=== PATIENT | female | born 1945 | race Caucasian/White ===

== ENCOUNTER 2016-04-20 09:49 | Outpatient (RCR) ==
[2016-02-21 20:06] VITALS: BMI 19.7
[2016-05-19 13:34] VITALS: BP 134/62
== END 2016-05-19 ==
LOC: PUL.REHAB 09:49
PROVIDERS: ATTEND Internal Medicine
DX: J44.9 Chronic obstructive pulmonary disease, unspecified (principal)

== ENCOUNTER 2016-05-20 07:58 | Outpatient (RCR) ==
[2016-02-21 20:06] VITALS: BMI 19.7
== END 2016-06-16 ==
LOC: PUL.REHAB 07:58
PROVIDERS: ATTEND Internal Medicine
DX: J44.9 Chronic obstructive pulmonary disease, unspecified (principal)

== ENCOUNTER 2016-05-27 07:02 | Inpatient (IN) ==
[2016-05-27 07:11] LABS: ABG PH 7.304 (7.35-7.45)
[2016-05-27 07:12] LABS: ABG BASE EXCESS 11 (-2.0-2.0); ABG HCO3 37.1 (22.0-26.0); ABG PCO2 74.7 mmHg (35-45); ABG TCO2 39 (22.0-28.0)
--- NOTE | 2016-05-27 07:17 | ED.PDOC ---
General ED Provider: Dr. HORACIO VILLEDA JR Chief Complaint: Shortness of Air Stated Complaint: patient states she has been short of breath for approx 1 1/2 weeks but became severe yesterday. states cough is prod. of yellow phlegm. also c/o nasal congestion. patient states it is severe[End] Time Seen by Physician: 07:05 Mode of Arrival: Wheelchair Information Source: Patient, Family Exam Limitations: Clinical condition Primary Care Provider: SIDDHARTHA BRITO Nursing and Triage Documentation Reviewed and Agree: No Review of Systems - Review Of Systems Constitutional: Reports: Malaise Eyes: Reports: No symptoms Ears, Nose, Mouth, Throat: Reports: No symptoms Respiratory: Reports: Cough, Short of air, Wheezing Cardiac: Reports: No symptoms GI: Reports: No symptoms : Reports: No symptoms Musculoskeletal: Reports: No symptoms Skin: Reports: No symptoms Neurological: Reports: No symptoms Endocrine: Reports: No symptoms Hematologic/Lymphatic: Reports: No symptoms All Other Systems: Other Past Medical History - Past Medical History Endocrine: Reports: Dyslipidemia Cardiovascular: Reports: Hypertension Respiratory: Reports: COPD Hematological: Reports: None Gastrointestinal: Reports: None Genitourinary: Reports: None Neuro/Psych: Reports: Anxiety, Depression Musculoskeletal: Reports: None Cancer: Reports: None Last Menstrual Period: n/a - Surgical History General Surgical History: Reports: Unknown - Family History Family History: Reports: Unknown - Social History Smoking Status: Current every day smoker, Heavy tobacco smoker Hx Substance Use: No Alcohol Screening: Occasionally Physical Exam - Physical Exam Appearance: Ill-appearing, Thin Pain Distress: Severe Eyes: ARIEL, EOMI, Conjunctiva clear ENT: Ears normal, Nose normal, Oropharynx normal Neck: Supple Respiratory: Airway patent, Breath sounds diminished, Wheezes Cardiovascular: RRR, Pulses normal, No rub, No murmur GI/: Soft, Nontender, No masses, Bowel sounds normal, No Organomegaly Musculoskeletal: Normal strength, ROM intact, No edema, No calf tenderness Skin: Warm, Dry, Normal color Neurological: Sensation intact, Motor intact, Reflexes intact, Cranial nerves intact, Alert, Oriented Psychiatric: Anxious Interpretation - EKG Interpretation Time of EKG #1: 07:15 Rate: Normal Rhythm: Sinus Ectopy: PVCs, PACs Trevor: NL ST Segment: Normal (invertedt waves deep and s waves) Critical Care Note - Critical Care Note Total Time (mins): 10 Course - Course Hematology/Chemistry: 05/27/16 07:30 05/27/16 07:30 Orders, Labs, Meds: Lab Review 05/27/16 05/27/16 05/27/16 07:04 07:22 07:30 WBC 12.89 H RBC 3.59 L Hgb 9.9 L Hct 32.6 L MCV 90.8 MCH 27.6 MCHC 30.4 L RDW Coeff of Tr 14.3 Plt Count 156 Immature Gran % (Auto) 1.7 Neut % (Auto) 74.6 Lymph % (Auto) 13.9 [place] % (Auto) 9.4 Eos % (Auto) 0.2 Baso % (Auto) 0.2 Immature Gran # (Auto) 0.2 Neut # 9.6 H Lymph # 1.8 [place] # 1.2 Eos # 0.0 Baso # 0.0 D-Dimer 0.75 Puncture Site R radial Rb O2 Saturation 87.0 L 90.0 L ABG pH 7.304 L 7.337 L ABG pCO2 74.7 H 70.4 H ABG pO2 61.0 L 64.0 L ABG HCO3 37.1 H 37.7 H ABG Total CO2 39 H 40 H ABG Base Excess 11 H 12 H Miki Test + O2 Delivery Device Nc Nc Oxygen Liter Flow 2.50 2.00 FiO2 % 28.0 Sodium 142 Potassium 4.0 Chloride 96 L Carbon Dioxide 37 H Anion Gap 13.0 BUN 14 Creatinine 0.87 Estimated GFR (MDRD) 64.00 BUN/Creatinine Ratio 16.09 Glucose 137 H Lactic Acid 9.6 Calcium 9.7 Total Bilirubin 0.37 AST 18 ALT 24 Alkaline Phosphatase 62 Total Creatine Kinase 31 Troponin I 0.0190 B-Natriuretic Peptide 1147 H Total Protein 6.4 Albumin 3.5 Globulin 2.9 Albumin/Globulin Ratio 1.21 Procalcitonin < 0.05 Orders Category Date Time Status ADMIT PATIENT INPATIENT .TO [facility] (MONITORED BED) ADMISSION 05/27/16 09: 09 Active ABG DRAW REQUEST Stat CARDIO 05/27/16 07:04 Completed ABG DRAW REQUEST Urgent CARDIO 05/27/16 07:50 Completed EKG-(ED ONLY) Stat CARDIO 05/27/16 07:03 Completed EKG-(IP & OP ONLY) DAILY CARDIO 05/28/16 06:00 Ordered EKG-(IP & OP ONLY) DAILY CARDIO 05/29/16 06:00 Ordered EKG-(IP & OP ONLY) DAILY CARDIO 05/30/16 06:00 Ordered NEBULIZER TREATMENT Routine CARDIO 05/27/16 09:14 Active NEBULIZER TREATMENT Stat CARDIO 05/27/16 07:22 Completed OXYGEN Routine CARDIO 05/27/16 09:12 Active ACTIVITY .Early Mobilization for VTE Prevention CARE 05/27/16 09:09 Completed INTAKE & OUTPUT Q8HR CARE 05/27/16 09:09 Active TELEMETRY MONITORING TELE CARE 05/27/16 09:10 Active VITAL SIGNS Q4HR CARE 05/27/16 09:09 Active CARDIAC DIET DIETARY 05/27/16 Lunch Ordered ED APPLY O2 .ONCE EMERGENCY 05/27/16 07:03 Active ED POSTAL SUPPORT EMPLOYEE APPLIED .ONCE EMERGENCY 05/27/16 07:03 Active ED IV/MEDIPORT/POWERPORT .ONCE EMERGENCY 05/27/16 07:03 Active ABG Stat LAB 05/27/16 07:04 Completed ABG Stat LAB 05/27/16 07:22 Completed B-TYPE NATRIURETIC PEPTIDE Stat LAB 05/27/16 07:30 Completed BLOOD CULTURE Stat LAB 05/27/16 07:30 Received CBC W/ AUTO DIFF DAILY@0600 LAB 05/28/16 06:00 Ordered CBC W/ AUTO DIFF DAILY@0600 LAB 05/29/16 06:00 Ordered CBC W/ AUTO DIFF DAILY@0600 LAB 05/30/16 06:00 Ordered CBC W/ AUTO DIFF DAILY@0600 LAB 05/31/16 06:00 Ordered CBC W/ AUTO DIFF DAILY@0600 LAB 06/01/16 06:00 Ordered CBC W/ AUTO DIFF DAILY@0600 LAB 06/02/16 06:00 Ordered CBC W/ AUTO DIFF DAILY@0600 LAB 06/03/16 06:00 Ordered CBC W/ AUTO DIFF DAILY@0600 LAB 06/04/16 06:00 Ordered CBC W/ AUTO DIFF DAILY@0600 LAB 06/05/16 06:00 Ordered CBC W/ AUTO DIFF DAILY@0600 LAB 06/06/16 06:00 Ordered CBC W/ AUTO DIFF DAILY@0600 LAB 06/07/16 06:00 Ordered CBC W/ AUTO DIFF DAILY@0600 LAB 06/08/16 06:00 Ordered CBC W/ AUTO DIFF DAILY@0600 LAB 06/09/16 06:00 Ordered CBC W/ AUTO DIFF DAILY@0600 LAB 06/10/16 06:00 Ordered CBC W/ AUTO DIFF DAILY@0600 LAB 06/11/16 06:00 Ordered CBC W/ AUTO DIFF DAILY@0600 LAB 06/12/16 06:00 Ordered CBC W/ AUTO DIFF DAILY@0600 LAB 06/13/16 06:00 Ordered CBC W/ AUTO DIFF DAILY@0600 LAB 06/14/16 06:00 Ordered CBC W/ AUTO DIFF DAILY@0600 LAB 06/15/16 06:00 Ordered CBC W/ AUTO DIFF DAILY@0600 LAB 06/16/16 06:00 Ordered CBC W/ AUTO DIFF Stat LAB 05/27/16 07:30 Completed COMPREHENSIVE METABOLIC PANEL DAILY@0600 LAB 05/28/16 06:00 Ordered COMPREHENSIVE METABOLIC PANEL DAILY@0600 LAB 05/29/16 06:00 Ordered COMPREHENSIVE METABOLIC PANEL DAILY@0600 LAB 05/30/16 06:00 Ordered COMPREHENSIVE METABOLIC PANEL DAILY@0600 LAB 05/31/16 06:00 Ordered COMPREHENSIVE METABOLIC PANEL DAILY@0600 LAB 06/01/16 06:00 Ordered COMPREHENSIVE METABOLIC PANEL DAILY@0600 LAB 06/02/16 06:00 Ordered COMPREHENSIVE METABOLIC PANEL DAILY@0600 LAB 06/03/16 06:00 Ordered COMPREHENSIVE METABOLIC PANEL DAILY@0600 LAB 06/04/16 06:00 Ordered COMPREHENSIVE METABOLIC PANEL DAILY@0600 LAB 06/05/16 06:00 Ordered COMPREHENSIVE METABOLIC PANEL DAILY@0600 LAB 06/06/16 06:00 Ordered COMPREHENSIVE METABOLIC PANEL DAILY@0600 LAB 06/07/16 06:00 Ordered COMPREHENSIVE METABOLIC PANEL DAILY@0600 LAB 06/08/16 06:00 Ordered COMPREHENSIVE METABOLIC PANEL DAILY@0600 LAB 06/09/16 06:00 Ordered COMPREHENSIVE METABOLIC PANEL DAILY@0600 LAB 06/10/16 06:00 Ordered COMPREHENSIVE METABOLIC PANEL DAILY@0600 LAB 06/11/16 06:00 Ordered COMPREHENSIVE METABOLIC PANEL DAILY@0600 LAB 06/12/16 06:00 Ordered COMPREHENSIVE METABOLIC PANEL DAILY@0600 LAB 06/13/16 06:00 Ordered COMPREHENSIVE METABOLIC PANEL DAILY@0600 LAB 06/14/16 06:00 Ordered COMPREHENSIVE METABOLIC PANEL DAILY@0600 LAB 06/15/16 06:00 Ordered COMPREHENSIVE METABOLIC PANEL DAILY@0600 LAB 06/16/16 06:00 Ordered COMPREHENSIVE METABOLIC PANEL Stat LAB 05/27/16 07:30 Completed CREATINE KINASE Q8H LAB 05/27/16 15:15 Ordered CREATINE KINASE Q8H LAB 05/27/16 23:15 Ordered CREATINE KINASE Stat LAB 05/27/16 07:30 Completed D-DIMER Stat LAB 05/27/16 07:30 Completed LACTIC ACID Stat LAB 05/27/16 07:30 Completed PROCALCITONIN Stat LAB 05/27/16 07:30 Completed SPUTUM CULTURE Stat LAB 05/27/16 07:28 Uncollected TROPONIN I Q8H LAB 05/27/16 15:15 Ordered TROPONIN I Q8H LAB 05/27/16 23:15 Ordered TROPONIN I Stat LAB 05/27/16 07:30 Completed URINALYSIS C & S IF INDICATED Stat LAB 05/27/16 07:40 Uncollected 0.9 % Sodium Chloride [Saline Flush] MEDS 05/27/16 07:03 Active 1 syr IVF PRN PRN Albuterol Sulfate 0.083% Neb [Albuterol 0.083% Neb] MEDS 05/27/16 09:18 Active 1 vial NEB PRN PRN Albuterol Sulfate [Proair Hfa] MEDS 05/27/16 09:18 Active 1 puff IH Q4-6H PRN Alprazolam [Xanax] MEDS 05/27/16 21:00 Active 0.25 mg PO BID Alprazolam [Xanax] MEDS 05/27/16 21:00 Active 0.5 mg PO BEDTIME Amlodipine Besylate [Norvasc] MEDS 05/27/16 07:34 Discontinued 5 mg PO ONCE STA Aspirin [Aspirin Chewable] MEDS 05/27/16 10:00 Active 81 mg PO DAILYWM Azithromycin Inj [Zithromax] 500 mg MEDS 05/27/16 09:30 Active 0.9 % Sodium Chloride [Sodium Chloride] 250 ml IV DAILY Budesonide [Pulmicort Flexhaler] MEDS 05/27/16 21:00 Active 180 mcg IH BID Ceftriaxone Sodium [Rocephin] MEDS 05/27/16 08:01 Discontinued 1 gm .ROUTE .STK-MED ONE Ceftriaxone Sodium [Rocephin] 1 gm MEDS 05/27/16 08:09 Discontinued 0.9 % Sodium Chloride [Sodium Chloride] 100 ml IV ONCE Cilostazol [Pletal] MEDS 05/27/16 10:00 Active 100 mg PO BIDAC Clopidogrel Bisulfate [Plavix] MEDS 05/27/16 10:00 Active 75 mg PO DAILY Cyanocobalamin (Vitamin B-12) [B-12] MEDS 05/28/16 09:00 Active 500 mcg PO DAILY Diphenhydramine HCl [Benadryl] MEDS 05/27/16 21:00 Active 25 mg PO BEDTIME Guaifenesin/Codeine Phosphate [Robitussin AC Syrup] MEDS 05/27/16 07:30 Discontinued 5 ml PO ONCE STA Hydrocodone Bit/Acetaminophen [Matthews 10-325] MEDS 05/27/16 09:18 Active 1 tab PO TID PRN Ipratropium/Albuterol Neb [Duoneb] MEDS 05/27/16 07:21 Discontinued 1 vial NEB ONCE STA Ipratropium/Albuterol Neb [Duoneb] MEDS 05/27/16 10:00 Active 1 vial NEB RTQID Levalbuterol HCl [Xopenex 1.25 mg] MEDS 05/27/16 09:18 Active 1 vial NEB BID PRN Olmesartan Medoxomil [Benicar] MEDS 05/27/16 08:10 Discontinued 20 mg PO ONCE STA Pantoprazole Sodium [Protonix] MEDS 05/27/16 10:00 Active 40 mg PO QDAC Roflumilast [Daliresp] MEDS 05/27/16 10:00 Active 500 mcg PO DAILY Rosuvastatin Calcium [Crestor] MEDS 05/27/16 21:00 Active 20 mg PO BEDTIME Tiotropium [place] [Spiriva] MEDS 05/27/16 10:00 Active 1 cap IH DAILY Triamterene/Hydrochlorothiazid [Dyazide] MEDS 05/27/16 10:00 Active 1 cap PO DAILY RESUSCITATION STATUS Routine OTHERS 05/27/16 09:09 Completed CHEST, 1V AP ONLY Stat RADS 05/27/16 07:[address] HEAD W/O CONTRAST Stat RADS 05/27/16 08:56 Completed Medications Generic Name Dose Route Start Last Admin Trade Name Freq PRN Reason Stop Dose Admin Acetaminophen/Hydrocodone Bitart 1 tab 05/27/16 09:18 05/27/16 11:49 [place] 10-325 PO 1 tab TID PRN Administration pain Albuterol Sulfate 1 puff 05/27/16 09:18 Proair Hfa IH Q4-6H PRN Wheezing Albuterol Sulfate 1 vial 05/27/16 09:18 Albuterol 0.083% Neb NEB PRN PRN Wheezing Albuterol/Ipratropium 1 vial 05/27/16 10:00 05/27/16 09:33 Duoneb NEB 1 vial RTQID AYAD Administration Alprazolam 0.25 mg 05/27/16 21:00 Xanax PO BID AYAD Alprazolam 0.5 mg 05/27/16 21:00 Xanax PO BEDTIME AYAD Aspirin 81 mg 05/27/16 10:00 05/27/16 11:25 Aspirin Chewable PO 81 mg DAILYWM AYAD Administration Carvedilol 25 mg 05/27/16 17:30 Coreg PO BIDWM AYAD Cholecalciferol 400 unit 05/27/16 10:30 05/27/16 11:33 Vitamin D PO 400 unit DAILY AYAD Administration Cilostazol 100 mg 05/27/16 10:00 05/27/16 11:32 Pletal PO 100 mg BIDAC AYAD Administration Clopidogrel Bisulfate 75 mg 05/27/16 10:00 05/27/16 11:31 Plavix PO 75 mg DAILY AYAD Administration Diphenhydramine HCl 25 mg 05/27/16 21:00 Benadryl PO BEDTIME AYAD Duloxetine HCl 60 mg 05/27/16 10:30 05/27/16 11:27 Cymbalta PO 60 mg DAILY AYAD Administration Ferrous Sulfate 324 mg 05/27/16 10:30 05/27/16 11:28 Ferrous Sulfate PO 324 mg BID AYAD Administration Formoterol Fumarate 1 mcg 05/27/16 18:00 Perforomist NEB RTBID AYAD Hydralazine HCl 100 mg 05/27/16 10:30 05/27/16 11:25 Apresoline PO 100 mg BID AYAD Administration Azithromycin 500 mg/ Sodium 250 mls @ 125 mls/hr 05/27/16 09:30 05/27/16 11: 35 Chloride IV 05/29/16 11:00 125 mls/hr DAILY AYAD Administration Ceftriaxone Sodium 1 gm/ 100 mls @ 100 mls/hr 05/28/16 09:00 Sodium Chloride IV DAILY AYAD Levalbuterol HCl 1 vial 05/27/16 09:18 Xopenex 1.25 Mg NEB BID PRN Wheezing Meloxicam 15 mg 05/27/16 12:00 05/27/16 11:30 Mobic PO 15 mg DAILYWM AYAD Administration Methylprednisolone Sodium Succinate 80 mg 05/27/16 12:00 05/27/16 13:07 Solu-Medrol 125 Mg IVP 80 mg Q6HR AAYD Administration Non-Formulary Medication 500 mcg 05/28/16 09:00 Cyanocobalamin (Vitamin B-12) [B-12] PO DAILY AYAD Non-Formulary Medication 180 mcg 05/27/16 21:00 Budesonide [Pulmicort Flexhaler] IH BID AYAD Pantoprazole Sodium 40 mg 05/27/16 10:00 05/27/16 11:32 Protonix PO 40 mg QDAC AYAD Administration Potassium Chloride 8 meq 05/27/16 10:00 05/27/16 11:29 Klor-Con 8 Meq PO 8 meq DAILY AYAD Administration Pregabalin 100 mg 05/27/16 10:00 05/27/16 11:48 Lyrica PO 100 mg BID AYAD Administration Roflumilast 500 mcg 05/27/16 10:00 05/27/16 11:28 Daliresp PO 500 mcg DAILY AYAD Administration Rosuvastatin Calcium 20 mg 05/27/16 21:00 Crestor PO BEDTIME AYAD Sodium Chloride 1 syr 05/27/16 07:03 Saline Flush IVF PRN PRN To flush IV Tiotropium [place] 1 cap 05/27/16 10:00 05/27/16 11:32 Spiriva IH 1 cap DAILY AYAD Administration Tizanidine HCl 4 mg 05/27/16 10:30 05/27/16 11:33 Zanaflex PO 4 mg BID AYAD Administration Triamterene/HCTZ 1 cap 05/27/16 10:00 05/27/16 11:24 Dyazide PO 1 cap DAILY AYAD Administration Discontinued Medications Generic Name Dose Route Start Last Admin Trade Name Freq PRN Reason Stop Dose Admin Albuterol/Ipratropium 1 vial 05/27/16 07:21 05/27/16 07:20 Duoneb NEB 05/27/16 07:22 1 vial ONCE STA Administration Alprazolam 0.25 mg 05/27/16 12:58 05/27/16 13:09 Xanax PO 05/27/16 12:59 0.25 mg ONCE STA Administration Amlodipine Besylate 5 mg 05/27/16 07:34 05/27/16 08:22 Norvasc PO 05/27/16 07:35 5 mg ONCE STA Administration Guaifenesin/Codeine Phosphate 5 ml 05/27/16 07:30 05/27/16 08:20 Robitussin Ac Syrup PO 05/27/16 07:31 5 ml ONCE STA Administration Ceftriaxone Sodium 1 gm/ 100 mls @ 100 mls/hr 05/27/16 08:09 05/27/16 08:22 Sodium Chloride IV 05/27/16 09:08 100 mls/hr ONCE STA Administration Olmesartan 20 mg 05/27/16 08:10 05/27/16 08:22 Benicar PO 05/27/16 08:11 20 mg ONCE STA Administration Vital Signs: Temp Pulse Resp BP Pulse Ox 05/27/16 07:02 98.8 F 107 H 36 H 142/88 H 74 L Departure - Departure Time of Disposition: 09:10 Disposition: ADMITTED INPATIENT Discharge Problem: Pneumonia, COPD (chronic obstructive pulmonary disease) Condition: Stable Pt referred to PMD for follow-up: Yes Allergies/Adverse Reactions: Allergies No Known Allergies Allergy (Verified 05/27/16 07:15) Home Medications: Ambulatory Orders Cilostazol [Pletal] 100 mg PO BIDAC 12/09/12 Cyanocobalamin (Vitamin B-12) [B-12] 500 mcg PO DAILY 12/09/12 Potassium Chloride [Micro-K Cap] 5 meq PO DAILYWM 12/09/12 Tiotropium [place] [Spiriva] 1 cap IH DAILY 12/09/12 Roflumilast [Daliresp] 500 mcg PO DAILY 03/29/15 Ferrous Gluconate 324 mg PO BID 06/17/15 Hydrocodone Bit/Acetaminophen [[place] 10-325] 1 each PO TID PRN 06/17/15 Duloxetine HCl [Cymbalta] 60 mg PO DAILY 06/18/15 Albuterol Sulfate [Ventolin Hfa] 1 puff IH Q4-6H PRN 12/27/15 Rosuvastatin Calcium [Crestor] 20 mg PO BEDTIME 12/27/15 Triamterene/Hydrochlorothiazid [Dyazide] 1 cap PO DAILY #30 capsule 12/31/15 Albuterol Sulfate 0.083% Neb [Albuterol 0.083% Neb] 1 vial NEB PRN PRN 02/21/16 Alprazolam 0.5 mg PO BEDTIME 05/27/16 Alprazolam [Xanax] 0.25 mg PO BID 05/27/16 Arformoterol Tartrate [Brovana] 1 vial IH Q12H 05/27/16 Aspirin 81 mg PO DAILY 05/27/16 Budesonide [Pulmicort Flexhaler] 180 mcg IH BID 05/27/16 Carvedilol [Coreg] 25 mg PO BID 05/27/16 Cholecalciferol (Vitamin D3) [Vitamin D3] 400 unit PO DAILY 05/27/16 Clopidogrel Bisulfate [Plavix] 75 mg PO DAILY 05/27/16 Diphenhydramine HCl [Benadryl] 25 mg PO BEDTIME 05/27/16 Escitalopram Oxalate [Lexapro] 10 mg PO DAILY 05/27/16 Hydralazine HCl 100 mg PO BID 05/27/16 Levalbuterol HCl [Xopenex] 1.25 mg IH BID 05/27/16 Meloxicam 15 mg PO DAILY 05/27/16 Pantoprazole Sodium [Protonix] 40 mg PO QDAC 05/27/16 Pregabalin [Lyrica] 100 mg PO BID 05/27/16 Tiotropium [place] [Spiriva] 1 cap IH DAILY 05/27/16 Tizanidine HCl [Zanaflex] 4 mg PO BID 05/27/16 Triamterene/Hydrochlorothiazid [Dyazide] 1 cap PO DAILY 05/27/16
[2016-05-27] MEDS ORDERED: DUONEB NEB STA (07:21)
[2016-05-27] MEDS ORDERED: ROCEPHIN 1 GM in SODIUM CHLORIDE 50 ML IV STA (07:28)
[2016-05-27] MEDS ORDERED: ROBITUSSIN AC SYRUP PO STA (07:30)
[2016-05-27] MEDS ORDERED: NORVASC PO STA (07:34)
--- NOTE | 2016-05-27 07:34 | DI ---
EXAM: Chest one view, frontal view only. HISTORY: Chest pain. COMPARISON: 02/21/2016. FINDINGS: Heart size is normal. Atherosclerotic calcifications present. There is consolidation in the left base and left perihilar region which is new. Lungs otherwise clear save for calcified gra nulomatous changes. No pleural effusion or pneumothorax identified. Osseous structures are intact. IMPRESSION: Left lung pneumonia.
[2016-05-27 07:35] LABS: BASOPHILS % (AUTO) 0.2 % (0.0-3.0); EOSINOPHILS % (AUTO) 0.2 % (0.0-7.0); HEMATOCRIT 32.6 % (37.0-47.0); HEMOGLOBIN 9.9 g/dl (12.0-16.0); IMMATURE GRANULOCYTE % (AUTO) 1.7 % (0.0-5.0); LYMPHOCYTES # (AUTO) 1.8 K/uL (0.60-3.4); LYMPHOCYTES % (AUTO) 13.9 (10.0-50.0); MEAN CORPUSCULAR HEMOGLOBIN 27.6 pg (27.0-31.0); MEAN CORPUSCULAR HGB CONC 30.4 (31.8-35.4); MEAN CORPUSCULAR VOLUME 90.8 fl (81.0-99.0); MONOCYTES # (AUTO) 1.2 K/uL (0.4-2.0); MONOCYTES % (AUTO) 9.4 (0-10); NEUTROPHILS # (AUTO) 9.6 K/ul (2.0-6.9); NEUTROPHILS % (AUTO) 74.6; PLATELET COUNT 156 10^3/uL (140-440); RED BLOOD COUNT 3.59 10^6/ul (4.20-5.40); WHITE BLOOD COUNT 12.89 K/ul (4.6-10.2)
[2016-05-27] MEDS ORDERED: COREG PO STA (07:41)
[2016-05-27 08:00] LABS: ALBUMIN 3.5 g/dL (3.4-5.0); ALBUMIN/GLOBULIN RATIO 1.21; BILIRUBIN,TOTAL 0.37 mg/dL (0.00-1.20); BUN/CREATININE RATIO 16.09; CALCIUM 9.7 mg/dL (8.2-10.2); CREATININE 0.87 mg/dL (0.60-1.30); TOTAL PROTEIN 6.4 g/dL (5.8-8.1); TROPONIN I 0.019 ng/ml (0.0000-0.4000)
[2016-05-27] MEDS ORDERED: ROCEPHIN ONE (08:01)
[2016-05-27 08:02] LABS: ABG PH 7.337 (7.35-7.45)
[2016-05-27 08:04] LABS: ABG BASE EXCESS 12 (-2.0-2.0); ABG HCO3 37.7 (22.0-26.0); ABG PCO2 70.4 mmHg (35-45); ABG TCO2 40 (22.0-28.0)
[2016-05-27] MEDS ORDERED: ROCEPHIN 1 GM in SODIUM CHLORIDE 100 ML IV STA (08:09)
[2016-05-27] MEDS ORDERED: BENICAR PO STA (08:10)
[2016-05-27] MEDS ORDERED: XOPENEX 1.25 MG NEB PRN (09:18)
[2016-05-27] MEDS ORDERED: PROAIR HFA IH PRN (09:18)
[2016-05-27] MEDS ORDERED: ALBUTEROL 0.083% NEB NEB PRN (09:18)
[2016-05-27] MEDS ORDERED: ARFORMOTEROL TARTRATE IH SCH (09:30)
[2016-05-27] MEDS: DUONEB NEB SCH ×3 (09:33→20:15)
--- NOTE | 2016-05-27 09:53 | CT ---
EXAM: CT head without contrast. HISTORY: Mental status change. Hallucinations. COMPARISON: 05/17/2015. TECHNIQUE: Multiple axial images of the brain were obtained from the skull base through the vertex without intravenous contrast. FINDINGS: The right frontal temporal region meningioma seen on prior MRI is not well seen by CT. T here is no intracranial hemorrhage or extraaxial collection. The rowe-white differentiation is main tained without evidence for acute large vascular territory infarction. There are areas of periventr icular and subcortical white matter low attenuation. The cortical sulci and cerebral ventricles are symmetrically enlarged. The basal cisterns are well visualized. There is no hydrocephalus, mass e ffect, or midline shift. The paranasal sinuses and mastoid air cells are clear. The calvarium is i ntact. Since the prior study, there has been no significant interval change. IMPRESSION: 1. No acute intracranial abnormality. 2. Chronic small vessel ischemic changes and atrophy.
[2016-05-27 10:43] VITALS: BMI 20.2
[2016-05-27] MEDS: DYAZIDE PO SCH (11:24)
[2016-05-27] MEDS: ASPIRIN CHEWABLE PO SCH (11:25)
[2016-05-27] MEDS: APRESOLINE PO SCH ×2 (11:25→20:25)
[2016-05-27] MEDS: CYMBALTA PO SCH (11:27)
[2016-05-27] MEDS: DALIRESP PO SCH (11:28)
[2016-05-27] MEDS: FERROUS SULFATE PO SCH ×2 (11:28→20:25)
[2016-05-27] MEDS: KLOR-CON 8 MEQ PO SCH (11:29)
[2016-05-27] MEDS: MOBIC PO SCH (11:30)
[2016-05-27] MEDS: PLAVIX PO SCH (11:31)
[2016-05-27] MEDS: PLETAL PO SCH ×2 (11:32→17:16)
[2016-05-27] MEDS: PROTONIX PO SCH (11:32)
[2016-05-27] MEDS: SPIRIVA IH SCH (11:32)
[2016-05-27] MEDS: ZANAFLEX PO SCH ×2 (11:33→20:26)
[2016-05-27] MEDS: VITAMIN D PO SCH (11:33)
[2016-05-27] MEDS: ZITHROMAX 500 MG in SODIUM CHLORIDE 250 ML IV SCH (11:35)
[2016-05-27] MEDS: LYRICA PO SCH ×2 (11:48→20:25)
[2016-05-27] MEDS: NORCO 10-325 PO PRN ×2 (11:49→20:26)
[2016-05-27] MEDS ORDERED: SOLU-MEDROL 40 MG IVP SCH (12:00)
[2016-05-27] MEDS ORDERED: XANAX PO STA (12:58)
[2016-05-27] MEDS: SOLU-MEDROL 125 MG IVP SCH ×3 (13:07→23:11)
[2016-05-27 15:31] LABS: TROPONIN I 0.018 ng/ml (0.0000-0.4000)
[2016-05-27] MEDS: COREG PO SCH (17:16)
[2016-05-27] MEDS: PERFOROMIST NEB SCH (17:59)
[2016-05-27 20:23] LABS: BILIRUBIN,URINE Negative (NEGATIVE); KETONES,URINE Negative (NEGATIVE); LEUKOCYTE ESTERASE ,URINE Negative (NEGATIVE); NITRITE,URINE Negative (NEGATIVE); PROTEIN,URINE Negative (NEGATIVE); URINE, BLOOD Negative (NEGATIVE)
[2016-05-27] MEDS: XANAX PO SCH (20:26)
[2016-05-27] MEDS: CRESTOR PO SCH (20:26)
[2016-05-27] MEDS: BUDESONIDE 180 MCG IH SCH ×22 (20:28)
[2016-05-27 20:29] LABS: ADD URINE MICROSCOPIC NO
[2016-05-27] MEDS ORDERED: NON-FORMULARY MEDICATION (Carvedilol [Coreg] 25 MG) PO SCH ×22 (21:00)
[2016-05-27] MEDS ORDERED: NON-FORMULARY MEDICATION (Pregabalin [Lyrica] 100 MG) PO SCH (21:00)
[2016-05-27] MEDS ORDERED: NON-FORMULARY MEDICATION (Ferrous Gluconate [Ferrous Gluconate] 324 MG) PO SCH (21:00)
[2016-05-27] MEDS ORDERED: NON-FORMULARY MEDICATION (Hydralazine Hcl [Hydralazine Hcl] 100 MG) PO SCH (21:00)
[2016-05-27] MEDS ORDERED: XANAX PO SCH (21:00)
[2016-05-27] MEDS ORDERED: NON-FORMULARY MEDICATION (Tizanidine Hcl [Zanaflex] 4 MG) PO SCH ×22 (21:00)
[2016-05-27] MEDS ORDERED: BENADRYL PO SCH (21:00)
[2016-05-27 23:30] LABS: TROPONIN I 0.026 ng/ml (0.0000-0.4000)
[2016-05-28] MEDS: NORCO 10-325 PO PRN (03:21)
[2016-05-28] MEDS: SOLU-MEDROL 125 MG IVP SCH ×4 (05:30→23:54)
[2016-05-28] MEDS: PROTONIX PO SCH (05:31)
[2016-05-28] MEDS: PLETAL PO SCH ×2 (05:31→18:21)
[2016-05-28] MEDS: PERFOROMIST NEB SCH ×2 (05:49→21:15)
[2016-05-28] MEDS: DUONEB NEB SCH ×4 (05:50→21:15)
[2016-05-28 06:13] LABS: BASOPHILS % (AUTO) 0.1 % (0.0-3.0); HEMATOCRIT 27.7 % (37.0-47.0); HEMOGLOBIN 8.9 g/dl (12.0-16.0); IMMATURE GRANULOCYTE % (AUTO) 0.8 % (0.0-5.0); LYMPHOCYTES # (AUTO) 0.9 K/uL (0.60-3.4); LYMPHOCYTES % (AUTO) 10.9 (10.0-50.0); MEAN CORPUSCULAR HEMOGLOBIN 27.3 pg (27.0-31.0); MEAN CORPUSCULAR HGB CONC 32.1 (31.8-35.4); MONOCYTES # (AUTO) 0.2 K/uL (0.4-2.0); MONOCYTES % (AUTO) 2.2 (0-10); NEUTROPHILS # (AUTO) 7.4 K/ul (2.0-6.9); PLATELET COUNT 139 10^3/uL (140-440); RED BLOOD COUNT 3.26 10^6/ul (4.20-5.40); WHITE BLOOD COUNT 8.59 K/ul (4.6-10.2)
[2016-05-28 06:40] LABS: ALBUMIN 3.2 g/dL (3.4-5.0); ALBUMIN/GLOBULIN RATIO 1.28; ANION GAP 9.6; BILIRUBIN,TOTAL 0.41 mg/dL (0.00-1.20); BUN/CREATININE RATIO 19.31; CALCIUM 9.4 mg/dL (8.2-10.2); CREATININE 0.88 mg/dL (0.60-1.30); POTASSIUM 3.6 mmol/L (3.5-5.10); TOTAL PROTEIN 5.7 g/dL (5.8-8.1)
[2016-05-28] MEDS ORDERED: MICRO-K CAP PO SCH (08:00)
[2016-05-28] MEDS: MOBIC PO SCH (08:24)
[2016-05-28] MEDS: ASPIRIN CHEWABLE PO SCH (08:24)
[2016-05-28] MEDS: COREG PO SCH ×2 (08:24→18:37)
[2016-05-28] MEDS: ROCEPHIN 1 GM in SODIUM CHLORIDE 100 ML IV SCH (08:25)
[2016-05-28] MEDS: SPIRIVA IH SCH (08:27)
[2016-05-28] MEDS: PLAVIX PO SCH (08:28)
[2016-05-28] MEDS: VITAMIN D PO SCH (08:28)
[2016-05-28] MEDS: LYRICA PO SCH ×2 (08:29→20:27)
[2016-05-28] MEDS: XANAX PO SCH (08:29)
[2016-05-28] MEDS: ZANAFLEX PO SCH ×2 (08:30→20:27)
[2016-05-28] MEDS: FERROUS SULFATE PO SCH ×2 (08:30→20:25)
[2016-05-28] MEDS: DYAZIDE PO SCH (08:30)
[2016-05-28] MEDS: DALIRESP PO SCH (08:31)
[2016-05-28] MEDS: CYMBALTA PO SCH (08:31)
[2016-05-28] MEDS: APRESOLINE PO SCH ×2 (08:31→20:26)
[2016-05-28] MEDS ORDERED: NON-FORMULARY MEDICATION (Duloxetine Hcl [Cymbalta] 60 MG) PO SCH ×22 (09:00)
[2016-05-28] MEDS ORDERED: NON-FORMULARY MEDICATION (Cholecalciferol (Vitamin D3) [Vitamin D3] 400 UNIT) PO SCH (09:00)
[2016-05-28] MEDS ORDERED: NON-FORMULARY MEDICATION (Meloxicam [Meloxicam] 15 MG) PO SCH ×22 (09:00)
[2016-05-28] MEDS: KLOR-CON 8 MEQ PO SCH (09:00)
[2016-05-28] MEDS: ZITHROMAX 500 MG in SODIUM CHLORIDE 250 ML IV SCH (10:42)
[2016-05-28] MEDS: BUDESONIDE 180 MCG IH SCH ×44 (10:43→21:03)
[2016-05-28] MEDS: NON-FORMULARY MEDICATION (Cyanocobalamin (Vitamin B-12) [B-12] 500 MCG) PO SCH ×22 (10:43)
[2016-05-28 12:39] LABS: ABG BASE EXCESS 10 (-2.0-2.0); ABG HCO3 34 (22.0-26.0); ABG PCO2 48.5 mmHg (35-45); ABG PH 7.454 (7.35-7.45); ABG TCO2 35 (22.0-28.0)
--- NOTE | 2016-05-28 14:00 | CT ---
EXAM: CT Head HISTORY: Correspond to this, confusion COMPARISON: 05/27/2016 TECHNIQUE: CT head performed without contrast FINDINGS: There is no mass effect, midline shift, or intracranial hemmorhage. Branch white different iation is preserved. There is no extra-axial collection. The ventricles, sulci, and basal cisterns are patent and symmetric. There is chronic ischemic disease of the white matter and cerebral volum e loss. There is no depressed calvarial fracture. The mastoid air cells are clear. The visualized paranasal sinuses are clear. There are intracranial atherosclerotic calcifications. IMPRESSION: 1. No acute intracranial abnormality. 2. Chronic ischemic disease of the white matter and cerebral volume loss.
[2016-05-28] MEDS: NICODERM 21 MG TD SCH (18:21)
[2016-05-28] MEDS ORDERED: NORCO 5-325 PO STA (18:31)
[2016-05-28] MEDS: CRESTOR PO SCH (20:27)
[2016-05-29] MEDS: DUONEB NEB SCH ×4 (04:45→21:05)
[2016-05-29] MEDS: PERFOROMIST NEB SCH ×2 (04:45→21:05)
[2016-05-29] MEDS: SOLU-MEDROL 125 MG IVP SCH ×3 (05:39→19:24)
[2016-05-29] MEDS: PLETAL PO SCH ×2 (05:40→16:53)
[2016-05-29] MEDS: PROTONIX PO SCH (05:40)
[2016-05-29 06:09] LABS: BASOPHILS % (AUTO) 0.1 % (0.0-3.0); HEMATOCRIT 28.1 % (37.0-47.0); HEMOGLOBIN 9.5 g/dl (12.0-16.0); IMMATURE GRANULOCYTE % (AUTO) 1.4 % (0.0-5.0); LYMPHOCYTES # (AUTO) 1.2 K/uL (0.60-3.4); LYMPHOCYTES % (AUTO) 10.8 (10.0-50.0); MEAN CORPUSCULAR HEMOGLOBIN 27.4 pg (27.0-31.0); MEAN CORPUSCULAR HGB CONC 33.8 (31.8-35.4); MONOCYTES # (AUTO) 0.5 K/uL (0.4-2.0); MONOCYTES % (AUTO) 4.6 (0-10); NEUTROPHILS # (AUTO) 9.4 K/ul (2.0-6.9); NEUTROPHILS % (AUTO) 83.1; PLATELET COUNT 163 10^3/uL (140-440); RED BLOOD COUNT 3.47 10^6/ul (4.20-5.40)
[2016-05-29 06:31] LABS: ALBUMIN 3.4 g/dL (3.4-5.0); ALBUMIN/GLOBULIN RATIO 1.26; ANION GAP 13.1; BILIRUBIN,TOTAL 0.43 mg/dL (0.00-1.20); BUN/CREATININE RATIO 20.4; CALCIUM 9.6 mg/dL (8.2-10.2); CREATININE 0.98 mg/dL (0.60-1.30); POTASSIUM 3.1 mmol/L (3.5-5.10); TOTAL PROTEIN 6.1 g/dL (5.8-8.1)
[2016-05-29] MEDS: LYRICA PO SCH ×2 (09:00→20:59)
[2016-05-29] MEDS: MOBIC PO SCH (09:00)
[2016-05-29] MEDS: VITAMIN D PO SCH (09:00)
[2016-05-29] MEDS: CYMBALTA PO SCH (09:01)
[2016-05-29] MEDS: APRESOLINE PO SCH ×2 (09:01→20:58)
[2016-05-29] MEDS: FERROUS SULFATE PO SCH ×2 (09:02→20:58)
[2016-05-29] MEDS: DYAZIDE PO SCH (09:02)
[2016-05-29] MEDS: COREG PO SCH ×2 (09:02→16:53)
[2016-05-29] MEDS: DALIRESP PO SCH (09:02)
[2016-05-29] MEDS: SPIRIVA IH SCH (09:05)
[2016-05-29] MEDS: NICODERM 21 MG TD SCH (09:05)
[2016-05-29] MEDS: ASPIRIN CHEWABLE PO SCH (09:05)
[2016-05-29] MEDS: ZANAFLEX PO SCH ×2 (09:05→20:59)
[2016-05-29] MEDS: NORCO 5-325 PO PRN ×2 (09:06→17:07)
[2016-05-29] MEDS: KLOR-CON 8 MEQ PO SCH (09:06)
[2016-05-29] MEDS: PLAVIX PO SCH (09:19)
[2016-05-29] MEDS: ROCEPHIN 1 GM in SODIUM CHLORIDE 100 ML IV SCH (09:23)
[2016-05-29] MEDS: NON-FORMULARY MEDICATION (Cyanocobalamin (Vitamin B-12) [B-12] 500 MCG) PO SCH ×22 (09:24)
[2016-05-29] MEDS: XANAX PO SCH ×2 (09:24→20:58)
[2016-05-29] MEDS: BUDESONIDE 180 MCG IH SCH ×44 (09:25→21:00)
[2016-05-29] MEDS: ZITHROMAX 500 MG in SODIUM CHLORIDE 250 ML IV SCH (11:12)
--- NOTE | 2016-05-29 13:38 | HP ---
DATE OF SERVICE: 05/27/16 REASON FOR HOSPITALIZATION: Shortness of breath. HISTORY OF PRESENT ILLNESS: The patient is a 71 year old female with a history of COPD and nicotine use. She has been coughing and congestion for couple of days. Shortness of breath was gradually worsening, she was taking extra breathing treatment and it was not helping. Today the patient is totally short of breath so she came to the emergency room. She was getting yellow/green phlegm and no fever or chills. She was seen by Dr. Luque in the emergency room. The patient was in mild respiratory distress. Saturation in the emergency room was 74 on the pulse ox, respiratory rate 36. The patient was given a DUO neb treatment, Xanax and Rocephin 1 gram. ABG showed the pH 7.304, pcO2 74.7, pO2 71. The patient was not completely awake and at that time CT of the head was done to rule out stroke but that was negative. After the initial treatment the chest x-ray showed the left lower lobe pneumonia at that time the patient was admitted to the hospital for pneumonia, COPD exacerbation and CO2 narcosis with elevated white count. REVIEW OF SYSTEMS: CONSTITUTIONAL: No night sweats. Weakness, tiredness. No fever or chills. HEENT: Eyes: No visual changes. No eye pain. No eye discharge. ENT: No runny nose. No epistaxis. No sinus pain. No sore throat. No odynophagia. No ear pain. No congestion. RESPIRATORY: Cough and congestion. No hemoptysis. CARDIOVASCULAR: No angina symptoms. No CHF symptoms. No atypical chest pain for CAD. No palpitations. Shortness of breath. GASTROINTESTINAL: No abdominal pain. No nausea or vomiting. No diarrhea or constipation. No hematemesis. No hematochezia. GENITOURINARY: No urgency. No frequency. No dysuria. No hematuria. No obstructive symptoms. No discharge. No pain. No significant abnormal bleeding. MUSCULOSKELETAL: No musculoskeletal pain. No joint swelling. No arthritis. NEUROLOGICAL: No headache. No neck pain. No syncope. No seizures. No dizziness. PSYCHIATRIC: Not anxious. No depression. No suicidal thoughts. No homicidal thoughts. Change in mental status. SKIN: No rash. No lesions. No wounds. ENDOCRINE: No unexplained weight loss. No weight gain. HEMATOLOGIC/LYMPHATIC: No anemia. No purpura. No petechiae. No prolonged or excessive bleeding. No palpable lymph nodes. PERSONAL/FAMILY/SOCIAL HISTORY: The patient is and lives with the . Smokes also one pack of day and significant for the COPD. PAST MEDICAL/SURGICAL PROBLEMS: Coronary artery disease Peripheral arterial disease Atrial fibrillation Hypertension COPD Oxygen dependant Dyslipidemia History of pneumonia Osteoarthritis DJD spine Depression Anxiety Continued nicotine use Hysterectomy, 1989 Vein bypass in the legs, 1999 Abdominal aortic aneurism, 1997 MEDICATIONS: Pletal Vitamin D Potassium Spiriva Daliresp Ferrous Sulfate [place] Cymbalta Ventolin Crestor Dyazide Albuterol Xanax [place] Pulmicort Cored Vitamin D3 Plavix Benadryl Lexapro ALLERGIES: No known allergies PHYSICAL EXAMINATION: VITAL SIGNS: Blood pressure 142/88, respiratory rate 36, heart rate 107, temperature 98.8 and saturation 74%. Once the patient came to the floor saturation was still on 2 liters 87%, blood pressure 180/74, respiratory 20, heart rate 86 and temperature 98.0. HEENT: Head normocephalic, atraumatic. Eyes: Extraocular muscles are intact. Pupils are equal, round and reactive to light and accommodation. Ears: No lesions. Nose appeared normal. Throat: No exudate or erythema. Mucosa dry. Pallor positive. No icterus. NECK: Supple. No JVD, no carotid bruit. No lymphadenopathy or thyromegaly. LUNGS: Bilateral entry is decreased with basilar crackles and expiratory wheeze all over. Percussion note normal. Chest symmetrical. HEART: S1, S2, no S3. No murmurs. No cyanosis or clubbing. No ascites. Pulses: Dorsalis pedis and posterior tibial pulses +1 to +2 both sides. ABDOMEN: Soft. Nontender. Bowel sounds active. No CVA tenderness. No mass felt. EXTREMITIES: No edema. Full range of motion of all extremities, equal. NEUROLOGIC: No focal deficit. Cranial nerves II through XII are grossly intact. No headache, no double vision or headache. Awake, alert and oriented time 3. SKIN: Dry. Intact. Turgor - normal. LYMPHATIC: No palpable lymph nodes/no lymphedema. MUSCULOSKELETAL: Normal joints with no swelling. Muscle tone is normal. LABS: WBC 12.89, hgb 9.9, hct 32.6, plt count 156, d-dimer 0.75, ABG pH 7.304, pCO2 74.7, pO2 61. Sodium 142, potassium 4.0, chloride 96, bicarb 37, BUN 14, creatinine 0.87, glucose 137 and lactic acid is 9.6. First set of cardiac enzymes are negative. BNP 1147. ASSESSMENT: 1. COPD exacerbation secondary to the left lower lobe pneumonia 2. Acute on chronic heart failure 3. CO2 Narcosis 4. Hypertension 5. Dyslipidemia 6. Peripheral arterial disease 7. Continued nicotine use 8. Osteoarthritis 9. DJD spine 10.Depression 11.Anxiety PLAN: 1. Admit patient to the regular floor 2. CBC and CMP today and daily 3. Cardiac enzymes and Troponin 4. Rocephin 1 gram daily 5. Azithromycin 500mg daily 6. Solu-Medrol 80mg Q 8 hours 7. DUO NEBS 8. Daily I&O's Will follow the patient in daily rounds. TIME SPENT: More than 60 minutes. MTDD
--- NOTE | 2016-05-29 14:09 | PN ---
DATE OF SERVICE: 05/28/16 SUBJECTIVE: The patient is admitted with the COPD exacerbation and pneumonia. The patient is sitting in the bed and not in any distress. She says that she is feeling better. Some cough and congestion otherwise no fever or chills. REVIEW OF SYSTEMS: CONSTITUTIONAL: No fever, no chills. HEENT: Normal. ENDOCRINE: No weight gain, no weight loss. CVS: No angina symptoms. No CHF symptoms. No palpitations. No atypical chest pain for CAD. No shortness of breath. No PND, no orthopnea. RESPIRATORY: No cough, no hemoptysis. GI: No nausea, no vomiting. No abdominal pain. : No hematuria. No polyuria. MUSCULOSKELETAL:. No joint swelling. PSYCHIATRIC: Not anxious. No depression. No suicidal thoughts. No homicidal thoughts. SKIN: Intact. No rash. PHYSICAL EXAMINATION: V/S: blood pressure 110/58, respiratory rate 20, heart rate 90 and temperature afebrile. HEENT: Normocephalic, atraumatic. Ears, eyes, nose and throat normal. Mucosa dry. Pallor positive. No icterus. NECK: Supple. No JVD, no carotid bruit. No lymphadenopathy. LUNGS: Decreased entry and basilar crackles with mild expiratory wheeze. No rales or rhonchi. HEART: S1, S2 normal. No S3. No murmur, gallop or regurgitation. ABDOMEN: Soft, nontender. Bowel sounds active. No rigidity. No rebound or guarding. No CVA tenderness. EXTREMITIES: No clubbing, cyanosis or pedal edema. MUSCULOSKELETAL: No joint swelling. NEUROLOGIC: Awake, alert, oriented times three. No focal deficit. LYMPHATIC: No lymph nodes palpable. SKIN: Intact. Dry. LABS: Sodium 134, potassium 3.6, chloride 93, bicarb 25, BUN 17, creatinine 0.88 and glucose 175. Two sets of cardiac enzymes are negative. WBC 8.59, hgb 8.9, hct 27.7 and plt count 139. ASSESSMENT: 1. COPD exacerbation secondary to the pneumonia left lower lobe 2. 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 Acute on chronic COPD oxygen dependant 4. Hypertension 5. Dyslipidemia 6. Depression 7. Anxiety 8. Osteoarthritis 9. DJD spine PLAN: 1. Continue the Rocephin, Azithromycin and Solu-Medrol 2. Daily I&O's 3. Out of bed to chair activity as tolerated. TIME SPENT: More than 30 minutes MTDD
[2016-05-29 15:47] LABS: COCAIN SCREEN,URINE NEGATIVE (NEGATIVE)
--- NOTE | 2016-05-29 16:12 | DI ---
EXAM: Chest two view, frontal and lateral views. HISTORY: Shortness of breath. Chest congestion. COMPARISON: 05/27/2016. FINDINGS: The heart size is normal. Atherosclerotic calcifications present. There is no pulmonary vascular congestion. There is improved aeration in the left lung with mild interstitial opacities at the left base persisting. Otherwise, the lungs are clear save for calcified granulomatous change s. No pleural effusion or pneumothorax is seen. No acute osseous abnormality identified. IMPRESSION: Improved aeration in the left lung with mild left basilar pneumonitis persisting.
[2016-05-29] MEDS: CRESTOR PO SCH (20:59)
[2016-05-30] MEDS: NORCO 5-325 PO PRN ×3 (03:40→21:24)
[2016-05-30] MEDS: PERFOROMIST NEB SCH ×2 (04:40→21:50)
[2016-05-30] MEDS: DUONEB NEB SCH ×4 (04:40→21:50)
[2016-05-30] MEDS: SOLU-MEDROL 125 MG IVP SCH ×4 (05:14→18:22)
[2016-05-30] MEDS: PLETAL PO SCH ×2 (06:17→16:34)
[2016-05-30] MEDS: PROTONIX PO SCH (06:17)
[2016-05-30 07:57] LABS: BASOPHILS % (AUTO) 0.1 % (0.0-3.0); HEMATOCRIT 32.6 % (37.0-47.0); HEMOGLOBIN 11.1 g/dl (12.0-16.0); IMMATURE GRANULOCYTE % (AUTO) 1.4 % (0.0-5.0); LYMPHOCYTES # (AUTO) 0.9 K/uL (0.60-3.4); LYMPHOCYTES % (AUTO) 8.5 (10.0-50.0); MEAN CORPUSCULAR HEMOGLOBIN 27.3 pg (27.0-31.0); MEAN CORPUSCULAR VOLUME 80.3 fl (81.0-99.0); MONOCYTES # (AUTO) 0.6 K/uL (0.4-2.0); MONOCYTES % (AUTO) 5.1 (0-10); NEUTROPHILS # (AUTO) 9.2 K/ul (2.0-6.9); NEUTROPHILS % (AUTO) 84.9; PLATELET COUNT 174 10^3/uL (140-440); RED BLOOD COUNT 4.06 10^6/ul (4.20-5.40); WHITE BLOOD COUNT 10.81 K/ul (4.6-10.2)
[2016-05-30] MEDS: ASPIRIN CHEWABLE PO SCH (08:14)
[2016-05-30] MEDS: COREG PO SCH ×2 (08:14→16:35)
[2016-05-30] MEDS: MOBIC PO SCH (08:15)
[2016-05-30] MEDS: APRESOLINE PO SCH ×2 (08:16→21:18)
[2016-05-30] MEDS: BUDESONIDE 180 MCG IH SCH ×44 (08:17→20:22)
[2016-05-30] MEDS: CYMBALTA PO SCH (08:18)
[2016-05-30] MEDS: NON-FORMULARY MEDICATION (Cyanocobalamin (Vitamin B-12) [B-12] 500 MCG) PO SCH ×22 (08:18)
[2016-05-30 08:19] LABS: ALBUMIN 3.6 g/dL (3.4-5.0); ALBUMIN/GLOBULIN RATIO 1.24; ANION GAP 14.9; BILIRUBIN,TOTAL 0.67 mg/dL (0.00-1.20); BUN/CREATININE RATIO 18.94; CALCIUM 9.9 mg/dL (8.2-10.2); CREATININE 0.95 mg/dL (0.60-1.30); POTASSIUM 2.9 mmol/L (3.5-5.10); TOTAL PROTEIN 6.5 g/dL (5.8-8.1)
[2016-05-30] MEDS: DALIRESP PO SCH (08:19)
[2016-05-30] MEDS: ZANAFLEX PO SCH ×2 (08:20→21:19)
[2016-05-30] MEDS: VITAMIN D PO SCH (08:21)
[2016-05-30] MEDS: XANAX PO SCH ×2 (08:21→21:19)
[2016-05-30] MEDS: KLOR-CON 8 MEQ PO SCH (08:21)
[2016-05-30] MEDS: DYAZIDE PO SCH (08:22)
[2016-05-30] MEDS: LYRICA PO SCH ×2 (08:22→21:19)
[2016-05-30] MEDS: PLAVIX PO SCH (08:23)
[2016-05-30] MEDS: FERROUS SULFATE PO SCH ×2 (08:23→21:19)
[2016-05-30] MEDS: SPIRIVA IH SCH (08:24)
[2016-05-30] MEDS: NICODERM 21 MG TD SCH (08:24)
[2016-05-30] MEDS: ROCEPHIN 1 GM in SODIUM CHLORIDE 100 ML IV SCH (08:25)
[2016-05-30] MEDS: CRESTOR PO SCH (21:19)
[2016-05-31] MEDS: SOLU-MEDROL 125 MG IVP SCH ×4 (01:22→17:18)
[2016-05-31] MEDS: DUONEB NEB SCH ×4 (05:08→21:20)
[2016-05-31] MEDS: PERFOROMIST NEB SCH ×2 (05:08→21:20)
[2016-05-31] MEDS: PLETAL PO SCH ×2 (05:35→16:55)
[2016-05-31] MEDS: PROTONIX PO SCH (05:36)
[2016-05-31] MEDS: NORCO 5-325 PO PRN ×2 (06:42→17:52)
[2016-05-31 07:49] LABS: HEMATOCRIT 30.3 % (37.0-47.0); HEMOGLOBIN 10.4 g/dl (12.0-16.0); IMMATURE GRANULOCYTE % (AUTO) 1.4 % (0.0-5.0); LYMPHOCYTES # (AUTO) 0.7 K/uL (0.60-3.4); LYMPHOCYTES % (AUTO) 7.8 (10.0-50.0); MEAN CORPUSCULAR HEMOGLOBIN 27.4 pg (27.0-31.0); MEAN CORPUSCULAR HGB CONC 34.3 (31.8-35.4); MEAN CORPUSCULAR VOLUME 79.7 fl (81.0-99.0); MONOCYTES # (AUTO) 0.4 K/uL (0.4-2.0); MONOCYTES % (AUTO) 4.9 (0-10); NEUTROPHILS # (AUTO) 7.5 K/ul (2.0-6.9); NEUTROPHILS % (AUTO) 85.9; PLATELET COUNT 166 10^3/uL (140-440); WHITE BLOOD COUNT 8.69 K/ul (4.6-10.2)
[2016-05-31 08:30] LABS: ALBUMIN 3.3 g/dL (3.4-5.0); ALBUMIN/GLOBULIN RATIO 1.32; ANION GAP 13.7; BILIRUBIN,TOTAL 0.62 mg/dL (0.00-1.20); BUN/CREATININE RATIO 19.46; CALCIUM 9.3 mg/dL (8.2-10.2); CREATININE 1.13 mg/dL (0.60-1.30); TOTAL PROTEIN 5.8 g/dL (5.8-8.1)
[2016-05-31 08:47] LABS: POTASSIUM 2.7 mmol/L (3.5-5.10)
[2016-05-31] MEDS: FERROUS SULFATE PO SCH ×2 (09:41→20:37)
[2016-05-31] MEDS: ROCEPHIN 1 GM in SODIUM CHLORIDE 100 ML IV SCH (09:41)
[2016-05-31] MEDS: PLAVIX PO SCH (09:41)
[2016-05-31] MEDS: ZANAFLEX PO SCH ×2 (09:42→20:37)
[2016-05-31] MEDS: COREG PO SCH ×2 (09:42→16:55)
[2016-05-31] MEDS: CYMBALTA PO SCH (09:42)
[2016-05-31] MEDS: VITAMIN D PO SCH (09:42)
[2016-05-31] MEDS: KLOR-CON 8 MEQ PO SCH (09:43)
[2016-05-31] MEDS: DYAZIDE PO SCH (09:43)
[2016-05-31] MEDS: LYRICA PO SCH ×2 (09:43→20:37)
[2016-05-31] MEDS: ASPIRIN CHEWABLE PO SCH (09:43)
[2016-05-31] MEDS: DALIRESP PO SCH (09:44)
[2016-05-31] MEDS: SPIRIVA IH SCH (09:45)
[2016-05-31] MEDS: NICODERM 21 MG TD SCH (09:45)
[2016-05-31] MEDS: NON-FORMULARY MEDICATION (Cyanocobalamin (Vitamin B-12) [B-12] 500 MCG) PO SCH ×22 (10:06)
[2016-05-31] MEDS: MOBIC PO SCH (10:11)
[2016-05-31] MEDS: XANAX PO SCH ×2 (10:12→20:37)
[2016-05-31] MEDS: APRESOLINE PO SCH ×2 (10:12→20:38)
[2016-05-31] MEDS: BUDESONIDE 180 MCG IH SCH ×44 (10:18→20:36)
[2016-05-31] MEDS ORDERED: POTASSIUM CHLORIDE PREMIX RUN 20 MEQ in PREMIX 100 ML WATER 1 BAG IV STA (10:39)
[2016-05-31] MEDS ORDERED: K-DUR PO STA (10:39)
[2016-05-31] MEDS ORDERED: POTASSIUM CHLORIDE PREMIX RUN 100 ML IV ONE (10:47)
[2016-05-31] MEDS: CRESTOR PO SCH (20:36)
[2016-06-01] MEDS: SOLU-MEDROL 125 MG IVP SCH ×3 (00:11→12:55)
[2016-06-01 04:44] LABS: BASOPHILS % (AUTO) 0.1 % (0.0-3.0); HEMOGLOBIN 9.8 g/dl (12.0-16.0); LYMPHOCYTES # (AUTO) 0.7 K/uL (0.60-3.4); LYMPHOCYTES % (AUTO) 7.7 (10.0-50.0); MEAN CORPUSCULAR HGB CONC 33.8 (31.8-35.4); MEAN CORPUSCULAR VOLUME 79.9 fl (81.0-99.0); MONOCYTES # (AUTO) 0.5 K/uL (0.4-2.0); MONOCYTES % (AUTO) 5.4 (0-10); NEUTROPHILS # (AUTO) 7.4 K/ul (2.0-6.9); NEUTROPHILS % (AUTO) 85.8; PLATELET COUNT 134 10^3/uL (140-440); RED BLOOD COUNT 3.63 10^6/ul (4.20-5.40); WHITE BLOOD COUNT 8.59 K/ul (4.6-10.2)
[2016-06-01 05:09] LABS: ALBUMIN 3.1 g/dL (3.4-5.0); ALBUMIN/GLOBULIN RATIO 1.41; BILIRUBIN,TOTAL 0.44 mg/dL (0.00-1.20); BUN/CREATININE RATIO 25.71; CREATININE 1.05 mg/dL (0.60-1.30); TOTAL PROTEIN 5.3 g/dL (5.8-8.1)
[2016-06-01] MEDS: PERFOROMIST NEB SCH (05:21)
[2016-06-01] MEDS: DUONEB NEB SCH ×3 (05:21→13:51)
[2016-06-01] MEDS: PLETAL PO SCH (05:42)
[2016-06-01] MEDS: PROTONIX PO SCH (05:43)
[2016-06-01] MEDS: NORCO 5-325 PO PRN (05:43)
[2016-06-01] MEDS: ASPIRIN CHEWABLE PO SCH (08:36)
[2016-06-01] MEDS: DALIRESP PO SCH (08:37)
[2016-06-01] MEDS: MOBIC PO SCH (08:37)
[2016-06-01] MEDS: LYRICA PO SCH (08:37)
[2016-06-01] MEDS: CYMBALTA PO SCH (08:37)
[2016-06-01] MEDS: COREG PO SCH (08:38)
[2016-06-01] MEDS: DYAZIDE PO SCH (08:38)
[2016-06-01] MEDS: PLAVIX PO SCH (08:38)
[2016-06-01] MEDS: VITAMIN D PO SCH (08:38)
[2016-06-01] MEDS: APRESOLINE PO SCH (08:38)
[2016-06-01] MEDS: FERROUS SULFATE PO SCH (08:38)
[2016-06-01] MEDS: NICODERM 21 MG TD SCH (08:38)
[2016-06-01] MEDS: KLOR-CON 8 MEQ PO SCH (08:38)
[2016-06-01] MEDS: XANAX PO SCH (08:38)
[2016-06-01] MEDS: ZANAFLEX PO SCH (08:38)
[2016-06-01] MEDS: ROCEPHIN 1 GM in SODIUM CHLORIDE 100 ML IV SCH (08:39)
[2016-06-01] MEDS: BUDESONIDE 180 MCG IH SCH ×22 (08:47)
[2016-06-01] MEDS: NON-FORMULARY MEDICATION (Cyanocobalamin (Vitamin B-12) [B-12] 500 MCG) PO SCH ×22 (08:47)
[2016-06-01] MEDS: SPIRIVA IH SCH (08:48)
[2016-06-01 09:52] VITALS: BP 174/77; TEMP 98
--- NOTE | 2016-06-01 14:53 | PN ---
DATE OF SERVICE: 05/31/16 SUBJECTIVE: The patient's potassium is 2.7 for which the patient is getting the IV potassium. She complains of the pain otherwise the coughing and shortness of breath is a lot better. REVIEW OF SYSTEMS: CONSTITUTIONAL: No fever, no chills. HEENT: Normal. ENDOCRINE: No weight gain, no weight loss. CVS: No angina symptoms. No CHF symptoms. No palpitations. No atypical chest pain for CAD. No shortness of breath. No PND, no orthopnea. RESPIRATORY: No cough, no hemoptysis. GI: No nausea, no vomiting. No abdominal pain. : No hematuria. No polyuria. MUSCULOSKELETAL:. No joint swelling. PSYCHIATRIC: Not anxious. No depression. No suicidal thoughts. No homicidal thoughts. SKIN: Intact. No rash. PHYSICAL EXAMINATION: V/S: Blood pressure 185/90, respiratory 20, heart rate 90 and temperature 98.2. HEENT: Normocephalic, atraumatic. Ears, eyes, nose and throat normal. Mucosa dry. Pallor positive. No icterus. NECK: Supple. No JVD, no carotid bruit. No lymphadenopathy. LUNGS: Decreased and clear to auscultation. No rales or rhonchi. HEART: S1, S2 normal. No S3. No murmur, gallop or regurgitation. ABDOMEN: Soft, nontender. Bowel sounds active. No rigidity. No rebound or guarding. No CVA tenderness. EXTREMITIES: No clubbing, cyanosis or pedal edema. MUSCULOSKELETAL: No joint swelling. NEUROLOGIC: Awake, alert, oriented times three. No focal deficit. LYMPHATIC: No lymph nodes palpable. SKIN: Intact. LABS: WBC 8.69, hgb 10.4, hct 30.3, plt count 166, sodium 129, potassium 2.7, chloride 83, bicarb 35, BUN 22 and creatinine 1.13. ASSESSMENT: 1. Left sided community acquired pneumonia which is better per the X-ray 2. Hypokalemia 3. Hypertension 4. Dyslipidemia 5. Osteoarthritis 6. DJD spine 7. Chronic pain syndrome 8. Peripheral arterial disease PLAN: 1. 20 IV potassium and 60 PO potassium. 2. Will recheck potassium by 2:00pm. 3. Continue the Rocephin 4. Out of bed to chair 5. Lovenox for the DVT prophylaxis 6. Discussed the care and plan with the patient's also who is in the room. TIME SPENT: More than 30 minutes KEVIN
--- NOTE | 2016-06-01 14:55 | PCM.PROG ---
Attending Provider: ATTENDING PROVIDER: Dr. NIKKI ANG DATE OF SERVICE: 06/01/16 SUBJECTIVE: This 71 year old WHITE/ F was hospitalized 05/27/16. The patient is lying in bed, not in any distress. Cough has improved. Shortness of breath has resolved. The patient's is in the room. A long discussion with the patient about pain medication and side effects. REVIEW OF SYSTEMS: CONSTITUTIONAL: No fever, no chills. ENDOCRINE: No weight loss or weight gain. HEENT: No sinus drainage, no sore throat. CVS: No angina symptoms. No CHF symptoms. No palpitations. No atypical chest pain for CAD. Shortness of breath. RESPIRATORY: No cough, no hemoptysis. GI: No melena. No abdominal pain. No nausea, no vomiting. : No hematuria. No polyuria. SKIN: No rash. No wounds. MUSCULOSKELETAL: No pain. JUVENILE DETENTION OFFICER: No blackout, no dizziness. No headache. No double vision. PSYCHIATRIC: Not anxious; no depression. No suicidal thoughts. No homicidal thoughts. PHYSICAL EXAMINATION: GENERAL: Lying in bed in no distress. VITAL SIGNS: Temperature 98 F, Pulse 105, Respiratory Rate 20, BP 174/77, Pulse Ox 97% HEENT: Normocephalic, atraumatic. Mucosa is dry, pallor positive. NECK: No JVP, no carotid bruit. No lymphadenopathy. CARDIAC: S1, S2, no S3. No murmur, gallop or regurgitation. LUNGS: Decreased entry. Clear to auscultation. ABDOMEN: Soft, non-tender. Bowel sounds active. No rigidity, guarding or CVA tenderness. EXTREMITIES: No clubbing, cyanosis or edema. NEUROLOGIC: Awake, alert and oriented x3. LYMPHATIC: No palpable lymph nodes SKIN: Not dry. Intact. MUSCULOSKELETAL: No joint swelling. LAB REVIEW: 06/01/16 04:43 06/01/16 04:43 06/01/16 04:43: WBC 8.59, RBC 3.63 L, Hgb 9.8 L, Hct 29.0 L, MCV 79.9 L, MCH 27.0, MCHC 33.8, RDW Coeff of Tr 14.2, Plt Count 134 L, Immature Gran % (Auto) 1.0, Neut % (Auto) 85.8, Lymph % (Auto) 7.7 L, [place] % (Auto) 5.4, Eos % (Auto) 0.0, Baso % (Auto) 0.1, Immature Gran # (Auto) 0.1, Neut # 7.4 H, Lymph # 0.7, [place] # 0.5, Eos # 0.0, Baso # 0.0, Sodium 128 L, Potassium 4.0, Chloride 86 L, Carbon Dioxide 35 H, Anion Gap 11.0, BUN 27 H, Creatinine 1.05, Estimated GFR ( MDRD) 52.00, BUN/Creatinine Ratio 25.71, Glucose 162 H, Calcium 9.0, Total Bilirubin 0.44, AST 20, ALT 24, Alkaline Phosphatase 42 L, Total Protein 5.3 L, Albumin 3.1 L, Globulin 2.2, Albumin/Globulin Ratio 1.41 05/31/16 14:05: Potassium 4.0 ASSESSMENT: 1. COPD EXACERBATION SECONDARY TO PNEUMONIA LEFT LOWER LOBE 2. C02 NARCOSIS, WHICH IS BETTER 3. ACUTE ON CHRONIC COPD OXYGEN DEPENDENT 4. PERIPHERAL ARTERIAL DISEASE 5. HYPERTENSION 6. DYSLIPIDEMIA 7. DEPRESSION/ANXIETY 8. OSTEOARTHRITIS 9. DJD SPINE PLAN: 1. Will refer to Dr. Murray 2. Sutton 7.5 mg t.i.d. p.r.n. 3. Xanax 0.25 mg b.i.d. 4. Stop Benadryl. 5. Medrol Dosepak. 6. Keflex 500 mg b.i.d. 7. Discharge home. 7.5 mg Sutton t.i.d. prn Plan and coordination of the patient's care discussed in the presence of Bait Packer and nurse. CONDITION: STABLE SCRIBED BY: KENISHA FRY Sales Order Processor scribed while in presence of service performed by Dr. NIKKI ANG on 06/01/16 ([id number])
--- NOTE | 2016-06-01 15:04 | PN ---
DATE OF SERVICE: 05/30/16 SUBJECTIVE: The patient was admitted with the COPD exacerbation and bronchitis. The patient did have a change in the mental status secondary mostly likely to the medication overdose. As of today the patient is more awake and alert still complains about the pain all of the body. REVIEW OF SYSTEMS: CONSTITUTIONAL: No fever, no chills. HEENT: Normal. ENDOCRINE: No weight gain, no weight loss. CVS: No angina symptoms. No CHF symptoms. No palpitations. No atypical chest pain for CAD. No shortness of breath. No PND, no orthopnea. RESPIRATORY: No cough, no hemoptysis. GI: No nausea, no vomiting. No abdominal pain. : No hematuria. No polyuria. MUSCULOSKELETAL:. No joint swelling. PSYCHIATRIC: Not anxious. No depression. No suicidal thoughts. No homicidal thoughts. SKIN: Intact. No rash. PHYSICAL EXAMINATION: V/S: Blood pressure 191/55, respiratory 20, heart rate 91 and temperature 96.9. HEENT: Normocephalic, atraumatic. Ears, eyes, nose and throat normal. Mucosa dry. NECK: Supple. No JVD, no carotid bruit. No lymphadenopathy. LUNGS: Decreased and basilar crackles and some wheezing. No rales or rhonchi. HEART: S1, S2 normal. No S3. No murmur, gallop or regurgitation. ABDOMEN: Soft, nontender. Bowel sounds active. No rigidity. No rebound or guarding. No CVA tenderness. EXTREMITIES: No clubbing, cyanosis or pedal edema. MUSCULOSKELETAL: No joint swelling. NEUROLOGIC: Awake, alert, oriented times three. No focal deficit. LYMPHATIC: No lymph nodes palpable. SKIN: Intact. LABS: Sodium 134, potassium 2.9, chloride 85, bicarb 37, BUN 18, creatinine 0.95, WBC 10.81, hgb 11.1, hct 32.6 and plt count 174. ASSESSMENT: 1. Community acquired pneumonia, left lower lobe 2. COPD exacerbation secondary to the pneumonia 3. Hypokalemia 4. Status post change in mental status secondary to the polypharmacy 5. Osteoarthritis 6. DJD spine 7. Peripheral arterial disease PLAN: 1. Continue the Rocephin 2. DUO NEBS 3. Solu-Medrol 4. IV fluids Will follow the patient in daily rounds. TIME SPENT: More than 30 minutes MTDD
--- NOTE | 2016-06-01 15:33 | CM.DICTOOL ---
ADMISSION: 05/27/16 09:19 DISCHARGE: 06/01/16 DATE OF SERVICE: 06/01/16 FINAL DIAGNOSIS PNEUMONIA HYPOXIA COPD SEVERE PAD WITH CLAUDICATION AORTOILLIAC BYPASS FEMORAL-POPLITEAL BYPASS AND STENT APPLICATION, 10/28 HIGH GRADE AORTIC STENOSIS BELOW INFRARENAL ARTERIES - ANGIOGRAM BY DR. 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 NO MASS EFFECT (MRI BRAIN 05/17/15) OSTEOARTHRITIS DJD OF THE SPINE GENERALIZED ANXIETY DISORDER/DEPRESSION HYSTERECTOMY C-SPINE SURGERY LAST VITALS Temp Pulse Resp BP Pulse Ox 98 F 105 H 20 174/77 H 95 06/01/16 09:52 06/01/16 09:52 06/01/16 09:52 06/01/16 09:52 06/01/16 13:50 ACTIVE MEDICATIONS Acetaminophen/Hydrocodone Bitart ([place] 10-325) 1 tab PO Q8H PRN PRN Reason: Analgesia Last Admin: 06/01/16 05:43 Dose: 1 tab Albuterol/Ipratropium (Duoneb) 1 vial NEB RTTID PRN Last Admin: 06/01/16 13:51 Dose: 1 vial Alprazolam (Xanax) 0.25 mg PO BID [facility] Last Admin: 06/01/16 08:38 Dose: 0.25 mg Last Admin: 05/27/16 20:26 Dose: 0.5 mg Aspirin (Aspirin Chewable) 81 mg PO DAILYWM [facility] Last Admin: 06/01/16 08:36 Dose: 81 mg Carvedilol (Coreg) 25 mg PO BIDWM [facility] Last Admin: 06/01/16 08:38 Dose: 25 mg Cholecalciferol (Vitamin D) 400 unit PO DAILY [facility] Last Admin: 06/01/16 08:38 Dose: 400 unit Cilostazol (Pletal) 100 mg PO BIDAC [facility] Last Admin: 06/01/16 05:42 Dose: 100 mg Clopidogrel Bisulfate (Plavix) 75 mg PO DAILY [facility] Last Admin: 06/01/16 08:38 Dose: 75 mg Duloxetine HCl (Cymbalta) 60 mg PO DAILY [facility] Last Admin: 06/01/16 08:37 Dose: 60 mg Ferrous Sulfate (Ferrous Sulfate) 324 mg PO BID [facility] Last Admin: 06/01/16 08:38 Dose: 324 mg Formoterol Fumarate (Perforomist) 1 mcg NEB RTBID [facility] Last Admin: 06/01/16 05:21 Dose: 20 mcg Hydralazine HCl (Apresoline) 100 mg PO BID [facility] Last Admin: 06/01/16 08:38 Dose: 100 mg Meloxicam (Mobic) 15 mg PO DAILYWM [facility] Last Admin: 06/01/16 08:37 Dose: 15 mg Non-Formulary Medication (Cyanocobalamin (Vitamin B-12) [B-12]) 500 mcg PO DAILY [facility] Last Admin: 06/01/16 08:47 Dose: Not Given Non-Formulary Medication (Budesonide [Pulmicort Flexhaler]) 180 mcg IH BID [facility] Last Admin: 06/01/16 08:47 Dose: Not Given Pantoprazole Sodium (Protonix) 40 mg PO QDAC [facility] Last Admin: 06/01/16 05:43 Dose: 40 mg Potassium Chloride (Klor-Con 8 Meq) 8 meq PO DAILY [facility] Last Admin: 06/01/16 08:38 Dose: 8 meq Pregabalin (Lyrica) 50 mg PO BID [facility] Last Admin: 06/01/16 08:37 Dose: 50 mg Roflumilast (Daliresp) 500 mcg PO DAILY [facility] Last Admin: 06/01/16 08:37 Dose: 500 mcg Rosuvastatin Calcium (Crestor) 20 mg PO BEDTIME [facility] Last Admin: 05/31/16 20:36 Dose: 20 mg Tiotropium Astatula (Spiriva) 1 cap IH DAILY [facility] Last Admin: 06/01/16 08:48 Dose: 1 cap Tizanidine HCl (Zanaflex) 4 mg PO BID [facility] Last Admin: 06/01/16 08:38 Dose: 4 mg Triamterene/HCTZ (Dyazide) 1 cap PO DAILY [facility] Last Admin: 06/01/16 08:38 Dose: 1 cap DENOTES MEDICATION CHANGES MADE DURING THIS STAY THAT WILL BE CONTINUED AT DISCHARGE ALLERGIES No Known Allergies Allergy (Verified 05/27/16 07:15) NEW PRESCRIPTIONS: RESUME YOUR HOME MEDICATIONS PER LIST PROVIDED BY THE NURSING STAFF WEAR YOUR HOME OXYGEN AT 2.5L/NC REDUCE YOUR LYRICA TO 50 MG, TAKE ONE TABLET BY MOUTH TWICE DAILY TAKE YOUR DUONEBS THREE TIMES DAILY NEEDED DO NOT TAKE YOUR BENADRYL DO NOT TAKE YOUR XANAX 0.5 MG PO HS NEW PRESCRIPTIONS: MEDROL DOSE SAUL, TAKE DIRECTED WITH FOOD KEFLEX 500 MG, TAKE ONE CAPSULE BY MOUTH TWICE DAILY FOR 5 (FIVE) DAYS SMOKING: SMOKING CESSATION WAS DISCUSSED AT LENGTH DAILY DURING THIS STAY. THE PATIENT ACKNOWLEDGES THE NEED TO STOP. HOWEVER, SHE DOES NOT VERBALIZE ANY INTENTIONS FOR CESSATION. DISEASE SPECIFIC EDUCATION: PNEUMONIA COPD HOME MEDICATIONS NEW PRESCRIPTIONS FOLLOW UP WITH DR. PLATA, PAIN MANAGEMENT FOLLOW UP THROUGH THE OFFICE OXYGEN NEBULIZERS LAB REVIEW: 06/01/16 04:43 06/01/16 04:43 06/01/16 04:43: WBC 8.59, RBC 3.63 L, Hgb 9.8 L, Hct 29.0 L, MCV 79.9 L, MCH 27.0, MCHC 33.8, RDW Coeff of Tr 14.2, Plt Count 134 L, Immature Gran % (Auto) 1.0, Neut % (Auto) 85.8, Lymph % (Auto) 7.7 L, [place] % (Auto) 5.4, Eos % (Auto) 0.0, Baso % (Auto) 0.1, Immature Gran # (Auto) 0.1, Neut # 7.4 H, Lymph # 0.7, [place] # 0.5, Eos # 0.0, Baso # 0.0, Sodium 128 L, Potassium 4.0, Chloride 86 L, Carbon Dioxide 35 H, Anion Gap 11.0, BUN 27 H, Creatinine 1.05, Estimated GFR ( MDRD) 52.00, BUN/Creatinine Ratio 25.71, Glucose 162 H, Calcium 9.0, Total Bilirubin 0.44, AST 20, ALT 24, Alkaline Phosphatase 42 L, Total Protein 5.3 L, Albumin 3.1 L, Globulin 2.2, Albumin/Globulin Ratio 1.41 PLAN: DISCHARGE HOME TODAY RETURN TO SEE DR. ANG/DR. BRITO IN 5-7 DAYS. PLEASE CALL TO SCHEDULE YOUR APPOINTMENT [phone] KEEP YOUR SCHEDULED APPOINTMENT WITH: DR. BERRIOS [id number] [phone] TAKE A LIST OF YOUR CURRENT MEDICATIONS TO YOUR APPOINTMENT WITH DR. BERRIOS RESUME YOUR HOME MEDICATIONS PER LIST PROVIDED BY THE NURSING STAFF WEAR YOUR HOME OXYGEN AT 2.5L/NC REDUCE YOUR LYRICA TO 50 MG, TAKE ONE TABLET BY MOUTH TWICE DAILY TAKE YOUR DUONEBS THREE TIMES DAILY NEEDED DO NOT TAKE YOUR BENADRYL DO NOT TAKE YOUR XANAX 0.5 MG PO AT HS NEW PRESCRIPTIONS: MEDROL DOSE SAUL, TAKE DIRECTED WITH FOOD KEFLEX 500 MG, TAKE ONE CAPSULE BY MOUTH TWICE DAILY FOR 5 (FIVE) DAYS DIET: HEALTHY HEART STAY WELL HYDRATED ACTIVITY: GET PLENTY OF REST AT HOME. INCREASE YOUR ACTIVITY LEVEL ACCORDING TO YOUR TOLERATION SUMMARY: THE PATIENT IS ALERT AND ORIENTED X3. SHE CURRENTLY RESIDES AT HOME WITH HER SPOUSE. SHE HAS EXISTING OXYGEN AND NEBULIZER FOR USE AT HOME. SHE HAS NO HOME HEALTH OR HOMEMAKING SERVICES. SHE IS NOT HOME BOUND TO QUALIFY FOR HOME HEALTH SERVICES. SHE DESIRES TO RETURN HOME AT DISCHARGE. HER SKIN TURGOR IS INTACT. SHE HAS MULTIPLE BRUISED AREAS ON HER ARMS FROM THIS HOSPITALIZATION. SHE HAS NO DECUBITUS ULCERS AT DISCHARGE. SHE IS AWARE AND AGREEABLE FOR DISCHARGE TODAY. NIKKI ANG M.D.
--- NOTE | 2016-06-04 14:47 | DS ---
DATE OF SERVICE: 06/01/16 FINAL DIAGNOSIS: 1. Pneumonia, community acquired 2. COPD exacerbation secondary to the pneumonia 3. Status post change in mental status secondary to the pain medication and the polypharmacy 4. Severe peripheral arterial disease with claudication 5. Aortoiliac bypass 6. Femoral-Popliteal bypass 7. High grade aortic stenosis, infrarenal arteries 8. Carotid occlusive disease 9. 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 DJD spine 18. Generalized anxiety disorder 19. Hysterectomy 20. C-spine surgery. VITALS AT DISCHARGE: Blood pressure 160/77, respiratory rate 20, pulse 105, temperature 98 and pulse ox 95% on room air. DISCHARGE INSTRUCTIONS: Resume home medication per list provided by the nursing staff. Wear home oxygen at 2.5liters. Resume Lyrica to 50mg take one tablet by mouth twice a day. Take DUO NEBS three times a day. Do not take Benadryl or Xanax 0.5mg. Decrease the Hydrocodone's to half a tablet 10mg half tablet twice a day to three times a day PRN. MEDICATIONS AT DISCHARGE: Hydrocodone DUO NEB Xanax Aspirin Coreg Vitamin Pletal Plavix Cymbalta Ferrous Sulfate Perforomist Apresoline Mobic Cyanocobalamin Pulmicort Protonix Potassium Lyrica Daliresp Crestor Spiriva Zanaflex Dyazide NEW PRESCRIPTIONS: Medrol Dosepak take as directed Keflex 500mg, twice a day for five days. DIET INSTRUCTIONS: Healthy heart Stay well hydrated ACTIVITY: Get plenty of rest at home. Increase activity level according to toleration. SMOKING: Strictly advised to quit smoking. DISEASE SPECIFIC EDUCATION: Risk of lung cancer and worsening lung functioning been discussed. Polypharmacy and medication side effects Fall risks been discussed and verbalized understanding. HOSPITAL COURSE: Shannon Hernandez who is a 71 year old female with multiple medical problems came to the emergency room with worsening of the cough, congestion and shortness of breath. She was seen by Dr. Soren Luque. She was found to have left lower lobe pneumonia, WBC 12.89, D-dimer is negative, ABG showed the pH 7.304, pCO2 74.7, pO2 61, BUN and creatinine was normal, BNP was 1147. The patient was admitted to the hospital and started on the Rocephin and Azithromycin, DUO NEBS and Solu- Medrol. The patient was feeling fine for one day and then the next day the patient was totally unresponsive. We thought the patient was CO2 Narcosis and ABG were repeated. At that time the ABG showed the pCO2 was 48.5, the initial pCO2 was 70.[address] was [address] actually[address] CT of the head was done to rule out stroke and there was no stroke. At that time decided the change in mental status was mostly from the polypharmacy. So her pain medication and Xanax been discontinued and after two days they were started at the half doses. The patient was feeling fine and more awake and alert but she was tearful complaining about the pain. Explained about the importance of being awake at this given time and we don't want any unfortunate event at the hospitalized and she verbalized understanding. The patient's was there and he was very upset because of the patient's condition. He did mention that patient had similar episodes at home because of the pain medications and the Xanax but she never wanted us to know in the office. We had really spent quite a bit of time discussing patient about what is a dose for the pain medication and where she can be more awake and alert and we made a followup with the Dr. Case so that she can go and have reevaluated by Dr. Case and pain medication and pain being managed by him which was discussed with the patient and the patient's family in detail and verbalized understanding. TIME SPENT: More than 45 minutes today. KEVIN
--- NOTE | 2016-09-30 13:21 | PN ---
DATE OF SERVICE: 05/29/2016 SUBJECTIVE: The patient was admitted with COPD exacerbation and pneumonia. She is still hypoxic and easily short of breath. The patient had some confusion spells. The patient has been off of the pain medication, so she has been tearful and upset, but she is more awake and alert right now. REVIEW OF SYSTEMS: CONSTITUTIONAL: No fever, no chills. HEENT: Normal. ENDOCRINE: No weight gain, no weight loss. CVS: No angina symptoms. No CHF symptoms. No palpitations. No atypical chest pain for CAD. Shortness of breath. No PND, no orthopnea. RESPIRATORY: No cough, no hemoptysis. GI: No nausea, no vomiting. No abdominal pain. : No hematuria. No polyuria. MUSCULOSKELETAL:. No joint swelling. PSYCHIATRIC: Tearful. Not anxious. No depression. No suicidal thoughts. No homicidal thoughts. SKIN: Intact. No rash. PHYSICAL EXAMINATION: V/S: Blood pressure 110/50, respiratory rate 18, heart rate 88, temperature 99, saturation is 97. HEENT: Normocephalic, atraumatic. Mucosa dry. Pallor positive. No icterus. NECK: Supple. No JVD, no carotid bruit. No lymphadenopathy. LUNGS: Decreased and some basilar crackles. No rales or rhonchi. HEART: S1, S2 normal. No S3. No murmur, gallop or regurgitation. ABDOMEN: Soft, nontender. Bowel sounds active. No rigidity. No rebound or guarding. No CVA tenderness. EXTREMITIES: No clubbing, cyanosis or pedal edema. MUSCULOSKELETAL: No joint swelling. NEUROLOGIC: Awake, alert, oriented times three. No focal deficit. LYMPHATIC: No lymph nodes palpable. SKIN: Intact. LABS: White count is 11.3, hemoglobin 9.5, hematocrit 28.1, platelet count 163 , sodium 132, potassium 3.1, chloride 18 and bicarb 36, BUN 20, creatinine 0.98 , glucose 153. ASSESSMENT: 1. COPD EXACERBATION SECONDARY TO COMMUNITY ACQUIRED PNEUMONIA 2. HYPOXEMIA 3. CORONARY ARTERY DISEASE 4. PERIPHERAL ARTERIAL DISEASE WITH CLAUDICATION 5. AORTOILIAC BYPASS 6. FEMORAL POPLITEAL BYPASS 7. HIGH GRAD AORTIC STENOSIS, INFRARENAL ARTERIES 8. HYPERTENSION 9. DYSLIPIDEMIA 10. DIVERTICULOSIS 11. METABOLIN SYNDROME 12. FATTY LIVER 13. ANEMIA 14. BRAIN MENINGIOMA 15. 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 HYSTERECTOMY PLAN: 1. Continue the Rocephin, Zithromycin, DuoNeb, Xopenex, Solu-Medrol. 2. Daily I & O's. 3. Will follow up with the patient in daily rounds. TIME SPENT: More than 30 minutes MTDD
== END 2016-06-01 15:47 | disposition home or self-care (01) | DRG 194 ==
LOC: ED 07:02 → MEDSURG B 09:19
PROVIDERS: ADMIT Emergency Medicine; ATTEND Emergency Medicine
DX: J18.9 Pneumonia, unspecified organism (principal); J44.1 Chronic obstructive pulmonary disease with (acute) exacerbation; R06.89 Other abnormalities of breathing; G89.4 Chronic pain syndrome; F41.1 Generalized anxiety disorder; R41.82 Altered mental status, unspecified; E87.6 Hypokalemia; T39.1X1A Poisoning by 4-Aminophenol derivatives, accidental (unintentional), initial encounter; I10 Essential (primary) hypertension; I73.9 Peripheral vascular disease, unspecified; I65.29 Occlusion and stenosis of unspecified carotid artery; I35.0 Nonrheumatic aortic (valve) stenosis; I70.1 Atherosclerosis of renal artery; E78.5 Hyperlipidemia, unspecified; D64.9 Anemia, unspecified; D32.0 Benign neoplasm of cerebral meninges; M19.90 Unspecified osteoarthritis, unspecified site; M47.9 Spondylosis, unspecified; Y92.230 Patient room in hospital as the place of occurrence of the external cause; F17.210 Nicotine dependence, cigarettes, uncomplicated; Z79.01 Long term (current) use of anticoagulants; Z79.899 Other long term (current) drug therapy; Z99.81 Dependence on supplemental oxygen
CPT/HCPCS: 36415; 80053; 80306; 81001; 82550; 82803; 83605; 83880; 84132; 84145; 84484; 85025; 85379; 87040; 93005; 93010; 94640; 96365; 99284

== ENCOUNTER 2016-06-17 09:41 | Outpatient (RCR) ==
[2016-07-14 13:20] VITALS: BP 136/52
== END 2016-07-17 ==
LOC: PUL.REHAB 09:41
PROVIDERS: ATTEND Internal Medicine
DX: J44.9 Chronic obstructive pulmonary disease, unspecified (principal)

== ENCOUNTER 2016-07-18 07:00 | Outpatient (RCR) ==
[2016-07-30 13:25] VITALS: BP 150/62
== END 2016-08-16 ==
LOC: PUL.REHAB 07:00
PROVIDERS: ATTEND Internal Medicine
DX: J44.9 Chronic obstructive pulmonary disease, unspecified (principal)

== ENCOUNTER 2016-08-17 09:42 | Outpatient (RCR) ==
[2016-09-03 13:34] VITALS: BP 138/62
== END 2016-09-16 ==
LOC: PUL.REHAB 09:42
PROVIDERS: ATTEND Internal Medicine
DX: J44.9 Chronic obstructive pulmonary disease, unspecified (principal)

== ENCOUNTER 2016-09-10 14:32 | Emergency (ER) ==
--- NOTE | 2016-09-10 14:45 | ED.PDOC ---
General ED Provider: Dr. MAREN CHERY Chief Complaint: Respiratory Complaint Stated Complaint: Nausea; vomiting Time Seen by Physician: 14:30 Mode of Arrival: Wheelchair Information Source: Patient, Family Exam Limitations: No limitations Primary Care Provider: SIDDHARTHA BRITO Nursing and Triage Documentation Reviewed and Agree: Yes Review of Systems - Review Of Systems Constitutional: Reports: No symptoms GI: Reports: Nausea (yesterday), Vomiting (today). Denies: Constipated, Diarrhea Skin: Reports: No symptoms All Other Systems: Reviewed and Negative Past Medical History - Past Medical History Previously Healthy: Yes Endocrine: Reports: Dyslipidemia Cardiovascular: Reports: Hypertension Respiratory: Reports: COPD Hematological: Reports: None Gastrointestinal: Reports: None Genitourinary: Reports: None Neuro/Psych: Reports: Anxiety, Depression Musculoskeletal: Reports: None Cancer: Reports: None - Surgical History General Surgical History: Reports: Unknown - Family History Family History: Reports: Unknown - Social History Smoking Status: Current every day smoker, Heavy tobacco smoker Hx Substance Use: No Alcohol Screening: Occasionally Physical Exam - Physical Exam Appearance: Well-appearing Eyes: ARIEL, EOMI ENT: Ears normal, Nose normal, Oropharynx normal Neck: Supple Respiratory: Airway patent, Breath sounds clear, Breath sounds equal, Respirations nonlabored Cardiovascular: RRR, Pulses normal GI/: Soft, Nontender Musculoskeletal: Normal strength, ROM intact, No edema Skin: Warm, Dry, Normal color Neurological: Sensation intact, Motor intact, Reflexes intact, Alert, Oriented Psychiatric: Affect appropriate, Mood appropriate Re-Evaluation - Re-Evaluation Time of Re-Evaluation: 15:40 Status: Improved (NAD) Vital Signs Stable: Yes Appearance: NAD Critical Care Note - Critical Care Note Total Time (mins): 25 Course - Course Hematology/Chemistry: 09/10/16 15:02 09/10/16 15:02 Orders, Labs, Meds: Lab Review 09/10/16 15:02 WBC 8.34 RBC 4.09 L Hgb 11.0 L Hct 33.1 L MCV 80.9 L MCH 26.9 L MCHC 33.2 RDW Coeff of Tr 15.1 H Plt Count 180 Immature Gran % (Auto) 0.5 Neut % (Auto) 78.9 Lymph % (Auto) 15.3 [place] % (Auto) 5.2 Eos % (Auto) 0.1 Baso % (Auto) 0.0 Immature Gran # (Auto) 0.0 Neut # 6.6 Lymph # 1.3 [place] # 0.4 Eos # 0.0 Baso # 0.0 Sodium 131 L Potassium 3.6 Chloride 90 L Carbon Dioxide 34 H Anion Gap 10.6 BUN 12 Creatinine 0.80 Estimated GFR (MDRD) 71.00 BUN/Creatinine Ratio 15.00 Glucose 154 H Calcium 9.6 Total Bilirubin 0.35 AST 17 ALT 15 Alkaline Phosphatase 56 Troponin I 0.0140 Total Protein 6.3 Albumin 3.4 Globulin 2.9 Albumin/Globulin Ratio 1.17 Orders Category Date Time Status EKG-(IP & OP ONLY) Stat CARDIO 09/10/16 14:57 Completed CBC W/ AUTO DIFF Stat LAB 09/10/16 15:02 Completed COMPREHENSIVE METABOLIC PANEL Stat LAB 09/10/16 15:02 Completed TROPONIN I Stat LAB 09/10/16 15:02 Completed CHEST, 2 VIEWS PA & LAT Stat RADS 09/10/16 14:53 Completed Vital Signs: Temp Pulse Resp BP Pulse Ox 09/10/16 14:33 98.9 F 105 H 22 119/64 94 L Departure - Departure Time of Disposition: 15:52 Disposition: HOME SELF-CARE Discharge Problem: COPD (chronic obstructive pulmonary disease) with acute bronchitis Instructions: COPD (Chronic Obstructive Pulmonary Disease) (ED), Acute Bronchitis (ED) Condition: Good Pt referred to PMD for follow-up: Yes (Call for appointment) Additional Instructions: Take antibiotic as prescribed; follow up with primary care provider if not better by next week. If worsening return to ER meanwhile. Prescriptions: Amoxicillin 500 mg PO 1-3XD #20 capsule Allergies/Adverse Reactions: Allergies No Known Allergies Allergy (Verified 05/27/16 07:15) Home Medications: Ambulatory Orders Cilostazol [Pletal] 100 mg PO BIDAC 12/09/12 Cyanocobalamin (Vitamin B-12) [B-12] 500 mcg PO DAILY 12/09/12 Potassium Chloride [Micro-K Cap] 5 meq PO DAILYWM 12/09/12 Roflumilast [Daliresp] 500 mcg PO DAILY 03/29/15 Ferrous Gluconate 324 mg PO BID 06/17/15 Hydrocodone Bit/Acetaminophen [[place] 10-325] 1 each PO TID PRN 06/17/15 Duloxetine HCl [Cymbalta] 60 mg PO DAILY 06/18/15 Rosuvastatin Calcium [Crestor] 20 mg PO BEDTIME 12/27/15 Alprazolam [Xanax] 0.25 mg PO BID 05/27/16 Arformoterol Tartrate [Brovana] 1 vial IH Q12H PRN 05/27/16 Aspirin 81 mg PO DAILY 05/27/16 Carvedilol [Coreg] 25 mg PO BID 05/27/16 Cholecalciferol (Vitamin D3) [Vitamin D3] 400 unit PO DAILY 05/27/16 Clopidogrel Bisulfate [Plavix] 75 mg PO DAILY 05/27/16 Escitalopram Oxalate [Lexapro] 10 mg PO DAILY 05/27/16 Hydralazine HCl 100 mg PO BID 05/27/16 Triamterene/Hydrochlorothiazid [Dyazide] 1 cap PO DAILY 05/27/16 Methylprednisolone [Medrol Dosepak] 4 mg PO DIRECTED #1 tab.ds.pk 06/01/16 Pregabalin [Lyrica] 50 mg PO BID #60 capsule 06/01/16 Beclomethasone Dipropionate [Qvar] 80 mcg IH DAILY 06/04/16 Amoxicillin 500 mg PO 1-3XD #20 capsule 09/10/16
[2016-09-10 14:51] VITALS: BP 119/64; TEMP 98.9
[2016-09-10 15:10] LABS: EOSINOPHILS % (AUTO) 0.1 % (0.0-7.0); HEMATOCRIT 33.1 % (37.0-47.0); IMMATURE GRANULOCYTE % (AUTO) 0.5 % (0.0-5.0); LYMPHOCYTES # (AUTO) 1.3 K/uL (0.60-3.4); LYMPHOCYTES % (AUTO) 15.3 (10.0-50.0); MEAN CORPUSCULAR HEMOGLOBIN 26.9 pg (27.0-31.0); MEAN CORPUSCULAR HGB CONC 33.2 (31.8-35.4); MEAN CORPUSCULAR VOLUME 80.9 fl (81.0-99.0); MONOCYTES # (AUTO) 0.4 K/uL (0.4-2.0); MONOCYTES % (AUTO) 5.2 (0-10); NEUTROPHILS # (AUTO) 6.6 K/ul (2.0-6.9); NEUTROPHILS % (AUTO) 78.9; PLATELET COUNT 180 10^3/uL (140-440); RED BLOOD COUNT 4.09 10^6/ul (4.20-5.40); WHITE BLOOD COUNT 8.34 K/ul (4.6-10.2)
--- NOTE | 2016-09-10 15:28 | DI ---
EXAM: PA and lateral views of the chest HISTORY: Cough. COMPARISON: Chest x-ray 05/29/2016 FINDINGS: The cardiomediastinal silhouette is unchanged with atherosclerotic disease. There is no pneumothorax or pleural effusion. Lungs are hyperinflated. There is no consolidation, nodule or ma ss. The osseous structures demonstrate degenerative disease of the spine. Endograft is noted in the upper abdomen. IMPRESSION: Findings are consistent with chronic obstructive pulmonary disease with no acute consol idation.
[2016-09-10 15:39] LABS: ALBUMIN 3.4 g/dL (3.4-5.0); ALBUMIN/GLOBULIN RATIO 1.17; ANION GAP 10.6; BILIRUBIN,TOTAL 0.35 mg/dL (0.00-1.20); CALCIUM 9.6 mg/dL (8.2-10.2); CREATININE 0.8 mg/dL (0.60-1.30); POTASSIUM 3.6 mmol/L (3.5-5.10); TOTAL PROTEIN 6.3 g/dL (5.8-8.1); TROPONIN I 0.014 ng/ml (0.0000-0.4000)
== END 2016-09-10 16:15 | disposition home or self-care (01) ==
LOC: ED 14:32
DX: J44.0 Chronic obstructive pulmonary disease with (acute) lower respiratory infection (principal); J20.9 Acute bronchitis, unspecified; I10 Essential (primary) hypertension; E78.5 Hyperlipidemia, unspecified; Z79.899 Other long term (current) drug therapy; F17.210 Nicotine dependence, cigarettes, uncomplicated
CPT/HCPCS: 36415; 80053; 84484; 85025; 93005; 93010; 99283

== ENCOUNTER 2016-09-17 07:31 | Outpatient (RCR) ==
[2016-10-06 13:23] VITALS: BP 148/68
== END 2016-10-16 ==
LOC: PUL.REHAB 07:31
PROVIDERS: ATTEND Internal Medicine
DX: J44.9 Chronic obstructive pulmonary disease, unspecified (principal)

== ENCOUNTER 2016-10-15 13:12 | Outpatient (RCR) ==
[2016-10-15 13:55] VITALS: BP 148/60
== END 2016-10-16 ==
LOC: PUL.REHAB 13:12
PROVIDERS: ATTEND Internal Medicine
DX: J44.9 Chronic obstructive pulmonary disease, unspecified (principal)

== ENCOUNTER 2016-10-19 08:20 | Outpatient (RCR) | END 2016-11-16 | LOC: PUL.REHAB 08:20 | PROVIDERS: ATTEND Internal Medicine | DX: J44.9 Chronic obstructive pulmonary disease, unspecified (principal) ==

== ENCOUNTER 2016-10-19 22:17 | Inpatient (IN) ==
[2016-10-19] MEDS ORDERED: SOLU-MEDROL 125 MG IVP STA (22:27)
[2016-10-19] MEDS ORDERED: MORPHINE 2 MG/ML SYRINGE IVP STA (22:36)
[2016-10-19] MEDS ORDERED: ZOFRAN 4 MG/2 ML IVP STA (22:36)
--- NOTE | 2016-10-19 22:38 | ED.PDOC ---
General ED Provider: Dr. NIKKI ANG Chief Complaint: Shortness of Air Stated Complaint: Been coughing for couple days, now started with shortness of breath, using breathing treatmnts not helping, so came for the evaluation with family. Time Seen by Physician: 22:36 Mode of Arrival: Wheelchair Information Source: Patient Primary Care Provider: SIDDHARTHA VILLA Nursing and Triage Documentation Reviewed and Agree: Yes Respiratory Complaint Exam - Shortness of Air Complaint/Exam Symptoms Are: Still present Timing: Constant Initial Severity: Moderate Current Severity: Moderate Character: Reports: Dyspnea at rest, Dyspnea on exertion Aggravating: Reports: Allergens, URI Alleviating: Reports: None Associated Signs and Symptoms: Reports: Cough, Wheezing. Denies: Chest pain with cough, Chest pain, Fever, Chills, Diaphoresis, Nasal congestion, Dizziness , Calf pain, Calf swelling, Edema, Rapid breathing, Labored breathing, Decreased intake Related History: Reports: Similar episode History of Healthcare-Acquired Pneumonia: No Pulmonary Embolism Risk Factors: Reports: None Cardiac Risk Factors: Reports: CAD, Hypertension, CHF Pseudomonas Risk Factors: Reports: None Tuberculosis Risk Factors: Reports: None Home Oxygen Use: Yes Recent Stress Test: No Recent Echo/LV Function: No Respiratory Distress: Mild Stridor Present: No Tracheal Deviation: No Subcutaneous Emphysema: No Accessory Muscle Use: Yes Retractions: Not Present Diminished Breath Sounds: No Prolonged Expiratory Phase: Yes Unable to Speak Full Sentences: Yes Fatigue: No Leg Swelling: No Enzo's Sign Present: No Grunting Respirations: No Kussmaul Respirations: No Differential Diagnoses: CHF, COPD Exacerbation, Pneumonia Review of Systems - Review Of Systems Constitutional: Reports: Malaise, Weakness Eyes: Reports: No symptoms Ears, Nose, Mouth, Throat: Reports: No symptoms Respiratory: Reports: Cough, Short of air Cardiac: Reports: No symptoms GI: Reports: No symptoms : Reports: No symptoms Musculoskeletal: Reports: No symptoms Skin: Reports: No symptoms Neurological: Reports: No symptoms Endocrine: Reports: No symptoms Hematologic/Lymphatic: Reports: No symptoms All Other Systems: Reviewed and Negative Past Medical History - Past Medical History Previously Healthy: Yes Endocrine: Reports: Dyslipidemia Cardiovascular: Reports: Hypertension, Other (PAD) Respiratory: Reports: COPD Hematological: Reports: None Gastrointestinal: Reports: None Genitourinary: Reports: None Neuro/Psych: Reports: Anxiety, Depression Musculoskeletal: Reports: Arthritis, Back Pain, Joint Pain Cancer: Reports: None Last Menstrual Period: 26 yrs ago - Surgical History General Surgical History: Reports: Stent Placement - Family History Family History: Reports: Unknown - Social History Smoking Status: Current every day smoker, Heavy tobacco smoker Smoking Cessation Counseling Time: > 3 min - 10 min Hx Substance Use: No Alcohol Screening: Occasionally - Immunizations Tetanus Shot up to Date: No (unsure) Physical Exam - Physical Exam Appearance: Ill-appearing, Thin Ill-appearing: Moderate Eyes: EOMI, Right pupil size ENT: Ears normal, Nose normal, Oropharynx normal Respiratory: Crackles, Rhonchi, Wheezes Cardiovascular: RRR, Pulses normal, No rub, No murmur GI/: Soft, Nontender, No masses, Bowel sounds normal, No Organomegaly Musculoskeletal: Normal strength, ROM intact, No edema, No calf tenderness Skin: Warm, Dry, Normal color Neurological: Sensation intact, Motor intact, Reflexes intact, Cranial nerves intact, Alert, Oriented Psychiatric: Affect appropriate, Mood appropriate Physician Notification - Case Discussed Time of Notification: 00:18 (Dr villa, advised to admit if negative.) Critical Care Note - Critical Care Note Total Time (mins): 0 Course - Course Hematology/Chemistry: 10/19/16 22:35 10/19/16 22:35 Orders, Labs, Meds: Lab Review 10/19/16 10/19/16 22:27 22:35 WBC 8.77 RBC 4.32 Hgb 11.6 L Hct 35.9 L MCV 83.1 MCH 26.9 L MCHC 32.3 RDW Coeff of Tr 15.9 H Plt Count 147 Immature Gran % (Auto) 0.3 Neut % (Auto) 65.7 Lymph % (Auto) 23.6 [place] % (Auto) 8.9 Eos % (Auto) 1.0 Baso % (Auto) 0.5 Immature Gran # (Auto) 0.0 Neut # 5.8 Lymph # 2.1 [place] # 0.8 Eos # 0.1 Baso # 0.0 D-Dimer (Manual) 1247.84 Puncture Site Lb O2 Saturation 92.0 L ABG pH 7.402 ABG pCO2 61.6 H ABG pO2 66.0 L ABG HCO3 38.3 H ABG Total CO2 40 H ABG Base Excess 14 H Miki Test + O2 Delivery Device Nc Oxygen Liter Flow 2.00 FiO2 % 28.0 Sodium 139 Potassium 3.6 Chloride 94 L Carbon Dioxide 35 H Anion Gap 13.6 BUN 12 Creatinine 0.70 Estimated GFR (MDRD) 82.00 BUN/Creatinine Ratio 17.14 Glucose 129 H Calcium 10.0 Total Bilirubin 0.37 AST 23 ALT 11 L Alkaline Phosphatase 75 Total Creatine Kinase 56 Troponin I 0.0450 B-Natriuretic Peptide 847 H Total Protein 6.9 Albumin 3.9 Globulin 3.0 Albumin/Globulin Ratio 1.30 Orders Category Date Time Status ABG DRAW REQUEST Stat CARDIO 10/19/16 22:28 Completed NEBULIZER TREATMENT Stat CARDIO 10/19/16 22:47 Completed NPO REMINDER: IMAGING ONCE CARE 10/20/16 00:18 Ordered ED IV/MEDIPORT/POWERPORT .ONCE EMERGENCY 10/19/16 22:27 Active ABG Stat LAB 10/19/16 22:27 Completed B-TYPE NATRIURETIC PEPTIDE Stat LAB 10/19/16 22:35 Completed CBC W/ AUTO DIFF Stat LAB 10/19/16 22:35 Completed COMPREHENSIVE METABOLIC PANEL Stat LAB 10/19/16 22:35 Completed CREATINE KINASE Stat LAB 10/19/16 22:35 Completed D-DIMER Stat LAB 10/19/16 22:35 Completed TROPONIN I Stat LAB 10/19/16 22:35 Completed 0.9 % Sodium Chloride [Saline Flush] MEDS 10/19/16 22:27 Ordered 1 syr IVF PRN PRN Furosemide [Lasix] MEDS 10/20/16 00:14 Stat 20 mg IVP ONCE STA Ipratropium/Albuterol Neb [Duoneb] MEDS 10/19/16 22:47 Discontinued 1 vial NEB ONCE STA Methylprednisolone Sod Succ/Pf [Solu-Medrol 125 mg] MEDS 10/19/16 22:27 Discontinued 125 mg IVP ONCE STA Morphine Sulfate [Morphine 2 mg/ml Syringe] MEDS 10/19/16 22:36 Discontinued 2 mg IVP ONCE STA Ondansetron HCl/Pf [Zofran 4 mg/2 ml] MEDS 10/19/16 22:36 Discontinued [address] ONCE [address] CHEST PE PROTOCOL Stat RADS 10/20/16 00:[address] CHEST W/O CONTRAST Stat RADS 10/19/16 22:27 Completed Medications Generic Name Dose Route Start Last Admin Trade Name Freq PRN Reason Stop Dose Admin Sodium Chloride 1 syr 10/19/16 22:27 10/19/16 23:10 Saline Flush IVF 1 syr PRN PRN Administration To flush IV Discontinued Medications Generic Name Dose Route Start Last Admin Trade Name Pernell PRN Reason Stop Dose Admin Albuterol/Ipratropium 1 vial 10/19/16 22:47 10/19/16 23:00 Duoneb NEB 10/19/16 22:48 1 vial ONCE STA Administration Furosemide 20 mg 10/20/16 00:14 Lasix IVP 10/20/16 00:15 ONCE STA Methylprednisolone Sodium Succinate 125 mg 10/19/16 22:27 10/19/16 22:45 Solu-Medrol 125 Mg IVP 10/19/16 22:28 125 mg ONCE STA Administration Morphine Sulfate 2 mg 10/19/16 22:36 10/19/16 23:10 Morphine 2 Mg/Ml Syringe IVP 10/19/16 22:37 2 mg ONCE STA Administration Ondansetron HCl 4 mg 10/19/16 22:36 10/19/16 23:07 Zofran 4 Mg/2 Ml IVP 10/19/16 22:37 4 mg ONCE STA Administration Vital Signs: Temp Pulse Resp BP Pulse Ox 10/19/16 23:51 82 22 132/68 95 10/19/16 22:18 98.6 F 124 H 28 H 172/112 H 95 Departure - Departure Time of Disposition: 00:19 Disposition: ADMITTED INPATIENT Discharge Problem: COPD exacerbation Instructions: COPD (Chronic Obstructive Pulmonary Disease) (ED) Condition: Stable Pt referred to PMD for follow-up: Yes Allergies/Adverse Reactions: Allergies No Known Allergies Allergy (Verified 10/19/16 22:25) Home Medications: Ambulatory Orders Cilostazol [Pletal] 100 mg PO BIDAC 12/09/12 Cyanocobalamin (Vitamin B-12) [B-12] 500 mcg PO DAILY 12/09/12 Potassium Chloride [Micro-K Cap] 5 meq PO DAILYWM 12/09/12 Roflumilast [Daliresp] 500 mcg PO DAILY 03/29/15 Ferrous Gluconate 324 mg PO BID 06/17/15 Hydrocodone Bit/Acetaminophen [[place] 10-325] 1 each PO TID PRN 06/17/15 Duloxetine HCl [Cymbalta] 60 mg PO DAILY 06/18/15 Rosuvastatin Calcium [Crestor] 20 mg PO BEDTIME 12/27/15 Alprazolam [Xanax] 0.25 mg PO BID 05/27/16 Arformoterol Tartrate [Brovana] 1 vial IH Q12H PRN 05/27/16 Aspirin 81 mg PO DAILY 05/27/16 Carvedilol [Coreg] 25 mg PO BID 05/27/16 Cholecalciferol (Vitamin D3) [Vitamin D3] 400 unit PO DAILY 05/27/16 Clopidogrel Bisulfate [Plavix] 75 mg PO DAILY 05/27/16 Escitalopram Oxalate [Lexapro] 10 mg PO DAILY 05/27/16 Hydralazine HCl 100 mg PO BID 05/27/16 Triamterene/Hydrochlorothiazid [Dyazide] 1 cap PO DAILY 05/27/16 Pregabalin [Lyrica] 50 mg PO BID #60 capsule 06/01/16 Beclomethasone Dipropionate [Qvar] 80 mcg IH DAILY 06/04/16 Tiotropium Br/Olodaterol HCl [Stiolto Respimat Inhal [place]] 2.5 mcg IH DAILY 07/03 Disposition Discussed With: Patient, Family, Other
[2016-10-19 22:43] LABS: BASOPHILS % (AUTO) 0.5 % (0.0-3.0); EOSINOPHILS # (AUTO) 0.1 K/ul (0.0-0.7); HEMATOCRIT 35.9 % (37.0-47.0); HEMOGLOBIN 11.6 g/dl (12.0-16.0); IMMATURE GRANULOCYTE % (AUTO) 0.3 % (0.0-5.0); LYMPHOCYTES # (AUTO) 2.1 K/uL (0.60-3.4); LYMPHOCYTES % (AUTO) 23.6 (10.0-50.0); MEAN CORPUSCULAR HEMOGLOBIN 26.9 pg (27.0-31.0); MEAN CORPUSCULAR HGB CONC 32.3 (31.8-35.4); MEAN CORPUSCULAR VOLUME 83.1 fl (81.0-99.0); MONOCYTES # (AUTO) 0.8 K/uL (0.4-2.0); MONOCYTES % (AUTO) 8.9 (0-10); NEUTROPHILS # (AUTO) 5.8 K/ul (2.0-6.9); NEUTROPHILS % (AUTO) 65.7; PLATELET COUNT 147 10^3/uL (140-440); RED BLOOD COUNT 4.32 10^6/ul (4.20-5.40); WHITE BLOOD COUNT 8.77 K/ul (4.6-10.2)
[2016-10-19] MEDS ORDERED: DUONEB NEB STA (22:47)
[2016-10-19 23:03] LABS: ABG PCO2 61.6 mmHg (35-45); ABG PH 7.402 (7.35-7.45)
[2016-10-19 23:04] LABS: ABG BASE EXCESS 14 (-2.0-2.0); ABG HCO3 38.3 (22.0-26.0); ABG TCO2 40 (22.0-28.0)
[2016-10-19 23:06] LABS: ALBUMIN 3.9 g/dL (3.4-5.0); ALBUMIN/GLOBULIN RATIO 1.3; ANION GAP 13.6; BILIRUBIN,TOTAL 0.37 mg/dL (0.00-1.20); BUN/CREATININE RATIO 17.14; CREATININE 0.7 mg/dL (0.60-1.30); POTASSIUM 3.6 mmol/L (3.5-5.10); TOTAL PROTEIN 6.9 g/dL (5.8-8.1); TROPONIN I 0.045 ng/ml (0.0000-0.4000)
--- NOTE | 2016-10-19 23:21 | CT ---
EXAM: CT of the chest without contrast. HISTORY: Shortness of breath and cough. PROCEDURE: Contiguous axial CT images of the chest without contrast with coronal and sagittal refor mats. FINDINGS: The heart is mildly enlarged. The thoracic aorta is within normal limits in diameter. Th ere are atherosclerotic calcifications in the thoracic aorta. There are coronary artery calcificati ons. There are calcified mediastinal and hilar lymph nodes. There are calcified granulomas in both lungs. There are emphysematous changes throughout both lungs. No infiltrate or consolidation. Ther e is a 0.4 cm nodule in the right lower lobe. There is a 0.3 cm nodule in the left upper lobe. There are degenerative changes in the spine. The adrenal glands and liver are normal in appearance. There is a stent in the abdominal aorta which is incompletely visualized secondary to termination of imag e acquisition. There is a fluid density cyst in the right kidney. Impression: Chronic obstructive pulmonary disease. Bilateral lung nodules measuring up to 0.4 cm as described. Recommend follow-up CT in 3 months to c onfirm stability. Cardiomegaly.
[2016-10-20] MEDS ORDERED: LASIX IVP STA (00:14)
[2016-10-20] MEDS ORDERED: LOVENOX SUBCUT SCH (00:30)
[2016-10-20] MEDS ORDERED: ROCEPHIN 1 GM in SODIUM CHLORIDE 50 ML IV SCH (00:30)
[2016-10-20] MEDS ORDERED: ARFORMOTEROL TARTRATE IH SCH (00:30)
[2016-10-20] MEDS ORDERED: LOVENOX ONE (01:16)
[2016-10-20] MEDS ORDERED: ROCEPHIN ONE (01:16)
--- NOTE | 2016-10-20 01:19 | CT ---
EXAM: CT angiogram chest with intravenous contrast 10/20/2016. Multi planar reformatted images obt ained. MIP and three-dimensional reconstructed images provided HISTORY: Chronic obstructive pulmonary disease. Shortnessof breath. Question pulmonary embolus COMPARISON: 10/19/2016 FINDINGS: The heart size appears stable. No pericardial effusion. There are no pulmonary arterial filling defects to suggest pulmonary embolus. Emphysematous changes throughout both lungs. Diffuse bilateral bronchial wall thickening suggesting bronchitis/bronchiolitis. Prior study performed 10/19/2016 describes 3 mm nodule the left upper lobe and 4 mm of the right upp er lobe. Follow-up CT chest 3 months is again recommended. IMPRESSION: 1. No pulmonary embolus. 2. Chronic obstructive pulmonary disease. 3. Diffuse bronchial wall thickening suggesting bronchitis/bronchiolitis 4. Stable small noncalcified nodules as previously described. Follow-up CT chest is again recommen ded in approximately 3 months.
[2016-10-20] MEDS ORDERED: SODIUM CHLORIDE 50 ML IV ONE (01:20)
[2016-10-20] MEDS: SODIUM CHLORIDE 1,000 ML IV SCH ×2 (02:10→02:25)
[2016-10-20 02:11] VITALS: BMI 19.1
[2016-10-20] MEDS: DUONEB NEB SCH ×4 (05:17→23:20)
[2016-10-20] MEDS ORDERED: DUONEB NEB ONE (05:17)
[2016-10-20] MEDS: SOLU-MEDROL 125 MG IVP SCH ×3 (05:23→20:22)
[2016-10-20] MEDS: PLETAL PO SCH ×2 (05:30→16:36)
[2016-10-20 06:51] LABS: HEMATOCRIT 34.4 % (37.0-47.0); HEMOGLOBIN 11.2 g/dl (12.0-16.0); IMMATURE GRANULOCYTE % (AUTO) 0.7 % (0.0-5.0); LYMPHOCYTES # (AUTO) 1.2 K/uL (0.60-3.4); LYMPHOCYTES % (AUTO) 25.9 (10.0-50.0); MEAN CORPUSCULAR HEMOGLOBIN 26.9 pg (27.0-31.0); MEAN CORPUSCULAR HGB CONC 32.6 (31.8-35.4); MEAN CORPUSCULAR VOLUME 82.5 fl (81.0-99.0); MONOCYTES # (AUTO) 0.1 K/uL (0.4-2.0); MONOCYTES % (AUTO) 1.6 (0-10); NEUTROPHILS # (AUTO) 3.2 K/ul (2.0-6.9); NEUTROPHILS % (AUTO) 71.8; PLATELET COUNT 156 10^3/uL (140-440); RED BLOOD COUNT 4.17 10^6/ul (4.20-5.40); WHITE BLOOD COUNT 4.51 K/ul (4.6-10.2)
[2016-10-20 07:07] LABS: ALBUMIN 3.8 g/dL (3.4-5.0); ALBUMIN/GLOBULIN RATIO 1.27; ANION GAP 15.2; BILIRUBIN,TOTAL 0.37 mg/dL (0.00-1.20); BUN/CREATININE RATIO 14.86; CREATININE 0.74 mg/dL (0.60-1.30); POTASSIUM 3.2 mmol/L (3.5-5.10); TOTAL PROTEIN 6.8 g/dL (5.8-8.1)
[2016-10-20] MEDS: NORCO 10-325 PO PRN ×2 (07:48→19:20)
[2016-10-20 07:58] LABS: TROPONIN I 1.284 ng/ml (0.0000-0.4000)
[2016-10-20] MEDS ORDERED: MICRO-K CAP PO SCH (08:00)
[2016-10-20] MEDS ORDERED: NON-FORMULARY MEDICATION (Duloxetine Hcl [Cymbalta] 60 MG) PO SCH ×22 (09:00)
[2016-10-20] MEDS ORDERED: NON-FORMULARY MEDICATION (Carvedilol [Coreg] 25 MG) PO SCH ×22 (09:00)
[2016-10-20] MEDS ORDERED: NON-FORMULARY MEDICATION (Ferrous Gluconate [Ferrous Gluconate] 324 MG) PO SCH (09:00)
[2016-10-20] MEDS ORDERED: NON-FORMULARY MEDICATION (Hydralazine Hcl [Hydralazine Hcl] 100 MG) PO SCH (09:00)
[2016-10-20] MEDS ORDERED: NON-FORMULARY MEDICATION (Cholecalciferol (Vitamin D3) [Vitamin D3] 400 UNIT) PO SCH (09:00)
[2016-10-20] MEDS ORDERED: FERROUS SULFATE PO SCH (09:00)
[2016-10-20] MEDS: ZITHROMAX 500 MG in SODIUM CHLORIDE 250 ML IV SCH (09:18)
[2016-10-20] MEDS: ASPIRIN CHEWABLE PO SCH (09:22)
[2016-10-20] MEDS: LEXAPRO PO SCH (09:23)
[2016-10-20] MEDS: COREG PO SCH ×2 (09:23→16:36)
[2016-10-20] MEDS: PLAVIX PO SCH (09:24)
[2016-10-20] MEDS: CYMBALTA PO SCH (09:25)
[2016-10-20] MEDS: VITAMIN D PO SCH (09:25)
[2016-10-20] MEDS: KLOR-CON 8 MEQ PO SCH (09:28)
[2016-10-20] MEDS: DALIRESP PO SCH (09:28)
[2016-10-20] MEDS: XANAX PO SCH ×2 (09:28→20:23)
[2016-10-20] MEDS: DYAZIDE PO SCH (09:29)
[2016-10-20] MEDS: APRESOLINE PO SCH ×3 (09:29→21:29)
[2016-10-20] MEDS: LYRICA PO SCH ×2 (09:34→20:23)
[2016-10-20] MEDS: BECLOMETHASONE DIPROPIONATE 80 MCG IH SCH (09:34)
[2016-10-20] MEDS: NON-FORMULARY MEDICATION (Cyanocobalamin (Vitamin B-12) [B-12] 500 MCG) PO SCH ×22 (09:35)
[2016-10-20] MEDS ORDERED: SODIUM CHLORIDE 200 ML IV ONE (10:45)
[2016-10-20 16:01] LABS: TROPONIN I 2.03 ng/ml (0.0000-0.4000)
[2016-10-20] MEDS: PERFOROMIST NEB SCH (19:10)
[2016-10-20] MEDS: LOVENOX SUBCUT SCH (20:22)
[2016-10-20] MEDS: CRESTOR PO SCH (20:23)
[2016-10-20] MEDS: ROCEPHIN 1 GM in SODIUM CHLORIDE 50 ML IV SCH (20:23)
[2016-10-21] MEDS: SOLU-MEDROL 125 MG IVP SCH ×3 (04:47→20:04)
[2016-10-21] MEDS: NORCO 10-325 PO PRN ×2 (04:47→16:57)
[2016-10-21] MEDS: DUONEB NEB SCH ×4 (05:21→22:36)
[2016-10-21] MEDS: PLETAL PO SCH ×2 (05:32→16:56)
[2016-10-21] MEDS: PERFOROMIST NEB SCH ×2 (05:35→18:13)
[2016-10-21 05:55] LABS: BASOPHILS % (AUTO) 0.1 % (0.0-3.0); HEMATOCRIT 29.6 % (37.0-47.0); HEMOGLOBIN 9.8 g/dl (12.0-16.0); IMMATURE GRANULOCYTE % (AUTO) 0.7 % (0.0-5.0); LYMPHOCYTES # (AUTO) 1.4 K/uL (0.60-3.4); LYMPHOCYTES % (AUTO) 15.1 (10.0-50.0); MEAN CORPUSCULAR HGB CONC 33.1 (31.8-35.4); MEAN CORPUSCULAR VOLUME 81.5 fl (81.0-99.0); MONOCYTES # (AUTO) 0.3 K/uL (0.4-2.0); NEUTROPHILS # (AUTO) 7.3 K/ul (2.0-6.9); NEUTROPHILS % (AUTO) 81.1; PLATELET COUNT 132 10^3/uL (140-440); RED BLOOD COUNT 3.63 10^6/ul (4.20-5.40); WHITE BLOOD COUNT 9.02 K/ul (4.6-10.2)
[2016-10-21 06:14] LABS: ALBUMIN 3.5 g/dL (3.4-5.0); ALBUMIN/GLOBULIN RATIO 1.35; ANION GAP 11.3; BILIRUBIN,TOTAL 0.22 mg/dL (0.00-1.20); BUN/CREATININE RATIO 21.97; CALCIUM 9.4 mg/dL (8.2-10.2); CREATININE 0.91 mg/dL (0.60-1.30); POTASSIUM 3.3 mmol/L (3.5-5.10); TOTAL PROTEIN 6.1 g/dL (5.8-8.1)
[2016-10-21] MEDS ORDERED: K-DUR PO STA (07:51)
[2016-10-21] MEDS: ASPIRIN CHEWABLE PO SCH (09:10)
[2016-10-21] MEDS: CYMBALTA PO SCH (09:10)
[2016-10-21] MEDS: VITAMIN D PO SCH (09:10)
[2016-10-21] MEDS: COREG PO SCH ×2 (09:10→16:56)
[2016-10-21] MEDS: APRESOLINE PO SCH ×2 (09:10→20:30)
[2016-10-21] MEDS: ZITHROMAX 500 MG in SODIUM CHLORIDE 250 ML IV SCH (09:10)
[2016-10-21] MEDS: LEXAPRO PO SCH (09:10)
[2016-10-21] MEDS: PLAVIX PO SCH (09:11)
[2016-10-21] MEDS: DALIRESP PO SCH (09:11)
[2016-10-21] MEDS: DYAZIDE PO SCH (09:11)
[2016-10-21] MEDS: KLOR-CON 8 MEQ PO SCH (09:12)
[2016-10-21] MEDS: BECLOMETHASONE DIPROPIONATE 80 MCG IH SCH (09:12)
[2016-10-21] MEDS: NON-FORMULARY MEDICATION (Cyanocobalamin (Vitamin B-12) [B-12] 500 MCG) PO SCH ×22 (09:12)
[2016-10-21] MEDS: XANAX PO SCH ×2 (10:25→20:30)
[2016-10-21] MEDS: LYRICA PO SCH ×2 (11:49→20:30)
--- NOTE | 2016-10-21 14:56 | HP ---
DATE OF SERVICE: 10/20/16 REASON FOR HOSPITALIZATION: Acute respiratory failure HISTORY OF PRESENT ILLNESS: The patient is a 71 year old white female came to the emergency room because of having cough, congestion, shortness of breath of nearly couple of days duration. The patient was seen and examined in the emergency room by ER attending and was diagnosed to have acute bronchitis. The patient had high D- dimer, pulmonary protocol CT scan of the chest was negative. In fact CT scan of the chest did not reveal any pneumonia. The patient has acute bronchitis with chronic lung disease with history of heavy smoking which she has continued over the years. REVIEW OF SYSTEMS: CONSTITUTIONAL: No night sweats. Weakness and fatigue. No fever or chills. HEENT: Eyes: No visual changes. No eye pain. No eye discharge. ENT: No runny nose. No epistaxis. No sinus pain. No sore throat. No odynophagia. No ear pain. No congestion. RESPIRATORY: Cough and congestion with yellowish sputum production. No hemoptysis. CARDIOVASCULAR: No angina symptoms. No CHF symptoms. No atypical chest pain for CAD. No palpitations. No shortness of breath. Pleuritic type of pain with cough and congestion. No PND. No Orthopnea. GASTROINTESTINAL: No abdominal pain. No nausea or vomiting. No diarrhea or constipation. No hematemesis. No hematochezia. Poor appetite with no nausea and no vomiting. GENITOURINARY: No urgency. No frequency. No dysuria. No hematuria. No obstructive symptoms. No discharge. No pain. No significant abnormal bleeding. MUSCULOSKELETAL: No musculoskeletal pain. No joint swelling. No arthritis. Weakness of the muscles, generalized. NEUROLOGICAL: No headache. No neck pain. No syncope. No seizures. No dizziness. PSYCHIATRIC: Not anxious. No depression. No suicidal thoughts. No homicidal thoughts. SKIN: No rash. No lesions. No wounds. ENDOCRINE: No unexplained weight loss. No weight gain. HEMATOLOGIC/LYMPHATIC: No anemia. No purpura. No petechiae. No prolonged or excessive bleeding. No palpable lymph nodes. PERSONAL/FAMILY/SOCIAL HISTORY: PAST MEDICAL/SURGICAL PROBLEMS: History of Severe chronic lung disease with smoking Severe peripheral arterial disease Neuropathy Dyslipidemia Hypertension Depression MEDICATIONS: Pletal 100mg twice a day B12 One cc every monthly K-tab 5meq PO daily Daliresp 500mcg PO daily Ferrous Sulfate 324mg PO twice a day [place] 10-325mg Three times a day PRN Cymbalta 60mg PO daily Crestor 20mg PO daily Xanax .25mg PO twice a day [place] Q 12 hourly Aspirin 81mg Po daily Coreg 25mg PO twice a day Vitamin D3 400 units daily Plavix 75mg Po daily Lexapro 10mg PO daily Hydralazine 100mg PO twice a day Dyazide one capsule PO twice a day Lyrica 50mg twice a day Qvar 8meq daily one puff Stiolto one stray daily ALLERGIES: None PHYSICAL EXAMINATION: GENERAL: The patient is oriented to time, place and person. VITAL SIGNS: Temperature 97.4, pulse 95, respiratory rate 21, blood pressure 160/80 and pulse ox 90% on 2 liters. HEENT: Head normocephalic, atraumatic. Eyes: Extraocular muscles are intact. Pupils are equal, round and reactive to light and accommodation. Ears: No lesions. Nose appeared normal. Throat: No exudate or erythema. NECK: Supple. No JVP, no carotid bruit. No lymphadenopathy or thyromegaly. LUNGS: Decreased breath sounds but clear to auscultation with mild wheeze. Percussion note normal. Chest symmetrical. HEART: S1, S2, no S3. Grade I/ systolic murmurs. No cyanosis or clubbing. No ascites. Pulses: Dorsalis pedis and posterior tibial pulses feeble bilaterally. ABDOMEN: Soft. Nontender. Bowel sounds active. No CVA tenderness. No mass felt. EXTREMITIES: No edema. Full range of motion of all extremities, equal. NEUROLOGIC: No focal deficit. Cranial nerves II through XII are grossly intact. No headache, no double vision or headache. SKIN: Dry. Intact. Turgor - normal. LYMPHATIC: No palpable lymph nodes/no lymphedema. MUSCULOSKELETAL: Normal joints with no swelling. Muscle tone is normal. LABS: Hgb 11.2, hct 34, WBC 4,500 normal differential, creatinine 0.7, BUN 11, potassium 3.2, BNP 847, glucose 144, ABG pH 7.40, pO2 66,pCO2 61 with oxygen saturation of 92%. HCO3 is 38, troponin 0.04, CK 55, estimated GFR 82cc per minute. ASSESSMENT: 1. Acute respiratory failure with acute bronchitis 2. Chronic respiratory failure 3. Severe chronic lung disease with smoking 4. Severe peripheral arterial disease 5. Neuropathy 6. Non-compliance 7. Anemia 8. Hypertension 9. Dyslipidemia PLAN: 1. Telemetry 2. Continue the rest of the medication 3. Continue Lasix 4. IV steroids 5. IM Zofran for nausea 6. NEBS treatment 7. Lexapro continue 8. Continue Hydralazine and all the anti-hypertensive medications 9. Rocephin 1 gram along with Azithromycin ADDENDUM: Later on I was called that patient's blood pressure dropped to 70/80 systolic. She was practically asymptomatic. The patient was given 200cc of Bolus and watch her for one hour. Keep the legs up and head down. If there is no response then the patient would be started on Dopamine 5mcg per KG per minute and later on I was called and the blood pressure had gone up over systolic 100. The patient was stable with no complaint of chest pain. No PND. No Orthopnea. The patient was again see around 8:00pm. CONDITION: Stable TIME SPENT: More than 70 minutes. KEVIN
[2016-10-21] MEDS: SODIUM CHLORIDE 1,000 ML IV SCH (20:04)
[2016-10-21] MEDS: CRESTOR PO SCH (20:30)
[2016-10-21] MEDS: LOVENOX SUBCUT SCH (20:31)
[2016-10-21] MEDS: ROCEPHIN 1 GM in SODIUM CHLORIDE 50 ML IV SCH (20:32)
[2016-10-21] MEDS: TYLENOL PO PRN (20:33)
[2016-10-22] MEDS: NORCO 10-325 PO PRN ×2 (00:28→07:41)
[2016-10-22 04:45] LABS: HEMATOCRIT 27.8 % (37.0-47.0); HEMOGLOBIN 9.3 g/dl (12.0-16.0); IMMATURE GRANULOCYTE % (AUTO) 1.2 % (0.0-5.0); LYMPHOCYTES # (AUTO) 0.9 K/uL (0.60-3.4); LYMPHOCYTES % (AUTO) 10.6 (10.0-50.0); MEAN CORPUSCULAR HEMOGLOBIN 27.4 pg (27.0-31.0); MEAN CORPUSCULAR HGB CONC 33.5 (31.8-35.4); MEAN CORPUSCULAR VOLUME 81.8 fl (81.0-99.0); MONOCYTES # (AUTO) 0.4 K/uL (0.4-2.0); MONOCYTES % (AUTO) 4.4 (0-10); NEUTROPHILS # (AUTO) 7.1 K/ul (2.0-6.9); NEUTROPHILS % (AUTO) 83.8; PLATELET COUNT 123 10^3/uL (140-440); WHITE BLOOD COUNT 8.47 K/ul (4.6-10.2)
[2016-10-22] MEDS: SOLU-MEDROL 125 MG IVP SCH ×2 (04:59→14:26)
[2016-10-22 05:10] LABS: ALBUMIN 3.3 g/dL (3.4-5.0); ALBUMIN/GLOBULIN RATIO 1.57; ANION GAP 10.9; BILIRUBIN,TOTAL 0.16 mg/dL (0.00-1.20); BUN/CREATININE RATIO 21.25; CALCIUM 9.1 mg/dL (8.2-10.2); CREATININE 0.8 mg/dL (0.60-1.30); POTASSIUM 3.9 mmol/L (3.5-5.10); TOTAL PROTEIN 5.4 g/dL (5.8-8.1)
[2016-10-22] MEDS: DUONEB NEB SCH ×2 (05:34→11:21)
[2016-10-22] MEDS: PERFOROMIST NEB SCH (05:46)
[2016-10-22] MEDS: PLETAL PO SCH (05:47)
[2016-10-22] MEDS: TYLENOL PO PRN (05:47)
[2016-10-22] MEDS: VITAMIN D PO SCH (08:25)
[2016-10-22] MEDS: ASPIRIN CHEWABLE PO SCH (08:26)
[2016-10-22] MEDS: APRESOLINE PO SCH (08:26)
[2016-10-22] MEDS: LEXAPRO PO SCH (08:26)
[2016-10-22] MEDS: CYMBALTA PO SCH (08:26)
[2016-10-22] MEDS: DALIRESP PO SCH (08:26)
[2016-10-22] MEDS: DYAZIDE PO SCH (08:26)
[2016-10-22] MEDS: PLAVIX PO SCH (08:26)
[2016-10-22] MEDS: COREG PO SCH (08:26)
[2016-10-22] MEDS: KLOR-CON 8 MEQ PO SCH (08:26)
[2016-10-22] MEDS: LYRICA PO SCH (08:26)
[2016-10-22] MEDS: BECLOMETHASONE DIPROPIONATE 80 MCG IH SCH (08:36)
[2016-10-22] MEDS: NON-FORMULARY MEDICATION (Cyanocobalamin (Vitamin B-12) [B-12] 500 MCG) PO SCH ×22 (08:37)
--- NOTE | 2016-10-22 09:01 | PN ---
DATE OF SERVICE: 10/21/16 SUBJECTIVE: The patient is a 71 year old white female seen with Nurse Practitioner. The patient's condition has improved since yesterday. Her blood pressure has gone up now 168/76 and we will resume all the antihypertensive medications at her reduced dose. We will monitor. The patient's labs are acceptable and she doesn' t have any evidence of acute marker event. She doesn't have symptoms of CHF or CAD. REVIEW OF SYSTEMS: CONSTITUTIONAL: No night sweats. No fatigue, malaise, lethargy. No fever or chills. HEENT: Eyes: No visual changes. No eye pain. No eye discharge. ENT: No runny nose. No epistaxis. No sinus pain. No sore throat. No odynophagia. No congestion. RESPIRATORY: No cough, no congestion. No hemoptysis. CARDIOVASCULAR: No angina symptoms. No CHF symptoms. No atypical chest pain for CAD. No palpitations. No shortness of breath. GASTROINTESTINAL: No abdominal pain. No nausea or vomiting. No diarrhea or constipation. No hematemesis. No hematochezia. GENITOURINARY: No urgency. No frequency. No dysuria. No hematuria. No obstructive symptoms. No discharge. No pain. No significant abnormal bleeding. MUSCULOSKELETAL: No musculoskeletal pain; no joint swelling. NEUROLOGICAL: No headache. No neck pain. No syncope. No seizures. No dizziness. PSYCHIATRIC: Not anxious. No depression. No suicidal thoughts. No homicidal thoughts. SKIN: No rash. No lesions. No wounds. ENDOCRINE: No unexplained weight loss. No weight gain. HEMATOLOGIC/LYMPHATIC: No anemia. No purpura. No petechiae. No prolonged or excessive bleeding. No palpable lymph nodes. PHYSICAL EXAMINATION: HEENT: Head normocephalic, atraumatic. Eyes: Extraocular muscles are intact. Pupils are equal, round and reactive to light and accommodation. Ears: No lesions. Nose appeared normal. Throat: No exudate or erythema. NECK: Supple. No JVD, no carotid bruit. No lymphadenopathy or thyromegaly. LUNGS: Decreased breath sound but more air entry. Percussion note normal. Chest symmetrical. HEART: S1, S2, no S3. No murmurs. No cyanosis or clubbing. No ascites. Pulses: Dorsalis pedis and posterior tibial pulses +1 to +2 both sides. ABDOMEN: Soft. Nontender. Bowel sounds active. No CVA tenderness. No mass felt. EXTREMITIES: No edema. Full range of motion of all extremities, equal. NEUROLOGIC: No focal deficit. Cranial nerves II through XII are grossly intact. No headache, no double vision or headache. SKIN: Not dry. Intact. Turgor - normal. LYMPHATIC: No palpable lymph nodes/no lymphedema. MUSCULOSKELETAL: Normal joints with no swelling. Muscle tone is normal. ASSESSMENT: 1. Hypotension, episode yesterday could be combination of dehydration and taking her medications regularly very likely that the patient is non-compliant and not taking her medications as prescribed and she ends up on more and more medication as she comes to the office. High blood pressure explained about it and she is somewhat forgetful, early dementia noted clinically. CONDITION: Stable. TIME SPENT: More than 30 minutes. Plan and coordination of the patient's care discussed in the presence of nurse. KEVIN
[2016-10-22] MEDS: ZITHROMAX 500 MG in SODIUM CHLORIDE 250 ML IV SCH (09:20)
[2016-10-22 10:14] VITALS: TEMP 98.2
--- NOTE | 2016-10-22 10:24 | PCM.PROG ---
Attending Provider: ATTENDING PROVIDER: Dr. SIDDHARTHA BRITO DATE OF SERVICE: 10/21/16 SUBJECTIVE: This 71 year old WHITE/ F was hospitalized 10/20/16. The patient is seen with Rupal, nurse practitioner. The patient is lying in bed. Cough is some better. The patient is eating a little bit, has no fever. REVIEW OF SYSTEMS: CONSTITUTIONAL: Fatigue. No night sweats. No fever or chills. HEENT: Eyes: No visual changes. No eye pain. No eye discharge. ENT: No runny nose. No epistaxis. No sinus pain. No odynophagia. No congestion. RESPIRATORY: Cough and congestion. No hemoptysis. CARDIOVASCULAR: No angina symptoms. No CHF symptoms. No atypical chest pain for CAD. No palpitations. No shortness of breath. GASTROINTESTINAL: No abdominal pain. No nausea or vomiting. No diarrhea or constipation. No hematemesis. No hematochezia. GENITOURINARY: No urgency. No frequency. No dysuria. No hematuria. No obstructive symptoms. No discharge. No pain. No significant abnormal bleeding. MUSCULOSKELETAL: No musculoskeletal pain; no joint swelling. NEUROLOGICAL: Awake, alert, oriented to time, place and person. No headache. No neck pain. No syncope. No seizures. No dizziness. PSYCHIATRIC: Not anxious. No depression. No suicidal thoughts. No homicidal thoughts. SKIN: No rash. No lesions. No wounds. ENDOCRINE: No unexplained weight loss. No weight gain. HEMATOLOGIC/LYMPHATIC: No anemia. No purpura. No petechiae. No prolonged or excessive bleeding. No palpable lymph nodes. PHYSICAL EXAMINATION: GENERAL: The patient is awake, alert and oriented, lying/sitting in bed in no distress. VITAL SIGNS: Temperature 98.0 F, Pulse 93, Respiratory Rate 20, BP 166/76, Pulse Ox 96% HEENT: Head normocephalic, atraumatic. Eyes: Extraocular muscles are intact. Pupils are equal, round and reactive to light and accommodation. Ears: No lesions. Nose appeared normal. Throat: No exudate or erythema. NECK: Supple. No JVD, no carotid bruit. No lymphadenopathy or thyromegaly. LUNGS: Diminished breath sounds bilaterally with mild expiratory wheeze. Clear to auscultation. Percussion note normal. Chest symmetrical. HEART: S1, S2, no S3. No murmurs. No cyanosis or clubbing. No ascites. Pulses: Dorsalis pedis and posterior tibial pulses +1 to +2 both sides. ABDOMEN: Soft. Non-tender. Bowel sounds active. No CVA tenderness. No mass felt. EXTREMITIES: No edema. Full range of motion of all extremities, equal. NEUROLOGIC: No focal deficit. Cranial nerves II through XII are grossly intact. No headache, no double vision or headache. SKIN: Not dry. Intact. Turgor-normal. LYMPHATIC: No palpable lymph nodes/no lymphedema. MUSCULOSKELETAL: Normal joints with no swelling. Muscle tone is normal. LAB REVIEW: 10/21/16 05:45 10/21/16 05:45 10/21/16 05:45: WBC 9.02, RBC 3.63 L, Hgb 9.8 L, Hct 29.6 L, MCV 81.5, MCH 27.0 , MCHC 33.1, RDW Coeff of Tr 16.7 H, Plt Count 132 L, Immature Gran % (Auto) 0.7, Neut % (Auto) 81.1, Lymph % (Auto) 15.1, [place] % (Auto) 3.0, Eos % (Auto) 0.0, Baso % (Auto) 0.1, Immature Gran # (Auto) 0.1, Neut # 7.3 H, Lymph # 1.4, [facility] # 0.3 L, Eos # 0.0, Baso # 0.0, Sodium 136, Potassium 3.3 L, Chloride 94 L , Carbon Dioxide 34 H, Anion Gap 11.3, BUN 20 H, Creatinine 0.91, Estimated GFR (MDRD) 61.00, BUN/Creatinine Ratio 21.97, Glucose 142 H, Calcium 9.4, Total Bilirubin 0.22, AST 19, ALT 9 L, Alkaline Phosphatase 55, Total Creatine Kinase 74, Total Protein 6.1, Albumin 3.5, Globulin 2.6, Albumin/Globulin Ratio 1.35 10/20/16 14:35: Total Creatine Kinase 102, Troponin I 2.0300 H* 10/20/16 06:30: Sodium 138, Potassium 3.2 L, Chloride 92 L, Carbon Dioxide 34 H , Anion Gap 15.2, BUN 11, Creatinine 0.74, Estimated GFR (MDRD) 77.00, BUN/ Creatinine Ratio 14.86, Glucose 144 H, Calcium 10.0, Total Bilirubin 0.37, AST 24, ALT 11 L, Alkaline Phosphatase 72, Total Creatine Kinase 110, Troponin I 1.2840 H*, Total Protein 6.8, Albumin 3.8, Globulin 3.0, Albumin/Globulin Ratio 1.27 ASSESSMENT: 1. ACUTE COPD EXACERBATION 2. CHF 3. ANEMIA 4. HYPOKALEMIA 5. CORONARY ARTERY DISEASE 6. DEPRESSION/ANXIETY PLAN: 1. Continue Rocephin and Zithromax 2. Will monitor hemoglobin 3. Potassium 20 mEq one time dose 4. Continue Duonebs Plan and coordination of the patient's care discussed in the presence of Flotation Tank Operator and nurse. CONDITION: Stable SCRIBED BY: KENISHA FRY Social Service Manager scribed while in presence of service performed by Dr. SIDDHARTHA BRITO/RUPAL TRAN APRN on 10/21/16 ([id number])
--- NOTE | 2016-10-22 10:32 | PCM.PROG ---
Attending Provider: ATTENDING PROVIDER: Dr. SIDDHARTHA BRITO DATE OF SERVICE: 10/22/16 SUBJECTIVE: This 71 year old WHITE/ F was hospitalized 10/20/16. The patient is seen with Rupal, Nurse Practitioner. The patient is alert lying in bed, states she is ready to go home. Cough and congestion are better. Pulse ox 100% . REVIEW OF SYSTEMS: CONSTITUTIONAL: No night sweats. No fatigue, malaise, lethargy. No fever or chills. HEENT: Eyes: No visual changes. No eye pain. No eye discharge. ENT: No runny nose. No epistaxis. No sinus pain. No odynophagia. No congestion. RESPIRATORY: Cough and congestion better. No hemoptysis. CARDIOVASCULAR: No angina symptoms. No CHF symptoms. No atypical chest pain for CAD. No palpitations. No shortness of breath. GASTROINTESTINAL: No abdominal pain. No nausea or vomiting. No diarrhea or constipation. No hematemesis. No hematochezia. GENITOURINARY: No urgency. No frequency. No dysuria. No hematuria. No obstructive symptoms. No discharge. No pain. No significant abnormal bleeding. MUSCULOSKELETAL: No musculoskeletal pain; no joint swelling. NEUROLOGICAL: Awake, alert, oriented to time, place and person. No headache. No neck pain. No syncope. No seizures. No dizziness. PSYCHIATRIC: Not anxious. No depression. No suicidal thoughts. No homicidal thoughts. SKIN: No rash. No lesions. No wounds. ENDOCRINE: No unexplained weight loss. No weight gain. HEMATOLOGIC/LYMPHATIC: No anemia. No purpura. No petechiae. No prolonged or excessive bleeding. PHYSICAL EXAMINATION: GENERAL: The patient is awake, alert and oriented, lying in bed in no distress. VITAL SIGNS: Temperature 97.9 F, Pulse 94, Respiratory Rate 18, BP 160/75, Pulse Ox 100% HEENT: Head normocephalic, atraumatic. Eyes: Extraocular muscles are intact. Pupils are equal, round and reactive to light and accommodation. Ears: No lesions. Nose appeared normal. Throat: No exudate or erythema. NECK: Supple. No JVD, no carotid bruit. No lymphadenopathy or thyromegaly. LUNGS: Diminished breath sounds bilaterally but clear and equal bilaterally. Percussion note normal. Chest symmetrical. HEART: S1, S2, no S3. No murmurs. No cyanosis or clubbing. No ascites. Pulses: Dorsalis pedis and posterior tibial pulses +1 to +2 both sides. ABDOMEN: Soft. Non-tender. Bowel sounds active. No CVA tenderness. No mass felt. EXTREMITIES: No edema. Full range of motion of all extremities, equal. NEUROLOGIC: No focal deficit. Cranial nerves II through XII are grossly intact. No headache, no double vision or headache. SKIN: Not dry. Intact. Turgor-normal. LYMPHATIC: Bilateral submandibular nodes that are enlarged with mild tenderness. No lymphedema. MUSCULOSKELETAL: Normal joints with no swelling. Muscle tone is normal. LAB REVIEW: 10/22/16 04:15 10/22/16 04:15 10/22/16 04:15: WBC 8.47, RBC 3.40 L, Hgb 9.3 L, Hct 27.8 L, MCV 81.8, MCH 27.4 , MCHC 33.5, RDW Coeff of Tr 17.2 H, Plt Count 123 L, Immature Gran % (Auto) 1.2, Neut % (Auto) 83.8, Lymph % (Auto) 10.6, [place] % (Auto) 4.4, Eos % (Auto) 0.0, Baso % (Auto) 0.0, Immature Gran # (Auto) 0.1, Neut # 7.1 H, Lymph # 0.9, [place] # 0.4, Eos # 0.0, Baso # 0.0, Sodium 138, Potassium 3.9, Chloride 97 L, Carbon Dioxide 34 H, Anion Gap 10.9, BUN 17, Creatinine 0.80, Estimated GFR ( MDRD) 71.00, BUN/Creatinine Ratio 21.25, Glucose 136 H, Calcium 9.1, Total Bilirubin 0.16, AST 17, ALT 10 L, Alkaline Phosphatase 44 L, Total Protein 5.4 L , Albumin 3.3 L, Globulin 2.1, Albumin/Globulin Ratio 1.57 ASSESSMENT: 1. Acute COPD exacerbation 2. CHF 3. Anemia 4. Hypokalemia 5. CAD 6. Depression/anxiety PLAN: 1. Keflex 500 mg t.i.d. for 7 days 2. Prednsone 20 mg once a day for 5 days 3. Oxygen as needed 4. Anticipate discharge home Plan and coordination of the patient's care discussed in the presence of Family Service Caseworker and nurse. CONDITION: Stable SCRIBED BY: KENISHA FRY Loading Machine Tool Setter scribed while in presence of service performed by Dr. SIDDHARTHA BRITO/RUPAL TRAN APRN on 10/22/16 ([id number])
[2016-10-22] MEDS: XANAX PO SCH (10:42)
--- NOTE | 2016-10-22 14:58 | CT ---
EXAM: CT soft tissue neck without contrast. HISTORY: Enlarged submandibular lymph nodes. COMPARISON: None available. TECHNIQUE: Multiple axial images of the neck were obtained without contrast. Images were reformatt ed in the sagittal and coronal plane. FINDINGS: No acute intracranial abnormality identified. No intraorbital abnormality detected. The parotid glands are unremarkable. There is mild enlargement of both submandibular glands with lo ss of the normal fat planes and mild adjacent fat stranding which corresponds to the areas of concer n. No adjacent lymph nodes identified within limitations of noncontrast technique. No calcificatio ns or salivary ductal dilatation identified. Pharyngeal soft tissues, epiglottis and laryngeal stru ctures are unremarkable. Subglottic airway is normal in caliber. Thyroid gland is normal in size. Atherosclerotic calcifications present. Emphysematous changes present in the lung apices. IMPRESSION: Inflammation of both submandibular glands, most likely infectious or inflammatory. Clinical follow- up is recommended.
[2016-10-22 15:17] VITALS: BP 156/74
--- NOTE | 2016-10-22 15:38 | CM.DICTOOL ---
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 ANEMIA LAST VITALS Temp Pulse Resp BP Pulse Ox 98.2 F 95 H 20 119/57 L 96 10/22/16 10:00 10/22/16 10:00 10/22/16 10:00 10/22/16 10:00 10/22/16 10:00 ACTIVE HOME MEDICATIONS Acetaminophen/Hydrocodone Bitart (Christmas 10-325) 1 tab PO TID PRN PRN Reason: Joint Pain Last Admin: 10/22/16 07:41 Dose: 1 tab Alprazolam (Xanax) 0.25 mg PO BID [facility] Last Admin: 10/22/16 10:42 Dose: 0.25 mg Aspirin (Aspirin Chewable) 81 mg PO DAILYWM [facility] Last Admin: 10/22/16 08:26 Dose: 81 mg Carvedilol (Coreg) 25 mg PO BIDWM [facility] Last Admin: 10/22/16 08:26 Dose: 25 mg Cholecalciferol (Vitamin D) 400 unit PO DAILY [facility] Last Admin: 10/22/16 08:25 Dose: 400 unit Cilostazol (Pletal) 100 mg PO BIDAC [facility] Last Admin: 10/22/16 05:47 Dose: 100 mg Clopidogrel Bisulfate (Plavix) 75 mg PO DAILY [facility] Last Admin: 10/22/16 08:26 Dose: 75 mg Duloxetine HCl (Cymbalta) 60 mg PO DAILY [facility] Last Admin: 10/22/16 08:26 Dose: 60 mg Escitalopram Oxalate (Lexapro) 10 mg PO DAILY [facility] Last Admin: 10/22/16 08:26 Dose: 10 mg Ferrous Gluconate 324 mg PO BID Arformoterol Tartrate (Brovana) 1 vial IH Q12 PRN Hydralazine HCl (Apresoline) 100 mg PO BID [facility] Last Admin: 10/22/16 08:26 Dose: 100 mg Beclomethasone Dipropionate [Qvar] 80 mcg IH DAILY [facility] Last Admin: 10/22/16 08:36 Dose: Not Given Cyanocobalamin (Vitamin B-12) [B-12] 500 mcg PO DAILY [facility] Last Admin: 10/22/16 08:37 Dose: Not Given Tiotropium Br/Olodaterol Hcl [Stiolto Respimat Inhal [place]] 2.5 mcg IH DAILY [facility] Last Admin: 10/22/16 08:37 Dose: Not Given Potassium Chloride 5 meq PO DAILY [facility] Last Admin: 10/22/16 08:26 Dose: 8 meq Pregabalin (Lyrica) 50 mg PO BID [facility] Last Admin: 10/22/16 08:26 Dose: 50 mg Roflumilast (Daliresp) 500 mcg PO DAILY [facility] Last Admin: 10/22/16 08:26 Dose: 500 mcg Rosuvastatin Calcium (Crestor) 20 mg PO BEDTIME [facility] Last Admin: 10/21/16 20:30 Dose: 20 mg Triamterene/HCTZ (Dyazide) 1 cap PO DAILY [facility] Last Admin: 10/22/16 08:26 Dose: 1 cap ALLERGIES No Known Allergies Allergy (Verified 10/19/16 22:25) NEW PRESCRIPTIONS: KEFLEX 500 MG, TAKE ONE CAPSULE BY MOUTH THREE TIMES DAILY FOR 7 (SEVEN) DAYS PREDNISONE 20 MG, TAKE ONE TAB BY MOUTH DAILY FOR 5 DAYS, THEN 10 MG DAILY x 5 DAYS - WITH FOOD SMOKING: CURRENT EVERY DAY SMOKER SMOKING CESSATION BENEFITS HAVE BEEN EXPLAINED TO THE PATIENT ALONG WITH THE RISKS OF CONTINUATION. SHE HAS VERBALIZED A GOOD UNDERSTANDING OF THE INFORMATION PRESENTED AND HAS NOT COMMITTED TO STOP SMOKING. SHE WILL REQUIRE REINFORCEMENT OF THE TEACHING AND CONTINUED ENCOURAGEMENT FOR COMPLETE SMOKING CESSATION. DISEASE SPECIFIC EDUCATION: COPD HEART FAILURE HOME MEDICATIONS NEW PRESCRIPTIONS STEROID USE - RISKS AND BENEFITS FOLLOW UP LAB REVIEW: 10/22/16 04:15 10/22/16 04:15 10/22/16 04:15: WBC 8.47, RBC 3.40 L, Hgb 9.3 L, Hct 27.8 L, MCV 81.8, MCH 27.4 , MCHC 33.5, RDW Coeff of Tr 17.2 H, Plt Count 123 L, Immature Gran % (Auto) 1.2, Neut % (Auto) 83.8, Lymph % (Auto) 10.6, [place] % (Auto) 4.4, Eos % (Auto) 0.0, Baso % (Auto) 0.0, Immature Gran # (Auto) 0.1, Neut # 7.1 H, Lymph # 0.9, [place] # 0.4, Eos # 0.0, Baso # 0.0, Sodium 138, Potassium 3.9, Chloride 97 L, Carbon Dioxide 34 H, Anion Gap 10.9, BUN 17, Creatinine 0.80, Estimated GFR ( MDRD) 71.00, BUN/Creatinine Ratio 21.25, Glucose 136 H, Calcium 9.1, Total Bilirubin 0.16, AST 17, ALT 10 L, Alkaline Phosphatase 44 L, Total Protein 5.4 L , Albumin 3.3 L, Globulin 2.1, Albumin/Globulin Ratio 1.57 PLAN: DISCHARGE HOME TODAY RETURN TO SEE DR. BRITO FOR FOLLOW UP IN 5-7 DAYS. PLEASE PHONE THE OFFICE TO SCHEDULE YOUR FOLLOW UP APPOINTMENT ([phone]) RETURN TO [facility] FOR A 2-D AND M-MODE ECHO BY DR. BRITO ON AT 6:30 AM RESUME YOUR HOME MEDICATIONS PER LIST PROVIDED BY THE NURSING STAFF NEW PRESCRIPTIONS: KEFLEX 500 MG, TAKE ONE CAPSULE BY MOUTH THREE TIMES DAILY FOR 7 (SEVEN) DAYS PREDNISONE 20 MG, TAKE ONE TAB BY MOUTH DAILY FOR 5 DAYS, THEN 10 MG DAILY FOR 5 - WITH FOOD ACTIVITY: GET PLENTY OF REST AT HOME. GRADUALLY INCREASE YOUR ACTIVITY LEVEL ACCORDING TO YOUR TOLERATION DIET: HEALTHY HEART SUMMARY: THE PATIENT IS ALERT AND ORIENTED X3. SHE CURRENTLY RESIDES AT HOME WITH HER SPOUSE. SHE HAS BEEN INDEPENDENT WITH ADL'S AND REQUIRES NO DME WITH THE EXCEPTION OF HOME OXYGEN. SHE SAYS SHE HAD BEEN REQUIRED TO USE THE OXYGEN AT NIGHT. NOW SHE IS REQUIRED TO USE IT MORE OFTEN DUE TO THE PROGRESSION OF HER COPD. SHE DESIRES TO RETURN HOME AFTER DISCHARGE. HER SKIN TURGOR IS INTACT. THERE ARE NO DECUBITUS ULCERS PRESENT AT DISCHARGE. THE HYDRATION STATUS IS GOOD. MS. BERMUDEZ HAS SHOWN REMARKABLE CLINICAL IMPROVEMENT DURING THE HOSPITAL COURSE. SHE DESIRES TO RETURN HOME TODAY AND IS AWARE AND AGREEABLE FOR TODAY'S DISCHARGE PLAN. MILDRED TRAN APRN SIDDHARTHA BRITO M.D.
--- NOTE | 2016-10-23 11:23 | PN ---
DATE OF SERVICE: 10/22/16 ADDENDUM TO DISCHARGE NOTE AND DISCHARGE SUMMARY SUBJECTIVE: The patient is a 71 year old white female hospitalized with COPD and acute bronchitis. The patient has been doing very well and her bronchitis has resolved and she is up and about. Appetite has improved. She is oriented to time , place and person. She has continued to smoking. Counseling for smoking done. The patient has a couple of nodules that needs to be followed by CT scan of the chest. During the stay in the hospital she had a hypotensive episode which was hard to explain. In any case it responded to fluid bolus. The antihypertensive medications were held for a day or so and now that blood pressure 160/75 today. The patient is advised to take all her medication on a regular basis. The patient is going to discharge on Keflex and Prednisone. Side effects of Prednisone discussed and the patient has bilateral submandibular gland enlargement. We will do CT scan of the soft tissue of the neck before discharge. She has generalized ASHD. PHYSICAL EXAMINATION: GENERAL: The patient is oriented to time, place and person. HEENT: Head normocephalic, atraumatic. Eyes: Extraocular muscles are intact. Pupils are equal, round and reactive to light and accommodation. Ears: No lesions. Nose appeared normal. Throat: No exudate or erythema. NECK: Supple. No JVD, no carotid bruit. No lymphadenopathy or thyromegaly. LUNGS: Decreased breath sounds but clear to auscultation. Percussion note normal. Chest symmetrical. HEART: S1, S2, no S3. No murmurs. No cyanosis or clubbing. No ascites. Pulses: Dorsalis pedis and posterior tibial pulses +1 to +2 both sides. ABDOMEN: Soft. Nontender. Bowel sounds active. No CVA tenderness. No mass felt. EXTREMITIES: No edema. Full range of motion of all extremities, equal. NEUROLOGIC: No focal deficit. Cranial nerves II through XII are grossly intact. No headache, no double vision or headache. SKIN: Not dry. Intact. Turgor - normal. LYMPHATIC: No palpable lymph nodes/no lymphedema. MUSCULOSKELETAL: Normal joints with no swelling. Muscle tone is normal. PLAN: 1. The patient will have echocardiogram as outpatient CONDITION: Stable TIME SPENT: More than 30 minutes. Plan and coordination of the patient's care discussed in the presence of nurse. KEVIN
--- NOTE | 2016-10-23 11:24 | PN ---
10/20/16: Level 5 10/21/16: Intermediate 10/22/16: D as in discharge MTDD
--- NOTE | 2016-10-29 14:53 | DS ---
DATE OF SERVICE: 10/22/16 FINAL DIAGNOSIS: 1. COPD EXACERBATION 2. ACUTE ON CHRONIC HEART FAILURE 3. HYPOKALEMIA MILD 4. LYMPHADENOPATHY SUBMANDIBULAR 5. CONTINUED TOBACCO ABUSE 6. HYPERTENSION 7. DYSLIPIDEMIA 8. ANXIETY 9. DEPRESSION 10. ARTHRITIS 11. PERIPHERAL ARTERIAL DISEASE 12. NEUROPATHY 13. AORTOILIAC BYPASS 14. BILATERAL FEM/POP 15. HYSTERECTOMY 16. INFRARENAL ARTERY STENOSIS 17. CAROTID OCCLUSIVE DISEASE 18. ANEMIA DISCHARGE INSTRUCTIONS: 1. Followup appointment: Return to see Dr. Dawson for followup in 5 to 7 days. Please phone the office to schedule your followup appointment. 2. Return to [facility] outpatient for a 2'D' and M-Mode echo by Dr. Dawson on 10/28/16 at 6:30 a.m. MEDICATIONS AT DISCHARGE: 1. Cyanocobalamin 500 mcg p.o. daily 2. Cilostazol (Pletal) 100 mg p.o. b.i.d. a.c. 3. Potassium Chloride (Micro-K) 5 mEq p.o. daily with meal 4. Roflumilast (Daliresp) 500 mcg p.o. daily 5. Ferrous Gluconate 324 mg p.o. b.i.d. 6. Hydrocodone Bit/Acetaminophen ([place] 10-325) one each p.o. t.i.d. p.r.n. 7. Duloxetine (Cymbalta) 60 mg p.o. daily 8. Rosuvastatin Calcium (Crestor) 20 mg p.o. bedtime 9. Arformoterol Tartrate one vial IH q.12h p.r.n. 10.Triamterene/Hydrochlorothiazide (Dyazide) one cap p.o. daily 11. Cholecalciferol (Vitamin D3) 400 unit p.o. daily 12. Escitalopram (Lexapro) 10 mg p.o. daily 13. Clopidogrel (Plavix) 75 mg p.o. daily 14. Aspirin 81 mg p.o. daily 15. Carvedilol (Coreg) 25 mg p.o. b.i.d. 16. Hydralazine 100 mg p.o. b.i.d. 17. Alprazolam (Xanax) 0.25 mg p.o. b.i.d. 18. Pregabalin (Lyrica) 50 mg p.o. b.i.d. 19. Beclomethasone 80 mcg IH daily 20. Tiotropium 2.5 mcg IH daily NEW PRESCRIPTIONS: 1. Keflex 500 mg, take one capsule by mouth three times daily for 7 days 2. Prednisone 20 mg take one tab by mouth daily for 5 days, then 10 mg daily times 5 days with food DIET INSTRUCTIONS: Healthy Heart ACTIVITY: Get plenty of rest at home. Gradually increase your activity level according to your toleration. SMOKING: Current every day smoker. DISEASE SPECIFIC EDUCATION: 1. COPD 2. Heart failure 3. Home medications 4. New prescriptions 5. Steroid use - risks and benefits 6. Follow up HOSPITAL COURSE: This is a 71-year-old female admitted on 10/19/16. She arrived at the Emergency Room complaining of shortness of breath. She said she had coughing for several days. She was using breathing treatments and they were not helping. She was experiencing dyspnea at rest and with exertion. She has a history of COPD. On admission, hemoglobin 11.6, hematocrit 35.9, white count 8.77, platelets 147. Her D. dimer was 1247. On her ABGs in the emergency room her 02 saturation was 92, pH 7.4, pc02 61.6, p02 66.0m bicarb was 38.3, total c02 was 40 with a base excess of 14. The patient uses oxygen at home and had stated she had been using it more often rather than just at night and was still experiencing shortness of breath. Her BUN was 12 and creatinine 0.7 in the emergency room. Her BNP was 847. The patient was subsequently admitted as a regular admit to the floor. She was placed on routine telemetry orders, given Lasix 40 mg STAT along with Solu-Medrol 125 mg, Duonebs with CT of the chest performed. CT of the chest showed COPD exacerbation with two pulmonary nodules that appeared stable although it was recommended a repeat CT scan of the chest be conducted in 3 months to follow up. During the course of her stay she remained stable. The patient improved significantly after first course of IV steroids. She remained on oxygen, routine telemetry, remained in normal sinus rhythm. Vital signs remained. The patient is a long-term, one pack per day smoker. On the day of discharge education was provided regarding smoking cessation, which was advised On admission, pulse ox is low with 02 at 2L at 92%. On the day of discharge, the patient was satting 100% with oxygen at 2L. She had been up and about. She was not experiencing any shortness of breath at rest, only mild shortness of breath on exertion which is significantly improved since admission. Labs were stable on day of discharge with sodium 138, potassium 3.9, BUN 17, creatinine 0.8. Hemoglobin was 9.3, hematocrit 27.8. Due to her significant improvement, the patient will be discharged today, home on Keflex 500 mg t.i.d. for 7 days with Prednisone 20 mg daily for the next 5 days. On the day of discharge, it was also noted that she had some submandibular enlargement. A soft tissue CT scan was performed which indicated inflammation vs infection of the submandibular gland and these are not lymph nodes. The steroids which she is discharged home on should take care of this. On day of discharge, the patient stated she had been eating well, her blood pressure had been steadily, again she had been up and about and experiencing normal mild shortness of breath and able to be up and about without oxygen on. The patient will follow up in the office next week. She will continue her medicines along with oxygen as needed at home along with Duonebs at home as well. We will continue to follow her. TIME SPENT: More than 60 minutes. KEVIN
== END 2016-10-22 16:15 | disposition home or self-care (01) | DRG 192 ==
LOC: ED 22:17 → MEDSURG B 10-20 01:27
PROVIDERS: ADMIT Internal Medicine; ATTEND Internal Medicine
DX: J44.1 Chronic obstructive pulmonary disease with (acute) exacerbation (principal); R06.02 Shortness of breath; I10 Essential (primary) hypertension; R59.0 Localized enlarged lymph nodes; I73.9 Peripheral vascular disease, unspecified; I77.89 Other specified disorders of arteries and arterioles; I95.0 Idiopathic hypotension; R91.8 Other nonspecific abnormal finding of lung field; I50.9 Heart failure, unspecified; E87.6 Hypokalemia; D64.9 Anemia, unspecified; I70.1 Atherosclerosis of renal artery; E78.5 Hyperlipidemia, unspecified; F41.8 Other specified anxiety disorders; M19.90 Unspecified osteoarthritis, unspecified site; G62.9 Polyneuropathy, unspecified; R05 Cough; F17.200 Nicotine dependence, unspecified, uncomplicated; Z79.01 Long term (current) use of anticoagulants; Z79.899 Other long term (current) drug therapy
CPT/HCPCS: 36415; 80053; 82550; 82803; 83880; 84484; 85025; 85379; 93005; 93010; 94640; 96365; 96372; 96375; 99284

== ENCOUNTER 2016-10-28 06:26 | Outpatient (CLI) ==
--- NOTE | 2016-10-28 09:34 | ECHO2D ---
Date of Exam: 10/28/16 Ordering Physician: SIDDHARTHA BRITO Reason for Echo: HTN, CHF, SOB M-Mode Normal Adult Results LV Dimensions Normal Adult Results AoV Opening excursions >1.6 >1.6 LVEDD-base- 3.5-5.8 4.5 Ao root dimensions 2.0-3.7 2.7 LVESD-base- 3.1-4.6 L. Atrium dimensions 1.9-3.8 4.0 Post. Wall thickness 0.8-1.1 1.3 IV septum (thickness) 0.7-1.2 1.4 Post. Wall excursion 0.72-1.3 NORMAL Septal motion 0.5 Systolic motion R. Ventricular cavity 1.5-2.0 NORMAL LVEF 60% 46% Paradoxical septal wall motion NORMAL 2-D : MILDLY ENLARGED LEFT ATRIAL CAVITY--MILDLY HYPOKINETIC SEPTUM, NO EFFUSION , NO THROMBUS, NORMAL LEFT VENTRICLE SIZE M-MODE: MV: NORMAL AV: NORMAL TV: NORMAL PV: CHAMBER SIZE: MILDLY ENLARGED LEFT ATRIAL CAVITY WALL MOTION: HYPOKINETIC SEPTUM PERICARDIUM: NORMAL INTERPRETATION: 1. LEFT VENTRICULAR HYPERTROPHY--STIFF LEFT VENTRICLE 2. MILDLY HYPOKINETIC SEPTUM, LEFT VENTRICULAR EJECTION FRACTION 46% 3. MILDLY ENLARGED LEFT ATRIAL CAVITY 4. NORMAL VALVES, NORMAL LEFT VENTRICLE SIZE MTDD
== END 2016-10-28 06:27 | disposition home or self-care (01) ==
LOC: CAR 06:26
PROVIDERS: ATTEND Internal Medicine
DX: R06.02 Shortness of breath (principal); I50.9 Heart failure, unspecified; I10 Essential (primary) hypertension

== ENCOUNTER 2016-11-03 12:35 | Inpatient (IN) ==
[2016-11-03 13:22] LABS: ABG PH 7.32 (7.35-7.45)
[2016-11-03 13:23] LABS: ABG BASE EXCESS 9 (-2.0-2.0); ABG HCO3 35 (22.0-26.0); ABG TCO2 37 (22.0-28.0)
[2016-11-03 13:32] LABS: BASOPHILS % (AUTO) 0.1 % (0.0-3.0); EOSINOPHILS # (AUTO) 0.1 K/ul (0.0-0.7); EOSINOPHILS % (AUTO) 0.8 % (0.0-7.0); HEMOGLOBIN 9.5 g/dl (12.0-16.0); IMMATURE GRANULOCYTE % (AUTO) 1.3 % (0.0-5.0); LYMPHOCYTES # (AUTO) 1.2 K/uL (0.60-3.4); MEAN CORPUSCULAR HEMOGLOBIN 27.2 pg (27.0-31.0); MEAN CORPUSCULAR HGB CONC 31.7 (31.8-35.4); MONOCYTES % (AUTO) 8.3 (0-10); NEUTROPHILS # (AUTO) 9.8 K/ul (2.0-6.9); NEUTROPHILS % (AUTO) 79.5; PLATELET COUNT 180 10^3/uL (140-440); RED BLOOD COUNT 3.49 10^6/ul (4.20-5.40); WHITE BLOOD COUNT 12.28 K/ul (4.6-10.2)
--- NOTE | 2016-11-03 13:51 | DI ---
EXAM: Single view of the chest HISTORY: Cough. COMPARISON: Chest x-ray 09/10/2016 FINDINGS: Cardiomediastinal silhouette is unremarkable with atherosclerotic disease of the aorta. T here is no pneumothorax or pleural effusion. There is mild small airways thickening in the left low er lobe. There is no acute consolidation. The osseous structures are unremarkable. IMPRESSION: Airway thickening and minimal ground-glass in the left lower lobe suggestive of bronchiolitis versus reactive airways changes.
[2016-11-03 13:58] LABS: ACETAMINOPHEN 5 ug/ml (10-30); ALANINE AMINOTRANSFERASE 28 U/L (12-78); ALBUMIN 3.4 g/dL (3.4-5.0); ALBUMIN/GLOBULIN RATIO 1.26; ALKALINE PHOSPHATASE 62 U/L (53-141); ANION GAP 16.7; ASPARTATE AMINO TRANSFERASE 40 U/L (15-37); BILIRUBIN,TOTAL 0.32 mg/dL (0.00-1.20); BLOOD UREA NITROGEN 8 mg/dL (7-18); BUN/CREATININE RATIO 10.52; CALCIUM 8.6 mg/dL (8.2-10.2); CARBON DIOXIDE 31 mmol/L (23-31); CHLORIDE 93 mmol/L (98-107); CREATINE KINASE 39 U/L; CREATININE 0.76 mg/dL (0.60-1.30); GLUCOSE 104 mg/dL (82-115); POTASSIUM 4.7 mmol/L (3.5-5.10); SALICYLATE < 5.0 mg/dL (2.8-20.0); SODIUM 136 mmol/L (136-145); TOTAL PROTEIN 6.1 g/dL (5.8-8.1)
--- NOTE | 2016-11-03 14:03 | CT ---
EXAM: CT scan of the head without contrast HISTORY: Fall TECHNIQUE: Imaging of the head was performed without contrast. 5 mm thin axial images and coronal and sagittal images were provided for interpretation. FINDINGS: The lateral ventricles and cortical sulci are normal. No acute hemorrhages are seen. Th ere is no mass effect. Basal cisterns are patent. The paranasal sinuses and mastoid air cells are c lear. The calvarium and extracranial soft tissues are normal. IMPRESSION: No acute traumatic abnormalities are seen.
--- NOTE | 2016-11-03 14:11 | CT ---
EXAM: CT abdomen pelvis without contrast HISTORY: Pain, confusion COMPARISON: None TECHNIQUE: CT abdomen pelvis performed without intravenous contrast. Coronal and sagittal reformat manuelito images obtained. FINDINGS: Bilateral lower airway thickening. Subsegmental atelectasis and/or scarring in the lingul a. Emphysematous change. No free air. No acute abnormalities of the bones. Degenerative change in the spine. Heart is top normal in size. Trace pericardial fluid anteriorly. Evaluation organ pare nchyma limited without contrast. Liver unremarkable. Gallbladder unremarkable. Pancreas unremarka ble. Granulomatous calcification in the spleen. Spleen otherwise unremarkable. Adrenals unremarka ble. No hydronephrosis or nephrolithiasis. Small bilateral renal cysts. No calculi visualized in n ormal course of the ureters. Bladder unremarkable. Patient status post hysterectomy. Extensive at herosclerosis. Aorta normal in caliber. Aortic biiliac endovascular stent. No lymphadenopathy or ascites. No dilated loops. Stomach unremarkable. No dilated loops small bowel. Appendix appears normal. Colon unremarkable. Trace free fluid in the pelvis. There is mild haziness of the upper ab dominal mesentery associated with scattered normal size lymph nodes. IMPRESSION: 1. Mild haziness upper abdominal mesenteric probably mild mesenteric panniculitis versus less likely mild nonspecific mesenteric edema. 2. Emphysema. Bilateral lower airway thickening suggesting infectious/inflammatory bronchiolitis. 3. Trace free fluid in the pelvis, nonspecific. 4. Extensive atherosclerosis. Aortic iliac stent.
[2016-11-03 14:39] LABS: ABG BASE EXCESS 10 (-2.0-2.0); ABG HCO3 37.4 (22.0-26.0); ABG PCO2 83.5 mmHg (35-45); ABG PH 7.259 (7.35-7.45)
[2016-11-03 14:40] LABS: ABG TCO2 40 (22.0-28.0)
--- NOTE | 2016-11-03 14:47 | ED.PDOC ---
General ED Provider: Dr. CHEN SHAIKH Chief Complaint: Altered Mental Status Stated Complaint: altered mental status Time Seen by Physician: 13:00 (seen with entire nursing staff ) Mode of Arrival: Wheelchair Information Source: Patient, Family Exam Limitations: No limitations Primary Care Provider: SIDDHARTHA BRITO Nursing and Triage Documentation Reviewed and Agree: Yes Respiratory Complaint Exam - Shortness of Air Complaint/Exam Onset/Duration: was altered may have taken 1 extra xanax pill Symptoms Are: Resolved Initial Severity: Mild Current Severity: None Aggravating: Reports: None Alleviating: Reports: None Associated Signs and Symptoms: Denies: Cough, Wheezing, Chest pain with cough, Chest pain, Fever, Chills, Diaphoresis, Nasal congestion, Dizziness, Calf pain, Calf swelling, Edema, Rapid breathing, Labored breathing, Decreased intake History of Healthcare-Acquired Pneumonia: No Pulmonary Embolism Risk Factors: Reports: Bedrest Cardiac Risk Factors: Reports: Elevated lipids, Hypertension Pseudomonas Risk Factors: Reports: Chronic Lung Disease Tuberculosis Risk Factors: Reports: None Home Oxygen Use: No Recent Stress Test: No Recent Echo/LV Function: No Respiratory Distress: None Stridor Present: No Tracheal Deviation: No Subcutaneous Emphysema: No Accessory Muscle Use: No Retractions: Not Present Diminished Breath Sounds: No Prolonged Expiratory Phase: No Unable to Speak Full Sentences: No Fatigue: No Leg Swelling: No Enzo's Sign Present: No Grunting Respirations: No Kussmaul Respirations: No Differential Diagnoses: CHF, COPD Exacerbation, Pneumonia Review of Systems - Review Of Systems Constitutional: Reports: Malaise Eyes: Reports: No symptoms Ears, Nose, Mouth, Throat: Reports: No symptoms Respiratory: Reports: No symptoms Cardiac: Reports: No symptoms GI: Reports: No symptoms : Reports: No symptoms Musculoskeletal: Reports: No symptoms Skin: Reports: No symptoms Neurological: Reports: Cognitive dysfunction (but not on arrival) Endocrine: Reports: No symptoms Hematologic/Lymphatic: Reports: No symptoms All Other Systems: Reviewed and Negative Past Medical History - Past Medical History Previously Healthy: Yes Endocrine: Reports: Dyslipidemia Cardiovascular: Reports: Hypertension, Other (PAD) Respiratory: Reports: COPD Hematological: Reports: None Gastrointestinal: Reports: None Genitourinary: Reports: None Neuro/Psych: Reports: Anxiety, Depression Musculoskeletal: Reports: Arthritis, Back Pain, Joint Pain Cancer: Reports: None Last Menstrual Period: na - Surgical History General Surgical History: Reports: Stent Placement - Family History Family History: Reports: Unknown - Social History Smoking Status: Current some day smoker Hx Substance Use: No Alcohol Screening: Occasionally - Immunizations Tetanus Shot up to Date: Yes Physical Exam - Physical Exam Appearance: Well-appearing, No pain distress, Well-nourished Eyes: ARIEL, EOMI, Conjunctiva clear ENT: Ears normal, Nose normal, Oropharynx normal Respiratory: Airway patent, Breath sounds clear, Breath sounds equal, Respirations nonlabored Cardiovascular: RRR, Pulses normal, No rub, No murmur GI/: Soft, Nontender, No masses, Bowel sounds normal, No Organomegaly Musculoskeletal: Normal strength, ROM intact, No edema, No calf tenderness Skin: Warm, Dry, Normal color Neurological: Sensation intact, Motor intact, Reflexes intact, Cranial nerves intact, Alert, Oriented Psychiatric: Affect appropriate, Mood appropriate Interpretation - Radiology Interpretation Radiology Interpretation By: Radiologist Radiology Results: No acute changes Physician Notification - Case Discussed Physician Notified: pmd Time of Notification: 15:00 (repeat ABG GIVE NARCAN ADMITT SCU) Critical Care Note - Critical Care Note Total Time (mins): 0 Course - Course Hematology/Chemistry: 11/03/16 13:10 11/03/16 13:10 Orders, Labs, Meds: Lab Review 11/03/16 11/03/16 11/03/16 13:10 13:13 14:35 WBC 12.28 H RBC 3.49 L Hgb 9.5 L Hct 30.0 L MCV 86.0 MCH 27.2 MCHC 31.7 L RDW Coeff of Tr 17.5 H Plt Count 180 Immature Gran % (Auto) 1.3 Neut % (Auto) 79.5 Lymph % (Auto) 10.0 [place] % (Auto) 8.3 Eos % (Auto) 0.8 Baso % (Auto) 0.1 Immature Gran # (Auto) 0.2 Neut # 9.8 H Lymph # 1.2 [place] # 1.0 Eos # 0.1 Baso # 0.0 Puncture Site R brach R rad O2 Saturation 69.0 L 96.0 ABG pH 7.32 L 7.259 L* ABG pCO2 68.0 H 83.5 H ABG pO2 41.0 L* 104.0 H ABG HCO3 35 H 37.4 H ABG Total CO2 37 H 40 H ABG Base Excess 9 H 10 H Miki Test + + O2 Delivery Device Nc Oxygen Liter Flow 2.00 FiO2 % 21.0 Sodium 136 Potassium 4.7 Chloride 93 L Carbon Dioxide 31 Anion Gap 16.7 BUN 8 Creatinine 0.76 Estimated GFR (MDRD) 75.00 BUN/Creatinine Ratio 10.52 Glucose 104 Calcium 8.6 Total Bilirubin 0.32 AST 40 H ALT 28 Alkaline Phosphatase 62 Total Creatine Kinase 39 Troponin I 0.1030 Total Protein 6.1 Albumin 3.4 Globulin 2.7 Albumin/Globulin Ratio 1.26 Salicylate Level mg/dL < 5.0 Acetaminophen 5 L Plasma/Serum Alcohol < 10.0 Orders Category Date Time Status ABG DRAW REQUEST Stat CARDIO 11/03/16 13:14 Completed ABG DRAW REQUEST Stat CARDIO 11/03/16 14:26 Ordered EKG-(ED ONLY) Stat CARDIO 11/03/16 13:01 Completed ABG Stat LAB 11/03/16 13:13 Completed ABG Stat LAB 11/03/16 14:26 Ordered ACETAMINOPHEN Stat LAB 11/03/16 13:10 Completed ALCOHOL LEVEL [BLOOD ALCOHOL] Stat LAB 11/03/16 13:10 Completed CBC W/ AUTO DIFF Stat LAB 11/03/16 13:10 Completed COMPREHENSIVE METABOLIC PANEL Stat LAB 11/03/16 13:10 Completed CREATINE KINASE Stat LAB 11/03/16 13:10 Completed SALICYLATE Stat LAB 11/03/16 13:10 Completed TROPONIN I Stat LAB 11/03/16 13:10 Completed URINALYSIS C & S IF INDICATED Stat LAB 11/03/16 13:13 Uncollected URINE DRUG SCREEN (RAPID FOR ED) [DRUG SCREEN, URINE, LAB 11/03/16 13:14 Uncollected RAPID] Stat Naloxone HCl [Narcan] MEDS 11/03/16 14:58 Stat 0.4 mg IVP ONCE STA CHEST, 1V AP ONLY Stat RADS 11/03/16 13:[address] ABDOMEN/PELVIS WO CONTRAST Stat RADS 11/03/16 13:[address] HEAD W/O CONTRAST Stat RADS 11/03/16 13:16 Completed Medications Discontinued Medications Generic Name Dose Route Start Last Admin Trade Name Freq PRN Reason Stop Dose Admin Naloxone HCl 0.4 mg 11/03/16 14:58 Narcan IVP 11/03/16 14:59 ONCE STA Vital Signs: Temp Pulse Resp BP Pulse Ox 11/03/16 12:46 96.4 F L 89 16 134/58 L 82 L Departure - Departure Time of Disposition: 15:01 Disposition: ADMITTED INPATIENT Discharge Problem: Altered mental status, COPD exacerbation Instructions: COPD (Chronic Obstructive Pulmonary Disease) (ED) Condition: Good Pt referred to PMD for follow-up: Yes (ADMITT) Additional Instructions: Please call your Family Physician as soon as possible to schedule a follow-up appointment. Allergies/Adverse Reactions: Allergies No Known Allergies Allergy (Verified 10/19/16 22:25) Home Medications: Ambulatory Orders Cilostazol [Pletal] 100 mg PO BIDAC 12/09/12 Cyanocobalamin (Vitamin B-12) [B-12] 500 mcg PO DAILY 12/09/12 Potassium Chloride [Micro-K Cap] 5 meq PO DAILYWM 12/09/12 Roflumilast [Daliresp] 500 mcg PO DAILY 03/29/15 Ferrous Gluconate 324 mg PO BID 06/17/15 Hydrocodone Bit/Acetaminophen [[place] 10-325] 1 each PO TID PRN 06/17/15 Duloxetine HCl [Cymbalta] 60 mg PO DAILY 06/18/15 Rosuvastatin Calcium [Crestor] 20 mg PO BEDTIME 12/27/15 Alprazolam [Xanax] 0.25 mg PO BID 05/27/16 Arformoterol Tartrate [[place]] 1 vial IH Q12H PRN 05/27/16 Aspirin 81 mg PO DAILY 05/27/16 Carvedilol [Coreg] 25 mg PO BID 05/27/16 Cholecalciferol (Vitamin D3) [Vitamin D3] 400 unit PO DAILY 05/27/16 Clopidogrel Bisulfate [Plavix] 75 mg PO DAILY 05/27/16 Escitalopram Oxalate [Lexapro] 10 mg PO DAILY 05/27/16 Hydralazine HCl 100 mg PO BID 05/27/16 Triamterene/Hydrochlorothiazid [Dyazide] 1 cap PO DAILY 05/27/16 Pregabalin [Lyrica] 50 mg PO BID #60 capsule 06/01/16 Beclomethasone Dipropionate [Qvar] 80 mcg IH DAILY 06/04/16 Tiotropium Br/Olodaterol HCl [Stiolto Respimat Inhal [place]] 2.5 mcg IH DAILY 07/03 Cephalexin [Keflex] 500 mg PO TID #21 capsule 10/22/16 Prednisone 10 mg PO DAILY #35 tablet 10/22/16
[2016-11-03] MEDS ORDERED: NARCAN IVP STA (14:58)
[2016-11-03] MEDS ORDERED: ROMAZICON IVP STA (15:05)
[2016-11-03] MEDS ORDERED: SOLU-MEDROL 125 MG IVP STA (15:07)
[2016-11-03] MEDS ORDERED: TORADOL IVP STA (15:26)
[2016-11-03] MEDS: SODIUM CHLORIDE 1,000 ML IV SCH (15:50)
[2016-11-03] MEDS: APRESOLINE PO SCH ×3 (16:06→20:57)
[2016-11-03 17:00] LABS: ADD URINE MICROSCOPIC NO; BILIRUBIN,URINE Negative (NEGATIVE); KETONES,URINE Negative (NEGATIVE); LEUKOCYTE ESTERASE ,URINE Negative (NEGATIVE); NITRITE,URINE Negative (NEGATIVE); PROTEIN,URINE Negative (NEGATIVE); URINE, BLOOD Negative (NEGATIVE)
[2016-11-03 17:08] LABS: COCAIN SCREEN,URINE NEGATIVE (NEGATIVE)
[2016-11-03 17:46] VITALS: BMI 20.2
[2016-11-03 20:28] LABS: ABG BASE EXCESS 12 (-2.0-2.0); ABG HCO3 35.9 (22.0-26.0); ABG PCO2 53.8 mmHg (35-45); ABG PH 7.433 (7.35-7.45); ABG TCO2 38 (22.0-28.0)
[2016-11-03] MEDS: TORADOL IVP SCH (20:31)
[2016-11-03] MEDS: PLETAL PO SCH (20:56)
[2016-11-03] MEDS: COREG PO SCH (20:56)
[2016-11-03] MEDS: KEFLEX PO SCH (20:57)
[2016-11-03] MEDS ORDERED: NON-FORMULARY MEDICATION (Hydralazine Hcl [Hydralazine Hcl] 100 MG) PO SCH (21:00)
[2016-11-03] MEDS ORDERED: NON-FORMULARY MEDICATION (Carvedilol [Coreg] 25 MG) PO SCH ×22 (21:00)
[2016-11-03] MEDS: CRESTOR PO SCH (21:06)
[2016-11-03] MEDS: FLONASE NAS SCH (21:06)
[2016-11-03] MEDS: SOLU-MEDROL 125 MG IVP SCH (21:07)
[2016-11-03 21:52] LABS: TROPONIN I 0.057 ng/ml (0.0000-0.4000)
[2016-11-04] MEDS: SODIUM CHLORIDE 1,000 ML IV SCH ×2 (03:57→16:15)
[2016-11-04 04:47] LABS: BASOPHILS % (AUTO) 0.1 % (0.0-3.0); HEMATOCRIT 26.3 % (37.0-47.0); HEMOGLOBIN 8.8 g/dl (12.0-16.0); IMMATURE GRANULOCYTE % (AUTO) 0.6 % (0.0-5.0); LYMPHOCYTES # (AUTO) 0.7 K/uL (0.60-3.4); LYMPHOCYTES % (AUTO) 10.6 (10.0-50.0); MEAN CORPUSCULAR HEMOGLOBIN 27.4 pg (27.0-31.0); MEAN CORPUSCULAR HGB CONC 33.5 (31.8-35.4); MEAN CORPUSCULAR VOLUME 81.9 fl (81.0-99.0); MONOCYTES # (AUTO) 0.1 K/uL (0.4-2.0); NEUTROPHILS % (AUTO) 87.7; PLATELET COUNT 147 10^3/uL (140-440); RED BLOOD COUNT 3.21 10^6/ul (4.20-5.40); WHITE BLOOD COUNT 6.89 K/ul (4.6-10.2)
[2016-11-04 05:13] LABS: ALBUMIN 3.1 g/dL (3.4-5.0); ALBUMIN/GLOBULIN RATIO 1.29; ANION GAP 17.7; BILIRUBIN,TOTAL 0.5 mg/dL (0.00-1.20); BUN/CREATININE RATIO 15.58; CALCIUM 8.4 mg/dL (8.2-10.2); CREATININE 0.77 mg/dL (0.60-1.30); POTASSIUM 3.7 mmol/L (3.5-5.10); TOTAL PROTEIN 5.5 g/dL (5.8-8.1)
[2016-11-04 05:17] LABS: TROPONIN I 0.045 ng/ml (0.0000-0.4000)
[2016-11-04 05:30] LABS: ABG BASE EXCESS 7 (-2.0-2.0); ABG HCO3 31.3 (22.0-26.0); ABG PCO2 46.5 mmHg (35-45); ABG PH 7.437 (7.35-7.45); ABG TCO2 33 (22.0-28.0)
[2016-11-04] MEDS: TORADOL IVP SCH ×3 (05:30→20:53)
[2016-11-04] MEDS: PLETAL PO SCH ×2 (05:43→16:32)
[2016-11-04] MEDS ORDERED: MICRO-K CAP PO SCH (08:00)
--- NOTE | 2016-11-04 09:16 | PCM.PROG ---
Attending Provider: ATTENDING PROVIDER: Dr. SIDDHARTHA BRITO DATE OF SERVICE: 11/04/16 SUBJECTIVE: This 71 year old WHITE/ F was hospitalized 11/03/16. The patient is hospitalized with acute respiratory failure, c02 narcosis likely from medication effect. The patient was given Narcan and became more alert this morning and is feeling better. Arterial blood gases - p02 89, pc02 46% with oxygen saturation of 94%. No distress, quiet with no complaints. REVIEW OF SYSTEMS: (NEGATIVE AT REST) CONSTITUTIONAL: No night sweats. No fatigue, malaise, lethargy. No fever or chills. HEENT: Eyes: No visual changes. No eye pain. No eye discharge. ENT: No runny nose. No epistaxis. No sinus pain. No odynophagia. No congestion. RESPIRATORY: No cough, no congestion. No hemoptysis. CARDIOVASCULAR: No angina symptoms. No CHF symptoms. No atypical chest pain for CAD. No palpitations. No shortness of breath. GASTROINTESTINAL: No abdominal pain. No nausea or vomiting. No diarrhea or constipation. No hematemesis. No hematochezia. GENITOURINARY: No urgency. No frequency. No dysuria. No hematuria. No obstructive symptoms. No discharge. No pain. No significant abnormal bleeding. MUSCULOSKELETAL: No musculoskeletal pain; no joint swelling. NEUROLOGICAL: Sleepy but alert, oriented to time, place and person. No headache. No neck pain. No syncope. No seizures. No dizziness. PSYCHIATRIC: Not anxious. No depression. No suicidal thoughts. No homicidal thoughts. SKIN: No rash. No lesions. No wounds. ENDOCRINE: No unexplained weight loss. No weight gain. HEMATOLOGIC/LYMPHATIC: No anemia. No purpura. No petechiae. No prolonged or excessive bleeding. No palpable lymph nodes. PHYSICAL EXAMINATION: GENERAL: The patient is sleepy, alert and oriented, lying in bed in no distress. VITAL SIGNS: Temperature 97.2 F, Pulse 93, Respiratory Rate 16, BP 157/109, Pulse Ox 97% HEENT: Head normocephalic, atraumatic. Eyes: Extraocular muscles are intact. Pupils are equal, round and reactive to light and accommodation. Ears: No lesions. Nose appeared normal. Throat: No exudate or erythema. NECK: Supple. No JVP, no carotid bruit. No lymphadenopathy or thyromegaly. LUNGS: Decreased breath sounds. No wheeze. Clear to auscultation. Percussion note normal. Chest symmetrical. HEART: S1, S2, no S3. No murmurs. No cyanosis or clubbing. No ascites. Pulses: Dorsalis pedis and posterior tibial pulses +1 to +2 both sides. ABDOMEN: Soft. Non-tender. Bowel sounds active. No CVA tenderness. No mass felt. EXTREMITIES: No pedal edema. Full range of motion of all extremities, equal. NEUROLOGIC: No focal deficit. Cranial nerves II through XII are grossly intact. No headache, no double vision or headache. SKIN: Not dry. Intact. Turgor-normal. LYMPHATIC: No palpable lymph nodes/no lymphedema. MUSCULOSKELETAL: Normal joints with no swelling. Muscle tone is normal. LAB REVIEW: 11/04/16 04:45 11/04/16 04:45 11/04/16 04:48: Puncture Site Lr, O2 Saturation 97.0, ABG pH 7.437, ABG pCO2 46.5 H, ABG pO2 89.0, ABG HCO3 31.3 H, ABG Total CO2 33 H, ABG Base Excess 7 H, Miki Test +, O2 Delivery Device Nc, Oxygen Liter Flow 3.00, FiO2 % 32.0 11/04/16 04:45: WBC 6.89 D, RBC 3.21 L, Hgb 8.8 L, Hct 26.3 L, MCV 81.9, MCH 27.4, MCHC 33.5, RDW Coeff of Tr 17.1 H, Plt Count 147, Immature Gran % (Auto) 0.6, Neut % (Auto) 87.7, Lymph % (Auto) 10.6, [place] % (Auto) 1.0, Eos % (Auto) 0.0, Baso % (Auto) 0.1, Immature Gran # (Auto) 0.0, Neut # 6.0, Lymph # 0.7, [place] # 0.1 L, Eos # 0.0, Baso # 0.0, Sodium 135 L, Potassium 3.7, Chloride 94 L , Carbon Dioxide 27, Anion Gap 17.7, BUN 12, Creatinine 0.77, Estimated GFR ( MDRD) 74.00, BUN/Creatinine Ratio 15.58, Glucose 138 H, Calcium 8.4, Total Bilirubin 0.50, AST 16, ALT 21, Alkaline Phosphatase 56, Total Creatine Kinase 30, Troponin I 0.0450, Total Protein 5.5 L, Albumin 3.1 L, Globulin 2.4, Albumin /Globulin Ratio 1.29 11/03/16 21:15: Total Creatine Kinase 32, Troponin I 0.0570 11/03/16 19:58: Puncture Site Lb, O2 Saturation 95.0, ABG pH 7.433, ABG pCO2 53.8 H, ABG pO2 76.0 L, ABG HCO3 35.9 H, ABG Total CO2 38 H, ABG Base Excess 12 H, Miki Test +, O2 Delivery Device Nc, Oxygen Liter Flow 3.00, FiO2 % 32.0 11/03/16 16:50: Urine Color Yellow, Urine Clarity Clear, Urine pH 6.0, Ur Specific [place] 1.020, Urine Protein Negative, Urine Glucose (UA) Negative, Urine Ketones Negative, Urine Blood Negative, Urine Nitrite Negative, Urine Bilirubin Negative, Urine Urobilinogen 0.2, Ur Leukocyte Esterase Negative, Urine Opiates Screen Positive, Ur Oxycodone Screen Negative, Urine Methadone Screen Negative, Ur Propoxyphene Screen Negative, Ur Barbiturates Screen Negative, U Tricyclic Antidepress Negative, Ur Phencyclidine Scrn Negative, Ur Amphetamine Screen Negative, U Methamphetamines Scrn Negative, U Benzodiazepines Scrn Positive, Urine Cocaine Screen Negative, U Cannabinoids Screen Negative ASSESSMENT: 1. RESPIRATORY FAILURE, CHRONIC. 2. HYPERCAPNIA, SEEMS TO HAVE RESOLVED. PLAN: 1. Will use Toradol for pain. 2. Counseling for smoking done. 3. Will take the patient off all pain medication except for Toradol. 4. Continue nebs and add steroids. 5. 02 decreased to 2L. Plan and coordination of the patient's care discussed in the presence of Customer Trainer and nurse. EDUCATION: Counseling for smoking done. CONDITION: Stable PROGNOSIS: Guarded SCRIBED BY: Angelica WALLACEist scribed while in presence of service performed by Dr. SIDDHARTHA BRITO on 11/04/16 ([id number])
--- NOTE | 2016-11-04 09:25 | HP ---
DATE OF SERVICE: 11/03/16 ADDENDUM REASON FOR HOSPITALIZATION/HISTORY OF PRESENT ILLNESS: The patient is a 71 year old white female was brought to the emergency room by the because she was drowsy, weak and somewhat confused. The patient was seen and examined in the emergency room by ER attending. Had ABG done with pO2 41, pCO2 68, pH 7.32 on room air with 69% saturation. The patient was breathing shallow and she was drowsy but she could be aroused and was answering questions appropriately. The patient's ABG were done with 2 liters with pO2 104, pCO2 83 with pH 7.25 and saturation was 96%. At this point the patient was given Narcan and the patient woke up and was alert when I examined the patient in the Emergency Room. was present. It was obvious that patient had taken more Ririe the pain pills.Her Salicylate and Acetaminophen level were low. Alcohol blood was less than 10. Her other labs creatinine 0.7, BUN 8, potassium 4.7. Cardiac markers are negative. Hgb 9.5, hct 30, WBC 12,[address] scan of the head normal. CT of the abdomen and pelvis nonspecific mesenteric edema, emphysema and extensive atherosclerosis, aortic iliac stent. Chest x-ray bronchiolitis versus reactive airways changes. REVIEW OF SYSTEMS: CONSTITUTIONAL: No night sweats. No fatigue, malaise, lethargy. No fever or chills. Drowsy. HEENT: Eyes: No visual changes. No eye pain. No eye discharge. ENT: No runny nose. No epistaxis. No sinus pain. No sore throat. No odynophagia. No ear pain. No congestion. RESPIRATORY: No cough, no congestion. No hemoptysis. CARDIOVASCULAR: No angina symptoms. No CHF symptoms. No atypical chest pain for CAD. No palpitations. No shortness of breath. No PND. No Orthopnea. GASTROINTESTINAL: No abdominal pain. No nausea or vomiting. No diarrhea or constipation. No hematemesis. No hematochezia. Poor appetite for past couple of days. GENITOURINARY: No urgency. No frequency. No dysuria. No hematuria. No obstructive symptoms. No discharge. No pain. No significant abnormal bleeding. MUSCULOSKELETAL: No musculoskeletal pain. No joint swelling. No arthritis. Complained of pain, arthritis type. NEUROLOGICAL: No headache. No neck pain. No syncope. No seizures. No dizziness. PSYCHIATRIC: Not anxious. No depression. No suicidal thoughts. No homicidal thoughts. SKIN: No rash. No lesions. No wounds. ENDOCRINE: No unexplained weight loss. No weight gain. HEMATOLOGIC/LYMPHATIC: No anemia. No purpura. No petechiae. No prolonged or excessive bleeding. No palpable lymph nodes. PHYSICAL EXAMINATION: HEENT: Head normocephalic, atraumatic. Eyes: Extraocular muscles are intact. Pupils are equal, round and reactive to light and accommodation. Ears: No lesions. Nose appeared normal. Throat: No exudate or erythema. NECK: Supple. No JVP, no carotid bruit. No lymphadenopathy or thyromegaly. LUNGS: Decreased breath sounds but clear to auscultation. Percussion note normal. Chest symmetrical. HEART: S1, S2, no S3. No murmurs. No cyanosis or clubbing. No ascites. Pulses: Dorsalis pedis and posterior tibial pulses +1 to +2 both sides. ABDOMEN: Soft. Nontender. Bowel sounds active. No CVA tenderness. No mass felt. EXTREMITIES: No edema. Full range of motion of all extremities, equal. NEUROLOGIC: No focal deficit. Cranial nerves II through XII are grossly intact. No headache, no double vision or headache. SKIN: Not dry. Intact. Turgor - normal. LYMPHATIC: No palpable lymph nodes/no lymphedema. MUSCULOSKELETAL: Normal joints with no swelling. Muscle tone is normal. ASSESSMENT: 1. Acute respiratory failure with CO2 retention pain medication induced. 2. Non-compliance 3. Continued smoking with severe chronic lung disease 4. Aortic iliac stent with peripheral arterial disease 5. Hypertension PLAN: 1. Admit patient 2. Telemetry 3. Cardiac Markers 4. Monitor arterial blood gasses 5. The patient declined BIPAP 6. 1.5 Liters cannula per minute 7. Toradol 30mg IV for pain 8. Solu-Medrol 125mg Q 8 hours 9. Continue NEBS treatment as ordered 10.The patient wants CPR but no intubation 11.Counseling for smoking done. CONDITION: Stable PROGNOSIS: Poor TIME SPENT: More than 70 minutes. MTDD
[2016-11-04] MEDS: KLOR-CON 8 MEQ PO SCH (10:49)
[2016-11-04] MEDS: COREG PO SCH ×2 (10:49→16:32)
[2016-11-04] MEDS: APRESOLINE PO SCH ×2 (10:49→20:50)
[2016-11-04] MEDS: DYAZIDE PO SCH (10:50)
[2016-11-04] MEDS: DALIRESP PO SCH (10:50)
[2016-11-04] MEDS: SOLU-MEDROL 125 MG IVP SCH ×2 (10:51→20:52)
[2016-11-04] MEDS: KEFLEX PO SCH ×3 (10:51→20:49)
[2016-11-04] MEDS: PLAVIX PO SCH (10:51)
[2016-11-04] MEDS: FLONASE NAS SCH ×2 (10:51→20:50)
[2016-11-04] MEDS: BECLOMETHASONE DIPROPIONATE 80 MCG IH SCH (10:59)
[2016-11-04] MEDS: XOPENEX 1.25 MG NEB SCH ×3 (11:12→23:40)
[2016-11-04] MEDS: CRESTOR PO SCH (20:49)
[2016-11-04] MEDS ORDERED: DUONEB NEB PRN (21:46)
[2016-11-04] MEDS ORDERED: ATROVENT 0.02% NEB NEB PRN (21:46)
[2016-11-05] MEDS: TORADOL IVP SCH ×3 (04:32→21:23)
[2016-11-05] MEDS: SODIUM CHLORIDE 1,000 ML IV SCH ×2 (04:32→17:26)
[2016-11-05 04:48] LABS: HEMOGLOBIN 9.2 g/dl (12.0-16.0); IMMATURE GRANULOCYTE % (AUTO) 1.1 % (0.0-5.0); LYMPHOCYTES # (AUTO) 0.7 K/uL (0.60-3.4); LYMPHOCYTES % (AUTO) 8.2 (10.0-50.0); MEAN CORPUSCULAR HEMOGLOBIN 27.1 pg (27.0-31.0); MEAN CORPUSCULAR HGB CONC 34.1 (31.8-35.4); MEAN CORPUSCULAR VOLUME 79.6 fl (81.0-99.0); MONOCYTES # (AUTO) 0.4 K/uL (0.4-2.0); MONOCYTES % (AUTO) 4.2 (0-10); NEUTROPHILS # (AUTO) 7.6 K/ul (2.0-6.9); NEUTROPHILS % (AUTO) 86.5; PLATELET COUNT 133 10^3/uL (140-440); RED BLOOD COUNT 3.39 10^6/ul (4.20-5.40); WHITE BLOOD COUNT 8.76 K/ul (4.6-10.2)
[2016-11-05 05:10] LABS: ALBUMIN 3.5 g/dL (3.4-5.0); ALBUMIN/GLOBULIN RATIO 1.35; ANION GAP 18.9; BILIRUBIN,TOTAL 0.67 mg/dL (0.00-1.20); BUN/CREATININE RATIO 16.88; CALCIUM 8.8 mg/dL (8.2-10.2); CREATININE 0.77 mg/dL (0.60-1.30); POTASSIUM 2.9 mmol/L (3.5-5.10); TOTAL PROTEIN 6.1 g/dL (5.8-8.1)
[2016-11-05] MEDS: XOPENEX 1.25 MG NEB SCH ×4 (05:13→23:12)
[2016-11-05] MEDS: COREG PO SCH ×3 (05:44→18:02)
[2016-11-05] MEDS: APRESOLINE PO SCH ×3 (05:44→20:20)
[2016-11-05] MEDS: DYAZIDE PO SCH ×2 (05:45→09:06)
[2016-11-05] MEDS: PLETAL PO SCH ×2 (05:45→16:32)
[2016-11-05] MEDS ORDERED: XANAX PO STA (06:27)
[2016-11-05] MEDS ORDERED: ATIVAN IVP STA (07:32)
[2016-11-05] MEDS: FLONASE NAS SCH ×2 (09:06→20:19)
[2016-11-05] MEDS: PLAVIX PO SCH (09:06)
[2016-11-05] MEDS: DALIRESP PO SCH (09:06)
[2016-11-05] MEDS: BECLOMETHASONE DIPROPIONATE 80 MCG IH SCH (09:07)
[2016-11-05] MEDS: SOLU-MEDROL 125 MG IVP SCH ×2 (09:08→21:23)
[2016-11-05] MEDS: KLOR-CON 8 MEQ PO SCH (09:59)
[2016-11-05] MEDS: KEFLEX PO SCH (09:59)
[2016-11-05] MEDS: ATIVAN IVP PRN ×2 (10:47→14:26)
[2016-11-05] MEDS: VASOTEC IV IVP PRN (12:11)
--- NOTE | 2016-11-05 13:06 | PCM.PROG ---
Attending Provider: ATTENDING PROVIDER: Dr. SIDDHARTHA BRITO DATE OF SERVICE: 11/05/16 SUBJECTIVE: This 71 year old WHITE/ F was hospitalized 11/03/16. The patient is seen with Rupal, Nurse Practitioner. She is lying in bed resting this morning , She has been very restless and agitated, improved after Ativan. She did not sleep last night. REVIEW OF SYSTEMS: CONSTITUTIONAL: No night sweats. No fatigue, malaise, lethargy. No fever or chills. HEENT: Eyes: No visual changes. No eye pain. No eye discharge. ENT: No runny nose. No epistaxis. No sinus pain. No odynophagia. No congestion. RESPIRATORY: No cough, no congestion. No hemoptysis. CARDIOVASCULAR: No angina symptoms. No CHF symptoms. No atypical chest pain for CAD. No palpitations. No shortness of breath. GASTROINTESTINAL: No abdominal pain. No nausea or vomiting. No diarrhea or constipation. No hematemesis. No hematochezia. GENITOURINARY: No urgency. No frequency. No dysuria. No hematuria. No obstructive symptoms. No discharge. No pain. No significant abnormal bleeding. MUSCULOSKELETAL: No musculoskeletal pain; no joint swelling. NEUROLOGICAL: Sleeping. No headache. No neck pain. No syncope. No seizures. No dizziness. PSYCHIATRIC: Agitated this morning, sleeping during visit. No depression. No suicidal thoughts. No homicidal thoughts. SKIN: No rash. No lesions. No wounds. ENDOCRINE: No unexplained weight loss. No weight gain. HEMATOLOGIC/LYMPHATIC: No anemia. No purpura. No petechiae. No prolonged or excessive bleeding. No palpable lymph nodes. PHYSICAL EXAMINATION: GENERAL: The patient is sleeping in bed in no distress. VITAL SIGNS: Temperature 98.0 F, Pulse 118, Respiratory Rate 26, BP 188/76, Pulse Ox 93% HEENT: Head normocephalic, atraumatic. Eyes: Extraocular muscles are intact. Pupils are equal, round and reactive to light and accommodation. Ears: No lesions. Nose appeared normal. Throat: No exudate or erythema. NECK: Supple. No JVD, no carotid bruit. No lymphadenopathy or thyromegaly. LUNGS: Diminished breath sounds bilaterally. Percussion note normal. Chest symmetrical. HEART: S1, S2, no S3. No murmurs. No cyanosis or clubbing. No ascites. Pulses: Dorsalis pedis and posterior tibial pulses +1 to +2 both sides. ABDOMEN: Soft. Non-tender. Bowel sounds active. No CVA tenderness. No mass felt. EXTREMITIES: No edema. Full range of motion of all extremities, equal. NEUROLOGIC: No focal deficit. Cranial nerves II through XII are grossly intact. No headache, no double vision or headache. SKIN: Not dry. Intact. Turgor-normal. LYMPHATIC: No palpable lymph nodes/no lymphedema. MUSCULOSKELETAL: Normal joints with no swelling. Muscle tone is normal. LAB REVIEW: 11/05/16 04:15 11/05/16 04:15 11/05/16 04:15: WBC 8.76, RBC 3.39 L, Hgb 9.2 L, Hct 27.0 L, MCV 79.6 L, MCH 27.1, MCHC 34.1, RDW Coeff of Tr 17.2 H, Plt Count 133 L, Immature Gran % (Auto ) 1.1, Neut % (Auto) 86.5, Lymph % (Auto) 8.2 L, [place] % (Auto) 4.2, Eos % (Auto ) 0.0, Baso % (Auto) 0.0, Immature Gran # (Auto) 0.1, Neut # 7.6 H, Lymph # 0.7 , [place] # 0.4, Eos # 0.0, Baso # 0.0, Sodium 139, Potassium 2.9 L, Chloride 95 L , Carbon Dioxide 28, Anion Gap 18.9, BUN 13, Creatinine 0.77, Estimated GFR ( MDRD) 74.00, BUN/Creatinine Ratio 16.88, Glucose 142 H, Calcium 8.8, Total Bilirubin 0.67, AST 20, ALT 24, Alkaline Phosphatase 62, Total Protein 6.1, Albumin 3.5, Globulin 2.6, Albumin/Globulin Ratio 1.35 ASSESSMENT: 1. RESPIRATORY FAILURE, CHRONIC. 2. HYPERCAPNIA, SEEMS TO HAVE RESOLVED. PLAN: 1. K-tab 20 mEq q.i.d. 2. Stop Keflex 3. Will continue to monitor closely due to medication changes Plan and coordination of the patient's care discussed in the presence of Plumber Maintenance and nurse. CONDITION: Stable SCRIBED BY: KENISHA FRY Brand Ambassador scribed while in presence of service performed by Dr. SIDDHARTHA BRITO on 11/05/16 ([id number])
[2016-11-05] MEDS: K-DUR PO SCH ×3 (14:22→20:20)
[2016-11-05] MEDS: CATAPRES PO PRN (15:12)
[2016-11-05] MEDS ORDERED: APRESOLINE PO STA (16:16)
[2016-11-05] MEDS ORDERED: LOPRESSOR IVP STA (16:17)
[2016-11-05] MEDS: LEXAPRO PO SCH (16:27)
[2016-11-05] MEDS: CYMBALTA PO SCH (16:28)
[2016-11-05] MEDS ORDERED: NON-FORMULARY MEDICATION (Duloxetine Hcl [Cymbalta] 60 MG) PO SCH ×22 (16:30)
[2016-11-05] MEDS ORDERED: VASOTEC IV IVP STA (18:03)
[2016-11-05] MEDS: CRESTOR PO SCH (20:19)
[2016-11-06] MEDS: VASOTEC IV IVP PRN (00:29)
[2016-11-06 04:32] LABS: HEMATOCRIT 28.6 % (37.0-47.0); HEMOGLOBIN 9.8 g/dl (12.0-16.0); IMMATURE GRANULOCYTE % (AUTO) 1.2 % (0.0-5.0); LYMPHOCYTES # (AUTO) 0.6 K/uL (0.60-3.4); MEAN CORPUSCULAR HEMOGLOBIN 27.3 pg (27.0-31.0); MEAN CORPUSCULAR HGB CONC 34.3 (31.8-35.4); MEAN CORPUSCULAR VOLUME 79.7 fl (81.0-99.0); MONOCYTES # (AUTO) 0.4 K/uL (0.4-2.0); MONOCYTES % (AUTO) 3.9 (0-10); NEUTROPHILS # (AUTO) 7.8 K/ul (2.0-6.9); NEUTROPHILS % (AUTO) 87.9; PLATELET COUNT 125 10^3/uL (140-440); RED BLOOD COUNT 3.59 10^6/ul (4.20-5.40); WHITE BLOOD COUNT 8.91 K/ul (4.6-10.2)
[2016-11-06 04:50] LABS: ALBUMIN 3.6 g/dL (3.4-5.0); ALBUMIN/GLOBULIN RATIO 1.33; ANION GAP 18.2; BILIRUBIN,TOTAL 0.84 mg/dL (0.00-1.20); BUN/CREATININE RATIO 17.72; CALCIUM 8.5 mg/dL (8.2-10.2); CREATININE 0.79 mg/dL (0.60-1.30); POTASSIUM 3.2 mmol/L (3.5-5.10); TOTAL PROTEIN 6.3 g/dL (5.8-8.1)
[2016-11-06] MEDS: TORADOL IVP SCH ×3 (04:58→20:59)
[2016-11-06] MEDS: XOPENEX 1.25 MG NEB SCH ×4 (05:35→23:11)
[2016-11-06] MEDS: PLETAL PO SCH ×2 (06:04→16:34)
[2016-11-06] MEDS: SODIUM CHLORIDE 1,000 ML IV SCH ×2 (06:05→21:39)
[2016-11-06] MEDS: CATAPRES PO PRN (06:08)
[2016-11-06] MEDS: FLONASE NAS SCH ×2 (08:39→20:13)
[2016-11-06] MEDS: LEXAPRO PO SCH (08:40)
[2016-11-06] MEDS: PLAVIX PO SCH (08:40)
[2016-11-06] MEDS: DALIRESP PO SCH (08:40)
[2016-11-06] MEDS: K-DUR PO SCH ×4 (08:40→20:13)
[2016-11-06] MEDS: CYMBALTA PO SCH (08:40)
[2016-11-06] MEDS: APRESOLINE PO SCH ×2 (08:40→20:13)
[2016-11-06] MEDS: BECLOMETHASONE DIPROPIONATE 80 MCG IH SCH (08:41)
[2016-11-06] MEDS: COREG PO SCH ×2 (08:41→16:34)
[2016-11-06] MEDS: SOLU-MEDROL 125 MG IVP SCH ×2 (08:43→21:00)
--- NOTE | 2016-11-06 08:48 | PN ---
DATE OF SERVICE: 11/05/16 SUBJECTIVE: The patient is a 71 year old white female hospitalized with respiratory failure. The patient's blood gasses have improved. Oxygen saturation is 93% on 2 liters. She is very restless and requires Ativan IV to calm her down. Her blood pressure goes up and then she gets really anxious. The patient likely has withdraws REVIEW OF SYSTEMS: CONSTITUTIONAL: No night sweats. No fatigue, malaise, lethargy. No fever or chills. HEENT: Eyes: No visual changes. No eye pain. No eye discharge. ENT: No runny nose. No epistaxis. No sinus pain. No sore throat. No odynophagia. No congestion. RESPIRATORY: No cough, no congestion. No hemoptysis. CARDIOVASCULAR: No angina symptoms. No CHF symptoms. No atypical chest pain for CAD. No palpitations. No shortness of breath. GASTROINTESTINAL: No abdominal pain. No nausea or vomiting. No diarrhea or constipation. No hematemesis. No hematochezia. GENITOURINARY: No urgency. No frequency. No dysuria. No hematuria. No obstructive symptoms. No discharge. No pain. No significant abnormal bleeding. MUSCULOSKELETAL: No musculoskeletal pain; no joint swelling. NEUROLOGICAL: No headache. No neck pain. No syncope. No seizures. No dizziness. PSYCHIATRIC: Not anxious. No depression. No suicidal thoughts. No homicidal thoughts. SKIN: No rash. No lesions. No wounds. ENDOCRINE: No unexplained weight loss. No weight gain. HEMATOLOGIC/LYMPHATIC: No anemia. No purpura. No petechiae. No prolonged or excessive bleeding. No palpable lymph nodes. PHYSICAL EXAMINATION: HEENT: Head normocephalic, atraumatic. Eyes: Extraocular muscles are intact. Pupils are equal, round and reactive to light and accommodation. Ears: No lesions. Nose appeared normal. Throat: No exudate or erythema. NECK: Supple. No JVD, no carotid bruit. No lymphadenopathy or thyromegaly. LUNGS:Decreased breath sounds but Clear to auscultation. Percussion note normal. Chest symmetrical. HEART: S1, S2, no S3. No murmurs. No cyanosis or clubbing. No ascites. Pulses: Dorsalis pedis and posterior tibial pulses +1 to +2 both sides. ABDOMEN: Soft. Nontender. Bowel sounds active. No CVA tenderness. No mass felt. EXTREMITIES: No edema. Full range of motion of all extremities, equal. NEUROLOGIC: No focal deficit. Cranial nerves II through XII are grossly intact. No headache, no double vision or headache. SKIN: Not dry. Intact. Turgor - normal. LYMPHATIC: No palpable lymph nodes/no lymphedema. MUSCULOSKELETAL: Normal joints with no swelling. Muscle tone is normal. LABS: hgb 9.2, hct 27, potassium 2.9 ASSESSMENT: 1. Aggressive behavior/restlessness likely withdraw from Narcotics 2. COPD under control 3. Hypokalemia 4. Anemia PLAN: 1. Will give Potassium supplement 20meq four times a day 2. IV Ativan as needed 3. IV Vasotec as needed for hypertension which is related agitation 4. Strongly advised to stay in the hospital. The patient after Ativan seems to have calmed down and the blood pressure has come down. CONDITION: Stable TIME SPENT: More than 30 minutes. Plan and coordination of the patient's care discussed in the presence of nurse. KEVIN
[2016-11-06 09:10] LABS: CREATINE KINASE MB 3.5 ng/ml (0.0-3.6)
--- NOTE | 2016-11-06 09:20 | PCM.PROG ---
Attending Provider: ATTENDING PROVIDER: Dr. SIDDHARTHA BRITO DATE OF SERVICE: 11/06/16 SUBJECTIVE: This 71 year old WHITE/ F was hospitalized 11/03/16. The patient is seen with Rupal, Nurse Practitioner. The patient is sleeping, lying in bed resting well at the moment. Blood pressure has remained elevated despite medications due to symptoms of withdrawal. REVIEW OF SYSTEMS: CONSTITUTIONAL: No night sweats. No fatigue, malaise, lethargy. No fever or chills. HEENT: Eyes: No visual changes. No eye pain. No eye discharge. ENT: No runny nose. No epistaxis. No sinus pain. No odynophagia. No congestion. RESPIRATORY: No cough, no congestion. No hemoptysis. CARDIOVASCULAR: No angina symptoms. No CHF symptoms. No atypical chest pain for CAD. No palpitations. No shortness of breath. GASTROINTESTINAL: No abdominal pain. No nausea or vomiting. No diarrhea or constipation. No hematemesis. No hematochezia. GENITOURINARY: No urgency. No frequency. No dysuria. No hematuria. No obstructive symptoms. No discharge. No pain. No significant abnormal bleeding. MUSCULOSKELETAL: No musculoskeletal pain; no joint swelling. NEUROLOGICAL: The patient is sleeping, resting. No headache. No neck pain. No syncope. No seizures. No dizziness. PSYCHIATRIC: Anxious; agitated. No depression. No suicidal thoughts. No homicidal thoughts. SKIN: No rash. No lesions. No wounds. ENDOCRINE: No unexplained weight loss. No weight gain. HEMATOLOGIC/LYMPHATIC: No anemia. No purpura. No petechiae. No prolonged or excessive bleeding. No palpable lymph nodes. PHYSICAL EXAMINATION: GENERAL: The patient is lying in bed sleeping in no distress. VITAL SIGNS: Temperature 98.2 F, Pulse 101, Respiratory Rate 22, BP 198/100, Pulse Ox 99% HEENT: Head normocephalic, atraumatic. Eyes: Extraocular muscles are intact. Pupils are equal, round and reactive to light and accommodation. Ears: No lesions. Nose appeared normal. Throat: No exudate or erythema. NECK: Supple. No JVD, no carotid bruit. No lymphadenopathy or thyromegaly. LUNGS: Diminished breath sounds bilaterally. Clear to auscultation. Percussion note normal. Chest symmetrical. HEART: S1, S2, no S3. No murmurs. No cyanosis or clubbing. No ascites. Pulses: Dorsalis pedis and posterior tibial pulses +1 to +2 both sides. ABDOMEN: Soft. Non-tender. Bowel sounds active. No CVA tenderness. No mass felt. EXTREMITIES: No edema. Full range of motion of all extremities, equal. NEUROLOGIC: No focal deficit. Cranial nerves II through XII are grossly intact. No headache, no double vision or headache. SKIN: Not dry. Intact. Turgor-normal. LYMPHATIC: No palpable lymph nodes/no lymphedema. MUSCULOSKELETAL: Normal joints with no swelling. Muscle tone is normal. LAB REVIEW: 11/06/16 04:20 11/06/16 04:20 11/06/16 04:20: WBC 8.91, RBC 3.59 L, Hgb 9.8 L, Hct 28.6 L, MCV 79.7 L, MCH 27.3, MCHC 34.3, RDW Coeff of Tr 17.4 H, Plt Count 125 L, Immature Gran % (Auto ) 1.2, Neut % (Auto) 87.9, Lymph % (Auto) 7.0 L, [place] % (Auto) 3.9, Eos % (Auto ) 0.0, Baso % (Auto) 0.0, Immature Gran # (Auto) 0.1, Neut # 7.8 H, Lymph # 0.6 , [place] # 0.4, Eos # 0.0, Baso # 0.0, Sodium 137, Potassium 3.2 L, Chloride 96 L , Carbon Dioxide 26, Anion Gap 18.2, BUN 14, Creatinine 0.79, Estimated GFR ( MDRD) 72.00, BUN/Creatinine Ratio 17.72, Glucose 135 H, Calcium 8.5, Total Bilirubin 0.84, AST 21, ALT 25, Alkaline Phosphatase 56, Total Protein 6.3, Albumin 3.6, Globulin 2.7, Albumin/Globulin Ratio 1.33 ASSESSMENT: 1. RESPIRATORY FAILURE, CHRONIC. 2. HYPERCAPNIA, SEEMS TO HAVE RESOLVED. 3. WITHDRAWAL FROM NARCOTICS. 4. HYPOKALEMIA. PLAN: 1. Continue to monitor 2. CKMB 3. Medication abuse discussed with 5. Continue IV KCL Plan and coordination of the patient's care discussed in the presence of Legal Transcriber and nurse. EDUCATION: Medication administration and abuse, risk of addiction with narcotics. CONDITION: Stable SCRIBED BY: KENISHA FRY, Deputy Controller scribed while in presence of service performed by Dr. SIDDHARTHA BRITO/RUPAL TRAN APRN on 11/06/16 ([id number])
--- NOTE | 2016-11-06 09:50 | PN ---
DATE OF SERVICE: 11/06/16 SUBJECTIVE: The patient was seen and examined with Nurse Practitioner. The patient has calmed down in the past three to four hours. The patient had withdraws likely from Narcotics. The patient's blood pressure is still fluctuating at high level. Last evening it was 146/78. Continue to use Clonidine, IV Vasotec and Beta blockers Coreg as prescribed. The patient's is in the room and explained about the strong possibility of Narcotic withdraws and advised to monitor the use of Narcotic which is going to be minimal. The patient has change in the EKG with no R waves. The patient has poor R-wave progression indicating anteroseptal wall, [place] or injury in recent time. Last EKG done during last hospitalization had good R-waves with FEV4. The no complaints of coronary insufficiency. At present time the patient's condition is not stable enough to do any echo. She had recent Sestamibi which was negative for irreversible ischemia. Look into this matter once the patient's condition is stable, we will be CK-MB. PHYSICAL EXAMINATION: HEENT: Head normocephalic, atraumatic. Eyes: Extraocular muscles are intact. Pupils are equal, round and reactive to light and accommodation. Ears: No lesions. Nose appeared normal. Throat: No exudate or erythema. NECK: Supple. No JVD, no carotid bruit. No lymphadenopathy or thyromegaly. LUNGS: Clear to auscultation. Percussion note normal. Chest symmetrical. HEART: S1, S2, no S3. No murmurs. No cyanosis or clubbing. No ascites. Pulses: Dorsalis pedis and posterior tibial pulses +1 to +2 both sides. ABDOMEN: Soft. Nontender. Bowel sounds active. No CVA tenderness. No mass felt. EXTREMITIES: No edema. Full range of motion of all extremities, equal. NEUROLOGIC: No focal deficit. Cranial nerves II through XII are grossly intact. No headache, no double vision or headache. SKIN: Not dry. Intact. Turgor - normal. LYMPHATIC: No palpable lymph nodes/no lymphedema. MUSCULOSKELETAL: Normal joints with no swelling. Muscle tone is normal. TIME SPENT: More than 30 minutes. Plan and coordination of the patient's care discussed in the presence of nurse. KEVIN
[2016-11-06] MEDS: CRESTOR PO SCH (20:13)
[2016-11-07] MEDS: TORADOL IVP SCH ×3 (04:51→20:23)
[2016-11-07] MEDS: XOPENEX 1.25 MG NEB SCH ×4 (05:01→23:27)
[2016-11-07 05:08] LABS: HEMATOCRIT 28.9 % (37.0-47.0); HEMOGLOBIN 9.6 g/dl (12.0-16.0); IMMATURE GRANULOCYTE % (AUTO) 0.8 % (0.0-5.0); LYMPHOCYTES # (AUTO) 0.5 K/uL (0.60-3.4); LYMPHOCYTES % (AUTO) 8.5 (10.0-50.0); MEAN CORPUSCULAR HEMOGLOBIN 26.8 pg (27.0-31.0); MEAN CORPUSCULAR HGB CONC 33.2 (31.8-35.4); MEAN CORPUSCULAR VOLUME 80.7 fl (81.0-99.0); MONOCYTES # (AUTO) 0.3 K/uL (0.4-2.0); MONOCYTES % (AUTO) 4.6 (0-10); NEUTROPHILS # (AUTO) 5.3 K/ul (2.0-6.9); NEUTROPHILS % (AUTO) 86.1; PLATELET COUNT 112 10^3/uL (140-440); RED BLOOD COUNT 3.58 10^6/ul (4.20-5.40); WHITE BLOOD COUNT 6.15 K/ul (4.6-10.2)
[2016-11-07 05:28] LABS: ALBUMIN 3.3 g/dL (3.4-5.0); ALBUMIN/GLOBULIN RATIO 1.38; ANION GAP 16.2; BILIRUBIN,TOTAL 0.63 mg/dL (0.00-1.20); BUN/CREATININE RATIO 22.93; CALCIUM 8.3 mg/dL (8.2-10.2); CREATININE 1.09 mg/dL (0.60-1.30); POTASSIUM 4.2 mmol/L (3.5-5.10); TOTAL PROTEIN 5.7 g/dL (5.8-8.1)
[2016-11-07] MEDS: PLETAL PO SCH ×2 (05:33→16:53)
[2016-11-07] MEDS: ATIVAN IVP PRN (07:45)
[2016-11-07] MEDS: SOLU-MEDROL 125 MG IVP SCH (09:04)
[2016-11-07] MEDS: CYMBALTA PO SCH (09:05)
[2016-11-07] MEDS: FLONASE NAS SCH ×2 (09:05→20:24)
[2016-11-07] MEDS: LEXAPRO PO SCH (09:06)
[2016-11-07] MEDS: PLAVIX PO SCH (09:06)
[2016-11-07] MEDS: COREG PO SCH ×2 (09:06→16:53)
[2016-11-07] MEDS: K-DUR PO SCH ×4 (09:07→20:23)
[2016-11-07] MEDS: DALIRESP PO SCH (09:07)
[2016-11-07] MEDS: APRESOLINE PO SCH ×2 (09:07→20:23)
[2016-11-07] MEDS: SODIUM CHLORIDE 1,000 ML IV SCH (10:45)
[2016-11-07] MEDS: BECLOMETHASONE DIPROPIONATE 80 MCG IH SCH (11:43)
[2016-11-07] MEDS: CRESTOR PO SCH (20:23)
[2016-11-07] MEDS: PREDNISONE PO SCH (20:23)
[2016-11-08] MEDS: TORADOL IVP SCH ×3 (04:33→20:36)
[2016-11-08 04:52] LABS: HEMATOCRIT 28.5 % (37.0-47.0); HEMOGLOBIN 9.5 g/dl (12.0-16.0); IMMATURE GRANULOCYTE % (AUTO) 0.8 % (0.0-5.0); LYMPHOCYTES # (AUTO) 0.8 K/uL (0.60-3.4); LYMPHOCYTES % (AUTO) 9.8 (10.0-50.0); MEAN CORPUSCULAR HEMOGLOBIN 27.1 pg (27.0-31.0); MEAN CORPUSCULAR HGB CONC 33.3 (31.8-35.4); MEAN CORPUSCULAR VOLUME 81.2 fl (81.0-99.0); MONOCYTES # (AUTO) 0.6 K/uL (0.4-2.0); MONOCYTES % (AUTO) 7.2 (0-10); NEUTROPHILS # (AUTO) 6.9 K/ul (2.0-6.9); NEUTROPHILS % (AUTO) 82.2; PLATELET COUNT 105 10^3/uL (140-440); RED BLOOD COUNT 3.51 10^6/ul (4.20-5.40); WHITE BLOOD COUNT 8.44 K/ul (4.6-10.2)
[2016-11-08] MEDS: XOPENEX 1.25 MG NEB SCH ×4 (05:20→23:24)
[2016-11-08 05:21] LABS: ALBUMIN 3.2 g/dL (3.4-5.0); ALBUMIN/GLOBULIN RATIO 1.45; ANION GAP 15.1; BILIRUBIN,TOTAL 0.51 mg/dL (0.00-1.20); BUN/CREATININE RATIO 26.31; CALCIUM 8.8 mg/dL (8.2-10.2); CREATININE 1.14 mg/dL (0.60-1.30); POTASSIUM 5.1 mmol/L (3.5-5.10); TOTAL PROTEIN 5.4 g/dL (5.8-8.1)
[2016-11-08] MEDS: PLETAL PO SCH ×2 (05:38→17:23)
[2016-11-08] MEDS: SODIUM CHLORIDE 1,000 ML IV SCH (07:14)
--- NOTE | 2016-11-08 07:47 | ECHO2D ---
Date of Exam: 11/07/16 Ordering Physician: SIDDHARTHA BRITO Reason for Echo: ABNORMAL EKG, SHORTNESS OF BREATH M-Mode Normal Adult Results LV Dimensions Normal Adult Results AoV Opening excursions >1.6 >1.6 LVEDD-base- 3.5-5.8 4.8 Ao root dimensions 2.0-3.7 3.0 LVESD-base- 3.1-4.6 L. Atrium dimensions 1.9-3.8 4.2 Post. Wall thickness 0.8-1.1 1.2 IV septum (thickness) 0.7-1.2 1.4 Post. Wall excursion 0.72-1.3 0.5 Septal motion NORMAL Systolic motion R. Ventricular cavity 1.5-2.0 NORMAL LVEF 60% 53% Paradoxical septal wall motion NORMAL 2-D : ENLARGED LEFT ATRIAL CAVITY--CALCIFIC MITRAL VALVE ANNULUS, NO EFFUSION, NO THROMBUS, MILDLY HYPOKINETIC INFERIOR POST WALL, NORMAL VALVES M-MODE: MV: CALCIFIC MITRAL VALVE ANNULUS AV: NORMAL TV: NORMAL PV: NORMAL CHAMBER SIZE: ENLARGED LEFT ATRIAL CAVITY WALL MOTION: MILDLY HYPOKINETIC INFERIOR POST WALL PERICARDIUM: NORMAL INTERPRETATION: 1. LEFT VENTRICULAR HYPERTROPHY WITH ENLARGED LEFT ATRIAL CAVITY 2. MILDLY HYPOKINETIC INFERIOR POST WALL WITH LEFT VENTRICULAR EJECTION FRACTION 53% 3. CALCIFIC MITRAL VALVE ANNULUS 4. NORMAL LEFT VENTRICULAR SIZE AND VALVES MTDD
[2016-11-08] MEDS: COREG PO SCH ×2 (08:41→17:22)
[2016-11-08] MEDS: PLAVIX PO SCH (08:41)
[2016-11-08] MEDS: CYMBALTA PO SCH (08:41)
[2016-11-08] MEDS: LEXAPRO PO SCH (08:41)
[2016-11-08] MEDS: ATIVAN IVP PRN ×2 (08:42→17:26)
[2016-11-08] MEDS: PREDNISONE PO SCH ×2 (08:42→17:23)
[2016-11-08] MEDS: K-DUR PO SCH ×4 (08:42→20:35)
[2016-11-08] MEDS: APRESOLINE PO SCH ×2 (08:42→20:36)
[2016-11-08] MEDS: DALIRESP PO SCH (08:42)
[2016-11-08] MEDS: CATAPRES PO PRN ×2 (08:42→17:30)
[2016-11-08] MEDS: FLONASE NAS SCH ×2 (08:43→20:35)
[2016-11-08] MEDS: BECLOMETHASONE DIPROPIONATE 80 MCG IH SCH (10:48)
[2016-11-08] MEDS ORDERED: MYLANTA SUSP PO PRN (14:44)
[2016-11-08] MEDS: CRESTOR PO SCH (20:35)
[2016-11-09 04:50] LABS: HEMATOCRIT 27.6 % (37.0-47.0); HEMOGLOBIN 9.1 g/dl (12.0-16.0); IMMATURE GRANULOCYTE % (AUTO) 0.8 % (0.0-5.0); LYMPHOCYTES # (AUTO) 0.9 K/uL (0.60-3.4); LYMPHOCYTES % (AUTO) 10.6 (10.0-50.0); MEAN CORPUSCULAR HEMOGLOBIN 27.5 pg (27.0-31.0); MEAN CORPUSCULAR VOLUME 83.4 fl (81.0-99.0); MONOCYTES # (AUTO) 0.6 K/uL (0.4-2.0); MONOCYTES % (AUTO) 7.4 (0-10); NEUTROPHILS % (AUTO) 81.2; PLATELET COUNT 110 10^3/uL (140-440); RED BLOOD COUNT 3.31 10^6/ul (4.20-5.40); WHITE BLOOD COUNT 8.67 K/ul (4.6-10.2)
[2016-11-09] MEDS: TORADOL IVP SCH ×2 (04:55→13:13)
[2016-11-09 05:06] LABS: ALBUMIN 3.1 g/dL (3.4-5.0); ALBUMIN/GLOBULIN RATIO 1.48; ANION GAP 14.6; BILIRUBIN,TOTAL 0.44 mg/dL (0.00-1.20); BUN/CREATININE RATIO 29.41; CALCIUM 8.8 mg/dL (8.2-10.2); CREATININE 1.02 mg/dL (0.60-1.30); POTASSIUM 5.6 mmol/L (3.5-5.10); TOTAL PROTEIN 5.2 g/dL (5.8-8.1)
[2016-11-09] MEDS: CATAPRES PO PRN (05:29)
[2016-11-09] MEDS: PLETAL PO SCH (05:29)
[2016-11-09] MEDS: XOPENEX 1.25 MG NEB SCH ×2 (05:46→11:20)
[2016-11-09] MEDS: PREDNISONE PO SCH (09:04)
[2016-11-09] MEDS: DALIRESP PO SCH (09:04)
[2016-11-09] MEDS: CYMBALTA PO SCH (09:04)
[2016-11-09] MEDS: APRESOLINE PO SCH (09:04)
[2016-11-09] MEDS: FLONASE NAS SCH (09:04)
[2016-11-09] MEDS: COREG PO SCH (09:04)
[2016-11-09] MEDS: LEXAPRO PO SCH (09:05)
[2016-11-09] MEDS: PLAVIX PO SCH (09:05)
[2016-11-09] MEDS: BECLOMETHASONE DIPROPIONATE 80 MCG IH SCH (09:24)
[2016-11-09 09:47] LABS: ABG PCO2 45.6 mmHg (35-45); ABG PH 7.394 (7.35-7.45)
[2016-11-09 09:48] LABS: ABG BASE EXCESS 3 (-2.0-2.0); ABG HCO3 27.9 (22.0-26.0); ABG TCO2 29 (22.0-28.0)
--- NOTE | 2016-11-09 09:51 | PCM.PROG ---
Attending Provider: ATTENDING PROVIDER: Dr. SIDDHARTHA BRITO DATE OF SERVICE: 11/09/16 SUBJECTIVE: This 71 year old WHITE/ F was hospitalized 11/03/16. The patient was seen with Nurse Practitioner, Rupal. The patient is alert and resting well. She has a renal ultrasound and Doppler scheduled for today. Will discharge after. REVIEW OF SYSTEMS: CONSTITUTIONAL: No night sweats. No fatigue, malaise, lethargy. No fever or chills. HEENT: Eyes: No visual changes. No eye pain. No eye discharge. ENT: No runny nose. No epistaxis. No sinus pain. No odynophagia. No congestion. RESPIRATORY: No cough, no congestion. No hemoptysis. CARDIOVASCULAR: No angina symptoms. No CHF symptoms. No atypical chest pain for CAD. No palpitations. No shortness of breath. GASTROINTESTINAL: No abdominal pain. No nausea or vomiting. No diarrhea or constipation. No hematemesis. No hematochezia. GENITOURINARY: No urgency. No frequency. No dysuria. No hematuria. No obstructive symptoms. No discharge. No pain. No significant abnormal bleeding. MUSCULOSKELETAL: No musculoskeletal pain; no joint swelling. NEUROLOGICAL: Awake, alert, oriented to time, place and person. No headache. No neck pain. No syncope. No seizures. No dizziness. PSYCHIATRIC: Not anxious. No depression. No suicidal thoughts. No homicidal thoughts. SKIN: No rash. No lesions. No wounds. ENDOCRINE: No unexplained weight loss. No weight gain. HEMATOLOGIC/LYMPHATIC: No anemia. No purpura. No petechiae. No prolonged or excessive bleeding. No palpable lymph nodes. PHYSICAL EXAMINATION: GENERAL: The patient is awake, alert and oriented, lying in bed in no distress. VITAL SIGNS: Temperature 97.2 F, Pulse 82, Respiratory Rate 17, BP 180/76, Pulse Ox 99% HEENT: Head normocephalic, atraumatic. Eyes: Extraocular muscles are intact. Pupils are equal, round and reactive to light and accommodation. Ears: No lesions. Nose appeared normal. Throat: No exudate or erythema. NECK: Supple. No JVD, no carotid bruit. No lymphadenopathy or thyromegaly. LUNGS: Diminished breath sounds bilaterally. Percussion note normal. Chest symmetrical. HEART: S1, S2, no S3. No murmurs. No cyanosis or clubbing. No ascites. Pulses: Dorsalis pedis and posterior tibial pulses +1 to +2 both sides. ABDOMEN: Soft. Non-tender. Bowel sounds active. No CVA tenderness. No mass felt. EXTREMITIES: No edema. Full range of motion of all extremities, equal. NEUROLOGIC: No focal deficit. Cranial nerves II through XII are grossly intact. No headache, no double vision or headache. SKIN: Not dry. Intact. Turgor-normal. LYMPHATIC: No palpable lymph nodes/no lymphedema. MUSCULOSKELETAL: Normal joints with no swelling. Muscle tone is normal. LAB REVIEW: 11/09/16 04:46 11/09/16 04:46 11/09/16 04:46: WBC 8.67, RBC 3.31 L, Hgb 9.1 L, Hct 27.6 L, MCV 83.4, MCH 27.5 , MCHC 33.0, RDW Coeff of Tr 17.6 H, Plt Count 110 L, Immature Gran % (Auto) 0.8, Neut % (Auto) 81.2, Lymph % (Auto) 10.6, [place] % (Auto) 7.4, Eos % (Auto) 0.0, Baso % (Auto) 0.0, Immature Gran # (Auto) 0.1, Neut # 7.0 H, Lymph # 0.9, [place] # 0.6, Eos # 0.0, Baso # 0.0, Sodium 136, Potassium 5.6 H, Chloride 104, Carbon Dioxide 23, Anion Gap 14.6, BUN 30 H, Creatinine 1.02, Estimated GFR ( MDRD) 53.00, BUN/Creatinine Ratio 29.41, Glucose 97, Calcium 8.8, Total Bilirubin 0.44, AST 12 L, ALT 17, Alkaline Phosphatase 38 L, Total Protein 5.2 L , Albumin 3.1 L, Globulin 2.1, Albumin/Globulin Ratio 1.48 ASSESSMENT: Please see below. 1. Acute respiratory failure-resolved 2. Hypertension 3. COPD 4. Narotic withdraw, which has resolved PLAN: 1. Renal ultrasound and Doppler 2. ABG on Room air 3. Will hold Potassium 4. Discharge later today Plan and coordination of the patient's care discussed in the presence of Franchise Specialist and nurse. SCRIBED BY: REGGIE SAUNDERS Cost Estimator scribed while in presence of service performed by Dr. SIDDHARTHA BRITO/RUPAL MILLS APRN on 11/09/16 ([id number])
[2016-11-09] MEDS ORDERED: COZAAR PO STA (10:17)
--- NOTE | 2016-11-09 13:20 | CM.DICTOOL ---
ADMISSION: 11/03/16 14:59 DISCHARGE: NOVEMBER 09, 2016 DATE OF SERVICE: 11/09/16 FINAL DIAGNOSIS Acute Respiratory Failure Altered mental status COPD exacerbation Severe chronic lung disease, oxygen dependent Hypokalemia, resolved Neuropathy Hypertension Dyslipidemia Depression Anxiety Osteoarthritis DJD spine Hysterectomy, 1989 Aortoiliac Bypass Bilateral Fem Pop Infrarenal Artery Stenosis Carotid Occlusive Disease AAA, 1997 LVH with LVEF 46% LAST VITALS Temp Pulse Resp BP Pulse Ox 98.9 F 80 17 125/52 L 98 11/09/16 10:00 11/09/16 10:30 11/09/16 05:29 11/09/16 11:20 11/09/16 10:00 ACTIVE HOME MEDICATIONS Carvedilol (Coreg) 25 mg PO BIDWM [facility] Last Admin: 11/09/16 09:04 Dose: 25 mg Cilostazol (Pletal) 100 mg PO BIDAC [facility] Last Admin: 11/09/16 05:29 Dose: 100 mg Clopidogrel Bisulfate (Plavix) 75 mg PO DAILY [facility] Last Admin: 11/09/16 09:05 Dose: 75 mg Duloxetine HCl (Cymbalta) 60 mg PO DAILY [facility] Last Admin: 11/09/16 09:04 Dose: 60 mg Escitalopram Oxalate (Lexapro) 10 mg PO DAILY [facility] Last Admin: 11/09/16 09:05 Dose: 10 mg Hydralazine HCl (Apresoline) 100 mg PO BID [facility] Last Admin: 11/09/16 09:04 Dose: 100 mg Non-Formulary Medication (Beclomethasone Dipropionate [Qvar]) 80 mcg IH DAILY [facility] Last Admin: 11/09/16 09:24 Dose: Not Given Prednisone (Prednisone) 10 mg PO BIDWM [facility] (Home dose is daily) Last Admin: 11/09/16 09:04 Dose: 10 mg Roflumilast (Daliresp) 500 mcg PO DAILY [facility] Last Admin: 11/09/16 09:04 Dose: 500 mcg Rosuvastatin Calcium (Crestor) 20 mg PO BEDTIME [facility] Last Admin: 11/08/16 20:35 Dose: 20 mg Cyanocobalamin (vitamin B12) 500 mcg Daily Last Admin: Potassium Chloride (Micro K cap) 5 meq Daily Last Admin: Ferrous Gluconate 324 mg BID Last Admin: Arformoterol Tartrate (Brovana) 1 vial Every 12 hours Last Admin: ASA 81 mg daily Last Admin: Cholecalciferol (Vitamin D3) 400 unit PO Daily Last Admin: Triamterene (Dyazide) 1 capsule Daily Last Admin: Pregabalin (lyrica) 50 mg PO Bid Last Admin: ALLERGIES No Known Allergies Allergy (Verified 10/19/16 22:25) NEW PRESCRIPTIONS: Xanax 0.25 mg BID prn Cozaar 50 mg daily Prednisone 10 mg daily Clonidine 0.1 mg BID prn systolic blood pressure greater than 150 SMOKING: Strongly advised to stop smoking DISEASE SPECIFIC EDUCATION: Pulmonary Rehab Prescriptions Appointment Medications Nutrition LAB REVIEW: 11/09/16 04:46 11/09/16 04:46 11/09/16 09:40: Puncture Site Rrad, O2 Saturation 86.0 L, ABG pH 7.394, ABG pCO2 45.6 H, ABG pO2 53.0 L*, ABG HCO3 27.9 H, ABG Total CO2 29 H, ABG Base Excess 3 H, Miki Test +, FiO2 % 21.0 11/09/16 04:46: WBC 8.67, RBC 3.31 L, Hgb 9.1 L, Hct 27.6 L, MCV 83.4, MCH 27.5 , MCHC 33.0, RDW Coeff of Tr 17.6 H, Plt Count 110 L, Immature Gran % (Auto) 0.8, Neut % (Auto) 81.2, Lymph % (Auto) 10.6, [place] % (Auto) 7.4, Eos % (Auto) 0.0, Baso % (Auto) 0.0, Immature Gran # (Auto) 0.1, Neut # 7.0 H, Lymph # 0.9, [place] # 0.6, Eos # 0.0, Baso # 0.0, Sodium 136, Potassium 5.6 H, Chloride 104, Carbon Dioxide 23, Anion Gap 14.6, BUN 30 H, Creatinine 1.02, Estimated GFR ( MDRD) 53.00, BUN/Creatinine Ratio 29.41, Glucose 97, Calcium 8.8, Total Bilirubin 0.44, AST 12 L, ALT 17, Alkaline Phosphatase 38 L, Total Protein 5.2 L , Albumin 3.1 L, Globulin 2.1, Albumin/Globulin Ratio 1.48 PLAN: Discharge home Diet: Regular diet as tolerated Activity: Gradually resume as tolerated Use oxygen at 2 liters per nasal cannula You are encouraged to resume Pulmonary Rehab after you see Dr. Dawson in the office Medication changes: STOP [place] STOP scheduled xanax 0.25 mg BID. New RX is for as needed for anxiety Please check your blood pressure at least twice daily You may take plain Tylenol 325 mg two tablets up to four times a day for pain An appointment is scheduled with Dr. Dawson on November 11 at 1 pm Mrs. Hernandez is alert and oriented x 3. Meal intakes are fair at 50%. She transfers to the chair and to the bathroom with minimal assistance of the nursing staff. She utilizes oxygen continuously at 2 liters per nasal cannula. She has oxygen at home and portability for travel. Skin is in good condition and free of rashes, decubitus or irritaion. Arnold Dawson MD Rupal Perez APRN
[2016-11-09 14:21] VITALS: BP 137/53; TEMP 97.1
--- NOTE | 2016-11-10 09:35 | PN ---
DATE OF SERVICE: 11/09/16 SUBJECTIVE: The patient is a 71 year old white female hospitalized with acute respiratory failure. The patient was seen and examined with the Nurse Practitioner and Mechanical Meter Tester. The patient's condition has steadily improved. PHYSICAL EXAMINATION: GENERAL: The patient is oriented to time, place and person. VITAL SIGNS: Temperature 97.2, pulse 82, respiratory rate 17, blood pressure 180/76 and pulse ox 99%. HEENT: Head normocephalic, atraumatic. Eyes: Extraocular muscles are intact. Pupils are equal, round and reactive to light and accommodation. Ears: No lesions. Nose appeared normal. Throat: No exudate or erythema. NECK: Supple. No JVD, no carotid bruit. No lymphadenopathy or thyromegaly. LUNGS: Decreased breath sounds but clear to auscultation. Percussion note normal. Chest symmetrical. HEART: S1, S2, no S3. No murmurs. No cyanosis or clubbing. No ascites. Pulses: Dorsalis pedis and posterior tibial pulses +1 to +2 both sides. ABDOMEN: Soft. Nontender. Bowel sounds active. No CVA tenderness. No mass felt. EXTREMITIES: No edema. Full range of motion of all extremities, equal. NEUROLOGIC: No focal deficit. Cranial nerves II through XII are grossly intact. No headache, no double vision or headache. SKIN: Not dry. Intact. Turgor - normal. LYMPHATIC: No palpable lymph nodes/no lymphedema. MUSCULOSKELETAL: Normal joints with no swelling. Muscle tone is normal. LABS: Stable with anemia. Potassium is 5.6 so we will discontinue four times a day potassium and just maintain her on regular potassium tablets that she is usually takes. The patient was explained that her ABG on room air with pO2 53, pCO2 less than 40 with normal pH indicates that she does not usual have CO2 retention but retains CO2 quite a lot on admission with respiratory failure because of drug effect. PLAN: 1. Will discontinue her [place] instead of that she is advised to take Tylenol 2. Xanax will be continued 0.25mg twice a day 3. Cozaar is new medication for blood pressure, 50mg 4. Hydralazine will be continued 100mg twice a day 5. Clonidine 0.1mg twice fro systolic blood pressure more than 140. 6. She was explained about all the medications in detail and advised not to take her [place]. Advised not to abuse any of medications. 7. Nutritional status needs to be improved, talked to the repeatedly during the stay in the hospital and he needs to monitor the medication. He promised to do that. Also the daughter, I met her twice, she also promised to monitor her medications. The patient will be given small dose of Xanax 8. I will see the patient in 2-3 days. 9. Counseling for smoking done. 10. The patient's BMI needs to be up. Advised nutrition. CONDITION: Stable PROGNOSIS: Poor TIME SPENT: More than 30 minutes. Plan and coordination of the patient's care discussed in the presence of nurse. KEVIN
--- NOTE | 2016-11-10 09:36 | PN ---
11/03/16: Level 5 11/04/16: Intermediate 11/05/16: Intermediate 11/06/16: Intermediate 11/07/16: Intermediate 11/08/16: Brief 11/09/16: D as in discharge. MTDD
--- NOTE | 2016-11-10 11:32 | PN ---
DATE OF SERVICE: 11/07/16 SUBJECTIVE: The patient is a 71 year old white female hospitalized with acute respiratory failure with CO2 retention likely from medication effect. The patient's condition has steadily improved. She is less restless and oriented to place and person. She is less agitated now. Her blood pressure seems to be better controlled with fluctuation depending upon mood. I checked the blood pressure it was 148/76 this morning. REVIEW OF SYSTEMS: CONSTITUTIONAL: No night sweats. No fatigue, malaise, lethargy. No fever or chills. HEENT: Eyes: No visual changes. No eye pain. No eye discharge. ENT: No runny nose. No epistaxis. No sinus pain. No sore throat. No odynophagia. No congestion. RESPIRATORY: No cough, no congestion. No hemoptysis. CARDIOVASCULAR: No angina symptoms. No CHF symptoms. No atypical chest pain for CAD. No palpitations. No shortness of breath. GASTROINTESTINAL: No abdominal pain. No nausea or vomiting. No diarrhea or constipation. No hematemesis. No hematochezia. GENITOURINARY: No urgency. No frequency. No dysuria. No hematuria. No obstructive symptoms. No discharge. No pain. No significant abnormal bleeding. MUSCULOSKELETAL: No musculoskeletal pain; no joint swelling. NEUROLOGICAL: No headache. No neck pain. No syncope. No seizures. No dizziness. Agitation at times and restlessness. She insisting on going on because she says that she feels better sleeping in her own bed. PSYCHIATRIC: Not anxious. No depression. No suicidal thoughts. No homicidal thoughts. SKIN: No rash. No lesions. No wounds. ENDOCRINE: No unexplained weight loss. No weight gain. HEMATOLOGIC/LYMPHATIC: No anemia. No purpura. No petechiae. No prolonged or excessive bleeding. No palpable lymph nodes. PHYSICAL EXAMINATION: GENERAL: The patient is oriented to place and person. VITAL SIGNS: Temperature 98, pulse 100, respiratory rate 20, blood pressure 119 /97 taken earlier and pulse ox 99%. HEENT: Head normocephalic, atraumatic. Eyes: Extraocular muscles are intact. Pupils are equal, round and reactive to light and accommodation. Ears: No lesions. Nose appeared normal. Throat: No exudate or erythema. NECK: Supple. No JVD, no carotid bruit. No lymphadenopathy or thyromegaly. LUNGS: Decreased breath sounds. Clear to auscultation. Percussion note normal. Chest symmetrical. HEART: S1, S2, no S3. No murmurs. No cyanosis or clubbing. No ascites. Pulses: Dorsalis pedis and posterior tibial pulses +1 to +2 both sides. ABDOMEN: Soft. Nontender. Bowel sounds active. No CVA tenderness. No mass felt. EXTREMITIES: No edema. Full range of motion of all extremities, equal. NEUROLOGIC: No focal deficit. Cranial nerves II through XII are grossly intact. No headache, no double vision or headache. SKIN: Not dry. Intact. Turgor - normal. LYMPHATIC: No palpable lymph nodes/no lymphedema. MUSCULOSKELETAL: Normal joints with no swelling. Muscle tone is normal. LABS: Hgb 9.6, hct 28, WBC 6,100 normal differential, creatinine 1, BUN 25. ASSESSMENT: 1. Acute respiratory failure, seems to have resolved with oxygen saturation 99% on 2 liters 2. Abnormal EKG with poor R -wave progression. The patient never had this type of EKG before but the patient doesn't have any symptoms of coronary insufficiency. Echocardiogram done because of this finding today which showed LVH enlarged LA cavity mildly hypokinetic inferior post wall with LV ejection fraction 53% but the echo findings don't go along with EKG findings. 3. Peripheral arterial disease with status post surgery 4. Heavy smoking with severe chronic lung disease 5. Dyslipidemia 6. Hypertension, labile PLAN: 1. Continue Hydralazine, Catapres, Vasotec IV for systolic more than 160mg, Toradol IV, Ativan needed 0.5mg IV Q 3 hourly and steroids 2. Crestor to be continued. CONDITION: Stable PROGNOSIS: Poor TIME SPENT: More than 30 minutes. Plan and coordination of the patient's care discussed in the presence of nurse. KEVIN
--- NOTE | 2016-11-10 14:21 | PN ---
DATE OF SERVICE: 11/08/16 SUBJECTIVE: The patient is a 71 year old white female hospitalized with acute respiratory failure with CO2 retention likely from drug usage, Narcotics. The patient's condition has steadily improved and she went through agitation and aggressive behaviors and she is settling down. The patient is forgetful and very likely early vascular dementia. The patient has severe peripheral arterial disease. The patient had an echocardiogram done which showed mildly hypokinetic inferior posterior wall with LV ejection fraction fraction 52%. The patient has severe chronic lung disease with history of smoking. She will not give up smoking. She is non-compliant in her medication usage and the is present. He is not much help lately but he has promised to monitor patient's pain medication. He is strongly advised to do that. Small amount of narcotic maybe given for the pain the patient has and she will be closely monitored. REVIEW OF SYSTEMS: CONSTITUTIONAL: No night sweats. No fatigue, malaise, lethargy. No fever or chills. HEENT: Eyes: No visual changes. No eye pain. No eye discharge. ENT: No runny nose. No epistaxis. No sinus pain. No sore throat. No odynophagia. No congestion. RESPIRATORY: No cough, no congestion. No hemoptysis. CARDIOVASCULAR: No angina symptoms. No CHF symptoms. No atypical chest pain for CAD. No palpitations. No shortness of breath. GASTROINTESTINAL: No abdominal pain. No nausea or vomiting. No diarrhea or constipation. No hematemesis. No hematochezia. Appetite has improved. GENITOURINARY: No urgency. No frequency. No dysuria. No hematuria. No obstructive symptoms. No discharge. No pain. No significant abnormal bleeding. MUSCULOSKELETAL: No musculoskeletal pain; no joint swelling. NEUROLOGICAL: No headache. No neck pain. No syncope. No seizures. No dizziness. PSYCHIATRIC:Mild anxious. No depression. No suicidal thoughts. No homicidal thoughts. Mild Tremors. SKIN: No rash. No lesions. No wounds. ENDOCRINE: No unexplained weight loss. No weight gain. HEMATOLOGIC/LYMPHATIC: No anemia. No purpura. No petechiae. No prolonged or excessive bleeding. No palpable lymph nodes. PHYSICAL EXAMINATION: GENERAL: The patient is oriented to time, place and person. VITAL SIGNS: Temperature 97, pulse 90, respiratory rate 19, blood pressure 170/ 80 and pulse ox 99%. HEENT: Head normocephalic, atraumatic. Eyes: Extraocular muscles are intact. Pupils are equal, round and reactive to light and accommodation. Ears: No lesions. Nose appeared normal. Throat: No exudate or erythema. NECK: Supple. No JVD, no carotid bruit. No lymphadenopathy or thyromegaly. LUNGS: Decreased breath sounds but Clear to auscultation. Percussion note normal. Chest symmetrical. HEART: S1, S2, no S3. No murmurs. No cyanosis or clubbing. No ascites. Pulses: Dorsalis pedis and posterior tibial pulses +1 to +2 both sides. ABDOMEN: Soft. Nontender. Bowel sounds active. No CVA tenderness. No mass felt. EXTREMITIES: No edema. Full range of motion of all extremities, equal. NEUROLOGIC: No focal deficit. Cranial nerves II through XII are grossly intact. No headache, no double vision or headache. SKIN: Not dry. Intact. Turgor - normal. LYMPHATIC: No palpable lymph nodes/no lymphedema. MUSCULOSKELETAL: Normal joints with no swelling. Muscle tone is normal. LABS: hgb 9.5, hct 28, WBC 8,400 normal differential, creatinine 1.1, BUN 30, potassium 5 ASSESSMENT: 1. Acute respiratory failure with CO2 retention from combination of COPD and also from the medications effect that she is taking in excess. PLAN: 1. Counseling for smoking done. 2. Dementia is discussed with the and all the problems 3. The patient is strongly advised to nutrition discussed 4. Advised to take medications regularly 5. Advised not to abuse Narcotic 2. Narcotic effects discussed and discussed with the about Narcotics and monitor her use. He promised and also the daughter was in the room day before yesterday and she also was explained about this and she also agreed that she would monitor her mother's medications. In the past the patient had couple of hospitalizations with the same problems CONDITION: Stable. The patient's blood pressure fluctuates systolic depends on her agitation. She has been on multiple medications. The patient will undergo renal flow studies to rule out renal artery stenosis TIME SPENT: More than 30 minutes. Plan and coordination of the patient's care discussed in the presence of nurse. KEVIN
--- NOTE | 2016-11-12 10:57 | HP ---
DATE OF SERVICE: 11/03/16 REASON FOR HOSPITALIZATION: Shortness of breath and confusion HISTORY OF PRESENT ILLNESS: 71 year old female who presented to [facility] Emergency Room complaining of increasing shortness of breath. She has a history of COPD which is worsening and she is a rn long term care smoker and has continued to smoke. At the time she arrived to the Emergency Room her oxygen saturations were low below 90. She does have oxygen at home and she was drowsier then normal. Her first ABG's were done with a pH 7.3, pCO2 68, pO2 41 total CO2 37, base excess of 9. She was found to be in acute respiratory failure. The was present with her in the emergency room and stated that he thought that she had fallen at home and brought her to the emergency room for the shortness of breath, confusion, drowsiness. CT scan of the head was normal and CT scan of the abdomen and pelvis showed bilateral lower airway thickening. Chest x-ray showed minimal ground glass in left lower lobe suggestive of reactive airway changes. REVIEW OF SYSTEMS: CONSTITUTIONAL: No night sweats. Weakness and confusion. No fever or chills. HEENT: Eyes: No visual changes. No eye pain. No eye discharge. ENT: No runny nose. No epistaxis. No sinus pain. No sore throat. No odynophagia. No ear pain. No congestion. RESPIRATORY: Cough, no congestion. No hemoptysis. Shortness of breath. Wears oxygen. CARDIOVASCULAR: No angina symptoms. No CHF symptoms. No atypical chest pain for CAD. No palpitations. No shortness of breath. GASTROINTESTINAL: No abdominal pain. No nausea or vomiting. No diarrhea or constipation. No hematemesis. No hematochezia. GENITOURINARY: No urgency. No frequency. No dysuria. No hematuria. No obstructive symptoms. No discharge. No pain. No significant abnormal bleeding. MUSCULOSKELETAL: No musculoskeletal pain. No joint swelling. No arthritis. Positive for weakness. NEUROLOGICAL: No headache. No neck pain. No syncope. No seizures. No dizziness. Drowsy but responsive. PSYCHIATRIC: Not anxious. No depression. No suicidal thoughts. No homicidal thoughts. SKIN: No rash. No lesions. No wounds. ENDOCRINE: No unexplained weight loss. No weight gain. HEMATOLOGIC/LYMPHATIC: No anemia. No purpura. No petechiae. No prolonged or excessive bleeding. No palpable lymph nodes. PERSONAL/FAMILY/SOCIAL HISTORY: The patient is at least a pack per day smoker for the past 50 years despite worsening COPD she has continued smoking. She denies any alcohol or illicit drug use. 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 Guzman for peripheral arterial disease Status post hysterectomy Bilateral aortic iliac bypass MEDICATIONS: Lexapro 10mg daily [place] 540mg daily Carvedilol 12.5mg twice a day Crestor 10mg daily Lyrica 100mg twice a day Beclomethasone one puff twice a day Daliresp 500mcg daily Ventolin inhaler one puff Q 4-6 hours needed Brovana 15mcg per 2ml inhalation solution twice a day Plavix 75mg daily Cymbalta 60mg daily [place] 10-325mg one tablet three times a day PRN Cilostazol 100mg twice a day Potassium chloride 10meq daily Xanax 0.2mg three times a day PRN Vitamin D 400 units daily Spiriva 18mcg 1 inhalation daily ALLERGIES: No known allergies PHYSICAL EXAMINATION: GENERAL: The patient's appearance is cachetic. She is thin. HEENT: Head normocephalic, atraumatic. Eyes: Extraocular muscles are intact. Pupils are equal, round and reactive to light and accommodation. Ears: No lesions. Nose appeared normal. Throat: No exudate or erythema. NECK: Supple. No JVD, no carotid bruit. No lymphadenopathy or thyromegaly. LUNGS: Diminished breath sounds bilaterally with mild expiratory wheeze bilaterally. Percussion note normal. Chest symmetrical. HEART: S1, S2, no S3. No murmurs, clicks or rubs. No cyanosis or clubbing. No ascites. Pulses: Dorsalis pedis and posterior tibial pulses +1 to +2 both sides. ABDOMEN: Soft. Nontender. Bowel sounds active. No CVA tenderness. No mass felt. EXTREMITIES: No edema. Full range of motion of all extremities, equal. Generalized weakness. NEUROLOGIC: No focal deficit. Cranial nerves II through XII are grossly intact. No headache, no double vision or headache. The patient is drowsy although seems intact. SKIN: Dry. Intact. Turgor - normal. LYMPHATIC: No palpable lymph nodes/no lymphedema. MUSCULOSKELETAL: Normal joints with no swelling. Muscle tone is normal. ASSESSMENT: 1. Acute respiratory failure 2. Acute COPD exacerbation 3. Drowsiness improved by Narcan 4. Shortness of breath 5. Anemia PLAN: 1. Will admit to Special Care Unit 2. Routine telemetry orders 3. ABG monitoring 4. CBC and CMP daily 5. DUO NEBS Q 6 hours 6. Oxygen as needed 7. IV steroids Solu-Medrol 125mg Q 6 hours 8. Narcotics risk verus benefits. Risks of addiction of narcotics and abuse of narcotics discussed in detail with patient 9. Smoking cessation advised and discussed in detail with patient. TIME SPENT: More than 70 minutes. MTDD
--- NOTE | 2016-11-17 13:53 | DS ---
DATE OF SERVICE: 11/09/16 FINAL DIAGNOSIS: 1. Acute respiratory failure 2. Altered mental status 3. COPD exacerbation 4. Severe chronic lung disease, oxygen dependant 5. Hypokalemia, resolved 6. Neuropathy 7. Hypertension 8. Dyslipidemia 9. Depression 10.Anxiety 11.Osteoarthritis 12.DJD Spine 13.Hysterectomy, 1989 14.Aortoiliac bypass 15.Bilateral Fem Pop 16.Infrarenal artery stenosis 17. Carotid Occlusive disease 18. AAA, 1997 19.LVH with LVEF 46% LAST VITALS: Temperature 98.9, pulse 80, respiratory rate 17, blood pressure 125/52 and pulse ox 98%. DISCHARGE INSTRUCTIONS: Discharge home today . Encouraged to resume Pulmonary rehab after seeing Dr. Dawson in office. May take plain Tylenol 325mg two tablets up to four times a day for pain. Appointment is scheduled with Gris Dawson on November 11 at 1pm. Stop Binger. Stop scheduled Xanax 0.25mg twice a day, new prescription is for as needed for anxiety. Please check blood pressure at least twice daily. MEDICATIONS AT DISCHARGE: Coreg 25mg PO twice a day Pletal 100mg PO twice a day Plavix 75mg Po daily Cymbalta 60mg PO daily Lexapro 10mg PO daily Apresoline 100mg PO twice a day Qvar 80mcg IG daily Prednisone 10mg PO twice a day Daliresp 500mcg PO daily Crestor 20mg PO bedtime Vitamin B12 500mcg daily Micro K cap 5 meq daily Ferrous Gluconate 324mg twice a day Brovana 1 vial every 12 hours ASA 81mg daily Vitamin D3 400 unit PO daily Dyazide 1 capsule daily Lyrica 50mg PO twice a day ALLERGIES: No known allergies NEW PRESCRIPTIONS: Xanax 0.25mg PO twice a day PRN Cozaar 50mg daily Prednisone 10mg daily Clonidine 0.1mg twice a day PRN systolic blood pressure greater than 150 DIET INSTRUCTIONS: Regular diet as tolerated ACTIVITY: Gradually resume as tolerated. Use oxygen at 2 liters per nasal cannula. SMOKING: Strongly advised to stop smoking DISEASE SPECIFIC EDUCATION: Pulmonary rehab Prescriptions Appointments Medications Nutrition HOSPITAL COURSE: The patient is a 71 year old female who arrived at [facility] emergency room complaining of worsening shortness of breath and drowsiness. While in the emergency room her drowsiness and shortness of breath continued to worsen. ABG' s in the ER on O2 pH 7.3,pCO2 68, pO2 41, HCO3 35, TCO2 37, O2 sat 69% and base excess of 9 she was then placed on O2 and a repeat ABG was done which was slightly improved with O2 saturation of 96%, pH 7.259, pCO2 83.5, pO2 104, HCO3 37.4 and total CO2 40 and base excesses of 10. The patient was seemingly becoming unresponsive, drowsy, confused and patient was given Narcan in which her confusion abruptly resolved and she became more alert. She stated that she might have taken too much medication. She was admitted to the Special Care Unit and placed on routine telemetry orders, a blood alcohol level was drawn which was negative, routine ABG's were drawn, CT of the abdomen and pelvis was done along with a CT of the head and all were stable. She was also considered to have a acute COPD exacerbation. Her temperature was 96.4 on admission, pulse 89 , respiration 16, blood pressure 134/58 and pulse ox 82%. During her hospital stay her narcotics were discontinued and she was given 1mg of Ativan Q 6 hours as needed for restlessness. She did have some increasing restlessness and agitation along with elevation of her blood pressure during her stay. It was thought that she was going through acute Narcotic withdraw. She had been on prescribed Binger 10-325mg one PO three times a day PRN as well Xanax 0.25mg PO twice a day PRN. She also had Lyrica 50mg PO twice a day and these are the only controlled substances that she was supposed to be on at home. Her blood pressure got up to 200/120 during her hospital stay and she did become increasingly restless and sometimes tried to become combative. The felt that the Ativan was making this worse over the course of the weekend this seemed to resolve on it's own which supports the fact that this was acute narcotic withdraw. On the day of discharge she seems much better and she has been resting well. She had repeat ABG's done today on room air which showed a pH 7.39, pCO2 45, pO2 53, HCO3 27.9, TCO2 29 and O2 saturation at 86%. These were improved as these were on room air with no oxygen. She was supposed to have a renal ultrasound with Doppler flow which she did refuse as she stated that she was unable to lay on her back. We will not be discharging her home on any Binger.She did develop some Hypokalemia during her stay with a low of 3.2. We started her on Potassium 20meq three times a day and today she is 5.6 so we will hold her potassium today. This morning her blood pressure went down at 180/ 76 and at the time of discharge her blood pressure had even more significantly improved with 120/71. She was not agitated today and she had been eating more on her own. She seemed significantly better and she was OK with not going home with any narcotics. We will send her home on Clonidine 0.1mg to take when her systolic is greater than 160. We restarted her on Cymbalta and Lexapro PO. She was also started on Coreg, Dyazide and Apresoline which she will go home with. She will discharged home on Xanax 0.25mg twice a day PRN, Cozaar 50mg daily and continue Prednisone 10mg for three more days with acute COPD exacerbation. She will be give Clonidine 0.1mg twice a day for systolic blood pressure greater than 160. Smoking cessation was strongly advised for this patient as she has a terminal worker history of smoker and has a history of respiratory failure. She was encouraged to start pulmonary rehab after she sees us in the office. We will stop the Binger and stop scheduled Xanax. She can take Tylenol 325mg up to four times a day for pain as needed. She will followup with us on November 11 at 1pm. If she needs anything else before then she is to come to the office. TIME SPENT: More than 60 minutes. KEVIN
== END 2016-11-09 15:30 | disposition home or self-care (01) | DRG 189 ==
LOC: ED 12:35 → SCU 14:59
PROVIDERS: ADMIT Internal Medicine; ATTEND Internal Medicine
DX: J96.00 Acute respiratory failure, unspecified whether with hypoxia or hypercapnia (principal); J44.1 Chronic obstructive pulmonary disease with (acute) exacerbation; F11.23 Opioid dependence with withdrawal; R41.82 Altered mental status, unspecified; I51.7 Cardiomegaly; E87.6 Hypokalemia; R94.39 Abnormal result of other cardiovascular function study; G62.9 Polyneuropathy, unspecified; I10 Essential (primary) hypertension; E78.5 Hyperlipidemia, unspecified; F41.8 Other specified anxiety disorders; M19.90 Unspecified osteoarthritis, unspecified site; M47.9 Spondylosis, unspecified; I70.1 Atherosclerosis of renal artery; I65.29 Occlusion and stenosis of unspecified carotid artery; Z91.14 Patient's other noncompliance with medication regimen; R94.31 Abnormal electrocardiogram [ECG] [EKG]; R45.1 Restlessness and agitation; T40.2X5A Adverse effect of other opioids, initial encounter; Y92.230 Patient room in hospital as the place of occurrence of the external cause; F17.210 Nicotine dependence, cigarettes, uncomplicated; Z79.02 Long term (current) use of antithrombotics/antiplatelets; Z79.899 Other long term (current) drug therapy; Z99.81 Dependence on supplemental oxygen; D64.9 Anemia, unspecified; I25.2 Old myocardial infarction
CPT/HCPCS: 36415; 80053; 80306; 80307; 81001; 82550; 82553; 82803; 82962; 84484; 85025; 87081; 93005; 93010; 94640; 96361; 96374; 96375; 99223; 99232; 99239; 99284

== ENCOUNTER 2016-11-17 07:20 | Outpatient (RCR) ==
[2016-12-17 13:30] VITALS: BP 144/52
== END 2016-12-17 ==
LOC: PUL.REHAB 07:20
PROVIDERS: ATTEND Internal Medicine
DX: J44.9 Chronic obstructive pulmonary disease, unspecified (principal)

== ENCOUNTER 2016-12-08 10:44 | Inpatient (IN) ==
[2016-12-08 10:51] VITALS: BMI 18.3
--- NOTE | 2016-12-08 11:36 | DI ---
Exam: Chest two-view HISTORY: Cough. Comparison: 11/03/2016. FINDINGS: Two views of the chest demonstrate hyper expanded lungs with no evidence of pneumonia or edema. The cardiac silhouette is at the upper limit of normal size. The thoracic aorta is partiall y calcified. Calcified granulomata are noted. The pulmonary vasculature is not congested. The skel etal structures are intact. There are degenerative findings in the spine. And abdominal aortic stent is partially visualized. IMPRESSION: No acute cardiopulmonary disease. Hyperexpanded lungs consistent with COPD. Atherosclerosis and prior granulomatosis.
--- NOTE | 2016-12-08 11:48 | CT ---
Exam: CT abdomen and pelvis without contrast HISTORY: Pain. Procedures: 5 mm contiguous axial images were obtained through the abdomen and pelvis without the u se of intravenous or oral contrast. Sagittal and coronal reformatted images were also created and r eviewed. Comparison: CT abdomen and pelvis without contrast 11/03/2016. Findings: Evaluation of the soft tissues is limited without use of intravenous or oral contrast. P ulmonary emphysematous disease is noted at the lung bases. There is improved aeration of the lung b ases compared to prior. Minimal linear atelectasis is noted in the lateral right lung base. A 4 mm p ulmonary nodules again noted in the posterior right lower lobe seen on axial image #2, this appears unchanged from 03/28/2015. The liver, gallbladder, spleen, pancreas and adrenal glands appear stabl e from prior. The kidneys are symmetric in size without radiodense renal stone or hydronephrosis. At the posterior lower pole of the left kidney there is redemonstration of a 1.5 cm fluid density pr obable cyst. Projecting laterally from the lower pole of the right kidney is a 0.8 cm fluid density probable cyst. The unopacified stomach and small bowel appear grossly within normal limits. The a ppendix is partially visualized and does not appear dilated or inflamed. The colon does not appear dilated or inflamed. The urinary bladder is nondistended, without radiodense stone. The uterus is not visualized. There is no free air, free fluid or lymphadenopathy identified involving the abdome n or pelvis. Atherosclerotic calcifications are noted with redemonstration of an aorto-iliac bypass graft. There is decreased mild haziness in the abdominal mesentery. Bone windows demonstrate degenerative findings in the hips and spine. There is no acute fracture. 2 mm anterolisthesis of L5 on L6 is noted. Impressions: No nephrolithiasis or hydronephrosis. No bowel obstruction. Decreasing mild hazy opacity in the mesenteric root compared to 11/03/2016. The minimal free fluid in the pelvis noted on the prior study is no longer visualized. Pulmonary emphysematous disease. 4 mm pulmonary nodule in the posterior right lower lobe appears stable from 03/28/2015. Follow-up c hest CT in 1 year is recommended. Findings were faxed to the emergency department at 11:35 a.m.
[2016-12-08 12:04] LABS: BASOPHILS % (AUTO) 0.5 % (0.0-3.0); EOSINOPHILS % (AUTO) 0.5 % (0.0-7.0); HEMOGLOBIN 6.7 g/dl (12.0-16.0); IMMATURE GRANULOCYTE % (AUTO) 0.5 % (0.0-5.0); LYMPHOCYTES # (AUTO) 1.1 K/uL (0.60-3.4); LYMPHOCYTES % (AUTO) 28.6 (10.0-50.0); MEAN CORPUSCULAR HEMOGLOBIN 25.8 pg (27.0-31.0); MEAN CORPUSCULAR HGB CONC 31.9 (31.8-35.4); MEAN CORPUSCULAR VOLUME 80.8 fl (81.0-99.0); MONOCYTES # (AUTO) 0.5 K/uL (0.4-2.0); MONOCYTES % (AUTO) 12.1 (0-10); NEUTROPHILS # (AUTO) 2.1 K/ul (2.0-6.9); NEUTROPHILS % (AUTO) 57.8; PLATELET COUNT 185 10^3/uL (140-440); WHITE BLOOD COUNT 3.71 K/ul (4.6-10.2)
[2016-12-08 12:23] LABS: PARTIAL THROMBOPLASTIN TIME 21.7 SEC (23.9-40.0); PROTHROMBIN TIME 9.9 SEC (9.3-11.0)
[2016-12-08 12:31] LABS: ALBUMIN 3.1 g/dL (3.4-5.0); ALBUMIN/GLOBULIN RATIO 1.29; ANION GAP 11.1; BILIRUBIN,TOTAL 0.32 mg/dL (0.00-1.20); BUN/CREATININE RATIO 8.75; CALCIUM 9.5 mg/dL (8.2-10.2); CREATININE 0.8 mg/dL (0.60-1.30); POTASSIUM 3.1 mmol/L (3.5-5.10); TOTAL PROTEIN 5.5 g/dL (5.8-8.1); TROPONIN I 0.015 ng/ml (0.0000-0.4000)
[2016-12-08 12:50] LABS: IMMATURE RETIC FRACTION 22.7; RETICULOCYTE % 2.69 %
--- NOTE | 2016-12-08 12:53 | ED.PDOC ---
General ED Provider: Dr. CHEN SHAIKH Chief Complaint: Non-specific Complaint Stated Complaint: WEAKNESS Time Seen by Physician: 10:46 ([facility] OUT PT LABS) Mode of Arrival: Walk-In Information Source: Patient Exam Limitations: No limitations Primary Care Provider: SIDDHARTHA BRITO Nursing and Triage Documentation Reviewed and Agree: Yes (NO GI BLEEDING) Neurological Complaint Exam - Weakness Complaint/Exam Onset: Gradual Duration: WEEKS Symptoms Are: Still present Timing: Constant Episodes Lasting: Weeks Initial Severity: Mild Current Severity: Mild Character: Reports: Weak Aggravating: Reports: None Alleviating: Reports: None Associated Signs and Symptoms: Denies: Nausea, Vomiting, Diaphoresis, Tinnitus, Chest pain, Short of air, Palpitations, Unsteady gait, GI blood loss, Visual changes, Decreased oral intake, Change in medication, Change in diet, OTC meds, Loss of balance Related History: Similar episode Cardiac Risk Factors: Reports: None CVA Risk Factors: Reports: None Related Surgical History: Reports: None JVD Present: No Carotid Bruit Present: No Rectal Heme Positive: No Nystagmus Present: No Gag Reflex Present: Yes Meningeal Signs Positive: No Focal Weakness: Present: None Focal Sensory Loss: Present: None Gait: Normal Babinski Sign: Negative Right, Negative Left Differential Diagnoses: Metabolic abnormalities, Vasovagal reaction Quality Indicators for Cardiac Chest Pain: EKG in 10min. Quality Indicators for AMI: EKG in 10min. Quality Indicator For Non-Traumatic Chest Pain/Syncope: EKG Performed Review of Systems - Review Of Systems Constitutional: Reports: Malaise, Weakness Eyes: Reports: No symptoms Ears, Nose, Mouth, Throat: Reports: No symptoms Respiratory: Reports: No symptoms Cardiac: Reports: No symptoms GI: Reports: No symptoms : Reports: No symptoms Musculoskeletal: Reports: No symptoms Skin: Reports: No symptoms Neurological: Reports: No symptoms Endocrine: Reports: No symptoms Hematologic/Lymphatic: Reports: No symptoms All Other Systems: Reviewed and Negative Past Medical History - Past Medical History Previously Healthy: Yes Endocrine: Reports: Dyslipidemia Cardiovascular: Reports: Hypertension, Other (PAD) Respiratory: Reports: COPD Hematological: Reports: None Gastrointestinal: Reports: None Genitourinary: Reports: None Neuro/Psych: Reports: Anxiety, Depression Musculoskeletal: Reports: Arthritis, Back Pain, Joint Pain Cancer: Reports: None Last Menstrual Period: hysterectomy - Surgical History General Surgical History: Reports: Stent Placement - Family History Family History: Reports: Unknown - Social History Smoking Status: Current every day smoker, Heavy tobacco smoker Hx Substance Use: No Alcohol Screening: Occasionally - Immunizations Tetanus Shot up to Date: Yes Physical Exam - Physical Exam Appearance: Well-appearing, No pain distress, Well-nourished Eyes: ARIEL, EOMI, Conjunctiva clear ENT: Ears normal, Nose normal, Oropharynx normal Respiratory: Airway patent, Breath sounds clear, Breath sounds equal, Respirations nonlabored Cardiovascular: RRR, Pulses normal, No rub, No murmur GI/: Soft, Nontender, No masses, Bowel sounds normal, No Organomegaly Musculoskeletal: Normal strength, ROM intact, No edema, No calf tenderness Skin: Warm, Dry, Normal color Neurological: Sensation intact, Motor intact, Reflexes intact, Cranial nerves intact, Alert, Oriented Psychiatric: Affect appropriate, Mood appropriate Interpretation - Radiology Interpretation Radiology Interpretation By: Radiologist Radiology Results: No acute changes Critical Care Note - Critical Care Note Total Time (mins): 0 Course - Course Hematology/Chemistry: 12/08/16 11:50 12/08/16 11:50 Orders, Labs, Meds: Lab Review 12/08/16 11:50 WBC 3.71 L RBC 2.60 L Hgb 6.7 L Hct 21.0 L MCV 80.8 L MCH 25.8 L MCHC 31.9 RDW Coeff of Tr 16.3 H Plt Count 185 Immature Gran % (Auto) 0.5 Neut % (Auto) 57.8 Lymph % (Auto) 28.6 [place] % (Auto) 12.1 H Eos % (Auto) 0.5 Baso % (Auto) 0.5 Immature Gran # (Auto) 0.0 Neut # 2.1 Lymph # 1.1 [place] # 0.5 Eos # 0.0 Baso # 0.0 PT 9.9 INR 0.97 APTT 21.7 L Sodium 143 Potassium 3.1 L Chloride 102 Carbon Dioxide 33 H Anion Gap 11.1 BUN 7 Creatinine 0.80 Estimated GFR (MDRD) 71.00 BUN/Creatinine Ratio 8.75 Glucose 97 Calcium 9.5 Total Bilirubin 0.32 AST 19 ALT 15 Alkaline Phosphatase 69 Total Creatine Kinase 37 Troponin I 0.0150 Total Protein 5.5 L Albumin 3.1 L Globulin 2.4 Albumin/Globulin Ratio 1.29 Orders Category Date Time Status EKG-(ED ONLY) Stat CARDIO 12/08/16 11:08 Completed PRBC LEUKOREDUCED ONCE CARE 12/08/16 12:44 Ordered CBC W/ AUTO DIFF Stat LAB 12/08/16 11:50 Completed COMPREHENSIVE METABOLIC PANEL Stat LAB 12/08/16 11:50 Completed CREATINE KINASE Stat LAB 12/08/16 11:50 Completed FERRITIN Routine LAB 12/08/16 12:42 Ordered FOLATE Routine LAB 12/08/16 12:42 Ordered IRON AND TIBC Routine LAB 12/08/16 12:42 Ordered PARTIAL THROMBOPLASTIN TIME Stat LAB 12/08/16 11:50 Completed PT WITH INR Stat LAB 12/08/16 11:50 Completed RETIC COUNT Routine LAB 12/08/16 12:42 Ordered TRANSFERRIN Routine LAB 12/08/16 12:42 Ordered TROPONIN I Stat LAB 12/08/16 11:50 Completed VITAMIN B12 Routine LAB 12/08/16 12:42 Ordered Pantoprazole Sodium [Protonix IV] 40 mg MEDS 12/08/16 21:00 Ordered 0.9 % Sodium Chloride [Sodium Chloride] 100 ml IV Q12HR CHEST, 2 VIEWS PA & LAT Stat RADS 12/08/16 11:[address] ABDOMEN/PELVIS WO CONTRAST Stat RADS 12/08/16 11:07 Completed Medications Generic Name Dose Route Start Last Admin Trade Name Freq PRN Reason Stop Dose Admin Pantoprazole Sodium 40 mg/ 100 mls @ 100 mls/hr 12/08/16 21:00 Sodium Chloride IV Q12HR AYAD Vital Signs: Temp Pulse Resp BP Pulse Ox 12/08/16 10:46 98.1 F 117 H 20 150/65 H 96 Departure - Departure Time of Disposition: 12:56 Disposition: ADMITTED INPATIENT Discharge Problem: Anemia Qualifiers: Anemia type: unspecified type Qualifier Code: (D64.9) Anemia, unspecified Instructions: Anemia (ED) Condition: Good Pt referred to PMD for follow-up: Yes Allergies/Adverse Reactions: Allergies No Known Allergies Allergy (Verified 12/08/16 10:52) Home Medications: Ambulatory Orders Cilostazol [Pletal] 100 mg PO BIDAC 12/09/12 Cyanocobalamin (Vitamin B-12) [B-12] 500 mcg PO DAILY 12/09/12 Potassium Chloride [Micro-K Cap] 5 meq PO DAILYWM 12/09/12 Roflumilast [Daliresp] 500 mcg PO DAILY 03/29/15 Ferrous Gluconate 324 mg PO BID 06/17/15 Duloxetine HCl [Cymbalta] 60 mg PO DAILY 06/18/15 Rosuvastatin Calcium [Crestor] 20 mg PO BEDTIME 12/27/15 Arformoterol Tartrate [Brovana] 1 vial IH Q12H PRN 05/27/16 Aspirin 81 mg PO DAILY 05/27/16 Carvedilol [Coreg] 25 mg PO BID 05/27/16 Cholecalciferol (Vitamin D3) [Vitamin D3] 400 unit PO DAILY 05/27/16 Clopidogrel Bisulfate [Plavix] 75 mg PO DAILY 05/27/16 Escitalopram Oxalate [Lexapro] 10 mg PO DAILY 05/27/16 Hydralazine HCl 100 mg PO BID 05/27/16 Triamterene/Hydrochlorothiazid [Dyazide] 1 cap PO DAILY 05/27/16 Pregabalin [Lyrica] 50 mg PO BID #60 capsule 06/01/16 Tiotropium Br/Olodaterol HCl [Stiolto Respimat Inhal [place]] 2.5 mcg IH DAILY 07/03 Alprazolam [Xanax] 0.25 mg PO BID PRN #10 tablet 11/09/16 Clonidine HCl 0.1 mg PO BID PRN #30 tablet 11/09/16 Losartan Potassium [Cozaar] 50 mg PO DAILY #30 tablet 11/09/16
[2016-12-08 13:42] LABS: FERRITIN 20.06 ng/mL (4.63-204.00); FOLATE 8.2 ng/mL (3.1-20.5)
[2016-12-08] MEDS: XOPENEX 1.25 MG NEB SCH ×2 (17:25→23:38)
[2016-12-08] MEDS: K-DUR PO SCH ×2 (17:51→21:04)
[2016-12-08] MEDS: APRESOLINE PO SCH (17:56)
[2016-12-08] MEDS: COREG PO SCH (17:56)
[2016-12-08] MEDS: PLETAL PO SCH (17:56)
[2016-12-08] MEDS ORDERED: NON-FORMULARY MEDICATION (Ferrous Gluconate [Ferrous Gluconate] 324 MG) PO SCH (21:00)
[2016-12-08] MEDS ORDERED: NON-FORMULARY MEDICATION (Carvedilol [Coreg] 25 MG) PO SCH ×22 (21:00)
[2016-12-08] MEDS ORDERED: PROTONIX IV 40 MG in SODIUM CHLORIDE 100 ML IV SCH (21:00)
[2016-12-08] MEDS: FERROUS SULFATE PO SCH (21:04)
[2016-12-08] MEDS: CRESTOR PO SCH (21:04)
[2016-12-08] MEDS: LYRICA PO SCH (21:04)
[2016-12-08] MEDS: CYMBALTA PO SCH (21:04)
[2016-12-08] MEDS: XANAX PO PRN (21:13)
[2016-12-09 02:10] LABS: BASOPHILS % (AUTO) 0.4 % (0.0-3.0); EOSINOPHILS # (AUTO) 0.1 K/ul (0.0-0.7); EOSINOPHILS % (AUTO) 1.5 % (0.0-7.0); HEMATOCRIT 26.1 % (37.0-47.0); HEMOGLOBIN 8.7 g/dl (12.0-16.0); IMMATURE GRANULOCYTE % (AUTO) 0.4 % (0.0-5.0); LYMPHOCYTES # (AUTO) 2.1 K/uL (0.60-3.4); LYMPHOCYTES % (AUTO) 38.7 (10.0-50.0); MEAN CORPUSCULAR HEMOGLOBIN 27.4 pg (27.0-31.0); MEAN CORPUSCULAR HGB CONC 33.3 (31.8-35.4); MEAN CORPUSCULAR VOLUME 82.1 fl (81.0-99.0); MONOCYTES # (AUTO) 0.9 K/uL (0.4-2.0); MONOCYTES % (AUTO) 16.8 (0-10); NEUTROPHILS # (AUTO) 2.2 K/ul (2.0-6.9); NEUTROPHILS % (AUTO) 42.2; PLATELET COUNT 161 10^3/uL (140-440); RED BLOOD COUNT 3.18 10^6/ul (4.20-5.40)
[2016-12-09 02:30] LABS: ALBUMIN 2.8 g/dL (3.4-5.0); ALBUMIN/GLOBULIN RATIO 1.33; ANION GAP 12.7; BILIRUBIN,TOTAL 0.68 mg/dL (0.00-1.20); BUN/CREATININE RATIO 14.94; CALCIUM 8.7 mg/dL (8.2-10.2); CREATININE 0.87 mg/dL (0.60-1.30); POTASSIUM 3.7 mmol/L (3.5-5.10); TOTAL PROTEIN 4.9 g/dL (5.8-8.1)
[2016-12-09] MEDS: PLETAL PO SCH ×2 (05:31→17:27)
[2016-12-09] MEDS: APRESOLINE PO SCH ×2 (05:31→17:27)
[2016-12-09] MEDS: XOPENEX 1.25 MG NEB SCH ×4 (05:47→23:10)
[2016-12-09] MEDS ORDERED: MICRO-K CAP PO SCH (08:00)
[2016-12-09] MEDS ORDERED: NON-FORMULARY MEDICATION (Losartan Potassium 50 MG) PO SCH (09:00)
--- NOTE | 2016-12-09 09:20 | PCM.PROG ---
Attending Provider: ATTENDING PROVIDER: Dr. SIDDHARTHA BRITO DATE OF SERVICE: 12/09/16 SUBJECTIVE: This 71 year old WHITE/ F was hospitalized 12/08/16 with severe anemia. The patient's condition has steadily improved. Hemoglobin 8.7, hematocrit 26. No evidence of active GI bleed. The patient's total iron binding capacity was borderline high with low iron level indicating iron deficiency anemia likely from blood loss. She has several risk factors for peptic ulcer disease like smoking, poor nutritional status. Strongly advised the patient not to take non steroidal antinflammatories. The patient is on Protonix and iron supplements. REVIEW OF SYSTEMS: CONSTITUTIONAL: No night sweats. No fatigue, malaise, lethargy. No fever or chills. HEENT: Eyes: No visual changes. No eye pain. No eye discharge. ENT: No runny nose. No epistaxis. No sinus pain. No odynophagia. No congestion. RESPIRATORY: No cough, no congestion. No hemoptysis. No shortness of breath. CARDIOVASCULAR: No angina symptoms. No CHF symptoms. No atypical chest pain for CAD. No palpitations. No orthopnea.. GASTROINTESTINAL: No abdominal pain. No nausea or vomiting. No diarrhea or constipation. No hematemesis. No hematochezia. GENITOURINARY: No urgency. No frequency. No dysuria. No hematuria. No obstructive symptoms. No discharge. No pain. No significant abnormal bleeding. MUSCULOSKELETAL: No musculoskeletal pain; no joint swelling. NEUROLOGICAL: Awake, alert, oriented to time, place and person. No headache. No neck pain. No syncope. No seizures. No dizziness. PSYCHIATRIC: Not anxious. No depression. No suicidal thoughts. No homicidal thoughts. SKIN: No rash. No lesions. No wounds. ENDOCRINE: No unexplained weight loss. No weight gain. HEMATOLOGIC/LYMPHATIC: No anemia. No purpura. No petechiae. No prolonged or excessive bleeding. No palpable lymph nodes. PHYSICAL EXAMINATION: GENERAL: The patient is awake, alert and oriented, sitting on the side of the bed in no distress. VITAL SIGNS: Temperature 97.0 F, Pulse 89, Respiratory Rate 19, BP 150/70, Pulse Ox 99% HEENT: Head normocephalic, atraumatic. Eyes: Extraocular muscles are intact. Pupils are equal, round and reactive to light and accommodation. Ears: No lesions. Nose appeared normal. Throat: No exudate or erythema. NECK: Supple. No JVD, no carotid bruit. No lymphadenopathy or thyromegaly. LUNGS: Clear to auscultation. Percussion note normal. Chest symmetrical. HEART: S1, S2, no S3. No murmurs. No cyanosis or clubbing. No ascites. Pulses: Dorsalis pedis and posterior tibial pulses +1 to +2 both sides. ABDOMEN: Soft. Non-tender. Bowel sounds active. No CVA tenderness. No mass felt. EXTREMITIES: No edema. Full range of motion of all extremities, equal. NEUROLOGIC: No focal deficit. Cranial nerves II through XII are grossly intact. No headache, no double vision or headache. SKIN: Not dry. Intact. Turgor-normal. LYMPHATIC: No palpable lymph nodes/no lymphedema. MUSCULOSKELETAL: Normal joints with no swelling. Muscle tone is normal. LAB REVIEW: 12/09/16 02:08 12/09/16 02:08 12/09/16 02:08: WBC 5.30, RBC 3.18 L, Hgb 8.7 L, Hct 26.1 L, MCV 82.1, MCH 27.4 , MCHC 33.3, RDW Coeff of Tr 15.9 H, Plt Count 161, Immature Gran % (Auto) 0.4 , Neut % (Auto) 42.2, Lymph % (Auto) 38.7, [place] % (Auto) 16.8 H, Eos % (Auto) 1.5, Baso % (Auto) 0.4, Immature Gran # (Auto) 0.0, Neut # 2.2, Lymph # 2.1, [place] # 0.9, Eos # 0.1, Baso # 0.0, Sodium 143, Potassium 3.7, Chloride 105, Carbon Dioxide 29, Anion Gap 12.7, BUN 13, Creatinine 0.87, Estimated GFR (MDRD ) 64.00, BUN/Creatinine Ratio 14.94, Glucose 105, Calcium 8.7, Total Bilirubin 0.68, AST 17, ALT 14, Alkaline Phosphatase 61, Total Protein 4.9 L, Albumin 2.8 L, Globulin 2.1, Albumin/Globulin Ratio 1.33 12/08/16 14:25: Blood Type A POSITIVE, Antibody Screen Negative, Crossmatch (AHG ) See Detail ASSESSMENT: 1. Anemia/iron deficiency likely from GI blood loss. Will look into colonoscopy status with EGD and refer her to acute care clinical nurse specialist. 2. Will keep the patient here to monitor hemoglobin and hematocrit. 3. Cardiovascular and vascular status is stable. The patient is off aspirin and Plavix for now. PLAN: 1. Stool for occult blood 2. Continue Iron supplements 3. Protonix b.i.d. 4. Advised against the use of NSAIDS 5. Encouraged the patient to eat three meals Plan and coordination of the patient's care discussed in the presence of Fuel Verification Technician and nurse. CONDITION: Stable SCRIBED BY: KENISHA FRY Dredge Pump Operator scribed while in presence of service performed by Dr. SIDDHARTHA BRITO on 12/09/16 ([id number])
[2016-12-09] MEDS: PROTONIX PO SCH ×2 (09:25→17:27)
[2016-12-09] MEDS: DYAZIDE PO SCH (09:25)
[2016-12-09] MEDS: COZAAR PO SCH (09:25)
[2016-12-09] MEDS: LYRICA PO SCH ×2 (09:26→20:52)
[2016-12-09] MEDS: COREG PO SCH ×2 (09:26→17:27)
[2016-12-09] MEDS: FERROUS SULFATE PO SCH ×2 (09:26→20:52)
[2016-12-09] MEDS: DALIRESP PO SCH (09:27)
[2016-12-09] MEDS: LEXAPRO PO SCH (09:27)
[2016-12-09] MEDS: K-DUR PO SCH ×3 (09:30→17:27)
[2016-12-09] MEDS: CYMBALTA PO SCH (10:14)
--- NOTE | 2016-12-09 11:48 | PN ---
DATE OF SERVICE: 12/08/16 ADMIT NOTE SUBJECTIVE: The patient is a 71 year old white female had lab test done when she was seen in the office yesterday. The hgb and hct came back as 6.7 with hct of 21. The patient was advised to go to the emergency room. The patient's lab tests were redrawn and at that time her hgb was 6.7 with hct 21 with WBC 3,700 RBC 2.6 million. The patient's Retic count was 2.69 normal and the rest of the labs were within normal range. The patient did not have any history of having melena abdominal pain. Rectal was declined. CT scan of the abdomen done in the emergency room showed no bowel obstruction and no other positive findings accounting for her blood loss. The patient was advised hospitalization. I saw the patient in the emergency room and she agreed. The patient had anemia profile , serum iron was 14 which is low with TIBC of 311 which was high so that indicates that the patient has iron deficiency anemia. REVIEW OF SYSTEMS: CONSTITUTIONAL: No night sweats. No malaise, lethargy. No fever or chills. Weakness and fatigue. HEENT: Eyes: No visual changes. No eye pain. No eye discharge. ENT: No runny nose. No epistaxis. No sinus pain. No sore throat. No odynophagia. No congestion. RESPIRATORY: Mild cough as usual, no congestion. No hemoptysis. No shortness of breath. CARDIOVASCULAR: No angina symptoms. No CHF symptoms. No atypical chest pain for CAD. No palpitations. No orthopnea.Pounding of the heart at times with exertion. No PND. GASTROINTESTINAL: No abdominal pain. No nausea or vomiting. No diarrhea or constipation. No hematemesis. No hematochezia. Good appetite. No melena. GENITOURINARY: No urgency. No frequency. No dysuria. No hematuria. No obstructive symptoms. No discharge. No pain. No significant abnormal bleeding. MUSCULOSKELETAL: No musculoskeletal pain; no joint swelling. Weakness generalized as usual. NEUROLOGICAL: No headache. No neck pain. No syncope. No seizures. No dizziness. PSYCHIATRIC: Not anxious. No depression. No suicidal thoughts. No homicidal thoughts. SKIN: No rash. No lesions. No wounds. ENDOCRINE: No unexplained weight loss. No weight gain. HEMATOLOGIC/LYMPHATIC: No anemia. No purpura. No petechiae. No prolonged or excessive bleeding. No palpable lymph nodes. PHYSICAL EXAMINATION: GENERAL: The patient is oriented to time, place and person. VITAL SIGNS: Temperature 98.4, pulse 80, respiratory rate 15, blood pressure 150/70 , patient looks somewhat pale. HEENT: Head normocephalic, atraumatic. Eyes: Extraocular muscles are intact. Pupils are equal, round and reactive to light and accommodation. Ears: No lesions. Nose appeared normal. Throat: No exudate or erythema. NECK: Supple. No JVP, no carotid bruit. No lymphadenopathy or thyromegaly. LUNGS: Decreased breaths sounds but clear to auscultation. Percussion note normal. Chest symmetrical. HEART: S1, S2, no S3. No murmurs. No cyanosis or clubbing. No ascites. Pulses: Dorsalis pedis and posterior tibial pulses +1 to +2 both sides. ABDOMEN: Soft. Nontender. Bowel sounds active. No CVA tenderness. No mass felt. EXTREMITIES: No edema. Full range of motion of all extremities, equal. NEUROLOGIC: No focal deficit. Cranial nerves II through XII are grossly intact. No headache, no double vision or headache. SKIN: Not dry. Intact. Turgor - normal. LYMPHATIC: No palpable lymph nodes/no lymphedema. MUSCULOSKELETAL: Normal joints with no swelling. Muscle tone is normal. ASSESSMENT: 1. Severe anemia, etiology unknown but seems to be microcytic hypochromic iron deficiency type likely from GI blood loss. The patient's doesn't use any Nonsteroidal anti-inflammatory, she is on aspirin and Plavix for her peripheral arterial disease. 2. Smoking 3. Severe chronic lung disease 4. Peripheral arterial disease 5. Dyslipidemia 6. Severe hypertension PLAN: 1. Admit the patient 2. Routine Telemetry orders with EKG Telemetry 3. Type and cross match two units of packed red cells 4. Protonix 40mg twice a day 5. Transfuse two units of packed red cells 6. Iron supplements 7. Continue the rest of the medications except Plavix and Aspirin CONDITION: Stable. TIME SPENT: More than 30 minutes. Plan and coordination of the patient's care discussed in the presence of nurse. KEVIN
--- NOTE | 2016-12-09 12:37 | HP ---
DATE OF SERVICE: 12/08/16 SUBJECTIVE: The patient is a 71 year old white female had lab test done when she was seen in the office yesterday. The hgb and hct came back as 6.7 with hct of 21. The patient was advised to go to the emergency room. The patient's lab tests were redrawn and at that time her hgb was 6.7 with hct 21 with WBC 3,700 RBC 2.6 million. The patient's Retic count was 2.69 normal and the rest of the labs were within normal range. The patient did not have any history of having melena abdominal pain. Rectal was declined. CT scan of the abdomen done in the emergency room showed no bowel obstruction and no other positive findings accounting for her blood loss. The patient was advised hospitalization. I saw the patient in the emergency room and she agreed. The patient had anemia profile , serum iron was 14 which is low with TIBC of 311 which was high so that indicates that the patient has iron deficiency anemia. REVIEW OF SYSTEMS: CONSTITUTIONAL: No night sweats. No malaise, lethargy. No fever or chills. Weakness and fatigue. HEENT: Eyes: No visual changes. No eye pain. No eye discharge. ENT: No runny nose. No epistaxis. No sinus pain. No sore throat. No odynophagia. No congestion. RESPIRATORY: Mild cough as usual, no congestion. No hemoptysis. No shortness of breath. CARDIOVASCULAR: No angina symptoms. No CHF symptoms. No atypical chest pain for CAD. No palpitations. No orthopnea.Pounding of the heart at times with exertion. No PND. GASTROINTESTINAL: No abdominal pain. No nausea or vomiting. No diarrhea or constipation. No hematemesis. No hematochezia. Good appetite. No melena. GENITOURINARY: No urgency. No frequency. No dysuria. No hematuria. No obstructive symptoms. No discharge. No pain. No significant abnormal bleeding. MUSCULOSKELETAL: No musculoskeletal pain; no joint swelling. Weakness generalized as usual. NEUROLOGICAL: No headache. No neck pain. No syncope. No seizures. No dizziness. PSYCHIATRIC: Not anxious. No depression. No suicidal thoughts. No homicidal thoughts. SKIN: No rash. No lesions. No wounds. ENDOCRINE: No unexplained weight loss. No weight gain. HEMATOLOGIC/LYMPHATIC: No anemia. No purpura. No petechiae. No prolonged or excessive bleeding. No palpable lymph nodes. PERSONAL/FAMILY/SOCIAL HISTORY: The patient is and lives with the . The patient smokes heavy, no alcohol abuse. The patient tries to do all activity of daily living. The patient has a lot of stress because she takes care of her kids grandkids without much help from her daughter. MEDICAL/SURGICAL HISTORY: The patient has history of dyslipidemia Heavy smoking Severe chronic lungs disease Repeated hospitalization for acute bronchitis/pneumonitis Severe peripheral arterial disease Generalized anxiety disorder Abuse of pain medications Dementia COPD Chronic bronchitis with smoking Anemia Depression Dyslipidemia Aortoiliac bypass [place] [address]. Guzman Status post hysterectomy MEDICATIONS: Lexapro 10mg PO daily Otilia 540mg Daily Carvedilol 12.5mg PO twice a day Crestor 10mg PO daily Lyrica 100mg PO twice a day Budesonide actuation aerosol powder one puff twice a day Daliresp 500mcg PO daily Ventolin HFA 90mcg PO daily Brovana inhalation twice a day Cymbalta 60mg PO daily [place] one three times a day by Pain Management Pletal 100mg PO twice a day Xanax 0.25mg three times a day Vitamin D 400 units PO daily PHYSICAL EXAMINATION: GENERAL: The patient is oriented to time, place and person. VITAL SIGNS: Temperature 98.4, pulse 80, respiratory rate 15, blood pressure 150/70 , patient looks somewhat pale. HEENT: Head normocephalic, atraumatic. Eyes: Extraocular muscles are intact. Pupils are equal, round and reactive to light and accommodation. Ears: No lesions. Nose appeared normal. Throat: No exudate or erythema. NECK: Supple. No JVP, no carotid bruit. No lymphadenopathy or thyromegaly. LUNGS: Decreased breaths sounds but clear to auscultation. Percussion note normal. Chest symmetrical. HEART: S1, S2, no S3. No murmurs. No cyanosis or clubbing. No ascites. Pulses: Dorsalis pedis and posterior tibial pulses +1 to +2 both sides. ABDOMEN: Soft. Nontender. Bowel sounds active. No CVA tenderness. No mass felt. EXTREMITIES: No edema. Full range of motion of all extremities, equal. NEUROLOGIC: No focal deficit. Cranial nerves II through XII are grossly intact. No headache, no double vision or headache. SKIN: Not dry. Intact. Turgor - normal. LYMPHATIC: No palpable lymph nodes/no lymphedema. MUSCULOSKELETAL: Normal joints with no swelling. Muscle tone is normal. ASSESSMENT: 1. Severe anemia, etiology unknown but seems to be microcytic hypochromic iron deficiency type likely from GI blood loss. The patient's doesn't use any Nonsteroidal anti-inflammatory, she is on aspirin and Plavix for her peripheral arterial disease. 2. Smoking 3. Severe chronic lung disease 4. Peripheral arterial disease 5. Dyslipidemia 6. Severe hypertension PLAN: 1. Admit the patient 2. Routine Telemetry orders with EKG Telemetry 3. Type and cross match two units of packed red cells 4. Protonix 40mg twice a day 5. Transfuse two units of packed red cells 6. Iron supplements 7. Continue the rest of the medications except Plavix and Aspirin CONDITION: Stable. TIME SPENT: More than 30 minutes. Plan and coordination of the patient's care discussed in the presence of nurse. KEVIN
[2016-12-09] MEDS: CRESTOR PO SCH (20:52)
[2016-12-09] MEDS: XANAX PO PRN (20:52)
[2016-12-09] MEDS ORDERED: CYMBALTA PO SCH (21:00)
[2016-12-10] MEDS: XOPENEX 1.25 MG NEB SCH (05:17)
[2016-12-10] MEDS: PROTONIX PO SCH (05:48)
[2016-12-10] MEDS: PLETAL PO SCH (05:48)
[2016-12-10] MEDS: APRESOLINE PO SCH (05:49)
[2016-12-10 05:50] LABS: BASOPHILS % (AUTO) 0.4 % (0.0-3.0); EOSINOPHILS % (AUTO) 0.7 % (0.0-7.0); HEMOGLOBIN 9.2 g/dl (12.0-16.0); IMMATURE GRANULOCYTE % (AUTO) 0.2 % (0.0-5.0); LYMPHOCYTES # (AUTO) 1.6 K/uL (0.60-3.4); LYMPHOCYTES % (AUTO) 29.1 (10.0-50.0); MEAN CORPUSCULAR HEMOGLOBIN 27.1 pg (27.0-31.0); MEAN CORPUSCULAR HGB CONC 32.9 (31.8-35.4); MEAN CORPUSCULAR VOLUME 82.4 fl (81.0-99.0); MONOCYTES # (AUTO) 0.7 K/uL (0.4-2.0); MONOCYTES % (AUTO) 12.6 (0-10); NEUTROPHILS # (AUTO) 3.1 K/ul (2.0-6.9); PLATELET COUNT 157 10^3/uL (140-440); WHITE BLOOD COUNT 5.49 K/ul (4.6-10.2)
[2016-12-10 06:15] LABS: ALBUMIN/GLOBULIN RATIO 1.58; ANION GAP 9.9; BILIRUBIN,TOTAL 0.31 mg/dL (0.00-1.20); BUN/CREATININE RATIO 13.18; CALCIUM 8.9 mg/dL (8.2-10.2); CREATININE 0.91 mg/dL (0.60-1.30); POTASSIUM 3.9 mmol/L (3.5-5.10); TOTAL PROTEIN 4.9 g/dL (5.8-8.1)
[2016-12-10] MEDS: LEXAPRO PO SCH (08:47)
[2016-12-10] MEDS: COREG PO SCH (08:47)
[2016-12-10] MEDS: FERROUS SULFATE PO SCH (08:48)
[2016-12-10] MEDS: COZAAR PO SCH (08:48)
[2016-12-10] MEDS: K-DUR PO SCH (08:48)
[2016-12-10] MEDS: DYAZIDE PO SCH (08:48)
[2016-12-10] MEDS: LYRICA PO SCH (08:48)
[2016-12-10] MEDS: DALIRESP PO SCH (08:49)
--- NOTE | 2016-12-10 10:29 | CM.DICTOOL ---
ADMISSION: 12/08/16 12:56 DISCHARGE: December 10, 2016 DATE OF SERVICE: 12/10/16 FINAL DIAGNOSIS Anemia, transfusion of 2 units Hypokalemia Severe CLD, oxygen dependent Pulmonary Nodule, 4mm per CT Neuropathy Hypertension Dyslipidemia Dperession Anxiety Osteoarthritis DJD Spine Carotid Occlusive Disease Infrarenal Artery Stenosis Hysterectomy, 1989 Aortoiliac Bypass Bilateral Fem-Pop AAA, 1997 LVH with LVEF 53% (October,) LAST VITALS Temp Pulse Resp BP Pulse Ox 98.4 F 93 H 18 134/75 98 12/10/16 05:00 12/10/16 05:00 12/10/16 07:37 12/10/16 05:00 12/10/16 05:14 ACTIVE HOME MEDICATIONS Alprazolam (Xanax) 0.25 mg PO BID PRN PRN Reason: Anxiety Last Admin: 12/09/16 20:52 Dose: 0.25 mg Carvedilol (Coreg) 25 mg PO BIDWM [facility] Last Admin: 12/10/16 08:47 Dose: 25 mg Cilostazol (Pletal) 100 mg PO BIDAC [facility] Last Admin: 12/10/16 05:48 Dose: 100 mg Duloxetine HCl (Cymbalta) 60 mg PO BEDTIME [facility] Last Admin: 12/09/16 20:52 Dose: 60 mg Escitalopram Oxalate (Lexapro) 10 mg PO DAILY [facility] Last Admin: 12/10/16 08:47 Dose: 10 mg Ferrous Sulfate (Ferrous Sulfate) 324 mg PO BID [facility] Last Admin: 12/10/16 08:48 Dose: 324 mg Hydralazine HCl (Apresoline) 50 mg PO Q12H [facility] Last Admin: 12/10/16 05:49 Dose: 50 mg Losartan Potassium (Cozaar) 50 mg PO DAILY [facility] Last Admin: 12/10/16 08:48 Dose: 50 mg Non-Formulary Medication (Tiotropium Br/Olodaterol Hcl [Stiolto Respimat Inhal [place]]) 2.5 mcg IH DAILY [facility] Last Admin: 12/10/16 08:49 Dose: Not Given Potassium Chloride 5 meq PO DAILY [facility] Last Admin: Pregabalin (Lyrica) 50 mg PO BID [facility] Last Admin: 12/10/16 08:48 Dose: 50 mg Roflumilast (Daliresp) 500 mcg PO DAILY [facility] Last Admin: 12/10/16 08:49 Dose: 500 mcg Rosuvastatin Calcium (Crestor) 20 mg PO BEDTIME [facility] Last Admin: 12/09/16 20:52 Dose: 20 mg Triamterene/HCTZ (Dyazide) 1 cap PO DAILY [facility] Last Admin: 12/10/16 08:48 Dose: 1 cap Cyanocobalamin (Vitamin B-12) 500 mcg DAILY Last Admin: Arformoterol Tartrate (Brovana) 1 vial Q 12 H PRN Last Admin: Aspirin 81 mg PO DAILY Last Admin: Choecalciferol (Vitamin D3) 400 unit PO DAILY Last Admin: Clonidine HCL 0.1 mg PO BID PRN for Hypertension Last Admin: ALLERGIES No Known Allergies Allergy (Verified 12/08/16 10:52) NEW PRESCRIPTIONS: Protonix 40 mg daily Carafate 1 Gram TID for 10 days SMOKING: Advised to stop smoking DISEASE SPECIFIC EDUCATION: Anemia Medications Appointments LAB REVIEW: 12/10/16 05:30 12/10/16 05:30 12/10/16 05:30: WBC 5.49, RBC 3.40 L, Hgb 9.2 L, Hct 28.0 L, MCV 82.4, MCH 27.1 , MCHC 32.9, RDW Coeff of Tr 16.2 H, Plt Count 157, Immature Gran % (Auto) 0.2 , Neut % (Auto) 57.0, Lymph % (Auto) 29.1, [place] % (Auto) 12.6 H, Eos % (Auto) 0.7, Baso % (Auto) 0.4, Immature Gran # (Auto) 0.0, Neut # 3.1, Lymph # 1.6, [place] # 0.7, Eos # 0.0, Baso # 0.0, Sodium 143, Potassium 3.9, Chloride 105, Carbon Dioxide 32 H, Anion Gap 9.9, BUN 12, Creatinine 0.91, Estimated GFR (MDRD ) 61.00, BUN/Creatinine Ratio 13.18, Glucose 101, Calcium 8.9, Total Bilirubin 0.31, AST 17, ALT 12, Alkaline Phosphatase 61, Total Protein 4.9 L, Albumin 3.0 L, Globulin 1.9, Albumin/Globulin Ratio 1.58 PLAN: Discharge home Diet: Regular Activity: Resume as tolerated Medication changes: Decrease Hydralazine to 50 mg BID Stop Plavix until seen by GI (Tammie Potts APRN for Dr. Abdi) Appointments: Dr. Dawson on December 14 at 1:15 pm. Have outpatient labs done the morning of the at [facility] Dr. Abdi (Tammie Potts APRN) on December 17, 2016 at 2 pm. Mrs. Hernandez is alert and oriented x 3. She is independent with Activities of Daily Living. She is oxygen dependent and has oxygen at home with portability. She transfers to the chair without assistance of the nursing staff. She is ambulatory in the room. She does not require any assistive devices, but reports she tires easily with long distance ambulation. She states she is considering a rollator for use on these occasions. Meal intakes are good at 75% of most meals. She denies dizziness or nausea. Arnold Dawson MD Rupal Perez APRN
[2016-12-10 10:30] VITALS: BP 132/60; TEMP 97.2
--- NOTE | 2016-12-10 11:17 | PCM.PROG ---
Attending Provider: ATTENDING PROVIDER: Dr. SIDDHARTHA BRITO DATE OF SERVICE: 12/10/16 SUBJECTIVE: This 71 year old WHITE/ F was hospitalized 12/08/16. The patient is seen with Rupal, Nurse Practitioner. The patient is alert, lying in bed. She states she is feeling some better and is ready to go home. Hemoglobin is stable after transfusion, up to 9.2. REVIEW OF SYSTEMS: CONSTITUTIONAL: Weakness improving. No night sweats. No fever or chills. HEENT: Eyes: No visual changes. No eye pain. No eye discharge. ENT: No runny nose. No epistaxis. No sinus pain. No odynophagia. No congestion. RESPIRATORY: No cough, no congestion. No hemoptysis. Shortness of breath as usual. CARDIOVASCULAR: No angina symptoms. No CHF symptoms. No atypical chest pain for CAD. No palpitations. No orthopnea.. GASTROINTESTINAL: No abdominal pain. No nausea or vomiting. No diarrhea or constipation. No hematemesis. No hematochezia. GENITOURINARY: No urgency. No frequency. No dysuria. No hematuria. No obstructive symptoms. No discharge. No pain. No significant abnormal bleeding. MUSCULOSKELETAL: No musculoskeletal pain; no joint swelling. NEUROLOGICAL: Awake, alert, oriented to time, place and person. No headache. No neck pain. No syncope. No seizures. No dizziness. PSYCHIATRIC: Not anxious. No depression. No suicidal thoughts. No homicidal thoughts. SKIN: No rash. No lesions. No wounds. ENDOCRINE: No unexplained weight loss. No weight gain. HEMATOLOGIC/LYMPHATIC: No anemia. No purpura. No petechiae. No prolonged or excessive bleeding. No palpable lymph nodes. PHYSICAL EXAMINATION: GENERAL: The patient is awake, alert and oriented, lying in bed in no distress. VITAL SIGNS: Temperature 98.4 F, Pulse 93, Respiratory Rate 13, BP 134/75, Pulse Ox 98% HEENT: Head normocephalic, atraumatic. Eyes: Extraocular muscles are intact. Pupils are equal, round and reactive to light and accommodation. Ears: No lesions. Nose appeared normal. Throat: No exudate or erythema. NECK: Supple. No JVD, no carotid bruit. No lymphadenopathy or thyromegaly. LUNGS: Diminished breath sounds bilaterally. Clear to auscultation. Percussion note normal. Chest symmetrical. HEART: S1, S2, no S3. No murmurs. No cyanosis or clubbing. No ascites. Pulses: Dorsalis pedis and posterior tibial pulses +1 to +2 both sides. ABDOMEN: Soft. Non-tender. Bowel sounds active. No CVA tenderness. No mass felt. EXTREMITIES: No edema. Full range of motion of all extremities, equal. NEUROLOGIC: No focal deficit. Cranial nerves II through XII are grossly intact. No headache, no double vision or headache. SKIN: Not dry. Intact. Turgor-normal. LYMPHATIC: No palpable lymph nodes/no lymphedema. MUSCULOSKELETAL: Normal joints with no swelling. Muscle tone is normal. LAB REVIEW: 12/10/16 05:30 12/10/16 05:30 12/10/16 05:30: WBC 5.49, RBC 3.40 L, Hgb 9.2 L, Hct 28.0 L, MCV 82.4, MCH 27.1 , MCHC 32.9, RDW Coeff of Tr 16.2 H, Plt Count 157, Immature Gran % (Auto) 0.2 , Neut % (Auto) 57.0, Lymph % (Auto) 29.1, [place] % (Auto) 12.6 H, Eos % (Auto) 0.7, Baso % (Auto) 0.4, Immature Gran # (Auto) 0.0, Neut # 3.1, Lymph # 1.6, [place] # 0.7, Eos # 0.0, Baso # 0.0, Sodium 143, Potassium 3.9, Chloride 105, Carbon Dioxide 32 H, Anion Gap 9.9, BUN 12, Creatinine 0.91, Estimated GFR (MDRD ) 61.00, BUN/Creatinine Ratio 13.18, Glucose 101, Calcium 8.9, Total Bilirubin 0.31, AST 17, ALT 12, Alkaline Phosphatase 61, Total Protein 4.9 L, Albumin 3.0 L, Globulin 1.9, Albumin/Globulin Ratio 1.58 ASSESSMENT: 1. Anemia/iron deficiency likely from GI blood loss. Will look into colonoscopy status with EGD and refer her to senior ui developer. 2. Will keep the patient here to monitor hemoglobin and hematocrit. 3. Cardiovascular and vascular status is stable. The patient is off aspirin and Plavix for now. PLAN: 1. Discharge home 2. The patient is scheduled to see a GI specialist as an outpatient, Tammie Katlyn, Nurse Practitioner at [facility] on 12/17/16 at 2 pm. 3. Repeat CBC, CMP on Wednesday prior to office visit. 4. Followup with Dr. Brito in his office next week. Plan and coordination of the patient's care discussed in the presence of Experience Designer and nurse. CONDITION: Stable SCRIBED BY: KENISHA FRY Child Development Professor scribed while in presence of service performed by Dr. SIDDHARTHA BRITO/RUPAL TRAN APRN on 12/10/16 ([id number])
--- NOTE | 2016-12-11 10:00 | PN ---
12/08/16: Level 5 12/09/16: Intermediate 12/10/16: D as in discharge. MTDD
--- NOTE | 2016-12-11 10:23 | DS ---
DATE OF SERVICE: 12/10/16 FINAL DIAGNOSIS: 1. Anemia, transfusion of 2 units 2. Hypokalemia 3. Severe CLD, oxygen dependant 4. Pulmonary Nodule, 4mm per CT 5. Neuropathy 6. Hypertension 7. Dyslipidemia 8. Depression 9. Anxiety 10.Osteoarthritis 11.DJD Spine 12. Caroid occlusive disease 13.Infrarenal artery stenosis 14. Hysterectomy, 1989 15. Bilateral Fem-Pop 16. AAA, 1997 17. LVH with LVEF 53% () LAST VITALS: Temperature 98.4, pulse 93, respiratory rate 18, blood pressure 134/75 and pulse ox 98%. DISCHARGE INSTRUCTIONS: Discharge home. Dr. Dawson on December 14 at 1:15pm, have outpatient labs done the morning of the at [facility]. MEDICATIONS AT DISCHARGE: Xanax 0.25mg PO twice a day PRN Coreg 25mg PO twice a day Pletal 100mg PO twice a day Cymbalta 60mg Po bedtime Lexapro 10mg Po daily Ferrous Sulfate 324mg PO twice a day Apresoline 50mg PO Q 12 hours Cozaar 50mg PO daily Stiolto Respimat Inhaler spray 2.5mcg inhalation daily Potassium Chloride 5meeq Po twice a day Lyrica 50mg PO twice a day Daliresp 500mcg PO daily Crestor 20mg Po bedtime Dyazide 1 capsules PO daily Vitamin B12 500mcg daily Brovana 1 vial Q 12 PRN Aspirin 81mg PO daily Vitamin D3 400 unit PO daily Clonidine HCL 0.1mg Po twice a day PRN for hypertension ALLERGIES: No known allergies NEW PRESCRIPTIONS: Protonix 40mg daily Carafate 1 gram three times a day 10 days DIET INSTRUCTIONS: Regular ACTIVITY: Resume as tolerated SMOKING: Advised to stop smoking DISEASE SPECIFIC EDUCATION: Anemia Medications Appointments HOSPITAL COURSE: The patient is a 71 year old white female hospitalized with severe anemia. The patient has iron deficiency anemia likely from GI blood loss. She has several risk factors for peptic ulcer disease and she has been aspirin and Plavix along with she has smoking and maybe she is taking non-steroidal anti-inflammatory. The patient doesn't eat her meals regularly. The patient was given two units of packed red cells. Her hgb from 6.7 went up to 9.2 with hct of 28. There is no evidence of active GI bleed. She is on iron supplements, Protonix, Carafate. She will be followed as an outpatient. She already has an appointment with Customer Quality Specialist. She is advised to avoid non-steroidal anti-inflammatory. TIME SPENT: More than 60 minutes. KEVIN
--- NOTE | 2016-12-17 11:44 | DS ---
DATE OF SERVICE: 12/10/16 FINAL DIAGNOSIS: 1. ANEMIA, TRANSFUSION OF 2 UNITS (IgM Deficiency) 2. HYPOKALEMIA 3. SEVERE CLD, OXYGEN DEPENDENT 4. PULMONARY NODULE, [address] 5. NEUROPATHY 6. HYPERTENSION 7. DYSLIPIDEMIA 8. DEPRESSION 9. ANXIETY 10. 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 CAROTID OCCLUSIVE DISEASE 13. INFRARENAL ARTERY STENOSIS 14. HYSTERECTOMY, 1989 15. AORTOILIAC BYPASS 16. BILATERAL FEM-POP 17. AAA, 1997 18. LVH WITH LVEF 53% (October,) DISCHARGE INSTRUCTIONS: Followup appointment with Dr. Dawson on 12/14 at 1:15 p.m. Have outpatient labs done this morning of the at [facility]. Dr. Abdi ([facility]) on December 17 at 2 p.m. MEDICATIONS AT DISCHARGE: 1. Cyanocobalamin (Vitamin B12) 500 mcg p.o. daily 2. Cilostazol (Pletal) 100 mg p.o. b.i.d. a.c. 3. Potassium (Micro-K) 5 mEq p.o. daily with meal 4. Roflumilast (Daliresp) 500 mcg p.o. daily 5. Ferrous Gluconate 324 mg p.o. b.i.d. 6. Duloxetine (Cymbalta) 60 mg p.o. daily 7. Rosuvastatin (Crestor) 20 mg p.o. bedtime 8. Arformoterol (Brovana) one vial IH q.12h p.r.n. 9. Triamterene/Hydrochlorothiazide (Dyazide) one cap p.o. daily 10. Cholecalciferol (Vitamin D3 400 unit p.o. daily 11. Escitalopram (Lexapro) 10 mg p.o. daily 12. Aspirin 81 mg p.o. daily 13. Carvedilol (Coreg) 25 mg p.o. b.i.d. 14. Pregabalin (Lyrica) 50 mg p.o. b.i.d. 15. Tiotropium Br/Ologaterol 2.5 mcg IH daily 16. Losartan (Cozaar) 50 mg p.o. daily 17. Clonidine 0.1 mg p.o. b.i.d. p.r.n. 18. Alprazolam (Xanax) 0.25 mg p.o. b.i.d. p.r.n. NEW PRESCRIPTIONS: 1. Protonix 40 mg daily 2. Carafate 1 gm t.i.d. for 10 days MEDICATION CHANGES: 1. Decrease Hydralazine to 50 mg b.i.d. 2. Stop Plavix until seen by GI (Tammie Potts APRN, for Dr. Abdi) DIET INSTRUCTIONS: Regular ACTIVITY: Resume as tolerated SMOKING: Advised to stop smoking DISEASE SPECIFIC EDUCATION: 1. Anemia 2. Medications 3. Appointments HOSPITAL COURSE: This is a 71-year-old female who was seen in our office on 12/07 and labs were drawn. She was seen in our office and the labs came back on 12/08 with hemoglobin of 6.6 and potassium 3.3. She was instructed to go to the emergency room. Upon being seen in the emergency room it was found her hemoglobin was retested and was 6.7 along with potassium again at 3.3. She was transfused two units of packed red blood cells. The post H & H was 8.7 and 26.1. She is currently on 20 mEq of potassium t.i.d. The patient is a long-term smoker with severe COPD. She was supposed to have a repeat colonoscopy in 2014 for which she did not go for her appointment. She does have chronic anemia, iron deficiency anemia. Further evaluation found this to be true. She will be discharged home on iron. The stool for occult blood is still pending at discharge. After the transfusion of two units, the patient stated she felt remarkably better. Today, on day of discharge, on 12/10 with no additional blood , her hemoglobin is 9.2 after starting the iron and the transfusion. We will repeat her CBC on Wednesday. She has an appointment with Dr. Abdi on 12/17 at 2 p.m. Today, on the day of discharge, she states she is feeling much better and she would like to go home. Her labs have significantly improved again. Hemoglobin 9.2, hematocrit 28, platelets 157, white count 5.4, potassium 3.7 today which is an improvement. She will be discharged home on p.o. potassium, sodium 143, BUN 13, creatinine 0.87. Vital signs: heart rate 93, respirations 13, BP 134/75, pulse ox 98%. She has been eating 75 to 100% of her meals. We will discharge her home on 20 mEq p.o. t.i.d. of potassium chloride along with Ferrous Sulfate [address]o. b[address]i.d. Her CT scan upon admission revealed a stable 4 mm pulmonary nodule which she has had and is not new. We will also discharge her home on Carafate 1 gm t.i.d. and Protonix 40 mg daily. The patient was advised to quit smoking. She can resume activity as tolerated. We did decrease her Hydralazine to 50 mg b.i.d. She is to stop Plavix until she is seen by Dr. Abdi. She is to continue Aspirin 81 mg p.o. daily. She will have a CBC on Wednesday and then followup with us. The patient is discharged in stable condition with significant improvement in labs from admission. TIME SPENT: More than 60 minutes. MTDD
== END 2016-12-10 11:13 | disposition home or self-care (01) | DRG 812 ==
LOC: ED 10:44 → MEDSURG A 12:56
PROVIDERS: ADMIT Internal Medicine; ATTEND Internal Medicine
PROC: 30233N1 Transfusion of Nonautologous Red Blood Cells into Peripheral Vein, Percutaneous Approach (ICD-10-PCS; principal; 2016-12-08)
PROC: 30233N1 Transfusion of Nonautologous Red Blood Cells into Peripheral Vein, Percutaneous Approach (ICD-10-PCS; 2016-12-08)
DX: D50.0 Iron deficiency anemia secondary to blood loss (chronic) (principal); K92.2 Gastrointestinal hemorrhage, unspecified; R53.1 Weakness; E87.6 Hypokalemia; J44.9 Chronic obstructive pulmonary disease, unspecified; I51.7 Cardiomegaly; R91.1 Solitary pulmonary nodule; I10 Essential (primary) hypertension; I77.89 Other specified disorders of arteries and arterioles; I70.1 Atherosclerosis of renal artery; E78.5 Hyperlipidemia, unspecified; G62.9 Polyneuropathy, unspecified; F41.8 Other specified anxiety disorders; F17.200 Nicotine dependence, unspecified, uncomplicated; Z86.79 Personal history of other diseases of the circulatory system; Z99.81 Dependence on supplemental oxygen; Z79.02 Long term (current) use of antithrombotics/antiplatelets; Z79.899 Other long term (current) drug therapy
CPT/HCPCS: 36415; 36430; 80053; 82550; 82607; 82728; 82746; 83540; 83550; 84466; 84484; 85025; 85045; 85610; 85730; 86850; 86900; 86922; 93005; 93010; 94640; 99223; 99232; 99239; 99284

== ENCOUNTER 2016-12-14 10:09 | Outpatient (CLI) ==
[2016-12-14 10:22] LABS: BASOPHILS % (AUTO) 0.6 % (0.0-3.0); EOSINOPHILS % (AUTO) 0.6 % (0.0-7.0); HEMATOCRIT 33.2 % (37.0-47.0); IMMATURE GRANULOCYTE % (AUTO) 0.2 % (0.0-5.0); LYMPHOCYTES # (AUTO) 2.2 K/uL (0.60-3.4); MEAN CORPUSCULAR HEMOGLOBIN 27.5 pg (27.0-31.0); MEAN CORPUSCULAR HGB CONC 33.1 (31.8-35.4); MONOCYTES # (AUTO) 0.7 K/uL (0.4-2.0); MONOCYTES % (AUTO) 13.3 (0-10); NEUTROPHILS # (AUTO) 2.3 K/ul (2.0-6.9); NEUTROPHILS % (AUTO) 43.3; PLATELET COUNT 192 10^3/uL (140-440); WHITE BLOOD COUNT 5.19 K/ul (4.6-10.2)
[2016-12-14 10:38] LABS: ALBUMIN 3.3 g/dL (3.4-5.0); ALBUMIN/GLOBULIN RATIO 1.22; ANION GAP 12.4; BILIRUBIN,TOTAL 0.41 mg/dL (0.00-1.20); BUN/CREATININE RATIO 9.87; CALCIUM 9.9 mg/dL (8.2-10.2); CREATININE 0.81 mg/dL (0.60-1.30); POTASSIUM 3.4 mmol/L (3.5-5.10)
== END 2016-12-14 10:10 | disposition home or self-care (01) ==
LOC: LAB 10:09
PROVIDERS: ATTEND Internal Medicine
DX: D64.9 Anemia, unspecified (principal)
CPT/HCPCS: 36415; 80053; 85025

== ENCOUNTER 2016-12-18 08:38 | Outpatient (RCR) ==
[~2016-12-18 08:38] MED LIST: TORADOL ONE
[2017-01-05 14:15] VITALS: BP 166/88
== END 2017-01-16 ==
LOC: PUL.REHAB 08:38
PROVIDERS: ATTEND Internal Medicine
DX: J44.9 Chronic obstructive pulmonary disease, unspecified (principal)

== ENCOUNTER 2016-12-25 14:30 | Emergency (ER) ==
[2016-12-25 14:41] VITALS: BP 105/57; TEMP 98.5; BMI 19.0
--- NOTE | 2016-12-25 15:05 | ED.PDOC ---
General ED Provider: Dr. MARY JULES Chief Complaint: Syncope Stated Complaint: Stood up after eating lunch, got lightheaded and fainted. Witnessed by son who caught her and layed her down on the floor. She woke up after a few minutes. Neither she nor her son reported anything else. Similar episode a few months ago. Brought to ED and evaluated, but no definite diagnosis made. Pt observed her BP is unusally low here. She has HTN and is on 4 meds for it. Time Seen by Physician: 15:00 Mode of Arrival: Ambulance Information Source: Patient Exam Limitations: No limitations Primary Care Provider: SIDDHARTHA BRITO Nursing and Triage Documentation Reviewed and Agree: Yes Cardiovascular Complaint Exam - Palpitations Complaint/Exam Onset/Duration: 1 .5 hrs ago Symptoms Are: Resolved (only sx was syncope not abnormal heart rate that she was aware of) Timing: Constant Initial Severity: Severe Current Severity: None Aggravating: Reports: None Alleviating: Reports: Rest Associated Signs and Symptoms: Reports: Lightheadedness, Syncope Related History: Similar episode (similar sx several months ago. seen in ED without definite dx) Related Surgical History: Reports: None Cardiac Risk Factors: Reports: Hypertension, Smoking Pulmonary Embolism Risk Factors: Reports: None, Smoking Thyroid Exam: Normal Differential Diagnoses: CAD (cardiac arrhythymia, hypotension) Quality Indicators for AMI: EKG in 10min. Review of Systems - Review Of Systems Constitutional: Reports: Other (very tired) Eyes: Reports: No symptoms Ears, Nose, Mouth, Throat: Reports: No symptoms Respiratory: Reports: No symptoms Cardiac: Reports: No symptoms GI: Reports: No symptoms : Reports: No symptoms Musculoskeletal: Reports: No symptoms Skin: Reports: No symptoms Neurological: Reports: No symptoms Endocrine: Reports: No symptoms Hematologic/Lymphatic: Reports: No symptoms All Other Systems: Reviewed and Negative Past Medical History - Past Medical History Previously Healthy: Yes Endocrine: Reports: Dyslipidemia Cardiovascular: Reports: CAD, Hypertension, Other (PAD) Respiratory: Reports: COPD Hematological: Reports: None Gastrointestinal: Reports: None Genitourinary: Reports: None Neuro/Psych: Reports: Anxiety, Depression Musculoskeletal: Reports: Arthritis, Back Pain, Joint Pain Cancer: Reports: None Last Menstrual Period: hysterectomy - Surgical History General Surgical History: Reports: Hysterectomy, Stent Placement - Family History Family History: Reports: Unknown - Social History Smoking Status: Current every day smoker, Heavy tobacco smoker Hx Substance Use: No Alcohol Screening: Occasionally Physical Exam - Physical Exam Appearance: Well-appearing, No pain distress, Well-nourished Eyes: ARIEL, EOMI, Conjunctiva clear ENT: Ears normal, Nose normal, Oropharynx normal Neck: Supple Respiratory: Airway patent, Breath sounds clear, Breath sounds equal, Respirations nonlabored Cardiovascular: RRR, Pulses normal, No rub, No murmur GI/: Soft, Nontender, No masses, Bowel sounds normal, No Organomegaly Musculoskeletal: Normal strength, ROM intact, No edema, No calf tenderness Skin: Warm, Dry, Normal color Neurological: Sensation intact, Motor intact, Reflexes intact, Cranial nerves intact, Alert, Oriented Psychiatric: Affect appropriate, Mood appropriate Interpretation - EKG Interpretation Time of EKG #1: 15:14 Rate: Normal Rhythm: Sinus Ectopy: None [place]: NL ST Segment: Other (nonspecific T wave abnormality) Interpretation: Prolonged QT, abnormal EKG Critical Care Note - Critical Care Note Total Time (mins): 0 Course - Course Hematology/Chemistry: 12/25/16 15:15 12/25/16 15:15 Orders, Labs, Meds: Lab Review 12/25/16 12/25/16 15:15 18:02 WBC 6.13 RBC 3.61 L Hgb 10.0 L Hct 30.2 L MCV 83.7 MCH 27.7 MCHC 33.1 RDW Coeff of Tr 18.0 H Plt Count 151 Immature Gran % (Auto) 0.3 Neut % (Auto) 68.9 Lymph % (Auto) 19.7 [place] % (Auto) 9.6 Eos % (Auto) 1.0 Baso % (Auto) 0.5 Immature Gran # (Auto) 0.0 Neut # 4.2 Lymph # 1.2 [place] # 0.6 Eos # 0.1 Baso # 0.0 Sodium 142 Potassium 3.6 Chloride 98 Carbon Dioxide 32 H Anion Gap 15.6 BUN 12 Creatinine 0.90 Estimated GFR (MDRD) 62.00 BUN/Creatinine Ratio 13.33 Glucose 140 H Calcium 10.0 Total Bilirubin 0.35 AST 16 ALT 15 Alkaline Phosphatase 61 Total Creatine Kinase 36 Troponin I 0.0380 Total Protein 5.6 L Albumin 3.1 L Globulin 2.5 Albumin/Globulin Ratio 1.24 Urine Color Yellow Urine Clarity Clear Urine pH 7.5 Ur Specific [place] 1.015 Urine Protein Negative Urine Glucose (UA) Negative Urine Ketones Negative Urine Blood Negative Urine Nitrite Negative Urine Bilirubin Negative Urine Urobilinogen 0.2 Ur Leukocyte Esterase 1+ Urine Microscopic WBC 0-2 Ur Squamous Epith Cells 0-2 Orders Category Date Time Status EKG-(ED ONLY) Stat CARDIO 12/25/16 15:07 Completed CBC W/ AUTO DIFF Stat LAB 12/25/16 15:15 Completed COMPREHENSIVE METABOLIC PANEL Stat LAB 12/25/16 15:15 Completed CREATINE KINASE Stat LAB 12/25/16 15:15 Completed TROPONIN I Stat LAB 12/25/16 15:15 Completed URINALYSIS C & S IF INDICATED Stat LAB 12/25/16 18:02 Completed Vital Signs: Temp Pulse Resp BP Pulse Ox 12/25/16 14:30 98.5 F 74 20 105/57 L 98 AMI Core - Clinical Trial Participant Clinical Trial Participant: No - Palliative Care Palliative Care: none - Aspirin Reason for not ordering Aspirin: not indicated - Statins Reason for not ordering Statins: not indicated - Fibrinolytic Reason for not ordering Fibrinolytic: not indicated - EKG Initial Interpretation EKG Initial Interpretation Date: 12/25/16 (unremarkable) ARCELIA Risk Score Age >/= 65: Yes Known CAD (Stenosis >/= 50%): Yes Severe Angina (>/= 2 episodes in 24 hours): No EKG ST Changes >/= 0.5mm: No Postive Cardiac Marker: No ARCELIA Total Score: 2 ARCELIA Risk Score: Risk Score Odds of by 30D 0 0.1 (0.1-0.2) 1 0.3 (0.2-0.3) 2 0.4 (0.3-0.5) 3 0.7 (0.6-0.9) 4 1.2 (1.0-1.5) 5 2.2 (1.9-2.6) 6 3.0 (2.5-3.6) 7 4.8 (3.8-6.1) Departure - Departure Time of Disposition: 18:42 Disposition: HOME SELF-CARE Discharge Problem: Syncope Instructions: Syncope (ED) Condition: Good Pt referred to PMD for follow-up: Yes (see PCP next week for follow up after returning holter monitor) Allergies/Adverse Reactions: Allergies No Known Allergies Allergy (Verified 12/25/16 14:42) Home Medications: Ambulatory Orders Cilostazol [Pletal] 100 mg PO BIDAC 12/09/12 Cyanocobalamin (Vitamin B-12) [B-12] 500 mcg PO DAILY 12/09/12 Potassium Chloride [Micro-K Cap] 5 meq PO DAILYWM 12/09/12 Roflumilast [Daliresp] 500 mcg PO DAILY 03/29/15 Ferrous Gluconate 324 mg PO BID 06/17/15 Duloxetine HCl [Cymbalta] 60 mg PO DAILY 06/18/15 Rosuvastatin Calcium [Crestor] 20 mg PO BEDTIME 12/27/15 Arformoterol Tartrate [Brovana] 1 vial IH Q12H PRN 05/27/16 Aspirin 81 mg PO DAILY 05/27/16 Carvedilol [Coreg] 25 mg PO BID 05/27/16 Cholecalciferol (Vitamin D3) [Vitamin D3] 400 unit PO DAILY 05/27/16 Escitalopram Oxalate [Lexapro] 10 mg PO DAILY 05/27/16 Triamterene/Hydrochlorothiazid [Dyazide] 1 cap PO DAILY 05/27/16 Pregabalin [Lyrica] 50 mg PO BID #60 capsule 06/01/16 Tiotropium Br/Olodaterol HCl [Stiolto Respimat Inhal [place]] 2.5 mcg IH DAILY 07/03 Alprazolam [Xanax] 0.25 mg PO BID PRN #10 tablet 11/09/16 Clonidine HCl 0.1 mg PO BID PRN #30 tablet 11/09/16 Losartan Potassium [Cozaar] 50 mg PO DAILY #30 tablet 11/09/16 Hydralazine HCl 50 mg PO BID #01 tablet 12/10/16 Pantoprazole Sodium [Protonix] 40 mg PO QDAC #30 tablet. 12/10/16 Sucralfate [Carafate] 1 gm PO AC #30 tablet 12/10/16 Disposition Discussed With: Patient, Family
[2016-12-25 15:20] LABS: BASOPHILS % (AUTO) 0.5 % (0.0-3.0); EOSINOPHILS # (AUTO) 0.1 K/ul (0.0-0.7); HEMATOCRIT 30.2 % (37.0-47.0); IMMATURE GRANULOCYTE % (AUTO) 0.3 % (0.0-5.0); LYMPHOCYTES # (AUTO) 1.2 K/uL (0.60-3.4); LYMPHOCYTES % (AUTO) 19.7 (10.0-50.0); MEAN CORPUSCULAR HEMOGLOBIN 27.7 pg (27.0-31.0); MEAN CORPUSCULAR HGB CONC 33.1 (31.8-35.4); MEAN CORPUSCULAR VOLUME 83.7 fl (81.0-99.0); MONOCYTES # (AUTO) 0.6 K/uL (0.4-2.0); MONOCYTES % (AUTO) 9.6 (0-10); NEUTROPHILS # (AUTO) 4.2 K/ul (2.0-6.9); NEUTROPHILS % (AUTO) 68.9; PLATELET COUNT 151 10^3/uL (140-440); RED BLOOD COUNT 3.61 10^6/ul (4.20-5.40); WHITE BLOOD COUNT 6.13 K/ul (4.6-10.2)
[2016-12-25 15:49] LABS: ALBUMIN 3.1 g/dL (3.4-5.0); ALBUMIN/GLOBULIN RATIO 1.24; BILIRUBIN,TOTAL 0.35 mg/dL (0.00-1.20); BUN/CREATININE RATIO 13.33; CREATININE 0.9 mg/dL (0.60-1.30); POTASSIUM 3.6 mmol/L (3.5-5.10); TOTAL PROTEIN 5.6 g/dL (5.8-8.1); TROPONIN I 0.038 ng/ml (0.0000-0.4000)
[2016-12-25 16:39] LABS: ANION GAP 15.6
[2016-12-25 18:09] LABS: BILIRUBIN,URINE Negative (NEGATIVE); KETONES,URINE Negative (NEGATIVE); LEUKOCYTE ESTERASE ,URINE 1+ (NEGATIVE); NITRITE,URINE Negative (NEGATIVE); PH,URINE 7.5 (5-9); PROTEIN,URINE Negative (NEGATIVE); URINE, BLOOD Negative (NEGATIVE)
[2016-12-25 18:13] LABS: ADD URINE MICROSCOPIC YES
--- NOTE | 2016-12-30 08:39 | HOLTER ---
PATIENT INFORMATION AND COMMENTS Attending Physician: SIDDHARTHA BRITO Indications: SYNCOPE __ Patient Medications: DYAZIDE, TIOTROPIUM, __ Pre-procedure Summary: Protocol: Standard Heart Rate Started: 12/25/161911 Minimum: 65 BPM Weight: 116 LBS Ended: 12/26/161911 Maximum: 132 BPM Height: 65" Duration: 24 HOURS Average: 93 BPM _ INTERPRETATIONS/OBSERVATIONS: 1. BASIC RHYTHM: SINUS, RATE 65 BPM TO 130 BPM, AVERAGE 95 BPM 2. RARE PVC'S AND PAC'S 3. NO ST-T WAVE CHANGES FROM BASELINE 4. ACTIVITY LOG NOT MAINTAINED MTDD
== END 2016-12-25 19:22 | disposition home or self-care (01) ==
LOC: ED 14:30
DX: R55 Syncope and collapse (principal); I10 Essential (primary) hypertension; R53.1 Weakness; R53.83 Other fatigue; E78.5 Hyperlipidemia, unspecified; I25.10 Atherosclerotic heart disease of native coronary artery without angina pectoris; J44.9 Chronic obstructive pulmonary disease, unspecified; I73.9 Peripheral vascular disease, unspecified; F17.210 Nicotine dependence, cigarettes, uncomplicated; Z79.899 Other long term (current) drug therapy; Z99.81 Dependence on supplemental oxygen
CPT/HCPCS: 36415; 80053; 81001; 82550; 84484; 85025; 93005; 93010; 99284

== ENCOUNTER 2017-02-17 09:02 | Outpatient (RCR) ==
[2017-03-16 13:36] VITALS: BP 138/62
== END 2017-03-18 ==
LOC: PUL.REHAB 09:02
PROVIDERS: ATTEND Internal Medicine
DX: J44.9 Chronic obstructive pulmonary disease, unspecified (principal)

== ENCOUNTER 2017-03-19 07:16 | Outpatient (RCR) | END 2017-04-18 | LOC: PUL.REHAB 07:16 | PROVIDERS: ATTEND Internal Medicine | DX: J44.9 Chronic obstructive pulmonary disease, unspecified (principal) ==

== ENCOUNTER 2017-03-20 18:42 | Inpatient (IN) ==
[2017-03-20] MEDS ORDERED: DUONEB NEB STA (18:50)
[2017-03-20 19:20] LABS: BASOPHILS % (AUTO) 0.2 % (0.0-3.0); EOSINOPHILS # (AUTO) 0.1 K/ul (0.0-0.7); EOSINOPHILS % (AUTO) 0.8 % (0.0-7.0); HEMATOCRIT 29.2 % (37.0-47.0); HEMOGLOBIN 9.6 g/dl (12.0-16.0); IMMATURE GRANULOCYTE % (AUTO) 0.4 % (0.0-5.0); LYMPHOCYTES # (AUTO) 1.3 K/uL (0.60-3.4); LYMPHOCYTES % (AUTO) 11.8 (10.0-50.0); MEAN CORPUSCULAR HEMOGLOBIN 28.3 pg (27.0-31.0); MEAN CORPUSCULAR HGB CONC 32.9 (31.8-35.4); MEAN CORPUSCULAR VOLUME 86.1 fl (81.0-99.0); MONOCYTES % (AUTO) 9.4 (0-10); NEUTROPHILS # (AUTO) 8.2 K/ul (2.0-6.9); NEUTROPHILS % (AUTO) 77.4; PLATELET COUNT 140 10^3/uL (140-440); RED BLOOD COUNT 3.39 10^6/ul (4.20-5.40); WHITE BLOOD COUNT 10.64 K/ul (4.6-10.2)
[2017-03-20] MEDS ORDERED: ROCEPHIN 1 GM in SODIUM CHLORIDE 50 ML IV STA (19:35)
[2017-03-20] MEDS ORDERED: SOLU-MEDROL 125 MG IVP STA (19:35)
[2017-03-20] MEDS ORDERED: ZITHROMAX PO STA (19:35)
[2017-03-20 19:38] LABS: ABG BASE EXCESS 5 (-2.0-2.0); ABG HCO3 22.4 (22.0-26.0); ABG PCO2 12.5 mmHg (35-45); ABG PH 7.862 (7.35-7.45); ABG TCO2 23 (22.0-28.0)
[2017-03-20] MEDS ORDERED: ROCEPHIN ONE (19:46)
[2017-03-20 19:49] LABS: ALBUMIN 3.3 g/dL (3.4-5.0); ALBUMIN/GLOBULIN RATIO 1.1; ANION GAP 12.8; BILIRUBIN,TOTAL 0.44 mg/dL (0.00-1.20); BUN/CREATININE RATIO 12.5; CALCIUM 10.2 mg/dL (8.2-10.2); CREATININE 0.72 mg/dL (0.60-1.30); POTASSIUM 3.8 mmol/L (3.5-5.10); TOTAL PROTEIN 6.3 g/dL (5.8-8.1); TROPONIN I 0.01 ng/ml (0.0000-0.4000)
[2017-03-20 20:05] LABS: ABG BASE EXCESS 10 (-2.0-2.0); ABG HCO3 34.8 (22.0-26.0); ABG PCO2 54.4 mmHg (35-45); ABG PH 7.414 (7.35-7.45); ABG TCO2 36 (22.0-28.0)
[2017-03-20] MEDS ORDERED: XOPENEX 1.25 MG NEB STA (20:23)
--- NOTE | 2017-03-20 20:38 | ED.PDOC ---
General ED Provider: Dr. ANDERSON HARO Chief Complaint: Shortness of Air Stated Complaint: Patient has a history of COPD and is on oxygen 2 liter NC at home. over the past week she has been getting more shot of breath and coughing up clear sputum. Has mild chest pain with cough. Time Seen by Physician: 18:45 Mode of Arrival: Walk-In Information Source: Patient, Family Exam Limitations: No limitations Primary Care Provider: SIDDHARTHA BRITO Nursing and Triage Documentation Reviewed and Agree: Yes Respiratory Complaint Exam - Shortness of Air Complaint/Exam Onset/Duration: 1 week Symptoms Are: Still present Timing: Constant Initial Severity: Moderate Current Severity: Severe Character: Reports: Dyspnea at rest Aggravating: Reports: URI, Smoke exposure, Weather Alleviating: Reports: Bronchodilators, Oxygen Associated Signs and Symptoms: Reports: Cough, Wheezing, Chest pain with cough, Nasal congestion, Rapid breathing, Labored breathing Related History: Reports: Similar episode (with Prior COPD excacerbations ) History of Healthcare-Acquired Pneumonia: No Pulmonary Embolism Risk Factors: Reports: None Cardiac Risk Factors: Reports: None Pseudomonas Risk Factors: Reports: Chronic Lung Disease Tuberculosis Risk Factors: Reports: Corticosteriod use, Smoking Home Oxygen Use: Yes (2 liter ) Recent Echo/LV Function: No Respiratory Distress: Severe Stridor Present: No Tracheal Deviation: No Subcutaneous Emphysema: No Accessory Muscle Use: Yes Retractions: Nasal Flaring, Diaphragmatic Diminished Breath Sounds: Yes Prolonged Expiratory Phase: Yes Unable to Speak Full Sentences: Yes Fatigue: No Leg Swelling: No Enzo's Sign Present: No Grunting Respirations: No Kussmaul Respirations: No Differential Diagnoses: COPD Exacerbation, Pneumonia Review of Systems - Review Of Systems Constitutional: Reports: Loss of appetite Eyes: Reports: No symptoms Ears, Nose, Mouth, Throat: Reports: No symptoms Respiratory: Reports: Cough, Short of air, Wheezing Cardiac: Reports: No symptoms GI: Reports: No symptoms : Reports: No symptoms Musculoskeletal: Reports: No symptoms Skin: Reports: No symptoms Neurological: Reports: Anxiety Endocrine: Reports: No symptoms Hematologic/Lymphatic: Reports: No symptoms All Other Systems: Reviewed and Negative Past Medical History - Past Medical History Previously Healthy: Yes Endocrine: Reports: Dyslipidemia Cardiovascular: Reports: CAD, Hypertension, Other (PAD) Respiratory: Reports: COPD Hematological: Reports: None Gastrointestinal: Reports: None Genitourinary: Reports: None Neuro/Psych: Reports: Anxiety, Depression Musculoskeletal: Reports: Arthritis, Back Pain, Joint Pain Cancer: Reports: None Last Menstrual Period: na - Surgical History General Surgical History: Reports: Hysterectomy, Stent Placement - Family History Family History: Reports: Unknown - Social History Smoking Status: Current every day smoker, Heavy tobacco smoker Hx Substance Use: No Alcohol Screening: Occasionally - Immunizations Tetanus Shot up to Date: (unknown) Physical Exam - Physical Exam Appearance: Ill-appearing Ill-appearing: Severe Pain Distress: Severe Eyes: ARIEL, EOMI, Conjunctiva clear Neck: Supple Respiratory: Breath sounds diminished, Rhonchi, Wheezes, Retractions Cardiovascular: RRR GI/: Soft Musculoskeletal: Normal strength, ROM intact, No edema, No calf tenderness Neurological: Sensation intact, Motor intact, Reflexes intact, Cranial nerves intact, Alert, Oriented Psychiatric: Anxious Re-Evaluation - Re-Evaluation Time of Re-Evaluation: 20:50 Status: Improved Lungs: Other (air movement improved.) Critical Care Note - Critical Care Note Total Time (mins): 45 Course - Course Hematology/Chemistry: 03/21/17 04:30 03/21/17 04:30 Orders, Labs, Meds: Lab Review 03/20/17 03/20/17 03/20/17 18:50 19:12 19:12 WBC 10.64 H RBC 3.39 L Hgb 9.6 L Hct 29.2 L MCV 86.1 MCH 28.3 MCHC 32.9 RDW Coeff of Tr 16.3 H Plt Count 140 Immature Gran % (Auto) 0.4 Neut % (Auto) 77.4 Lymph % (Auto) 11.8 [place] % (Auto) 9.4 Eos % (Auto) 0.8 Baso % (Auto) 0.2 Immature Gran # (Auto) 0.0 Neut # 8.2 H Lymph # 1.3 [place] # 1.0 Eos # 0.1 Baso # 0.0 Puncture Site Lb O2 Saturation 100.0 ABG pH 7.862 H* ABG pCO2 12.5 L ABG pO2 151.0 H ABG HCO3 22.4 ABG Total CO2 23 ABG Base Excess 5 H Miki Test + O2 Delivery Device Bnc Oxygen Liter Flow 2.00 FiO2 % 28.0 Sodium 137 Potassium 3.8 Chloride 96 L Carbon Dioxide 32 H Anion Gap 12.8 BUN 9 Creatinine 0.72 Estimated GFR (MDRD) 80.00 BUN/Creatinine Ratio 12.50 Glucose 94 Calcium 10.2 Total Bilirubin 0.44 AST 13 L ALT 9 L Alkaline Phosphatase 61 Total Creatine Kinase 34 Troponin I 0.0100 Total Protein 6.3 Albumin 3.3 L Globulin 3.0 Albumin/Globulin Ratio 1.10 03/20/17 19:53 WBC RBC Hgb Hct MCV MCH MCHC RDW Coeff of Tr Plt Count Immature Gran % (Auto) Neut % (Auto) Lymph % (Auto) [place] % (Auto) Eos % (Auto) Baso % (Auto) Immature Gran # (Auto) Neut # Lymph # [place] # Eos # Baso # Puncture Site Lb O2 Saturation 93.0 L ABG pH 7.414 ABG pCO2 54.4 H ABG pO2 70.0 L ABG HCO3 34.8 H ABG Total CO2 36 H ABG Base Excess 10 H Miki Test + O2 Delivery Device Bnc Oxygen Liter Flow 2.00 FiO2 % 28.0 Sodium Potassium Chloride Carbon Dioxide Anion Gap BUN Creatinine Estimated GFR (MDRD) BUN/Creatinine Ratio Glucose Calcium Total Bilirubin AST ALT Alkaline Phosphatase Total Creatine Kinase Troponin I Total Protein Albumin Globulin Albumin/Globulin Ratio Orders Category Date Time Status ABG DRAW REQUEST Stat CARDIO 03/20/17 18:51 Completed ABG DRAW REQUEST Stat CARDIO 03/20/17 19:53 Completed EKG-(ED ONLY) Stat CARDIO 03/20/17 18:51 Completed NEBULIZER TREATMENT Stat CARDIO 03/20/17 18:51 Completed NEBULIZER TREATMENT Stat CARDIO 03/20/17 20:24 Completed ED APPLY O2 .ONCE EMERGENCY 03/20/17 18:50 Active ED IRON HANDLER APPLIED .ONCE EMERGENCY 03/20/17 18:50 Active ED IV/MEDIPORT/POWERPORT .ONCE EMERGENCY 03/20/17 18:50 Active ABG Stat LAB 03/20/17 18:50 Completed ABG Stat LAB 03/20/17 19:53 Completed BLOOD CULTURE (ED ONLY) Stat LAB 03/20/17 19:12 Received CBC W/ AUTO DIFF Stat LAB 03/20/17 19:12 Completed COMPREHENSIVE METABOLIC PANEL Stat LAB 03/20/17 19:12 Completed CREATINE KINASE Stat LAB 03/20/17 19:12 Completed SPUTUM CULTURE Stat LAB 03/20/17 19:30 Results TROPONIN I Stat LAB 03/20/17 19:12 Completed 0.9 % Sodium Chloride [Saline Flush] MEDS 03/20/17 18:50 Active 1 syr IVF PRN PRN Azithromycin [Zithromax] MEDS 03/20/17 19:35 Discontinued 500 mg PO ONCE STA Ceftriaxone Sodium [Rocephin] MEDS 03/20/17 19:46 Discontinued 1 gm .ROUTE .STK-MED ONE Ceftriaxone Sodium [Rocephin] 1 gm MEDS 03/20/17 19:35 Discontinued 0.9 % Sodium Chloride [Sodium Chloride] 50 ml IV ONCE Ipratropium/Albuterol Neb [Duoneb] MEDS 03/20/17 18:50 Discontinued 1 vial NEB ONCE STA Levalbuterol HCl [Xopenex 1.25 mg] MEDS 03/20/17 20:23 Discontinued 1 vial NEB ONCE STA Methylprednisolone Sod Succ/Pf [Solu-Medrol 125 mg] MEDS 03/20/17 19:35 Discontinued 125 mg IVP ONCE STA CHEST, 1V AP ONLY Stat RADS 03/20/17 18:51 Completed Medications Generic Name Dose Route Start Last Admin Trade Name Freq PRN Reason Stop Dose Admin Acetaminophen 650 mg 03/20/17 20:46 Tylenol PO Q4H PRN Fever > 102 Acetaminophen/Hydrocodone Bitart 1 tab 03/21/17 07:28 [place] 10-325 PO TID PRN PAIN Albuterol Sulfate 1 vial 03/20/17 21:08 Albuterol 0.083% Neb NEB RTQ2H PRN Wheezing Albuterol/Ipratropium 1 vial 03/20/17 22:00 03/21/17 05:25 Duoneb NEB 1 vial RTQ4H AYAD Administration Alprazolam 0.25 mg 03/20/17 21:04 03/20/17 23:12 Xanax PO 0.25 mg BID PRN Administration anxiety Aspirin 81 mg 03/21/17 08:00 Aspirin Chewable PO DAILYWM AYAD Azithromycin 250 mg 03/21/17 09:00 Zithromax PO 03/24/17 09:01 DAILY AYAD Carvedilol 25 mg 03/21/17 08:00 Coreg PO BIDWM AYAD Cholecalciferol 400 unit 03/21/17 09:00 Vitamin D PO DAILY AYAD Cilostazol 100 mg 03/21/17 06:30 03/21/17 06:31 Pletal PO 100 mg BIDAC AYAD Administration Clonidine 0.1 mg 03/20/17 21:04 Catapres PO BID PRN Hypertension Duloxetine HCl 60 mg 03/21/17 09:00 Cymbalta PO DAILY [facility] Enoxaparin Sodium 40 mg 03/21/17 09:00 Lovenox SUBCUT DAILY [facility] Escitalopram Oxalate 10 mg 03/21/17 09:00 Lexapro PO DAILY [facility] Ferrous Sulfate 324 mg 03/21/17 09:00 Ferrous Sulfate PO BID [facility] Formoterol Fumarate 20 mcg 03/21/17 07:30 Perforomist NEB Q12H PRN SHORTNESS OF BREATH Hydralazine HCl 50 mg 03/21/17 09:00 Apresoline PO BID [facility] Sodium Chloride 1,000 mls @ 75 mls/hr 03/20/17 21:00 03/20/17 23:13 Sodium Chloride IV 75 mls/hr .[id number] AYAD Administration Losartan Potassium 50 mg 03/21/17 09:00 Cozaar PO DAILY [facility] Methylprednisolone Sodium Succinate 125 mg 03/20/17 21:00 03/21/17 06:31 Solu-Medrol 125 Mg IVP 125 mg Q8HR AYAD Administration Non-Formulary Medication 500 mcg 03/21/17 09:00 Cyanocobalamin (Vitamin B-12) [B-12] PO DAILY [facility] Non-Formulary Medication 2.5 mcg 03/21/17 09:00 Tiotropium Br/Olodaterol Hcl [Stiolto Respimat Inhal [place]] IH DAILY [facility] Ondansetron HCl 4 mg 03/20/17 20:46 Zofran 4 Mg/2 Ml IVP Q6H PRN Nausea / Vomiting Potassium Chloride 8 meq 03/21/17 08:00 Klor-Con 8 Meq PO DAILYWM [facility] Pregabalin 50 mg 03/21/17 09:00 Lyrica PO BID [facility] Roflumilast 500 mcg 03/21/17 09:00 Daliresp PO DAILY [facility] Rosuvastatin Calcium 20 mg 03/21/17 21:00 Crestor PO BEDTIME AYAD Sodium Chloride 1 syr 03/20/17 18:50 03/20/17 20:02 Saline Flush IVF 1 syr PRN PRN Administration To flush IV Triamterene/HCTZ 1 cap 03/21/17 09:00 Dyazide PO DAILY [facility] Discontinued Medications Generic Name Dose Route Start Last Admin Trade Name Freq PRN Reason Stop Dose Admin Albuterol/Ipratropium 1 vial 03/20/17 18:50 03/20/17 19:30 Duoneb NEB 03/20/17 18:51 1 vial ONCE STA Administration Albuterol/Ipratropium 1 vial 03/20/17 20:46 Duoneb NEB RTQ4H PRN Wheezing Azithromycin 500 mg 03/20/17 19:35 03/20/17 20:02 Zithromax PO 03/20/17 19:36 500 mg ONCE STA Administration Carvedilol 25 mg 03/20/17 22:50 03/20/17 23:13 Coreg PO 03/20/17 22:51 25 mg ONCE STA Administration Cilostazol 100 mg 03/20/17 22:45 03/20/17 23:13 Pletal PO 03/20/17 22:46 100 mg ONCE STA Administration Ferrous Sulfate 324 mg 03/20/17 22:46 03/20/17 23:13 Ferrous Sulfate PO 03/20/17 22:47 324 mg ONCE STA Administration Hydralazine HCl 50 mg 03/20/17 22:47 03/20/17 23:13 Apresoline PO 03/20/17 22:48 50 mg ONCE STA Administration Ceftriaxone Sodium 1 gm/ 50 mls @ 75 mls/hr 03/20/17 19:35 03/20/17 20:03 Sodium Chloride IV 03/20/17 20:14 75 mls/hr ONCE STA Administration Levalbuterol HCl 1 vial 03/20/17 20:23 03/20/17 20:34 Xopenex 1.25 Mg [facility] 03/20/17 20:24 1 vial ONCE STA Administration Methylprednisolone Sodium Succinate 125 mg 03/20/17 19:35 03/20/17 19:51 Solu-Medrol 125 Mg IVP 03/20/17 19:36 125 mg ONCE STA Administration Non-Formulary Medication 25 mg 03/21/17 09:00 Carvedilol [Coreg] PO BID AYAD Rosuvastatin Calcium 20 mg 03/20/17 22:46 03/20/17 23:12 Crestor PO 03/20/17 22:47 20 mg ONCE STA Administration Sucralfate 1 gm 03/21/17 06:30 Carafate PO AC AYAD Vital Signs: Temp Pulse Resp BP Pulse Ox 03/20/17 18:43 97.6 F 99 H 18 211/80 H 100 Departure - Departure Time of Disposition: 21:00 Disposition: ADMITTED INPATIENT Discharge Problem: COPD exacerbation Condition: Fair Pt referred to PMD for follow-up: No Allergies/Adverse Reactions: Allergies No Known Allergies Allergy (Verified 12/25/16 14:42) Home Medications: Ambulatory Orders Cilostazol [Pletal] 100 mg PO BIDAC 12/09/12 Cyanocobalamin (Vitamin B-12) [B-12] 500 mcg PO DAILY 12/09/12 Potassium Chloride [Micro-K Cap] 5 meq PO DAILYWM 12/09/12 Roflumilast [Daliresp] 500 mcg PO DAILY 03/29/15 Ferrous Gluconate 324 mg PO BID 06/17/15 Duloxetine HCl [Cymbalta] 60 mg PO DAILY 06/18/15 Rosuvastatin Calcium [Crestor] 20 mg PO BEDTIME 12/27/15 Arformoterol Tartrate [Brovana] 1 vial IH Q12H PRN 05/27/16 Aspirin 81 mg PO DAILY 05/27/16 Carvedilol [Coreg] 25 mg PO BIDWM 05/27/16 Cholecalciferol (Vitamin D3) [Vitamin D3] 400 unit PO DAILY 05/27/16 Escitalopram Oxalate [Lexapro] 10 mg PO DAILY 05/27/16 Triamterene/Hydrochlorothiazid [Dyazide] 1 cap PO DAILY 05/27/16 Pregabalin [Lyrica] 50 mg PO BID #60 capsule 06/01/16 Tiotropium Br/Olodaterol HCl [Stiolto Respimat Inhal [place]] 2.5 mcg IH DAILY 07/03 Alprazolam [Xanax] 0.25 mg PO BID PRN #10 tablet 11/09/16 Clonidine HCl 0.1 mg PO BID PRN #30 tablet 11/09/16 Losartan Potassium [Cozaar] 50 mg PO DAILY #30 tablet 11/09/16 Hydralazine HCl 50 mg PO BID #01 tablet 12/10/16 Hydrocodone Bit/Acetaminophen [Lortab 10-500] 1 tab PO TID PRN 03/20/17
[2017-03-20] MEDS ORDERED: DUONEB NEB PRN (20:46)
[2017-03-20] MEDS ORDERED: ZOFRAN 4 MG/2 ML IVP PRN (20:46)
[2017-03-20] MEDS ORDERED: TYLENOL PO PRN (20:46)
[2017-03-20] MEDS ORDERED: ARFORMOTEROL TARTRATE IH PRN (21:04)
[2017-03-20] MEDS ORDERED: NON-FORMULARY MEDICATION (Hydrocodone Bit/Acetaminophen 1 TAB) PO PRN (21:04)
[2017-03-20] MEDS ORDERED: ALBUTEROL 0.083% NEB NEB PRN (21:08)
[2017-03-20] MEDS ORDERED: PLETAL PO STA (22:45)
[2017-03-20] MEDS ORDERED: CRESTOR PO STA (22:46)
[2017-03-20] MEDS ORDERED: FERROUS SULFATE PO STA (22:46)
[2017-03-20] MEDS ORDERED: APRESOLINE PO STA (22:47)
[2017-03-20] MEDS ORDERED: COREG PO STA (22:50)
[2017-03-20] MEDS: XANAX PO PRN (23:12)
[2017-03-20] MEDS: SODIUM CHLORIDE 1,000 ML IV SCH (23:13)
[2017-03-20] MEDS: SOLU-MEDROL 125 MG IVP SCH (23:14)
[2017-03-20] MEDS: DUONEB NEB SCH (23:50)
[2017-03-21] MEDS: DUONEB NEB SCH ×6 (01:30→22:28)
[2017-03-21 05:18] LABS: BASOPHILS % (AUTO) 0.1 % (0.0-3.0); HEMATOCRIT 27.3 % (37.0-47.0); IMMATURE GRANULOCYTE % (AUTO) 0.8 % (0.0-5.0); LYMPHOCYTES # (AUTO) 0.8 K/uL (0.60-3.4); LYMPHOCYTES % (AUTO) 9.7 (10.0-50.0); MONOCYTES # (AUTO) 0.1 K/uL (0.4-2.0); MONOCYTES % (AUTO) 1.4 (0-10); NEUTROPHILS # (AUTO) 7.5 K/ul (2.0-6.9); PLATELET COUNT 121 10^3/uL (140-440); RED BLOOD COUNT 3.21 10^6/ul (4.20-5.40); WHITE BLOOD COUNT 8.49 K/ul (4.6-10.2)
[2017-03-21 05:59] LABS: ANION GAP 12.2; BUN/CREATININE RATIO 16.86; CALCIUM 9.6 mg/dL (8.2-10.2); CREATININE 0.83 mg/dL (0.60-1.30); POTASSIUM 4.2 mmol/L (3.5-5.10)
[2017-03-21] MEDS ORDERED: CARAFATE PO SCH ×2 (06:30)
[2017-03-21] MEDS: PLETAL PO SCH ×2 (06:31→18:21)
[2017-03-21] MEDS: SOLU-MEDROL 125 MG IVP SCH ×3 (06:31→21:24)
--- NOTE | 2017-03-21 07:12 | DI ---
EXAM: Single view chest COMPARISON: Chest Xray from 12/08/2016 HISTORY: Cough FINDINGS: Lungs are clear with no lobar consolidation, failure, large effusion or significant atelec tasis. There is old granulomatous disease. There is flattening of the hemidiaphragms. Cardiac and me diastinal silhouettes show no acute abnormality. There is calcification of the aorta. No acute soft t issue or osseous abnormalities. IMPRESSION: 1. No active disease. 2. Chronic obstructive pulmonary disease
[2017-03-21] MEDS ORDERED: NORCO 10-325 PO PRN (07:28)
[2017-03-21] MEDS ORDERED: PERFOROMIST NEB PRN (07:30)
[2017-03-21] MEDS ORDERED: MICRO-K CAP PO SCH (08:00)
[2017-03-21] MEDS ORDERED: NON-FORMULARY MEDICATION (Carvedilol [Coreg] 25 MG) PO SCH ×44 (08:00→09:00)
[2017-03-21] MEDS ORDERED: NON-FORMULARY MEDICATION (Duloxetine Hcl [Cymbalta] 60 MG) PO SCH ×22 (09:00)
[2017-03-21] MEDS ORDERED: NON-FORMULARY MEDICATION (Losartan Potassium 50 MG) PO SCH (09:00)
[2017-03-21] MEDS ORDERED: NON-FORMULARY MEDICATION (Cholecalciferol (Vitamin D3) [Vitamin D3] 400 UNIT) PO SCH (09:00)
[2017-03-21] MEDS ORDERED: NON-FORMULARY MEDICATION (Ferrous Gluconate [Ferrous Gluconate] 324 MG) PO SCH (09:00)
[2017-03-21] MEDS: ASPIRIN CHEWABLE PO SCH (10:17)
[2017-03-21] MEDS: APRESOLINE PO SCH ×2 (10:17→21:23)
[2017-03-21] MEDS: COREG PO SCH ×2 (10:18→18:21)
[2017-03-21] MEDS: COZAAR PO SCH (10:18)
[2017-03-21] MEDS: VITAMIN D PO SCH (10:19)
[2017-03-21] MEDS: FERROUS SULFATE PO SCH ×2 (10:20→21:24)
[2017-03-21] MEDS: NON-FORMULARY MEDICATION (Cyanocobalamin (Vitamin B-12) [B-12] 500 MCG) PO SCH ×22 (10:20)
[2017-03-21] MEDS: LEXAPRO PO SCH (10:20)
[2017-03-21] MEDS: ZITHROMAX PO SCH (10:20)
[2017-03-21] MEDS: DALIRESP PO SCH (10:21)
[2017-03-21] MEDS: CYMBALTA PO SCH (10:21)
[2017-03-21] MEDS: DYAZIDE PO SCH (10:21)
[2017-03-21] MEDS: KLOR-CON 8 MEQ PO SCH (10:22)
[2017-03-21] MEDS: LOVENOX SUBCUT SCH (10:22)
[2017-03-21] MEDS: LYRICA PO SCH ×2 (10:53→21:47)
[2017-03-21] MEDS: SODIUM CHLORIDE 1,000 ML IV SCH (12:39)
[2017-03-21] MEDS: CRESTOR PO SCH (21:23)
[2017-03-21] MEDS: XANAX PO PRN (22:31)
[2017-03-22] MEDS: DUONEB NEB SCH ×6 (01:02→21:00)
[2017-03-22] MEDS: SODIUM CHLORIDE 1,000 ML IV SCH (02:43)
[2017-03-22 05:55] LABS: BASOPHILS % (AUTO) 0.1 % (0.0-3.0); HEMATOCRIT 24.2 % (37.0-47.0); HEMOGLOBIN 8.2 g/dl (12.0-16.0); IMMATURE GRANULOCYTE % (AUTO) 1.3 % (0.0-5.0); LYMPHOCYTES # (AUTO) 1.1 K/uL (0.60-3.4); LYMPHOCYTES % (AUTO) 9.9 (10.0-50.0); MEAN CORPUSCULAR HEMOGLOBIN 28.7 pg (27.0-31.0); MEAN CORPUSCULAR HGB CONC 33.9 (31.8-35.4); MEAN CORPUSCULAR VOLUME 84.6 fl (81.0-99.0); MONOCYTES # (AUTO) 0.5 K/uL (0.4-2.0); MONOCYTES % (AUTO) 4.7 (0-10); NEUTROPHILS # (AUTO) 9.4 K/ul (2.0-6.9); PLATELET COUNT 142 10^3/uL (140-440); RED BLOOD COUNT 2.86 10^6/ul (4.20-5.40); WHITE BLOOD COUNT 11.14 K/ul (4.6-10.2)
[2017-03-22 06:19] LABS: ANION GAP 11.5; BUN/CREATININE RATIO 19.48; CALCIUM 9.1 mg/dL (8.2-10.2); CREATININE 0.77 mg/dL (0.60-1.30); POTASSIUM 3.5 mmol/L (3.5-5.10)
[2017-03-22] MEDS: SOLU-MEDROL 125 MG IVP SCH ×4 (07:47→21:19)
[2017-03-22] MEDS: PLETAL PO SCH ×2 (07:47→17:04)
[2017-03-22] MEDS: CATAPRES PO PRN ×2 (08:57→14:38)
[2017-03-22] MEDS: ASPIRIN CHEWABLE PO SCH (10:16)
[2017-03-22] MEDS: VITAMIN D PO SCH (10:16)
[2017-03-22] MEDS: DYAZIDE PO SCH (10:17)
[2017-03-22] MEDS: FERROUS SULFATE PO SCH ×2 (10:17→21:20)
[2017-03-22] MEDS: CYMBALTA PO SCH (10:17)
[2017-03-22] MEDS: COREG PO SCH ×2 (10:17→17:04)
[2017-03-22] MEDS: COZAAR PO SCH (10:17)
[2017-03-22] MEDS: DALIRESP PO SCH (10:17)
[2017-03-22] MEDS: LEXAPRO PO SCH (10:18)
[2017-03-22] MEDS: APRESOLINE PO SCH ×2 (10:18→21:20)
[2017-03-22] MEDS: ZITHROMAX PO SCH (10:18)
[2017-03-22] MEDS: LOVENOX SUBCUT SCH (10:18)
[2017-03-22] MEDS: NON-FORMULARY MEDICATION (Cyanocobalamin (Vitamin B-12) [B-12] 500 MCG) PO SCH ×22 (10:19)
[2017-03-22] MEDS: KLOR-CON 8 MEQ PO SCH (10:19)
[2017-03-22] MEDS: LYRICA PO SCH ×2 (10:21→21:20)
--- NOTE | 2017-03-22 10:24 | PCM.PROG ---
Attending Provider: ATTENDING PROVIDER: Dr. SIDDHARTHA BRITO This patient is seen with Rupal Perez, Nurse Practitioner. DATE OF SERVICE: 03/22/17 SUBJECTIVE: This 71 year old WHITE/ F was hospitalized 03/20/17. The patient is lying in bed, alert. Shortness of breath improved. REVIEW OF SYSTEMS: CONSTITUTIONAL: Weakness. No night sweats. No fever or chills. HEENT: Eyes: No visual changes. No eye pain. No eye discharge. ENT: No runny nose. No epistaxis. No sinus pain. No odynophagia. No congestion. RESPIRATORY: Cough and congestion. No hemoptysis. Improving shortness of breath. CARDIOVASCULAR: No angina symptoms. No CHF symptoms. No atypical chest pain for CAD. No palpitations. No orthopnea.. GASTROINTESTINAL: No abdominal pain. No nausea or vomiting. No diarrhea or constipation. No hematemesis. No hematochezia. GENITOURINARY: No urgency. No frequency. No dysuria. No hematuria. No obstructive symptoms. No discharge. No pain. No significant abnormal bleeding. MUSCULOSKELETAL: No musculoskeletal pain; no joint swelling. NEUROLOGICAL: Awake, alert, oriented to time, place and person. No headache. No neck pain. No syncope. No seizures. No dizziness. PSYCHIATRIC: Not anxious. No depression. No suicidal thoughts. No homicidal thoughts. SKIN: No rash. No lesions. No wounds. ENDOCRINE: No unexplained weight loss. No weight gain. HEMATOLOGIC/LYMPHATIC: No anemia. No purpura. No petechiae. No prolonged or excessive bleeding. No palpable lymph nodes. PHYSICAL EXAMINATION: GENERAL: The patient is awake, alert and oriented, lying in bed in no distress. VITAL SIGNS: Temperature 97.8 F, Pulse 88, Respiratory Rate 20, BP 186/80, Pulse Ox 98% HEENT: Head normocephalic, atraumatic. Eyes: Extraocular muscles are intact. Pupils are equal, round and reactive to light and accommodation. Ears: No lesions. Nose appeared normal. Throat: No exudate or erythema. NECK: Supple. No JVD, no carotid bruit. No lymphadenopathy or thyromegaly. LUNGS: Bilateral inspiratory and expiratory wheeze. Percussion note normal. Chest symmetrical. HEART: S1, S2, no S3. No murmurs. No cyanosis or clubbing. No ascites. Pulses: Dorsalis pedis and posterior tibial pulses +1 to +2 both sides. ABDOMEN: Soft. Non-tender. Bowel sounds active. No CVA tenderness. No mass felt. EXTREMITIES: No edema. Full range of motion of all extremities, equal. NEUROLOGIC: No focal deficit. Cranial nerves II through XII are grossly intact. No headache, no double vision or headache. SKIN: Not dry. Intact. Turgor-normal. LYMPHATIC: No palpable lymph nodes/no lymphedema. MUSCULOSKELETAL: Normal joints with no swelling. Muscle tone is normal. LAB REVIEW: 03/22/17 05:35 03/22/17 05:35 03/22/17 05:35: Sodium 134 L, Potassium 3.5, Chloride 99, Carbon Dioxide 27, Anion Gap 11.5, BUN 15, Creatinine 0.77, Estimated GFR (MDRD) 74.00, BUN/ Creatinine Ratio 19.48, Glucose 177 H, Calcium 9.1 03/22/17 05:35: WBC 11.14 H, RBC 2.86 L, Hgb 8.2 L, Hct 24.2 L, MCV 84.6, MCH 28.7, MCHC 33.9, RDW Coeff of Tr 15.9 H, Plt Count 142, Immature Gran % (Auto) 1.3, Neut % (Auto) 84.0, Lymph % (Auto) 9.9 L, [place] % (Auto) 4.7, Eos % (Auto) 0.0, Baso % (Auto) 0.1, Immature Gran # (Auto) 0.1, Neut # 9.4 H, Lymph # 1.1, [place] # 0.5, Eos # 0.0, Baso # 0.0 ASSESSMENT: 1. ACUTE COPD EXACERBATION 2. SNF SMOKER 3. CHRONIC ANEMIA 4. HISTORY OF HYPOKALEMIA 5. CORONARY ARTERY DISEASE 6. HYPERTENSION 7. ANXIETY PLAN: 1. D/C IV fluids 2. Clonidine if blood pressure is greater than 160 Plan and coordination of the patient's care discussed in the presence of Campus Recruiting Intern and nurse. CONDITION: Stable SCRIBED BY: KENISHA FRY Global Program Director scribed while in presence of service performed by Dr. Brito/Rupal Perez APRN on 03/22/17 ([id number])
[2017-03-22] MEDS: CRESTOR PO SCH (21:19)
[2017-03-22] MEDS: XANAX PO PRN (23:57)
[2017-03-23] MEDS: DUONEB NEB SCH ×3 (01:13→10:03)
[2017-03-23 04:30] LABS: BASOPHILS % (AUTO) 0.1 % (0.0-3.0); HEMATOCRIT 24.3 % (37.0-47.0); HEMOGLOBIN 8.3 g/dl (12.0-16.0); IMMATURE GRANULOCYTE % (AUTO) 2.5 % (0.0-5.0); LYMPHOCYTES # (AUTO) 0.7 K/uL (0.60-3.4); LYMPHOCYTES % (AUTO) 8.4 (10.0-50.0); MEAN CORPUSCULAR HEMOGLOBIN 28.6 pg (27.0-31.0); MEAN CORPUSCULAR HGB CONC 34.2 (31.8-35.4); MEAN CORPUSCULAR VOLUME 83.8 fl (81.0-99.0); MONOCYTES # (AUTO) 0.3 K/uL (0.4-2.0); MONOCYTES % (AUTO) 3.3 (0-10); NEUTROPHILS # (AUTO) 7.6 K/ul (2.0-6.9); NEUTROPHILS % (AUTO) 85.7; PLATELET COUNT 148 10^3/uL (140-440); WHITE BLOOD COUNT 8.82 K/ul (4.6-10.2)
[2017-03-23 04:51] LABS: ALBUMIN 2.7 g/dL (3.4-5.0); ANION GAP 10.5; BILIRUBIN,TOTAL 0.26 mg/dL (0.00-1.20); BUN/CREATININE RATIO 21.79; CALCIUM 8.9 mg/dL (8.2-10.2); CREATININE 0.78 mg/dL (0.60-1.30); POTASSIUM 3.5 mmol/L (3.5-5.10); TOTAL PROTEIN 5.4 g/dL (5.8-8.1)
[2017-03-23] MEDS: PLETAL PO SCH (06:03)
[2017-03-23] MEDS: SOLU-MEDROL 125 MG IVP SCH ×2 (06:17→12:12)
[2017-03-23] MEDS: COREG PO SCH (08:17)
[2017-03-23] MEDS: APRESOLINE PO SCH (08:17)
[2017-03-23] MEDS: LYRICA PO SCH (08:17)
[2017-03-23] MEDS: ASPIRIN CHEWABLE PO SCH (08:17)
[2017-03-23] MEDS: LOVENOX SUBCUT SCH (08:17)
[2017-03-23] MEDS: COZAAR PO SCH (08:17)
[2017-03-23] MEDS: DALIRESP PO SCH (08:18)
[2017-03-23] MEDS: VITAMIN D PO SCH (08:18)
[2017-03-23] MEDS: DYAZIDE PO SCH (08:18)
[2017-03-23] MEDS: ZITHROMAX PO SCH (08:18)
[2017-03-23] MEDS: KLOR-CON 8 MEQ PO SCH (08:18)
[2017-03-23] MEDS: NON-FORMULARY MEDICATION (Cyanocobalamin (Vitamin B-12) [B-12] 500 MCG) PO SCH ×22 (08:19)
[2017-03-23] MEDS: FERROUS SULFATE PO SCH (08:19)
[2017-03-23] MEDS: CYMBALTA PO SCH (08:19)
[2017-03-23] MEDS: LEXAPRO PO SCH (08:19)
[2017-03-23 09:00] LABS: ABG BASE EXCESS 4 (-2.0-2.0); ABG HCO3 28.9 (22.0-26.0); ABG PCO2 45.6 mmHg (35-45); ABG PH 7.411 (7.35-7.45); ABG TCO2 30 (22.0-28.0)
--- NOTE | 2017-03-23 09:07 | HP ---
DATE OF SERVICE: 03/21/17 (ADMITTED 03/20/17) HISTORY OF PRESENT ILLNESS: This is a 71-year-old female with a long history of COPD and is oxygen dependent. She has recurrent acute exacerbation with history of anemia as well as hypokalemia. She presented to the emergency room stating that she had been getting more short of breath and coughing, had a productive cough. PAST MEDICAL HISTORY: Dyslipidemia Coronary artery disease Hypertension Peripheral arterial disease COPD, oxygen dependent Anxiety Depression Degenerative joint disease Long-term smoker Osteoarthritis PAST SURGICAL HISTORY: Coronary artery disease with stent placement Hysterectomy REVIEW OF SYSTEMS: CONSTITUTIONAL: No night sweats. No fatigue, malaise, lethargy. No fever or chills. The patient is in mild respiratory distress. HEENT: Eyes: No visual changes. No eye pain. No eye discharge. No blurry vision. ENT: No runny nose. No epistaxis. No sinus pain. No sore throat. No odynophagia. No ear pain. No congestion. RESPIRATORY: Positive for cough, shortness of breath and wheezing. No hemoptysis. No shortness of breath. CARDIOVASCULAR: No angina symptoms. No CHF symptoms. No atypical chest pain for CAD. No palpitations. No orthopnea. GASTROINTESTINAL: Positive for appetite loss. No abdominal pain. No nausea or vomiting. No diarrhea or constipation. No hematemesis. No hematochezia. GENITOURINARY: No urgency. No frequency. No dysuria. No hematuria. No obstructive symptoms. No discharge. No pain. No significant abnormal bleeding. MUSCULOSKELETAL: No musculoskeletal pain. No joint swelling or redness. Positive for osteoarthritis pain. NEUROLOGICAL: Anxious. Alert, oriented. No confusion. No headache. No neck pain. No syncope. No seizures. No dizziness. PSYCHIATRIC: Not anxious. No depression. No suicidal thoughts. No homicidal thoughts. SKIN: No rash. No lesions. No wounds. ENDOCRINE: No unexplained weight loss. No weight gain. HEMATOLOGIC/LYMPHATIC: No anemia. No purpura. No petechiae. No prolonged or excessive bleeding. No palpable lymph nodes. PERSONAL/FAMILY/SOCIAL HISTORY: The patient is , lives at home with her . She is a current every day heavy smoker. Denies any alcohol or illicit drug use. MEDICATIONS: Pletal 100 mg b.i.d. B12 500 mcg daily Potassium 5 mEq daily Daliresp 500 mcg daily Ferrous Sulfate 325 mg b.i.d. Cymbalta 60 mg daily Crestor 20 mg daily Brovana b.i.d. Aspirin 81 mg daily Coreg 25 mg b.i.d. Lexapro 10 mg daily Dyazide daily Lyrica 50 mg b.i.d. Steal[place] daily Xanax 0.25 mg b.i.d. p.r.n. Clonidine 0.1 mg b.i.d. p.r.n. Losartan 50 mg daily Hydralazine 50 mg b.i.d. [place] 10/500 t.i.d. p.r.n. ALLERGIES: NKDA PHYSICAL EXAMINATION: GENERAL: The patient is ill-appearing in mild distress. HEENT: Head normocephalic, atraumatic. Eyes: Extraocular muscles are intact. Pupils are equal, round and reactive to light and accommodation. Ears: No lesions. Nose appeared normal. Throat: No exudate or erythema. NECK: Supple. No JVD, no carotid bruit. No lymphadenopathy or thyromegaly. LUNGS: Severely diminished breath sounds bilaterally with bilateral inspiratory and expiratory wheeze. Percussion note normal. Chest symmetrical. HEART: Regular rate and rhythm. S1, S2, no S3. No murmurs, clicks or rubs. No cyanosis or clubbing. No ascites. Pulses: Dorsalis pedis and posterior tibial pulses +1 to +2 both sides. ABDOMEN: Soft. Nontender. Bowel sounds active times four quadrants. No hepatosplenomegaly. No CVA tenderness. No mass felt. EXTREMITIES: No edema. Full range of motion of all extremities, equal. NEUROLOGIC: The patient is alert and oriented times three. No focal deficit. Cranial nerves II through XII are grossly intact. No headache, no double vision or headache. SKIN: Not dry. Intact. Turgor - normal. LYMPHATIC: No palpable lymph nodes/no lymphedema. MUSCULOSKELETAL: The patient has full range of motion times four extremities. No edema. No calf tenderness. Negative Enzo's sign bilaterally. No clubbing or cyanosis. Normal joints with no swelling. Muscle tone is normal. LABS: White count 10.64, hemoglobin 9.6, hematocrit 29.2, platelets 140. Sodium 137, potassium 3.8, chloride 96, carbon dioxide 32, BUN 9, creatinine 0.72, bilirubin 0.44, AST 13, ALT 9, Alkaline phosphatase 61. Total CK 34, troponin 0.01. ABGs on 2L 7.862 pH, pc02 12.5, p02 151. Bicarb 22.4, c02 23, base excess of 5. Chest x-ray revealed no acute pneumonia, changes associated with COPD. ASSESSMENT: 1. Acute respiratory failure 2. Severe COPD with acute exacerbation, oxygen dependent 3. Coronary artery disease 4. History of anemia 5. Dyslipidemia 6. Anxiety 7. Fci smoker 8. Shortness of breath PLAN: 1. Will admit to Special Care Unit 2. CBC, CMP daily 3. Chest x-ray 4. Oxygen p.r.n. 5. Solu-Medrol 125 mg q.8hr 6. Zithromax 250 mg p.o. daily 7. Albuterol neb treatments q.4hr 8. Sputum for culture and sensitivity 9. Routine telemetry orders 10. Continue home medications TIME SPENT: More than 70 minutes. MTDD
[2017-03-23 09:41] VITALS: BP 171/73; TEMP 98.1
--- NOTE | 2017-03-23 09:47 | PN ---
DATE OF SERVICE: 03/20/17 SUBJECTIVE: The patient came to the emergency room in respiratory distress. The patient has been sick for past few days. She didn't come to the office. Thought about calling and getting appointment. The patient has continued to smoke. She has severe COPD endstage along with coronary artery disease and peripheral arterial disease and malnutrition. The patient was in the emergency room treated with NEBS treatments and given steroids. She will be started Rocephin and Zithromax. The patient has no symptoms of CHF. Her ABG showed pH 7.54 with pO2 70 with pCO2 54 on 3 liters. I discussed the case with Dr. Harper. The patient needs to be put in special care. We will continue the rest of the medications with Telemetry. In the past the patient has been DNR. CONDITION: Stable. TIME SPENT: More than 30 minutes. Plan and coordination of the patient's care discussed in the presence of nurse. KEVIN
--- NOTE | 2017-03-23 10:56 | CM.DICTOOL ---
ADMISSION: 03/20/17 20:32 DISCHARGE: 03/23/17 DATE OF SERVICE: 03/23/17 FINAL DIAGNOSIS COPD EXACERBATION PULMONARY NODULE, [address] NEUROPATHY HYPERTENSION DYSLIPIDEMIA DEPRESSION/ANXIETY OSTEOARTHRITIS DJD SPINE CAROTID OCCLUSIVE DISEASE INFRARENAL ARTERY STENOSIS HYSTERECTOMY, 1989 AORTOILIAC BYPASS BILATERAL FEM-POP PROCEDURE AAA, 1997 [facility] (LVEF 53% -ECHO 11/02) LAST VITALS Temp Pulse Resp BP Pulse Ox 98.1 F 103 H 20 171/73 H 96 03/23/17 09:40 03/23/17 09:40 03/23/17 09:40 03/23/17 09:40 03/23/17 09:40 ACTIVE MEDICATIONS Acetaminophen/Hydrocodone Bitart ([place] 10-325) 1 tab PO TID PRN PRN Reason: PAIN Last Admin: 03/21/17 22:30 Dose: 1 tab Alprazolam (Xanax) 0.25 mg PO BID PRN PRN Reason: anxiety Last Admin: 03/22/17 23:57 Dose: 0.25 mg Arformoterol Tartrate (Brovana) 1 Vial IH Q12H PRN Aspirin (Aspirin Chewable) 81 mg PO DAILYWM [facility] Last Admin: 03/23/17 08:17 Dose: 81 mg Azithromycin (Zithromax) 250 mg PO DAILY [facility] Stop: 03/24/17 09:01 Last Admin: 03/23/17 08:18 Dose: 250 mg Carvedilol (Coreg) 25 mg PO BIDWM [facility] Last Admin: 03/23/17 08:17 Dose: 25 mg Cholecalciferol (Vitamin D) 400 unit PO DAILY [facility] Last Admin: 03/23/17 08:18 Dose: 400 unit Cilostazol (Pletal) 100 mg PO BIDAC [facility] Last Admin: 03/23/17 06:03 Dose: 100 mg Clonidine (Catapres) 0.1 mg PO BID PRN PRN Reason: Hypertension Last Admin: 03/22/17 14:38 Dose: 0.1 mg Duloxetine HCl (Cymbalta) 60 mg PO DAILY [facility] Last Admin: 03/23/17 08:19 Dose: 60 mg Escitalopram Oxalate (Lexapro) 10 mg PO DAILY [facility] Last Admin: 03/23/17 08:19 Dose: 10 mg Ferrous Sulfate (Ferrous Sulfate) 324 mg PO BID [facility] Last Admin: 03/23/17 08:19 Dose: 324 mg Hydralazine HCl (Apresoline) 50 mg PO BID [facility] Last Admin: 03/23/17 08:17 Dose: 50 mg Losartan Potassium (Cozaar) 50 mg PO DAILY [facility] Last Admin: 03/23/17 08:17 Dose: 50 mg Cyanocobalamin (Vitamin B-12) [B-12] 500 mcg PO DAILY [facility] Last Admin: 03/23/17 08:19 Dose: Not Given Tiotropium Br/Olodaterol Hcl [Stiolto Respimat Inhal [place]] 2.5 mcg IH DAILY [facility] Last Admin: 03/23/17 08:20 Dose: Not Given Potassium Chloride (Klor-Con 5 Meq) 5 meq PO DAILYWM [facility] Last Admin: 03/23/17 08:18 Dose: 8 meq Pregabalin (Lyrica) 50 mg PO BID [facility] Last Admin: 03/23/17 08:17 Dose: 50 mg Roflumilast (Daliresp) 500 mcg PO DAILY [facility] Last Admin: 03/23/17 08:18 Dose: 500 mcg Rosuvastatin Calcium (Crestor) 20 mg PO BEDTIME [facility] Last Admin: 03/22/17 21:19 Dose: 20 mg Triamterene/HCTZ (Dyazide) 1 cap PO DAILY [facility] Last Admin: 03/23/17 08:18 Dose: 1 cap ALLERGIES No Known Allergies Allergy (Verified 12/25/16 14:42) NEW PRESCRIPTIONS: PREDNISONE 10 MG, TAKE TWO TABLETS BY MOUTH (20 MG) THREE TIMES DAILY FOR 2 DAYS , THEN 2 TABLETS BY MOUTH (20 MG) TWICE DAILY FOR 3 DAYS, THEN ONE TABLET BY MOUTH (10 MG) TWICE DAILY FOR 3 DAYS, THEN TAKE ONE TABLET BY MOUTH (10 MG) DAILY X 2 DAYS. TAKE THIS MEDICATION WITH FOOD. SMOKING: CURRENT EVERYDAY SMOKER THE PATIENT HAS BEE PROVIDED EDUCATION/INFORMATION REGARDING THE BENEFITS OF SMOKING CESSATION. SHE IS ALSO MADE AWARE OF THE RISKS TO HER CARDIOVASCULAR AND PULMONARY HEALTH. SHE HAS NOT VERBALIZED HER INTENT TO STOP SMOKING. SHE WILL BENEFIT FROM REINFORCEMENT OF THE INFORMATION PROVIDED AND ENCOURAGEMENT TO COMPLETELY STOP SMOKING. DISEASE SPECIFIC EDUCATION: COPD OXYGEN USE HOME MEDICATION NEW PRESCRIPTIONS ACTIVITY FOLLOW UP LAB REVIEW: 03/23/17 04:00 03/23/17 04:00 03/23/17 08:19: Puncture Site Rrad, O2 Saturation 95.0, ABG pH 7.411, ABG pCO2 45.6 H, ABG pO2 76.0 L, ABG HCO3 28.9 H, ABG Total CO2 30 H, ABG Base Excess 4 H , Miki Test +, O2 Delivery Device Nc, Oxygen Liter Flow 2.00 03/23/17 04:00: Sodium 134 L, Potassium 3.5, Chloride 97 L, Carbon Dioxide 30, Anion Gap 10.5, BUN 17, Creatinine 0.78, Estimated GFR (MDRD) 73.00, BUN/ Creatinine Ratio 21.79, Glucose 156 H, Calcium 8.9, Total Bilirubin 0.26, AST 12 L, ALT 7 L, Alkaline Phosphatase 57, Total Protein 5.4 L, Albumin 2.7 L, Globulin 2.7, Albumin/Globulin Ratio 1.00 03/23/17 04:00: WBC 8.82, RBC 2.90 L, Hgb 8.3 L, Hct 24.3 L, MCV 83.8, MCH 28.6 , MCHC 34.2, RDW Coeff of Tr 15.8 H, Plt Count 148, Immature Gran % (Auto) 2.5 , Neut % (Auto) 85.7, Lymph % (Auto) 8.4 L, [place] % (Auto) 3.3, Eos % (Auto) 0.0 , Baso % (Auto) 0.1, Immature Gran # (Auto) 0.2, Neut # 7.6 H, Lymph # 0.7, [place] # 0.3 L, Eos # 0.0, Baso # 0.0 PLAN: DISCHARGE HOME TODAY RETURN TO SEE DR. BRITO IN 5-7 DAYS. PLEASE PHONE HIS OFFICE TO SCHEDULE YOUR FOLLOW UP APPOINTMENT ([phone]) RESUME YOUR HOME MEDICATIONS PER LIST PROVIDED BY THE NURSING STAFF NEW PRESCRIPTIONS PREDNISONE 10 MG, TAKE TWO TABLETS BY MOUTH (20 MG) THREE TIMES DAILY FOR 2 DAYS , THEN 2 TABLETS BY MOUTH (20 MG) TWICE DAILY FOR 3 DAYS, THEN ONE TABLET BY MOUTH (10 MG) TWICE DAILY FOR 3 DAYS, THEN TAKE ONE TABLET BY MOUTH (10 MG) DAILY X 2 DAYS. TAKE THIS MEDICATION WITH FOOD. ACTIVITY GET PLENTY OF REST AT HOME. GRADUALLY INCREASE YOUR ACTIVITY ACCORDING TO YOUR TOLERATION DIET HEALTHY HEART SUMMARY THE PATIENT IS ALERT AND ORIENTED X3. SHE CURRENTLY RESIDES AT HOME WITH HER SPOUSE. SHE IS INDEPENDENT WITH ADL'S BUT IN TIMES OF ILLNESS, SHE DEPENDS ON HER SPOUSE AND FAMILY FOR ASSISTANCE. SHE HAS HOME OXYGEN AND A NEBULIZER. SHE CURRENTLY DOES NOT UTILIZE ANY HOME HEALTH OR HOMEMAKING SERVICES. SHE DESIRES TO RETURN TO HER HOME AT DISCHARGE. THE SKIN TURGOR IS INTACT AND WITHOUT DECUBITUS ULCERS. HYDRATION AND NUTRITIONAL STATUS IS GOOD. THE PATIENT IS AWARE AND AGREEABLE FOR DISCHARGE PLANS TODAY. CURRENT CODE STATUS DO NOT INTUBATE CPR ONLY MILDRED TRAN, MEDICAL ACCOUNTING CLERK SIDDHARTHA BRITO M.D.
--- NOTE | 2017-03-23 11:04 | PCM.PROG ---
Attending Provider: ATTENDING PROVIDER: Dr. SIDDHARTHA BRITO This patient is seen with Rupal Perez, Nurse Practitioner. DATE OF SERVICE: 03/23/17 SUBJECTIVE: This 71 year old WHITE/ F was hospitalized 03/20/17. The patient is lying in bed, alert. She had an episode of shortness of breath last night otherwise is feeling better. Will do ABGs today and see about discharge. REVIEW OF SYSTEMS: CONSTITUTIONAL: No night sweats. No fatigue, malaise, lethargy. No fever or chills. HEENT: Eyes: No visual changes. No eye pain. No eye discharge. ENT: No runny nose. No epistaxis. No sinus pain. No odynophagia. No congestion. RESPIRATORY: Shortness of breath. No cough, no congestion. No hemoptysis. CARDIOVASCULAR: No angina symptoms. No CHF symptoms. No atypical chest pain for CAD. No palpitations. No orthopnea. GASTROINTESTINAL: No abdominal pain. No nausea or vomiting. No diarrhea or constipation. No hematemesis. No hematochezia. GENITOURINARY: No urgency. No frequency. No dysuria. No hematuria. No obstructive symptoms. No discharge. No pain. No significant abnormal bleeding. MUSCULOSKELETAL: No musculoskeletal pain; no joint swelling. NEUROLOGICAL: Awake, alert, oriented to time, place and person. No headache. No neck pain. No syncope. No seizures. No dizziness. PSYCHIATRIC: Not anxious. No depression. No suicidal thoughts. No homicidal thoughts. SKIN: No rash. No lesions. No wounds. ENDOCRINE: No unexplained weight loss. No weight gain. HEMATOLOGIC/LYMPHATIC: No anemia. No purpura. No petechiae. No prolonged or excessive bleeding. No palpable lymph nodes. PHYSICAL EXAMINATION: GENERAL: The patient is awake, alert and oriented, lying in bed in no distress. VITAL SIGNS: Temperature 98.4 F, Pulse 81, Respiratory Rate 18, BP 152/76, Pulse Ox 94% HEENT: Head normocephalic, atraumatic. Eyes: Extraocular muscles are intact. Pupils are equal, round and reactive to light and accommodation. Ears: No lesions. Nose appeared normal. Throat: No exudate or erythema. NECK: Supple. No JVD, no carotid bruit. No lymphadenopathy or thyromegaly. LUNGS: Diminished breath sounds bilaterally. Clear to auscultation. Percussion note normal. Chest symmetrical. HEART: S1, S2, no S3. No murmurs. No cyanosis or clubbing. No ascites. Pulses: Dorsalis pedis and posterior tibial pulses +1 to +2 both sides. ABDOMEN: Soft. Non-tender. Bowel sounds active. No CVA tenderness. No mass felt. EXTREMITIES: No edema. Full range of motion of all extremities, equal. NEUROLOGIC: No focal deficit. Cranial nerves II through XII are grossly intact. No headache, no double vision or headache. SKIN: Not dry. Intact. Turgor-normal. LYMPHATIC: No palpable lymph nodes/no lymphedema. MUSCULOSKELETAL: Normal joints with no swelling. Muscle tone is normal. LAB REVIEW: 03/23/17 04:00 03/23/17 04:00 03/23/17 04:00: Sodium 134 L, Potassium 3.5, Chloride 97 L, Carbon Dioxide 30, Anion Gap 10.5, BUN 17, Creatinine 0.78, Estimated GFR (MDRD) 73.00, BUN/ Creatinine Ratio 21.79, Glucose 156 H, Calcium 8.9, Total Bilirubin 0.26, AST 12 L, ALT 7 L, Alkaline Phosphatase 57, Total Protein 5.4 L, Albumin 2.7 L, Globulin 2.7, Albumin/Globulin Ratio 1.00 03/23/17 04:00: WBC 8.82, RBC 2.90 L, Hgb 8.3 L, Hct 24.3 L, MCV 83.8, MCH 28.6 , MCHC 34.2, RDW Coeff of Tr 15.8 H, Plt Count 148, Immature Gran % (Auto) 2.5 , Neut % (Auto) 85.7, Lymph % (Auto) 8.4 L, [place] % (Auto) 3.3, Eos % (Auto) 0.0 , Baso % (Auto) 0.1, Immature Gran # (Auto) 0.2, Neut # 7.6 H, Lymph # 0.7, [place] # 0.3 L, Eos # 0.0, Baso # 0.0 ASSESSMENT: 1. ACUTE COPD EXACERBATION 2. ALF SMOKER 3. CHRONIC ANEMIA 4. HISTORY OF HYPOKALEMIA 5. CORONARY ARTERY DISEASE 6. HYPERTENSION 7. ANXIETY PLAN: 1. ABGs 2. At discharge the patient will have Prednisone 20 mg t.i.d. for 2 days, 10 mg t.i.d. for 3 days, 10 mg b.i.d for 3 days then daily for two days Plan and coordination of the patient's care discussed in the presence of Pulverizing And Sifting Operator and nurse. CONDITION: SCRIBED BY: KENISHA FRY Fisher Mussel scribed while in presence of service performed by Dr. Brito/Rupal Perez APRN on 03/23/17 ([id number])
--- NOTE | 2017-03-23 13:42 | PN ---
DATE OF SERVICE: 03/21/17 SUBJECTIVE: 71 year old white female hospitalized with acute bronchitis, COPD and pneumonitis. The patient is feeling a lot better. REVIEW OF SYSTEMS: CONSTITUTIONAL: No night sweats. No fatigue, malaise, lethargy. No fever or chills. HEENT: Eyes: No visual changes. No eye pain. No eye discharge. ENT: No runny nose. No epistaxis. No sinus pain. No sore throat. No odynophagia. No congestion. RESPIRATORY: Mild cough, no congestion. No hemoptysis. No shortness of breath. CARDIOVASCULAR: No angina symptoms. No CHF symptoms. No atypical chest pain for CAD. No palpitations. No orthopnea. GASTROINTESTINAL: No abdominal pain. No nausea or vomiting. No diarrhea or constipation. No hematemesis. No hematochezia. GENITOURINARY: No urgency. No frequency. No dysuria. No hematuria. No obstructive symptoms. No discharge. No pain. No significant abnormal bleeding. MUSCULOSKELETAL: No musculoskeletal pain; no joint swelling. NEUROLOGICAL: No headache. No neck pain. No syncope. No seizures. No dizziness. PSYCHIATRIC: Not anxious. No depression. No suicidal thoughts. No homicidal thoughts. SKIN: No rash. No lesions. No wounds. ENDOCRINE: No unexplained weight loss. No weight gain. HEMATOLOGIC/LYMPHATIC: No anemia. No purpura. No petechiae. No prolonged or excessive bleeding. No palpable lymph nodes. PHYSICAL EXAMINATION: VITAL SIGNS: Temperature 98, pulse 68, respiratory rate 20, blood pressure 170/ 70 and pulse ox 96%. HEENT: Head normocephalic, atraumatic. Eyes: Extraocular muscles are intact. Pupils are equal, round and reactive to light and accommodation. Ears: No lesions. Nose appeared normal. Throat: No exudate or erythema. NECK: Supple. No JVD, no carotid bruit. No lymphadenopathy or thyromegaly. LUNGS: Decreased breath sounds with mild wheeze. Clear to auscultation. Percussion note normal. Chest symmetrical. HEART: S1, S2, no S3. No murmurs. No cyanosis or clubbing. No ascites. Pulses: Dorsalis pedis and posterior tibial pulses +1 to +2 both sides. ABDOMEN: Soft. Nontender. Bowel sounds active. No CVA tenderness. No mass felt. EXTREMITIES: No edema. Full range of motion of all extremities, equal. NEUROLOGIC: No focal deficit. Cranial nerves II through XII are grossly intact. No headache, no double vision or headache. SKIN: Not dry. Intact. Turgor - normal. LYMPHATIC: No palpable lymph nodes/no lymphedema. MUSCULOSKELETAL: Normal joints with no swelling. Muscle tone is normal. LABS: Hgb 9, hct 27, WBC 8,400 normal differential, creatinine 0.8, BUN 14, potassium 4.2. ASSESSMENT: 1. Acute bronchitis/pneumonitis, condition improving 2. COPD with smoking PLAN: 1. Counseling for smoking done 2. Continue antibiotics, Steroids, NEBS treatment 3. Steroid side effects with Avascular necrosis of femur bones, cataracts, osteoporosis discussed. 4. Bone density test declined. 5. Osteoporosis education carried out in detail 6. Advised Prolia 6 monthly with calcium supplements. TIME SPENT: More than 30 minutes. Plan and coordination of the patient's care discussed in the presence of nurse. KEVIN
--- NOTE | 2017-03-24 09:25 | PN ---
DATE OF SERVICE: 03/22/17 SUBJECTIVE: The patient was seen and examined with Nurse Practitioner and Biomedical Technician. The patient's condition is improving. She was admitted with acute bronchitis/ pneumonitis. TIME SPENT: More than 30 minutes. Plan and coordination of the patient's care discussed in the presence of nurse. KEVIN
--- NOTE | 2017-03-25 13:00 | DS ---
DATE OF SERVICE: 03/23/17 FINAL DIAGNOSIS: 1. COPD exacerbation 2. Pulmonary Nodule, 4mm per CT 3. Neuropathy 4. Hypertension 5. Dyslipidemia 6. Depression/anxiety 7. Osteoarthritis 8. DJD spine 9. Carotid occlusive disease 10.Infrarenal artery stenosis 11.Hysterectomy, 1989 12.Aortoiliac Bypass 13.Bilateral Fem-Pop Procedure 14.AAA, 1997 15.LVH(LVEF 53%-Echo 11/02) LAST VITALS: Temperature 98.1, pulse 103, respiratory rate 20, blood pressure 171/73 and pulse ox 96%. DISCHARGE INSTRUCTIONS: Discharge home today. Return to see Dr. Dawson in 5-7 days. Resume home medication as per list provided by the nursing staff. MEDICATIONS AT DISCHARGE: Simon 10-325 PO three times a day PRN Xanax 0.25mg PO twice a day PRN Brovana 1 vial IH Q 12 hour PRN Aspirin 81mg PO daily Zithromax 250mg PO daily Coreg 25mg PO twice a day Vitamin D 400unit PO daily Pletal 100mg PO twice a day Catapres 0.1mg Po twice a day PRN Cymbalta 60mg Po daily Lexapro 10mg Po daily Ferrous Sulfate 324mg Po twice a day Apresoline 50mg PO twice a day Cozaar 50mg PO daily Vitamin B12 500mcg PO daily Stiolto Respimat Inhal [place] 2.5 mcg IH daily Klor-Con 5meq PO daily Lyrica 50mg Po twice a day Daliresp 500mcg PO daily Crestor 20mg PO bedtime Dyazide one cap PO daily ALLERGIES: No known allergies NEW PRESCRIPTIONS: Prednisone 10mg take two tablets by mouth 20mg three times daily for 2 days then two tablets by mouth (20mg) twice daily for 3 days, then one tablet by mouth (10mg) twice daily for 3 days, then take one tablet by mouth (10mg) daily x2 days. Take this medication with food. DIET INSTRUCTIONS: Healthy heart ACTIVITY: Get plenty of rest at home. Gradually increase your activity according to your toleration. SMOKING: Current everyday smoker The patient has been provided education/information regarding the benefits of smoking cessation. She is also made aware of the risks to her cardiovascular and pulmonary health. She has not verbalized her intent to stop smoking. She will benefit from reinforcement of the information provided and encouragement to completely stop smoking. DISEASE SPECIFIC EDUCATION: COPD Oxygen use Home medication New prescriptions Activity Followup HOSPITAL COURSE: This is a 71 year old female with a long history of COPD who is oxygen dependant. She presented to the emergency room with increasing shortness of breath and cough. She was in mild respiratory distress. She was admitted to the special care unit with acute respiratory failure. She has a history of hypokalemia and anemia. Chest x-ray revealed changes associated with COPD. She had no pneumonia and was afebrile. She does have a stable pulmonary nodule per chest CT. When admitted ABG's on 2 liters were severely abnormal. Within 24 hours of being on IV steroid therapy, Oxygen and NEBS treatment her breathing has significantly improved. Today on day of discharge she has been up and about. She is back down to two liters on her oxygen. Her ABG's have significantly improved on 2 liters. pH 7.4, pCO2 45, pO2 76 with base excess of 4, bicarb 28.9, TCo2 30 with an O2 saturation of 95%. The O2 sat on admission I do believe was 87. She is no distress and has been eating. She does have a hgb of 8.3 but again this has been stable for the past 2 days and it has actually increased from 8.2 yesterday. She does have a long history of anemia and this is not uncommon for her. She is asymptomatic with hgb of 8.3. Her electrolytes look good, 134 sodium, potassium 3.5, BUN 17, creatinine 0.78. She has a long history of Labile hypertension. She was hypotensive on admission due to extreme respiratory distress. Her blood pressure normalized was 140/76 today. Temperature 98.4, heart rate 81, respiratory rate 18, and pulse ox 94% on 2 liters. She will discharged home on a tapering dose of steroids. She has completed three days of PO Zithromax here at the hospital. We will do Prednisone 20mg three times a day for 2 days then twice a day for three days, Prednisone 10mg twice a day for 3 days and then once daily for two days for a total of 10 days of Prednisone treatment. She is to continue to use her oxygen. Information was provided and advised regarding smoking cessation as she is a termite control service representative smoker. She has a nebulizer machine at home for which she will continue Albuterol NEBS treatments as well as her Pulmicort. We will followup with her in the office next weeks. She is discharged in stable condition. TIME SPENT: More than 60 minutes. KEVIN
== END 2017-03-23 13:15 | disposition home or self-care (01) | DRG 190 ==
LOC: ED 18:42 → SCU 20:32 → MEDSURG B 03-22 14:55
PROVIDERS: ADMIT Internal Medicine; ATTEND Internal Medicine
DX: J44.1 Chronic obstructive pulmonary disease with (acute) exacerbation (principal); J96.00 Acute respiratory failure, unspecified whether with hypoxia or hypercapnia; E46 Unspecified protein-calorie malnutrition; J44.0 Chronic obstructive pulmonary disease with (acute) lower respiratory infection; J20.9 Acute bronchitis, unspecified; R06.02 Shortness of breath; I10 Essential (primary) hypertension; R91.1 Solitary pulmonary nodule; R07.89 Other chest pain; I65.29 Occlusion and stenosis of unspecified carotid artery; I70.1 Atherosclerosis of renal artery; I71.4 Abdominal aortic aneurysm, without rupture; I51.7 Cardiomegaly; G62.9 Polyneuropathy, unspecified; E78.5 Hyperlipidemia, unspecified; F41.8 Other specified anxiety disorders; M19.90 Unspecified osteoarthritis, unspecified site; M47.9 Spondylosis, unspecified; D50.0 Iron deficiency anemia secondary to blood loss (chronic); I25.10 Atherosclerotic heart disease of native coronary artery without angina pectoris; E87.6 Hypokalemia; F41.9 Anxiety disorder, unspecified; F17.200 Nicotine dependence, unspecified, uncomplicated; Z99.81 Dependence on supplemental oxygen; Z79.899 Other long term (current) drug therapy; Z98.890 Other specified postprocedural states
CPT/HCPCS: 36415; 80048; 80053; 82550; 82803; 84484; 85025; 87040; 87070; 87081; 93005; 93010; 94640; 96365; 96375; 99284

== ENCOUNTER 2017-03-31 17:19 | Inpatient (IN) ==
[2017-03-31 17:29] VITALS: BMI 18.8
--- NOTE | 2017-03-31 17:48 | ED.PDOC ---
General ED Provider: Dr. MAREN CHERY Chief Complaint: Shortness of Air Stated Complaint: Short of air; Time Seen by Physician: 17:46 Mode of Arrival: Wheelchair Information Source: Patient Primary Care Provider: SIDDHARTHA BRITO Nursing and Triage Documentation Reviewed and Agree: Yes Respiratory Complaint Exam - Shortness of Air Complaint/Exam Onset/Duration: Wednesday; saw Dr. Brito - got Decadron shot Symptoms Are: Worse Initial Severity: Moderate Current Severity: Moderate Character: Reports: Dyspnea at rest, Dyspnea on exertion Aggravating: Reports: None Alleviating: Reports: None Associated Signs and Symptoms: Reports: Cough Related History: Reports: Similar episode (In hospital early March; same SOA) Review of Systems - Review Of Systems Constitutional: Reports: Malaise, Weakness Respiratory: Reports: Cough, Short of air Cardiac: Reports: No symptoms GI: Reports: No symptoms All Other Systems: Reviewed and Negative Past Medical History - Past Medical History Previously Healthy: Yes Endocrine: Reports: Dyslipidemia Cardiovascular: Reports: CAD, Hypertension, Other (PAD) Respiratory: Reports: COPD Hematological: Reports: None Gastrointestinal: Reports: None Genitourinary: Reports: None Neuro/Psych: Reports: Anxiety, Depression Musculoskeletal: Reports: Arthritis, Back Pain, Joint Pain Cancer: Reports: None Last Menstrual Period: hysterectomy - Surgical History General Surgical History: Reports: Hysterectomy, Stent Placement - Family History Family History: Reports: Unknown - Social History Smoking Status: Current every day smoker, Heavy tobacco smoker Hx Substance Use: No Alcohol Screening: Occasionally Physical Exam - Physical Exam Appearance: Ill-appearing Ill-appearing: Moderate Eyes: ARIEL, EOMI ENT: Nose normal, Oropharynx normal Neck: Supple Respiratory: Breath sounds diminished, Wheezes (mild expiration) Cardiovascular: RRR, Pulses normal GI/: Soft, Nontender Musculoskeletal: Normal strength, ROM intact, No edema Skin: Warm, Dry Neurological: Sensation intact, Motor intact Psychiatric: Affect appropriate, Mood appropriate Interpretation - EKG Interpretation Time of EKG #1: 18:23 Rate: Normal Rhythm: Sinus Ectopy: PACs ST Segment: Normal Interpretation: No acute changes Physician Notification - Case Discussed Physician Notified: Dr Brito Time of Notification: 18:50 (Discussed admission) Critical Care Note - Critical Care Note Total Time (mins): 35 Course - Course Hematology/Chemistry: 03/31/17 18:07 12/13/17 18:07 Orders, Labs, Meds: Lab Review 03/31/17 03/31/17 03/31/17 17:53 18:07 18:07 WBC 13.98 H RBC 3.70 L Hgb 10.6 L Hct 32.7 L MCV 88.4 MCH 28.6 MCHC 32.4 RDW Coeff of Tr 17.2 H Plt Count 191 Immature Gran % (Auto) 0.9 Neut % (Auto) 76.9 Lymph % (Auto) 10.0 Mora % (Auto) 11.1 H Eos % (Auto) 1.0 Baso % (Auto) 0.1 Immature Gran # (Auto) 0.1 Neut # 10.7 H Lymph # 1.4 Mora # 1.6 Eos # 0.1 Baso # 0.0 Puncture Site Pending O2 Saturation 97.0 ABG pH 7.329 L ABG pCO2 64.7 H ABG pO2 96.0 ABG HCO3 34.0 H ABG Total CO2 36 H ABG Base Excess 8 H Miki Test Pending O2 Delivery Device Nc Oxygen Liter Flow 3.00 Sodium 137 Potassium 4.4 Chloride 96 L Carbon Dioxide 33 H Anion Gap 12.4 BUN 20 H Creatinine 0.80 Estimated GFR (MDRD) 71.00 BUN/Creatinine Ratio 25.00 Glucose 87 Calcium 9.0 Total Bilirubin 0.45 AST 15 ALT 16 Alkaline Phosphatase 53 Total Protein 5.8 Albumin 3.4 Globulin 2.4 Albumin/Globulin Ratio 1.42 Influenza A (Rapid) Influenza B (Rapid) 03/31/17 18:39 WBC RBC Hgb Hct MCV MCH MCHC RDW Coeff of Tr Plt Count Immature Gran % (Auto) Neut % (Auto) Lymph % (Auto) Mor[place] % (Auto) Eos % (Auto) Baso % (Auto) Immature Gran # (Auto) Neut # Lymph # Mora # Eos # Baso # Puncture Site O2 Saturation ABG pH ABG pCO2 ABG pO2 ABG HCO3 ABG Total CO2 ABG Base Excess Miki Test O2 Delivery Device Oxygen Liter Flow Sodium Potassium Chloride Carbon Dioxide Anion Gap BUN Creatinine Estimated GFR (MDRD) BUN/Creatinine Ratio Glucose Calcium Total Bilirubin AST ALT Alkaline Phosphatase Total Protein Albumin Globulin Albumin/Globulin Ratio Influenza A (Rapid) Negative Influenza B (Rapid) Negative Orders Category Date Time Status ADMIT PATIENT INPATIENT .TO [facility] (MONITORED BED) ADMISSION 03/31/17 18: 59 Active ABG DRAW REQUEST Stat CARDIO 03/31/17 17:55 Completed EKG-(ED ONLY) Stat CARDIO 03/31/17 17:54 Completed NEBULIZER TREATMENT Stat CARDIO 03/31/17 18:00 Completed OXYGEN Routine CARDIO 03/31/17 19:00 Ordered ACTIVITY .Complete BR CARE 03/31/17 18:59 Active INTAKE & OUTPUT Q8HR CARE 03/31/17 18:59 Active TELEMETRY MONITORING TELE CARE 03/31/17 19:02 Active VITAL SIGNS Q8HR CARE 03/31/17 18:59 Active REGULAR DIET DIETARY 03/31/17 Breakfast Ordered ABG Stat LAB 03/31/17 17:53 Results CBC W/ AUTO DIFF DAILY@0600 LAB 04/01/17 06:00 Ordered CBC W/ AUTO DIFF DAILY@0600 LAB 04/02/17 06:00 Ordered CBC W/ AUTO DIFF Stat LAB 03/31/17 18:07 Completed COMPREHENSIVE METABOLIC PANEL DAILY@0600 LAB 04/01/17 06:00 Ordered COMPREHENSIVE METABOLIC PANEL DAILY@0600 LAB 04/02/17 06:00 Ordered COMPREHENSIVE METABOLIC PANEL Stat LAB 03/31/17 18:07 Completed RAPID FLU A/B Stat LAB 03/31/17 18:39 Completed Ceftriaxone Sodium [Rocephin] 1 gm MEDS 03/31/17 19:00 Ordered 0.9 % Sodium Chloride [Sodium Chloride] 50 ml IV DAILY Enoxaparin Sodium [Lovenox] MEDS 03/31/17 19:00 Ordered 40 mg SUBCUT DAILY Ipratropium/Albuterol Neb [Duoneb] MEDS 03/31/17 18:00 Discontinued 1 vial NEB ONCE STA Sodium Chloride 0.9% [Sodium Chloride] 1,000 ml MEDS 03/31/17 17:57 Active IV 70 mls/hr Sodium Chloride 0.9% [Sodium Chloride] 1,000 ml MEDS 03/31/17 19:00 Ordered IV 75 mls/hr RESUSCITATION STATUS Routine OTHERS 03/31/17 18:59 Ordered CHEST, 2 VIEWS PA & LAT Stat RADS 03/31/17 17:54 Taken Medications Generic Name Dose Route Start Last Admin Trade Name Freq PRN Reason Stop Dose Admin Enoxaparin Sodium 40 mg 03/31/17 19:00 Lovenox SUBCUT DAILY AYAD Hydrocortisone Sodium Succinate 125 mg 03/31/17 19:30 Solu-Cortef 250 Mg IVP Q6HR AYAD Sodium Chloride 1,000 mls @ 70 mls/hr 03/31/17 17:57 Sodium Chloride IV 04/01/17 08:14 .[id number] STA Sodium Chloride 1,000 mls @ 75 mls/hr 03/31/17 19:00 Sodium Chloride IV .[id number] AYAD Ceftriaxone Sodium 1 gm/ 50 mls @ 75 mls/hr 03/31/17 19:00 Sodium Chloride IV DAILY AYAD Azithromycin 500 mg/ Sodium 250 mls @ 125 mls/hr 03/31/17 19:30 Chloride IV DAILY AYAD Levalbuterol HCl 1 vial 04/01/17 00:00 Xopenex 1.25 Mg NEB RTQ6H AYAD Discontinued Medications Generic Name Dose Route Start Last Admin Trade Name Freq PRN Reason Stop Dose Admin Albuterol/Ipratropium 1 vial 03/31/17 18:00 03/31/17 18:17 Duoneb NEB 03/31/17 18:01 1 vial ONCE STA Administration Vital Signs: Temp Pulse Resp BP Pulse Ox 03/31/17 17:20 99.2 F 101 H 24 168/74 H 98 Departure - Departure Time of Disposition: 18:56 Disposition: ADMITTED INPATIENT Discharge Problem: SOB (shortness of breath) Condition: Stable Pt referred to PMD for follow-up: Yes (Follow up with Dr. Brito on discharge) Allergies/Adverse Reactions: Allergies No Known Allergies Allergy (Verified 03/31/17 17:29) Home Medications: Ambulatory Orders Cilostazol [Pletal] 100 mg PO BIDAC 12/09/12 Cyanocobalamin (Vitamin B-12) [B-12] 500 mcg PO DAILY 12/09/12 Potassium Chloride [Micro-K Cap] 5 meq PO DAILYWM 12/09/12 Roflumilast [Daliresp] 500 mcg PO DAILY 03/29/15 Ferrous Gluconate 324 mg PO BID 06/17/15 Duloxetine HCl [Cymbalta] 60 mg PO DAILY 06/18/15 Rosuvastatin Calcium [Crestor] 20 mg PO BEDTIME 12/27/15 Arformoterol Tartrate [Brovana] 1 vial IH Q12H PRN 05/27/16 Aspirin 81 mg PO DAILY 05/27/16 Carvedilol [Coreg] 25 mg PO BIDWM 05/27/16 Cholecalciferol (Vitamin D3) [Vitamin D3] 400 unit PO DAILY 05/27/16 Escitalopram Oxalate [Lexapro] 10 mg PO DAILY 05/27/16 Triamterene/Hydrochlorothiazid [Dyazide] 1 cap PO DAILY 05/27/16 Pregabalin [Lyrica] 50 mg PO BID #60 capsule 06/01/16 Tiotropium Br/Olodaterol HCl [Stiolto Respimat Inhal Fortine] 2.5 mcg IH DAILY 07/03 Alprazolam [Xanax] 0.25 mg PO BID PRN #10 tablet 11/09/16 Clonidine HCl 0.1 mg PO BID PRN #30 tablet 11/09/16 Losartan Potassium [Cozaar] 50 mg PO DAILY #30 tablet 11/09/16 Hydralazine HCl 50 mg PO BID #01 tablet 12/10/16 Hydrocodone Bit/Acetaminophen [Lortab 10-500] 1 tab PO TID PRN 03/20/17 Prednisone 10 mg PO DIRECTED #32 tablet 03/23/17
[2017-03-31] MEDS ORDERED: SODIUM CHLORIDE 1,000 ML IV STA (17:57)
[2017-03-31] MEDS ORDERED: DUONEB NEB STA (18:00)
[2017-03-31] MEDS ORDERED: ROCEPHIN 1 GM in SODIUM CHLORIDE 50 ML IV SCH (19:00)
[2017-03-31] MEDS ORDERED: ZITHROMAX 500 MG in SODIUM CHLORIDE 250 ML IV SCH (19:30)
[2017-03-31] MEDS ORDERED: NON-FORMULARY MEDICATION (Hydrocodone Bit/Acetaminophen 1 TAB) PO PRN (20:06)
[2017-03-31] MEDS ORDERED: PREDNISONE PO SCH (20:30)
[2017-03-31] MEDS ORDERED: NON-FORMULARY MEDICATION (Ferrous Gluconate [Ferrous Gluconate] 324 MG) PO SCH (21:00)
[2017-03-31] MEDS ORDERED: ROCEPHIN ONE (21:23)
[2017-03-31] MEDS: SOLU-CORTEF 250 MG IVP SCH (21:33)
[2017-03-31] MEDS: APRESOLINE PO SCH (21:34)
[2017-03-31] MEDS: CRESTOR PO SCH (21:34)
[2017-03-31] MEDS: LYRICA PO SCH (21:34)
[2017-03-31] MEDS: LOVENOX SUBCUT SCH (21:35)
[2017-03-31] MEDS ORDERED: NORCO 10-325 ONE (21:44)
[2017-03-31] MEDS: XANAX PO PRN (21:45)
[2017-03-31] MEDS: SODIUM CHLORIDE 1,000 ML IV SCH (22:00)
[2017-03-31] MEDS: XOPENEX 1.25 MG NEB SCH (23:02)
[2017-03-31] MEDS ORDERED: XOPENEX 1.25 MG NEB ONE (23:02)
[2017-04-01] MEDS: SOLU-CORTEF 250 MG IVP SCH ×4 (00:50→17:56)
[2017-04-01] MEDS ORDERED: DUONEB NEB ONE (04:43)
[2017-04-01] MEDS: XOPENEX 1.25 MG NEB SCH ×4 (05:22→22:31)
[2017-04-01] MEDS: PLETAL PO SCH ×2 (05:49→17:56)
--- NOTE | 2017-04-01 07:36 | DI ---
EXAM: Chest two view, frontal and lateral views. HISTORY: Shortness of breath. COMPARISON: 03/20/2017. FINDINGS: The heart size is normal. Atherosclerotic calcifications are present. There is no pulmon marlin vascular congestion. The lungs are clear save for calcified granulomatous changes. No pleural e ffusion or pneumothorax is seen. No acute osseous abnormality identified. Stent present in the abdo shola aorta. IMPRESSION: No acute cardiopulmonary process.
[2017-04-01] MEDS ORDERED: MICRO-K CAP PO SCH (08:00)
[2017-04-01] MEDS ORDERED: NON-FORMULARY MEDICATION (Carvedilol [Coreg] 25 MG) PO SCH (08:00)
[2017-04-01] MEDS: LOVENOX SUBCUT SCH (08:35)
[2017-04-01] MEDS: KLOR-CON 8 MEQ PO SCH (08:36)
[2017-04-01] MEDS: DALIRESP PO SCH (08:36)
[2017-04-01] MEDS: FERROUS SULFATE PO SCH ×2 (08:36→20:36)
[2017-04-01] MEDS: LEXAPRO PO SCH (08:36)
[2017-04-01] MEDS: ASPIRIN CHEWABLE PO SCH (08:36)
[2017-04-01] MEDS: VITAMIN D PO SCH (08:37)
[2017-04-01] MEDS: COZAAR PO SCH (08:37)
[2017-04-01] MEDS: LYRICA PO SCH ×2 (08:37→20:35)
[2017-04-01] MEDS: CYMBALTA PO SCH (08:37)
[2017-04-01] MEDS: DYAZIDE PO SCH (08:38)
[2017-04-01] MEDS: COREG PO SCH ×2 (08:38→17:56)
[2017-04-01] MEDS: APRESOLINE PO SCH ×2 (08:38→20:38)
[2017-04-01] MEDS: NORCO 10-325 PO PRN ×3 (09:00→20:36)
[2017-04-01] MEDS ORDERED: NON-FORMULARY MEDICATION (Losartan Potassium 50 MG) PO SCH (09:00)
[2017-04-01] MEDS ORDERED: NON-FORMULARY MEDICATION (Duloxetine Hcl [Cymbalta] 60 MG) PO SCH (09:00)
[2017-04-01] MEDS ORDERED: NON-FORMULARY MEDICATION (Cholecalciferol (Vitamin D3) [Vitamin D3] 400 UNIT) PO SCH (09:00)
--- NOTE | 2017-04-01 09:38 | PCM.PROG ---
Attending Provider: ATTENDING PROVIDER: Dr. SIDDHARTHA BRITO This patient is seen with Rupal Perez, Nurse Practitioner. DATE OF SERVICE: 04/01/17 SUBJECTIVE: This 71 year old WHITE/ F was hospitalized 03/31/17. The patient is lying in bed, alert. Shortness of breath has improved since admission. The patient is still wheezing. Chest x-ray is normal. REVIEW OF SYSTEMS: CONSTITUTIONAL: No night sweats. No fatigue, malaise, lethargy. No fever or chills. HEENT: Eyes: No visual changes. No eye pain. No eye discharge. ENT: No runny nose. No epistaxis. No sinus pain. No odynophagia. No congestion. RESPIRATORY: Positive for shortness of breath. No cough, no congestion. No hemoptysis. CARDIOVASCULAR: No angina symptoms. No CHF symptoms. No atypical chest pain for CAD. No palpitations. No orthopnea.. GASTROINTESTINAL: No abdominal pain. No nausea or vomiting. No diarrhea or constipation. No hematemesis. No hematochezia. GENITOURINARY: No urgency. No frequency. No dysuria. No hematuria. No obstructive symptoms. No discharge. No pain. No significant abnormal bleeding. MUSCULOSKELETAL: No musculoskeletal pain; no joint swelling. NEUROLOGICAL: Awake, alert, oriented to time, place and person. No headache. No neck pain. No syncope. No seizures. No dizziness. PSYCHIATRIC: Not anxious. No depression. No suicidal thoughts. No homicidal thoughts. SKIN: No rash. No lesions. No wounds. ENDOCRINE: No unexplained weight loss. No weight gain. HEMATOLOGIC/LYMPHATIC: No anemia. No purpura. No petechiae. No prolonged or excessive bleeding. No palpable lymph nodes. PHYSICAL EXAMINATION: GENERAL: The patient is awake, alert and oriented, lying in bed in no distress. VITAL SIGNS: Temperature 97.0 F, Pulse 89, Respiratory Rate 20, BP 185/80, Pulse Ox 97% HEENT: Head normocephalic, atraumatic. Eyes: Extraocular muscles are intact. Pupils are equal, round and reactive to light and accommodation. Ears: No lesions. Nose appeared normal. Throat: No exudate or erythema. NECK: Supple. No JVD, no carotid bruit. No lymphadenopathy or thyromegaly. LUNGS: Bilateral expiratory wheeze. Percussion note normal. Chest symmetrical. HEART: S1, S2, no S3. No murmurs. No cyanosis or clubbing. No ascites. Pulses: Dorsalis pedis and posterior tibial pulses +1 to +2 both sides. ABDOMEN: Soft. Non-tender. Bowel sounds active. No CVA tenderness. No mass felt. EXTREMITIES: No edema. Full range of motion of all extremities, equal. NEUROLOGIC: No focal deficit. Cranial nerves II through XII are grossly intact. No headache, no double vision or headache. SKIN: Not dry. Intact. Turgor-normal. LYMPHATIC: No palpable lymph nodes/no lymphedema. MUSCULOSKELETAL: Normal joints with no swelling. Muscle tone is normal. LAB REVIEW: 04/01/17 04:30 04/01/17 04:30 04/01/17 04:30: Sodium 138, Potassium 4.2, Chloride 99, Carbon Dioxide 31, Anion Gap 12.2, BUN 17, Creatinine 0.75, Estimated GFR (MDRD) 76.00, BUN/ Creatinine Ratio 22.66, Glucose 113, Calcium 8.4, Total Bilirubin 0.21, AST 20, ALT 19, Alkaline Phosphatase 53, Total Protein 5.6 L, Albumin 3.0 L, Globulin 2.6, Albumin/Globulin Ratio 1.15 04/01/17 04:30: WBC 13.38 H, RBC 3.53 L, Hgb 10.1 L, Hct 31.3 L, MCV 88.7, MCH 28.6, MCHC 32.3, RDW Coeff of Tr 17.2 H, Plt Count 180, Immature Gran % (Auto) 1.0, Neut % (Auto) 91.2, Lymph % (Auto) 5.3 L, [place] % (Auto) 2.3, Eos % (Auto) 0.1, Baso % (Auto) 0.1, Immature Gran # (Auto) 0.1, Neut # 12.2 H, Lymph # 0.7, [place] # 0.3 L, Eos # 0.0, Baso # 0.0 ASSESSMENT: 1. Shortness of breath 2. Acute COPD exacerbation 3. Hypertension 4. Smoker PLAN: 1. Continue Xopenex 2. Continue IV steroids and nebs 3. Chest x-ray normal Plan and coordination of the patient's care discussed in the presence of Parks And Recreation Manager and nurse. CONDITION: Stable SCRIBED BY: KENISHA FRY, Patient Admitting Representative scribed while in presence of service performed by Dr. Brito/Rupal Perez APRN on 04/01/17 ([id number])
[2017-04-01] MEDS: NON-FORMULARY MEDICATION (Cyanocobalamin (Vitamin B-12) [B-12] 500 MCG) PO SCH (11:34)
[2017-04-01] MEDS: SODIUM CHLORIDE 1,000 ML IV SCH (13:57)
--- NOTE | 2017-04-01 14:02 | RS.PTINEVL ---
Subjective - Patient information Date of Evaluation: 04/01/17 Date of Arrival on Unit: 03/31/17 Admitted From:: Home Diagnosis: COPD exacerbation Usual Living Arrangement: With Spouse Home Environment: House, Stairs (few) Medical History: Hypertension, COPD, Arthritis Medical History Comments:: CAD, anxiety, depression, back pain LATEX ALLERGY?: No Surgical History: Hysterectomy Subjective Information/ Patient Comments:: pt states she had a fall recently striking face on night stand. pt states she had gotten weaker in last couple of weeks. pt states she comes to pulmonary rehab when she is able - Level of function Prior to this admission, the patient could do the following:: Independent Ambulation Abilities prior to this admission: assisted with ADL's if needed Current Level of Function: Partially Dependent Current Equipment Used at Home: walker, oxygen, nebulizer Interventions - Objective Patient Orientation: Person, Place, Time, Situation Current Interventions: IV's, Oxygen, Telemetry Range of Motion - ROM Right Upper Extremity AROM: WFL's Left Upper Extremity AROM: WFL's Right Lower Extremity AROM: WFL's Left Lower Extremity AROM: WFL's Muscle Strength - Muscle Strength Right Upper Extremity Strength: Mild Weakness (grossly 4-/5) Left Upper Extremity Strength: Mild Weakness (grossly 4-/5) Right Lower Extremity Strength: Mild Weakness (hip flex 3+/5, knee flex/ext 4-/5 , ankle DF/PF 4-/5) Left Lower Extremity Strength: Mild Weakness (hip flex 3+/5, knee flex/ext 4-/5 , ankle DF/PF 4-/5) Sensation - Sensation Right Upper Extremity Sensation: Intact/Normal Left Upper Extremity Sensation: Intact/Normal Right Lower Extremity Sensation: Impaired Left Lower Extremity Sensation: Impaired (reports numbness and tingling BLE) Palpation Palpation Findings: None/Normal Balance - Sitting Balance and Reactions Static Sitting Balance: Good Dynamic Sitting Balance: Good - Standing Balance and Reactions Static Standing Balance: Fair Dynamic Standing Balance: Poor Standing Equilibrium Reactions: Delayed Left, Delayed Right Standing Protective Reactions: Delayed Left, Delayed Right - Comments Balance Assessment Comments: Tinetti score: 20/28 Functional Mobility - Bed Mobility Rolling R/L: Independent Scooting: Independent Supine to Sit: Supervision - Transfers Sit to Stand: CGA Stand to Sit: CGA - Safety Awareness Safety Awareness: Good Ambulation - Ambulation Assistive Device Used: Gait belt Orthotic/Prosthetic Device: No Distance: 100ft Assistance needed with Ambulation: CGA Quality of Ambulation: amb with O2, feel pt would benefit from use of rwx or cane to assist with safety with amb. Gait Deviations: Forward posture, Short stride, Deviates from path Ambulation Comments: pt with increased lat sway and occasional scissoring with decreased step length. pt demonstrates PLB during amb. O2 sat 96 after amb. Factors Affecting Ambulation: Decreased Balance, Breathing/O2 Saturation, Weakness, Limited Endurance, Limited Sensation Treatment time - Time with patient Total treatment time: 25 Patient Education - Education Patient Education: Home Safety, Activity Modification, Education of Plan of Care Teaching Recipient: Patient Teaching Methods: Discussion (Discussion with patient regarding safety with amb and POC) Assessment - Assessment Problem List:: Decreased level of function, Requires training/education, Decreased safety/Risk of falls, Weakness, Pain limits previous level of function Rehab Potential: Good Further Therapy Indicated?: Yes Short Term Goals GOAL #1: pt transfer sup to/from sit to/from stand SBA Goal to be met by: 04/02/17 GOAL #2: pt amb with/without AAD 125ft with O2 with CGA/SBA Goal to be met by: 04/03/17 Prison Goals GOAL #1: pt strength BLE 4 to 4+/5 and independent with HEP Goal to be met by: 04/06/17 GOAL #2: pt amb functional distances with/without AD independently with no LOB Goal to be met by: 04/06/17 GOAL #3: pt transfer sup to/from sit to/from stand independently Goal to be met by: 04/06/17 Plan Plan of Care: Therapeutic EX, Neuromuscular Re-Educ, Therapeutic Activity, Self- Care/Home Management Other:: gait training Frequency of Treatment: 1-2 X day, as tolerated Duration of Treatment: 5 days Anticipated Discharge Destination: Home Has the Physician been added for Co-signature?: Yes
[2017-04-01] MEDS ORDERED: ALBUTEROL 0.083% NEB NEB STA (15:34)
[2017-04-01] MEDS: XANAX PO PRN ×2 (15:41→20:36)
[2017-04-01] MEDS: CATAPRES PO PRN (19:13)
[2017-04-01] MEDS: ROCEPHIN 1 GM in SODIUM CHLORIDE 50 ML IV SCH (20:35)
[2017-04-01] MEDS: ZITHROMAX PO SCH (20:36)
[2017-04-01] MEDS: CRESTOR PO SCH (20:36)
[2017-04-01] MEDS ORDERED: ZITHROMAX 500 MG in SODIUM CHLORIDE 250 ML IV SCH (21:00)
[2017-04-02] MEDS: SODIUM CHLORIDE 1,000 ML IV SCH (03:47)
[2017-04-02] MEDS: XOPENEX 1.25 MG NEB SCH ×4 (05:29→22:44)
[2017-04-02] MEDS: PLETAL PO SCH ×2 (05:58→16:42)
[2017-04-02] MEDS: SOLU-CORTEF 250 MG IVP SCH ×5 (05:59→23:13)
[2017-04-02] MEDS ORDERED: DIFLUCAN PO STA (07:48)
[2017-04-02] MEDS: COZAAR PO SCH (08:35)
[2017-04-02] MEDS: LYRICA PO SCH ×2 (08:35→20:58)
[2017-04-02] MEDS: KLOR-CON 8 MEQ PO SCH (08:35)
[2017-04-02] MEDS: VITAMIN D PO SCH (08:35)
[2017-04-02] MEDS: ASPIRIN CHEWABLE PO SCH (08:35)
[2017-04-02] MEDS: DYAZIDE PO SCH (08:35)
[2017-04-02] MEDS: COREG PO SCH ×2 (08:36→16:42)
[2017-04-02] MEDS: APRESOLINE PO SCH ×2 (08:36→20:58)
[2017-04-02] MEDS: DALIRESP PO SCH (08:36)
[2017-04-02] MEDS: LEXAPRO PO SCH (08:36)
[2017-04-02] MEDS: FERROUS SULFATE PO SCH ×2 (08:36→20:58)
[2017-04-02] MEDS: CYMBALTA PO SCH (08:36)
[2017-04-02] MEDS: NON-FORMULARY MEDICATION (Cyanocobalamin (Vitamin B-12) [B-12] 500 MCG) PO SCH (08:37)
[2017-04-02] MEDS: LOVENOX SUBCUT SCH (08:37)
[2017-04-02] MEDS: XANAX PO SCH ×2 (08:41→20:58)
--- NOTE | 2017-04-02 09:16 | PCM.PROG ---
Attending Provider: ATTENDING PROVIDER: Dr. SIDDHARTHA BRITO This patient is seen with Rupal Perez, Nurse Practitioner. DATE OF SERVICE: 04/02/17 SUBJECTIVE: This 71 year old WHITE/ F was hospitalized 03/31/17. The patient is lying in bed, alert. Cough is not much better. The patient is still short of breath and is anxious. REVIEW OF SYSTEMS: CONSTITUTIONAL: Weakness. No night sweats. No fever or chills. HEENT: Eyes: No visual changes. No eye pain. No eye discharge. ENT: No runny nose. No epistaxis. No sinus pain. No odynophagia. No congestion. RESPIRATORY: Positive for cough. Positive for shortness of breath. No hemoptysis. CARDIOVASCULAR: No angina symptoms. No CHF symptoms. No atypical chest pain for CAD. No palpitations. No orthopnea.. GASTROINTESTINAL: No abdominal pain. No nausea or vomiting. No diarrhea or constipation. No hematemesis. No hematochezia. GENITOURINARY: No urgency. No frequency. No dysuria. No hematuria. No obstructive symptoms. No discharge. No pain. No significant abnormal bleeding. MUSCULOSKELETAL: No musculoskeletal pain; no joint swelling. NEUROLOGICAL: Awake, alert, oriented to time, place and person. No headache. No neck pain. No syncope. No seizures. No dizziness. PSYCHIATRIC: Anxious. No depression. No suicidal thoughts. No homicidal thoughts. SKIN: No rash. No lesions. No wounds. ENDOCRINE: No unexplained weight loss. No weight gain. HEMATOLOGIC/LYMPHATIC: No anemia. No purpura. No petechiae. No prolonged or excessive bleeding. No palpable lymph nodes. PHYSICAL EXAMINATION: GENERAL: The patient is awake, alert and oriented, lying in bed in no distress. VITAL SIGNS: Temperature 97.5 F, Pulse 90, Respiratory Rate 16, BP 155/60, Pulse Ox 98% HEENT: Head normocephalic, atraumatic. Eyes: Extraocular muscles are intact. Pupils are equal, round and reactive to light and accommodation. Ears: No lesions. Nose appeared normal. Throat: No exudate or erythema. NECK: Supple. No JVD, no carotid bruit. No lymphadenopathy or thyromegaly. LUNGS: Severely diminished breath sounds bilaterally with bilateral expiratory wheeze. Percussion note normal. Chest symmetrical. HEART: S1, S2, no S3. No murmurs. No cyanosis or clubbing. No ascites. Pulses: Dorsalis pedis and posterior tibial pulses +1 to +2 both sides. ABDOMEN: Soft. Non-tender. Bowel sounds active. No CVA tenderness. No mass felt. EXTREMITIES: No edema. Full range of motion of all extremities, equal. NEUROLOGIC: No focal deficit. Cranial nerves II through XII are grossly intact. No headache, no double vision or headache. SKIN: Not dry. Intact. Turgor-normal. LYMPHATIC: No palpable lymph nodes/no lymphedema. MUSCULOSKELETAL: Normal joints with no swelling. Muscle tone is normal. LAB REVIEW: 04/02/17 04:25 04/02/17 04:25 04/02/17 04:25: Sodium 139, Potassium 3.7, Chloride 103, Carbon Dioxide 29, Anion Gap 10.7, BUN 19 H, Creatinine 0.82, Estimated GFR (MDRD) 69.00, BUN/ Creatinine Ratio 23.17, Glucose 127 H, Calcium 8.1 L, Total Bilirubin 0.19, AST 14 L, ALT 17, Alkaline Phosphatase 42 L, Total Protein 5.3 L, Albumin 2.9 L, Globulin 2.4, Albumin/Globulin Ratio 1.21 04/02/17 04:25: WBC 10.98 H, RBC 3.06 L, Hgb 8.7 L, Hct 26.8 L, MCV 87.6, MCH 28.4, MCHC 32.5, RDW Coeff of Tr 17.0 H, Plt Count 164, Immature Gran % (Auto) 1.7, Neut % (Auto) 87.3, Lymph % (Auto) 5.6 L, [place] % (Auto) 5.3, Eos % (Auto) 0.0, Baso % (Auto) 0.1, Immature Gran # (Auto) 0.2, Neut # 9.6 H, Lymph # 0.6, [place] # 0.6, Eos # 0.0, Baso # 0.0 ASSESSMENT: 1. Shortness of breath 2. Acute COPD exacerbation 3. Hypertension 4. Smoker 5. Oral Candidiasis due to aggressive steroid therapy PLAN: 1. D/C IV fluids 2. Diflucan 150 mg p.o. times one today Plan and coordination of the patient's care discussed in the presence of Food Safety Field Specialist and nurse. CONDITION: Stable SCRIBED BY: KENISHA FRY, Corporate Strategy Analyst scribed while in presence of service performed by Dr. Brito/Rupal Perez APRN on 04/02/17 ([id number])
[2017-04-02] MEDS: CATAPRES PO PRN ×2 (10:55→22:47)
[2017-04-02] MEDS: NORCO 10-325 PO PRN ×2 (10:55→20:58)
--- NOTE | 2017-04-02 11:33 | HP ---
DATE OF SERVICE: 04/01/17 (ADMITTED 03/31/17) HISTORY OF PRESENT ILLNESS: 71-year-old white female with history of severe COPD and dependent on oxygen, presented to the emergency room complaining of shortness of breath. She had recently been hospitalized with acute COPD exacerbation. She just received 4 mg of Decadron IM on Wednesday in our office. PAST MEDICAL HISTORY: Coronary artery disease Hypertension History of anemia History of hypokalemia Severe COPD, oxygen dependent Anxiety Depression Chronic back pain Osteoarthritis Dyslipidemia Smoker PAST SURGICAL HISTORY: Coronary artery disease with stent placement Status post hysterectomy REVIEW OF SYSTEMS: CONSTITUTIONAL: Positive for malaise and weakness. No night sweats. No fever or chills. HEENT: Eyes: No visual changes. No eye pain. No eye discharge. ENT: No runny nose. No epistaxis. No sinus pain. No sore throat. No odynophagia. No ear pain. No congestion. RESPIRATORY: Positive for shortness of breath and coughing. No congestion. No hemoptysis. CARDIOVASCULAR: No angina symptoms. No CHF symptoms. No atypical chest pain for CAD. No palpitations. No orthopnea. GASTROINTESTINAL: No abdominal pain. No nausea or vomiting. No diarrhea or constipation. No hematemesis. No hematochezia. GENITOURINARY: No urgency. No frequency. No dysuria. No hematuria. No obstructive symptoms. No discharge. No pain. No significant abnormal bleeding. MUSCULOSKELETAL: Positive for weakness. No joint swelling or redness. NEUROLOGICAL: The patient is anxious. No confusion or dizziness. No headache. No neck pain. No syncope. No seizures. PSYCHIATRIC: Not anxious. No depression. No suicidal thoughts. No homicidal thoughts. SKIN: No rash. No lesions. No wounds. ENDOCRINE: No unexplained weight loss. No weight gain. HEMATOLOGIC/LYMPHATIC: No anemia. No purpura. No petechiae. No prolonged or excessive bleeding. No palpable lymph nodes. PERSONAL/FAMILY/SOCIAL HISTORY: Family history is not pertinent. Social History: The patient is a heavy every day smoker. She has smoked for the past 30 to 40 years. She currently is and lives with her . She denies any alcohol or ilicit drug use. MEDICATIONS: Pletal 100 mg b.i.d. B12 500 mcg daily Potassium Chloride 5 mEq daily Daliresp 500 mcg daily Ferrous Sulfate 324 b.i.d. Cymbalta 60 mg daily Crestor 20 mg daily Brovana b.i.d. p.r.n. Aspirin 81 mg daily Coreg 25 mg b.i.d. Lexapro 10 mg daily Dyazide one cap daily Lyrica 50 mg b.i.d. Stealto 2.5 mcg daily Xanax 0.25 mg b.i.d. p.r.n. Clonidine 0.1 mg p.o. b.i.d. p.r.n. Cozaar 50 mg daily Hydralazine 50 mg b.i.d. [place] 10/500 p.o. t.i.d. p.r.n. ALLERGIES: NKDA PHYSICAL EXAMINATION: VITAL SIGNS: Temperature 99.2, heart rate 101, respirations 24, BP 168/74, pulse ox 98% on 3L. HEENT: Head normocephalic, atraumatic. Eyes: Extraocular muscles are intact. Pupils are equal, round and reactive to light and accommodation. Ears: Tympanic membranes within normal limits. No lesions. Nose appeared normal. Throat: No exudate or erythema. NECK: Supple. No JVD, no carotid bruit. No lymphadenopathy or thyromegaly. LUNGS: Severely diminished breath sounds bilaterally with bilateral inspiratory and expiratory wheeze. Percussion note normal. Chest symmetrical. HEART: Regular rate and rhythm. Sinus tachycardia. S1, S2, no S3. No murmur, clicks or rubs. No cyanosis or clubbing. No ascites. Pulses: Dorsalis pedis and posterior tibial pulses +1 to +2 both sides. ABDOMEN: Soft. Nontender. Bowel sounds active times four quadrants. No CVA tenderness. No mass felt. EXTREMITIES: No clubbing, no cyanosis. No joint swelling. No redness, no edema. Full range of motion of all extremities, equal. NEUROLOGIC: Cranial nerves 2-12 are intact. No focal deficit. Cranial nerves II through XII are grossly intact. No headache, no double vision or headache. SKIN: Intact. She has bruising to her chin from fall. LYMPHATIC: No palpable lymph nodes/no lymphedema. MUSCULOSKELETAL: Normal joints with no swelling. Muscle tone is normal. LABS: White count 13.98, hemoglobin 10.6, hematocrit 32.7, platelets 191. Sodium 137, potassium 4.4, chloride 96, carbon dioxide 33, BUN 20, creatinine 0.80, glucose 87, calcium 9.0, total bili 0.45, AST 15, ALT 16, alkaline phosphatase 53, total protein 5.8. ABGs on 3L/NC 02 sat 97, pH 7.329, pc02 64.7, p02 96, bicarb 34.0, total c02 36, base excess of 8. Rapid flu A and B are both negative. Chest x-ray shows no acute cardiopulmonary process. Normal heart size. ASSESSMENT: 1. ACUTE COPD EXACERBATION 2. SHORTNESS OF BREATH 3. ACUTE RESPIRATORY FAILURE 4. GENERALIZED WEAKNESS PLAN: 1. Admit to the floor 2. Routine telemetry orders 3. CBC, CMP daily 4. Regular diet 5. Oxygen as needed 6. Xopenex neb treatments q.6hr scheduled 7. Continue home medications 8. Lovenox 40 mg subQ daily 9. Rocephin 1 gm IV daily 10. Zithromax 500 mg IV daily times three days 11. Solu-Cortef 125 mg IV q.6hr scheduled 12. IV fluids D5 1/2 NS at 75 cc/hr 13. Sputum for culture and sensitivity 14. Blood cultures times two 15. Chest x-ray TIME SPENT: More than 70 minutes. MTDD
[2017-04-02] MEDS: ROCEPHIN 1 GM in SODIUM CHLORIDE 50 ML IV SCH (20:57)
[2017-04-02] MEDS: CRESTOR PO SCH (20:58)
[2017-04-02] MEDS: ZITHROMAX PO SCH (20:58)
[2017-04-03] MEDS: XOPENEX 1.25 MG NEB SCH ×4 (05:00→22:45)
[2017-04-03] MEDS: PLETAL PO SCH ×2 (05:49→17:23)
[2017-04-03] MEDS: SOLU-CORTEF 250 MG IVP SCH ×3 (05:49→17:24)
[2017-04-03] MEDS: DYAZIDE PO SCH (09:31)
[2017-04-03] MEDS: FERROUS SULFATE PO SCH ×2 (09:31→22:04)
[2017-04-03] MEDS: VITAMIN D PO SCH (09:31)
[2017-04-03] MEDS: APRESOLINE PO SCH ×2 (09:32→22:05)
[2017-04-03] MEDS: COREG PO SCH ×2 (09:32→17:23)
[2017-04-03] MEDS: LEXAPRO PO SCH (09:32)
[2017-04-03] MEDS: KLOR-CON 8 MEQ PO SCH (09:32)
[2017-04-03] MEDS: XANAX PO SCH ×2 (09:32→22:05)
[2017-04-03] MEDS: CYMBALTA PO SCH (09:32)
[2017-04-03] MEDS: DALIRESP PO SCH (09:32)
[2017-04-03] MEDS: COZAAR PO SCH (09:32)
[2017-04-03] MEDS: LYRICA PO SCH ×2 (09:32→22:04)
[2017-04-03] MEDS: ASPIRIN CHEWABLE PO SCH (09:33)
[2017-04-03] MEDS: LOVENOX SUBCUT SCH (09:33)
[2017-04-03] MEDS: NON-FORMULARY MEDICATION (Cyanocobalamin (Vitamin B-12) [B-12] 500 MCG) PO SCH (09:36)
[2017-04-03] MEDS: CATAPRES PO PRN (09:45)
[2017-04-03] MEDS ORDERED: MORPHINE 4 MG/ML VIAL IVP STA (11:41)
[2017-04-03] MEDS ORDERED: XOPENEX 1.25 MG NEB STA (11:43)
[2017-04-03] MEDS ORDERED: XANAX PO STA (11:43)
[2017-04-03] MEDS ORDERED: XOPENEX 1.25 MG NEB ONE (11:47)
[2017-04-03] MEDS ORDERED: MORPHINE 2 MG/ML SYRINGE ONE (11:53)
[2017-04-03] MEDS ORDERED: MORPHINE 4 MG/ML VIAL ONE (11:56)
[2017-04-03] MEDS ORDERED: ALBUTEROL 0.083% NEB NEB STA (12:02)
[2017-04-03] MEDS: TORADOL IVP PRN (12:39)
[2017-04-03] MEDS: PROTONIX IV IVP SCH (16:28)
[2017-04-03] MEDS: NORCO 10-325 PO PRN ×2 (17:22→22:04)
[2017-04-03] MEDS: CARAFATE PO SCH ×2 (17:23→22:44)
[2017-04-03] MEDS ORDERED: NORVASC PO STA (18:06)
[2017-04-03] MEDS: VASOTEC IV IVP PRN (18:15)
[2017-04-03] MEDS ORDERED: CATAPRES PO SCH (21:00)
[2017-04-03] MEDS ORDERED: CARAFATE ONE (22:01)
[2017-04-03] MEDS: CRESTOR PO SCH (22:04)
[2017-04-03] MEDS: CATAPRES PO SCH (22:05)
[2017-04-03] MEDS: ROCEPHIN 1 GM in SODIUM CHLORIDE 50 ML IV SCH (22:06)
[2017-04-04] MEDS: SOLU-CORTEF 250 MG IVP SCH ×5 (01:31→23:38)
[2017-04-04] MEDS: XOPENEX 1.25 MG NEB SCH ×4 (04:38→22:40)
[2017-04-04] MEDS: CARAFATE PO SCH ×4 (05:56→20:30)
[2017-04-04] MEDS: PLETAL PO SCH ×2 (05:56→17:17)
[2017-04-04] MEDS: ASPIRIN CHEWABLE PO SCH (09:03)
[2017-04-04] MEDS: APRESOLINE PO SCH ×2 (09:03→20:30)
[2017-04-04] MEDS: KLOR-CON 8 MEQ PO SCH (09:03)
[2017-04-04] MEDS: LEXAPRO PO SCH (09:03)
[2017-04-04] MEDS: DYAZIDE PO SCH (09:03)
[2017-04-04] MEDS: DALIRESP PO SCH (09:03)
[2017-04-04] MEDS: CYMBALTA PO SCH (09:04)
[2017-04-04] MEDS: COREG PO SCH ×2 (09:05→17:18)
[2017-04-04] MEDS: LOVENOX SUBCUT SCH (09:05)
[2017-04-04] MEDS: FERROUS SULFATE PO SCH ×2 (09:05→20:29)
[2017-04-04] MEDS: COZAAR PO SCH (09:05)
[2017-04-04] MEDS: VITAMIN D PO SCH (09:05)
[2017-04-04] MEDS: CATAPRES PO SCH ×2 (09:07→20:29)
[2017-04-04] MEDS: PROTONIX IV IVP SCH (09:25)
[2017-04-04] MEDS: LYRICA PO SCH ×2 (11:40→20:29)
[2017-04-04] MEDS: XANAX PO SCH ×2 (11:41→20:29)
[2017-04-04] MEDS: NON-FORMULARY MEDICATION (Cyanocobalamin (Vitamin B-12) [B-12] 500 MCG) PO SCH (11:44)
[2017-04-04] MEDS: OMNICEF PO SCH ×2 (17:24→20:30)
[2017-04-04] MEDS: VASOTEC IV IVP PRN (18:11)
[2017-04-04] MEDS: TORADOL IVP PRN (18:25)
[2017-04-04] MEDS ORDERED: DUONEB NEB STA (20:17)
[2017-04-04] MEDS ORDERED: DUONEB NEB ONE (20:25)
[2017-04-04] MEDS: NORCO 10-325 PO PRN (20:29)
[2017-04-04] MEDS: CRESTOR PO SCH (20:31)
[2017-04-05] MEDS: XOPENEX 1.25 MG NEB SCH ×4 (05:01→23:00)
[2017-04-05] MEDS: SOLU-CORTEF 250 MG IVP SCH ×4 (05:49→23:51)
[2017-04-05] MEDS: VASOTEC IV IVP PRN ×2 (05:50→18:01)
[2017-04-05] MEDS: PLETAL PO SCH ×2 (05:51→17:34)
[2017-04-05] MEDS: CARAFATE PO SCH ×4 (05:51→20:47)
[2017-04-05] MEDS: ASPIRIN CHEWABLE PO SCH (07:46)
[2017-04-05] MEDS: NORCO 10-325 PO PRN ×2 (07:47→08:36)
[2017-04-05] MEDS: COREG PO SCH ×2 (07:48→17:33)
[2017-04-05] MEDS: KLOR-CON 8 MEQ PO SCH (07:49)
--- NOTE | 2017-04-05 08:26 | PN ---
DATE OF SERVICE: 04/01/17 SUBJECTIVE: 71 year old white female hospitalized with acute bronchitis and severe chronic lung disease. The patient's problem is that she has continued to smoke and has severe chronic lung disease besides that she has arthrosclerosis generalized and depression. The patient's blood pressure is somewhat elevated. Cardiovascular status is stable. REVIEW OF SYSTEMS: CONSTITUTIONAL: No night sweats. No fever or chills. Weakness and fatigue. HEENT: Eyes: No visual changes. No eye pain. No eye discharge. ENT: No runny nose. No epistaxis. No sinus pain. No sore throat. No odynophagia. No congestion. RESPIRATORY: Mild cough, no congestion. No hemoptysis. No shortness of breath. CARDIOVASCULAR: No angina symptoms. No CHF symptoms. No atypical chest pain for CAD. No palpitations. No orthopnea. GASTROINTESTINAL: No abdominal pain. No nausea or vomiting. No diarrhea or constipation. No hematemesis. No hematochezia. GENITOURINARY: No urgency. No frequency. No dysuria. No hematuria. No obstructive symptoms. No discharge. No pain. No significant abnormal bleeding. MUSCULOSKELETAL: No musculoskeletal pain; no joint swelling. NEUROLOGICAL: No headache. No neck pain. No syncope. No seizures. No dizziness. PSYCHIATRIC: Not anxious. No depression. No suicidal thoughts. No homicidal thoughts. SKIN: No rash. No lesions. No wounds. ENDOCRINE: No unexplained weight loss. No weight gain. HEMATOLOGIC/LYMPHATIC: No anemia. No purpura. No petechiae. No prolonged or excessive bleeding. No palpable lymph nodes. ASSESSMENT: 1. Bronchitis, symptoms improving. PLAN: 1. Continue steroids, antibiotics, NEBS treatment 2. Side effect of steroids including avascular necrosis of the femoral bone discussed 3. Counseling for smoking done The patient was seen and examined with Nurse Practitioner. TIME SPENT: More than 30 minutes. Plan and coordination of the patient's care discussed in the presence of nurse. KEVIN
[2017-04-05] MEDS: CATAPRES PO SCH ×2 (08:34→20:46)
[2017-04-05] MEDS: FERROUS SULFATE PO SCH ×2 (08:34→20:47)
[2017-04-05] MEDS: XANAX PO SCH ×2 (08:34→20:46)
[2017-04-05] MEDS: COZAAR PO SCH ×2 (08:35→20:47)
[2017-04-05] MEDS: OMNICEF PO SCH ×2 (08:36→20:47)
[2017-04-05] MEDS: NON-FORMULARY MEDICATION (Cyanocobalamin (Vitamin B-12) [B-12] 500 MCG) PO SCH (08:36)
[2017-04-05] MEDS: LEXAPRO PO SCH (08:36)
[2017-04-05] MEDS: APRESOLINE PO SCH ×2 (08:36→20:46)
[2017-04-05] MEDS: CYMBALTA PO SCH (08:36)
[2017-04-05] MEDS: DALIRESP PO SCH (08:37)
[2017-04-05] MEDS: LOVENOX SUBCUT SCH (08:37)
[2017-04-05] MEDS: LYRICA PO SCH ×2 (08:37→20:46)
[2017-04-05] MEDS: VITAMIN D PO SCH (08:37)
[2017-04-05] MEDS: DYAZIDE PO SCH (08:37)
[2017-04-05] MEDS: PROTONIX IV IVP SCH (08:38)
--- NOTE | 2017-04-05 09:54 | PN ---
DATE OF SERVICE: 04/02/17 SUBJECTIVE: The patient was hospitalized with acute bronchitis/pneumonitis. The patient's condition steadily improved. She is on steroids, NEBS and antibiotics. PHYSICAL EXAMINATION: HEENT: Head normocephalic, atraumatic. Eyes: Extraocular muscles are intact. Pupils are equal, round and reactive to light and accommodation. Ears: No lesions. Nose appeared normal. Throat: No exudate or erythema. NECK: Supple. No JVD, no carotid bruit. No lymphadenopathy or thyromegaly. LUNGS: Decreased breath sounds but clear to auscultation. Percussion note normal. Chest symmetrical. HEART: S1, S2, no S3. No murmurs. No cyanosis or clubbing. No ascites. Pulses: Dorsalis pedis and posterior tibial pulses +1 to +2 both sides. ABDOMEN: Soft. Nontender. Bowel sounds active. No CVA tenderness. No mass felt. EXTREMITIES: No edema. Full range of motion of all extremities, equal. NEUROLOGIC: No focal deficit. Cranial nerves II through XII are grossly intact. No headache, no double vision or headache. SKIN: Not dry. Intact. Turgor - normal. LYMPHATIC: No palpable lymph nodes/no lymphedema. MUSCULOSKELETAL: Normal joints with no swelling. Muscle tone is normal. CONDITION: Stable The patient was seen and examined with Nurse Practitioner. PLAN: 1. Counseling for smoking done. PROGNOSIS: Poor, she is somewhat forgetful likely she has vascular dementia, has peripheral arterial disease. TIME SPENT: More than 30 minutes. Plan and coordination of the patient's care discussed in the presence of nurse. KEVIN
--- NOTE | 2017-04-05 10:25 | DI ---
EXAM: CHEST FRONTAL VIEW HISTORY: Cough and shortness of breath. COMPARISON: 03/31/2017 FINDINGS: Heart size remains within normal limits. Moderate to severe atherosclerotic disease. Mil d hyperinflation. No acute infiltrates are seen. No vascular congestion. There is no consolidation, visible pleural fluid or pneumothorax. Bones reveal no acute fracture. IMPRESSION: No acute cardiopulmonary process.
--- NOTE | 2017-04-05 10:47 | PCM.PROG ---
Attending Provider: ATTENDING PROVIDER: Dr. SIDDHARTHA BRITO This patient is seen with Rupal Perez, Nurse Practitioner. DATE OF SERVICE: 04/05/17 SUBJECTIVE: This 71 year old WHITE/ F was hospitalized 03/31/17. The patient is lying in bed, alert. She is still short of breath. Blood pressure has been consistently elevated. REVIEW OF SYSTEMS: CONSTITUTIONAL: No night sweats. No fatigue, malaise, lethargy. No fever or chills. HEENT: Eyes: No visual changes. No eye pain. No eye discharge. ENT: No runny nose. No epistaxis. No sinus pain. No odynophagia. No congestion. RESPIRATORY: Positive for shortness of breath. No cough, no congestion. No hemoptysis. CARDIOVASCULAR: No angina symptoms. No CHF symptoms. No atypical chest pain for CAD. No palpitations. No orthopnea.. GASTROINTESTINAL: No abdominal pain. No nausea or vomiting. No diarrhea or constipation. No hematemesis. No hematochezia. GENITOURINARY: No urgency. No frequency. No dysuria. No hematuria. No obstructive symptoms. No discharge. No pain. No significant abnormal bleeding. MUSCULOSKELETAL: No musculoskeletal pain; no joint swelling. NEUROLOGICAL: Awake, alert, oriented to time, place and person. No headache. No neck pain. No syncope. No seizures. No dizziness. PSYCHIATRIC: Not anxious. No depression. No suicidal thoughts. No homicidal thoughts. SKIN: No rash. No lesions. No wounds. ENDOCRINE: No unexplained weight loss. No weight gain. HEMATOLOGIC/LYMPHATIC: No anemia. No purpura. No petechiae. No prolonged or excessive bleeding. No palpable lymph nodes. PHYSICAL EXAMINATION: GENERAL: The patient is awake, alert and oriented, lying in bed in no distress. VITAL SIGNS: Temperature 97.6 F, Pulse 96, Respiratory Rate 16, BP 182/78, Pulse Ox 95% HEENT: Head normocephalic, atraumatic. Eyes: Extraocular muscles are intact. Pupils are equal, round and reactive to light and accommodation. Ears: No lesions. Nose appeared normal. Throat: No exudate or erythema. NECK: Supple. No JVD, no carotid bruit. No lymphadenopathy or thyromegaly. LUNGS: Bilateral inspiratory and expiratory wheeze. Percussion note normal. Chest symmetrical. HEART: S1, S2, no S3. No murmurs. No cyanosis or clubbing. No ascites. Pulses: Dorsalis pedis and posterior tibial pulses +1 to +2 both sides. ABDOMEN: Soft. Non-tender. Bowel sounds active. No CVA tenderness. No mass felt. EXTREMITIES: No edema. Full range of motion of all extremities, equal. NEUROLOGIC: No focal deficit. Cranial nerves II through XII are grossly intact. No headache, no double vision or headache. SKIN: Not dry. Intact. Turgor-normal. LYMPHATIC: No palpable lymph nodes/no lymphedema. MUSCULOSKELETAL: Normal joints with no swelling. Muscle tone is normal. LAB REVIEW: 04/04/17 13:13 04/05/17 05:00 04/05/17 05:00: Sodium 139, Potassium 3.8, Chloride 100, Carbon Dioxide 31, Anion Gap 11.8, BUN 26 H, Creatinine 1.04, Estimated GFR (MDRD) 52.00, BUN/ Creatinine Ratio 25.00, Glucose 143 H, Calcium 9.1, Total Bilirubin 0.28, AST 14 L, ALT 20, Alkaline Phosphatase 46 L, Total Protein 5.7 L, Albumin 3.1 L, Globulin 2.6, Albumin/Globulin Ratio 1.19 04/04/17 13:13: WBC 10.65 H, RBC 3.50 L, Hgb 10.2 L, Hct 31.0 L, MCV 88.6, MCH 29.1, MCHC 32.9, RDW Coeff of Tr 17.1 H, Plt Count 122 L, Immature Gran % (Auto ) 1.7, Neut % (Auto) 85.9, Lymph % (Auto) 6.9 L, Gray % (Auto) 5.4, Eos % (Auto ) 0.0, Baso % (Auto) 0.1, Immature Gran # (Auto) 0.2, Neut # 9.2 H, Lymph # 0.7 , Gray # 0.6, Eos # 0.0, Baso # 0.0 ASSESSMENT: 1. Shortness of breath 2. Acute COPD exacerbation 3. Hypertension 4. Smoker 5. Oral Candidiasis due to aggressive steroid therapy PLAN: 1. Increase Clonidine 0.2 mg b.i.d. 2. Cozaar 50 mg b.i.d. 3. Repeat chest x-ray 4. CBC today Plan and coordination of the patient's care discussed in the presence of Nurse Sitter and nurse. CONDITION: Stable SCRIBED BY: KENISHA FRY Business Instructor scribed while in presence of service performed by Dr. Brito/Rupal Perez APRN on 04/05/17 ([id number])
[2017-04-05] MEDS ORDERED: XANAX PO STA ×2 (10:52→17:57)
[2017-04-05] MEDS: XOPENEX 1.25 MG NEB STA (20:06)
[2017-04-05] MEDS: CRESTOR PO SCH (20:46)
[2017-04-06] MEDS: VASOTEC IV IVP PRN (01:33)
[2017-04-06] MEDS: NORCO 10-325 PO PRN ×2 (01:33→20:51)
[2017-04-06] MEDS ORDERED: ALBUTEROL 0.083% NEB NEB PRN (02:49)
[2017-04-06] MEDS: XOPENEX 1.25 MG NEB STA (05:03)
[2017-04-06] MEDS ORDERED: MINOXIDIL PO STA (05:20)
[2017-04-06] MEDS: SOLU-CORTEF 250 MG IVP SCH ×4 (05:35→23:14)
[2017-04-06] MEDS: PLETAL PO SCH ×2 (05:36→16:50)
[2017-04-06] MEDS: CARAFATE PO SCH ×4 (05:36→20:50)
[2017-04-06] MEDS: XOPENEX 1.25 MG NEB SCH ×4 (05:36→23:02)
[2017-04-06] MEDS: VITAMIN D PO SCH (08:22)
[2017-04-06] MEDS: ASPIRIN CHEWABLE PO SCH (08:22)
[2017-04-06] MEDS: CATAPRES PO SCH ×2 (08:22→20:49)
[2017-04-06] MEDS: CYMBALTA PO SCH (08:23)
[2017-04-06] MEDS: COZAAR PO SCH ×2 (08:23→20:49)
[2017-04-06] MEDS: DALIRESP PO SCH (08:23)
[2017-04-06] MEDS: DYAZIDE PO SCH (08:23)
[2017-04-06] MEDS: COREG PO SCH ×2 (08:23→16:51)
[2017-04-06] MEDS: LEXAPRO PO SCH (08:23)
[2017-04-06] MEDS: KLOR-CON 8 MEQ PO SCH (08:23)
[2017-04-06] MEDS: PROTONIX IV IVP SCH (08:24)
[2017-04-06] MEDS: XANAX PO SCH ×2 (08:24→20:49)
[2017-04-06] MEDS: OMNICEF PO SCH ×2 (08:24→20:49)
[2017-04-06] MEDS: NON-FORMULARY MEDICATION (Cyanocobalamin (Vitamin B-12) [B-12] 500 MCG) PO SCH (08:24)
[2017-04-06] MEDS: LOVENOX SUBCUT SCH (08:24)
[2017-04-06] MEDS: FERROUS SULFATE PO SCH ×2 (08:24→20:49)
[2017-04-06] MEDS: LYRICA PO SCH ×2 (08:24→20:49)
--- NOTE | 2017-04-06 09:32 | PCM.PROG ---
Attending Provider: ATTENDING PROVIDER: Dr. SIDDHARTHA BRITO This patient is seen with Rupal Perez, Nurse Practitioner. DATE OF SERVICE: 04/06/17 SUBJECTIVE: This 71 year old WHITE/ F was hospitalized 03/31/17. The patient is lying in bed resting comfortably, in no distress. She has had consistently elevated blood pressure and anxiety. Shortness of breath has improved and is worsened by anxiety. REVIEW OF SYSTEMS: CONSTITUTIONAL: No night sweats. No fatigue, malaise, lethargy. No fever or chills. HEENT: Eyes: No visual changes. No eye pain. No eye discharge. ENT: No runny nose. No epistaxis. No sinus pain. No odynophagia. No congestion. RESPIRATORY: Positive for shortness of breath. No cough, no congestion. No hemoptysis. CARDIOVASCULAR: No angina symptoms. No CHF symptoms. No atypical chest pain for CAD. No palpitations. No orthopnea.. GASTROINTESTINAL: No abdominal pain. No nausea or vomiting. No diarrhea or constipation. No hematemesis. No hematochezia. GENITOURINARY: No urgency. No frequency. No dysuria. No hematuria. No obstructive symptoms. No discharge. No pain. No significant abnormal bleeding. MUSCULOSKELETAL: No musculoskeletal pain; no joint swelling. NEUROLOGICAL: Sleepy, in no distress. No headache. No neck pain. No syncope. No seizures. No dizziness. PSYCHIATRIC: Anxious. No depression. No suicidal thoughts. No homicidal thoughts. SKIN: No rash. No lesions. No wounds. ENDOCRINE: No unexplained weight loss. No weight gain. HEMATOLOGIC/LYMPHATIC: No anemia. No purpura. No petechiae. No prolonged or excessive bleeding. No palpable lymph nodes. PHYSICAL EXAMINATION: GENERAL: The patient is resting comfortably lying in bed in no distress. VITAL SIGNS: Temperature 97.5 F, Pulse 93, Respiratory Rate 19, BP 180/80, Pulse Ox 94% HEENT: Head normocephalic, atraumatic. Eyes: Extraocular muscles are intact. Pupils are equal, round and reactive to light and accommodation. Ears: No lesions. Nose appeared normal. Throat: No exudate or erythema. NECK: Supple. No JVD, no carotid bruit. No lymphadenopathy or thyromegaly. LUNGS: Diminished breath sounds bilaterally. Clear to auscultation. Percussion note normal. Chest symmetrical. HEART: S1, S2, no S3. No murmurs. No cyanosis or clubbing. No ascites. Pulses: Dorsalis pedis and posterior tibial pulses +1 to +2 both sides. ABDOMEN: Soft. Non-tender. Bowel sounds active. No CVA tenderness. No mass felt. EXTREMITIES: No edema. Full range of motion of all extremities, equal. NEUROLOGIC: No focal deficit. Cranial nerves II through XII are grossly intact. No headache, no double vision or headache. SKIN: Not dry. Intact. Turgor-normal. LYMPHATIC: No palpable lymph nodes/no lymphedema. MUSCULOSKELETAL: Normal joints with no swelling. Muscle tone is normal. LAB REVIEW: 04/05/17 05:00 04/05/17 05:00 04/05/17 05:00: Sodium 140, Potassium 3.8, Chloride 100, Carbon Dioxide 31, Anion Gap 12.8, BUN 25 H, Creatinine 1.09, Estimated GFR (MDRD) 49.00, BUN/ Creatinine Ratio 22.93, Glucose 143 H, Calcium 9.0, Total Bilirubin 0.27, AST 14 L, ALT 20, Alkaline Phosphatase 44 L, Total Protein 5.4 L, Albumin 3.1 L, Globulin 2.3, Albumin/Globulin Ratio 1.35 04/05/17 05:00: WBC 11.38 H, RBC 3.74 L, Hgb 10.7 L, Hct 33.4 L, MCV 89.3, MCH 28.6, MCHC 32.0, RDW Coeff of Tr 17.0 H, Plt Count 150, Immature Gran % (Auto) 2.5, Neut % (Auto) 84.0, Lymph % (Auto) 8.4 L, [place]vier % (Auto) 5.0, Eos % (Auto) 0.0, Baso % (Auto) 0.1, Immature Gran # (Auto) 0.3, Neut # 9.6 H, Lymph # 1.0, Sevier # 0.6, Eos # 0.0, Baso # 0.0 ASSESSMENT: 1. Shortness of breath 2. Acute COPD exacerbation 3. Hypertension 4. Smoker 5. Oral Candidiasis due to aggressive steroid therapy 6. Anxiety PLAN: 1. Anxiety discussed in detail. 2. Will continue to monitor blood pressure. 3. Breathing significantly improved since admission. 4. Smoking cessation advised. Plan and coordination of the patient's care discussed in the presence of Paint Spray Inspector and nurse. CONDITION: Stable SCRIBED BY: KENISHA FRY Nurse Leader scribed while in presence of service performed by Dr. Brito/Rupal Perez APRN on 04/06/17 ([id number])
[2017-04-06] MEDS: MINOXIDIL PO SCH (10:30)
--- NOTE | 2017-04-06 11:21 | US ---
EXAM: Ultrasound renal Doppler. HISTORY: Hypertension. COMPARISON: Abdominal CT 12/08/2016. TECHNIQUE: Son-scale and color Doppler images. FINDINGS: Right kidney measures 10.7 cm in length. The left kidney measures 9.1 cm in length. Left renal cyst noted. There is no hydronephrosis. The aorta, renal arteries and ring veins were not identified due to bowel gas and patient inability t o hold breath. IMPRESSION: 1. Nondiagnostic study for evaluation of the renal arteries. 2. No acute sonographic abnormality of the kidneys. Left renal cyst.
--- NOTE | 2017-04-06 11:49 | US ---
EXAM: Ultrasound retroperitoneal complete. HISTORY: Hypertension. COMPARISON: None available. TECHNIQUE: Multiple rowe scale and color Doppler images. FINDINGS: Right kidney measures 11 x 4.6 x 4.4 cm. The left kidney measures 9 x 4.8 x 4.3 cm. Simp le cysts are present in both kidneys measuring up to 1 cm on the right and 1.7 cm on the left. Corti sohail echogenicity is normal. There is no hydronephrosis. Urinary bladder is unremarkable. IMPRESSION: 1. No acute sonographic abnormality of the kidneys or bladder. 2. Simple bilateral renal cysts.
--- NOTE | 2017-04-06 15:08 | PN ---
DATE OF SERVICE: 04/06/17 SUBJECTIVE: The hospitalized with acute bronchitis and chronic lung disease. The patient has respiratory status and seems to be under control. Her main problem now is hypertension it has been difficult to control. Today the patient was started on Minoxidil 5mg twice a day. The patient was taken off Hydralazine. The patient will have renal flow studies done to rule out renal artery stenosis. PHYSICAL EXAMINATION: HEENT: Head normocephalic, atraumatic. Eyes: Extraocular muscles are intact. Pupils are equal, round and reactive to light and accommodation. Ears: No lesions. Nose appeared normal. Throat: No exudate or erythema. NECK: Supple. No JVD, no carotid bruit. No lymphadenopathy or thyromegaly. LUNGS: Decreased breath sounds but good air entry. Percussion note normal. Chest symmetrical. HEART: S1, S2, no S3. No murmurs. No cyanosis or clubbing. No ascites. Pulses: Dorsalis pedis and posterior tibial pulses +1 to +2 both sides. ABDOMEN: Soft. Nontender. Bowel sounds active. No CVA tenderness. No mass felt. EXTREMITIES: No edema. Full range of motion of all extremities, equal. NEUROLOGIC: No focal deficit. Cranial nerves II through XII are grossly intact. No headache, no double vision or headache. SKIN: Not dry. Intact. Turgor - normal. LYMPHATIC: No palpable lymph nodes/no lymphedema. MUSCULOSKELETAL: Normal joints with no swelling. Muscle tone is normal. PROGNOSIS: Poor as she has continued to smoke with severe chronic lung disease and peripheral arterial disease The patient was seen and examined with Nurse Practitioner. TIME SPENT: More than 30 minutes. Plan and coordination of the patient's care discussed in the presence of nurse. KEVIN
[2017-04-06] MEDS: CRESTOR PO SCH (20:48)
[2017-04-07] MEDS: XOPENEX 1.25 MG NEB SCH ×4 (05:28→23:00)
[2017-04-07] MEDS: SOLU-CORTEF 250 MG IVP SCH (05:35)
[2017-04-07] MEDS: PLETAL PO SCH ×2 (05:35→17:32)
[2017-04-07] MEDS: CARAFATE PO SCH ×4 (05:35→20:19)
[2017-04-07] MEDS ORDERED: KLOR-CON 8 MEQ PO SCH (08:59)
[2017-04-07] MEDS: COREG PO SCH ×2 (09:39→17:32)
[2017-04-07] MEDS: ASPIRIN CHEWABLE PO SCH (09:39)
[2017-04-07] MEDS: COZAAR PO SCH ×2 (09:40→20:18)
[2017-04-07] MEDS: CATAPRES PO SCH ×2 (09:40→20:18)
[2017-04-07] MEDS: DYAZIDE PO SCH (09:41)
[2017-04-07] MEDS: DALIRESP PO SCH (09:41)
[2017-04-07] MEDS: CYMBALTA PO SCH (09:41)
[2017-04-07] MEDS: LEXAPRO PO SCH (09:42)
[2017-04-07] MEDS: FERROUS SULFATE PO SCH ×2 (09:42→20:18)
[2017-04-07] MEDS: LOVENOX SUBCUT SCH (09:42)
[2017-04-07] MEDS: NORCO 10-325 PO PRN (09:43)
[2017-04-07] MEDS: LYRICA PO SCH ×2 (09:43→20:18)
[2017-04-07] MEDS: OMNICEF PO SCH ×2 (09:43→20:18)
[2017-04-07] MEDS: PROTONIX IV IVP SCH (09:43)
[2017-04-07] MEDS: XANAX PO SCH ×3 (09:43→20:18)
[2017-04-07] MEDS: VITAMIN D PO SCH (09:43)
[2017-04-07] MEDS: MINOXIDIL PO SCH (09:44)
[2017-04-07] MEDS: NON-FORMULARY MEDICATION (Cyanocobalamin (Vitamin B-12) [B-12] 500 MCG) PO SCH (09:45)
[2017-04-07] MEDS ORDERED: KLOR-CON 8 MEQ PO STA (09:48)
[2017-04-07] MEDS: KLOR-CON 8 MEQ PO SCH ×2 (10:58→17:32)
--- NOTE | 2017-04-07 11:53 | PN ---
DATE OF SERVICE: 04/03/17 SUBJECTIVE: 71-year-old white female hospitalized with shortness of air, acute bronchitis, chronic lung disease. The patient's condition improved with IV steroids, nebs treatment and antibiotics. She was stable this morning when I saw her but all of a sudden the patient's condition deteriorated with panic type of disorder with wheezing. The patient, at that time, was given Xanax 0.5 extra along with Morphine 3 mg IV along with 125 mg IV Solu-Cortef earlier dose than usual. The patient's condition improved remarkably. She settled down at the time when I saw her again around 2 p.m. The patient was breathing better, feeling better. She was somewhat drowsy but she was in no distress. Her vitals were stable this morning. PHYSICAL EXAMINATION: VITAL SIGNS: Temperature 98, pulse 89, respiratory rate 16, BP 173/72, pulse ox 99%. HEENT: Head normocephalic, atraumatic. Eyes: Extraocular muscles are intact. Pupils are equal, round and reactive to light and accommodation. Ears: No lesions. Nose appeared normal. Throat: No exudate or erythema. NECK: Supple. No JVD, no carotid bruit. No lymphadenopathy or thyromegaly. LUNGS: Decreased breath sounds, mild wheeze but good air entry. Percussion note normal. Chest symmetrical. HEART: S1, S2, no S3. No murmurs. No cyanosis or clubbing. No ascites. Pulses: Dorsalis pedis and posterior tibial pulses +1 to +2 both sides. ABDOMEN: Soft. Nontender. Bowel sounds active. No CVA tenderness. No mass felt. EXTREMITIES: No edema. Full range of motion of all extremities, equal. NEUROLOGIC: No focal deficit. Cranial nerves II through XII are grossly intact. No headache, no double vision or headache. SKIN: Not dry. Intact. Turgor - normal. LYMPHATIC: No palpable lymph nodes/no lymphedema. MUSCULOSKELETAL: Normal joints with no swelling. Muscle tone is normal. LABS: The patient did not have oxygen on and at that time her oximetry was close to 91 %. Hemoglobin 8.7, hematocrit 26, WBC 10,000, normal differential. Creatinine 0.8, BUN 19, potassium 3.7. The patient had type and crossmatch and one unit of PRBC was given. Hgb of 8.7 and hct of 26 was yesterday - today it was 8.4 and has low hemoglobin for her. Cardiovascular status problems like coronary artery disease, CHF and shortness of breath with poor nutrition, underweight she has BMI of 18. The patient will be given 1 unit of PRBC. The patient is very strongly advised to quit smoking. Counseling for smoking done. The patient is DNI - the patient is not to be intubated in case of cardiopulmonary arrest and no respirator. CONDITION: Stable. TIME SPENT: Extensive Plan and coordination of the patient's care discussed in the presence of nurse. KEVIN
--- NOTE | 2017-04-07 12:59 | PN ---
DATE OF SERVICE: 04/04/17 SUBJECTIVE: 71-year-old white female hospitalized with severe chronic lung disease with acute bronchitis. The patient had respiratory distress yesterday a couple of times which has resolved. This morning she is breathing good and feeling better. REVIEW OF SYSTEMS: CONSTITUTIONAL: No night sweats. No fatigue, malaise, lethargy. No fever or chills. HEENT: Eyes: No visual changes. No eye pain. No eye discharge. ENT: No runny nose. No epistaxis. No sinus pain. No sore throat. No odynophagia. No congestion. RESPIRATORY: No cough, no congestion. No hemoptysis. No shortness of breath. CARDIOVASCULAR: No angina symptoms. No CHF symptoms. No atypical chest pain for CAD. No palpitations. No orthopnea. GASTROINTESTINAL: No abdominal pain. No nausea or vomiting. No diarrhea or constipation. No hematemesis. No hematochezia. GENITOURINARY: No urgency. No frequency. No dysuria. No hematuria. No obstructive symptoms. No discharge. No pain. No significant abnormal bleeding. MUSCULOSKELETAL: No musculoskeletal pain; no joint swelling. NEUROLOGICAL: No headache. No neck pain. No syncope. No seizures. No dizziness. PSYCHIATRIC: Not anxious. No depression. No suicidal thoughts. No homicidal thoughts. SKIN: No rash. No lesions. No wounds. ENDOCRINE: No unexplained weight loss. No weight gain. HEMATOLOGIC/LYMPHATIC: No anemia. No purpura. No petechiae. No prolonged or excessive bleeding. No palpable lymph nodes. PHYSICAL EXAMINATION: HEENT: Head normocephalic, atraumatic. Eyes: Extraocular muscles are intact. Pupils are equal, round and reactive to light and accommodation. Ears: No lesions. Nose appeared normal. Throat: No exudate or erythema. NECK: Supple. No JVD, no carotid bruit. No lymphadenopathy or thyromegaly. LUNGS: Decreased breath sounds, mild wheeze, very faint. Percussion note normal. Chest symmetrical. HEART: S1, S2, no S3. No murmurs. No cyanosis or clubbing. No ascites. Pulses: Dorsalis pedis and posterior tibial pulses +1 to +2 both sides. ABDOMEN: Soft. Nontender. Bowel sounds active. No CVA tenderness. No mass felt. EXTREMITIES: No edema. Full range of motion of all extremities, equal. NEUROLOGIC: No focal deficit. Cranial nerves II through XII are grossly intact. No headache, no double vision or headache. SKIN: Not dry. Intact. Turgor - normal. LYMPHATIC: No palpable lymph nodes/no lymphedema. MUSCULOSKELETAL: Normal joints with no swelling. Muscle tone is normal. ASSESSMENT: The patient has panic type of disorder making her situation worse. She doesn't have any symptoms of CHF or coronary insufficiency. Her blood pressure is better controlled but still fluctuates because of her anxiety related symptoms. PLAN: 1. She was given one unit of packed red cells. Her hemoglobin is now 9.8, hematocrit 30. She has no evidence of active GI bleed. She declined colonoscopy. The patient continues to smoke and counseling for smoking done. 2. The patient is assured of her panic problems. She is on Xanax. Morphine is given intermittently. 3. Continue steroids. 4. Continue antibiotics. CONDITION: Stable. PROGNOSIS: Guarded. TIME SPENT: More than 30 minutes. Plan and coordination of the patient's care discussed in the presence of nurse. KEVIN
--- NOTE | 2017-04-07 13:04 | PN ---
DATE OF SERVICE: 04/05/17 SUBJECTIVE: 71-year-old white female hospitalized with shortness of breath, acute bronchitis , severe chronic lung disease, smoking. Three times during this weekend, the patient had acute respiratory distress with panic disorder which was treated with Morphine Sulfate, steroids, nebs treatment. The patient was given one unit of packed red cells because hemoglobin dropped to 8.4 and she was getting light- headed, weak, dizzy. After blood transfusion, the patient is feeling a lot better. Her cardiovascular status is stable. Again, counseling for smoking done. The patient was seen and examined with the nurse practitioner. TIME SPENT: More than 30 minutes. Plan and coordination of the patient's care discussed in the presence of nurse. KEVIN
--- NOTE | 2017-04-07 14:10 | PCM.PROG ---
Attending Provider: ATTENDING PROVIDER: Dr. SIDDHARTHA BRITO DATE OF SERVICE: 04/07/17 SUBJECTIVE: This 71 year old WHITE/ F was hospitalized 03/31/17. The patient is hospitalized with severe chronic lung disease. Hemoglobin and hematocrit are stable. No evidence of GI bleed. REVIEW OF SYSTEMS: CONSTITUTIONAL: No night sweats. No fatigue, malaise, lethargy. No fever or chills. HEENT: Eyes: No visual changes. No eye pain. No eye discharge. ENT: No runny nose. No epistaxis. No sinus pain. No odynophagia. No congestion. RESPIRATORY: No cough, no congestion. No hemoptysis. No shortness of breath. CARDIOVASCULAR: No angina symptoms. No CHF symptoms. No atypical chest pain for CAD. No palpitations. No orthopnea.. GASTROINTESTINAL: No abdominal pain. No nausea or vomiting. No diarrhea or constipation. No hematemesis. No hematochezia. GENITOURINARY: No urgency. No frequency. No dysuria. No hematuria. No obstructive symptoms. No discharge. No pain. No significant abnormal bleeding. MUSCULOSKELETAL: No musculoskeletal pain; no joint swelling. NEUROLOGICAL: Awake, alert, oriented to time, place and person. No headache. No neck pain. No syncope. No seizures. No dizziness. PSYCHIATRIC: Not anxious. No depression. No suicidal thoughts. No homicidal thoughts. SKIN: No rash. No lesions. No wounds. ENDOCRINE: No unexplained weight loss. No weight gain. HEMATOLOGIC/LYMPHATIC: No anemia. No purpura. No petechiae. No prolonged or excessive bleeding. No palpable lymph nodes. PHYSICAL EXAMINATION: GENERAL: The patient is awake, alert and oriented, lying in bed in no distress. VITAL SIGNS: Temperature 97.7 F, Pulse 100, Respiratory Rate 16, BP 147/71, Pulse Ox 99% HEENT: Head normocephalic, atraumatic. Eyes: Extraocular muscles are intact. Pupils are equal, round and reactive to light and accommodation. Ears: No lesions. Nose appeared normal. Throat: No exudate or erythema. NECK: Supple. No JVD, no carotid bruit. No lymphadenopathy or thyromegaly. LUNGS: Clear to auscultation. Percussion note normal. Chest symmetrical. HEART: S1, S2, no S3. No murmurs. No cyanosis or clubbing. No ascites. Pulses: Dorsalis pedis and posterior tibial pulses +1 to +2 both sides. ABDOMEN: Soft. Non-tender. Bowel sounds active. No CVA tenderness. No mass felt. EXTREMITIES: No edema. Full range of motion of all extremities, equal. NEUROLOGIC: No focal deficit. Cranial nerves II through XII are grossly intact. No headache, no double vision or headache. SKIN: Not dry. Intact. Turgor-normal. LYMPHATIC: No palpable lymph nodes/no lymphedema. MUSCULOSKELETAL: Normal joints with no swelling. Muscle tone is normal. LAB REVIEW: 04/07/17 07:20 04/07/17 07:20 04/07/17 07:20: Sodium 140, Potassium 3.1 L, Chloride 94 L, Carbon Dioxide 38 H , Anion Gap 11.1, BUN 33 H, Creatinine 1.02, Estimated GFR (MDRD) 53.00, BUN/ Creatinine Ratio 32.35, Glucose 131 H, Calcium 9.2, Total Bilirubin 0.5, AST 16 , ALT 20, Alkaline Phosphatase 38 L, Total Protein 5.6 L, Albumin 3.1 L, Globulin 2.5, Albumin/Globulin Ratio 1.24 04/07/17 07:20: WBC 9.98, RBC 3.74 L, Hgb 10.9 L, Hct 32.4 L, MCV 86.6, MCH 29.1 , MCHC 33.6, RDW Coeff of Tr 15.9 H, Plt Count 133 L, Immature Gran % (Auto) 0.7, Neut % (Auto) 84.3, Lymph % (Auto) 10.5, [place] % (Auto) 4.4, Eos % (Auto) 0.0, Baso % (Auto) 0.1, Immature Gran # (Auto) 0.1, Neut # 8.4 H, Lymph # 1.1, [place] # 0.4, Eos # 0.0, Baso # 0.0 ASSESSMENT: 1. SHORTNESS OF BREATH 2. ACUTE COPD EXACERBATION 3. HYPERTENSION 4. SMOKER 5. ORAL CANDIDIASIS DUE TO AGGRESSIVE STEROID THERAPY 6. ANXIETY PLAN: 1. Potassium 8 mEq two tablets twice a day 2. Increase Xanax to t.i.d. 3. Lexapro 20 mg daily 4. D/C Solu-Cortef 5. Prednisone 20 mg daily Plan and coordination of the patient's care discussed in the presence of Taxicab Dispatcher and nurse. CONDITION: STABLE SCRIBED BY: KENISHA FRY Fixer Boarding Room scribed while in presence of service performed by Dr. SIDDHARTHA BRITO on 04/07/17 ([id number])
[2017-04-07] MEDS: CRESTOR PO SCH (20:24)
[2017-04-07] MEDS: TORADOL IVP PRN (20:25)
[2017-04-08] MEDS: XOPENEX 1.25 MG NEB SCH ×2 (04:43→11:19)
[2017-04-08] MEDS: CARAFATE PO SCH ×2 (05:42→12:51)
[2017-04-08] MEDS: PLETAL PO SCH (05:43)
[2017-04-08] MEDS ORDERED: PREDNISONE PO SCH (08:00)
[2017-04-08] MEDS: XANAX PO SCH (09:15)
[2017-04-08] MEDS: COREG PO SCH (09:15)
[2017-04-08] MEDS: LYRICA PO SCH (09:15)
[2017-04-08] MEDS: VITAMIN D PO SCH (09:16)
[2017-04-08] MEDS: DALIRESP PO SCH (09:16)
[2017-04-08] MEDS: DYAZIDE PO SCH (09:16)
[2017-04-08] MEDS: ASPIRIN CHEWABLE PO SCH (09:16)
[2017-04-08] MEDS: MINOXIDIL PO SCH (09:28)
[2017-04-08] MEDS: OMNICEF PO SCH (09:28)
[2017-04-08] MEDS: LEXAPRO PO SCH (09:30)
[2017-04-08] MEDS: COZAAR PO SCH (09:30)
[2017-04-08] MEDS: CYMBALTA PO SCH (09:31)
[2017-04-08] MEDS: NON-FORMULARY MEDICATION (Cyanocobalamin (Vitamin B-12) [B-12] 500 MCG) PO SCH (09:31)
[2017-04-08] MEDS: KLOR-CON 8 MEQ PO SCH (09:31)
[2017-04-08] MEDS: CATAPRES PO SCH (09:32)
[2017-04-08] MEDS: FERROUS SULFATE PO SCH (09:32)
[2017-04-08] MEDS: PROTONIX IV IVP SCH (09:32)
[2017-04-08] MEDS: LOVENOX SUBCUT SCH (09:34)
--- NOTE | 2017-04-08 09:38 | PCM.PROG ---
Attending Provider: ATTENDING PROVIDER: Dr. SIDDHARTHA BRITO This patient is seen with Rupal Perez, Nurse Practitioner. DATE OF SERVICE: 04/08/17 SUBJECTIVE: This 71 year old WHITE/ F was hospitalized 03/31/17. Alert and sitting in bed. Shortness of breath significantly improved. No panic attack yesterday. REVIEW OF SYSTEMS: CONSTITUTIONAL: No night sweats. No fatigue, malaise, lethargy. No fever or chills. HEENT: Eyes: No visual changes. No eye pain. No eye discharge. ENT: No runny nose. No epistaxis. No sinus pain. No odynophagia. No congestion. RESPIRATORY: No cough, no congestion. No hemoptysis. Shortness of breath. CARDIOVASCULAR: No angina symptoms. No CHF symptoms. No atypical chest pain for CAD. No palpitations. No orthopnea.. GASTROINTESTINAL: No abdominal pain. No nausea or vomiting. No diarrhea or constipation. No hematemesis. No hematochezia. GENITOURINARY: No urgency. No frequency. No dysuria. No hematuria. No obstructive symptoms. No discharge. No pain. No significant abnormal bleeding. MUSCULOSKELETAL: No musculoskeletal pain; no joint swelling. NEUROLOGICAL: Awake, alert, oriented to time, place and person. No headache. No neck pain. No syncope. No seizures. No dizziness. PSYCHIATRIC: Anxious. No depression. No suicidal thoughts. No homicidal thoughts. SKIN: No rash. No lesions. No wounds. ENDOCRINE: No unexplained weight loss. No weight gain. HEMATOLOGIC/LYMPHATIC: No anemia. No purpura. No petechiae. No prolonged or excessive bleeding. No palpable lymph nodes. PHYSICAL EXAMINATION: GENERAL: The patient is awake, alert and oriented, sitting in bed in no distress. VITAL SIGNS: Temperature 97.2 F, Pulse 88, Respiratory Rate 16, BP 135/52, Pulse Ox 99% HEENT: Head normocephalic, atraumatic. Eyes: Extraocular muscles are intact. Pupils are equal, round and reactive to light and accommodation. Ears: No lesions. Nose appeared normal. Throat: No exudate or erythema. NECK: Supple. No JVD, no carotid bruit. No lymphadenopathy or thyromegaly. LUNGS: Bilateral diminished breath sounds. Clear to auscultation. Percussion note normal. Chest symmetrical. HEART: S1, S2, no S3. No murmurs. No cyanosis or clubbing. No ascites. Pulses: Dorsalis pedis and posterior tibial pulses +1 to +2 both sides. ABDOMEN: Soft. Non-tender. Bowel sounds active. No CVA tenderness. No mass felt. EXTREMITIES: No edema. Full range of motion of all extremities, equal. NEUROLOGIC: No focal deficit. Cranial nerves II through XII are grossly intact. No headache, no double vision or headache. SKIN: Not dry. Intact. Turgor-normal. LYMPHATIC: No palpable lymph nodes/no lymphedema. MUSCULOSKELETAL: Normal joints with no swelling. Muscle tone is normal. LAB REVIEW: 04/08/17 07:13 04/07/17 07:20 04/08/17 07:13: WBC 7.47, RBC 3.63 L, Hgb 10.5 L, Hct 32.1 L, MCV 88.4, MCH 28.9 , MCHC 32.7, RDW Coeff of Tr 15.6 H, Plt Count 113 L, Immature Gran % (Auto) 0.4, Neut % (Auto) 69.3, Lymph % (Auto) 21.2, [place] % (Auto) 9.1, Eos % (Auto) 0.0, Baso % (Auto) 0.0, Immature Gran # (Auto) 0.0, Neut # 5.2, Lymph # 1.6, [place] # 0.7, Eos # 0.0, Baso # 0.0 04/07/17 07:20: Sodium 140, Potassium 3.1 L, Chloride 94 L, Carbon Dioxide 38 H , Anion Gap 11.1, BUN 33 H, Creatinine 1.02, Estimated GFR (MDRD) 53.00, BUN/ Creatinine Ratio 32.35, Glucose 131 H, Calcium 9.2, Total Bilirubin 0.5, AST 16 , ALT 20, Alkaline Phosphatase 38 L, Total Protein 5.6 L, Albumin 3.1 L, Globulin 2.5, Albumin/Globulin Ratio 1.24 ASSESSMENT: Please see below. Shortness of breath, resolving Acute COPD exacerbation, resolving Hypokalemia Smoker Anxiety Hypertension, under control PLAN: Discharge home Prednisone 20m daily x3 days and 10mg daily for 4 day. Omnicef 300mg twice daily for 7 days Continue Minoxidil Increase Lexapro and Xanax Smoking cessation advised. Plan and coordination of the patient's care discussed in the presence of Planning Official and nurse. SCRIBED BY: REGGIE SAUNDERS Stucco Plasterer scribed while in presence of service performed by Dr. Brito/Rupal Perez APRN on 04/08/17 ([id number])
[2017-04-08 10:14] VITALS: BP 133/60; TEMP 97.7
--- NOTE | 2017-04-08 14:16 | CM.DICTOOL ---
ADMISSION: 03/31/17 19:02 DISCHARGE: 04/08/17 DATE OF SERVICE: 04/08/17 FINAL DIAGNOSIS COPD EXACERBATION HYPERTENSION ANEMIA (REQUIRED 1 UNIT PRBC TRANSFUSION, 04/03/17) HYPOKALEMIA, REPLACED ANXIETY/PANIC EPISODES PULMONARY NODULE, [address] NEUROPATHY DYSLIPIDEMIA DEPRESSION OSTEOARTHRITIS DJD SPINE CAROTID OCCLUSIVE DISEASE INFRARENAL ARTERY STENOSIS HYSTERECTOMY, 1989 AORTOILIAC BYPASS AAA, 1997 LVH (LVEF 53%-ECHO, 11/02) CURRENT EVERYDAY SMOKER LAST VITALS Temp Pulse Resp BP Pulse Ox 97.7 F 101 H 20 133/60 97 04/08/17 10:00 04/08/17 10:00 04/08/17 10:00 04/08/17 10:00 04/08/17 10:00 ACTIVE MEDICATIONS Acetaminophen/Hydrocodone Bitart ([place] 10-325) 1 tab PO TID PRN PRN Reason: PAIN Last Admin: 04/07/17 09:43 Dose: 1 tab Alprazolam (Xanax) 0.25 mg PO TID AYAD (CHANGED FROM BID PRN) Last Admin: 04/08/17 09:15 Dose: 0.25 mg Arformoterol Tartrate ([place]rovana) 1 Vial IH Q12 H PRN Aspirin (Aspirin Chewable) 81 mg PO DAILYWM [facility] Last Admin: 04/08/17 09:16 Dose: 81 mg Carvedilol (Coreg) 25 mg PO BIDWM [facility] Last Admin: 04/08/17 09:15 Dose: 25 mg Cholecalciferol (Vitamin D) 400 unit PO DAILY [facility] Last Admin: 04/08/17 09:16 Dose: 400 unit Cilostazol (Pletal) 100 mg PO BIDAC [facility] Last Admin: 04/08/17 05:43 Dose: 100 mg Clonidine (Catapres) 0.1 mg PO BID AYAD (CHANGED TO SCHEDULED FROM PRN) Last Admin: 04/08/17 09:32 Dose: 0.1 mg Duloxetine HCl (Cymbalta) 60 mg PO DAILY [facility] Last Admin: 04/08/17 09:31 Dose: 60 mg Escitalopram Oxalate (Lexapro) 20 mg PO DAILY AYAD (INCREASED FROM 10 MG DAILY ) Last Admin: 04/08/17 09:30 Dose: 20 mg Ferrous Sulfate (Ferrous Sulfate) 324 mg PO BID [facility] Last Admin: 04/08/17 09:32 Dose: 324 mg Losartan Potassium (Cozaar) 50 mg PO BID AYAD Last Admin: 04/08/17 09:30 Dose: 50 mg Cyanocobalamin (Vitamin B-12) [B-12] 500 mcg PO DAILY AYAD Last Admin: 04/08/17 09:31 Dose: Not Given Tiotropium Br/Olodaterol Hcl [Stiolto Respimat Inhal [place]] 2.5 mcg IH DAILY AYAD Last Admin: 04/08/17 09:33 Dose: 2.5 mcg Potassium Chloride (Micro-K) 10 meq PO DAILYWM AYAD (INCREASED FROM 8 MEQ) Last Admin: 04/08/17 09:31 Dose: 16 meq Pregabalin (Lyrica) 50 mg PO BID AYAD Last Admin: 04/08/17 09:15 Dose: 50 mg Roflumilast (Daliresp) 500 mcg PO DAILY AYAD Last Admin: 04/08/17 09:16 Dose: 500 mcg Rosuvastatin Calcium (Crestor) 20 mg PO BEDTIME AYAD Last Admin: 04/07/17 20:24 Dose: 20 mg Triamterene/HCTZ (Dyazide) 1 cap PO DAILY [facility]YAD (DISCONTINUED) Last Admin: 04/08/17 09:16 Dose: 1 cap ALLERGIES No Known Allergies Allergy (Verified 03/31/17 17:29) NEW PRESCRIPTIONS: DO NOT TAKE YOUR HYDRALAZINE HCL NOTE THE INCREASE IN YOUR XANAX TO 0.25 MG TWICE DAILY NEEDED NOTE THAT YOUR CLONIDINE HCL IS 0.1 MG TWICE DAILY SCHEDULED INSTEAD OF IF NEEDED NOTE THE INCREASE IN YOUR LEXAPRO TO 20 MG DAILY NOTE THE INCREASE IN YOUR MICRO-K TO 10 MEQ DAILY DO NOT TAKE YOUR PREDNISONE SCHEDULED SEE NEW DIRECTIONS BELOW NEW PRESCRIPTIONS LEXAPRO 20 MG, TAKE ONE TABLET BY MOUTH DAILY CLONIDINE HCL O.1 MG, TAKE ONE TABLET BY MOUTH TWICE DAILY MICRO K 10 MEQ, TAKE ONE CAPSULE BY MOUTH DAILY OMNICEF 300 MG, TAKE ONE CAPSULE BY MOUTH TWICE DAILY FOR 7 DAYS MINOXIDIL 5 MG, TAKE ONE TABLET BY MOUTH DAILY PREDNISONE 10 MG, TAKE TWO TABLETS (20 MG) BY MOUTH DAILY FOR 3 DAYS, THEN ONE TABLET (10 MG) BY MOUTH DAILY FOR 4 DAYS, THEN STOP. TAKE THIS MEDICATION WITH FOOD SMOKING: CURRENT EVERY DAY SMOKER THE PATIENT HAS BEEN PROVIDED INFORMATION/EDUCATION REGARDING SMOKING CESSATION. SHE IS ACUTELY AWARE OF THE ADDED RISK CONTINUATION CAUSES TO HER CARDIOPULMONARY HEALTH. SHE IS AWARE OF THE BENEFIT COMPLETE CESSATION WOULD PRODUCE. SHE HAS NOT VERBALIZED HER INTENTION TO CUT DOWN OR STOP. SHE WOULD BENEFIT FROM CONTINUED EDUCATION AND ENCOURAGEMENT FOR COMPLETE CESSATION IN THE OUTPATIENT SETTING. DISEASE SPECIFIC EDUCATION: COPD ANEMIA HYPERTENSION HYPOKALEMIA ANXIETY HOME MEDICATIONS AND CHANGES NEW PRESCRIPTIONS FOLLOW UP ACTIVITY RISKS OF HALFWAY STEROID USE LAB REVIEW: 04/08/17 07:13 04/08/17 07:30 04/08/17 07:30: Sodium 140, Potassium 3.6, Chloride 96 L, Carbon Dioxide 40 H, Anion Gap 7.6, BUN 43 H, Creatinine 1.25, Estimated GFR (MDRD) 42.00, BUN/ Creatinine Ratio 34.40, Glucose 83, Calcium 9.1, Total Bilirubin 0.4, AST 20, ALT 26, Alkaline Phosphatase 35 L, Total Protein 5.1 L, Albumin 2.9 L, Globulin 2.2, Albumin/Globulin Ratio 1.32 04/08/17 07:13: WBC 7.47, RBC 3.63 L, Hgb 10.5 L, Hct 32.1 L, MCV 88.4, MCH 28.9 , MCHC 32.7, RDW Coeff of Tr 15.6 H, Plt Count 113 L, Immature Gran % (Auto) 0.4, Neut % (Auto) 69.3, Lymph % (Auto) 21.2, [place] % (Auto) 9.1, Eos % (Auto) 0.0, Baso % (Auto) 0.0, Immature Gran # (Auto) 0.0, Neut # 5.2, Lymph # 1.6, [place] # 0.7, Eos # 0.0, Baso # 0.0 PLAN: DISCHARGE HOME TODAY RETURN TO SEE DR. BRITO ON 04/14/17 AT 10 A.M. RESUME YOUR HOME MEDICATIONS PER LIST PROVIDED BY THE NURSING STAFF DO NOT TAKE YOUR HYDRALAZINE HCL NOTE THE INCREASE IN YOUR XANAX TO 0.25 MG TWICE DAILY NEEDED NOTE THAT YOUR CLONIDINE HCL IS 0.1 MG TWICE DAILY SCHEDULED INSTEAD OF IF NEEDED NOTE THE INCREASE IN YOUR LEXAPRO TO 20 MG DAILY NOTE THE INCREASE IN YOUR MICRO-K TO 10 MEQ DAILY DO NOT TAKE YOUR PREDNISONE SCHEDULED SEE NEW DIRECTIONS BELOW NEW PRESCRIPTIONS LEXAPRO 20 MG, TAKE ONE TABLET BY MOUTH DAILY CLONIDINE HCL O.1 MG, TAKE ONE TABLET BY MOUTH TWICE DAILY MICRO K 10 MEQ, TAKE ONE CAPSULE BY MOUTH DAILY OMNICEF 300 MG, TAKE ONE CAPSULE BY MOUTH TWICE DAILY FOR 7 DAYS MINOXIDIL 5 MG, TAKE ONE TABLET BY MOUTH DAILY PREDNISONE 10 MG, TAKE TWO TABLETS (20 MG) BY MOUTH DAILY FOR 3 DAYS, THEN ONE TABLET (10 MG) BY MOUTH DAILY FOR 4 DAYS, THEN STOP. TAKE THIS MEDICATION WITH FOOD ACTIVITY GET PLENTY OF REST AT HOME. GRADUALLY INCREASE YOUR ACTIVITY LEVEL ACCORDING TO YOUR TOLERATION DIET HEALTHY HEART SUMMARY THE PATIENT IS ALERT AND ORIENTED X3. SHE CURRENTLY RESIDES AT HOME WITH HER SPOUSE. SHE HAS BEEN INDEPENDENT WITH ADL'S AT HOME. SHE IS REQUIRED TO USE HOME OXYGEN AND HAS A NEBULIZER FOR BREATHING TREATMENTS. SHE DESIRES TO RETURN HOME AT DISCHARGE. MS. BERMUDEZ' SKIN TURGOR IS FAIR AND WITHOUT DECUBITUS ULCERS. SHE HAS A LARGE AREA OF ECCHYMOSIS TO HER LEFT CHIN EXTENDING TO BELOW HER CHIN AND UPPER NECK FROM A RECENT FALL AT HOME. SHE HAS AREAS OF BRUISING TO HER ARMS IN VARIOUS STAGES OF HEALING. HER NUTRITIONAL AND HYDRATION STATUS ARE FAIR TO GOOD. SHE IS AWARE AND AGREEABLE FOR DISCHARGE HOME TODAY. CURRENT CODE STATUS DO NOT INTUBATE, CPR ONLY MILDRED TRAN APRN SIDDHARTHA BRITO M.D.
--- NOTE | 2017-04-13 13:14 | PN ---
DATE OF SERVICE: 04/08/17 SUBJECTIVE: The patient was hospitalized with acute bronchitis, chronic lung disease. The patient during the stay in the hospital ended up with panic type of symptoms with acute shortness of breath at time and that has been controlled with Xanax and Lexapro. She is feeling better. PHYSICAL EXAMINATION: HEENT: Head normocephalic, atraumatic. Eyes: Extraocular muscles are intact. Pupils are equal, round and reactive to light and accommodation. Ears: No lesions. Nose appeared normal. Throat: No exudate or erythema. NECK: Supple. No JVD, no carotid bruit. No lymphadenopathy or thyromegaly. LUNGS: Decreased breath sounds but clear to auscultation. Percussion note normal. Chest symmetrical. HEART: S1, S2, no S3. No murmurs. No cyanosis or clubbing. No ascites. Pulses: Dorsalis pedis and posterior tibial pulses +1 to +2 both sides. ABDOMEN: Soft. Nontender. Bowel sounds active. No CVA tenderness. No mass felt. EXTREMITIES: No edema. Full range of motion of all extremities, equal. NEUROLOGIC: No focal deficit. Cranial nerves II through XII are grossly intact. No headache, no double vision or headache. SKIN: Not dry. Intact. Turgor - normal. LYMPHATIC: No palpable lymph nodes/no lymphedema. MUSCULOSKELETAL: Normal joints with no swelling. Muscle tone is normal. PLAN: 1. Counseling for smoking done. 2. She is strongly advised to quit smoking. 3. The patient's does have any suicidal or homicidal tendency. To some extent depressed especially during Holiday season. 4. The patients is in the room and he is one that is going to monitor the patient's medications. 5. The patient strongly advised pulmonary rehab which she declined. CONDITION: Stable at the time of discharge The patient was seen and examined with Nurse Practitioner. TIME SPENT: More than 30 minutes. Plan and coordination of the patient's care discussed in the presence of nurse. KEVIN
--- NOTE | 2017-04-13 13:17 | PN ---
12/13/17: Level 5 1214/17: Intermediate 1215/17: Intermediate 16/17: Intermediate 04/04/17: Intermediate 04/05/17: Intermediate 04/06/: Intermediate 04/07/17: Intermediate 04/08/17: D as in discharge. MTDD
--- NOTE | 2017-04-22 14:09 | DS ---
DATE OF SERVICE: 04/08/17 FINAL DIAGNOSIS: 1. COPD EXACERBATION 2. HYPERTENSION 3. ANEMIA (REQUIRED 1 UNIT PRBC TRANSFUSION, 04/03/17) 4. HYPOKALEMIA, REPLACED 5. ANXIETY/PANIC EPISODES 6. PULMONARY NODULE [address] 7. NEUROPATHY 8. DYSLIPIDEMIA 9. DEPRESSION 10. 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 CAROTID OCCLUSIVE DISEASE 13. INFRARENAL ARTERY STENOSIS 14. HYSTERECTOMY, 1989 15. AORTOILIAC BYPASS 16. AAA, 1997 17. LVH (LVEF 53%-ECHO, 11/02) 18. CURRENT EVERY DAY SMOKER DISCHARGE INSTRUCTIONS: Followup appointment: Return to see Dr. Dawson on 04/14/17 at 10 a.m. MEDICATIONS AT DISCHARGE: [place] 10-325 one tab p.o. t.i.d. p.r.n. Xanax 0.25 mg p.o. t.i.d. AYAD Brovana IH q.12h p.r.n. Aspirin 81 mg p.o. daily with meal AYAD Coreg 25 mg p.o. b.i.d. with meal AYAD Vitamin D 400 unit p.o. daily AYAD Pletal 100 mg p.o. b.i.d. a.c. AYAD Catapres 0.1 mg p.o.b.i.d. AYAD (changed to scheduled from p.r.n.) Cymbalta 60 mg p.o. daily AYAD Lexapro 20 mg p.o. daily AYAD (increased from 10 mg daily) Ferrous Sulfate 324 mg p.o. b.i.d. AYAD Cozaar 50 mg p.o. b.i.d. AYAD Vitamin B12 500 mcg p.o. daily AYAD Stiolto Respimate Inhal spray 2.5 mcg IH daily AYAD Micro-K 10 mEq p.o. daily with meal (increased from 8 mEq) Lyrica 50 mg p.o. b.i.d. AYAD Daliresp 500 mcg p.o. daily AYAD Crestor 20 mg p.o. bedtime AYAD Dyazide one cap p.o. daily AYAD (discontinued) MEDICATION CHANGES: Do not take your Hydralazine HCL Note the increase in your Xanax to 0.25 mg twice daily as needed Note that your Clonidine HCL is 0.1 mg twice daily scheduled instead of if needed Note that the increase in your Lexapro to 20 mg daily Note the increase in your Micro-K to 10 mEq daily Do not take your Prednisone as scheduled see new directions below NEW PRESCRIPTIONS: Lexapro 20 mg take one tablet by mouth daily Clonidine HCL 0.1 mg take one tablet by mouth twice daily Micro K 10 mEq take one capsule by mouth daily Omnicef 300 mg take one capsule by mouth twice daily for 7 days Minoxidil 5 mg take one tablt by mouth daily Prednisone 10 mg take two tablets (20 mg) by mouth daily for 3 days then one tablet 10 mg by mouth daily for four days then stop. This medication with food. DIET INSTRUCTIONS: Healthy Heart ACTIVITY: Get plenty of rest at home. Gradually increase your activity level according to your toleration. SMOKING: Current every day smoker - the patient has been provided information/education regarding smoking cessation. She is acutely aware of the added risk continuation causes to her cardipulmonary health. She is aware of the benefit of complete cessation would produce. She has not verbalized her intention to cut down or stop. She would benefit from continued education and encouragement for complete cessation in the outpatient setting. DISEASE SPECIFIC EDUCATION: COPD Anemia Hypertension Hypokalemia Anxiety Home medications and changes New prescriptions Follow up Activity Risks of steroid use HOSPITAL COURSE: This is a 71-year-old white female who presented to the emergency room with shortness of breath. She has a long history of COPD. She was in mild respiratory distress. She has chronic respiratory failure. She is a long-term heavy smoker. She has a history of anemia as well as hypokalemia. She also has a long history of noncompliance with her medications. ABGs were abnormal on admission. Chest x-ray showed changes associated with COPD. No pneumonia. She was admitted, placed on Solu-Medrol 125 mg IV q.6hr along with started on Rocephin 1 gm IV daily. Her potassium supplements were continued. Once her breathing became under control within 24 to 48 hours, we then began experiencing problems with labile hypertension. She was having blood pressures up 220/110 being her highest. We increased her Cozaar, increased her Apresoline all with no significant response. The patient then started experiencing panic attacks which she felt like she couldn't breathe. There was no respiratory involvement other than her chronic COPD; it was felt that this was totally related to anxiety. Her blood pressure has now been well-controlled for the past 48 hours with the use of Minoxidil. Her Hydralazine was discontinued and Minoxidil 5 mg twice a day has worked significantly well. Also due to her increasing anxiety and panic attacks we have increased her Lexapro to 20 mg and also increased her Xanax to 0.25 mg t.i.d. For the past two days she has been on Prednisone 20 mg daily p.o. from the Solu-Medrol which she has tolerated well. She has also been on Omnicef p.o. for the past four days which she has also tolerated well. She will be discharged home today in stable condition. Her pulse ox is 99% on 2L. She has been afebrile. Her blood pressure has been well- controlled. SHe did experience some hypokalemia yesterday which we increased her potassium to 10 mEq daily. Her hemoglobin has stayed stable at 10.9. She has had no fever. Blood pressure is 135/52 today. She was provided with information regarding smoking cessation and this was discussed at great length with her regarding the progression of her COPD and her long-term prognosis if she continues to smoke. She is going to go home. She has neb treatments at home as well as oxygen at home. She will be given Clonidine 0.1 mg and she can take an extra p.r.n. if needed. She will continue with the increased Cozaar. She will continue with Minoxidil as the Hydralazine has been discontinued. She will also go home on 10 mEq of potassium daily. Again, it seems that she has responded well to treatment, shortness of breath has resolved. She is in no distress and blood pressure is under control. Will followup with her next week in the office. TIME SPENT: More than 60 minutes. KEVIN
== END 2017-04-08 13:10 | disposition home or self-care (01) | DRG 191 ==
LOC: ED 17:19 → MEDSURG B 19:02
PROVIDERS: ADMIT Internal Medicine; ATTEND Internal Medicine
PROC: 30233N1 Transfusion of Nonautologous Red Blood Cells into Peripheral Vein, Percutaneous Approach (ICD-10-PCS; principal; 2017-04-02)
DX: J44.1 Chronic obstructive pulmonary disease with (acute) exacerbation (principal); J96.10 Chronic respiratory failure, unspecified whether with hypoxia or hypercapnia; B37.0 Candidal stomatitis; I10 Essential (primary) hypertension; D64.9 Anemia, unspecified; I51.7 Cardiomegaly; R91.1 Solitary pulmonary nodule; G62.9 Polyneuropathy, unspecified; I71.4 Abdominal aortic aneurysm, without rupture; I70.1 Atherosclerosis of renal artery; I65.29 Occlusion and stenosis of unspecified carotid artery; E78.5 Hyperlipidemia, unspecified; F32.9 Major depressive disorder, single episode, unspecified; M19.90 Unspecified osteoarthritis, unspecified site; M47.9 Spondylosis, unspecified; F41.0 Panic disorder [episodic paroxysmal anxiety]; E87.6 Hypokalemia; T38.0X5A Adverse effect of glucocorticoids and synthetic analogues, initial encounter; R05 Cough; R53.1 Weakness; R53.81 Other malaise; F17.200 Nicotine dependence, unspecified, uncomplicated; Z91.14 Patient's other noncompliance with medication regimen; Z79.899 Other long term (current) drug therapy
CPT/HCPCS: 36415; 36430; 76770; 80053; 82803; 85014; 85018; 85025; 86850; 86900; 86922; 87081; 87804; 93005; 93010; 94640; 96361; 96374; 97802; 99284; 99285

== ENCOUNTER 2017-04-14 09:35 | Inpatient (IN) ==
[2017-04-14] MEDS ORDERED: SOLU-MEDROL 125 MG IVP STA (09:39)
[2017-04-14] MEDS ORDERED: DUONEB NEB STA (09:39)
[2017-04-14] MEDS ORDERED: SODIUM CHLORIDE 500 ML IV STA (09:53)
--- NOTE | 2017-04-14 13:35 | CT ---
EXAM: CT BRAIN HISTORY: Altered mental status, poor arterial blood gas TECHNIQUE: CT brain without intravenous contrast. 5-mm axial sections with Reformations. COMPARISON: 11/03/2016 FINDINGS: There is mild generalized atrophy. There is mild to moderate periventricular and deep white matter lo w attenuation which although nonspecific is suggestive of chronic microvascular ischemic change. Ath erosclerotic disease is noted. These findings are stable. Brain otherwise is unremarkable without distinct evidence of hemorrhage or large vessel distribution recent ischemic infarction. There is no suggestion of acute hydrocephalus or subdural fluid collecti on. No mass or mass effect. Cranium is within normal limits. Mastoid processes are aerated. The visualized paranasal sinuses a re clear. IMPRESSION: No acute intracranial process identified.
--- NOTE | 2017-04-14 13:43 | CT ---
Exam: CT of the chest without intravenous contrast. Comparison: Chest x-ray performed on 04/05/2017. Reason for exam: Short of air. FINDINGS: Emphysematous disease is seen throughout the lung parenchyma without pneumothorax. Old gr anulomas disease is seen within the mediastinum and lung parenchyma. Consolidation in the left lower lobe consistent with atelectasis or pneumonia. Image interpretation is limited by the lack of intravenous contrast administration. Atherosclerotic disease is seen within the aorta and distal arterial vasculature. Prominent appearing mediastinal lymph nodes measuring up to 1.6 cm incompletely evaluated without int ravenous contrast. Partially imaged vascular graft in the upper abdomen. No suspicious appearing osteoblastic or osteolytic lesions. Degenerative disease is seen in the thoracic spine. Impression: 1. Emphysematous disease is seen throughout the lung parenchyma. 2. Consolidation in the left lower lobe likely atelectasis or pneumonia. 3. Prominent appearing mediastinal lymph nodes incompletely evaluated without intravenous contrast. Recommend follow up imaging to document stability / resolution. 4. No pneumothorax or pleural effusion.
--- NOTE | 2017-04-14 13:44 | CT ---
EXAM: CT abdomen pelvis without contrast HISTORY: Pain COMPARISON: 12/08/2016 TECHNIQUE: CT abdomen pelvis performed without intravenous contrast. Coronal and sagittal reformatt ed images obtained. The FINDINGS: Please refer to separate report CT chest regarding findings in the lower chest. No free a ir. No acute abnormalities of the bones. Degenerative change in the spine. Evaluation organ parenc hyma limited without contrast. Liver unremarkable. Gallbladder unremarkable. Pancreas unremarkable . Granulomatous calcification in the spleen. Spleen otherwise unremarkable. Adrenals unremarkable. No hydronephrosis or nephrolithiasis. Small stable bilateral renal cysts. Bladder unremarkable. Extensive atherosclerosis. Aortic bi-iliac stent. Bladder unremarkable. Patient status post hyster ectomy. No lymphadenopathy or ascites. Minimal fat-containing umbilical hernia. Mild chronic nonsp ecific mesenteric haziness appears unchanged. Stomach appears normal. No dilated loops small bowel. Appendix appears normal. Colon unremarkable. IMPRESSION: 1. No acute abnormality identified in the abdomen or pelvis. 2. Extensive atherosclerosis. Aortic iliac stent. 3. Mild chronic nonspecific haziness in the abdominal mesentery, unchanged
--- NOTE | 2017-04-14 13:46 | CT ---
EXAM: CT cervical spine. HISTORY: Neck, bruising, remote injury. TECHNIQUE: CT cervical spine without contrast. Detailed axial sections. Coronal and sagittal re-fo rmations. COMPARISON: Comparison may be made to CT neck dated 10/22/2016. FINDINGS: The bones appear demineralized. No acute fracture or subluxation is identified. Normal vertebral ranjit dy height. Facet joints are covered. Lateral masses of C1 and C2 are normally aligned and the odon toid process is intact. Diffuse degenerative disc and facet disease is present leading to multilevel central canal and neural foraminal stenosis most apparent at C6/C7 (probable moderate central canal stenosis). The discs are poorly seen by CT. If there are focal neurologic deficits or new neurologi c findings, correlation with MRI can be considered. There is no paraspinal hematoma or fluid collect ion.. Incidental findings include atherosclerotic disease. IMPRESSION: 1. No acute fracture or subluxation. 2. Multilevel degenerative disc and facet disease most apparent at C6/C7. Findings appear grossly s table since prior CT neck. The discs are poorly seen by CT. If there are focal neurologic deficits or new neurologic findings, correlation with MRI can be considered.
--- NOTE | 2017-04-14 14:58 | US ---
EXAM: ULTRASOUND LOWER EXTREMITY VENOUS DOPPLER EXAM HISTORY: High D-dimer, leg pain. FINDINGS: Bilateral lower extremity venous Doppler exam. Real time rowe-scale, Doppler spectral anal ysis and color-flow Doppler imaging performed. The veins targeted for evaluation include the common femoral, greater saphenous, profundus, femoral, popliteal, peroneal, anterior tibial and posterior ti bial. The evaluated veins demonstrated normal spontaneous flow and compression without evidence of thrombosis. Incidental popliteal fossa fluid collection measuring 6.0 x 1.2 x 1.1 cm most consistent with a Alford 's cyst. IMPRESSION: 1. No DVT. 2. Alford's cyst.
[2017-04-14] MEDS ORDERED: DEXTROSE 5%-NS IV SOLUTION 1,000 ML IV STA (15:13)
[2017-04-14] MEDS ORDERED: VANCOMYCIN 1,000 MG in SODIUM CHLORIDE 200 ML IV STA (15:13)
--- NOTE | 2017-04-14 15:23 | ED.PDOC ---
General ED Provider: Dr. CHEN SHAIKH Chief Complaint: Shortness of Air Stated Complaint: shortness of breath Time Seen by Physician: 09:40 (respiratory distress per order pt is not to be intubated ) Information Source: Patient, Family, EMT Exam Limitations: No limitations Primary Care Provider: SIDDHARTHA BRITO Referred to ED by: Other (recently was hospitalized denied chest pain brused abdomen was present during last visit photos attached ) Nursing and Triage Documentation Reviewed and Agree: Yes Reviewed sepsis parameters & appropriate labs ordered?: Yes (denied chest pain) System Inflammatory Response Syndrome: Pulse >90 BPM Sepsis Protocol: For patient's 13 years and over: Temp is 96.8 and below OR 101 and greater Pulse >90 BPM Resp >20/minute Acutely Altered Mental Status Are patient's symptoms suggestive of a new infection, such as: -Pneumonia -Skin, Soft Tissue -Endocarditis -UTI -Bone, Joint Infection -Implantable Device -Acute Abdominal Infection -Wound Infection -Meningitis -Blood Stream Catheter Infection -Unknown Respiratory Complaint Exam - Respiratory Complaint/Exam Onset/Duration: today Symptoms Are: Still present Timing: Constant Initial Severity: Severe Current Severity: Severe Location: Chest Character: Reports: Non-productive cough Aggravating: Reports: None Alleviating: Reports: Spontaneous resolution Associated Signs and Symptoms: Reports: Dyspnea. Denies: Rapid breathing, Fever , Chills, Chest pain, Pleuritic chest pain, Wheezing, Hemoptysis, Dizziness, Calf pain, Calf swelling, Edema, URI, Nasal congestion, Hoarseness, Sinus discomfort, Vomiting, Sore throat, Weight loss, Decreased oral intake, Increased thirst, Increased appetite, Increased urination Related History: Reports: Similar episode History of Healthcare-Acquired Pneumonia: No Related Surgical History: Reports: None Pulmonary Embolism Risk Factors: Bedrest Pseudomonas Risk Factors: Reports: Chronic Lung Disease Tuberculosis Risk Factors: Reports: Chronic Resp. Faliure Status Asthmaticus Risk Factors: Reports: None Home Oxygen Use: No Recent Stress Test: No Recent Echo/LV Function: No Current Antibiotic Use: No Current Asthma Medication Use: No Respiratory Distress: None Inadequate Respiratory Effort: No Dysphagia Present: No Stridor Present: No JVD Present: No Retractions: Not Present Diminished Breath Sounds: Yes Sinus Tenderness: None Differential Diagnoses: Asthma, CHF, Pulmonary Edema, COPD Exacerbation, Pneumonia, Bronchitis Non-Traumatic Chest Pain Syncope: EKG Performed Review of Systems - Review Of Systems Constitutional: Reports: Chills, Malaise Eyes: Reports: No symptoms Ears, Nose, Mouth, Throat: Reports: No symptoms Respiratory: Reports: Cough Cardiac: Reports: No symptoms GI: Reports: No symptoms : Reports: No symptoms Musculoskeletal: Reports: No symptoms Skin: Reports: No symptoms Neurological: Reports: No symptoms Endocrine: Reports: No symptoms Hematologic/Lymphatic: Reports: No symptoms All Other Systems: Reviewed and Negative Past Medical History - Past Medical History Previously Healthy: Yes Endocrine: Reports: Dyslipidemia Cardiovascular: Reports: CAD, Hypertension, Other (PAD) Respiratory: Reports: COPD Hematological: Reports: None Gastrointestinal: Reports: None Genitourinary: Reports: None Neuro/Psych: Reports: Anxiety, Depression Musculoskeletal: Reports: Arthritis, Back Pain, Joint Pain Cancer: Reports: None Last Menstrual Period: na - Surgical History General Surgical History: Reports: Hysterectomy, Stent Placement - Family History Family History: Reports: Unknown - Social History Smoking Status: Current some day smoker Hx Substance Use: No Alcohol Screening: Occasionally - Immunizations Tetanus Shot up to Date: No Physical Exam - Physical Exam Appearance: Ill-appearing Ill-appearing: Severe Pain Distress: Severe Eyes: ARIEL, EOMI, Conjunctiva clear ENT: Ears normal, Nose normal, Oropharynx normal Respiratory: Airway patent, Breath sounds diminished, Rhonchi, Wheezes Cardiovascular: RRR, Pulses normal, No rub, No murmur GI/: Soft, Nontender (brused anterior abdominal wall photos submitted ), No masses, Bowel sounds normal, No Organomegaly Musculoskeletal: Normal strength, ROM intact, No edema, No calf tenderness Skin: Warm, Dry, Normal color Neurological: Sensation intact, Motor intact, Reflexes intact, Cranial nerves intact, Alert, Oriented Psychiatric: Affect appropriate, Mood appropriate Interpretation - Pig Machine Supervisor Rate: Normal Rhythm: Sinus - EKG Interpretation Rate: Normal Rhythm: Sinus (wellen T WAVES V2,3) Physician Notification - Case Discussed Physician Notified: PMD Time of Notification: 15:27 (ALL LABS AND IMAGING COPIES GIVEN TO PMD ADVISED TO BE ADMITTED TO SCU ) Admit To: Inpatient, SCU Critical Care Note - Critical Care Note Total Time (mins): 0 Course - Course Hematology/Chemistry: 04/14/17 09:46 04/14/17 09:46 Orders, Labs, Meds: Lab Review 04/14/17 04/14/17 04/14/17 09:30 09:45 09:45 WBC RBC Hgb Hct MCV MCH MCHC RDW Coeff of Tr Plt Count Immature Gran % (Auto) Neut % (Auto) Lymph % (Auto) [place] % (Auto) Eos % (Auto) Baso % (Auto) Immature Gran # (Auto) Neut # Lymph # Bacon # Eos # Baso # D-Dimer (Manual) Puncture Site L rad O2 Saturation 85.0 L ABG pH 7.288 L* ABG pCO2 79.9 H ABG pO2 58.0 L* ABG HCO3 38.2 H ABG Total CO2 41 H ABG Base Excess 12 H Miki Test + O2 Delivery Device Nc Oxygen Liter Flow 3.00 FiO2 % Sodium Potassium Chloride Carbon Dioxide Anion Gap BUN Creatinine Estimated GFR (MDRD) BUN/Creatinine Ratio Glucose Lactic Acid Calcium Total Bilirubin AST ALT Alkaline Phosphatase Total Creatine Kinase Troponin I B-Natriuretic Peptide 268 H Total Protein Albumin Globulin Albumin/Globulin Ratio Procalcitonin 0.17 Influenza A (Rapid) Influenza B (Rapid) 04/14/17 04/14/17 04/14/17 09:45 09:46 09:46 WBC 10.51 H RBC 3.09 L Hgb 9.3 L Hct 28.7 L MCV 92.9 MCH 30.1 MCHC 32.4 RDW Coeff of Tr 15.1 H Plt Count 99 L Immature Gran % (Auto) 0.8 Neut % (Auto) 84.3 Lymph % (Auto) 4.0 L [place] % (Auto) 10.0 Eos % (Auto) 0.9 Baso % (Auto) 0.0 Immature Gran # (Auto) 0.1 Neut # 8.9 H Lymph # 0.4 L Bacon # 1.1 Eos # 0.1 Baso # 0.0 D-Dimer (Manual) 710.50 Puncture Site O2 Saturation ABG pH ABG pCO2 ABG pO2 ABG HCO3 ABG Total CO2 ABG Base Excess Miki Test O2 Delivery Device Oxygen Liter Flow FiO2 % Sodium 138 Potassium 4.6 Chloride 94 L Carbon Dioxide 39 H Anion Gap 9.6 BUN 42 H Creatinine 2.72 H Estimated GFR (MDRD) 17.00 BUN/Creatinine Ratio 15.44 Glucose 166 H Lactic Acid Calcium 9.5 Total Bilirubin 0.3 AST 11 L ALT 20 Alkaline Phosphatase 45 L Total Creatine Kinase 19 Troponin I 0.0520 B-Natriuretic Peptide Total Protein 5.6 L Albumin 3.1 L Globulin 2.5 Albumin/Globulin Ratio 1.24 Procalcitonin Influenza A (Rapid) Influenza B (Rapid) 04/14/17 04/14/17 04/14/17 09:50 10:00 10:44 WBC RBC Hgb Hct MCV MCH MCHC RDW Coeff of Tr Plt Count Immature Gran % (Auto) Neut % (Auto) Lymph % (Auto) [place] % (Auto) Eos % (Auto) Baso % (Auto) Immature Gran # (Auto) Neut # Lymph # [place] # Eos # Baso # D-Dimer (Manual) Puncture Site Lrad O2 Saturation 99.0 ABG pH 7.210 L* ABG pCO2 95.0 H ABG pO2 149.0 H ABG HCO3 38 H ABG Total CO2 41 H ABG Base Excess 10 H Miki Test + O2 Delivery Device bipap Oxygen Liter Flow 15.00 FiO2 % 50.0 Sodium Potassium Chloride Carbon Dioxide Anion Gap BUN Creatinine Estimated GFR (MDRD) BUN/Creatinine Ratio Glucose Lactic Acid 4.5 Calcium Total Bilirubin AST ALT Alkaline Phosphatase Total Creatine Kinase Troponin I B-Natriuretic Peptide Total Protein Albumin Globulin Albumin/Globulin Ratio Procalcitonin Influenza A (Rapid) Negative by naat Influenza B (Rapid) Negative by naat 04/14/17 04/14/17 11:25 14:45 WBC RBC Hgb Hct MCV MCH MCHC RDW Coeff of Tr Plt Count Immature Gran % (Auto) Neut % (Auto) Lymph % (Auto) [place] % (Auto) Eos % (Auto) Baso % (Auto) Immature Gran # (Auto) Neut # Lymph # [place] # Eos # Baso # D-Dimer (Manual) Puncture Site Lbrach R brach O2 Saturation 92.0 L 95.0 ABG pH 7.263 L* 7.284 L* ABG pCO2 85.0 H 79.3 H ABG pO2 79.0 L 91.0 ABG HCO3 38.4 H 37.6 H ABG Total CO2 41 H 40 H ABG Base Excess 11 H 11 H Miki Test + O2 Delivery Device Bipap Bipap Oxygen Liter Flow 15.00 FiO2 % 36.0 36.0 Sodium Potassium Chloride Carbon Dioxide Anion Gap BUN Creatinine Estimated GFR (MDRD) BUN/Creatinine Ratio Glucose Lactic Acid Calcium Total Bilirubin AST ALT Alkaline Phosphatase Total Creatine Kinase Troponin I B-Natriuretic Peptide Total Protein Albumin Globulin Albumin/Globulin Ratio Procalcitonin Influenza A (Rapid) Influenza B (Rapid) Orders Category Date Time Status ADMIT PATIENT INPATIENT .TO SCU (MONITORED BED) ADMISSION 04/14/17 15:10 Active ABG DRAW REQUEST DAILY@0600 CARDIO 04/15/17 06:00 Ordered ABG DRAW REQUEST DAILY@0600 CARDIO 04/16/17 06:00 Ordered ABG DRAW REQUEST DAILY@0600 CARDIO 04/17/17 06:00 Ordered ABG DRAW REQUEST DAILY@0600 CARDIO 04/18/17 06:00 Ordered ABG DRAW REQUEST Stat CARDIO 04/14/17 09:41 Completed ABG DRAW REQUEST Stat CARDIO 04/14/17 10:44 Completed ABG DRAW REQUEST Stat CARDIO 04/14/17 11:25 Completed ABG DRAW REQUEST Stat CARDIO 04/14/17 14:42 Completed BIPAP Routine CARDIO 04/14/17 09:41 Active EKG-(ED ONLY) Stat CARDIO 04/14/17 09:39 Completed EKG-(IP & OP ONLY) DAILY CARDIO 04/15/17 06:00 Ordered EKG-(IP & OP ONLY) DAILY CARDIO 04/16/17 06:00 Ordered EKG-(IP & OP ONLY) DAILY CARDIO 04/17/17 06:00 Ordered NEBULIZER TREATMENT Stat CARDIO 04/14/17 09:39 Completed ACTIVITY .Complete BR CARE 04/14/17 15:10 Active BLOOD GLUCOSE MONITORING ACCUCHECK Q6H CARE 04/14/17 15:10 Active INTAKE & OUTPUT Q8HR CARE 04/14/17 15:10 Active TELEMETRY MONITORING TELE CARE 04/14/17 15:11 Active VITAL SIGNS Q4HR CARE 04/14/17 15:10 Active NOTHING BY MOUTH DIETARY 04/14/17 Dinner Ordered ED IV/MEDIPORT/POWERPORT .ONCE EMERGENCY 04/14/17 09:39 Active ABG DAILY@0600 LAB 04/15/17 06:00 Ordered ABG DAILY@0600 LAB 04/16/17 06:00 Ordered ABG DAILY@0600 LAB 04/17/17 06:00 Ordered ABG DAILY@0600 LAB 04/18/17 06:00 Ordered ABG Stat LAB 04/14/17 09:30 Completed ABG Stat LAB 04/14/17 10:44 Completed ABG Stat LAB 04/14/17 11:25 Completed ABG Stat LAB 04/14/17 14:45 Completed B-TYPE NATRIURETIC PEPTIDE Stat LAB 04/14/17 09:45 Completed BLOOD CULTURE Stat LAB 04/14/17 10:25 Ordered CBC W/ AUTO DIFF DAILY@0600 LAB 04/15/17 06:00 Ordered CBC W/ AUTO DIFF DAILY@0600 LAB 04/16/17 06:00 Ordered CBC W/ AUTO DIFF Stat LAB 04/14/17 09:46 Completed COMPREHENSIVE METABOLIC PANEL DAILY@0600 LAB 04/15/17 06:00 Ordered COMPREHENSIVE METABOLIC PANEL DAILY@0600 LAB 04/16/17 06:00 Ordered COMPREHENSIVE METABOLIC PANEL Stat LAB 04/14/17 09:46 Completed CREATINE KINASE Q8H LAB 04/14/17 21:15 Ordered CREATINE KINASE Q8H LAB 04/15/17 05:15 Ordered CREATINE KINASE Stat LAB 04/14/17 09:46 Completed D-DIMER Stat LAB 04/14/17 09:45 Completed LACTIC ACID Stat LAB 04/14/17 10:00 Completed MOLECULAR FLU A/B Stat LAB 04/14/17 09:50 Completed MOLECULAR GROUP A STREP Stat LAB 04/14/17 09:50 Results PROCALCITONIN Stat LAB 04/14/17 09:45 Completed STREP SCREEN Stat LAB 04/14/17 09:50 Results TROPONIN I Q8H LAB 04/14/17 21:15 Ordered TROPONIN I Q8H LAB 04/15/17 05:15 Ordered TROPONIN I Stat LAB 04/14/17 09:46 Completed 0.9 % Sodium Chloride [Saline Flush] MEDS 04/14/17 09:38 Active 1 syr IVF PRN PRN Aspirin [Aspirin Chewable] MEDS 04/15/17 09:00 Ordered 81 mg PO DAILY Carvedilol [Coreg] MEDS 04/14/17 17:30 Ordered 25 mg PO BIDWM Ceftriaxone Sodium [Rocephin] 1 gm MEDS 04/14/17 15:30 Ordered 0.9 % Sodium Chloride [Sodium Chloride] 50 ml IV DAILY Cilostazol [Pletal] MEDS 04/14/17 17:00 Ordered 100 mg PO BIDAC Dextrose 5 % and 0.9 % NaCl [Dextrose 5%-Ns IV Solution MEDS 04/14/17 15:30 Active ] 1,000 ml IV 83 mls/hr Dextrose 5 % and 0.9 % NaCl [Dextrose 5%-Ns IV Solution MEDS 04/14/17 15:13 Active ] 1,000 ml IV BOLUS Ipratropium/Albuterol Neb [Duoneb] MEDS 04/14/17 09:39 Discontinued 1 vial NEB ONCE STA Levofloxacin/D5w [Levaquin] 500 mg MEDS 04/15/17 09:00 Ordered Premix 100 ml D5w 1 bag IV DAILY Losartan Potassium MEDS 04/15/17 09:00 Ordered 50 mg PO DAILY Methylprednisolone Sod Succ/Pf [Solu-Medrol 125 mg] MEDS 04/14/17 09:39 Discontinued 125 mg IVP ONCE STA Methylprednisolone Sod Succ/Pf [Solu-Medrol 40 mg] MEDS 04/14/17 21:00 Ordered 60 mg IVP Q12HR Minoxidil MEDS 04/14/17 21:00 Ordered 5 mg PO BID Potassium Chloride [Micro-K Cap] MEDS 04/15/17 09:00 Ordered 10 meq PO DAILY Sodium Chloride 0.9% [Sodium Chloride] 500 ml MEDS 04/14/17 09:53 Discontinued IV BOLUS Triamterene/Hydrochlorothiazid [Dyazide] MEDS 04/15/17 09:00 Ordered 1 cap PO DAILY Vancomycin HCl [Vancomycin] 1,000 mg MEDS 04/14/17 15:13 Active 0.9 % Sodium Chloride [Sodium Chloride] [address] ABDOMEN/PELVIS WO CONTRAST Stat RADS 04/14/17 09:[address] CERVICAL SPINE W/O CONTRAST Stat RADS 04/14/17 09:[address] CHEST W/O CONTRAST Stat RADS 04/14/17 09:[address] HEAD W/O CONTRAST Stat RADS 04/14/17 09:52 Completed U/S VENOUS SCAN KAITLYNN LEGS Stat RADS 04/14/17 12:14 Completed Medications Generic Name Dose Route Start Last Admin Trade Name Freq PRN Reason Stop Dose Admin Aspirin 81 mg 04/15/17 09:00 Aspirin Chewable PO DAILY AYAD Cilostazol 100 mg 04/14/17 17:00 Pletal PO BIDAC AYAD Ceftriaxone Sodium 1 gm/ 50 mls @ 75 mls/hr 04/14/17 15:30 Sodium Chloride IV DAILY AYAD Levofloxacin/Dextrose 500 mg/ 100 mls @ 100 mls/hr 04/15/17 09:00 Dextrose IV DAILY AYAD Vancomycin HCl 1,000 mg/ 200 mls @ 100 mls/hr 04/14/17 15:13 Sodium Chloride IV 04/14/17 17:12 ONCE STA Dextrose/Sodium Chloride 1,000 mls @ 83 mls/hr 04/14/17 15:13 Dextrose 5%-Ns Iv Solution IV 04/15/17 03:15 BOLUS STA Dextrose/Sodium Chloride 1,000 mls @ 83 mls/hr 04/14/17 15:30 Dextrose 5%-Ns Iv Solution IV .Q12H3M AYAD Methylprednisolone Sodium Succinate 60 mg 04/14/17 21:00 Solu-Medrol 40 Mg IVP Q12HR AYAD Non-Formulary Medication 25 mg 04/14/17 17:30 Carvedilol [Coreg] PO BIDWM YAAD Non-Formulary Medication 50 mg 04/15/17 09:00 Losartan Potassium PO DAILY AYAD Sodium Chloride 1 syr 04/14/17 09:38 Saline Flush IVF PRN PRN To flush IV Discontinued Medications Generic Name Dose Route Start Last Admin Trade Name Freq PRN Reason Stop Dose Admin Albuterol/Ipratropium 1 vial 04/14/17 09:39 04/14/17 10:47 Duoneb NEB 04/14/17 09:40 1 vial ONCE STA Administration Sodium Chloride 500 mls @ 500 mls/hr 04/14/17 09:53 04/14/17 10:31 Sodium Chloride IV 04/14/17 10:52 500 mls/hr BOLUS STA Administration Methylprednisolone Sodium Succinate 125 mg 04/14/17 09:39 04/14/17 09:35 Solu-Medrol 125 Mg IVP 04/14/17 09:40 125 mg ONCE STA Administration Vital Signs: Temp Pulse Resp BP Pulse Ox 04/14/17 10:49 99 04/14/17 09:38 96.8 F L 98 H 16 100/44 L 84 L Departure - Departure Time of Disposition: 15:28 (ADMITTED ) Disposition: ADMITTED INPATIENT Discharge Problem: Respiratory failure Qualifiers: Chronicity: unspecified Instructions: Chronic Kidney Disease (ED) Condition: Good Pt referred to PMD for follow-up: Yes Allergies/Adverse Reactions: Allergies No Known Allergies Allergy (Verified 03/31/17 17:29) Home Medications: Ambulatory Orders Cilostazol [Pletal] 100 mg PO BIDAC 12/09/12 Cyanocobalamin (Vitamin B-12) [B-12] 500 mcg PO DAILY 12/09/12 Roflumilast [Daliresp] 500 mcg PO DAILY 03/29/15 Ferrous Gluconate 324 mg PO BID 06/17/15 Duloxetine HCl [Cymbalta] 60 mg PO DAILY 06/18/15 Rosuvastatin Calcium [Crestor] 20 mg PO BEDTIME 12/27/15 Arformoterol Tartrate [Brovana] 1 vial IH Q12H PRN 05/27/16 Aspirin 81 mg PO DAILY 05/27/16 Carvedilol [Coreg] 25 mg PO BIDWM 05/27/16 Cholecalciferol (Vitamin D3) [Vitamin D3] 400 unit PO DAILY 05/27/16 Triamterene/Hydrochlorothiazid [Dyazide] 1 cap PO DAILY 05/27/16 Pregabalin [Lyrica] 50 mg PO BID #60 capsule 06/01/16 Tiotropium Br/Olodaterol HCl [Stiolto Respimat Inhal [place]] 2.5 mcg IH DAILY 07/03 Losartan Potassium [Cozaar] 50 mg PO DAILY #30 tablet 11/09/16 Hydrocodone Bit/Acetaminophen [Lortab 10-500] 1 tab PO TID PRN 03/20/17 Alprazolam [Xanax] 0.25 mg PO TID PRN #90 tablet 04/08/17 Cefdinir [Omnicef] 300 mg PO Q12HR #14 capsule 04/08/17 Clonidine HCl 0.1 mg PO BID #60 tablet 04/08/17 Escitalopram Oxalate [Lexapro] 20 mg PO DAILY #30 tablet 04/08/17 Minoxidil 5 mg PO BID #60 tablet 04/08/17 Potassium Chloride [Micro-K Cap] 10 meq PO DAILY #30 capsule.er 04/08/17
[2017-04-14] MEDS ORDERED: DEXTROSE 5%-NS IV SOLUTION 1,000 ML IV SCH (15:30)
[2017-04-14] MEDS ORDERED: VANCOMYCIN ONE ×2 (15:32→23:49)
[2017-04-14 16:41] VITALS: BMI 22.8
[2017-04-14] MEDS ORDERED: NON-FORMULARY MEDICATION (Hydrocodone Bit/Acetaminophen 1 TAB) PO PRN (17:18)
[2017-04-14] MEDS ORDERED: NON-FORMULARY MEDICATION (Carvedilol [Coreg] 25 MG) PO SCH (17:30)
[2017-04-14] MEDS: DEXTROSE 5%-1/2NS IV SOLUTION 1,000 ML IV SCH (17:56)
[2017-04-14] MEDS: ROCEPHIN 1 GM in SODIUM CHLORIDE 50 ML IV SCH (17:56)
[2017-04-14] MEDS: COREG PO SCH (18:35)
[2017-04-14] MEDS: PLETAL PO SCH (18:35)
[2017-04-14] MEDS: SOLU-MEDROL 125 MG IVP SCH (18:36)
[2017-04-14] MEDS ORDERED: SOLU-MEDROL 125 MG IVP SCH (21:00)
[2017-04-14] MEDS ORDERED: NON-FORMULARY MEDICATION (Ferrous Gluconate [Ferrous Gluconate] 324 MG) PO SCH (21:00)
[2017-04-14] MEDS ORDERED: VANCOMYCIN 500 MG in SODIUM CHLORIDE 100 ML IV SCH (21:00)
[2017-04-14] MEDS ORDERED: SOLU-MEDROL 40 MG IVP SCH (21:00)
[2017-04-14] MEDS ORDERED: ALBUTEROL 0.042% NEB NEB PRN (21:17)
[2017-04-14] MEDS: MINOXIDIL PO SCH (21:54)
[2017-04-14] MEDS ORDERED: FERROUS SULFATE ONE (22:01)
[2017-04-14] MEDS: CRESTOR PO SCH (22:03)
[2017-04-14] MEDS: LYRICA PO SCH (22:03)
[2017-04-14] MEDS: CATAPRES PO SCH (22:03)
[2017-04-14] MEDS: XANAX PO PRN (22:03)
[2017-04-14] MEDS: XOPENEX 1.25 MG NEB SCH (23:05)
[2017-04-14] MEDS ORDERED: XOPENEX 1.25 MG NEB ONE (23:05)
[2017-04-15] MEDS: SOLU-MEDROL 125 MG IVP SCH ×4 (00:31→21:12)
[2017-04-15] MEDS: XOPENEX 1.25 MG NEB SCH ×4 (04:18→22:44)
[2017-04-15] MEDS: PLETAL PO SCH ×2 (05:43→17:43)
[2017-04-15] MEDS ORDERED: XANAX PO STA (08:07)
[2017-04-15] MEDS ORDERED: NON-FORMULARY MEDICATION (Losartan Potassium 50 MG) PO SCH (09:00)
[2017-04-15] MEDS ORDERED: NON-FORMULARY MEDICATION (Duloxetine Hcl [Cymbalta] 60 MG) PO SCH (09:00)
[2017-04-15] MEDS ORDERED: NON-FORMULARY MEDICATION (Cholecalciferol (Vitamin D3) [Vitamin D3] 400 UNIT) PO SCH (09:00)
[2017-04-15] MEDS ORDERED: LEVAQUIN 250 MG in PREMIX 50 ML D5W 1 BAG IV SCH (09:00)
[2017-04-15] MEDS ORDERED: LEVAQUIN 500 MG in PREMIX 100 ML D5W 1 BAG IV SCH (09:00)
[2017-04-15] MEDS ORDERED: NON-FORMULARY MEDICATION (Escitalopram Oxalate [Lexapro] 20 MG) PO SCH (09:00)
--- NOTE | 2017-04-15 09:37 | PCM.PROG ---
Attending Provider: ATTENDING PROVIDER: Dr. SIDDHARTHA BRITO This patient is seen with Rupal Perez, Nurse Practitioner. DATE OF SERVICE: 04/15/17 SUBJECTIVE: This 71 year old WHITE/ F was hospitalized 04/14/17. The patient is sitting on the side of the bed. She is alert but confused. She is anxious. REVIEW OF SYSTEMS: CONSTITUTIONAL: No night sweats. No fatigue, malaise, lethargy. No fever or chills. HEENT: Eyes: No visual changes. No eye pain. No eye discharge. ENT: No runny nose. No epistaxis. No sinus pain. No odynophagia. No congestion. RESPIRATORY: Positive for cough and congestion. No hemoptysis. Positive for shortness of breath. CARDIOVASCULAR: No angina symptoms. No CHF symptoms. No atypical chest pain for CAD. No palpitations. No orthopnea.. GASTROINTESTINAL: No abdominal pain. No nausea or vomiting. No diarrhea or constipation. No hematemesis. No hematochezia. GENITOURINARY: No urgency. No frequency. No dysuria. No hematuria. No obstructive symptoms. No discharge. No pain. No significant abnormal bleeding. MUSCULOSKELETAL: No musculoskeletal pain; no joint swelling. NEUROLOGICAL: Awake, alert, confused. No headache. No neck pain. No syncope. No seizures. No dizziness. PSYCHIATRIC: Anxious. No depression. No suicidal thoughts. No homicidal thoughts. SKIN: No rash. No lesions. No wounds. ENDOCRINE: No unexplained weight loss. No weight gain. HEMATOLOGIC/LYMPHATIC: No anemia. No purpura. No petechiae. No prolonged or excessive bleeding. No palpable lymph nodes. PHYSICAL EXAMINATION: GENERAL: The patient is awake, alert and oriented to person only lying in bed in no distress. VITAL SIGNS: Temperature 99.2 F, Pulse 102, Respiratory Rate 22, BP 159/68, Pulse Ox 96% HEENT: Head normocephalic, atraumatic. Eyes: Extraocular muscles are intact. Pupils are equal, round and reactive to light and accommodation. Ears: No lesions. Nose appeared normal. Throat: No exudate or erythema. NECK: Supple. No JVD, no carotid bruit. No lymphadenopathy or thyromegaly. LUNGS: Severely diminished breath sounds bilaterally. Clear to auscultation. Percussion note normal. Chest symmetrical. HEART: Tachy. S1, S2, no S3. No murmurs. No cyanosis or clubbing. No ascites. Pulses: Dorsalis pedis and posterior tibial pulses +1 to +2 both sides. ABDOMEN: Soft. Non-tender. Bowel sounds active. No CVA tenderness. No mass felt. EXTREMITIES: No edema. Full range of motion of all extremities, equal. NEUROLOGIC: No focal deficit. Cranial nerves II through XII are grossly intact. No headache, no double vision or headache. SKIN: Not dry. Intact. Turgor-normal. LYMPHATIC: No palpable lymph nodes/no lymphedema. MUSCULOSKELETAL: Normal joints with no swelling. Muscle tone is normal. LAB REVIEW: 04/15/17 05:00 04/15/17 05:00 04/15/17 05:52: Puncture Site Rb, O2 Saturation 97.0, ABG pH 7.464 H, ABG pCO2 48.9 H, ABG pO2 90.0, ABG HCO3 35.1 H, ABG Total CO2 37 H, ABG Base Excess 11 H , Miki Test +, O2 Delivery Device Venturi mask, Oxygen Liter Flow 8.00, FiO2 % 40.0 04/15/17 05:00: Sodium 140, Potassium 3.8, Chloride 97 L, Carbon Dioxide 36 H, Anion Gap 10.8, BUN 31 H, Creatinine 1.24 D, Estimated GFR (MDRD) 43.00, BUN/ Creatinine Ratio 25.00, Glucose 167 H, Calcium 9.0, Total Bilirubin 0.4, AST 12 L, ALT 19, Alkaline Phosphatase 46 L, Total Protein 5.5 L, Albumin 3.1 L, Globulin 2.4, Albumin/Globulin Ratio 1.29 04/15/17 05:00: WBC 5.69, RBC 3.03 L, Hgb 8.9 L, Hct 26.9 L, MCV 88.8, MCH 29.4 , MCHC 33.1, RDW Coeff of Tr 14.8, Plt Count 84 L, Immature Gran % (Auto) 0.5, Neut % (Auto) 87.5, Lymph % (Auto) 9.0 L, [place] % (Auto) 3.0, Eos % (Auto) 0.0, Baso % (Auto) 0.0, Immature Gran # (Auto) 0.0, Neut # 5.0, Lymph # 0.5 L, [place] # 0.2 L, Eos # 0.0, Baso # 0.0 04/15/17 05:00: Total Creatine Kinase 22, Troponin I 0.0540 04/14/17 21:20: Total Creatine Kinase 20, Troponin I 0.0480 04/14/17 20:00: Puncture Site Lb, O2 Saturation 95.0, ABG pH 7.49 H, ABG pCO2 43.8, ABG pO2 79.0 L, ABG HCO3 34.9 H, ABG Total CO2 36 H, ABG Base Excess 12 H , Miki Test +, O2 Delivery Device Venturi mask, Oxygen Liter Flow 8.00, FiO2 % 40.0 ASSESSMENT: 1. Acute respiratory failure 2. Acute renal failure improved 3. COPD 4. Anemia PLAN: 1. Xanax 0.5 mg this morning 2. Increase Solu-Medrol to 125 mg q.8hr 3. Decrease IV fluids to 50 mL/hr Plan and coordination of the patient's care discussed in the presence of Litigation Specialist and nurse. CONDITION: Guarded SCRIBED BY: KENISHA FRY [employer] Coating Supervisor scribed while in presence of service performed by Dr. Brito/Rupal Perez APRN on 04/15/17 ([id number])
[2017-04-15] MEDS: CYMBALTA PO SCH (09:53)
[2017-04-15] MEDS: ASPIRIN CHEWABLE PO SCH (09:53)
[2017-04-15] MEDS: LEXAPRO PO SCH (09:54)
[2017-04-15] MEDS: CATAPRES PO SCH ×2 (09:54→21:55)
[2017-04-15] MEDS: DEXTROSE 5%-1/2NS IV SOLUTION 1,000 ML IV SCH ×2 (09:54→11:00)
[2017-04-15] MEDS: COREG PO SCH ×2 (09:54→17:43)
[2017-04-15] MEDS: VITAMIN D PO SCH (09:54)
[2017-04-15] MEDS: DALIRESP PO SCH (09:55)
[2017-04-15] MEDS: MICRO-K CAP PO SCH (09:55)
[2017-04-15] MEDS: DYAZIDE PO SCH (09:55)
[2017-04-15] MEDS: LYRICA PO SCH ×2 (09:55→21:55)
[2017-04-15] MEDS: MINOXIDIL PO SCH ×2 (09:55→21:55)
[2017-04-15] MEDS: FERROUS SULFATE PO SCH ×2 (09:55→21:55)
[2017-04-15] MEDS: ROCEPHIN 1 GM in SODIUM CHLORIDE 50 ML IV SCH (09:55)
[2017-04-15] MEDS: COZAAR PO SCH (09:56)
[2017-04-15] MEDS: NON-FORMULARY MEDICATION (Cyanocobalamin (Vitamin B-12) [B-12] 500 MCG) PO SCH (09:56)
[2017-04-15] MEDS ORDERED: SOLU-MEDROL 125 MG IVP SCH (12:00)
[2017-04-15] MEDS: VANCOMYCIN 500 MG in SODIUM CHLORIDE 100 ML IV SCH (14:13)
[2017-04-15] MEDS: CRESTOR PO SCH (21:55)
[2017-04-16] MEDS: DEXTROSE 5%-1/2NS IV SOLUTION 1,000 ML IV SCH ×3 (02:33→08:55)
[2017-04-16] MEDS: XOPENEX 1.25 MG NEB SCH ×4 (04:53→23:10)
[2017-04-16] MEDS: SOLU-MEDROL 125 MG IVP SCH ×3 (05:07→20:19)
[2017-04-16] MEDS: PLETAL PO SCH ×2 (05:54→17:22)
[2017-04-16] MEDS: ASPIRIN CHEWABLE PO SCH (08:53)
[2017-04-16] MEDS: CYMBALTA PO SCH (08:53)
[2017-04-16] MEDS: NICODERM 21 MG TD SCH (08:53)
[2017-04-16] MEDS: ROCEPHIN 1 GM in SODIUM CHLORIDE 50 ML IV SCH (08:53)
[2017-04-16] MEDS: FERROUS SULFATE PO SCH ×2 (08:54→20:19)
[2017-04-16] MEDS: CATAPRES PO SCH ×2 (08:54→20:18)
[2017-04-16] MEDS: VITAMIN D PO SCH (08:54)
[2017-04-16] MEDS: MICRO-K CAP PO SCH (08:54)
[2017-04-16] MEDS: COZAAR PO SCH (08:54)
[2017-04-16] MEDS: MINOXIDIL PO SCH ×2 (08:54→20:19)
[2017-04-16] MEDS: LEXAPRO PO SCH (08:54)
[2017-04-16] MEDS: COREG PO SCH ×2 (08:54→17:23)
[2017-04-16] MEDS: DYAZIDE PO SCH (08:54)
[2017-04-16] MEDS: LYRICA PO SCH ×2 (08:55→20:19)
[2017-04-16] MEDS: DALIRESP PO SCH (08:55)
--- NOTE | 2017-04-16 09:06 | HP ---
DATE OF SERVICE: 04/14/17 REASON FOR HOSPITALIZATION/HISTORY OF PRESENT ILLNESS: The patient is a 71 year old white female who is a heavy smoker with chronic respiratory failure. She presents to the emergency room complaining of increasing shortness of breath. She had a recent hospitalization for acute respiratory failure as well and she has continued to smoke. 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 Malaise and fatigue. No fever or chills. The patient is in distress. HEENT: Eyes: No visual changes. No eye pain. No eye discharge. ENT: No runny nose. No epistaxis. No sinus pain. No sore throat. No odynophagia. No ear pain. No congestion. RESPIRATORY: Cough, no congestion. No hemoptysis. Shortness of breath. CARDIOVASCULAR: No angina symptoms. No CHF symptoms. No atypical chest pain for CAD. No palpitations. No orthopnea. GASTROINTESTINAL: No abdominal pain. No nausea or vomiting. No diarrhea or constipation. No hematemesis. No hematochezia. Decreased appetite. GENITOURINARY: No urgency. No frequency. No dysuria. No hematuria. No obstructive symptoms. No discharge. No pain. No significant abnormal bleeding. MUSCULOSKELETAL: No musculoskeletal pain. No joint swelling. No arthritis. Generalized weakness. NEUROLOGICAL: No headache. No neck pain. No syncope. No seizures. No dizziness. The patient is somewhat confused. PSYCHIATRIC: Not anxious. No depression. No suicidal thoughts. No homicidal thoughts. SKIN: No rash. No lesions. No wounds. ENDOCRINE: No unexplained weight loss. No weight gain. HEMATOLOGIC/LYMPHATIC: No anemia. No purpura. No petechiae. No prolonged or excessive bleeding. No palpable lymph nodes. PERSONAL/FAMILY/SOCIAL HISTORY: Family History is not pertinent. The patient is current every day, pack per day smoker. She lives at home with her . Denies any illicit drug use. Occasional alcohol use. MEDICATIONS: Pletal 100mg twice a day B12 Daliresp 500mcg daily Ferrous Sulfate 324mg twice a day Cymbalta 60mg daily Crestor 20mg daily Brovana Q 12 PRN Coreg 25mg twice a day Dyazide daily Lyrica 50mg twice a day Stiolto daily Losartan 50mg daily Maxie 10mg three times a day PRN Xanax 0.25mg three times a day PRN Clonidine 0.1mg twice a day Lexapro 10mg daily Minoxidil 5mg twice a day Potassium Chloride 10meq daily ALLERGIES: No known allergies. PHYSICAL EXAMINATION: GENERAL: The patient is ill appearing and in moderate to severe respiratory distress. HEENT: Head normocephalic, atraumatic. Eyes: Extraocular muscles are intact. Pupils are equal, round and reactive to light and accommodation. Ears: No lesions. Nose appeared normal. Throat: No exudate or erythema. NECK: Supple. No JVD, no carotid bruit. No lymphadenopathy or thyromegaly. LUNGS: Severely diminished breath sounds bilaterally with bilateral expiratory and inspiratory rub. Percussion note normal. Chest symmetrical. HEART: Tachycardiac, regular rate and rhythm. S1, S2, no S3. No murmurs. No cyanosis or clubbing. No ascites. Pulses: Dorsalis pedis and posterior tibial pulses +1 to +2 both sides. ABDOMEN: Soft. Nontender. Bowel sounds active times four quadrants. No CVA tenderness. No mass felt. EXTREMITIES: No edema. Full range of motion of all extremities, equal. NEUROLOGIC: No focal deficit. Cranial nerves II through XII are grossly intact. No headache, no double vision or headache. The patient is slightly disoriented likely due to hypoxia. SKIN: Dry, warm, [place]. Intact. Turgor - normal. LYMPHATIC: No palpable lymph nodes/no lymphedema. MUSCULOSKELETAL: Normal joints with no swelling. Muscle tone is normal. Decreased range of motion due to generalized weakness. LABS: Hgb 9.3, hct 28.7,WBC 10.51, plt coun t99, sodium 138, potassium 4.6, BUN 42, creatinine 2.72, plt count 166. Initial ABG's O2 sat 85, pH 7.288, pCO2 79.9, pO2 58, bicarb 38.2, co2 41, bases excess of 12 this is on 3 liters nasal cannula. BNP 268, D-Dimer 710, Influenza A and B are both negative. Due to high D-Dimer bilateral venous scan was negative. Chest x-ray showed no acute processes, change associated with COPD, hyperinflation. ASSESSMENT: 1. Acute respiratory failure 2. Acute renal failure 3. Dehydration 4. COPD Severe oxygen dependent 5. Smoker 6. Hypertension PLAN: 1. Admit to the special care unit 2. Routine telemetry orders 3. IV fluids at 125cc an hour 4. Solu-Medrol 125mg Q 6 hours 5. Vancomycin 500mg Q 12 hours 6. Rocephin 1 gram IV daily 7. CBC and CMP daily 8. Regular diet 9. BiPAP, wean off as tolerated 10. Will follow closely. TIME SPENT: More than 70 minutes. MTDD
[2017-04-16] MEDS: NON-FORMULARY MEDICATION (Cyanocobalamin (Vitamin B-12) [B-12] 500 MCG) PO SCH (09:43)
[2017-04-16] MEDS: VANCOMYCIN 500 MG in SODIUM CHLORIDE 100 ML IV SCH (10:14)
[2017-04-16] MEDS: NORCO 10-325 PO PRN ×2 (12:11→20:19)
--- NOTE | 2017-04-16 14:32 | PN ---
DATE OF SERVICE: 04/14/17 - ADMITTING NOTE SUBJECTIVE: This is a 71-year-old white female seen in the emergency room when she was brought to the emergency room with somnolence and respiratory distress. The patient was in acute respiratory failure with hypercarbia. The patient had respirtory acidosis. Arterial blood gases showing pH 7.21 with p02 of 149 with pc02 of 95 with 99% saturation on 50% FI02 on BIPAP. The patient's initial blood gases showed pc02 of 85 with p02 of 79 with pH of 7.26 with 92% saturation that was also done on BIPAP initially. The patient's lactic acid was normal. Procalcitonin level was normal. CT scan of the chest showed consolidation left lower lobe likely atelectasis or pneumonia. Severe COPD was noted with mediastinal lymph node could be reactive. Hemoglobin was 9.3 with hematocrit of 28. WBC 10,500 with increase in the neutrophils. Creatinine was 2.7 with BUN 42 with acute renal failure. BNP 268 acceptable with kidney failure. CT of the abdomen was nonspecific. No acute findings. CT of the c- spine - DJD of the spine. Initial blood gases on 3L showed p02 of 58, pc02 of 39 with pH of 7.28 with 85% saturation. CT of the brain negative for any acute intracranial process. PHYSICAL EXAMINATION: GENERAL: The patient was sleepy. She recognized me. HEENT: Head normocephalic, atraumatic. Face slightly swollen. Eyes: Extraocular muscles are intact. Pupils are equal, round and reactive to light and accommodation. Ears: No lesions. Nose appeared normal. Throat: No exudate or erythema. NECK: Supple. No JVD, no carotid bruit. No lymphadenopathy or thyromegaly. LUNGS: Decreased breath sounds with mild wheeze. The air entry was very poor. Percussion note normal. Chest symmetrical. HEART: S1, S2, no S3. No murmurs. No cyanosis or clubbing. No ascites. Pulses: Dorsalis pedis and posterior tibial pulses +1 to +2 both sides. ABDOMEN: Soft. Nontender. Bowel sounds active. The patient had abdominal breathing. No CVA tenderness. No mass felt. EXTREMITIES: No edema. Full range of motion of all extremities, equal. NEUROLOGIC: No focal deficit. Cranial nerves II through XII are grossly intact. No headache, no double vision or headache. SKIN: Not dry. Intact. Turgor - normal. LYMPHATIC: No palpable lymph nodes/no lymphedema. MUSCULOSKELETAL: Normal joints with no swelling. Muscle tone is normal. ASSESSMENT: 1. Mental confusion, somnolence likely from respiratory acidosis with hypercarbia. 2. Pneumonia 3. Severe chronic lung disease 4. Heavy smoking 5. Dementia 6. Peripheral arterial disease 7. Hypertension 8. Dyslipidemia 9. Noncompliance PLAN: 1. Put her on BIPAP 2. Last blood gases on BIPAP were much better with pH of 7.28 with 91% saturation with p02 of 91, pc02 79. At that stage the patient would be kept on BIPAP for two hours and later on switched to Venti mask 36%. Arterial blood gases to be repeated after that. The patient's prognosis is not good. The patient will be started on double antibiotics including Vancomycin. She will be on steroids, nebs treatment. Prognosis is poor. The patient wants DNI. PROGNOSIS: Guarded. TIME SPENT (CRITICAL CARE): 1 1/2 hours Plan and coordination of the patient's care discussed in the presence of nurse. KEVIN
--- NOTE | 2017-04-16 15:36 | PCM.PROG ---
Attending Provider: ATTENDING PROVIDER: Dr. SIDDHARTHA BRITO This patient is seen with Rupal Perez, Nurse Practitioner. DATE OF SERVICE: 04/16/17 SUBJECTIVE: This 71 year old WHITE/ F was hospitalized 04/14/17. The patient is lying in bed, alert. ABGs this morning show 94% saturation on 4L ABG's significantly improved. REVIEW OF SYSTEMS: CONSTITUTIONAL: No night sweats. No fatigue, malaise, lethargy. No fever or chills. HEENT: Eyes: No visual changes. No eye pain. No eye discharge. ENT: No runny nose. No epistaxis. No sinus pain. No odynophagia. No congestion. RESPIRATORY: Shortness of breath improved. Cough and congestion. No hemoptysis. CARDIOVASCULAR: No angina symptoms. No CHF symptoms. No atypical chest pain for CAD. No palpitations. No orthopnea.. GASTROINTESTINAL: No abdominal pain. No nausea or vomiting. No diarrhea or constipation. No hematemesis. No hematochezia. GENITOURINARY: No urgency. No frequency. No dysuria. No hematuria. No obstructive symptoms. No discharge. No pain. No significant abnormal bleeding. MUSCULOSKELETAL: No musculoskeletal pain; no joint swelling. NEUROLOGICAL: Awake, alert, oriented to time, place and person. No headache. No neck pain. No syncope. No seizures. No dizziness. PSYCHIATRIC: Not anxious. No depression. No suicidal thoughts. No homicidal thoughts. SKIN: No rash. No lesions. No wounds. ENDOCRINE: No unexplained weight loss. No weight gain. HEMATOLOGIC/LYMPHATIC: No anemia. No purpura. No petechiae. No prolonged or excessive bleeding. No palpable lymph nodes. PHYSICAL EXAMINATION: GENERAL: The patient is awake, alert and oriented, lying in bed in no distress. VITAL SIGNS: Temperature 98.4 F, Pulse 105, Respiratory Rate 18, BP 166/66, Pulse Ox 96% HEENT: Head normocephalic, atraumatic. Eyes: Extraocular muscles are intact. Pupils are equal, round and reactive to light and accommodation. Ears: No lesions. Nose appeared normal. Throat: No exudate or erythema. NECK: Supple. No JVD, no carotid bruit. No lymphadenopathy or thyromegaly. LUNGS: Diminished breath sounds bilaterally. Clear to auscultation. Percussion note normal. Chest symmetrical. HEART: S1, S2, no S3. No murmurs. No cyanosis or clubbing. No ascites. Pulses: Dorsalis pedis and posterior tibial pulses +1 to +2 both sides. ABDOMEN: Soft. Non-tender. Bowel sounds active. No CVA tenderness. No mass felt. EXTREMITIES: No edema. Full range of motion of all extremities, equal. NEUROLOGIC: No focal deficit. Cranial nerves II through XII are grossly intact. No headache, no double vision or headache. SKIN: Not dry. Intact. Turgor-normal. LYMPHATIC: No palpable lymph nodes/no lymphedema. MUSCULOSKELETAL: Normal joints with no swelling. Muscle tone is normal. LAB REVIEW: 04/16/17 04:20 04/16/17 04:20 04/16/17 04:20: Sodium 137, Potassium 3.5, Chloride 98, Carbon Dioxide 35 H, Anion Gap 7.5, BUN 28 H, Creatinine 1.26, Estimated GFR (MDRD) 42.00, BUN/ Creatinine Ratio 22.22, Glucose 159 H, Calcium 8.6, Total Bilirubin 0.3, AST 12 L, ALT 18, Alkaline Phosphatase 37 L, Total Protein 5.1 L, Albumin 2.9 L, Globulin 2.2, Albumin/Globulin Ratio 1.32 04/16/17 04:20: WBC 6.23, RBC 2.70 L, Hgb 8.1 L, Hct 24.0 L, MCV 88.9, MCH 30.0 , MCHC 33.8, RDW Coeff of Tr 15.4 H, Plt Count 87 L, Immature Gran % (Auto) 0.5 , Neut % (Auto) 86.1, Lymph % (Auto) 7.9 L, [place] % (Auto) 5.3, Eos % (Auto) 0.0 , Baso % (Auto) 0.2, Immature Gran # (Auto) 0.0, Neut # 5.4, Lymph # 0.5 L, [place] # 0.3 L, Eos # 0.0, Baso # 0.0 ASSESSMENT: 1. Acute respiratory failure 2. Acute renal failure improved 3. COPD 4. Anemia PLAN: 1. Nicotine patch 2. Smoking cessation discussed 3. ABGs improved 4. Decrease IV fluids to 30 mL/hr Plan and coordination of the patient's care discussed in the presence of [employer] and nurse. CONDITION: Guarded SCRIBED BY: KENISHA FRY, Grain Loader scribed while in presence of service performed by Dr. Brito/Rupal Perez APRN on 04/16/17 ([id number])
[2017-04-16] MEDS: XANAX PO PRN (17:23)
[2017-04-16] MEDS: CRESTOR PO SCH (20:19)
[2017-04-17] MEDS: XOPENEX 1.25 MG NEB SCH ×3 (04:43→17:27)
[2017-04-17] MEDS: SOLU-MEDROL 125 MG IVP SCH ×2 (06:10→22:11)
[2017-04-17] MEDS: PLETAL PO SCH ×2 (06:10→17:32)
[2017-04-17] MEDS: DEXTROSE 5%-1/2NS IV SOLUTION 1,000 ML IV SCH (06:27)
[2017-04-17] MEDS: ASPIRIN CHEWABLE PO SCH (09:22)
[2017-04-17] MEDS: COREG PO SCH ×2 (09:22→17:32)
[2017-04-17] MEDS: CATAPRES PO SCH ×2 (09:23→22:11)
[2017-04-17] MEDS: COZAAR PO SCH ×2 (09:23→22:10)
[2017-04-17] MEDS: NON-FORMULARY MEDICATION (Cyanocobalamin (Vitamin B-12) [B-12] 500 MCG) PO SCH (09:24)
[2017-04-17] MEDS: CYMBALTA PO SCH (09:25)
[2017-04-17] MEDS: DYAZIDE PO SCH (09:25)
[2017-04-17] MEDS: DALIRESP PO SCH (09:25)
[2017-04-17] MEDS: LEXAPRO PO SCH (09:26)
[2017-04-17] MEDS: FERROUS SULFATE PO SCH ×2 (09:26→22:10)
[2017-04-17] MEDS: MICRO-K CAP PO SCH (09:26)
[2017-04-17] MEDS: LYRICA PO SCH ×2 (09:26→22:13)
[2017-04-17] MEDS: MINOXIDIL PO SCH ×2 (09:27→22:11)
[2017-04-17] MEDS: VITAMIN D PO SCH (09:27)
[2017-04-17] MEDS: ROCEPHIN 1 GM in SODIUM CHLORIDE 50 ML IV SCH (09:32)
[2017-04-17] MEDS: NORCO 10-325 PO PRN ×2 (09:33→22:14)
[2017-04-17] MEDS: NICODERM 21 MG TD SCH (09:33)
[2017-04-17] MEDS: VANCOMYCIN 500 MG in SODIUM CHLORIDE 100 ML IV SCH (10:52)
[2017-04-17] MEDS: NORVASC PO SCH ×2 (11:53→22:10)
[2017-04-17] MEDS: XANAX PO PRN ×2 (17:31→22:14)
[2017-04-17] MEDS: CRESTOR PO SCH (22:10)
[2017-04-18] MEDS: XOPENEX 1.25 MG NEB SCH ×5 (00:24→23:06)
[2017-04-18] MEDS: PLETAL PO SCH ×2 (07:35→17:22)
[2017-04-18] MEDS: ROCEPHIN 1 GM in SODIUM CHLORIDE 50 ML IV SCH (10:55)
[2017-04-18] MEDS: ASPIRIN CHEWABLE PO SCH (11:02)
[2017-04-18] MEDS: COREG PO SCH ×2 (11:03→17:21)
[2017-04-18] MEDS: CATAPRES PO SCH ×2 (11:03→20:45)
[2017-04-18] MEDS: COZAAR PO SCH ×2 (11:04→20:45)
[2017-04-18] MEDS: NON-FORMULARY MEDICATION (Cyanocobalamin (Vitamin B-12) [B-12] 500 MCG) PO SCH (11:05)
[2017-04-18] MEDS: DALIRESP PO SCH (11:06)
[2017-04-18] MEDS: CYMBALTA PO SCH (11:06)
[2017-04-18] MEDS: LYRICA PO SCH ×2 (11:06→20:43)
[2017-04-18] MEDS: MICRO-K CAP PO SCH (11:07)
[2017-04-18] MEDS: FERROUS SULFATE PO SCH ×2 (11:07→20:42)
[2017-04-18] MEDS: NORVASC PO SCH ×2 (11:07→20:45)
[2017-04-18] MEDS: SOLU-MEDROL 125 MG IVP SCH (11:08)
[2017-04-18] MEDS: VITAMIN D PO SCH (11:08)
[2017-04-18] MEDS: MINOXIDIL PO SCH ×2 (11:09→20:45)
[2017-04-18] MEDS: LEXAPRO PO SCH (11:09)
[2017-04-18] MEDS: DYAZIDE PO SCH (11:09)
[2017-04-18] MEDS: NICODERM 21 MG TD SCH (11:10)
[2017-04-18] MEDS ORDERED: PREDNISONE PO STA (11:13)
[2017-04-18] MEDS: XANAX PO PRN ×2 (11:16→20:43)
[2017-04-18] MEDS: VANCOMYCIN 500 MG in SODIUM CHLORIDE 100 ML IV SCH (11:18)
[2017-04-18] MEDS: PREDNISONE PO SCH (17:21)
[2017-04-18] MEDS: NORCO 10-325 PO PRN ×2 (17:22→20:46)
[2017-04-18] MEDS: CRESTOR PO SCH (20:43)
[2017-04-19] MEDS: XOPENEX 1.25 MG NEB SCH ×4 (03:48→23:20)
[2017-04-19] MEDS: PLETAL PO SCH ×2 (05:53→16:57)
[2017-04-19] MEDS: NICODERM 21 MG TD SCH (09:45)
[2017-04-19] MEDS: ROCEPHIN 1 GM in SODIUM CHLORIDE 50 ML IV SCH (09:45)
[2017-04-19] MEDS: MINOXIDIL PO SCH ×2 (09:46→21:48)
[2017-04-19] MEDS: NORVASC PO SCH ×2 (09:46→21:48)
[2017-04-19] MEDS: DYAZIDE PO SCH (09:46)
[2017-04-19] MEDS: ASPIRIN CHEWABLE PO SCH (09:46)
[2017-04-19] MEDS: COREG PO SCH ×2 (09:46→16:58)
[2017-04-19] MEDS: VITAMIN D PO SCH (09:46)
[2017-04-19] MEDS: CATAPRES PO SCH ×2 (09:47→21:48)
[2017-04-19] MEDS: COZAAR PO SCH ×2 (09:47→21:48)
[2017-04-19] MEDS: MICRO-K CAP PO SCH (09:47)
[2017-04-19] MEDS: CYMBALTA PO SCH (09:47)
[2017-04-19] MEDS: FERROUS SULFATE PO SCH ×2 (09:47→21:48)
[2017-04-19] MEDS: LEXAPRO PO SCH (09:47)
[2017-04-19] MEDS: XANAX PO PRN ×2 (09:48→22:47)
[2017-04-19] MEDS: DALIRESP PO SCH (09:48)
[2017-04-19] MEDS: LYRICA PO SCH ×2 (09:49→21:48)
[2017-04-19] MEDS: NON-FORMULARY MEDICATION (Cyanocobalamin (Vitamin B-12) [B-12] 500 MCG) PO SCH (09:49)
[2017-04-19] MEDS: PREDNISONE PO SCH ×2 (09:54→16:58)
[2017-04-19] MEDS: NORCO 10-325 PO PRN ×2 (16:58→22:49)
[2017-04-19] MEDS: CRESTOR PO SCH (21:49)
[2017-04-20] MEDS: XOPENEX 1.25 MG NEB SCH ×2 (03:52→11:21)
[2017-04-20] MEDS: PLETAL PO SCH (05:32)
[2017-04-20] MEDS: LEXAPRO PO SCH (09:20)
[2017-04-20] MEDS: CYMBALTA PO SCH (09:20)
[2017-04-20] MEDS: ROCEPHIN 1 GM in SODIUM CHLORIDE 50 ML IV SCH (09:20)
[2017-04-20] MEDS: CATAPRES PO SCH (09:20)
[2017-04-20] MEDS: ASPIRIN CHEWABLE PO SCH (09:21)
[2017-04-20] MEDS: DYAZIDE PO SCH (09:21)
[2017-04-20] MEDS: LYRICA PO SCH (09:21)
[2017-04-20] MEDS: MICRO-K CAP PO SCH (09:21)
[2017-04-20] MEDS: MINOXIDIL PO SCH (09:21)
[2017-04-20] MEDS: FERROUS SULFATE PO SCH (09:21)
[2017-04-20] MEDS: NORVASC PO SCH (09:21)
[2017-04-20] MEDS: COREG PO SCH (09:21)
[2017-04-20] MEDS: NICODERM 21 MG TD SCH (09:22)
[2017-04-20] MEDS: COZAAR PO SCH (09:22)
[2017-04-20] MEDS: VITAMIN D PO SCH (09:23)
[2017-04-20] MEDS: DALIRESP PO SCH (09:23)
[2017-04-20] MEDS: PREDNISONE PO SCH (09:23)
[2017-04-20] MEDS: NON-FORMULARY MEDICATION (Cyanocobalamin (Vitamin B-12) [B-12] 500 MCG) PO SCH (09:23)
[2017-04-20] MEDS: NORCO 10-325 PO PRN (09:58)
--- NOTE | 2017-04-20 11:11 | PN ---
DATE OF SERVICE: 04/19/17 SUBJECTIVE: The family is in the room including the and two daughters. Discussed her problems in detail. Total time spent 20 minutes. Medical conditions have improved a lot. REVIEW OF SYSTEMS: CONSTITUTIONAL: No night sweats. Fatigue. No fever or chills. Weakness. HEENT: Eyes: No visual changes. No eye pain. No eye discharge. ENT: No runny nose. No epistaxis. No sinus pain. No sore throat. No odynophagia. No congestion. RESPIRATORY: No cough, no congestion. No hemoptysis. Shortness of breath on exertion. CARDIOVASCULAR: No angina symptoms. No CHF symptoms. No atypical chest pain for CAD. No palpitations. No orthopnea. GASTROINTESTINAL: No abdominal pain. No nausea or vomiting. No diarrhea or constipation. No hematemesis. No hematochezia. GENITOURINARY: No urgency. No frequency. No dysuria. No hematuria. No obstructive symptoms. No discharge. No pain. No significant abnormal bleeding. MUSCULOSKELETAL: No musculoskeletal pain; no joint swelling. NEUROLOGICAL: No headache. No neck pain. No syncope. No seizures. No dizziness. PSYCHIATRIC: Not anxious. No depression. No suicidal thoughts. No homicidal thoughts. SKIN: No rash. No lesions. No wounds. ENDOCRINE: No unexplained weight loss. No weight gain. HEMATOLOGIC/LYMPHATIC: No anemia. No purpura. No petechiae. No prolonged or excessive bleeding. No palpable lymph nodes. PHYSICAL EXAMINATION: VITAL SIGNS: Temperature 98, pulse 80, respiratory rate 15, blood pressure 138/ 78. HEENT: Head normocephalic, atraumatic. Eyes: Extraocular muscles are intact. Pupils are equal, round and reactive to light and accommodation. Ears: No lesions. Nose appeared normal. Throat: No exudate or erythema. NECK: Supple. No JVD, no carotid bruit. No lymphadenopathy or thyromegaly. LUNGS: Decreased breath sounds but clear to auscultation. Percussion note normal. Chest symmetrical. HEART: S1, S2, no S3. No murmurs. No cyanosis or clubbing. No ascites. Pulses: Dorsalis pedis and posterior tibial pulses +1 to +2 both sides. On 2 liters the patient is 95%. ABDOMEN: Soft. Nontender. Bowel sounds active. No CVA tenderness. No mass felt. EXTREMITIES: No edema. Full range of motion of all extremities, equal. NEUROLOGIC: No focal deficit. Cranial nerves II through XII are grossly intact. No headache, no double vision or headache. SKIN: Not dry. Intact. Turgor - normal. LYMPHATIC: No palpable lymph nodes/no lymphedema. MUSCULOSKELETAL: Normal joints with no swelling. Muscle tone is normal. ASSESSMENT: 1. Acute respiratory failure, resolved 2. Chronic respiratory failure PLAN: 1. Continue steroids, antibiotics and NEBS treatment 2. The patient is advised not to abuse anti-anxiety medication 3. Also advised her to take her medication on regular basis and have a regular lifestyle 4. Advised to quit smoking, explained that she has severe chronic lung disease , endstage. CONDITION: Stable. TIME SPENT: More than 30 minutes. Plan and coordination of the patient's care discussed in the presence of nurseJoão BROWN
--- NOTE | 2017-04-20 11:28 | PN ---
DATE OF SERVICE: 04/18/17 SUBJECTIVE: 71-year-old female lying in bed resting comfortably. She slept well through the night. Blood pressure has improved with the addition of medication yesterday. We started her on Minoxidil. Her shortness of breath has improved and kidney function has continued to improve. REVIEW OF SYSTEMS: CONSTITUTIONAL: No night sweats. No fatigue, malaise, lethargy. No fever or chills. HEENT: Eyes: No visual changes. No eye pain. No eye discharge. ENT: No runny nose. No epistaxis. No sinus pain. No sore throat. No odynophagia. No congestion. RESPIRATORY: Positive for cough and mild shortness of breath. No hemoptysis. CARDIOVASCULAR: No angina symptoms. No CHF symptoms. No atypical chest pain for CAD. No palpitations. No orthopnea. GASTROINTESTINAL: No abdominal pain. No nausea or vomiting. No diarrhea or constipation. No hematemesis. No hematochezia. GENITOURINARY: No urgency. No frequency. No dysuria. No hematuria. No obstructive symptoms. No discharge. No pain. No significant abnormal bleeding. MUSCULOSKELETAL: No musculoskeletal pain; no joint swelling. NEUROLOGICAL: No headache. No neck pain. No syncope. No seizures. No dizziness. PSYCHIATRIC: Not anxious. No depression. No suicidal thoughts. No homicidal thoughts. SKIN: No rash. No lesions. No wounds. ENDOCRINE: No unexplained weight loss. No weight gain. HEMATOLOGIC/LYMPHATIC: No anemia. No purpura. No petechiae. No prolonged or excessive bleeding. No palpable lymph nodes. PHYSICAL EXAMINATION: VITAL SIGNS: Temperature 98.1, heart rate 93, respirations 20, BP 108/47, pulse ox 93% on 3L. HEENT: Head normocephalic, atraumatic. Eyes: Extraocular muscles are intact. Pupils are equal, round and reactive to light and accommodation. Ears: No lesions. Nose appeared normal. Throat: No exudate or erythema. NECK: Supple. No JVD, no carotid bruit. No lymphadenopathy or thyromegaly. LUNGS: Significantly diminished breath sounds bilaterally. Clear to auscultation. Percussion note normal. Chest symmetrical. HEART: S1, S2, no S3. No murmurs. No cyanosis or clubbing. No ascites. Pulses: Dorsalis pedis and posterior tibial pulses +1 to +2 both sides. ABDOMEN: Soft. Nontender. Bowel sounds active. No CVA tenderness. No mass felt. EXTREMITIES: No edema. Full range of motion of all extremities, equal. NEUROLOGIC: No focal deficit. Cranial nerves II through XII are grossly intact. No headache, no double vision or headache. SKIN: Not dry. Intact. Turgor - normal. LYMPHATIC: No palpable lymph nodes/no lymphedema. MUSCULOSKELETAL: Normal joints with no swelling. Muscle tone is normal. LABS: Hemoglobin 8.71 which is stable, hematocrit 26.1, platelets 103, white count 6.4. Sodium 138, potassium 4.0, BUN 36, creatinine 1.32, glucose 155. ASSESSMENT: 1. ACUTE RESPIRATORY FAILURE, WHICH IS IMPROVING TO CHRONIC, BACK TO BASELINE, BACK TO CHRONIC RESPIRATORY FAILURE 2. ACUTE RENAL FAILURE WHICH IS RESOLVING WITH IV FLUIDS 3. SEVERE COPD, OXYGEN DEPENDENT WITH ACUTE EXACERBATION 4. ANEMIA WHICH IS STABLE PLAN: 1. Will d/c Solu-Medrol 2. Will start Prednisone 20 mg p.o. b.i.d. 3. D/C Vancomycin 4. Anticipate discharge within the next couple of days TIME SPENT: More than 30 minutes. Plan and coordination of the patient's care discussed in the presence of nurse. KEVIN
--- NOTE | 2017-04-20 11:31 | RS.PTINEVL ---
Subjective - Patient information Date of Evaluation: 04/20/17 Date of Arrival on Unit: 04/14/17 Admitted From:: Home Diagnosis: acute respiratory failure, acute renal failure, COPD Usual Living Arrangement: With Spouse Home Environment: House, Stairs (few) Medical History: Hypertension, COPD, Arthritis Medical History Comments:: anxiety, depression, back pain, osteopenia, peripheral artery disease, anemia LATEX ALLERGY?: No Surgical History: Hysterectomy Surgical History Comments:: coronary stent placement Medications: see chart Subjective Information/ Patient Comments:: pt states she is feeling a little better and states she needs to do therapy to get stronger to go home. - Level of function Prior to this admission, the patient could do the following:: Independent Ambulation Current Level of Function: Partially Dependent Current Equipment Used at Home: O2, rwx, Pain Assessement - Location back Description: Aching Intensity: 3 Pain Behavior: Facial Grimacing Pain Aggravating Factors: Changing Position, Walking Pain Alleviating Factors: Medication Interventions - Objective Patient Orientation: Person, Place, Situation Current Interventions: IV's, Oxygen, Telemetry Range of Motion - ROM Right Upper Extremity AROM: WFL's Left Upper Extremity AROM: WFL's Right Lower Extremity AROM: WFL's Left Lower Extremity AROM: WFL's Muscle Strength - Muscle Strength Right Upper Extremity Strength: Mild Weakness (shld flex 3+/5, elbow flex/ext 4- /5,) Left Upper Extremity Strength: Mild Weakness (shld flex 3+/5, elbow flex/ext 4-/ 5,) Right Lower Extremity Strength: Mild Weakness (hip flex 3+/5, knee flex/ext 4-/5 , ankle Df/PF 4-/5) Left Lower Extremity Strength: Mild Weakness (hip flex 3+/5, knee flex/ext 4-/5 , ankle Df/PF 4-/5) Sensation - Sensation Right Upper Extremity Sensation: Intact/Normal Left Upper Extremity Sensation: Intact/Normal Right Lower Extremity Sensation: Intact/Normal Left Lower Extremity Sensation: Intact/Normal Palpation Palpation Findings: None/Normal Balance - Sitting Balance and Reactions Static Sitting Balance: Fair Dynamic Sitting Balance: Poor Sitting Equilibrium Reactions: Delayed Left, Delayed Right Sitting Protective Reactions: Delayed Left, Delayed Right - Standing Balance and Reactions Static Standing Balance: Poor Dynamic Standing Balance: Poor Standing Equilibrium Reactions: Delayed Left, Delayed Right Standing Protective Reactions: Delayed Left, Delayed Right - Comments Balance Assessment Comments: pt with decreased dyn stand balance with increased lat sway and flexed posture Functional Mobility - Bed Mobility Rolling R/L: CGA Supine to Sit: Min Assist Sit to Supine: Min Assist - Transfers Sit to Stand: CGA Stand to Sit: CGA - Safety Awareness Safety Awareness: Fair Ambulation - Ambulation Assistive Device Used: Rolling Walker Orthotic/Prosthetic Device: No Assistance needed with Ambulation: Min Assist, 1 person assist Gait Deviations: Forward posture, Short stride, Deviates from path Ambulation Comments: pt amb with flexed posture, decreased step length, and occasional veer from path and requires cues for rwx placement. Factors Affecting Ambulation: Decreased Balance, Breathing/O2 Saturation, Weakness, Decreased Safety, Cognitive Status, Limited Endurance Treatment time - Time with patient Total treatment time: 28 Patient Education - Education Patient Education: Education of Plan of Care Teaching Recipient: Patient Teaching Methods: Discussion (Discussion with patient regarding POC.) Assessment - Assessment Problem List:: Decreased level of function, Requires training/education, Decreased safety/Risk of falls, Weakness, Cognitive status limits abilities Rehab Potential: Good Further Therapy Indicated?: Yes Short Term Goals GOAL #1: pt transfer sup to/from sit to/from stand SBA Goal to be met by: 04/23/17 Progress towards Goal:: Not Met GOAL #2: pt amb with rwx and O2 75 ft CGA/SBA Goal to be met by: 04/23/17 Progress towards Goal:: Not Met GOAL #3: pt demonstrate independence with rolling and scooting up in bed. Goal to be met by: 04/25/17 [employer]ctor Goals GOAL #1: pt strength BLE 4- to 4/5 and independent with HEP Goal to be met by: 04/27/17 Progress towards goal: Not Met GOAL #2: pt amb functional distances with rwx and O2 with SBA with no LOB Goal to be met by: 04/27/17 Progress towards goal: Not Met GOAL #3: pt transfer sup to/from sit to/from stand independently Goal to be met by: 04/27/17 Progress towards goal: Not Met Plan Plan of Care: Therapeutic EX, Therapeutic Activity, Self-Care/Home Management Other:: gait training Frequency of Treatment: 1-2 X day, as tolerated Duration of Treatment: 1 Week Anticipated Discharge Destination: Home Has the Physician been added for Co-signature?: Yes
--- NOTE | 2017-04-20 12:58 | PN ---
DATE OF SERVICE: 04/17/17 SUBJECTIVE: The patient examined while resting comfortably. She is currently sleeping well. Her lung sounds have improved. Blood pressure remains elevated which is normal for her but it is elevated while she is sleeping. Vital signs are stable. REVIEW OF SYSTEMS: CONSTITUTIONAL: No night sweats. No fatigue, malaise, lethargy. No fever or chills. HEENT: Eyes: No visual changes. No eye pain. No eye discharge. ENT: No runny nose. No epistaxis. No sinus pain. No sore throat. No odynophagia. No congestion. RESPIRATORY: Positive for shortness of breath, coughing. No hemoptysis. CARDIOVASCULAR: No angina symptoms. No CHF symptoms. No atypical chest pain for CAD. No palpitations. No orthopnea. GASTROINTESTINAL: No abdominal pain. No nausea or vomiting. No diarrhea or constipation. No hematemesis. No hematochezia. GENITOURINARY: No urgency. No frequency. No dysuria. No hematuria. No obstructive symptoms. No discharge. No pain. No significant abnormal bleeding. MUSCULOSKELETAL: No musculoskeletal pain; no joint swelling. NEUROLOGICAL: No headache. No neck pain. No syncope. No seizures. No dizziness. PSYCHIATRIC: Positive for anxiety. No depression. No suicidal thoughts. No homicidal thoughts. SKIN: No rash. No lesions. No wounds. ENDOCRINE: No unexplained weight loss. No weight gain. HEMATOLOGIC/LYMPHATIC: No anemia. No purpura. No petechiae. No prolonged or excessive bleeding. No palpable lymph nodes. PHYSICAL EXAMINATION: VITAL SIGNS: Temperature 97.5, heart rate 94, respirations 20, BP 194/90, pulse ox 99. HEENT: Head normocephalic, atraumatic. Eyes: Extraocular muscles are intact. Pupils are equal, round and reactive to light and accommodation. Ears: No lesions. Nose appeared normal. Throat: No exudate or erythema. NECK: Supple. No JVD, no carotid bruit. No lymphadenopathy or thyromegaly. LUNGS: Diminished breath sounds bilaterally with very minimal expiratory wheezing bilaterally. Percussion note normal. Chest symmetrical. HEART: S1, S2, no S3. No murmurs. No cyanosis or clubbing. No ascites. Pulses: Dorsalis pedis and posterior tibial pulses +1 to +2 both sides. ABDOMEN: Soft. Nontender. Bowel sounds active. No CVA tenderness. No mass felt. EXTREMITIES: No edema. Full range of motion of all extremities, equal. NEUROLOGIC: No focal deficit. Cranial nerves II through XII are grossly intact. No headache, no double vision or headache. SKIN: Not dry. Intact. Turgor - normal. LYMPHATIC: No palpable lymph nodes/no lymphedema. MUSCULOSKELETAL: Normal joints with no swelling. Muscle tone is normal. LABS: Hemoglobin 8.6, hematocrit 25.6, white count 7.2, platelets 98. Sodium 139, potassium 3.6, BUN 30, creatinine 1.21, glucose 164, BNP 268. ASSESSMENT: 1. ACUTE RESPIRATORY FAILURE WHICH IS SLIGHTLY IMPROVED 2. ACUTE ON CHRONIC RESPIRATORY FAILURE 3. ACUTE RENAL FAILURE RESOLVING WITH HYDRATION 4. SEVERE COPD OXYGEN DEPENDENT 5. HYPERTENSION 6. ANEMIA PLAN: 1. D/C IV fluids 2. Decrease Solu-Medrol to 125 mg q.12hr IV 3. Increase Cozaar to 50 mg b.i.d. and start Norvasc 5 mg b.i.d. TIME SPENT: More than 30 minutes. Plan and coordination of the patient's care discussed in the presence of nurse. KEVIN
--- NOTE | 2017-04-20 13:37 | PN ---
DATE OF SERVICE: 04/18/17 SUBJECTIVE: The patient was admitted with acute respiratory failure. Condition has improved remarkably. Her cardiac functions are normal. PHYSICAL EXAMINATION: VITALS: She is afebrile and oxygen saturation is 94% with 2 liters. HEENT: Head normocephalic, atraumatic. Eyes: Extraocular muscles are intact. Pupils are equal, round and reactive to light and accommodation. Ears: No lesions. Nose appeared normal. Throat: No exudate or erythema. NECK: Supple. No JVD, no carotid bruit. No lymphadenopathy or thyromegaly. LUNGS: Decreased breath sounds but good air entry. Clear to auscultation. Percussion note normal. Chest symmetrical. HEART: S1, S2, no S3. No murmurs. No cyanosis or clubbing. No ascites. Pulses: Dorsalis pedis and posterior tibial pulses +1 to +2 both sides. ABDOMEN: Soft. Nontender. Bowel sounds active. No CVA tenderness. No mass felt. EXTREMITIES: No edema. Full range of motion of all extremities, equal. NEUROLOGIC: No focal deficit. Cranial nerves II through XII are grossly intact. No headache, no double vision or headache. SKIN: Not dry. Intact. Turgor - normal. LYMPHATIC: No palpable lymph nodes/no lymphedema. MUSCULOSKELETAL: Normal joints with no swelling. Muscle tone is normal. ASSESSMENT: 1. New problem of hypertension which seems to be getting under control with Minoxidil and Clonidine. PLAN: 1. The patient wants to go out and smoke and explained about COPD. She forgets about it and she continues to ask the same question what's the matter with her. She has been explained about her medical problems in detail for past several years. 2. Counseling for smoking TIME SPENT: More than 30 minutes. Plan and coordination of the patient's care discussed in the presence of nurse. KEVIN
[2017-04-20 14:41] VITALS: BP 135/60; TEMP 97.9
--- NOTE | 2017-05-07 14:53 | PN ---
DATE OF SERVICE: 04/16/17 SUBJECTIVE: 71-year-old white female hospitalized with acute respiratory failure. The patient's condition has improved remarkably. Blood gases look a lot better. PHYSICAL EXAMINATION: GENERAL: The patient is awake in no distress. HEENT: Head normocephalic, atraumatic. Eyes: Extraocular muscles are intact. Pupils are equal, round and reactive to light and accommodation. Ears: No lesions. Nose appeared normal. Throat: No exudate or erythema. NECK: Supple. No JVD, no carotid bruit. No lymphadenopathy or thyromegaly. LUNGS: Decreased breath sounds. Clear to auscultation. Percussion note normal. Chest symmetrical. HEART: S1, S2, no S3. No murmurs. No cyanosis or clubbing. No ascites. Pulses: Dorsalis pedis and posterior tibial pulses +1 to +2 both sides. ABDOMEN: Soft. Nontender. Bowel sounds active. No CVA tenderness. No mass felt. EXTREMITIES: No edema. Full range of motion of all extremities, equal. NEUROLOGIC: No focal deficit. Cranial nerves II through XII are grossly intact. No headache, no double vision or headache. SKIN: Not dry. Intact. Turgor - normal. LYMPHATIC: No palpable lymph nodes/no lymphedema. MUSCULOSKELETAL: Normal joints with no swelling. Muscle tone is normal. The patient wants to go out and smoke. The patient is noncompliant with some dementia. The patient was seen and examined with nurse practitioner. The patient will be treated with low flow oxygen, steroids, antibiotics. Counseling for smoking done. TIME SPENT: More than 30 minutes. Plan and coordination of the patient's care discussed in the presence of nurse. KEVIN
--- NOTE | 2017-05-07 14:57 | PN ---
DATE OF SERVICE: 04/17/17 SUBJECTIVE: 71-year-old white female hospitalized with acute respiratory failure. She was on BIPAP for awhile. She had severe respiratory acidosis. The patient has completely recovered her blood gases on 2L that are acceptable with oxygen saturation 97%. PHYSICAL EXAMINATION: HEENT: Head normocephalic, atraumatic. Eyes: Extraocular muscles are intact. Pupils are equal, round and reactive to light and accommodation. Ears: No lesions. Nose appeared normal. Throat: No exudate or erythema. NECK: Supple. No JVD, no carotid bruit. No lymphadenopathy or thyromegaly. LUNGS: Decreased breath sounds. Clear to auscultation. Percussion note normal. Chest symmetrical. HEART: S1, S2, no S3. No murmurs. No cyanosis or clubbing. No ascites. Pulses: Dorsalis pedis and posterior tibial pulses +1 to +2 both sides. ABDOMEN: Soft. Nontender. Bowel sounds active. No CVA tenderness. No mass felt. EXTREMITIES: No edema. Full range of motion of all extremities, equal. NEUROLOGIC: No focal deficit. Cranial nerves II through XII are grossly intact. No headache, no double vision or headache. SKIN: Not dry. Intact. Turgor - normal. LYMPHATIC: No palpable lymph nodes/no lymphedema. MUSCULOSKELETAL: Normal joints with no swelling. Muscle tone is normal. The patient was seen and examined with the nurse practitoner. PLAN: 1. Will continue to give the patient steroids, antibiotics, nebs. 2. Counseling for smoking done. TIME SPENT: More than 30 minutes. Plan and coordination of the patient's care discussed in the presence of nurse. KEVIN
--- NOTE | 2017-05-09 12:41 | PN ---
DATE OF SERVICE: 04/20/17 SUBJECTIVE: 71-year-old female hospitalized with respiratory failure. The patient was on BIPAP for awhile. She has improved remarkably. Her renal failure is under control. She is anemic which is chronic. The patient is a heavy smoker. Counseling for smoking done. REVIEW OF SYSTEMS: CONSTITUTIONAL: Weakness. No night sweats. No malaise, lethargy. No fever or chills. HEENT: Eyes: No visual changes. No eye pain. No eye discharge. ENT: No runny nose. No epistaxis. No sinus pain. No sore throat. No odynophagia. No congestion. RESPIRATORY: No cough, no congestion. No hemoptysis. Mild shortness of breath with exertion. CARDIOVASCULAR: No angina symptoms. No CHF symptoms. No atypical chest pain for CAD. No palpitations. No orthopnea. GASTROINTESTINAL: Appetite has improved. No abdominal pain. No nausea or vomiting. No diarrhea or constipation. No hematemesis. No hematochezia. GENITOURINARY: No urgency. No frequency. No dysuria. No hematuria. No obstructive symptoms. No discharge. No pain. No significant abnormal bleeding. MUSCULOSKELETAL: No musculoskeletal pain; no joint swelling. NEUROLOGICAL: No headache. No neck pain. No syncope. No seizures. No dizziness. PSYCHIATRIC: Not anxious. No depression. No suicidal thoughts. No homicidal thoughts. SKIN: No rash. No lesions. No wounds. ENDOCRINE: No unexplained weight loss. No weight gain. HEMATOLOGIC/LYMPHATIC: Chronic anemia. No purpura. No petechiae. No prolonged or excessive bleeding. No palpable lymph nodes. PHYSICAL EXAMINATION: VITAL SIGNS: Temperature 97.4, pulse 83, respiratory rate 24, BP 144/65, pulse ox 99%. HEENT: Head normocephalic, atraumatic. Eyes: Extraocular muscles are intact. Pupils are equal, round and reactive to light and accommodation. Ears: No lesions. Nose appeared normal. Throat: No exudate or erythema. NECK: Supple. No JVD, no carotid bruit. No lymphadenopathy or thyromegaly. LUNGS: Decreased breath sounds. Clear to auscultation. Percussion note normal. Chest symmetrical. HEART: S1, S2, no S3. No murmurs. No cyanosis or clubbing. No ascites. Pulses: Dorsalis pedis and posterior tibial pulses +1 to +2 both sides. ABDOMEN: Soft. Nontender. Bowel sounds active. No CVA tenderness. No mass felt. EXTREMITIES: No edema. Full range of motion of all extremities, equal. NEUROLOGIC: No focal deficit. Cranial nerves II through XII are grossly intact. No headache, no double vision or headache. SKIN: Not dry. Intact. Turgor - normal. LYMPHATIC: No palpable lymph nodes/no lymphedema. MUSCULOSKELETAL: Normal joints with no swelling. Muscle tone is normal. LABS: Hemoglobin 8.7, hematocrit 26, WBC 6,000, normal differential. Creatinine 1.1, BUN 39, potassium 3.9, BNP 268 on 04/14/17. ASSESSMENT: 1. ACUTE RESPIRATORY FAILURE SEEMS TO HAVE RESOLVED. THE PATIENT'S BLOOD GASES ARE A LOT BETTER ON 2l WITH OXYGEN SATURATION MORE THAN 94%. PLAN: 1. Continue nebs treatment, steroids, antibiotics. 2. The patient is a heavy smoker. Counseling for smoking done. 3. The patient was explained about her peripheral arterial disease possibly coronary artery disease. CONDITION: Stable TIME SPENT: More than 30 minutes. Plan and coordination of the patient's care discussed in the presence of nurse. KEVIN
--- NOTE | 2017-05-10 13:08 | PN ---
DATE OF SERVICE: 04/15/17 SUBJECTIVE: 71-year-old white female hospitalized with acute respiratory failure. The patient was on BIPAP for awhile. She improved, now is on cannula 2L with oxygen saturation of 94%, remarkable improvement. She is running a low grade fever and has pneumonitis REVIEW OF SYSTEMS: CONSTITUTIONAL: No night sweats. No fatigue, malaise, lethargy. No fever or chills. HEENT: Eyes: No visual changes. No eye pain. No eye discharge. ENT: No runny nose. No epistaxis. No sinus pain. No sore throat. No odynophagia. No congestion. RESPIRATORY: No cough, no congestion. No hemoptysis. No shortness of breath. CARDIOVASCULAR: No angina symptoms. No CHF symptoms. No atypical chest pain for CAD. No palpitations. No orthopnea. GASTROINTESTINAL: No abdominal pain. No nausea or vomiting. No diarrhea or constipation. No hematemesis. No hematochezia. GENITOURINARY: No urgency. No frequency. No dysuria. No hematuria. No obstructive symptoms. No discharge. No pain. No significant abnormal bleeding. MUSCULOSKELETAL: No musculoskeletal pain; no joint swelling. NEUROLOGICAL: No headache. No neck pain. No syncope. No seizures. No dizziness. PSYCHIATRIC: Not anxious. No depression. No suicidal thoughts. No homicidal thoughts. SKIN: No rash. No lesions. No wounds. ENDOCRINE: No unexplained weight loss. No weight gain. HEMATOLOGIC/LYMPHATIC: No anemia. No purpura. No petechiae. No prolonged or excessive bleeding. No palpable lymph nodes. PHYSICAL EXAMINATION: HEENT: Head normocephalic, atraumatic. Eyes: Extraocular muscles are intact. Pupils are equal, round and reactive to light and accommodation. Ears: No lesions. Nose appeared normal. Throat: No exudate or erythema. NECK: Supple. No JVD, no carotid bruit. No lymphadenopathy or thyromegaly. LUNGS: Decreased breath sounds but good air entry, better than yesterday but still diminished all over. Percussion note normal. Chest symmetrical. HEART: S1, S2, no S3. Tachycardia, rate around 100 apical rate. No murmurs. No cyanosis or clubbing. No ascites. Pulses: Dorsalis pedis and posterior tibial pulses +1 to +2 both sides. ABDOMEN: Soft. Nontender. Bowel sounds active. No CVA tenderness. No mass felt. EXTREMITIES: No edema. Full range of motion of all extremities, equal. NEUROLOGIC: No focal deficit. Cranial nerves II through XII are grossly intact. No headache, no double vision or headache. SKIN: Not dry. Intact. Turgor - normal. LYMPHATIC: No palpable lymph nodes/no lymphedema. MUSCULOSKELETAL: Normal joints with no swelling. Muscle tone is normal. ASSESSMENT: 1. PNEUMONITIS 2. ACUTE RESPIRATORY FAILURE 3. ACUTE BRONCHITIS 4. SEVERE CHRONIC LUNG DISEASE PLAN: 1. The patient wants to go out and smoke. Counseling for smoking done. talked about smoking habit and advised to discontinue. She has been smoking for a number of years. 2. Continue steroids IV. 3. Continue IV antbiotics, nebs treatment. 4. Oxygen 2 to 3L/cannula 5. Xanax p.r.n. The patient was seen by the nurse practitioner. TIME SPENT: More than 30 minutes. Plan and coordination of the patient's care discussed in the presence of nurse. KEVIN
== END 2017-04-20 15:00 | disposition swing bed (61) | DRG 189 ==
LOC: ED 09:35 → SCU 15:24
PROVIDERS: ADMIT Internal Medicine; ATTEND Internal Medicine
DX: J96.20 Acute and chronic respiratory failure, unspecified whether with hypoxia or hypercapnia (principal); N17.9 Acute kidney failure, unspecified; J44.1 Chronic obstructive pulmonary disease with (acute) exacerbation; R53.81 Other malaise; I10 Essential (primary) hypertension; D64.9 Anemia, unspecified; E87.6 Hypokalemia; R53.1 Weakness; R91.1 Solitary pulmonary nodule; F41.0 Panic disorder [episodic paroxysmal anxiety]; I65.29 Occlusion and stenosis of unspecified carotid artery; I70.1 Atherosclerosis of renal artery; G62.9 Polyneuropathy, unspecified; E78.5 Hyperlipidemia, unspecified; M19.90 Unspecified osteoarthritis, unspecified site; M47.9 Spondylosis, unspecified; F17.210 Nicotine dependence, cigarettes, uncomplicated; Z79.899 Other long term (current) drug therapy
CPT/HCPCS: 36415; 80053; 80202; 82550; 82803; 82962; 83605; 83880; 84145; 84484; 85025; 85379; 87040; 87081; 87502; 87651; 87880; 93005; 93010; 94640; 94660; 96360; 96361; 96366; 96367; 96375; 97802; 99223; 99232; 99239; 99285

== ENCOUNTER 2017-04-20 07:13 | Outpatient (RCR) | END 2017-05-19 | LOC: PUL.REHAB 07:13 | PROVIDERS: ATTEND Internal Medicine | DX: J44.9 Chronic obstructive pulmonary disease, unspecified (principal) ==

== ENCOUNTER 2017-04-20 15:00 | Inpatient (IN) ==
[2017-04-20] MEDS ORDERED: NON-FORMULARY MEDICATION (Hydrocodone Bit/Acetaminophen 1 TAB) PO PRN (16:09)
[2017-04-20] MEDS: PREDNISONE PO SCH (16:54)
[2017-04-20] MEDS: PLETAL PO SCH (16:54)
[2017-04-20] MEDS: COREG PO SCH (16:54)
[2017-04-20] MEDS ORDERED: NON-FORMULARY MEDICATION (Carvedilol [Coreg] 25 MG) PO SCH (17:30)
[2017-04-20] MEDS: XOPENEX 1.25 MG NEB SCH ×2 (18:47→23:18)
[2017-04-20] MEDS ORDERED: NON-FORMULARY MEDICATION (Ferrous Gluconate [Ferrous Gluconate] 324 MG) PO SCH (21:00)
[2017-04-20] MEDS ORDERED: NON-FORMULARY MEDICATION (Losartan Potassium 50 MG) PO SCH (21:00)
[2017-04-20] MEDS: LYRICA PO SCH (21:37)
[2017-04-20] MEDS: XANAX PO PRN (21:37)
[2017-04-20] MEDS: CATAPRES PO SCH (21:38)
[2017-04-20] MEDS: NORVASC PO SCH (21:38)
[2017-04-20] MEDS: FERROUS SULFATE PO SCH (21:38)
[2017-04-20] MEDS: NORCO 10-325 PO PRN (21:38)
[2017-04-20] MEDS: MINOXIDIL PO SCH (21:40)
[2017-04-20] MEDS: COZAAR PO SCH (21:40)
[2017-04-20] MEDS: CRESTOR PO SCH (21:40)
[2017-04-21] MEDS: XOPENEX 1.25 MG NEB SCH ×4 (04:17→23:08)
[2017-04-21] MEDS: PLETAL PO SCH ×2 (05:46→17:27)
[2017-04-21] MEDS ORDERED: NON-FORMULARY MEDICATION (Cholecalciferol (Vitamin D3) [Vitamin D3] 400 UNIT) PO SCH (09:00)
[2017-04-21] MEDS ORDERED: NON-FORMULARY MEDICATION (Escitalopram Oxalate [Lexapro] 20 MG) PO SCH (09:00)
[2017-04-21] MEDS ORDERED: NON-FORMULARY MEDICATION (Losartan Potassium 50 MG) PO SCH (09:00)
[2017-04-21] MEDS ORDERED: NON-FORMULARY MEDICATION (Duloxetine Hcl [Cymbalta] 60 MG) PO SCH (09:00)
--- NOTE | 2017-04-21 10:12 | RS.PTINEVL ---
Subjective - Patient information Date of Evaluation: 04/21/17 Date of Arrival on Unit: 04/14/17 Admitted From:: In-House Transfer Diagnosis: acute respiratory failure, acute renal failure, COPD Usual Living Arrangement: With Spouse Living Arrangement Comments: Lives with spouse Home Environment: House, Stairs (few), No rail Medical History: Hypertension, COPD, Arthritis Medical History Comments:: back pain, osteopenia, peripheral art disease, anxiety, depression, anemia, neuropathy LATEX ALLERGY?: No Surgical History: Hysterectomy Surgical History Comments:: coronary stent placement Subjective Information/ Patient Comments:: pt states she wants to get stronger so she can go home. - Level of function Prior to this admission, the patient could do the following:: Independent Ambulation Current Level of Function: Partially Dependent Current Equipment Used at Home: oxygen, rwx, BSC, shower chair Interventions - Objective Patient Orientation: Person, Place, Time, Situation Current Interventions: IV's, Oxygen, Telemetry Range of Motion - ROM Right Upper Extremity AROM: WFL's Left Upper Extremity AROM: WFL's Right Lower Extremity AROM: WFL's Left Lower Extremity AROM: WFL's Muscle Strength - Muscle Strength Right Upper Extremity Strength: Mild Weakness (shld flex 4-/5, elbow flex/ext 4- /5.) Left Upper Extremity Strength: Mild Weakness (shld flex 4-/5, elbow flex/ext 4-/ 5.) Right Lower Extremity Strength: Mild Weakness (hip flex 4-/5, knee flex/ext 4/5 , ankle DF/PF 4/5) Left Lower Extremity Strength: Mild Weakness (hip flex 4-/5, knee flex/ext 4/5, ankle DF/PF 4/5) Sensation - Sensation Right Upper Extremity Sensation: Intact/Normal Left Upper Extremity Sensation: Intact/Normal Right Lower Extremity Sensation: Impaired Left Lower Extremity Sensation: Impaired Comments: n/t BLE due to neuropathy Balance - Sitting Balance and Reactions Static Sitting Balance: Good Dynamic Sitting Balance: Fair Sitting Equilibrium Reactions: Within Normal Limits Left, Within Normal Limit Right Sitting Protective Reactions: Delayed Left, Delayed Right - Standing Balance and Reactions Static Standing Balance: Fair Dynamic Standing Balance: Poor Standing Equilibrium Reactions: Delayed Left, Delayed Right Standing Protective Reactions: Delayed Left, Delayed Right - Comments Balance Assessment Comments: tinetti score: 15/28 Functional Mobility - Bed Mobility Rolling R/L: Independent Supine to Sit: CGA - Transfers Sit to Stand: CGA Stand to Sit: CGA - Safety Awareness Safety Awareness: Fair Ambulation - Ambulation Assistive Device Used: Rolling Walker Orthotic/Prosthetic Device: No Distance: 70ft Assistance needed with Ambulation: CGA, Min Assist Gait Deviations: Forward posture, Short stride Ambulation Comments: pt amb with decreased step length, flexed posture, and requires verbal cues for PLB and placement of rwx Factors Affecting Ambulation: Decreased Balance, Breathing/O2 Saturation, Weakness, Decreased Coordination, Decreased Safety, Limited Endurance, Limited Sensation Treatment time - Time with patient Total treatment time: 28 Assessment - Assessment Problem List:: Decreased level of function, Requires training/education, Decreased safety/Risk of falls, Weakness, Cognitive status limits abilities Rehab Potential: Good Further Therapy Indicated?: Yes Short Term Goals GOAL #1: pt demonstrate independence with bed mobility Goal to be met by: 04/26/17 Progress towards Goal:: Not Met GOAL #2: pt amb with rwx 100ft with O2 with CGA with no LOB Goal to be met by: 04/26/17 Progress towards Goal:: Not Met GOAL #3: pt transfer sup to/from sit Independently, sit to/from stand SBA Goal to be met by: 04/26/17 Vinyl Cutter Goals GOAL #1: pt strength BLE 4 to 4+/5 and independent with HEP Goal to be met by: 05/01/17 GOAL #2: pt amb functional distances with rwx with O2 and SBA with no LOB Goal to be met by: 05/01/17 GOAL #3: pt with improved dyn stand balance as noted by tinetti score of 20/28 Goal to be met by: 05/01/17 Plan Plan of Care: Therapeutic EX, Neuromuscular Re-Educ, Therapeutic Activity, Self- Care/Home Management Other:: gait training Frequency of Treatment: 1-2 X day, as tolerated Duration of Treatment: 10 days Anticipated Discharge Destination: Home Has the Physician been added for Co-signature?: Yes
[2017-04-21] MEDS: ROCEPHIN 1 GM in SODIUM CHLORIDE 50 ML IV SCH (10:37)
[2017-04-21] MEDS: NICODERM 21 MG TD SCH (10:37)
[2017-04-21] MEDS: DALIRESP PO SCH (10:38)
[2017-04-21] MEDS: COZAAR PO SCH ×2 (10:38→20:28)
[2017-04-21] MEDS: NORCO 10-325 PO PRN ×2 (10:39→21:46)
[2017-04-21] MEDS: DYAZIDE PO SCH (10:39)
[2017-04-21] MEDS: MICRO-K CAP PO SCH (10:39)
[2017-04-21] MEDS: MINOXIDIL PO SCH ×2 (10:39→20:27)
[2017-04-21] MEDS: VITAMIN D PO SCH (10:39)
[2017-04-21] MEDS: LYRICA PO SCH ×2 (10:39→20:27)
[2017-04-21] MEDS: LEXAPRO PO SCH (10:39)
[2017-04-21] MEDS: XANAX PO PRN ×2 (10:39→17:27)
[2017-04-21] MEDS: NORVASC PO SCH ×2 (10:40→20:27)
[2017-04-21] MEDS: CATAPRES PO SCH ×2 (10:40→20:27)
[2017-04-21] MEDS: COREG PO SCH ×2 (10:40→17:26)
[2017-04-21] MEDS: PREDNISONE PO SCH ×2 (10:40→17:26)
[2017-04-21] MEDS: CYMBALTA PO SCH (10:40)
[2017-04-21] MEDS: FERROUS SULFATE PO SCH ×2 (10:40→20:27)
[2017-04-21] MEDS: ASPIRIN CHEWABLE PO SCH (10:40)
[2017-04-21] MEDS: NON-FORMULARY MEDICATION (Cyanocobalamin (Vitamin B-12) [B-12] 500 MCG) PO SCH (10:41)
--- NOTE | 2017-04-21 10:57 | RS.OTINEVL ---
Subjective - Patient information Date of Evaluation: 04/21/17 Date of Arrival on Unit: 04/14/17 Admitted From:: In-House Transfer Diagnosis: Muscle weakness, Shortness of breath Usual Living Arrangement: With Spouse Living Arrangement Comments: Lives with spouse Home Environment: House, Stairs (few), No rail Medical History: Hypertension, COPD, Arthritis Medical History Comments:: back pain, osteopenia, peripheral art disease, anxiety, depression, anemia LATEX ALLERGY?: No Surgical History: Hysterectomy Surgical History Comments:: coronary stent placement Subjective Information/ Patient Comments:: "It's just this breathing that is so difficult for me." - Level of function Prior to this admission, the patient could do the following:: Independent Ambulation Abilities prior to this admission: Pt was living at home with her that still works. Pt reports she uses a rolling walker intermittently. Pt cooks sometimes. Pt was independent with dressing at home. Current Equipment Used at Home: oxygen, rwx, BSC, shower chair Pain Assessment - Pain Pain Score: 0 Interventions - Objective Patient Orientation: Person, Place, Time, Situation Current Interventions: IV's, Oxygen, Telemetry Observation: Pt is short of breath with activity. Pt is able to sit EOB with CGA. Pt has impaired sitting balance at EOB with full shoulder flexion. Interventions - ROM Right Upper Extremity AROM: WFL's Left Upper Extremity AROM: WFL's - Strength Right Upper Extremity Strength: Mild Weakness Left Upper Extremity Strength: Mild Weakness - Sensation Right Upper Extremity Sensation: Intact/Normal Left Upper Extremity Sensation: Intact/Normal Balance - Sitting Balance Static Sitting Balance: Good Dynamic Sitting Balance: Fair - Standing Balance Static Standing Balance: Fair Dynamic Standing Balance: Poor ADL Skills - Self Feeding Self Feeding: Independent - Grooming Grooming: Min Assist - Bathing Bathing UE: CGA Bathing LE: CGA - Dressing Dressing UE: CGA Dressing LE: CGA - Toilet Management Toileting Management: Min Assist Functional Mobility - Bed Mobility Rolling R/L: CGA Scooting: CGA Supine to Sit: CGA Sit to Supine: CGA - Transfers Sit to Stand: CGA Stand to Sit: CGA Stand Pivot Transfers: CGA - Ambulation Assistive Device Used: Rolling Walker Assistance needed with Ambulation: Min Assist, 2 person assist Comments:: Pt has Oxygen at 2 liters and requires minimal assist to CGA for ambulation with RW. Additional Treatment Performed - Time with patient Total treatment time: 20 Activities Patient Interests:: Watching Television Patient Education Patient Education: Home Exercise Program Teaching Recipient: Patient, Family Teaching Methods: Discussion Assessment Problem List:: Decreased level of function, Weakness Rehab Potential: Good Further Therapy Indicated?: Yes Short Term Goals - Goals GOAL 1: To tolerate 15 minutes of standing activity. Goal to be met by: 04/28/17 GOAL 2: To increase BUE strength to 4/5. Goal to be met by: 04/28/17 GOAL 3: Pt to be independent with home exercise program. Goal to be met by: 04/28/17 Network Systems Consultant Goals GOAL 1: To tolerate 20 minutes of standing activity. Goal to be met by: 05/05/17 GOAL 2: To increase BUE strength to 4/5. Goal to be met by: 05/05/17 GOAL 3: Pt to be modified independent with ambulation with RW. Goal to be met by: 05/05/17 Plan Plan of Care: Therapeutic EX, Neuromuscular Re-Educ, Therapeutic Activity, Self- Care/Home Management Frequency of Treatment: 1-2 X day, as tolerated Duration of Treatment: 2 Weeks Anticipated Discharge Destination: Home Has the Physician been added for Co-signature?: Yes
--- NOTE | 2017-04-21 11:42 | DI ---
EXAM: Chest two views HISTORY: Cough, shortness of breath COMPARISON: 04/05/2017 TECHNIQUE: Two views of the chest were performed FINDINGS: Patchy left basilar opacity. Emphysematous change. There is no pleural effusion or pneum othorax. The heart is normal in size. The mediastinal contour is normal, noting atherosclerosis. T here are no acute abnormalities of the bones. Abdominal aortic stent present. IMPRESSION: 1. Patchy left basilar opacity probably represents pneumonia. Recommend radiographic follow-up. 2. Emphysematous change.
[2017-04-21] MEDS: CRESTOR PO SCH (20:28)
[2017-04-22] MEDS: XOPENEX 1.25 MG NEB SCH ×3 (04:33→22:50)
[2017-04-22] MEDS: PLETAL PO SCH ×2 (05:43→16:36)
[2017-04-22] MEDS: CYMBALTA PO SCH (09:43)
[2017-04-22] MEDS: NICODERM 21 MG TD SCH (09:43)
[2017-04-22] MEDS: ROCEPHIN 1 GM in SODIUM CHLORIDE 50 ML IV SCH (09:43)
[2017-04-22] MEDS: VITAMIN D PO SCH (09:43)
[2017-04-22] MEDS: FERROUS SULFATE PO SCH ×2 (09:44→20:57)
[2017-04-22] MEDS: LYRICA PO SCH ×2 (09:44→20:58)
[2017-04-22] MEDS: CATAPRES PO SCH ×2 (09:44→20:57)
[2017-04-22] MEDS: PREDNISONE PO SCH ×2 (09:44→16:36)
[2017-04-22] MEDS: MINOXIDIL PO SCH ×2 (09:44→20:57)
[2017-04-22] MEDS: MICRO-K CAP PO SCH (09:44)
[2017-04-22] MEDS: LEXAPRO PO SCH (09:44)
[2017-04-22] MEDS: COZAAR PO SCH ×2 (09:45→20:58)
[2017-04-22] MEDS: NORVASC PO SCH ×2 (09:45→20:58)
[2017-04-22] MEDS: DALIRESP PO SCH (09:45)
[2017-04-22] MEDS: DYAZIDE PO SCH (09:45)
[2017-04-22] MEDS: ASPIRIN CHEWABLE PO SCH (09:45)
[2017-04-22] MEDS: COREG PO SCH ×2 (09:50→16:35)
[2017-04-22] MEDS: NON-FORMULARY MEDICATION (Cyanocobalamin (Vitamin B-12) [B-12] 500 MCG) PO SCH (09:52)
[2017-04-22] MEDS: XANAX PO PRN ×2 (12:49→20:57)
[2017-04-22] MEDS: NORCO 10-325 PO PRN ×2 (12:49→20:57)
[2017-04-22] MEDS: CRESTOR PO SCH (20:57)
[2017-04-23] MEDS: XOPENEX 1.25 MG NEB SCH (03:50)
[2017-04-23] MEDS: PLETAL PO SCH (05:55)
[2017-04-23 06:07] VITALS: BP 122/55; TEMP 98.7
[2017-04-23] MEDS: ROCEPHIN 1 GM in SODIUM CHLORIDE 50 ML IV SCH (09:49)
[2017-04-23] MEDS: COREG PO SCH (09:50)
[2017-04-23] MEDS: VITAMIN D PO SCH (09:50)
[2017-04-23] MEDS: NORCO 10-325 PO PRN (09:50)
[2017-04-23] MEDS: MICRO-K CAP PO SCH (09:50)
[2017-04-23] MEDS: LEXAPRO PO SCH (09:50)
[2017-04-23] MEDS: NORVASC PO SCH (09:50)
[2017-04-23] MEDS: CYMBALTA PO SCH (09:50)
[2017-04-23] MEDS: COZAAR PO SCH (09:51)
[2017-04-23] MEDS: MINOXIDIL PO SCH (09:51)
[2017-04-23] MEDS: PREDNISONE PO SCH (09:51)
[2017-04-23] MEDS: DYAZIDE PO SCH (09:51)
[2017-04-23] MEDS: NICODERM 21 MG TD SCH (09:51)
[2017-04-23] MEDS: LYRICA PO SCH (09:51)
[2017-04-23] MEDS: FERROUS SULFATE PO SCH (09:52)
[2017-04-23] MEDS: CATAPRES PO SCH (09:52)
[2017-04-23] MEDS: ASPIRIN CHEWABLE PO SCH (09:52)
[2017-04-23] MEDS: DALIRESP PO SCH (09:52)
[2017-04-23] MEDS: NON-FORMULARY MEDICATION (Cyanocobalamin (Vitamin B-12) [B-12] 500 MCG) PO SCH (09:52)
--- NOTE | 2017-04-23 10:36 | CM.DICTOOL ---
ADMISSION: 04/20/17 15:00 DISCHARGE: 04/23/17 DATE OF SERVICE: 04/23/17 FINAL DIAGNOSIS RESPIRATORY FAILURE, ACUTE ON CHRONIC--RESOLVED RENAL FAILURE, ACUTE --RESOLVED FUNCTIONAL DECLINE SECONDARY TO ABOVE COPD EXACERBATION HYPERTENSION ANEMIA (REQUIRED 1 UNIT PRBC TRANSFUSION, 04/03/17) HYPOKALEMIA, REPLACED ANXIETY/PANIC EPISODES PULMONARY NODULE, [address] NEUROPATHY DYSLIPIDEMIA DEPRESSION OSTEOARTHRITIS DJD SPINE CAROTID OCCLUSIVE DISEASE RENAL ARTERY STENOSIS HYSTERECTOMY, 1989 AORTOILIAC BYPASS AAA, 1997 LVH (LVEF 53%-ECHO, 11/02) CURRENT EVERYDAY SMOKER LAST VITALS Temp Pulse Resp BP Pulse Ox 98.7 F 89 18 122/55 L 98 04/23/17 06:00 04/23/17 06:00 04/23/17 06:00 04/23/17 06:00 04/23/17 06:00 ACTIVE HOME MEDICATIONS Acetaminophen/Hydrocodone Bitart ([place] 10-325) 1 tab PO TID PRN PRN Reason: ANALGESIA Last Admin: 04/22/17 20:57 Dose: 1 tab Alprazolam (Xanax) 0.25 mg PO TID PRN PRN Reason: Anxiety Last Admin: 04/22/17 20:57 Dose: 0.25 mg Arformoterol Tartrate (Brovana) 1 vial IH Q12H PRN Aspirin (Aspirin Chewable) 81 mg PO DAILYWM [facility] Last Admin: 04/22/17 09:45 Dose: 81 mg Carvedilol (Coreg) 25 mg PO BIDWM [facility] Last Admin: 04/22/17 16:35 Dose: 25 mg Cholecalciferol (Vitamin D) 400 unit PO DAILY [facility] Last Admin: 04/22/17 09:43 Dose: 400 unit Cilostazol (Pletal) 100 mg PO BIDAC [facility] Last Admin: 04/23/17 05:55 Dose: 100 mg Clonidine (Catapres) 0.1 mg PO BID [facility] Last Admin: 04/22/17 20:57 Dose: 0.1 mg Duloxetine HCl (Cymbalta) 60 mg PO DAILY [facility] Last Admin: 04/22/17 09:43 Dose: 60 mg Escitalopram Oxalate (Lexapro) 20 mg PO DAILY [facility] Last Admin: 04/22/17 09:44 Dose: 20 mg Ferrous Sulfate (Ferrous Sulfate) 324 mg PO BID [facility] Last Admin: 04/22/17 20:57 Dose: 324 mg Losartan Potassium (Cozaar) 50 mg PO BID [facility] Last Admin: 04/22/17 20:58 Dose: 50 mg Minoxidil (Minoxidil) 5 mg PO BID [facility] Last Admin: 04/22/17 20:57 Dose: 5 mg Nicotine (Nicoderm 21 Mg) 1 patch TD DAILY [facility] Last Admin: 04/22/17 09:43 Dose: 1 patch Non-Formulary Medication (Cyanocobalamin (Vitamin B-12) [B-12]) 500 mcg PO DAILY [facility] Last Admin: 04/22/17 09:52 Dose: Not Given Potassium Chloride (Micro-K Cap) 10 meq PO DAILY [facility] Last Admin: 04/22/17 09:44 Dose: 10 meq Prednisone (Prednisone) 20 mg PO BIDWM [facility] Last Admin: 04/22/17 16:36 Dose: 20 mg Pregabalin (Lyrica) 50 mg PO BID [facility] Last Admin: 04/22/17 20:58 Dose: 50 mg Roflumilast (Daliresp) 500 mcg PO DAILY [facility] Last Admin: 04/22/17 09:45 Dose: 500 mcg Rosuvastatin Calcium (Crestor) 20 mg PO BEDTIME [facility] Last Admin: 04/22/17 20:57 Dose: 20 mg Tiotropium Br/Olodaterol HCL (Stiolto Respimat IH Smilax) 2.5 mg IH DAILY Triamterene/HCTZ (Dyazide) 1 cap PO DAILY [facility] Last Admin: 04/22/17 09:45 Dose: 1 cap ALLERGIES No Known Allergies Allergy (Verified 03/31/17 17:29) NEW PRESCRIPTIONS: PREDNISONE 10 MG, TAKE TWO TABLETS (20 MG) BY MOUTH DAILY FOR 5 DAYS WITH FOOD, THEN TAKE ONE TABLET (10 MG) BY MOUTH DAILY FOR 5 DAYS WITH FOOD, THEN STOP KEFLEX 500 MG, TAKE ONE CAPSULE BY MOUTH THREE TIMES DAILY FOR 5 DAYS AMLODIPINE BESYLATE (NORVASC)5 MG, TAKE ONE TABLET BY MOUTH TWICE DAILY NICODERM 21 MG, APPLY ONE PATCH OVER NON-BONY AREAS DAILY FOR 6 WEEKS, THEN APPLY 14 MG PATCH DAILY X2 WEEKS, THEN APPLY 7 MG PATCH DAILY X 2 WEEKS. SMOKING: THE PATIENT IS A HEAVY SMOKER. SHE HAS VERBALIZED HER INTENT TO STOP SMOKING AND WILL USE THE NICODERM PATCH FOR ASSISTANCE. WE WILL CONTINUE TO PROVIDE ENCOURAGEMENT AND SUPPORT DURING FOLLOW UP VISITS. DISEASE SPECIFIC EDUCATION: COPD HYPERTENSION HOME MEDICATIONS NEW PRESCRIPTIONS ADVERSE EFFECTS ASSOCIATED WITH PRISON USE OF STEROIDS FOLLOW UP PULMONARY REHAB LAB REVIEW: 04/22/17 07:55 04/22/17 07:55 PLAN: DISCHARGE HOME TODAY RETURN TO SEE DR. BRITO IN HIS OFFICE ON 04/28/17 AT 1:45 P.M. ATTEND PULMONARY REHAB SCHEDULED RESUME YOUR HOME MEDICATIONS PER LIST PROVIDED BY THE NURSING STAFF DO NOT TAKE THE CEFDINIR (OMNICEF) NEW PRESCRIPTIONS PREDNISONE 10 MG, TAKE TWO TABLETS (20 MG) BY MOUTH DAILY FOR 5 DAYS WITH FOOD, THEN TAKE ONE TABLET (10 MG) BY MOUTH DAILY FOR 5 DAYS WITH FOOD, THEN STOP KEFLEX 500 MG, TAKE ONE CAPSULE BY MOUTH THREE TIMES DAILY FOR 5 DAYS AMLODIPINE BESYLATE (NORVASC)5 MG, TAKE ONE TABLET BY MOUTH TWICE DAILY NICODERM 21 MG, APPLY ONE PATCH OVER NON-BONY AREAS DAILY FOR 6 WEEKS, THEN APPLY 14 MG PATCH DAILY X2 WEEKS, THEN APPLY 7 MG PATCH DAILY X 2 WEEKS. ACTIVITY GET PLENTY OF REST AT HOME. GRADUALLY INCREASE YOUR ACTIVITY ACCORDING TO YOUR TOLERATION DO NOT SMOKE CIGARETTES DIET HEALTHY HEART SUMMARY THE PATIENT IS ALERT AND ORIENTED X3. SHE CURRENTLY RESIDES AT HOME WITH HER SPOUSE. SHE HAS RECENTLY BECOME MORE DEPENDENT ON ASSISTANCE FROM HER FAMILY FOR ADL'S. SHE HAS HOME OXYGEN AND A NEBULIZER FOR USE. WE OFFERED TO ARRANGE FOR HOME HEALTH NURSING AND PT/OT SERVICES IN HER HOME. SHE DECLINED THIS OFFER. SHE DESIRES TO RETURN HOME AT DISCHARGE. THE SKIN TURGOR IS FAIR. MS. BERMUDEZ HAS NO DECUBITUS ULCERS PRESENT. THE AREA OF ECCHYMOSIS TO THE LEFT CHIN EXTENDING TO THE NECK IS FADING. THERE ARE MULTIPLE AREAS OF BRUISING ON HER ARMS IN VARIOUS STAGES OF HEALING. MS. BERMUDEZ DESIRES FOR DISCHARGE TODAY. WE HAVE PROVIDED EXTENSIVE ENCOURAGEMENT AND INFORMATION REGARDING THE NEED FOR COMPLETE SMOKING CESSATION. SHE HAS NOT SMOKED DURING THIS ENTIRE ACUTE AND REHAB STAY. HER CLINICAL STATUS IS MORE IMPROVED A RESULT. SHE IS AGREEABLE TO USE THE NICODERM PATCH IN A TAPERING DOSE. WE WILL CONTINUE TO PROVIDE ENCOURAGEMENT FOR COMPLETE CESSATION OF TOBACCO USE WITH FOLLOW UP OFFICE VISITS. CURRENT CODE STATUS DO NOT INTUBATE CPR ONLY MILDRED TRAN APRN SIDDHARTHA BRITO M.D.
--- NOTE | 2017-04-23 11:12 | PCM.PROG ---
Attending Provider: ATTENDING PROVIDER: Dr. SIDDHARTHA BRITO This patient is seen with Rupal Perez, Nurse Practitioner. DATE OF SERVICE: 04/23/17 SUBJECTIVE: This 72 year old WHITE/ F was hospitalized 04/20/17. The patient is lying in bed, resting comfortably. Breathing is non labored. Both renal function and respiratory function have improved. REVIEW OF SYSTEMS: CONSTITUTIONAL: Weakness. No night sweats. No fever or chills. HEENT: Eyes: No visual changes. No eye pain. No eye discharge. ENT: No runny nose. No epistaxis. No sinus pain. No odynophagia. No congestion. RESPIRATORY: Cough. No congestion. No hemoptysis. No shortness of breath. CARDIOVASCULAR: No angina symptoms. No CHF symptoms. No atypical chest pain for CAD. No palpitations. No orthopnea.. GASTROINTESTINAL: No abdominal pain. No nausea or vomiting. No diarrhea or constipation. No hematemesis. No hematochezia. GENITOURINARY: No urgency. No frequency. No dysuria. No hematuria. No obstructive symptoms. No discharge. No pain. No significant abnormal bleeding. MUSCULOSKELETAL: No musculoskeletal pain; no joint swelling. NEUROLOGICAL: Awake, alert, oriented to time, place and person. No headache. No neck pain. No syncope. No seizures. No dizziness. PSYCHIATRIC: Not anxious. No depression. No suicidal thoughts. No homicidal thoughts. SKIN: No rash. No lesions. No wounds. ENDOCRINE: No unexplained weight loss. No weight gain. HEMATOLOGIC/LYMPHATIC: No anemia. No purpura. No petechiae. No prolonged or excessive bleeding. No palpable lymph nodes. PHYSICAL EXAMINATION: GENERAL: The patient is awake, alert and oriented, lying in bed in no distress. VITAL SIGNS: Temperature 98.7 F, Pulse 89, Respiratory Rate 18, BP 122/55, Pulse Ox 98% HEENT: Head normocephalic, atraumatic. Eyes: Extraocular muscles are intact. Pupils are equal, round and reactive to light and accommodation. Ears: No lesions. Nose appeared normal. Throat: No exudate or erythema. NECK: Supple. No JVD, no carotid bruit. No lymphadenopathy or thyromegaly. LUNGS: Diminished breath sounds bilaterally. Percussion note normal. Chest symmetrical. HEART: S1, S2, no S3. No murmurs. No cyanosis or clubbing. No ascites. Pulses: Dorsalis pedis and posterior tibial pulses +1 to +2 both sides. ABDOMEN: Soft. Non-tender. Bowel sounds active. No CVA tenderness. No mass felt. EXTREMITIES: No edema. Full range of motion of all extremities, equal. NEUROLOGIC: No focal deficit. Cranial nerves II through XII are grossly intact. No headache, no double vision or headache. SKIN: Not dry. Intact. Turgor-normal. LYMPHATIC: No palpable lymph nodes/no lymphedema. MUSCULOSKELETAL: Normal joints with no swelling. Muscle tone is normal. LAB REVIEW: 04/22/17 07:55 04/22/17 07:55 ASSESSMENT: 1. Respiratory failure, chronic 2. Acute renal failure improved 3. COPD 4. Anemia 5. Hypertension 6. Generalized weakness 7. Osteoarthritis 8. Anxiety PLAN: 1. Discharge home 2. Keflex 500 mg p.o. t.i.d. times five days 3. Prednisone 20 mg daily times five days then 10 mg daily for five days 4. PT at home 5. Home Health for PT/OT, nursing assessment. 6. Followup appointment to see Dr. Brito next week. Plan and coordination of the patient's care discussed in the presence of Supervisor Shipfitters and nurse. CONDITION: Stable SCRIBED BY: KENISHA FRY Programs Director scribed while in presence of service performed by Dr. Brito/Rupal Perez APRN on 04/23/17 ([id number])
--- NOTE | 2017-04-23 13:53 | RS.OTQKDC ---
OT Discharge Date of Discharge: 04/23/17 Number of Visits: 3 Reason for Discharge: Pt discharged from hospital to home with family.
--- NOTE | 2017-05-12 14:52 | DS ---
DATE OF SERVICE: 04/23/17 FINAL DIAGNOSIS: 1. RESPIRATORY FAILURE, ACUTE ON CHRONIC, RESOLVED 2. RENAL FAILURE, ACUTE, RESOLVED 3. FUNCTIONAL DECLINE SECONDARY TO ABOVE 4. COPD EXACERBATION 5. HYPERTENSION 6. ANEMIA (REQUIRED ONE UNIT PRBC TRANSFUSION, 04/13/17) 7. HYPOKALEMIA, REPLACED 8. ANXIETY/PANIC EPISODES 9. PULMONARY NODULE, [address] 10. NEUROPATHY 11. DYSLIPIDEMIA 12. DEPRESSION 13. 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 CAROTID OCCLUSIVE DISEASE 16. RENAL ARTERY STENOSIS 17. HYSTERECTOMY, 1989 18. AORTOILIAC BYPASS 19. AAA, 1997 20. LVH (LVEF 53%-ECHO, 11/02) 21. CURRENT EVERY DAY SMOKER LAST V/S: Temperature 98.7, pulse 89, respirations 18, BP 122/55, pulse ox 98 DISCHARGE INSTRUCTIONS: 1. Followup appointment with Dr. Dawson in his office on 04/28/17 at 1:45 p.m. 2. Attend pulmonary rehab as scheduled MEDICATIONS AT DISCHARGE: [place] 10-325, one tab p.o. t.i.d. p.r.n. Xanax 0.25 mg p.o. t.i.d. p.r.n. Brovana one vial IH q.12h p.r.n. Aspirin 81 mg p.o. daily with meal AYAD Coreg 25 mg p.o. b.i.d. with meal AYAD Cholecalciferol 400 unit p.o. daily AYAD Pletal 100 mg p.o. b.i.d. AYAD Catapres 0.1 mg p.o. b.i.d. AYAD Cymbalta 60 mg p.o. daily AYAD Lexapro 20 mg p.o. daily AYAD Ferrous Sulfate 324 mg p.o. b.i.d. AYAD Cozaar 50 mg p.o. b.i.d. AYAD Minoxidil 5 mg p.o. b.i.d. AYAD Nicoderm one patch TD daily AYAD Cyanocobalamin 500 mcg p.o. daily AYAD Micro-K 10 mEq p.o. daily AYAD Prednisone 20 mg p.o. b.i.d. with meal AYAD Lyrica 50 mg p.o. b.i.d. AYAD Daliresp 500 mcg p.o. daily AYAD Crestor 20 mg p.o. bedtime AYAD Stiolto Respimat IH 2.5 mg IH daily Dyazide one cap p.o. daily [facility] NEW PRESCRIPTIONS: 1. Prednisone 10 mg, take 2 tablets (20 mg) by mouth daily for five days with food then take one tablet (10 mg) by mouth daily for 5 days with food, then stop 2. Keflex 500 mg take one capsule by mouth three times daily for 5 days 3. Norvasc 5 mg one tablet p.o. twice daily 4. Nicoderm 21 mg one patch over non bony areas daily for 6 weeks then apply 14 mg patch daily times two weeks then apply 7 mg patch daily times 2 weeks DIET INSTRUCTIONS: Healthy Heart ACTIVITY: Get plenty of rest at home. Gradually increase your activity according to your toleration. SMOKING: The patient is a heavy smoker. She has verbalized her intent to stop smoking and will use the Nicoderm patch for assistance. We will continue to provide encouragement and support during follow up visits. 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 She was brought into the emergency room initially with respiratory failure, acute renal failure, dehydration, decline in function. Her had found her disoriented and less responsive and brought her to the emergency room. Her initial ABGs were very poor. She was initially placed on BIPAP for which she responded remarkably well. After the first four hours they were able to take the BIPAP off and put her on a Venti mask for which she remained for the next two days and then she has done remarkably well with oxygen via nasal cannula. She is actually down to 2L and is satting at 98%. Her ABGs at this point are better than they have been in years. She has been working with Physical Therapy as she was placed in the swing bed on the 2nd. On admission her chest x-ray did not reveal any pneumonia, just changes associated with COPD. Her kidney function was significantly elevated with creatinine of 2.9. We rehydrated her with D5 1/2 NS at 125 cc/hr. Her kidney function gradually improved and is almost back to normal with a BUN of 31, creatinine 1.08. Her hemoglobin has remained stable. She does have chronic anemia. She has remained stable from 8.5 to 9 during her stay, 8.7 at time of discharge. Hematocrit 25.6, white count 7.29. Sodium was low on admission as well as potassium. These are also normal on discharge. Sodium 142, potassium 4.8. It is to be noted that in a controlled environment, the patient has done remarkably well. She has responded well to our treatment. Her blood pressure has been controlled. Her anxiety has been controlled and she does have a history of panic attacks and takes Xanax three times a day. She has not smoked during her hospital stay which has been a significant advantage for her. The importance of not smoking was discussed in great detail given her poor prognosis due to chronic respiratory failure. Hopefully, the patient will go home and continue to abstain from smoking. For the past two days, she has been eating 75 to 100% of her meals. She has been up and about with Physical Therapy, doing well. Again she is down to 2L on her oxygen. Her blood pressure has been controlled at 122/55. Today her pulse ox is 98% on 2L. Her labs look good. The most recent ABGs: p02 was up, 02 sat was up. We will send her home. She had been on Rocephin 1 gm IV daily along with Vancomycin 500 mg q.12 IV for the first several days. We switched her to d/c Vancomycin and put her on p.o. Keflex as she will go home on p.o., Keflex 500 t.i.d. for five days along with Prednisone 20 mg daily times five days and then 10 mg daily for five. Initially she was started on Solu-Medrol 125 mg q.6hr. We were able to wean her off of this and for the past several days she has been on Prednisone 20 mg b.i.d. The patient has neb treatments at home which she will continue with her nebulizer, Xopenex at home and she will also resume all of her maintenance inhalers. She will be discharged home in stable condition and we will follow up with her next week. TIME SPENT: More than 60 minutes. KEVIN
== END 2017-04-23 12:16 | disposition home or self-care (01) | DRG 189 ==
LOC: SCU 15:00
PROVIDERS: ADMIT Internal Medicine; ATTEND Internal Medicine
DX: J96.20 Acute and chronic respiratory failure, unspecified whether with hypoxia or hypercapnia (principal); N17.9 Acute kidney failure, unspecified; J44.1 Chronic obstructive pulmonary disease with (acute) exacerbation; R53.81 Other malaise; I10 Essential (primary) hypertension; D64.9 Anemia, unspecified; E87.6 Hypokalemia; R53.1 Weakness; R91.1 Solitary pulmonary nodule; F41.0 Panic disorder [episodic paroxysmal anxiety]; I65.29 Occlusion and stenosis of unspecified carotid artery; I70.1 Atherosclerosis of renal artery; G62.9 Polyneuropathy, unspecified; E78.5 Hyperlipidemia, unspecified; M19.90 Unspecified osteoarthritis, unspecified site; M47.9 Spondylosis, unspecified; F17.210 Nicotine dependence, cigarettes, uncomplicated; Z79.899 Other long term (current) drug therapy
CPT/HCPCS: 36415; 80053; 85025; 94640; 97802

== ENCOUNTER 2017-04-29 14:45 | Inpatient (IN) ==
[2017-04-29] MEDS ORDERED: TYLENOL PO PRN (15:13)
[2017-04-29] MEDS ORDERED: ATROPINE SULFATE PFS IVP PRN (15:13)
[2017-04-29] MEDS ORDERED: VISTARIL INJ IM PRN (15:13)
[2017-04-29] MEDS ORDERED: NITROSTAT SL PRN (15:13)
[2017-04-29] MEDS ORDERED: MORPHINE 4 MG/ML VIAL IVP PRN (15:13)
[2017-04-29] MEDS ORDERED: DECADRON 4 MG/ML SDV IM STA (15:18)
[2017-04-29] MEDS ORDERED: LASIX IVP SCH (15:30)
[2017-04-29 15:31] VITALS: BMI 20.9
--- NOTE | 2017-04-29 15:45 | DI ---
EXAM: Single view of the chest. History: Short of breath Comparison: Chest radiograph 04/21/2007 Findings: Heart size is upper limits of normal. Atherosclerotic vascular calcifications. Emphysema a gain identified. The asymmetric hazy opacity over the left hemithorax is new. No appreciable pleura l fluid and no pneumothorax. No acute osseous abnormalities. Impression: Asymmetric hazy opacity over the left hemithorax could be due to asymmetric edema or pne umonia. Follow-up recommended.
[2017-04-29] MEDS: DEXTROSE 5%-1/2NS IV SOLUTION 1,000 ML IV SCH (15:50)
[2017-04-29] MEDS: ROCEPHIN 1 GM in SODIUM CHLORIDE 50 ML IV SCH (16:10)
[2017-04-29] MEDS: PLETAL PO SCH (17:27)
[2017-04-29] MEDS: COREG PO SCH (17:27)
[2017-04-29] MEDS: NICODERM 14 MG TD SCH (17:28)
[2017-04-29] MEDS ORDERED: NON-FORMULARY MEDICATION (Carvedilol [Coreg] 25 MG) PO SCH (17:30)
[2017-04-29] MEDS ORDERED: XOPENEX 1.25 MG NEB SCH (18:00)
[2017-04-29] MEDS ORDERED: NON-FORMULARY MEDICATION (Losartan Potassium 50 MG) PO SCH (21:00)
[2017-04-29] MEDS ORDERED: NON-FORMULARY MEDICATION (Hydrocodone Bit/Acetaminophen 1 TAB) PO SCH (21:00)
[2017-04-29] MEDS ORDERED: NON-FORMULARY MEDICATION (Ferrous Gluconate [Ferrous Gluconate] 324 MG) PO SCH (21:00)
[2017-04-29] MEDS: NORVASC PO SCH (21:23)
[2017-04-29] MEDS: MINOXIDIL PO SCH (21:23)
[2017-04-29] MEDS: CRESTOR PO SCH (21:23)
[2017-04-29] MEDS: COZAAR PO SCH (21:23)
[2017-04-29] MEDS: NORCO 10-325 PO SCH (21:23)
[2017-04-29] MEDS: FERROUS SULFATE PO SCH (21:24)
[2017-04-29] MEDS: CATAPRES PO SCH (21:24)
[2017-04-29] MEDS: XANAX PO PRN (21:24)
[2017-04-29] MEDS: LYRICA PO SCH (21:24)
[2017-04-29] MEDS: XOPENEX 1.25 MG NEB SCH (23:34)
[2017-04-30] MEDS: XOPENEX 1.25 MG NEB SCH ×4 (05:06→23:00)
[2017-04-30] MEDS: DEXTROSE 5%-1/2NS IV SOLUTION 1,000 ML IV SCH ×3 (05:47→23:27)
[2017-04-30] MEDS: LASIX IVP SCH (05:47)
[2017-04-30] MEDS: PLETAL PO SCH ×2 (05:47→17:43)
[2017-04-30] MEDS ORDERED: MICRO-K CAP PO SCH (09:00)
[2017-04-30] MEDS ORDERED: NON-FORMULARY MEDICATION (Duloxetine Hcl [Cymbalta] 60 MG) PO SCH (09:00)
[2017-04-30] MEDS ORDERED: NON-FORMULARY MEDICATION (Escitalopram Oxalate [Lexapro] 20 MG) PO SCH (09:00)
[2017-04-30] MEDS: NORCO 10-325 PO SCH ×2 (09:41→20:42)
[2017-04-30] MEDS: NICODERM 14 MG TD SCH (09:41)
[2017-04-30] MEDS: COZAAR PO SCH ×2 (09:41→20:41)
[2017-04-30] MEDS: ROCEPHIN 1 GM in SODIUM CHLORIDE 50 ML IV SCH (09:41)
[2017-04-30] MEDS: PREDNISONE PO SCH (09:42)
[2017-04-30] MEDS: MINOXIDIL PO SCH ×2 (09:42→20:42)
[2017-04-30] MEDS: CYMBALTA PO SCH (09:42)
[2017-04-30] MEDS: LYRICA PO SCH ×2 (09:42→20:42)
[2017-04-30] MEDS: K-DUR PO SCH ×2 (09:42→17:43)
[2017-04-30] MEDS: FERROUS SULFATE PO SCH ×2 (09:42→20:42)
[2017-04-30] MEDS: DALIRESP PO SCH (09:42)
[2017-04-30] MEDS: NORVASC PO SCH ×2 (09:42→20:42)
[2017-04-30] MEDS: LEXAPRO PO SCH (09:43)
[2017-04-30] MEDS: COREG PO SCH ×2 (09:43→17:42)
[2017-04-30] MEDS: CATAPRES PO SCH ×2 (09:43→20:41)
[2017-04-30] MEDS: NON-FORMULARY MEDICATION (Cyanocobalamin (Vitamin B-12) [B-12] 500 MCG) PO SCH (09:44)
[2017-04-30] MEDS: ASPIRIN CHEWABLE PO SCH (09:47)
--- NOTE | 2017-04-30 11:05 | PCM.PROG ---
Attending Provider: ATTENDING PROVIDER: Dr. SIDDHARTHA BRITO This patient is seen with Rupal Perez, Nurse Practitioner. DATE OF SERVICE: 04/30/17 SUBJECTIVE: This 72 year old WHITE/ F was hospitalized 04/29/17. The patient is lying in bed resting comfortably. Facial swelling is somewhat improved. She is in no respiratory distress. She ate 75% of her supper. REVIEW OF SYSTEMS: CONSTITUTIONAL: Weakness. No fever or chills. HEENT: Eyes: No visual changes. No eye pain. No eye discharge. ENT: No runny nose. No epistaxis. No sinus pain. No odynophagia. No congestion. RESPIRATORY: Shortness of breath. No cough, no congestion. No hemoptysis. CARDIOVASCULAR: No angina symptoms. No CHF symptoms. No atypical chest pain for CAD. No palpitations. No orthopnea.. GASTROINTESTINAL: No abdominal pain. No nausea or vomiting. No diarrhea or constipation. No hematemesis. No hematochezia. GENITOURINARY: No urgency. No frequency. No dysuria. No hematuria. No obstructive symptoms. No discharge. No pain. No significant abnormal bleeding. MUSCULOSKELETAL: No musculoskeletal pain; no joint swelling. NEUROLOGICAL: Sleepy. No headache. No neck pain. No syncope. No seizures. No dizziness. PSYCHIATRIC: Not anxious. No depression. No suicidal thoughts. No homicidal thoughts. SKIN: No rash. No lesions. No wounds. ENDOCRINE: No unexplained weight loss. No weight gain. HEMATOLOGIC/LYMPHATIC: No anemia. No purpura. No petechiae. No prolonged or excessive bleeding. No palpable lymph nodes. PHYSICAL EXAMINATION: GENERAL: The patient is resting comfortably, lying in bed in no distress. VITAL SIGNS: Temperature 97.9 F, Pulse 90, Respiratory Rate 18, BP 130/60, Pulse Ox 99% HEENT: Head normocephalic, atraumatic. Mild facial edema. Eyes: Extraocular muscles are intact. Pupils are equal, round and reactive to light and accommodation. Ears: No lesions. Nose appeared normal. Throat: No exudate or erythema. NECK: Supple. No JVD, no carotid bruit. No lymphadenopathy or thyromegaly. LUNGS: Diminished breath sounds bilaterally. Clear to auscultation. Percussion note normal. Chest symmetrical. HEART: S1, S2, no S3. No murmurs. No cyanosis or clubbing. No ascites. Pulses: Dorsalis pedis and posterior tibial pulses +1 to +2 both sides. ABDOMEN: Soft. Non-tender. Bowel sounds active. No CVA tenderness. No mass felt. EXTREMITIES: No leg edema. Full range of motion of all extremities, equal. NEUROLOGIC: No focal deficit. Cranial nerves II through XII are grossly intact. No headache, no double vision or headache. SKIN: Not dry. Intact. Turgor-normal. LYMPHATIC: No palpable lymph nodes/no lymphedema. MUSCULOSKELETAL: Normal joints with no swelling. Muscle tone is normal. LAB REVIEW: 04/30/17 04:25 04/30/17 04:25 04/30/17 04:25: Sodium 142, Potassium 3.3 L, Chloride 100, Carbon Dioxide 37 H, Anion Gap 8.3, BUN 17, Creatinine 1.01, Estimated GFR (MDRD) 54.00, BUN/ Creatinine Ratio 16.83, Glucose 218 H D, Calcium 8.7, Total Bilirubin 0.4, AST 11 L, ALT 17, Alkaline Phosphatase 40 L, Total Protein 5.2 L, Albumin 2.7 L, Globulin 2.5, Albumin/Globulin Ratio 1.08 04/30/17 04:25: WBC 3.93 L, RBC 2.74 L, Hgb 8.2 L, Hct 24.2 L, MCV 88.3, MCH 29.9, MCHC 33.9, RDW Coeff of Tr 15.2 H, Plt Count 89 L, Immature Gran % (Auto ) 1.0, Neut % (Auto) 83.5, Lymph % (Auto) 12.7, Gila % (Auto) 2.8, Eos % (Auto) 0.0, Baso % (Auto) 0.0, Immature Gran # (Auto) 0.0, Neut # 3.3, Lymph # 0.5 L, Gila # 0.1 L, Eos # 0.0, Baso # 0.0 04/29/17 23:09: Total Creatine Kinase 22, Troponin I 0.0510 04/29/17 16:34: Urine Color Yellow, Urine Clarity Clear, Urine pH 7.0, Ur Specific [place] 1.015, Urine Protein Trace, Urine Glucose (UA) Negative, Urine Ketones Negative, Urine Blood Trace-lysed, Urine Nitrite Negative, Urine Bilirubin Negative, Urine Urobilinogen 0.2, Ur Leukocyte Esterase Negative, Urine Microscopic RBC 0-2, Ur Squamous Epith Cells Not present 04/29/17 15:38: Sodium 143, Potassium 3.3 L, Chloride 101, Carbon Dioxide 34 H, Anion Gap 11.3, BUN 15, Creatinine 0.90, Estimated GFR (MDRD) 62.00, BUN/ Creatinine Ratio 16.66, Glucose 137 H, Calcium 9.4, Total Bilirubin 1.0, AST 15 , ALT 20, Alkaline Phosphatase 46 L, Total Creatine Kinase 25, Troponin I 0.0500 , Total Protein 5.8, Albumin 3.0 L, Globulin 2.8, Albumin/Globulin Ratio 1.07 04/29/17 15:38: WBC 7.70, RBC 2.96 L, Hgb 8.9 L, Hct 26.2 L, MCV 88.5, MCH 30.1 , MCHC 34.0, RDW Coeff of Tr 15.6 H, Plt Count 99 L, Immature Gran % (Auto) 0.9 , Neut % (Auto) 76.7, Lymph % (Auto) 12.3, Gila % (Auto) 8.8, Eos % (Auto) 1.2, Baso % (Auto) 0.1, Immature Gran # (Auto) 0.1, Neut # 5.9, Lymph # 1.0, Gila # 0.7, Eos # 0.1, Baso # 0.0 04/29/17 15:17: Puncture Site Rr, O2 Saturation 96.0, ABG pH 7.499 H, ABG pCO2 46.1 H, ABG pO2 79.0 L, ABG HCO3 35.8 H, ABG Total CO2 37 H, ABG Base Excess 13 H, Miki Test +, O2 Delivery Device Nc, Oxygen Liter Flow 3.00 ASSESSMENT: 1. Generalized weakness 2. Acute respiratory failure 3. Anemia 4. Severe COPD 5. Hypokalemia PLAN: 1. Potassium 40 mg b.i.d. times two days 2. Decrease IV fluids to 50 mL/hr 3. PT evaluation Plan and coordination of the patient's care discussed in the presence of Steam Table Associate and nurse. CONDITION: Stable SCRIBED BY: KENISHA FRY Marble Finisher scribed while in presence of service performed by Dr. Brito/Rupal Perez APRN on 04/30/17 ([id number])
--- NOTE | 2017-04-30 11:37 | RS.OTINEVL ---
Subjective - Patient information Date of Evaluation: 04/30/17 Date of Arrival on Unit: 04/29/17 Admitted From:: Emergency Dept Usual Living Arrangement: With Spouse Living Arrangement Comments: Lives with spouse Home Environment: House, Stairs (few) Medical History: Hypertension, COPD Medical History Comments:: Anxiety /Depression, meningioma frontal lobe Surgical History: Hysterectomy Surgical History Comments:: Vein bypass LE's Subjective Information/ Patient Comments:: "I guess." "I am glad that we did the walk." - Level of function Prior to this admission, the patient could do the following:: Independent Ambulation Abilities prior to this admission: Pt was at home dressing herself. Pt was walking with a RW. Pt was bathing herself sitting on a bench. Current Level of Function: Partially Dependent Current Equipment Used at Home: walker, oxygen, nebulizer Pain Assessment - Pain Pain Score: 0 Interventions - Objective Patient Orientation: Person, Place, Situation Current Interventions: IV's, Oxygen, Telemetry, Bonds Catheter Observation: Pt is short of air with activity. Pt is independent with bed mobility. Pt is minimal assistance for functional transfers with O2, IV pole, and catheter bag. Interventions - ROM Right Upper Extremity AROM: Slight limitation Left Upper Extremity AROM: Slight limitation - Strength Right Upper Extremity Strength: Mild Weakness Left Upper Extremity Strength: Mild Weakness - Sensation Right Upper Extremity Sensation: Intact/Normal Left Upper Extremity Sensation: Intact/Normal Balance - Sitting Balance Static Sitting Balance: Good Dynamic Sitting Balance: Fair - Standing Balance Static Standing Balance: Fair Dynamic Standing Balance: Fair ADL Skills - Grooming Grooming: Min Assist - Bathing Bathing UE: Min Assist Bathing LE: Min Assist - Dressing Dressing UE: CGA Dressing LE: Min Assist - Toilet Management Toileting Management: CGA Functional Mobility - Bed Mobility Rolling R/L: Independent Scooting: Independent Supine to Sit: Independent Sit to Supine: Independent - Transfers Sit to Stand: Min Assist Stand to Sit: Min Assist Stand Pivot Transfers: Min Assist Additional Treatment Performed - Time with patient Total treatment time: 20 Activities Patient Interests:: Watching Television, Visiting/Socializing Patient Education Patient Education: Education of diagnosis, Home Exercise Program, Education of Plan of Care Teaching Recipient: Patient Teaching Methods: Discussion Assessment Problem List:: Decreased level of function, Decreased safety/Risk of falls, Weakness Rehab Potential: Good Further Therapy Indicated?: Yes Short Term Goals - Goals GOAL 1: To tolerate 15 minutes of standing activity. Goal to be met by: 05/07/17 Progress towards goal: Not Met GOAL 2: Pt to increase BUE strength to 4/5. Goal to be met by: 05/07/17 Progress towards goal: Not Met GOAL 3: Pt to be independent with home exercise program. Goal to be met by: 05/07/17 Progress towards goal: Not Met College Sports Coach Goals GOAL 1: To tolerate 20 minutes of standing activity. Goal to be met by: 05/14/17 Progress towards goal: Not Met GOAL 2: Pt to increase BUE strength to 4+/5. Goal to be met by: 05/14/17 Progress towards goal: Not Met GOAL 3: Pt to be modified independent with ambulation with RW. Goal to be met by: 05/14/17 Progress towards goal: Not Met Plan Plan of Care: Therapeutic EX, Neuromuscular Re-Educ, Therapeutic Activity, Self- Care/Home Management Frequency of Treatment: 1-2 X day, as tolerated Duration of Treatment: 2 Weeks Anticipated Discharge Destination: Home Has the Physician been added for Co-signature?: Yes
--- NOTE | 2017-04-30 11:39 | RS.PTINEVL ---
Subjective - Patient information Date of Evaluation: 04/30/17 Date of Arrival on Unit: 04/29/17 Usual Living Arrangement: With Spouse Living Arrangement Comments: Lives with spouse Home Environment: House, Stairs (few) Medical History: Hypertension, COPD Medical History Comments:: Anxiety /Depression, meningioma frontal lobe Surgical History: Hysterectomy Surgical History Comments:: Vein bypass LE's Subjective Information/ Patient Comments:: Patient denies dizziness. States she has been using a wheeled walker at home. Reports shortness of breath with all movement. - Level of function Prior to this admission, the patient could do the following:: Independent Ambulation Abilities prior to this admission: Spouse helps as needed with ADL's. Current Level of Function: Partially Dependent Current Equipment Used at Home: walker, oxygen, nebulizer Interventions - Objective Patient Orientation: Person, Place, Time, Situation Current Interventions: IV's, Oxygen, Telemetry, Bonds Catheter Range of Motion - ROM Comments:: LE AROM is WFL's. Muscle Strength - Muscle Strength Comments:: General muscle strength of hips 4/5, knees 4/5, ankles 4/5. Sensation - Sensation Comments: Reports impaired sensation along anterior lower leg and feet bilaterally. Balance - Sitting Balance and Reactions Static Sitting Balance: Good Dynamic Sitting Balance: Good - Standing Balance and Reactions Static Standing Balance: Good (-) Dynamic Standing Balance: Good (-) Functional Mobility - Bed Mobility Rolling R/L: Independent Scooting: Independent Supine to Sit: Independent Sit to Supine: Independent - Transfers Sit to Stand: Supervision, 2 person assist, Verbal Cues, Tactile Cues Stand to Sit: Supervision Stand Pivot Transfers: Supervision - Safety Awareness Safety Awareness: Fair (verbal cues given for safety but do not carry over within minutes of same activity) Ambulation - Ambulation Weight Bearing Status: FWB Assistive Device Used: Rolling Walker Distance: 125 feet Assistance needed with Ambulation: Supervision, CGA (for oxygen tank and IV pole ), 2 person assist, Tactile Cues Gait Deviations: Forward posture Treatment time - Time with patient Total treatment time: 14 (mins) Patient Education - Education Patient Education: Home Safety Teaching Recipient: Patient Teaching Methods: Discussion Assessment - Assessment Problem List:: Decreased safety/Risk of falls Further Therapy Indicated?: Yes Comments: Patient very high functioning with bed mobility, transfers, and ambulation. Her breathing appears to be her primary limitation. Occupational Therapy will be continuing treatment. Plan Frequency of Treatment: One time treatment Duration of Treatment: One Time Treatment Anticipated Discharge Destination: Home Has the Physician been added for Co-signature?: Yes
[2017-04-30] MEDS: XANAX PO PRN ×2 (11:42→20:43)
[2017-04-30] MEDS: CRESTOR PO SCH (20:42)
[2017-05-01] MEDS: XOPENEX 1.25 MG NEB SCH ×4 (05:25→23:02)
[2017-05-01] MEDS: PLETAL PO SCH ×2 (05:37→17:01)
[2017-05-01] MEDS: LASIX IVP SCH (05:37)
[2017-05-01] MEDS: LEXAPRO PO SCH (08:48)
[2017-05-01] MEDS: LYRICA PO SCH ×2 (08:48→21:39)
[2017-05-01] MEDS: ASPIRIN CHEWABLE PO SCH (08:48)
[2017-05-01] MEDS: PREDNISONE PO SCH (08:49)
[2017-05-01] MEDS: FERROUS SULFATE PO SCH ×2 (08:49→21:39)
[2017-05-01] MEDS: NORCO 10-325 PO SCH ×2 (08:49→21:39)
[2017-05-01] MEDS: NORVASC PO SCH (08:49)
[2017-05-01] MEDS: MINOXIDIL PO SCH ×2 (08:49→21:39)
[2017-05-01] MEDS: XANAX PO PRN ×2 (08:49→16:59)
[2017-05-01] MEDS: COZAAR PO SCH ×2 (08:50→21:40)
[2017-05-01] MEDS: CATAPRES PO SCH (08:50)
[2017-05-01] MEDS: DALIRESP PO SCH (08:50)
[2017-05-01] MEDS: K-DUR PO SCH ×2 (08:51→17:37)
[2017-05-01] MEDS: ROCEPHIN 1 GM in SODIUM CHLORIDE 50 ML IV SCH (08:51)
[2017-05-01] MEDS: CYMBALTA PO SCH (08:51)
[2017-05-01] MEDS: COREG PO SCH ×2 (08:51→17:44)
[2017-05-01] MEDS: NICODERM 14 MG TD SCH (08:52)
[2017-05-01] MEDS: PROTONIX PO SCH (14:20)
[2017-05-01] MEDS: NON-FORMULARY MEDICATION (Cyanocobalamin (Vitamin B-12) [B-12] 500 MCG) PO SCH (17:03)
[2017-05-01] MEDS: CRESTOR PO SCH (21:39)
[2017-05-02] MEDS: DEXTROSE 5%-1/2NS IV SOLUTION 1,000 ML IV SCH ×2 (03:17→22:42)
[2017-05-02] MEDS: PLETAL PO SCH ×2 (05:39→16:31)
[2017-05-02] MEDS: PROTONIX PO SCH (05:39)
[2017-05-02] MEDS: LASIX IVP SCH (05:39)
[2017-05-02] MEDS: XOPENEX 1.25 MG NEB SCH ×4 (06:00→23:33)
[2017-05-02] MEDS: ROCEPHIN 1 GM in SODIUM CHLORIDE 50 ML IV SCH (09:21)
[2017-05-02] MEDS: LEXAPRO PO SCH (09:22)
[2017-05-02] MEDS: COZAAR PO SCH ×2 (09:22→20:42)
[2017-05-02] MEDS: ASPIRIN CHEWABLE PO SCH (09:22)
[2017-05-02] MEDS: COREG PO SCH ×2 (09:22→16:31)
[2017-05-02] MEDS: MINOXIDIL PO SCH ×2 (09:22→20:42)
[2017-05-02] MEDS: DALIRESP PO SCH (09:23)
[2017-05-02] MEDS: LYRICA PO SCH ×2 (09:23→20:42)
[2017-05-02] MEDS: CATAPRES PO SCH (09:24)
[2017-05-02] MEDS: FERROUS SULFATE PO SCH ×2 (09:24→20:41)
[2017-05-02] MEDS: NORCO 10-325 PO SCH (09:24)
[2017-05-02] MEDS: PREDNISONE PO SCH (09:24)
[2017-05-02] MEDS: XANAX PO PRN ×2 (09:24→16:31)
[2017-05-02] MEDS: CYMBALTA PO SCH (09:25)
[2017-05-02] MEDS: NICODERM 14 MG TD SCH (09:25)
[2017-05-02] MEDS ORDERED: NORCO 5-325 PO SCH ×2 (11:30→14:30)
[2017-05-02] MEDS: NON-FORMULARY MEDICATION (Cyanocobalamin (Vitamin B-12) [B-12] 500 MCG) PO SCH (18:28)
[2017-05-02] MEDS ORDERED: NORCO 5-325 ONE (19:58)
[2017-05-02] MEDS: NORVASC PO SCH (20:41)
[2017-05-02] MEDS: CRESTOR PO SCH (20:42)
[2017-05-03] MEDS: K-DUR PO SCH (00:07)
[2017-05-03] MEDS: XOPENEX 1.25 MG NEB SCH ×3 (04:48→17:36)
[2017-05-03] MEDS: PLETAL PO SCH ×2 (05:30→16:52)
[2017-05-03] MEDS: LASIX IVP SCH (05:30)
[2017-05-03] MEDS: PROTONIX PO SCH (05:30)
[2017-05-03] MEDS: NICODERM 14 MG TD SCH (09:43)
[2017-05-03] MEDS: ASPIRIN CHEWABLE PO SCH (09:44)
[2017-05-03] MEDS: CATAPRES PO SCH (09:44)
[2017-05-03] MEDS: LYRICA PO SCH ×2 (09:45→20:27)
[2017-05-03] MEDS: COREG PO SCH ×2 (09:45→16:52)
[2017-05-03] MEDS: COZAAR PO SCH ×2 (09:45→20:27)
[2017-05-03] MEDS: PREDNISONE PO SCH (09:46)
[2017-05-03] MEDS: DALIRESP PO SCH (09:46)
[2017-05-03] MEDS: MINOXIDIL PO SCH ×2 (09:46→20:27)
[2017-05-03] MEDS: LEXAPRO PO SCH (09:46)
[2017-05-03] MEDS: NORCO 5-325 PO SCH ×2 (09:47→20:27)
[2017-05-03] MEDS: CYMBALTA PO SCH (09:47)
[2017-05-03] MEDS: FERROUS SULFATE PO SCH ×2 (09:47→20:27)
[2017-05-03] MEDS: ROCEPHIN 1 GM in SODIUM CHLORIDE 50 ML IV SCH (09:48)
[2017-05-03] MEDS: NON-FORMULARY MEDICATION (Cyanocobalamin (Vitamin B-12) [B-12] 500 MCG) PO SCH (09:55)
--- NOTE | 2017-05-03 11:42 | PN ---
DATE OF SERVICE: 05/01/17 SUBJECTIVE: 72 year old white female hospitalized with acute respiratory failure and confusion. The patient's condition has steadily improved. She feels a lot better. She is sitting up in the chair and eating her lunch. Her facial edema has practically subsided. REVIEW OF SYSTEMS: CONSTITUTIONAL: No night sweats. No fatigue, malaise, lethargy. No fever or chills. HEENT: Eyes: No visual changes. No eye pain. No eye discharge. ENT: No runny nose. No epistaxis. No sinus pain. No sore throat. No odynophagia. No congestion. RESPIRATORY: No cough, no congestion. No hemoptysis. No shortness of breath. CARDIOVASCULAR: No angina symptoms. No CHF symptoms. No atypical chest pain for CAD. No palpitations. No orthopnea. No PND. GASTROINTESTINAL: No abdominal pain. No nausea or vomiting. No diarrhea or constipation. No hematemesis. No hematochezia. Appetite has improved. GENITOURINARY: No urgency. No frequency. No dysuria. No hematuria. No obstructive symptoms. No discharge. No pain. No significant abnormal bleeding. MUSCULOSKELETAL: No musculoskeletal pain; no joint swelling. NEUROLOGICAL: No headache. No neck pain. No syncope. No seizures. No dizziness. PSYCHIATRIC: Not anxious. No depression. No suicidal thoughts. No homicidal thoughts. SKIN: No rash. No lesions. No wounds. ENDOCRINE: No unexplained weight loss. No weight gain. HEMATOLOGIC/LYMPHATIC: No anemia. No purpura. No petechiae. No prolonged or excessive bleeding. No palpable lymph nodes. PHYSICAL EXAMINATION: VITAL SIGNS: Temperature 97, pulse 84, respiratory rate 16, blood pressure 106/ 38 and pulse ox 99%. HEENT: Head normocephalic, atraumatic. Eyes: Extraocular muscles are intact. Pupils are equal, round and reactive to light and accommodation. Ears: No lesions. Nose appeared normal. Throat: No exudate or erythema. NECK: Supple. No JVD, no carotid bruit. No lymphadenopathy or thyromegaly. LUNGS: Decreased breath sounds but good air entry. Percussion note normal. Chest symmetrical. HEART: S1, S2, no S3. No murmurs. No cyanosis or clubbing. No ascites. Pulses: Dorsalis pedis and posterior tibial pulses +1 to +2 both sides. ABDOMEN: Soft. Nontender. Bowel sounds active. No CVA tenderness. No mass felt. EXTREMITIES: No edema. Full range of motion of all extremities, equal. NEUROLOGIC: No focal deficit. Cranial nerves II through XII are grossly intact. No headache, no double vision or headache. SKIN: Not dry. Intact. Turgor - normal. LYMPHATIC: No palpable lymph nodes/no lymphedema. MUSCULOSKELETAL: Normal joints with no swelling. Muscle tone is normal. LABS: Hgb 7.8, hct 23, WBC 8,400 normal differential, creatinine 1.8, BUN 25. ASSESSMENT: 1. Acute respiratory failure, under control 2. Chronic respiratory failure 3. Severe chronic lung disease with continued smoking, she is on nicotine patch. The patient says that she misses to smoke and she wishes that she could go out and smoke. 4. Chronic kidney disease 5. Severe anemia, the patient is symptomatic from anemia with extreme shortness of breath and weakness according to her. PLAN: 1. Will given two units of packed red cells 2. Will add Protonix as she is complaining of reflux disease 3. No evidence of active GI bleed 4. Will do atrial blood gasses on 2 liters. 5. ABG will be done in the morning on room air. 6. Blood pressure is on lower side so we will decrease the Norvasc to 5mg at night and Clonidine 0.1mg QAM. CONDITION: seems to be stable, improving but some of the medical conditions are still to be treated. PROGNOSIS: Depends on patient's smoking problems that she needs to control. Her dementia gets worse with Hypoxemia. Keeps asking what is the problem with her for past several years. Off and on depending up on her level of hypoxemia. I explain to her all over again what her medical conditions are and how to be helped. She also mixed up her medication, tries to help but not enough. TIME SPENT: More than 30 minutes. Plan and coordination of the patient's care discussed in the presence of nurse. KEVIN
--- NOTE | 2017-05-03 11:43 | PCM.PROG ---
Attending Provider: ATTENDING PROVIDER: Dr. SIDDHARTHA DAWSON This patient is seen with Rupal Perez, Nurse Practitioner. DATE OF SERVICE: 05/03/17 SUBJECTIVE: This 72 year old WHITE/ F was hospitalized 04/29/17. The patient is lying in bed, alert in no respiratory distress. Shortness of breath as usual. REVIEW OF SYSTEMS: CONSTITUTIONAL: Weakness and fatigue. No night sweats. No fever or chills. HEENT: Eyes: No visual changes. No eye pain. No eye discharge. ENT: No runny nose. No epistaxis. No sinus pain. No odynophagia. No congestion. RESPIRATORY: No cough, no congestion. No hemoptysis. Shortness of breath. CARDIOVASCULAR: No angina symptoms. No CHF symptoms. No atypical chest pain for CAD. No palpitations. No orthopnea.. GASTROINTESTINAL: No abdominal pain. No nausea or vomiting. No diarrhea or constipation. No hematemesis. No hematochezia. GENITOURINARY: Bonds in place. No urgency. No frequency. No dysuria. No hematuria. No obstructive symptoms. No discharge. No pain. No significant abnormal bleeding. MUSCULOSKELETAL: No musculoskeletal pain; no joint swelling. NEUROLOGICAL: Awake, alert, oriented to time, place and person. No headache. No neck pain. No syncope. No seizures. No dizziness. PSYCHIATRIC: Not anxious. No depression. No suicidal thoughts. No homicidal thoughts. SKIN: No rash. No lesions. No wounds. ENDOCRINE: No unexplained weight loss. No weight gain. HEMATOLOGIC/LYMPHATIC: No anemia. No purpura. No petechiae. No prolonged or excessive bleeding. No palpable lymph nodes. PHYSICAL EXAMINATION: GENERAL: The patient is awake, alert and oriented, lying in bed in no distress. VITAL SIGNS: Temperature 98.0 F, Pulse 97, Respiratory Rate 16, BP 157/58, Pulse Ox 98% HEENT: Head normocephalic, atraumatic. Eyes: Extraocular muscles are intact. Pupils are equal, round and reactive to light and accommodation. Ears: No lesions. Nose appeared normal. Throat: No exudate or erythema. NECK: Supple. No JVD, no carotid bruit. No lymphadenopathy or thyromegaly. LUNGS: Diminished breath sounds bilaterally. Clear to auscultation. Percussion note normal. Chest symmetrical. HEART: S1, S2, no S3. No murmurs. No cyanosis or clubbing. No ascites. Pulses: Dorsalis pedis and posterior tibial pulses +1 to +2 both sides. ABDOMEN: Soft. Non-tender. Bowel sounds active. No CVA tenderness. No mass felt. EXTREMITIES: No edema. Full range of motion of all extremities, equal. NEUROLOGIC: No focal deficit. Cranial nerves II through XII are grossly intact. No headache, no double vision or headache. SKIN: Not dry. Intact. Turgor-normal. LYMPHATIC: No palpable lymph nodes/no lymphedema. MUSCULOSKELETAL: Normal joints with no swelling. Muscle tone is normal. LAB REVIEW: 05/03/17 04:30 05/03/17 04:30 05/03/17 04:30: Sodium 142, Potassium 4.5, Chloride 106, Carbon Dioxide 32 H, Anion Gap 8.5, BUN 28 H, Creatinine 1.41 H D, Estimated GFR (MDRD) 37.00, BUN/ Creatinine Ratio 19.85, Glucose 109, Calcium 8.9, Total Bilirubin 0.3, AST 14 L , ALT 35, Alkaline Phosphatase 42 L, Total Protein 5.3 L, Albumin 2.8 L, Globulin 2.5, Albumin/Globulin Ratio 1.12 05/03/17 04:30: WBC 7.24, RBC 3.52 L, Hgb 10.5 L, Hct 31.0 L, MCV 88.1, MCH 29.8 , MCHC 33.9, RDW Coeff of Tr 15.2 H, Plt Count 71 L, Immature Gran % (Auto) 0.6 , Neut % (Auto) 76.7, Lymph % (Auto) 13.3, [place] % (Auto) 9.3, Eos % (Auto) 0.0, Baso % (Auto) 0.1, Immature Gran # (Auto) 0.0, Neut # 5.6, Lymph # 1.0, [place] # 0.7, Eos # 0.0, Baso # 0.0 ASSESSMENT: 1. Generalized weakness 2. Acute respiratory failure, improving 3. Anemia 4. Severe COPD 5. Hypokalemia, resolved PLAN: 1. Continue IV fluids and antibiotics Plan and coordination of the patient's care discussed in the presence of Ring Rolling Machine Operator and nurse. CONDITION: Stable SCRIBED BY: KENISHA FRY Care Mgr scribed while in presence of service performed by Dr. Dawson/Rupal Perez APRN on 05/03/17 ([id number])
--- NOTE | 2017-05-03 13:34 | PN ---
DATE OF SERVICE: 05/02/17 SUBJECTIVE: 72 year old white female was hospitalized with acute respiratory failure and face swelling. The patient was confused, demented, hypoxic. The patient has continued to smoke at home. The has a very poor understanding about her medicines and he has been administering the medications as he pleases. He has his own explanations about the medication and the thinks that the patient has been on too much medication but again has not been restricting her [place]. This morning this patient is sleepy and somewhat drowsy but according to the nursing staff she had good breakfast and she is talking plainly with oxygen saturation 98% on room air. On her blood gasses it looked like she was hyperventilating with metabolic alkalosis with CO2 retention from likely drug effects. The plan will be to decrease her [place] to 5-325 three times a day and administer Xanax as PRN. REVIEW OF SYSTEMS: CONSTITUTIONAL: No night sweats. Weakness and fatigue. No fever or chills. HEENT: Eyes: No visual changes. No eye pain. No eye discharge. ENT: No runny nose. No epistaxis. No sinus pain. No sore throat. No odynophagia. No congestion. RESPIRATORY: No cough, no congestion. No hemoptysis. Shortness of breath on minimal exertion. CARDIOVASCULAR: No angina symptoms. No CHF symptoms. No atypical chest pain for CAD. No palpitations. No orthopnea. GASTROINTESTINAL: No abdominal pain. No nausea or vomiting. No diarrhea or constipation. No hematemesis. No hematochezia. Appetite has improved. GENITOURINARY: No urgency. No frequency. No dysuria. No hematuria. No obstructive symptoms. No discharge. No pain. No significant abnormal bleeding. MUSCULOSKELETAL: No musculoskeletal pain; no joint swelling. In ability to walk on her own. NEUROLOGICAL: No headache. No neck pain. No syncope. No seizures. No dizziness. PSYCHIATRIC: Not anxious. No depression. No suicidal thoughts. No homicidal thoughts. SKIN: No rash. No lesions. No wounds. ENDOCRINE: No unexplained weight loss. No weight gain. HEMATOLOGIC/LYMPHATIC: No anemia. No purpura. No petechiae. No prolonged or excessive bleeding. No palpable lymph nodes. PHYSICAL EXAMINATION: GENERAL: The patient is oriented to person and place. VITAL SIGNS: Temperature 98.8, pulse 84, respiratory rate 14, blood pressure 110/60 and pulse ox 98% on room air. HEENT: Head normocephalic, atraumatic. Eyes: Extraocular muscles are intact. Pupils are equal, round and reactive to light and accommodation. Ears: No lesions. Nose appeared normal. Throat: No exudate or erythema. NECK: Supple. No JVD, no carotid bruit. No lymphadenopathy or thyromegaly. LUNGS: Decreased breath sounds but clear to auscultation. Percussion note normal. Chest symmetrical. HEART: S1, S2, no S3. No murmurs. No cyanosis or clubbing. No ascites. Pulses: Dorsalis pedis and posterior tibial pulses +1 to +2 both sides. ABDOMEN: Soft. Nontender. Bowel sounds active. No CVA tenderness. No mass felt. EXTREMITIES: No edema. Full range of motion of all extremities, equal. NEUROLOGIC: No focal deficit. Cranial nerves II through XII are grossly intact. No headache, no double vision or headache. SKIN: Not dry. Intact. Turgor - normal. LYMPHATIC: No palpable lymph nodes/no lymphedema. MUSCULOSKELETAL: Normal joints with no swelling. Muscle tone is normal. LABS: Hgb 10, hct 28, WBC 7,000 normal differential, creatinine 1.9, BUN 33, potassium 5.2 we will discontinue Potassium the order has already been given ASSESSMENT: 1. Respiratory failure seems to be resolving. 2. Metabolic acidosis likely from hypoventilation 3. Severe chronic lung disease with smoking 4. Peripheral arterial disease 5. Dementia which is vascular 6. Chronic kidney disease 7. Anemia PLAN: 1. Discontinue potassium supplement 2. Minoxidil 2.5mg PO twice a day instead of 5 3. The Norvasc dose was reduced along with Clonidine yesterday, still the blood pressure is 110 systolic. 4. The was again educated about all her medical problems 5. Will decrease [place] to 5-325 three times a day 6. We will make Xanax as PRN 7. Hgb is stable with blood transfusion. The patient is not stable enough to have any further investigation in the way of EGD or colonoscopy. There is no evidence of active GI bleed. Likely cause is nutritional and also probably gastritis. The patient has severe reflux problems. She has been on Protonix. 8. Reflux disease discussed with the patient and advised to quit coffee, caffeine and smoking CONDITION: Stable PROGNOSIS: Poor TIME SPENT: More than 30 minutes. Plan and coordination of the patient's care discussed in the presence of nurse. KEVIN
[2017-05-03] MEDS: DEXTROSE 5%-1/2NS IV SOLUTION 1,000 ML IV SCH ×2 (17:52)
[2017-05-03] MEDS: NORVASC PO SCH (20:27)
[2017-05-03] MEDS: CRESTOR PO SCH (20:27)
[2017-05-04] MEDS: XOPENEX 1.25 MG NEB SCH ×5 (00:24→23:20)
[2017-05-04] MEDS: PROTONIX PO SCH (05:40)
[2017-05-04] MEDS: PLETAL PO SCH ×2 (05:40→17:37)
[2017-05-04] MEDS: LASIX IVP SCH (05:40)
[2017-05-04] MEDS: ROCEPHIN 1 GM in SODIUM CHLORIDE 50 ML IV SCH (08:42)
[2017-05-04] MEDS: CATAPRES PO SCH (08:43)
[2017-05-04] MEDS: ASPIRIN CHEWABLE PO SCH (08:43)
[2017-05-04] MEDS: NORCO 5-325 PO SCH ×2 (08:43→21:36)
[2017-05-04] MEDS: LYRICA PO SCH ×2 (08:43→21:36)
[2017-05-04] MEDS: FERROUS SULFATE PO SCH ×2 (08:43→21:35)
[2017-05-04] MEDS: DALIRESP PO SCH (08:43)
[2017-05-04] MEDS: COREG PO SCH ×2 (08:43→17:37)
[2017-05-04] MEDS: COZAAR PO SCH ×2 (08:44→21:36)
[2017-05-04] MEDS: PREDNISONE PO SCH (08:44)
[2017-05-04] MEDS: CYMBALTA PO SCH (08:44)
[2017-05-04] MEDS: LEXAPRO PO SCH (08:44)
[2017-05-04] MEDS: MINOXIDIL PO SCH ×2 (08:44→21:36)
[2017-05-04] MEDS: NICODERM 14 MG TD SCH (08:45)
[2017-05-04] MEDS: NON-FORMULARY MEDICATION (Cyanocobalamin (Vitamin B-12) [B-12] 500 MCG) PO SCH (08:50)
[2017-05-04] MEDS: XANAX PO PRN (13:45)
[2017-05-04] MEDS: CRESTOR PO SCH (21:35)
[2017-05-04] MEDS: NORVASC PO SCH (21:36)
[2017-05-05] MEDS: XOPENEX 1.25 MG NEB SCH ×4 (05:04→23:20)
[2017-05-05] MEDS: PROTONIX PO SCH (05:51)
[2017-05-05] MEDS: PLETAL PO SCH ×2 (05:51→18:07)
[2017-05-05] MEDS: LASIX IVP SCH (05:51)
[2017-05-05] MEDS: XANAX PO PRN ×2 (05:57→23:05)
[2017-05-05] MEDS: ROCEPHIN 1 GM in SODIUM CHLORIDE 50 ML IV SCH (10:52)
--- NOTE | 2017-05-05 10:53 | PCM.PROG ---
Attending Provider: ATTENDING PROVIDER: Dr. SIDDHARTHA BRITO DATE OF SERVICE: 05/05/17 SUBJECTIVE: This 72 year old WHITE/ F was hospitalized 04/29/17. The patient is doing well. ABG on room air ph 7.48 p02 50, pc02 50 with HC03 of 38 indicating chronic respiratory failure compensated. These blood gases were on room air with 87% sat. Overall improved, not in distress. The patient is oriented times three with history of dementia that worsens with hypoxemia. Strongly advised to stop smoking. Advised not to overdose on narcotics. [place] is decreased to 5 mg and is tolerating well. REVIEW OF SYSTEMS: CONSTITUTIONAL: No night sweats. No fatigue, malaise, lethargy. No fever or chills. HEENT: Eyes: No visual changes. No eye pain. No eye discharge. ENT: No runny nose. No epistaxis. No sinus pain. No odynophagia. No congestion. RESPIRATORY: No cough, no congestion. No hemoptysis. Shortness of breath on minimal exertion. CARDIOVASCULAR: No angina symptoms. No CHF symptoms. No atypical chest pain for CAD. No palpitations. No orthopnea.. GASTROINTESTINAL: No abdominal pain. No nausea or vomiting. No diarrhea or constipation. No hematemesis. No hematochezia. GENITOURINARY: No urgency. No frequency. No dysuria. No hematuria. No obstructive symptoms. No discharge. No pain. No significant abnormal bleeding. MUSCULOSKELETAL: No musculoskeletal pain; no joint swelling. NEUROLOGICAL: Awake, alert, oriented to place and person. No headache. No neck pain. No syncope. No seizures. No dizziness. PSYCHIATRIC: Not anxious. No depression. No suicidal thoughts. No homicidal thoughts. SKIN: No rash. No lesions. No wounds. ENDOCRINE: No unexplained weight loss. No weight gain. HEMATOLOGIC/LYMPHATIC: No anemia. No purpura. No petechiae. No prolonged or excessive bleeding. No palpable lymph nodes. PHYSICAL EXAMINATION: GENERAL: The patient is awake, alert and oriented, sitting in bed in no distress. VITAL SIGNS: Temperature 98.5 F, Pulse 96, Respiratory Rate 20, BP 175/69, Pulse Ox 96% HEENT: Head normocephalic, atraumatic. Eyes: Extraocular muscles are intact. Pupils are equal, round and reactive to light and accommodation. Ears: No lesions. Nose appeared normal. Throat: No exudate or erythema. NECK: Supple. No JVD, no carotid bruit. No lymphadenopathy or thyromegaly. LUNGS: Decreased breath sounds with good air entry. Clear to auscultation. Percussion note normal. Chest symmetrical. HEART: S1, S2, no S3. No murmurs. No cyanosis or clubbing. No ascites. Pulses: Dorsalis pedis and posterior tibial pulses +1 to +2 both sides. ABDOMEN: Soft. Non-tender. Bowel sounds active. No CVA tenderness. No mass felt. EXTREMITIES: No edema. Full range of motion of all extremities, equal. NEUROLOGIC: No focal deficit. Cranial nerves II through XII are grossly intact. No headache, no double vision or headache. SKIN: Not dry. Intact. Turgor-normal. LYMPHATIC: No palpable lymph nodes/no lymphedema. MUSCULOSKELETAL: Normal joints with no swelling. Muscle tone is normal. LAB REVIEW: 05/05/17 04:30 05/05/17 04:30 05/05/17 06:55: Puncture Site R rad, O2 Saturation 87.0 L, ABG pH 7.487 H, ABG pCO2 50.4 H, ABG pO2 50.0 L*, ABG HCO3 38.2 H, ABG Total CO2 40 H, ABG Base Excess 15 H, Miki Test +, FiO2 % 21.0 05/05/17 04:30: Sodium 147 H, Potassium 3.6, Chloride 105, Carbon Dioxide 32 H, Anion Gap 13.6, BUN 19 H, Creatinine 0.90, Estimated GFR (MDRD) 62.00, BUN/ Creatinine Ratio 21.11, Glucose 83, Calcium 9.2, Total Bilirubin 0.8, AST 18, ALT 30, Alkaline Phosphatase 44 L, Total Protein 5.7 L, Albumin 3.1 L, Globulin 2.6, Albumin/Globulin Ratio 1.19 05/05/17 04:30: WBC 5.87, RBC 3.79 L, Hgb 11.3 L, Hct 33.1 L, MCV 87.3, MCH 29.8 , MCHC 34.1, RDW Coeff of Tr 14.8, Plt Count 79 L, Immature Gran % (Auto) 0.3, Neut % (Auto) 71.7, Lymph % (Auto) 18.1, [place] % (Auto) 9.5, Eos % (Auto) 0.2, Baso % (Auto) 0.2, Immature Gran # (Auto) 0.0, Neut # 4.2, Lymph # 1.1, [place] # 0.6, Eos # 0.0, Baso # 0.0 ASSESSMENT: 1. RESPIRATORY FAILURE SEEMS UNDER CONTROL 2. CHRONIC RESPIRATORY FAILURE 3. SEVERE COPD 4. SMOKING 5. PERIPHERAL ARTERIAL DISEASE 6. DEMENTIA 7. ANEMIA, CHRONIC 8. CHRONIC RESPIRATORY FAILURE 9. SEVERE COPD 10. SMOKING 11. SEVERE HYPERTENSION PLAN: 1. Increase Minoxidil to 5 mg twice a day. 2. Decrease Norvasc to 5/325 mg twice a day Plan and coordination of the patient's care discussed in the presence of Production Honing Machine Operator and nurse. EDUCATION: Counseling for smoking done. Discussion with patient regarding narcotic use. She voices understanding. CONDITION: Stable SCRIBED BY: KENISHA FRY Travel Services Professional scribed while in presence of service performed by Dr. SIDDHARTHA BRITO on 05/05/17 ([id number])
[2017-05-05] MEDS: DALIRESP PO SCH (10:54)
[2017-05-05] MEDS: COREG PO SCH ×2 (10:54→18:06)
[2017-05-05] MEDS: MINOXIDIL PO SCH ×2 (10:56→23:01)
[2017-05-05] MEDS: CATAPRES PO SCH (10:57)
[2017-05-05] MEDS: COZAAR PO SCH ×2 (10:57→23:01)
[2017-05-05] MEDS: NORVASC PO SCH ×2 (10:57→23:02)
[2017-05-05] MEDS: ASPIRIN CHEWABLE PO SCH (10:58)
[2017-05-05] MEDS: FERROUS SULFATE PO SCH ×2 (10:58→23:00)
[2017-05-05] MEDS: LEXAPRO PO SCH (10:58)
[2017-05-05] MEDS: CYMBALTA PO SCH (10:59)
[2017-05-05] MEDS: PREDNISONE PO SCH (10:59)
[2017-05-05] MEDS: NON-FORMULARY MEDICATION (Cyanocobalamin (Vitamin B-12) [B-12] 500 MCG) PO SCH (10:59)
[2017-05-05] MEDS: NICODERM 14 MG TD SCH (11:00)
[2017-05-05] MEDS: NORCO 5-325 PO SCH ×2 (11:07→23:02)
[2017-05-05] MEDS: LYRICA PO SCH ×2 (11:07→23:00)
[2017-05-05] MEDS: CRESTOR PO SCH (22:59)
[2017-05-06] MEDS: XOPENEX 1.25 MG NEB SCH ×2 (04:40→11:09)
[2017-05-06] MEDS: LASIX IVP SCH (05:29)
[2017-05-06] MEDS: PROTONIX PO SCH (05:31)
[2017-05-06] MEDS: PLETAL PO SCH (05:31)
[2017-05-06 07:16] VITALS: TEMP 98.1
--- NOTE | 2017-05-06 09:41 | PN ---
DATE OF SERVICE: 05/04/17 SUBJECTIVE: 72 year old white female hospitalized with respiratory failure. The patient's condition has improved. She had pneumonia. She is sitting up and eating. Her appetite has improved remarkably. Her oxygen level is 98% with 2 liters. REVIEW OF SYSTEMS: CONSTITUTIONAL: No night sweats. Fatigue. No fever or chills. HEENT: Eyes: No visual changes. No eye pain. No eye discharge. ENT: No runny nose. No epistaxis. No sinus pain. No sore throat. No odynophagia. No congestion. RESPIRATORY: No cough, no congestion. No hemoptysis. Shortness of breath on minimal exertion as usual. CARDIOVASCULAR: No angina symptoms. No CHF symptoms. No atypical chest pain for CAD. No palpitations. No orthopnea. No PND. GASTROINTESTINAL: No abdominal pain. No nausea or vomiting. No diarrhea or constipation. No hematemesis. No hematochezia. Appetite is improving. GENITOURINARY: No urgency. No frequency. No dysuria. No hematuria. No obstructive symptoms. No discharge. No pain. No significant abnormal bleeding. MUSCULOSKELETAL: No musculoskeletal pain; no joint swelling. NEUROLOGICAL: No headache. No neck pain. No syncope. No seizures. No dizziness. PSYCHIATRIC: Not anxious. No depression. No suicidal thoughts. No homicidal thoughts. SKIN: No rash. No lesions. No wounds. ENDOCRINE: No unexplained weight loss. No weight gain. HEMATOLOGIC/LYMPHATIC: No anemia. No purpura. No petechiae. No prolonged or excessive bleeding. No palpable lymph nodes. PHYSICAL EXAMINATION: GENERAL: The patient is oriented to time, place and person. VITAL SIGNS: Temperature 98, pulse 80, respiratory rate 15, blood pressure 160/ 80 and pulse ox 97% on 2 liters. HEENT: Head normocephalic, atraumatic. Eyes: Extraocular muscles are intact. Pupils are equal, round and reactive to light and accommodation. Ears: No lesions. Nose appeared normal. Throat: No exudate or erythema. Face is swollen because of steroids. NECK: Supple. No JVP, no carotid bruit. No lymphadenopathy or thyromegaly. LUNGS: Decreased breath sounds but good air entry. Percussion note normal. Chest symmetrical. HEART: S1, S2, no S3. No murmurs. No cyanosis or clubbing. No ascites. Pulses: Dorsalis pedis and posterior tibial pulses +1 to +2 both sides. ABDOMEN: Soft. Nontender. Bowel sounds active. No CVA tenderness. No mass felt. EXTREMITIES: No edema. Full range of motion of all extremities, equal. NEUROLOGIC: No focal deficit. Cranial nerves II through XII are grossly intact. No headache, no double vision or headache. SKIN: Not dry. Intact. Turgor - normal. LYMPHATIC: No palpable lymph nodes/no lymphedema. MUSCULOSKELETAL: Normal joints with no swelling. Muscle tone is normal. ASSESSMENT: 1. Acute respiratory failure seems to have resolved 2. Chronic respiratory failure 3. Chronic hypoxemia 4. Chronic lung disease 5. Peripheral arterial disease 6. Hypertension 7. Chronic kidney disease 8. Anemia. PLAN: 1. Counseling for smoking done 2. The patient is advised pulmonary rehab 3. Advised to cut down on Xanax 4. The patient's narcotics have already been reduced to half CONDITION: stable. TIME SPENT: More than 30 minutes. Plan and coordination of the patient's care discussed in the presence of nurse. KEVIN
--- NOTE | 2017-05-06 10:07 | PN ---
DATE OF SERVICE: 05/03/17 SUBJECTIVE: 72 year old white female hospitalized with acute respiratory failure, confusion and shortness of breath. The patient has dementia which is usually worsened with her hypoxemia. The patient's condition has steadily improved. Her facial swelling has subsided. The patient is up and about gaining strength. PHYSICAL EXAMINATION: GENERAL: The patient seems to be oriented to time, place and person today. VITAL SIGNS: Oxygen saturation 96% with 2 liters. HEENT: Head normocephalic, atraumatic. Eyes: Extraocular muscles are intact. Pupils are equal, round and reactive to light and accommodation. Ears: No lesions. Nose appeared normal. Throat: No exudate or erythema. NECK: Supple. No JVD, no carotid bruit. No lymphadenopathy or thyromegaly. LUNGS: Decreased breath sounds but good air entry. Percussion note normal. Chest symmetrical. HEART: S1, S2, no S3. No murmurs. No cyanosis or clubbing. No ascites. Pulses: Dorsalis pedis and posterior tibial pulses +1 to +2 both sides. ABDOMEN: Soft. Nontender. Bowel sounds active. No CVA tenderness. No mass felt. EXTREMITIES: No edema. Full range of motion of all extremities, equal. NEUROLOGIC: No focal deficit. Cranial nerves II through XII are grossly intact. No headache, no double vision or headache. SKIN: Not dry. Intact. Turgor - normal. LYMPHATIC: No palpable lymph nodes/no lymphedema. MUSCULOSKELETAL: Normal joints with no swelling. Muscle tone is normal. The patient was seen and examined with Nurse Practitioner. PLAN: 1. Counseling for smoking done 2. Her problems discussed one more time with her. TIME SPENT: More than 30 minutes. Plan and coordination of the patient's care discussed in the presence of nurse. KEVIN
[2017-05-06] MEDS: XANAX PO PRN (10:10)
[2017-05-06] MEDS: NORCO 5-325 PO SCH (10:10)
[2017-05-06] MEDS: LYRICA PO SCH (10:10)
[2017-05-06] MEDS: NICODERM 14 MG TD SCH (10:11)
[2017-05-06] MEDS: LEXAPRO PO SCH (10:11)
[2017-05-06] MEDS: ASPIRIN CHEWABLE PO SCH (10:11)
[2017-05-06] MEDS: COREG PO SCH (10:12)
[2017-05-06] MEDS: MINOXIDIL PO SCH (10:12)
[2017-05-06] MEDS: PREDNISONE PO SCH (10:12)
[2017-05-06] MEDS: COZAAR PO SCH (10:12)
[2017-05-06] MEDS: DALIRESP PO SCH (10:12)
[2017-05-06] MEDS: NORVASC PO SCH (10:13)
[2017-05-06] MEDS: FERROUS SULFATE PO SCH (10:13)
[2017-05-06] MEDS: CATAPRES PO SCH (10:13)
[2017-05-06] MEDS: CYMBALTA PO SCH (10:13)
[2017-05-06] MEDS: NON-FORMULARY MEDICATION (Cyanocobalamin (Vitamin B-12) [B-12] 500 MCG) PO SCH (10:14)
[2017-05-06] MEDS: ROCEPHIN 1 GM in SODIUM CHLORIDE 50 ML IV SCH (10:20)
--- NOTE | 2017-05-06 10:38 | PN ---
DATE OF SERVICE: 04/30/17 SUBJECTIVE: 72-year-old white female hospitalized yesterday with acute respiratory failure. The patient looks remarkably well. Breathing is better. No distress. PHYSICAL EXAMINATION: HEENT: Face edema is less. Head normocephalic, atraumatic. Eyes: Extraocular muscles are intact. Pupils are equal, round and reactive to light and accommodation. Ears: No lesions. Nose appeared normal. Throat: No exudate or erythema. NECK: Supple. No JVD, no carotid bruit. No lymphadenopathy or thyromegaly. LUNGS: Decreased breath sounds but clear to auscultation. Percussion note normal. Chest symmetrical. HEART: S1, S2, no S3. No murmurs. No cyanosis or clubbing. No ascites. Pulses: Dorsalis pedis and posterior tibial pulses +1 to +2 both sides. ABDOMEN: Soft. Nontender. Bowel sounds active. No CVA tenderness. No mass felt. EXTREMITIES: No edema. Full range of motion of all extremities, equal. NEUROLOGIC: No focal deficit. Cranial nerves II through XII are grossly intact. No headache, no double vision or headache. SKIN: Not dry. Intact. Turgor - normal. LYMPHATIC: No palpable lymph nodes/no lymphedema. MUSCULOSKELETAL: Normal joints with no swelling. Muscle tone is normal. PLAN: 1. PT/OT evaluation will be done. 2. The other problem is hemoglobin of 8.2, hematocrit of 24, will monitor this. The patient has continued to smoke in spite of repeated discussions. She is forgetful, demented. Hypoxemia had worsened her dementia. Condition at the present time is stable. TIME SPENT: More than 30 minutes. Plan and coordination of the patient's care discussed in the presence of nurse. KEVIN
--- NOTE | 2017-05-06 10:51 | CM.DICTOOL ---
ADMISSION: 04/29/17 14:45 DISCHARGE: 05/06/17 FINAL DIAGNOSIS RESPIRATORY FAILURE, ACUTE ON CHRONIC COPD/SMOKING HYPERTENSION ANEMIA HYPOKALEMIA ANXIETY/PANIC EPISODES PAD PULMONARY NODULE, [address] NEUROPATHY DYSLIPIDEMIA DEPRESSION OSTEOARTHRITIS DJD SPINE CAROTID OCCULSIVE DISEASE RENAL ARTERY STENOSIS HYSTERECTOMY, 1989 AORTOILIAC BYPASS AAA, 1997 [facility] (LVEF 53%-ECHO, 11/02) LAST VITALS Temp Pulse Resp BP Pulse Ox 98.1 F 98 H 18 176/72 H 96 05/06/17 06:00 05/06/17 06:00 05/06/17 06:00 05/06/17 06:00 05/06/17 06:00 ACTIVE HOME MEDICATIONS Acetaminophen/Hydrocodone Bitart ([place] 5-325) 1 tab PO Q12HR [facility] Last Admin: 05/05/17 23:02 Dose: 1 tab Alprazolam (Xanax) 0.25 mg PO BID PRN PRN Reason: Anxiety Last Admin: 05/05/17 23:05 Dose: 0.25 mg Amlodipine Besylate (Norvasc) 5 mg PO BID [facility] Last Admin: 05/05/17 23:02 Dose: 5 mg Aspirin (Aspirin Chewable) 81 mg PO DAILYWM [facility] Last Admin: 05/05/17 10:58 Dose: 81 mg Carvedilol (Coreg) 25 mg PO BIDWM [facility] Last Admin: 05/05/17 18:06 Dose: 25 mg Cilostazol (Pletal) 100 mg PO BIDAC [facility] Last Admin: 05/06/17 05:31 Dose: 100 mg Clonidine (Catapres) 0.1 mg PO BID [facility] Last Admin: 05/05/17 10:57 Dose: 0.1 mg Duloxetine HCl (Cymbalta) 60 mg PO DAILY [facility] Last Admin: 05/05/17 10:59 Dose: 60 mg Escitalopram Oxalate (Lexapro) 20 mg PO DAILY [facility] Last Admin: 05/05/17 10:58 Dose: 20 mg Ferrous Sulfate (Ferrous Sulfate) 324 mg PO BID [facility] Last Admin: 05/05/17 23:00 Dose: 324 mg Losartan Potassium (Cozaar) 50 mg PO BID [facility] Last Admin: 05/05/17 23:01 Dose: 50 mg Minoxidil (Minoxidil) 5 mg PO BID [facility] Last Admin: 05/05/17 23:01 Dose: 5 mg Nicotine (Nicoderm 14 Mg) 1 patch TD DAILY [facility] Last Admin: 05/05/17 11:00 Dose: 1 patch Non-Formulary Medication (Cyanocobalamin (Vitamin B-12) [B-12]) 500 mcg PO DAILY [facility] Last Admin: 05/05/17 10:59 Dose: Not Given Non-Formulary Medication (Tiotropium Br/Olodaterol Hcl [Stiolto Respimat Inhal [place]]) 2.5 mcg IH DAILY [facility] Last Admin: 05/05/17 11:00 Dose: Not Given Pregabalin (Lyrica) 50 mg PO BID [facility] Last Admin: 05/05/17 23:00 Dose: 50 mg Roflumilast (Daliresp) 500 mcg PO DAILY [facility] Last Admin: 05/05/17 10:54 Dose: 500 mcg Rosuvastatin Calcium (Crestor) 20 mg PO BEDTIME [facility] Last Admin: 05/05/17 22:59 Dose: 20 mg NORCO 10-325MG TAKE 1/2 TABLET 2 TIMES A DAY LAST ADMIN: 05/06/17 0900 ALLERGIES No Known Allergies Allergy (Verified 03/31/17 17:29) NEW PRESCRIPTIONS: NEW MEDICATIONS: 1. KEFLEX 500MG TAKE 1 CAPSULE 2 TIMES A DAY FOR 5 DAYS. TAKE UNTIL ALL GONE. 2. PREDNISONE 10MG TAKE 1 TABLET DAILY FOR 10 DAYS THEN 1/2 TABLET DAILY FOR 5 DAYS. TAKE WITH FOOD. SMOKING: NO SMOKING. AVOID SECOND HAND SMOKING. DISEASE SPECIFIC EDUCATION: RESPIRATORY FAILURE BRONCHITIS MEDICATION STEROID THERAPY NORCO/XANAX THERAPY SMOKING LAB REVIEW: 05/06/17 08:00 05/06/17 08:00 05/06/17 08:00: Sodium 143, Potassium 3.0 L, Chloride 99, Carbon Dioxide 31, Anion Gap 16.0, BUN 16, Creatinine 0.80, Estimated GFR (MDRD) 71.00, BUN/ Creatinine Ratio 20.00, Glucose 90, Calcium 9.3, Total Bilirubin 0.9, AST 15, ALT 24, Alkaline Phosphatase 49 L, Total Protein 5.5 L, Albumin 3.7, Globulin 1.8, Albumin/Globulin Ratio 2.06 05/06/17 08:00: WBC 5.74, RBC 3.82 L, Hgb 11.3 L, Hct 33.5 L, MCV 87.7, MCH 29.6 , MCHC 33.7, RDW Coeff of Tr 14.7, Plt Count 77 L, Immature Gran % (Auto) 0.3, Neut % (Auto) 65.8, Lymph % (Auto) 23.9, [place] % (Auto) 9.8, Eos % (Auto) 0.2, Baso % (Auto) 0.0, Immature Gran # (Auto) 0.0, Neut # 3.8, Lymph # 1.4, [place] # 0.6, Eos # 0.0, Baso # 0.0 PLAN: DISCHARGE HOME TODAY. CONTINUE HOME MEDICATIONS WITH THE FOLLOWING CHANGES: 1. NORCO 10-325 TAKE 1/2 TABLET 2 TIMES A DAY. 2. DECREASE THE XANAX 0.25MG FROM 3 TIMES A DAY NEEDED TO 2 TIMES A DAY NEEDED (EVERY 12 HOURS NEEDED). NEW MEDICATIONS: 1. KEFLEX 500 MG TAKE 1 CAPSULE 2 TIMES A DAY FOR 5 DAYS. TAKE UNTIL ALL GONE. 2. PREDNISONE 10MG TAKE 1 TABLET DAILY FOR 10 DAYS THEN TAKE 1/2 TABLET DAILY FOR 5 DAYS. TAKE WITH FOOD. DIET TOLERATED. ENSURE 2-3 TIMES A DAY. ACTIVITY TOLERATED. AVOID EXTREME COLD WEATHER AND CROWDS. AVOID SMOKING AND SECOND HAND SMOKE. FOLLOW UP WITH DR. BRITO ON WednesdayApril AT 1130. PLEASE CALL IF UNABLE TO KEEP APPOINTMENT. [phone]. SITTING UP IN BED. ALERT AND ORIENTED X 4. IS CONFUSED AT TIMES. DR. BRITO INTO SEE PATIENT. DISCUSSED PLAN OF CARE INCLUDING DISCHARGE TODAY AND DECREASE IN NORCO AND XANAX DOSES. DR. BRITO EXPLAINED PURPOSE OF DECREASING THESE MED DOSES WAS TO SEE IF IT WOULD IMPROVE RESPIRATORY STATUS AND DECREASE PERIODS OF CONFUSION. PATIENT VERBALIZES UNDERSTANDING AND AGREEMENT. APPETITE IS FAIR. VITAL SIGNS ARE STABLE. HAS BEEN AFEBRILE. POX 96% ON 2L/C. HEART TONES ARE REGULAR WITH TELEMETRY REVEALING SINUS RHYTHM. LUNGS WITH WHEEZES AND DIMINISHED BREATH SOUNDS. HAS NON-PRODUCTIVE COUGH. HAS DYSPNEA WITH ACTIVITY. HAS BARREL CHEST FROM CHRONIC RESPIRATORY DISEASE. ABDOMEN IS SOFT, NON-TENDER WITH BOWEL SOUNDS POSITIVE IN ALL 4 QUADS. LAST BM 05/05/17. PEDAL PULSES POSITIVE WITHOUT EDEMA. HAS REID CATH TO BSD DRAINING YELLOW URINE. NURSE INFORMED TO REMOVE PAYAM SO PATIENT CAN VOID PRIOR TO DISCHARGE. HAS SALINE LOCK IN LEFT FOREARM SITE IS CLEAR. HAS BRUISE TO RIGHT EYE, LEFT UPPER ABDOMEN AND LEFT BREAST. FACIAL SWELLING NOTED FROM STEROID USE. IS A FALL RISK WITH FALL PRECAUTIONS IN USE. IS A 1 PERSON ASSIST. NO ACUTE DISTRESS NOTED. DR. SIDDHARTHA BRITO Bertha TRAN APRN
[2017-05-06 10:58] VITALS: BP 133/57
[2017-05-06] MEDS ORDERED: K-DUR PO STA (11:26)
[2017-05-06] MEDS ORDERED: K-DUR ONE (11:41)
--- NOTE | 2017-05-10 13:29 | PN ---
DATE OF SERVICE: 05/06/17 SUBJECTIVE: 52 year old white female hospitalized with acute respiratory failure. The patient's confusion has subsided. She is now tolerating [place] 5-[address] Case's office has been called and the nurses have been informed that she has been taken down to 5-325mg twice a day. The patient was strongly advised not to mix Narcotics with any other medications. She is agreeable but she says that is the big deal about having [place] 10-325mg three times a day for pain and I explained to her that she is doing fine with less medicine. That medicine can effect her breathing and mental status. The has already been explained about it, it comes everyday. REVIEW OF SYSTEMS: CONSTITUTIONAL: No night sweats. No fatigue, malaise, lethargy. No fever or chills. HEENT: Eyes: No visual changes. No eye pain. No eye discharge. ENT: No runny nose. No epistaxis. No sinus pain. No sore throat. No odynophagia. No congestion. RESPIRATORY: No cough, no congestion. No hemoptysis. No shortness of breath. CARDIOVASCULAR: No angina symptoms. No CHF symptoms. No atypical chest pain for CAD. No palpitations. No orthopnea. GASTROINTESTINAL: No abdominal pain. No nausea or vomiting. No diarrhea or constipation. No hematemesis. No hematochezia. Appetite has improved. GENITOURINARY: No urgency. No frequency. No dysuria. No hematuria. No obstructive symptoms. No discharge. No pain. No significant abnormal bleeding. MUSCULOSKELETAL: No musculoskeletal pain; no joint swelling. NEUROLOGICAL: No headache. No neck pain. No syncope. No seizures. No dizziness. PSYCHIATRIC: Not anxious. No depression. No suicidal thoughts. No homicidal thoughts. SKIN: No rash. No lesions. No wounds. ENDOCRINE: No unexplained weight loss. No weight gain. HEMATOLOGIC/LYMPHATIC: No anemia. No purpura. No petechiae. No prolonged or excessive bleeding. No palpable lymph nodes. PHYSICAL EXAMINATION: GENERAL: The patient is oriented to time, place and person. VITAL SIGNS: Temperature 98, pulse 80, respiratory rate 15, blood pressure 170 /70 and pulse ox 98%. HEENT: Head normocephalic, atraumatic. Eyes: Extraocular muscles are intact. Pupils are equal, round and reactive to light and accommodation. Ears: No lesions. Nose appeared normal. Throat: No exudate or erythema. NECK: Supple. No JVD, no carotid bruit. No lymphadenopathy or thyromegaly. LUNGS: Decreased breath sounds but clear to auscultation. Percussion note normal. Chest symmetrical. HEART: S1, S2, no S3. No murmurs. No cyanosis or clubbing. No ascites. Pulses: Dorsalis pedis and posterior tibial pulses +1 to +2 both sides. ABDOMEN: Soft. Nontender. Bowel sounds active. No CVA tenderness. No mass felt. EXTREMITIES: No edema. Full range of motion of all extremities, equal. NEUROLOGIC: No focal deficit. Cranial nerves II through XII are grossly intact. No headache, no double vision or headache. SKIN: Not dry. Intact. Turgor - normal. LYMPHATIC: No palpable lymph nodes/no lymphedema. MUSCULOSKELETAL: Normal joints with no swelling. Muscle tone is normal. ASSESSMENT: 1. Acute respiratory failure resolved 2. Chronic lung disease 3. Smoking 4. Severe peripheral arterial disease 5. Dementia, vascular PLAN: 1. Give Keflex for 5 days 2. Prednisone for 10 days 10mg half a tablet then half a tablet every day for 5 days for total of 15 days 3. Side effects of Prednisone discussed with the patient like cataracts, osteoporosis and vascular necrosis of femoral bones 4. The patient advised bone density which she declined. CONDITION: Stable PROGNOSIS: Guarded. TIME SPENT: More than 30 minutes. Plan and coordination of the patient's care discussed in the presence of nurse. KEVIN
--- NOTE | 2017-05-10 13:54 | DS ---
DATE OF SERVICE: 05/06/17 FINAL DIAGNOSIS: 1. Respiratory failure, acute on chronic 2. COPD/Smoking 3. Hypertension 4. Anemia 5. Hypokalemia 6. Anxiety/panic episodes 7. PAD 8. Pulmonary nodule, 4mm per CT 9. Neuropathy 10.Dyslipidemia 11.Osteoarthritis 12.DJD spine 13.Carotid Occlusive disease 14.Renal artery Stenosis 15.Hysterectomy 16.Aortoiliac bypass 17.AAA, 1997 18.LVH (LVEF 52%-echo, 11/02) LAST VITALS: Temperature 98.1, pulse 98, respiratory 18, blood pressure 176/72 and pulse ox 96%. DISCHARGE INSTRUCTIONS: Discharge home. Avoid smoking and second hand smoke. Followup with Dr. Dawson on WednesdayMay 12 at 11:30. [place] 10-325 take half tablet two times a day. Decrease the Xanax 0.25mg from 3 times a day as needed to two times a day as needed(every 12 hours as needed ). MEDICATIONS AT DISCHARGE: [place] 5-325 PO Q 12 hours Xanax 0.25mg Po twice a day PRN Norvasc 5mg PO twice a day Aspirin 81mg PO daily Coreg 25mg PO twice a day Pletal 100mg PO twice a day Catapres 0.1mg PO twice a day Cymbalta 60mg Po daily Lexapro 20mg PO daily Ferrous Sulfate 324mg PO twice a day Cozaar 50mg Po twice a day Minoxidil 5mg Po twice a day Nicoderm 1 patch TD daily Vitamin B12 500mcg PO daily Stiolto Respimat 2.5mcg IH daily Lyrica 50mg PO twice a day Daliresp 500mcg PO daily Crestor 20mg PO bedtime [place] 10-325mg take chucyk tablet two times a day ALLERGIES: No known allergies NEW PRESCRIPTIONS: Keflex 500mg take one capsule two times a day for 5 dyas, take until all gone. Prednisone 10ng take one tablet for 10 days then half tablet daily for 5 days. Take with food. DIET INSTRUCTIONS: As tolerated. Ensure 2-3 times a day ACTIVITY: As tolerated. Avoid extreme cold weather and crowds. SMOKING: No smoking. Avoid second hand smoking DISEASE SPECIFIC EDUCATION: Respiratory failure Bronchitis Medication Steroid Therapy [place]/Xanax therapy Smoking HOSPITAL COURSE: 72 year old white female hospitalized with acute respiratory failure. The patient was treated with aggressive steroids, antibiotics and NEBS treatment. The patient's blood gasses improved. She was cut down on her narcotic. Her mental status had already improved with improvement of the oxygenation. Hypoxemia makes her condition worse so she was explained about that. Also strongly advised to quit smoking. The patient's counseling done about the smoking. She was explained about about peripheral arterial disease, ASHD. She declined any further work up involving any cardiac like stress echo etc. The patient was discharged in stable condition. Her oxygen saturation on room air was 88% but with 2 liters it is up to 97%. She asked not to take anymore. CONDITION: Stable TIME SPENT: More than 60 minutes. SNOWD
--- NOTE | 2017-05-10 13:56 | PN ---
04/29/17: Level 5 04/30/17: Intermediate 05/01/17: Intermediate 05/02/17: Intermediate 05/03/17: Intermediate 05/04/17: Intermediate 05/05/17: Intermediate 05/06/17: D as in discharge MTDD
== END 2017-05-06 13:20 | disposition home or self-care (01) | DRG 189 ==
LOC: MEDSURG B 14:45 → SCU 15:05
PROVIDERS: ADMIT Internal Medicine; ATTEND Internal Medicine
PROC: 30233N1 Transfusion of Nonautologous Red Blood Cells into Peripheral Vein, Percutaneous Approach (ICD-10-PCS; principal; 2017-05-01)
PROC: 30233N1 Transfusion of Nonautologous Red Blood Cells into Peripheral Vein, Percutaneous Approach (ICD-10-PCS; 2017-05-01)
DX: J96.21 Acute and chronic respiratory failure with hypoxia (principal); E87.2 Acidosis; D64.9 Anemia, unspecified; J44.9 Chronic obstructive pulmonary disease, unspecified; F01.50 Vascular dementia, unspecified severity, without behavioral disturbance, psychotic disturbance, mood disturbance, and anxiety; I10 Essential (primary) hypertension; E87.6 Hypokalemia; F41.0 Panic disorder [episodic paroxysmal anxiety]; I73.9 Peripheral vascular disease, unspecified; R91.1 Solitary pulmonary nodule; R22.0 Localized swelling, mass and lump, head; N18.9 Chronic kidney disease, unspecified; I65.29 Occlusion and stenosis of unspecified carotid artery; I70.1 Atherosclerosis of renal artery; I71.4 Abdominal aortic aneurysm, without rupture; I51.7 Cardiomegaly; E78.5 Hyperlipidemia, unspecified; G62.9 Polyneuropathy, unspecified; M47.9 Spondylosis, unspecified; M19.90 Unspecified osteoarthritis, unspecified site; F17.210 Nicotine dependence, cigarettes, uncomplicated; Z95.1 Presence of aortocoronary bypass graft; Z79.899 Other long term (current) drug therapy
CPT/HCPCS: 36415; 36430; 80053; 81001; 82550; 82803; 84484; 85025; 86850; 86900; 86922; 87081; 93005; 93010; 94640

== ENCOUNTER 2017-05-20 07:05 | Outpatient (RCR) ==
[2017-05-20 13:27] VITALS: BP 148/58
== END 2017-06-16 ==
LOC: PUL.REHAB 07:05
PROVIDERS: ATTEND Internal Medicine
DX: J44.9 Chronic obstructive pulmonary disease, unspecified (principal)

== ENCOUNTER 2017-05-24 16:19 | Emergency (ER) ==
[2017-05-24 16:28] VITALS: BP 118/55; TEMP 98.3; BMI 18.6
[2017-05-24] MEDS ORDERED: DUONEB NEB STA (16:36)
[2017-05-24] MEDS ORDERED: SOLU-MEDROL 125 MG IVP STA (16:37)
[2017-05-24] MEDS ORDERED: ROCEPHIN 1 GM in SODIUM CHLORIDE 50 ML IV STA (16:38)
--- NOTE | 2017-05-24 17:53 | ED.PDOC ---
General ED Provider: Dr. CHEN SHAIKH Chief Complaint: Respiratory Complaint Stated Complaint: cough Time Seen by Physician: 16:30 ( on home 02 seen with staff at all times and PA STUDENT) Mode of Arrival: Walk-In Information Source: Patient Exam Limitations: No limitations Primary Care Provider: SIDDHARTHA BRITO Nursing and Triage Documentation Reviewed and Agree: Yes Reviewed sepsis parameters & appropriate labs ordered?: Yes System Inflammatory Response Syndrome: Not Applicable Sepsis Protocol: For patient's 13 years and over: Temp is 96.8 and below OR 101 and greater Pulse >90 BPM Resp >20/minute Acutely Altered Mental Status Are patient's symptoms suggestive of a new infection, such as: -Pneumonia -Skin, Soft Tissue -Endocarditis -UTI -Bone, Joint Infection -Implantable Device -Acute Abdominal Infection -Wound Infection -Meningitis -Blood Stream Catheter Infection -Unknown System Inflammatory Response Syndrome: Not Applicable Respiratory Complaint Exam - Respiratory Complaint/Exam Onset/Duration: CHRONIC ISSUE STILL SMOKES Symptoms Are: Resolved Timing: Intermittent Initial Severity: Mild Current Severity: None Location: Nose, Throat, Chest Character: Reports: Non-productive cough Aggravating: Reports: None Alleviating: Reports: Bronchodilators Associated Signs and Symptoms: Reports: URI, Nasal congestion. Denies: Rapid breathing, Dyspnea, Fever, Chills, Chest pain, Pleuritic chest pain, Wheezing, Hemoptysis, Dizziness, Calf pain, Calf swelling, Edema, Hoarseness, Sinus discomfort, Vomiting, Sore throat, Weight loss, Decreased oral intake, Increased thirst, Increased appetite, Increased urination Related History: Reports: Similar episode History of Healthcare-Acquired Pneumonia: No Related Surgical History: Reports: None Pulmonary Embolism Risk Factors: Bedrest Review of Systems - Review Of Systems Constitutional: Reports: No symptoms Eyes: Reports: No symptoms Ears, Nose, Mouth, Throat: Reports: No symptoms Respiratory: Reports: Cough, Wheezing Cardiac: Reports: No symptoms GI: Reports: No symptoms : Reports: No symptoms Musculoskeletal: Reports: No symptoms Skin: Reports: No symptoms Neurological: Reports: No symptoms Endocrine: Reports: No symptoms Hematologic/Lymphatic: Reports: No symptoms All Other Systems: Reviewed and Negative Past Medical History - Past Medical History Previously Healthy: Yes Endocrine: Reports: Dyslipidemia Cardiovascular: Reports: CAD, Hypertension, Other (PAD) Respiratory: Reports: COPD Hematological: Reports: None Gastrointestinal: Reports: None Genitourinary: Reports: None Neuro/Psych: Reports: Anxiety, Depression Musculoskeletal: Reports: Arthritis, Back Pain, Joint Pain Cancer: Reports: None Last Menstrual Period: unknown - Surgical History General Surgical History: Reports: Hysterectomy, Stent Placement - Family History Family History: Reports: Unknown - Social History Smoking Status: Current some day smoker, Light tobacco smoker Hx Substance Use: No Alcohol Screening: Occasionally Physical Exam - Physical Exam Appearance: Well-appearing, No pain distress, Well-nourished Eyes: ARIEL, EOMI, Conjunctiva clear ENT: Ears normal, Nose normal, Oropharynx normal Respiratory: Rhonchi, Wheezes Cardiovascular: RRR, Pulses normal, No rub, No murmur GI/: Soft, Nontender, No masses, Bowel sounds normal, No Organomegaly Musculoskeletal: Normal strength, ROM intact, No edema, No calf tenderness Skin: Warm, Dry, Normal color Neurological: Sensation intact, Motor intact, Reflexes intact, Cranial nerves intact, Alert, Oriented Psychiatric: Affect appropriate, Mood appropriate Interpretation - Radiology Interpretation Radiology Interpretation By: Radiologist Critical Care Note - Critical Care Note Total Time (mins): 0 Course - Course Hematology/Chemistry: 05/24/17 16:35 05/24/17 16:35 Orders, Labs, Meds: Lab Review 05/24/17 05/24/17 05/24/17 16:35 16:35 16:39 WBC 8.31 RBC 3.40 L Hgb 10.3 L Hct 30.3 L MCV 89.1 MCH 30.3 MCHC 34.0 RDW Coeff of Tr 14.8 Plt Count 92 L Immature Gran % (Auto) 0.4 Neut % (Auto) 72.2 Lymph % (Auto) 18.5 [place] % (Auto) 7.9 Eos % (Auto) 0.8 Baso % (Auto) 0.2 Immature Gran # (Auto) 0.0 Neut # 6.0 Lymph # 1.5 [place] # 0.7 Eos # 0.1 Baso # 0.0 Puncture Site Rr O2 Saturation 95.0 ABG pH 7.478 H ABG pCO2 42.8 ABG pO2 72.0 L ABG HCO3 31.7 H ABG Total CO2 33 H ABG Base Excess 8 H Miki Test + O2 Delivery Device Nc Oxygen Liter Flow 2.00 FiO2 % 28.0 Sodium 144 Potassium 3.4 L Chloride 104 Carbon Dioxide 34 H Anion Gap 9.4 BUN 10 Creatinine 0.81 Estimated GFR (MDRD) 70.00 BUN/Creatinine Ratio 12.34 Glucose 183 H Calcium 9.0 Total Bilirubin 0.5 AST 13 L ALT 16 Alkaline Phosphatase 48 L Total Creatine Kinase 26 Troponin I 0.0230 Total Protein 5.4 L Albumin 3.3 L Globulin 2.1 Albumin/Globulin Ratio 1.57 Influenza A (Rapid) Influenza B (Rapid) 05/24/17 16:40 WBC RBC Hgb Hct MCV MCH MCHC RDW Coeff of Tr Plt Count Immature Gran % (Auto) Neut % (Auto) Lymph % (Auto) [place] % (Auto) Eos % (Auto) Baso % (Auto) Immature Gran # (Auto) Neut # Lymph # [place] # Eos # Baso # Puncture Site O2 Saturation ABG pH ABG pCO2 ABG pO2 ABG HCO3 ABG Total CO2 ABG Base Excess Miki Test O2 Delivery Device Oxygen Liter Flow FiO2 % Sodium Potassium Chloride Carbon Dioxide Anion Gap BUN Creatinine Estimated GFR (MDRD) BUN/Creatinine Ratio Glucose Calcium Total Bilirubin AST ALT Alkaline Phosphatase Total Creatine Kinase Troponin I Total Protein Albumin Globulin Albumin/Globulin Ratio Influenza A (Rapid) Negative by naat Influenza B (Rapid) Negative by naat Orders Category Date Time Status ABG DRAW REQUEST Stat CARDIO 05/24/17 16:39 Completed EKG-(ED ONLY) Stat CARDIO 05/24/17 16:36 Completed NEBULIZER TREATMENT Stat CARDIO 05/24/17 16:36 Completed ABG Stat LAB 05/24/17 16:39 Completed CBC W/ AUTO DIFF Stat LAB 05/24/17 16:35 Completed COMPREHENSIVE METABOLIC PANEL Stat LAB 05/24/17 16:35 Completed CREATINE KINASE Stat LAB 05/24/17 16:35 Completed FLU A/B MOLECULAR Stat LAB 05/24/17 16:40 Completed MOLECULAR GROUP A STREP Stat LAB 05/24/17 16:40 Completed TROPONIN I Stat LAB 05/24/17 16:35 Completed Ceftriaxone Sodium [Rocephin] 1 gm MEDS 05/24/17 16:38 Discontinued 0.9 % Sodium Chloride [Sodium Chloride] 50 ml IV ONCE Ipratropium/Albuterol Neb [Duoneb] MEDS 05/24/17 16:36 Discontinued 1 vial NEB ONCE STA Methylprednisolone Sod Succ/Pf [Solu-Medrol 125 mg] MEDS 05/24/17 16:37 Discontinued 125 [address] IVP ONCE STA CT CHEST W/O CONTRAST Stat RADS 05/24/17 16:38 Taken Medications Discontinued Medications Generic Name Dose Route Start Last Admin Trade Name Jakeq PRN Reason Stop Dose Admin Albuterol/Ipratropium 1 vial 05/24/17 16:36 05/24/17 17:06 Duoneb NEB 05/24/17 16:37 1 vial ONCE STA Administration Ceftriaxone Sodium 1 gm/ 50 mls @ 75 mls/hr 05/24/17 16:38 Sodium Chloride IV 05/24/17 17:17 ONCE STA Methylprednisolone Sodium Succinate 125 mg 05/24/17 16:37 Solu-Medrol 125 Mg IVP 05/24/17 16:38 ONCE STA Vital Signs: Temp Pulse Resp BP Pulse Ox 05/24/17 16:21 98.3 F 92 H 22 118/55 L 89 L Departure - Departure Time of Disposition: 17:53 Disposition: HOME SELF-CARE Discharge Problem: COPD (chronic obstructive pulmonary disease) Instructions: COPD (Chronic Obstructive Pulmonary Disease) (ED) Condition: Good Pt referred to PMD for follow-up: Yes IPMP verified?: No Allergies/Adverse Reactions: Allergies No Known Allergies Allergy (Verified 05/24/17 16:29) Home Medications: Ambulatory Orders Cilostazol [Pletal] 100 mg PO BIDAC 12/09/12 Cyanocobalamin (Vitamin B-12) [B-12] 500 mcg PO DAILY 12/09/12 Roflumilast [Daliresp] 500 mcg PO DAILY 03/29/15 Ferrous Gluconate 324 mg PO BID 06/17/15 Duloxetine HCl [Cymbalta] 60 mg PO DAILY 06/18/15 Rosuvastatin Calcium [Crestor] 20 mg PO BEDTIME 12/27/15 Aspirin 81 mg PO DAILY 05/27/16 Carvedilol [Coreg] 25 mg PO BIDWM 05/27/16 Pregabalin [Lyrica] 50 mg PO BID #60 capsule 06/01/16 Tiotropium Br/Olodaterol HCl [Stiolto Respimat Inhal [place]] 2.5 mcg IH DAILY 07/03 Hydrocodone Bit/Acetaminophen [Lortab 10-500] 1 tab PO BID 03/20/17 Alprazolam [Xanax] 0.25 mg PO TID PRN #90 tablet 04/08/17 Clonidine HCl 0.1 mg PO BID #60 tablet 04/08/17 Escitalopram Oxalate [Lexapro] 20 mg PO DAILY #30 tablet 04/08/17 Minoxidil 5 mg PO BID #60 tablet 04/08/17 Potassium Chloride [Micro-K Cap] 10 meq PO DAILY #30 capsule.er 04/08/17 Losartan Potassium [Cozaar] 50 mg PO BID 04/20/17 Amlodipine Besylate [Norvasc] 5 mg PO BID #60 tablet 04/23/17 Nicotine [Nicotine Patch] 1 each TD DIRECTED #70 patch.td24 04/23/17 Cephalexin [Keflex] 500 mg PO Q12HR #10 capsule 05/06/17
--- NOTE | 2017-05-24 18:00 | CT ---
Exam: CT scan of the thorax without contrast. Date: 05/24/2017. Comparison: 04/14/2017. HISTORY: Shortness of breath. TECHNIQUE: Helical scan of the thorax was performed without contrast. FINDINGS: The thoracic inlet and axillary regions are normal. Granulomatous calcifications are pres ent in the mediastinum. Caliber of the thoracic aorta and cardiac chambers are normal. There is a s mall to moderate pericardial effusion. Granulomatous calcifications are present in the spleen. The spleen and upper liver have a uniform attenuation. There is mild anterior kyphotic angulation of the thoracic spine with minor multilevel endplate degen erative changes. No lytic or blastic lesions or acute displaced rib fractures are seen. Evaluation at lung window settings demonstrates centrolobular emphysematous changes.. Granulomatous calcifications are present. No suspicious pulmonary nodules, pleural fluid or consolidation is prese nt. Tracheobronchial tree is patent. Impression: No acute intrathoracic findings. Emphysematous changes with old granulomatous disease. ASVD.
== END 2017-05-24 18:19 | disposition home or self-care (01) ==
LOC: ED 16:19
DX: J44.9 Chronic obstructive pulmonary disease, unspecified (principal); R05 Cough; E78.5 Hyperlipidemia, unspecified; I10 Essential (primary) hypertension; I25.10 Atherosclerotic heart disease of native coronary artery without angina pectoris; Z99.81 Dependence on supplemental oxygen; F17.210 Nicotine dependence, cigarettes, uncomplicated; Z79.899 Other long term (current) drug therapy
CPT/HCPCS: 36415; 80053; 82550; 82803; 84484; 85025; 87502; 87651; 93005; 93010; 94640; 99283

== ENCOUNTER 2017-05-26 14:49 | Inpatient (IN) ==
[2017-05-26] MEDS ORDERED: MORPHINE 4 MG/ML VIAL IVP PRN (15:31)
[2017-05-26] MEDS ORDERED: TYLENOL PO PRN (15:31)
[2017-05-26] MEDS ORDERED: DECADRON 4 MG/ML SDV IM STA (15:31)
[2017-05-26] MEDS ORDERED: NITROSTAT SL PRN (15:31)
[2017-05-26] MEDS ORDERED: VISTARIL INJ IM PRN (15:31)
[2017-05-26] MEDS ORDERED: ATROPINE SULFATE PFS IVP PRN (15:31)
[2017-05-26] MEDS ORDERED: ARFORMOTEROL TARTRATE 15 MCG INH PRN (16:00)
[2017-05-26] MEDS ORDERED: PROAIR HFA IH PRN (16:00)
[2017-05-26 16:14] VITALS: BMI 17.8
--- NOTE | 2017-05-26 16:36 | DI ---
EXAM: Chest one view, frontal view only. HISTORY: Shortness of breath. COMPARISON: 05/24/2017. FINDINGS: The heart size is normal. Atherosclerotic calcifications are present. Calcified granulom atous changes noted. No consolidation, pleural effusion or pneumothorax identified. No acute osseou s abnormality detected. IMPRESSION: No acute process.
[2017-05-26] MEDS ORDERED: CARAFATE PO SCH (17:00)
[2017-05-26] MEDS ORDERED: NON-FORMULARY MEDICATION (Carvedilol [Coreg] 25 MG) PO SCH (17:30)
[2017-05-26] MEDS: TORADOL IVP SCH ×2 (17:42→21:42)
[2017-05-26] MEDS: DEXTROSE 5%-1/2NS IV SOLUTION 1,000 ML IV SCH (17:48)
[2017-05-26] MEDS: XOPENEX 1.25 MG NEB SCH (17:48)
[2017-05-26] MEDS: PULMICORT 0.5 MG/2 ML NEB SCH (17:48)
[2017-05-26] MEDS: COREG PO SCH (19:14)
[2017-05-26] MEDS: CARAFATE PO SCH ×2 (19:14→20:47)
[2017-05-26] MEDS: PLETAL PO SCH (19:15)
[2017-05-26] MEDS ORDERED: ZOFRAN 4 MG/2 ML IVP PRN (20:29)
[2017-05-26] MEDS: CATAPRES PO SCH (20:48)
[2017-05-26] MEDS: LYRICA PO SCH (20:48)
[2017-05-26] MEDS: MINOXIDIL PO SCH (20:49)
[2017-05-26] MEDS: BECLOMETHASONE DIPROPIONATE INH SCH (20:49)
[2017-05-26] MEDS: BUDESONIDE 180 MCG INH SCH (20:50)
[2017-05-27] MEDS: PULMICORT 0.5 MG/2 ML NEB SCH ×2 (05:20→16:45)
[2017-05-27] MEDS: XOPENEX 1.25 MG NEB SCH ×5 (05:20→23:08)
[2017-05-27] MEDS: DEXTROSE 5%-1/2NS IV SOLUTION 1,000 ML IV SCH ×2 (05:59→18:27)
[2017-05-27] MEDS: PLETAL PO SCH ×2 (05:59→16:42)
[2017-05-27] MEDS: PROTONIX PO SCH (05:59)
[2017-05-27] MEDS: TORADOL IVP SCH ×3 (05:59→20:29)
[2017-05-27] MEDS: CARAFATE PO SCH ×4 (06:15→20:29)
[2017-05-27] MEDS ORDERED: MICRO-K CAP PO SCH (08:00)
[2017-05-27] MEDS ORDERED: NON-FORMULARY MEDICATION (Duloxetine Hcl [Cymbalta] 60 MG) PO SCH (09:00)
[2017-05-27] MEDS ORDERED: NON-FORMULARY MEDICATION (Escitalopram Oxalate [Lexapro] 20 MG) PO SCH (09:00)
[2017-05-27] MEDS ORDERED: NON-FORMULARY MEDICATION (Losartan Potassium 50 MG) PO SCH (09:00)
[2017-05-27] MEDS: ASPIRIN EC PO SCH (10:01)
[2017-05-27] MEDS: BECLOMETHASONE DIPROPIONATE INH SCH ×2 (10:01→20:33)
[2017-05-27] MEDS: COREG PO SCH ×2 (10:02→16:41)
[2017-05-27] MEDS: CATAPRES PO SCH ×2 (10:02→20:29)
[2017-05-27] MEDS: BUDESONIDE 180 MCG INH SCH ×2 (10:02→20:33)
[2017-05-27] MEDS: NON-FORMULARY MEDICATION (Cyanocobalamin (Vitamin B-12) [B-12] 500 MCG) PO SCH (10:03)
[2017-05-27] MEDS: COZAAR PO SCH (10:03)
[2017-05-27] MEDS: CYMBALTA PO SCH (10:04)
[2017-05-27] MEDS: DALIRESP PO SCH (10:04)
[2017-05-27] MEDS: DYAZIDE PO SCH (10:04)
[2017-05-27] MEDS: LEXAPRO PO SCH (10:05)
[2017-05-27] MEDS: MINOXIDIL PO SCH ×2 (10:06→20:29)
[2017-05-27] MEDS: VITAMIN D PO SCH (10:07)
[2017-05-27] MEDS: LYRICA PO SCH ×2 (10:10→20:29)
[2017-05-27] MEDS: SPIRIVA IH SCH (10:10)
[2017-05-27] MEDS: XANAX PO PRN (10:17)
[2017-05-27] MEDS: K-DUR PO SCH ×2 (11:49→16:42)
[2017-05-28] MEDS: XOPENEX 1.25 MG NEB SCH ×2 (04:48→11:11)
[2017-05-28] MEDS: PULMICORT 0.5 MG/2 ML NEB SCH (04:48)
[2017-05-28] MEDS: PLETAL PO SCH (05:49)
[2017-05-28] MEDS: PROTONIX PO SCH (05:49)
[2017-05-28] MEDS: CARAFATE PO SCH ×2 (05:49→12:27)
[2017-05-28] MEDS: TORADOL IVP SCH ×2 (05:49→12:27)
[2017-05-28] MEDS: DEXTROSE 5%-1/2NS IV SOLUTION 1,000 ML IV SCH (06:25)
--- NOTE | 2017-05-28 08:30 | RS.PTINEVL ---
Subjective - Patient information Date of Evaluation: 05/27/17 Date of Arrival on Unit: 05/26/17 Admitted From:: Home Diagnosis: dehydration, R side chest tightness, weight loss Usual Living Arrangement: With Spouse Home Environment: Stairs (few), No rail Medical History: Hypertension, COPD, Dementia Medical History Comments:: anemia, anxiety, PAD Surgical History: Hysterectomy Surgical History Comments:: AAA Medications: see chart Subjective Information/ Patient Comments:: pt states she has been having increased trouble standing from low commode at home. Feels like her legs have gotten weak. - Level of function Prior to this admission, the patient could do the following:: Independent Ambulation Abilities prior to this admission: pt amb independently at home without AD. pt required supervision for ADL's Current Level of Function: Partially Dependent Current Equipment Used at Home: has rwx and BSC. Advised pt she could put BSC over toilet to increase height and have rails to assist with sit to stand transfer from toilet. Interventions - Objective Patient Orientation: Person, Place, Time Current Interventions: IV's, Oxygen, Telemetry Range of Motion - ROM Right Upper Extremity AROM: WFL's Left Upper Extremity AROM: WFL's Right Lower Extremity AROM: WFL's Left Lower Extremity AROM: WFL's Muscle Strength - Muscle Strength Right Upper Extremity Strength: Mild Weakness (grossly 4/5) Left Upper Extremity Strength: Mild Weakness (grossly 4/5) Right Lower Extremity Strength: Mild Weakness (hip flex 4-/5, knee flex/ext 4/5 , ankle DF/PF 4/5) Left Lower Extremity Strength: Mild Weakness (hip flex 4-/5, knee flex/ext 4/5, ankle DF/PF 4/5) Sensation - Sensation Right Upper Extremity Sensation: Intact/Normal Left Upper Extremity Sensation: Intact/Normal Right Lower Extremity Sensation: Intact/Normal Left Lower Extremity Sensation: Intact/Normal Palpation Palpation Findings: Tenderness, Muscle Guarding Comments:: upper traps, scapular muscles Balance - Sitting Balance and Reactions Static Sitting Balance: Good Dynamic Sitting Balance: Good - Standing Balance and Reactions Static Standing Balance: Fair Dynamic Standing Balance: Fair Standing Equilibrium Reactions: Delayed Left, Delayed Right Standing Protective Reactions: Delayed Left, Delayed Right - Comments Balance Assessment Comments: pt with no LOB with amb, pt has increased lat sway with amb. Functional Mobility - Bed Mobility Rolling R/L: Independent Scooting: Independent Supine to Sit: Supervision Sit to Supine: Supervision - Transfers Sit to Stand: CGA Stand to Sit: CGA - Safety Awareness Safety Awareness: Fair Ambulation - Ambulation Assistive Device Used: Rolling Walker Orthotic/Prosthetic Device: No Distance: 140ft Assistance needed with Ambulation: CGA Gait Deviations: Forward posture, Short stride Ambulation Comments: pt amb with decreased step length and increased lat sway with rwx. pt requires cues for sequencing. Factors Affecting Ambulation: Decreased Balance, Breathing/O2 Saturation, Weakness, Cognitive Status, Limited Endurance Treatment time - Time with patient Total treatment time: 27 Patient Education - Education Patient Education: Education of Plan of Care Teaching Recipient: Patient Teaching Methods: Discussion (Discussion regarding POC and PLB) Assessment - Assessment Problem List:: Decreased level of function, Requires training/education, Decreased safety/Risk of falls, Weakness, Cognitive status limits abilities Rehab Potential: Good Further Therapy Indicated?: Yes Comments: Feel pt will only require short term PT for education on safety and balance and strengthening. Evaluation Complexity: HISTORY: Medium (COPD, HTN, anxiety, dementia), EXAM OF BODY SYSTEMS: Medium (balance, strength, gait safety), CLINICAL PRESENTATION: Medium (evolving), CLINICAL DECISION MAKING: Medium Short Term Goals GOAL #1: pt demonstrate independence with bed mobility Goal to be met by: 05/29/17 Progress towards Goal:: Not Met GOAL #2: pt transfer sup to/from sit to/from stand SBA Goal to be met by: 05/29/17 Progress towards Goal:: Not Met GOAL #3: pt amb 140ft with rwx with SBA with O2 Goal to be met by: 05/29/17 Progress towards Goal:: Not Met Assisted Goals GOAL #1: pt strength BLE 4 to 4+/5 and independent with HEP Goal to be met by: 05/31/17 Progress towards goal: Not Met GOAL #2: pt amb functional distances with rwx with O2 and SBA with no LOB Goal to be met by: 05/31/17 Progress towards goal: Not Met GOAL #3: pt transfer sup to/from sit to/from stand independently Goal to be met by: 05/31/17 Progress towards goal: Not Met Plan Plan of Care: Therapeutic EX, Therapeutic Activity Other:: gait training Frequency of Treatment: 1-2 X day, as tolerated Duration of Treatment: 4-5 days Anticipated Discharge Destination: Home Has the Physician been added for Co-signature?: Yes
[2017-05-28] MEDS: BUDESONIDE 180 MCG INH SCH (08:50)
[2017-05-28] MEDS: BECLOMETHASONE DIPROPIONATE INH SCH (08:50)
[2017-05-28] MEDS: SPIRIVA IH SCH (08:54)
[2017-05-28] MEDS: VITAMIN D PO SCH (08:54)
[2017-05-28] MEDS: LYRICA PO SCH (08:54)
[2017-05-28] MEDS: XANAX PO PRN (08:54)
[2017-05-28] MEDS: COZAAR PO SCH (08:55)
[2017-05-28] MEDS: ASPIRIN EC PO SCH (08:55)
[2017-05-28] MEDS: K-DUR PO SCH ×2 (08:55→12:27)
[2017-05-28] MEDS: LEXAPRO PO SCH (08:55)
[2017-05-28] MEDS: DYAZIDE PO SCH (08:55)
[2017-05-28] MEDS: CYMBALTA PO SCH (08:56)
[2017-05-28] MEDS: COREG PO SCH (08:56)
[2017-05-28] MEDS: DALIRESP PO SCH (08:56)
[2017-05-28] MEDS: MINOXIDIL PO SCH (08:56)
[2017-05-28] MEDS: NON-FORMULARY MEDICATION (Cyanocobalamin (Vitamin B-12) [B-12] 500 MCG) PO SCH (08:57)
[2017-05-28] MEDS: CATAPRES PO SCH (08:57)
--- NOTE | 2017-05-28 10:52 | PCM.PROG ---
Attending Provider: ATTENDING PROVIDER: Dr. SIDDHARTHA BRITO This patient is seen with Rupal Perez, Nurse Practitioner. DATE OF SERVICE: 05/28/17 SUBJECTIVE: This 72 year old WHITE/ F was hospitalized 05/26/17. The patient is lying in bed, alert. UA was abnormal yesterday. Will start p.o. antibiotics. No fever today. Up with physical therapy yesterday, to have PT evaluation today. REVIEW OF SYSTEMS: CONSTITUTIONAL: weakness. No night sweats. No malaise, lethargy. No fever or chills. HEENT: Eyes: No visual changes. No eye pain. No eye discharge. ENT: No runny nose. No epistaxis. No sinus pain. No odynophagia. No congestion. RESPIRATORY: No cough, no congestion. No hemoptysis. Shortness of breath as usual. CARDIOVASCULAR: No angina symptoms. No CHF symptoms. No atypical chest pain for CAD. No palpitations. No orthopnea.. GASTROINTESTINAL: No abdominal pain. No nausea or vomiting. No diarrhea or constipation. No hematemesis. No hematochezia. GENITOURINARY: Positive for dysuria. No urgency. No frequency. No hematuria. No obstructive symptoms. No discharge. No pain. No significant abnormal bleeding. MUSCULOSKELETAL: No musculoskeletal pain; no joint swelling. NEUROLOGICAL: Awake, alert, oriented to time, place and person. No headache. No neck pain. No syncope. No seizures. No dizziness. PSYCHIATRIC: Not anxious. No depression. No suicidal thoughts. No homicidal thoughts. SKIN: No rash. No lesions. No wounds. ENDOCRINE: No unexplained weight loss. No weight gain. HEMATOLOGIC/LYMPHATIC: No anemia. No purpura. No petechiae. No prolonged or excessive bleeding. No palpable lymph nodes. PHYSICAL EXAMINATION: GENERAL: The patient is awake, alert and oriented, lying in bed in no distress. VITAL SIGNS: Temperature 98 F, Pulse 86, Respiratory Rate 18, BP 126/60, Pulse Ox 99% HEENT: Head normocephalic, atraumatic. Eyes: Extraocular muscles are intact. Pupils are equal, round and reactive to light and accommodation. Ears: No lesions. Nose appeared normal. Throat: No exudate or erythema. NECK: Supple. No JVD, no carotid bruit. No lymphadenopathy or thyromegaly. LUNGS: Diminished breath sounds bilaterally. Clear to auscultation. Percussion note normal. Chest symmetrical. HEART: S1, S2, no S3. No murmurs. No cyanosis or clubbing. No ascites. Pulses: Dorsalis pedis and posterior tibial pulses +1 to +2 both sides. ABDOMEN: Soft. Non-tender. Bowel sounds active. No CVA tenderness. No mass felt. EXTREMITIES: No edema. Full range of motion of all extremities, equal. NEUROLOGIC: No focal deficit. Cranial nerves II through XII are grossly intact. No headache, no double vision or headache. SKIN: Not dry. Intact. Turgor-normal. LYMPHATIC: No palpable lymph nodes/no lymphedema. MUSCULOSKELETAL: Normal joints with no swelling. Muscle tone is normal. LAB REVIEW: 05/28/17 04:45 05/28/17 04:45 05/28/17 04:45: Sodium 135 L, Potassium 3.6, Chloride 100, Carbon Dioxide 27, Anion Gap 11.6, BUN 20 H, Creatinine 1.37 H D, Estimated GFR (MDRD) 38.00, BUN/ Creatinine Ratio 14.59, Glucose 136 H, Calcium 8.4, Total Bilirubin < 0.3, AST 9 L, ALT 9 L, Alkaline Phosphatase 44 L, Total Protein 5.1 L, Albumin 3.1 L, Globulin 2.0, Albumin/Globulin Ratio 1.55 05/28/17 04:45: WBC 8.18, RBC 3.00 L, Hgb 9.1 L, Hct 25.9 L D, MCV 86.3, MCH 30.3, MCHC 35.1, RDW Coeff of Tr 14.7, Plt Count 100 L, Immature Gran % (Auto) 0.6, Neut % (Auto) 61.3, Lymph % (Auto) 29.0, [place] % (Auto) 8.9, Eos % (Auto) 0.2, Baso % (Auto) 0.0, Immature Gran # (Auto) 0.1, Neut # 5.0, Lymph # 2.4, [place] # 0.7, Eos # 0.0, Baso # 0.0 05/27/17 14:10: Urine Color Yellow, Urine Clarity Clear, Urine pH 5.5, Ur Specific [place] 1.015, Urine Protein 1+, Urine Glucose (UA) Negative, Urine Ketones Trace, Urine Blood Negative, Urine Nitrite Negative, Urine Bilirubin 1+ , Urine Urobilinogen 0.2, Ur Leukocyte Esterase Negative, Ur Squamous Epith Cells 5-10, Urine Bacteria 2+, Hyaline Casts 30-50, Urine Mucus 4+ ASSESSMENT: 1. DYSURIA, URINE CULTURE PENDING 2. GENERALIZED WEAKNESS 3. ANEMIA 4. CHRONIC KIDNEY DISEASE 5. CHRONIC RESPIRATORY FAILURE PLAN: 1. D/C IV fluids 2. PT evaluation today Plan and coordination of the patient's care discussed in the presence of Application Software Developer and nurse. CONDITION: Stable SCRIBED BY: KENISHA FRY Telegraph Mechanic scribed while in presence of service performed by Dr. Brito/Rupal Perez APRN on 05/28/17 ([id number])
[2017-05-28 13:46] VITALS: BP 90/45; TEMP 97.8
--- NOTE | 2017-05-28 14:33 | HP ---
DATE OF SERVICE: 05/26/17 REASON FOR HOSPITALIZATION: Right-sided chest pain/tightness/shortness of breath HISTORY OF PRESENT ILLNESS: 72-year-old female with complaint of right-sided chest tightness and shortness of breath. The patient has no appetite, has nausea. She has lost 10 lbs in two weeks. She complains of weakness and fatigue, shortness of breath with exertion. The patient was seen in ER on 05/25/17. PAST MEDICAL HISTORY: Chronic respiratory failure DJD spine AAA Vascular dementia COPD SOB Smoker Chronic bronchitis Hypertension [place] Depression Dyslipidemia Anemia PAD PAST SURGICAL HISTORY: Colonoscopy Fem/Pop 10/28 Hysterectomy REVIEW OF SYSTEMS: CONSTITUTIONAL: Fatigue. No fever. HEENT: No sinus drainage, no sore throat. RESPIRATORY: Mild cough. No hemoptysis. CARDIOVASCULAR: No atypical chest pain for coronary artery disease. No angina , CHF symptoms, palpitations or shortness of breath. GASTROINTESTINAL: No melena or abdominal pain. No GERD. GENITOURINARY: No hematuria, no polyuria. HEATING EQUIPMENT INSTALLER: Dizziness. No blackout, no headache, no double vision. MUSCULOSKELETAL: Osteoarthritis pain. No joint swelling. ENDOCRINE: No weight loss, no weight gain. SKIN: Dry. No rash. PSYCHIATRIC: Not anxious, no depression, no suicidal thoughts, no homicidal thoughts. SOCIAL HISTORY: No drug use. Smoker. No alcohol use. with two children. Workers as a vu. FAMILY HISTORY: Father (lungs, cardiac); mother (aneurysm); Brother(s) one of aneurysm; Sister(s) one of abscess of brain. MEDICATIONS: Lexapro 20 mg one p.o. one time per day Pantoprazole 40 mg one p.o. one daily Hydralazine 50 mg one p.o. two times per day with food - stopped Dyazide 37.5-25 mg one p.o. once daily Carvedilol one p.o. two times per day with food Carafate 1 gm p.o. one time per day on empty stomach one hour before meals and at bedtime Alprazolam 0.25 mg one p.o. two times per day p.r.n. Stiolto Respimat 2.5-2.5 mg inhale two puffs once daily at the same time each day Qvar 80 mcg one puff two times per day Lyrica 50 mg one p.o. two times per day Cozaar 50 mg one p.o. daily Clonidine one tablet p.o. two times per day Carvedilol one p.o. two times per day with food Budesonide 180 mcg one puff two times per day Crestor 10 mg one p.o. per day Daliresp 500 mcg one tablet p.o. once daily Ventolin one puff as needed every 4 to 6 hours Brovana 15 mcg/2 mL two times per day p.r.n. Cymbalta 60 mg one p.o. daily Cilostazol 100 mg p.o. two times per day 1/2 hour before or 2 hours after breakfast and dinner Potassium Chloride one p.o. with food one time per day Spiriva with Handihaler 18 mcg one inhalation p.o. daily Vitamin D 400 unit capsule one tablet p.o. one time per day Cyanocobalamin/Vitamin B12 one tablet p.o. one time daily ALLERGIES: NKDA PHYSICAL EXAMINATION: V/S: Pulse 106, BP 140/80, temperature 98.6, 02 sat 88% on /NC. Height 5'5 ", weight 107.8 lbs. BMI 17.9. GENERAL APPEARANCE: Oriented times three. Skin dry. Skin turgor not normal. HEENT: Normal. NECK: No JVP, no bruits. RESPIRATORY: Decreased breath sounds. Lungs are clear. CARDIOVASCULAR: S1, S2, no S3, no murmurs. No cyanosis, clubbing. No ascites. GI/ABDOMEN: No tenderness. Bowel sounds are active. EXTREMITIES: No edema, pulses +1, equal. HEATING EQUIPMENT INSTALLER: Deep tendon reflexes, sensory, motor and gait all normal. RECTAL/PELVIC: Colonoscopy refused. Pelvic: Hysterectomy. Mammogram 06/27. Bone density refused repeat. ASSESSMENT: 1. FLU TYPE SYMPTOMS 2. DEHYDRATION 3. WEIGHT LOSS (10 LBS IN 2 WEEKS) 4. CHEST PAIN/TIGHTNESS, RIGHT-SIDED TIMES TWO WEEKS 5. SHORTNESS OF BREATH/RESPIRATORY FAILURE PLAN: 1. Routine telemetry orders 2. D/C Minoxidil 5 mg p.o. b.i.d. 3. 1000 cc D5 1/2 NS q.12hourly 4. Minoxidil 2.5 mg p.o. b.i.d. 5. 1 cc Decadron IM 6. Toradol 30 mg IV now and 8 hourly 7. Diet regular 8. ABG's today 9. Rapid Flu A & B 10. UA, culture and sensitivity 11. Physical therapy for ambulation 12. D/C Crestor 13. T4, TSH 14. Xopenex q.6hourly 15. Pulmicort nebs b.i.d. 16. Oxygen 2L/cannula/min TIME SPENT: More than 70 minutes. MTDD
--- NOTE | 2017-05-28 14:47 | CM.DICTOOL ---
ADMISSION: 05/26/17 14:49 DISCHARGE: 2017 DATE OF SERVICE: 05/28/17 FINAL DIAGNOSIS DEHYDRATION RIGHT SIDE CHEST TIGHTNESS WEIGHT LOSS FLU SYMPTOMS CHRONIC RESPIRATORY FAILURE, OXYGEN DEPENDENT COPD HYPERTENSION CAD WITH STENT APPLICATION DYSLIPIDEMIA ANEMIA PERIPHERAL ARTERIAL DISEASE GENERALIZED ANXIETY DISORDER VASCULAR DEMENTIA DEPRESSION AAA HYSTERECTOMY DJD SPINE CHRONIC SMOKING DYSURIA LAST VITALS Temp Pulse Resp BP Pulse Ox 97.8 F 85 20 90/45 L 97 05/28/17 13:45 05/28/17 13:45 05/28/17 13:45 05/28/17 13:45 05/28/17 13:45 ACTIVE HOME MEDICATIONS Albuterol Sulfate (Proair Hfa) 1 puff IH Q4-6H PRN PRN Reason: shortness of air Alprazolam (Xanax) 0.25 mg PO BID PRN PRN Reason: Anxiety Last Admin: 05/28/17 08:54 Dose: 0.25 mg Aspirin (Aspirin Ec) 81 mg PO DAILYWM [facility] Last Admin: 05/28/17 08:55 Dose: 81 mg Carvedilol (Coreg) 25 mg PO BIDWM [facility] Last Admin: 05/28/17 08:56 Dose: 25 mg Cholecalciferol (Vitamin D) 400 unit PO DAILY [facility] Last Admin: 05/28/17 08:54 Dose: 400 unit Cilostazol (Pletal) 100 mg PO BIDAC [facility] Last Admin: 05/28/17 05:49 Dose: 100 mg Clonidine (Catapres) 0.1 mg PO BID [facility] Last Admin: 05/28/17 08:57 Dose: 0.1 mg Duloxetine HCl (Cymbalta) 60 mg PO DAILY [facility] Last Admin: 05/28/17 08:56 Dose: 60 mg Escitalopram Oxalate (Lexapro) 20 mg PO DAILY [facility] Last Admin: 05/28/17 08:55 Dose: 20 mg Losartan Potassium (Cozaar) 50 mg PO DAILY [facility] Last Admin: 05/28/17 08:55 Dose: 50 mg Minoxidil (Minoxidil) 2.5 mg PO BID [facility] Last Admin: 05/28/17 08:56 Dose: 2.5 mg Non-Formulary Medication (Beclomethasone Dipropionate [Qvar]) 1 puff INH BID [facility] Last Admin: 05/28/17 08:50 Dose: Not Given Non-Formulary Medication (Budesonide [Pulmicort Flexhaler]) 180 mcg INH BID [facility] Last Admin: 05/28/17 08:50 Dose: Not Given Non-Formulary Medication (Cyanocobalamin (Vitamin B-12) [B-12]) 500 mcg PO DAILY [facility] Last Admin: 05/28/17 08:57 Dose: Not Given Non-Formulary Medication (Tiotropium Br/Olodaterol Hcl [Stiolto Respimat Inhal [place]]) 2.5 mcg IH DAILY [facility] Last Admin: 05/28/17 08:51 Dose: Not Given Non-Formulary Medication (Arformoterol Tartrate [Brovana]) 15 mcg INH BID PRN PRN Reason: Bronchospasm Ondansetron HCl (Zofran 4 Mg/2 Ml) 4 mg IVP Q6H PRN PRN Reason: Nausea / Vomiting Last Admin: 05/26/17 20:41 Dose: 4 mg Pantoprazole Sodium (Protonix) 40 mg PO QDAC [facility] Last Admin: 05/28/17 05:49 Dose: 40 mg Potassium Chloride (Micro-K cap) 10 meq PO DAILY [facility] Last Admin: 05/28/17 12:27 Dose: 20 meq Pregabalin (Lyrica) 50 mg PO BID [facility] Last Admin: 05/28/17 08:54 Dose: 50 mg Roflumilast (Daliresp) 500 mcg PO DAILY [facility] Last Admin: 05/28/17 08:56 Dose: 500 mcg Rosuvastatin (Crestor) 20 mg PO at Bedtime Last Admin: Sucralfate (Carafate) 1 gm PO ACHS [facility] Last Admin: 05/28/17 12:27 Dose: 1 gm Tiotropium [place] (Spiriva) 1 cap IH DAILY [facility] Last Admin: 05/28/17 08:54 Dose: 1 cap Triamterene/HCTZ (Dyazide) 1 cap PO DAILY [facility] Last Admin: 05/28/17 08:55 Dose: 1 cap ALLERGIES No Known Allergies Allergy (Verified 05/24/17 16:29) NEW PRESCRIPTIONS: Macrobid 100 mg BID for 7 DAYS SMOKING: ADVISED TO STOP SMOKING DISEASE SPECIFIC EDUCATION: NUTRITION DEHYDRATION MEDICATIONS LAB REVIEW: 05/28/17 04:45 05/28/17 04:45 05/28/17 04:45: Sodium 135 L, Potassium 3.6, Chloride 100, Carbon Dioxide 27, Anion Gap 11.6, BUN 20 H, Creatinine 1.37 H D, Estimated GFR (MDRD) 38.00, BUN/ Creatinine Ratio 14.59, Glucose 136 H, Calcium 8.4, Total Bilirubin < 0.3, AST 9 L, ALT 9 L, Alkaline Phosphatase 44 L, Total Protein 5.1 L, Albumin 3.1 L, Globulin 2.0, Albumin/Globulin Ratio 1.55 05/28/17 04:45: WBC 8.18, RBC 3.00 L, Hgb 9.1 L, Hct 25.9 L D, MCV 86.3, MCH 30.3, MCHC 35.1, RDW Coeff of Tr 14.7, Plt Count 100 L, Immature Gran % (Auto) 0.6, Neut % (Auto) 61.3, Lymph % (Auto) 29.0, [place] % (Auto) 8.9, Eos % (Auto) 0.2, Baso % (Auto) 0.0, Immature Gran # (Auto) 0.1, Neut # 5.0, Lymph # 2.4, [place] # 0.7, Eos # 0.0, Baso # 0.0 05/27/17 14:10: Urine Color Yellow, Urine Clarity Clear, Urine pH 5.5, Ur Specific [place] 1.015, Urine Protein 1+, Urine Glucose (UA) Negative, Urine Ketones Trace, Urine Blood Negative, Urine Nitrite Negative, Urine Bilirubin 1+ , Urine Urobilinogen 0.2, Ur Leukocyte Esterase Negative, Ur Squamous Epith Cells 5-10, Urine Bacteria 2+, Hyaline Casts 30-50, Urine Mucus 4+ PLAN: DISCHARGE HOME DIET: REGULAR TOLERATED. EAT SEVERAL SMALL MEALS DAILY, INCLUDE PROTEIN SOURCES WITH ALL MEALS ACTIVITY: GRADUALLY RESUME TOLERATED USE OXYGEN AT 2 LITERS CONTINUOUSLY CONTINUE TO USE NEBULIZER TREATMENTS TWICE DAILY (BROVANA) MEDICATION CHANGE DECREASE MINOXIDIL TO 2.5 MG TWICE A DAY A REFERRAL HAS BEEN SENT TO [facility] FOR NURSING VISITS, INCLUDING RESPIRATORY ASSESSMENT, NUTRITION/WEIGHT, PHYSICAL, OCCUPATIONAL AND SPEECH THERAPY EVALUATION. AN APPOINTMENT IS SCHEDULED WITH DR. BRITO/MILDRED TRAN APRN ON AT 2:15 MRS. BERMUDEZ IS ALERT AND ORIENTED X 3. SHE IS INDEPENDENT WITH ACTIVITIES OF DAILY LIVING, BUT REQUIRES ADDITIONAL TIME TO COMPLETE BATHING AND DRESSING DUE TO SHORTNESS OF AIR. SHE IS OXYGEN DEPENDENT WITH CONTINUOUS OXYGEN AT 2 LITERS PER NASAL CANNULA. MEAL INTAKES HAVE BEEN 25-50% SINCE HER ADMISSION. SHE DENIES NAUSEA TODAY, NO EMESIS SINCE HER ADMISSION. SHE HAS OXYGEN, NEBULIZER, ROLLATOR AT HOME FOR HER USE. THE PATIENT HAS EXPRESSED AN INTEREST IN HOME HEALTH AND IN HOME THERAPY. DR. BRITO IS AGREEABLE. A REFERRAL WILL BE SENT TO [facility] AT THE REQUEST OF THE PATIENT. SKIN IS INTACT, BUT AREAS OF ECCHYMOSIS ARE NOTED TO THE LEFT KNEE. SIDDHARTHA BRITO MD MILDRED TRAN APRN
--- NOTE | 2017-06-01 09:33 | PN ---
DATE OF SERVICE: 05/27/17 SUBJECTIVE: 72 year old white female hospitalized with flu type of symptoms. She is feeling a lot better. She is on Decadron and Toradol IV. She is hypokalemic borderline and she is feeling better. Her appetite has improved. REVIEW OF SYSTEMS: CONSTITUTIONAL: No night sweats. No fatigue, malaise, lethargy. No fever or chills. HEENT: Eyes: No visual changes. No eye pain. No eye discharge. ENT: No runny nose. No epistaxis. No sinus pain. No sore throat. No odynophagia. No congestion. RESPIRATORY: No cough, no congestion. No hemoptysis. No shortness of breath. CARDIOVASCULAR: No angina symptoms. No CHF symptoms. No atypical chest pain for CAD. No palpitations. No orthopnea. The patient had chest tightness on admission. EKG doesn't show any acute changes. GASTROINTESTINAL: No abdominal pain. No nausea or vomiting. No diarrhea or constipation. No hematemesis. No hematochezia. GENITOURINARY: No urgency. No frequency. No dysuria. No hematuria. No obstructive symptoms. No discharge. No pain. No significant abnormal bleeding. MUSCULOSKELETAL: No musculoskeletal pain; no joint swelling. NEUROLOGICAL: No headache. No neck pain. No syncope. No seizures. No dizziness. PSYCHIATRIC: Not anxious. Mildly depression. No suicidal thoughts. No homicidal thoughts. SKIN: No rash. No lesions. No wounds. ENDOCRINE: No unexplained weight loss. No weight gain. HEMATOLOGIC/LYMPHATIC: No anemia. No purpura. No petechiae. No prolonged or excessive bleeding. No palpable lymph nodes. PHYSICAL EXAMINATION: GENERAL: The patient is oriented to time, place and person VITAL SIGNS: Temperature 98, pulse 90, respiratory rate 16, blood pressure 140/ 70 and pulse ox 100% on 2 liters. HEENT: Head normocephalic, atraumatic. Eyes: Extraocular muscles are intact. Pupils are equal, round and reactive to light and accommodation. Ears: No lesions. Nose appeared normal. Throat: No exudate or erythema. NECK: Supple. No JVD, no carotid bruit. No lymphadenopathy or thyromegaly. LUNGS: Decreased breath sounds but clear to auscultation. Percussion note normal. Chest symmetrical. HEART: S1, S2, no S3. No murmurs. No cyanosis or clubbing. No ascites. Pulses: Dorsalis pedis and posterior tibial pulses +1 to +2 both sides. ABDOMEN: Soft. Nontender. Bowel sounds active. No CVA tenderness. No mass felt. EXTREMITIES: No edema. Full range of motion of all extremities, equal. NEUROLOGIC: No focal deficit. Cranial nerves II through XII are grossly intact. No headache, no double vision or headache. SKIN: Not dry. Intact. Turgor - normal. LYMPHATIC: No palpable lymph nodes/no lymphedema. MUSCULOSKELETAL: Normal joints with no swelling. Muscle tone is normal. LABS: Potassium was 3.3 yesterday. T4 TSH normal ASSESSMENT: 1. Flu type of symptoms with dehydration 2. Chest tightness seems to be resolving 3. Chronic respiratory failure, still smoking 4. COPD 5. Likely Coronary artery disease so far the work up has been negative for significant coronary insufficiency PLAN: 1. Counseling for smoking done 2. Continue steroids and Toradol along with potassium supplements 3. The patient is encouraged to walk 4. Will consider patient for swing bed. CONDITION: Stable TIME SPENT: More than 30 minutes. Plan and coordination of the patient's care discussed in the presence of nurse. KEVIN
--- NOTE | 2017-06-03 11:46 | PN ---
DATE OF SERVICE: 05/28/17 SUBJECTIVE: The patient was hospitalized with respiratory failure and chest pain. The patient's chest pain is noncardiac. Respiratory failure seems to be a lot better. Hypoxemia has resolved and her condition has improved. The patient will be discharged home. The patient was counseled for smoking. Also advised to join the pulmonary rehab. The patient was seen and examined with the Nurse Practitioner. TIME SPENT: More than 30 minutes. Plan and coordination of the patient's care discussed in the presence of nurse. KEVIN
--- NOTE | 2017-06-24 14:00 | DS ---
DATE OF SERVICE: 05/28/17 FINAL DIAGNOSIS: 1. DYSURIA 2. DEHYDRATION 3. RIGHT SIDE CHEST TIGHTNESS 4. WEIGHT LOSS 5. FLU SYMPTOMS 6. CHRONIC RESPIRATORY FAILURE, OXYGEN DEPENDENT 7. COPD 8. HYPERTENSION 9. CAD WITH STENT APPLICATION 10. DYSLIPIDEMIA 11. ANEMIA 12. PERIPHERAL ARTERIAL DISEASE 13. GENERALIZED ANXIETY DISORDER 14. VASCULAR DEMENTIA 15. DEPRESSION 16. AAA 17. HYSTERECTOMY 18. DJD SPINE 19. CHRONIC SMOKING DISCHARGE INSTRUCTIONS: 1. Followup appointment is scheduled with Dr. Dawson/Rupal Perez APRN on at 2:15 p.m. 2. Use oxygen at 2L continuously. Continue to use nebulizer treatments twice daily ([place]) 3. Medication change: Decrease Minoxidil to 2.5 mg twice a day 4. A referral has been sent to [facility] for nursing visits including respiratory assessment, nutrition/weight, physical, occupational and speech therapy evaluation. MEDICATIONS AT DISCHARGE: ProAir Hfa one puff IH q.4-6h p.r.n. Xanax 0.25 mg p.o. b.i.d. p.r.n. Aspirin 81 mg p.o. daily with meal AYAD Coreg 25 mg p.o. b.i.d. with meal AYAD Vitamin D 400 unit p.o. daily AYAD Pletal 100 mg p.o. b.i.d. a.c. AYAD Catapres 0.1 mg p.o. b.i.d. AYAD Cymbalta 60 mg p.o. daily AYAD Lexapro 20 mg p.o. daily AYAD Losartan (Cozaar) 50 mg p.o. daily AYAD Minoxidil 2.5 mg p.o. b.i.d. AYAD Beclomethasone Dipropionate (Qvar) one puff INH b.i.d. AYAD Pulmicort Flexhaler 180 mcg INH b.i.d. AYAD Cyanocobalamin 500 mcg p.o daily AYAD Tiotropium Br/Olodaterol Hci (Stiolto Respimat Inhal [place]) 2.5 mcg IH daily AYAD Arformoterol Tartrate [place] 15 mcg INH b.i.d. p.r.n. Zofran 4 mg IVP q.6h p.r.n. Protonix 40 mg p.o. q.d. a.c. AYAD Micro-K 10 mEq p.o. daily AYAD Lyrica 50 mg p.o. b.i.d. AYAD Daliresp 500 mcg p.o. daily AYAD Crestor 20 mg p.o. bedtime Carafate 1 gm p.o. a.c. h.s. AYAD Spiriva one cap IH daily AYAD Dyazide one cap p.o. daily AYAD NEW PRESCRIPTIONS: Macrobid 100 mg b.i.d. DIET INSTRUCTIONS: Regular as tolerated. Eat several small meals daily, include protein sources with all meals. ACTIVITY: Gradually resume as tolerated. SMOKING: Advised to stop smoking DISEASE SPECIFIC EDUCATION: Nutrition Dehydration Medications HOSPITAL COURSE: This 72-year-old white female with chronic respiratory failure presented to the emergency room complaining of chest tightness on the right side, shortness of breath. She is a heavy smoker with severe COPD, oxygen dependent. She has chronic respiratory failure, history of coronary artery disease. Her kidney function was slightly elevated showing dehydration. Her ABGs were surprisingly baseline for her. She was not found to be in any acute respiratory distress. She was admitted, placed on IV fluids, D5 1/2 NS at 83 cc/hr. Chest x-ray revealed normal atelectasis, no pneumonia. UA was done which showed 2 to 3+ bacteria with mucus so we started her on Macrobid 100 mg b.i.d. for the next 7 days. Her potassium was slightly low at 3.3. She has a history of this. She was started on 20 mEq t.i.d. and today on day of discharge her potassium is 3.6. Again, she has a history of chronic respiratory failure with shortness of breath and weakness. Physical and Occupational Therapy Evaluation was done as she was going to be evaluated for swing bed but she changed her mind and subsequently decided to do PT and OT at home through Home Health. The patient is agreeable to this as well as her . Her hemoglobin was stable on admission. It has gone down slightly due to hemodilution of 9.1 today with hematocrit of 25.9. Sodium 135, potassium 3.6, kidney function has improved. BUN 20, creatinine 1.37 and glucose 136. Her vital signs have been stable. Her chest tightness resolved within 24 hours after admission. She was given Toradol 30 mg IV, this is likely due to osteoporosis and osteoarthritis and the effort required for her to breathe due to severe COPD. We will discontinue her IV fluids which was done this morning. She will go home with her nebulizers. She had Xopenex and Pulmicort at home. She will continue these. Again, we will send her home on the Macrobid for possible UTI as the culture is still pending. She will be discharged home in stable condition with PT/OT. TIME SPENT: More than 60 minutes. MTDD
== END 2017-05-28 15:19 | disposition home or self-care (01) | DRG 313 ==
LOC: MEDSURG A 14:49
PROVIDERS: ADMIT Internal Medicine; ATTEND Internal Medicine
DX: R07.89 Other chest pain (principal); J96.10 Chronic respiratory failure, unspecified whether with hypoxia or hypercapnia; R30.0 Dysuria; R11.0 Nausea; F17.210 Nicotine dependence, cigarettes, uncomplicated; E86.0 Dehydration; R53.1 Weakness; N18.9 Chronic kidney disease, unspecified; R63.4 Abnormal weight loss; J44.9 Chronic obstructive pulmonary disease, unspecified; I10 Essential (primary) hypertension; I25.10 Atherosclerotic heart disease of native coronary artery without angina pectoris; E78.5 Hyperlipidemia, unspecified; D64.9 Anemia, unspecified; I73.9 Peripheral vascular disease, unspecified; F41.1 Generalized anxiety disorder; F03.90 Unspecified dementia, unspecified severity, without behavioral disturbance, psychotic disturbance, mood disturbance, and anxiety; F32.9 Major depressive disorder, single episode, unspecified; I71.4 Abdominal aortic aneurysm, without rupture; M47.9 Spondylosis, unspecified; Z99.81 Dependence on supplemental oxygen
CPT/HCPCS: 36415; 80053; 81001; 82550; 82803; 84439; 84443; 84484; 85025; 87081; 87086; 87502; 93005; 93010; 94640; 99223; 99232; 99239

== ENCOUNTER 2017-06-17 06:49 | Outpatient (RCR) | END 2017-07-17 | LOC: PUL.REHAB 06:49 | PROVIDERS: ATTEND Internal Medicine | DX: J44.9 Chronic obstructive pulmonary disease, unspecified (principal) ==

== ENCOUNTER 2017-06-17 12:45 | Inpatient (IN) ==
[2017-06-17] MEDS ORDERED: SOLU-CORTEF 250 MG IVP STA (12:49)
[2017-06-17] MEDS ORDERED: DUONEB NEB STA ×2 (12:49→13:50)
[2017-06-17] MEDS ORDERED: SODIUM CHLORIDE 1,000 ML IV STA (12:50)
[2017-06-17] MEDS ORDERED: XANAX PO PRN (12:51)
[2017-06-17] MEDS ORDERED: ATIVAN IVP STA (13:14)
--- NOTE | 2017-06-17 13:26 | DI ---
EXAM: CHEST FRONTAL VIEW HISTORY: Shortness of breath. COMPARISON: 05/26/2017 FINDINGS: Heart size is within normal limits. Moderate atherosclerotic disease. There are scattered calcifications suggesting old granulomatous disease. There is diffuse, chronic appearing interstiti al accentuation. Lungs are hyperinflated and there is relative lucency of the lung zones suggesting the possibility of pulmonary emphysema. No acute infiltrates are seen. No vascular congestion. The re is no consolidation, visible pleural fluid or pneumothorax. Bones reveal no acute fracture. IMPRESSION: Cannot exclude a component chronic obstructive pulmonary disease. Correlate clinically . No acute cardiopulmonary process.
[2017-06-17] MEDS ORDERED: XANAX PO STA (13:44)
[2017-06-17] MEDS ORDERED: XANAX ONE (13:57)
[2017-06-17] MEDS ORDERED: SOLU-MEDROL 125 MG IVP STA (14:18)
[2017-06-17] MEDS ORDERED: ROCEPHIN IM STA (14:20)
[2017-06-17] MEDS ORDERED: LIDOCAINE HCL 1% SDV SUBCUT STA (14:20)
--- NOTE | 2017-06-17 14:24 | ED.PDOC ---
General ED Provider: Dr. CHEN SHAIKH Chief Complaint: Shortness of Air Stated Complaint: short of air anxiety Time Seen by Physician: 12:48 (no pain very anxious ) Mode of Arrival: Wheelchair Information Source: Patient, Family Exam Limitations: No limitations Primary Care Provider: SIDDHARTHA VILLA Nursing and Triage Documentation Reviewed and Agree: Yes Reviewed sepsis parameters & appropriate labs ordered?: Yes (seen with marques ) System Inflammatory Response Syndrome: Not Applicable Sepsis Protocol: For patient's 13 years and over: Temp is 96.8 and below OR 101 and greater Pulse >90 BPM Resp >20/minute Acutely Altered Mental Status Are patient's symptoms suggestive of a new infection, such as: -Pneumonia -Skin, Soft Tissue -Endocarditis -UTI -Bone, Joint Infection -Implantable Device -Acute Abdominal Infection -Wound Infection -Meningitis -Blood Stream Catheter Infection -Unknown System Inflammatory Response Syndrome: Not Applicable Respiratory Complaint Exam - Respiratory Complaint/Exam Onset/Duration: chronic worse today still smokes Symptoms Are: Still present Timing: Constant Initial Severity: Moderate Current Severity: Mild Location: Nose, Throat, Chest Character: Reports: Non-productive cough Aggravating: Reports: None Alleviating: Reports: None Associated Signs and Symptoms: Reports: Wheezing, URI, Nasal congestion. Denies : Rapid breathing, Dyspnea, Fever, Chills, Chest pain, Pleuritic chest pain, Hemoptysis, Dizziness, Calf pain, Calf swelling, Edema, Hoarseness, Sinus discomfort, Vomiting, Sore throat, Weight loss, Decreased oral intake, Increased thirst, Increased appetite, Increased urination Related History: Reports: Similar episode History of Healthcare-Acquired Pneumonia: No Related Surgical History: Reports: None Pulmonary Embolism Risk Factors: Bedrest Cardiac Risk Factors: Reports: Hypertension Pseudomonas Risk Factors: Reports: Chronic Lung Disease Tuberculosis Risk Factors: Reports: Chronic Resp. Faliure Status Asthmaticus Risk Factors: Reports: None Home Oxygen Use: Yes (2l NC) Recent Stress Test: No Recent Echo/LV Function: No Current Antibiotic Use: No Current Asthma Medication Use: No Respiratory Distress: None Inadequate Respiratory Effort: No Dysphagia Present: No Stridor Present: No JVD Present: No Accessory Muscle Use: No Retractions: Not Present Diminished Breath Sounds: Yes Sinus Tenderness: None Grunting Respirations: No Kussmaul Respirations: No Differential Diagnoses: Asthma, CHF, Pulmonary Edema, COPD Exacerbation, MT, Pneumonia, Bronchitis, URI, Influenza, Lower Resp. Infection Review of Systems - Review Of Systems Constitutional: Reports: Malaise, Weakness Eyes: Reports: No symptoms Ears, Nose, Mouth, Throat: Reports: No symptoms Respiratory: Reports: Cough, Wheezing Cardiac: Reports: No symptoms GI: Reports: No symptoms : Reports: No symptoms Musculoskeletal: Reports: No symptoms Skin: Reports: No symptoms Neurological: Reports: Anxiety Endocrine: Reports: No symptoms Hematologic/Lymphatic: Reports: No symptoms All Other Systems: Reviewed and Negative Past Medical History - Past Medical History Previously Healthy: Yes Endocrine: Reports: Dyslipidemia Cardiovascular: Reports: CAD, Hypertension, Other (PAD) Respiratory: Reports: COPD Hematological: Reports: None Gastrointestinal: Reports: None Genitourinary: Reports: None Neuro/Psych: Reports: Anxiety, Depression Musculoskeletal: Reports: Arthritis, Back Pain, Joint Pain Cancer: Reports: None Last Menstrual Period: n/a - Surgical History General Surgical History: Reports: Hysterectomy, Stent Placement - Family History Family History: Reports: Unknown - Social History Smoking Status: Current every day smoker, Light tobacco smoker Hx Substance Use: No Alcohol Screening: None Physical Exam - Physical Exam Appearance: Well-appearing, No pain distress, Well-nourished Eyes: ARIEL, EOMI, Conjunctiva clear ENT: Ears normal, Nose normal, Oropharynx normal Respiratory: Airway patent, Breath sounds equal, Breath sounds diminished, Respirations nonlabored, Rhonchi Cardiovascular: RRR, Pulses normal, No rub, No murmur GI/: Soft, Nontender, No masses, Bowel sounds normal, No Organomegaly Musculoskeletal: Normal strength, ROM intact, No edema, No calf tenderness Skin: Warm, Dry, Normal color Neurological: Sensation intact, Motor intact, Reflexes intact, Cranial nerves intact, Alert, Oriented Psychiatric: Affect appropriate, Mood appropriate Physician Notification - Case Discussed Physician Notified: villa Time of Notification: 14:25 Critical Care Note - Critical Care Note Total Time (mins): 0 Course - Course Hematology/Chemistry: 06/17/17 13:05 06/17/17 13:05 Orders, Labs, Meds: Lab Review 06/17/17 06/17/17 06/17/17 13:05 13:05 13:05 WBC 12.81 H RBC 4.24 Hgb 13.0 Hct 37.1 MCV 87.5 MCH 30.7 MCHC 35.0 RDW Coeff of Tr 15.4 H Plt Count 156 Immature Gran % (Auto) 0.5 Neut % (Auto) 81.7 Lymph % (Auto) 12.1 [place] % (Auto) 5.3 Eos % (Auto) 0.2 Baso % (Auto) 0.2 Immature Gran # (Auto) 0.1 Neut # (Auto) 10.5 H Lymph # (Auto) 1.6 [place] # (Auto) 0.7 Eos # (Auto) 0.0 Baso # (Auto) 0.0 Puncture Site O2 Saturation ABG pH ABG pCO2 ABG pO2 ABG HCO3 ABG Total CO2 ABG Base Excess Miki Test O2 Delivery Device Oxygen Liter Flow FiO2 % Sodium 141 Potassium 3.5 Chloride 94 L Carbon Dioxide 33 H Anion Gap 17.5 BUN 14 Creatinine 0.76 Estimated GFR (MDRD) 75.00 BUN/Creatinine Ratio 18.42 Glucose 161 H Lactic Acid Calcium 10.5 H Total Bilirubin 0.6 AST 14 L ALT 15 Alkaline Phosphatase 56 Total Creatine Kinase 19 Troponin I 0.0190 Total Protein 6.9 Albumin 3.8 Globulin 3.1 Albumin/Globulin Ratio 1.23 Procalcitonin < 0.05 Influ A Molecular Assay Influ B Molecular Assay 06/17/17 06/17/17 06/17/17 13:05 13:07 13:35 WBC RBC Hgb Hct MCV MCH MCHC RDW Coeff of Tr Plt Count Immature Gran % (Auto) Neut % (Auto) Lymph % (Auto) [place] % (Auto) Eos % (Auto) Baso % (Auto) Immature Gran # (Auto) Neut # (Auto) Lymph # (Auto) [place] # (Auto) Eos # (Auto) Baso # (Auto) Puncture Site Rr O2 Saturation 95.0 ABG pH 7.509 H* ABG pCO2 47.1 H ABG pO2 70.0 L ABG HCO3 37.5 H ABG Total CO2 39 H ABG Base Excess 14 H Miki Test + O2 Delivery Device Nc Oxygen Liter Flow 2.00 FiO2 % 28.0 Sodium Potassium Chloride Carbon Dioxide Anion Gap BUN Creatinine Estimated GFR (MDRD) BUN/Creatinine Ratio Glucose Lactic Acid 19.2 Calcium Total Bilirubin AST ALT Alkaline Phosphatase Total Creatine Kinase Troponin I Total Protein Albumin Globulin Albumin/Globulin Ratio Procalcitonin Influ A Molecular Assay Negative by naat Influ B Molecular Assay Negative by naat Orders Category Date Time Status ABG DRAW REQUEST Stat CARDIO 06/17/17 12:48 Completed EKG-(ED ONLY) Stat CARDIO 06/17/17 12:47 Completed NEBULIZER TREATMENT Stat CARDIO 06/17/17 12:49 Completed NEBULIZER TREATMENT Stat CARDIO 06/17/17 13:50 Completed NEBULIZER TREATMENT Stat CARDIO 06/17/17 14:18 Ordered OXYGEN Routine CARDIO 06/17/17 14:20 Ordered ED IV/MEDIPORT/POWERPORT .ONCE EMERGENCY 06/17/17 12:47 Active ABG Stat LAB 06/17/17 13:07 Completed BLOOD CULTURE (ED ONLY) Stat LAB 06/17/17 13:05 Received CBC W/ AUTO DIFF Stat LAB 06/17/17 13:05 Completed COMPREHENSIVE METABOLIC PANEL Stat LAB 06/17/17 13:05 Completed CREATINE KINASE Stat LAB 06/17/17 13:05 Completed FLU A/B MOLECULAR Stat LAB 06/17/17 13:35 Completed LACTIC ACID Stat LAB 06/17/17 13:05 Completed MOLECULAR GROUP A STREP Stat LAB 06/17/17 13:35 Completed PROCALCITONIN Stat LAB 06/17/17 13:05 Completed TROPONIN I Stat LAB 06/17/17 13:05 Completed 0.9 % Sodium Chloride [Saline Flush] MEDS 06/17/17 12:47 Active 1 syr IVF PRN PRN Alprazolam [Xanax] MEDS 06/17/17 12:51 Active 0.25 mg PO BID PRN Alprazolam [Xanax] MEDS 06/17/17 13:44 Discontinued 0.25 mg PO ONCE STA Alprazolam [Xanax] MEDS 06/17/17 14:17 Ordered 0.25 mg PO TID PRN Carvedilol [Coreg] MEDS 06/17/17 17:30 Active 25 mg PO BIDWM Ceftriaxone Sodium [Rocephin] MEDS 06/17/17 14:20 Stat 1 gm IM ONCE STA Hydrocortisone Sod Succ/Pf [Solu-Cortef 250 mg] MEDS 06/17/17 12:49 Discontinued 250 mg IVP ONCE STA Ipratropium/Albuterol Neb [Duoneb] MEDS 06/17/17 12:49 Discontinued 1 vial NEB ONCE STA Ipratropium/Albuterol Neb [Duoneb] MEDS 06/17/17 13:50 Discontinued 1 vial NEB ONCE STA Ipratropium/Albuterol Neb [Duoneb] MEDS 06/17/17 18:00 Ordered 1 vial NEB RTQ6H Lidocaine HCl/Pf [Lidocaine HCl 1% Sdv] MEDS 06/17/17 14:20 Stat 5 ml SUBCUT ONCE STA Lorazepam Inj [Ativan] MEDS 06/17/17 13:14 Discontinued 0.5 mg IVP ONCE STA Methylprednisolone Sod Succ/Pf [Solu-Medrol 125 mg] MEDS 06/17/17 14:18 Stat 125 mg IVP ONCE STA Methylprednisolone Sod Succ/Pf [Solu-Medrol 125 mg] MEDS 06/17/17 21:00 Ordered 60 mg IVP Q8HR Sodium Chloride 0.9% [Sodium Chloride] 1,000 ml MEDS 06/17/17 12:50 Active IV 80 mls/hr CHEST, 1V AP ONLY Stat RADS 06/17/17 12:48 Completed Medications Generic Name Dose Route Start Last Admin Trade Name Freq PRN Reason Stop Dose Admin Albuterol/Ipratropium 1 vial 06/17/17 18:00 Duoneb NEB RTQ6H AYAD Alprazolam 0.25 mg 06/17/17 12:51 Xanax PO BID PRN Anxiety Alprazolam 0.25 mg 06/17/17 14:17 Xanax PO TID PRN Anxiety Carvedilol 25 mg 06/17/17 17:30 Coreg PO BIDWM AYAD Sodium Chloride 1,000 mls @ 80 mls/hr 06/17/17 12:50 Sodium Chloride IV 06/18/17 01:19 .[id number] STA Methylprednisolone Sodium Succinate 60 mg 06/17/17 21:00 Solu-Medrol 125 Mg IVP Q8HR AYAD Sodium Chloride 1 syr 06/17/17 12:47 Saline Flush IVF PRN PRN To flush IV Discontinued Medications Generic Name Dose Route Start Last Admin Trade Name Freq PRN Reason Stop Dose Admin Albuterol/Ipratropium 1 vial 06/17/17 12:49 06/17/17 13:12 Duoneb NEB 06/17/17 12:50 1 vial ONCE STA Administration Albuterol/Ipratropium 1 vial 06/17/17 13:50 06/17/17 13:56 Duoneb NEB 06/17/17 13:51 1 vial ONCE STA Administration Alprazolam 0.25 mg 06/17/17 13:44 06/17/17 13:57 Xanax PO 06/17/17 13:45 0.25 mg ONCE STA Administration Ceftriaxone Sodium 1 gm 06/17/17 14:20 Rocephin IM 06/17/17 14:21 ONCE STA Hydrocortisone Sodium Succinate 250 mg 06/17/17 12:49 06/17/17 13:02 Solu-Cortef 250 Mg IVP 06/17/17 12:50 250 mg ONCE STA Administration Lidocaine HCl 5 ml 06/17/17 14:20 Lidocaine Hcl 1% Sdv SUBCUT 06/17/17 14:21 ONCE STA Lorazepam 0.5 mg 06/17/17 13:14 06/17/17 13:32 Ativan IVP 06/17/17 13:15 Not Given ONCE STA Methylprednisolone Sodium Succinate 125 mg 06/17/17 14:18 Solu-Medrol 125 Mg IVP 06/17/17 14:19 ONCE STA Vital Signs: Temp Pulse Resp BP Pulse Ox 06/17/17 12:45 97.6 F 117 H 28 H 189/91 H 95 Departure - Departure Time of Disposition: 14:25 Disposition: ADMITTED INPATIENT Discharge Problem: SOB (shortness of breath), COPD exacerbation Instructions: COPD (Chronic Obstructive Pulmonary Disease) (ED) Condition: Good Pt referred to PMD for follow-up: Yes IPMP verified?: No Allergies/Adverse Reactions: Allergies No Known Allergies Allergy (Verified 05/24/17 16:29) Home Medications: Ambulatory Orders Cilostazol [Pletal] 100 mg PO BIDAC 12/09/12 Roflumilast [Daliresp] 500 mcg PO DAILY 03/29/15 Duloxetine HCl [Cymbalta] 60 mg PO DAILY 06/18/15 Rosuvastatin Calcium [Crestor] 20 mg PO BEDTIME 12/27/15 Carvedilol [Coreg] 25 mg PO BIDWM 05/27/16 Clonidine HCl 0.1 mg PO BID #60 tablet 04/08/17 Escitalopram Oxalate [Lexapro] 20 mg PO DAILY #30 tablet 04/08/17 Potassium Chloride [Micro-K Cap] 10 meq PO DAILY #30 capsule.er 04/08/17 Losartan Potassium [Cozaar] 100 mg PO DAILY 04/20/17 Alprazolam [Xanax] 0.25 mg PO TID PRN 05/26/17 Cholecalciferol (Vitamin D3) [Vitamin D] 400 units PO DAILY 05/26/17 Triamterene/Hydrochlorothiazid [Dyazide 37.5-25 Capsule] 1 each PO DAILY Amlodipine Besylate 5 mg PO BID 06/17/17 Aspirin 81 mg PO DAILY 06/17/17 Clopidogrel Bisulfate [Plavix] 75 mg PO DAILY 06/17/17 Cyanocobalamin (Vitamin B-12) [Vitamin B-12] 3,000 mcg PO DAILY 06/17/17 Ferrous Sulfate 325 mg PO BID 06/17/17 Fluticasone/Umeclidin/Vilanter [Trelegy Ellipta 100-62.5-25] 1 each IH BID 06/17 Hydrocodone Bit/Acetaminophen [[place] 10-325] 1 tab PO TID PRN 06/17/17 Prednisone 10 mg PO DAILYWM 06/17/17 Pregabalin [Lyrica] 200 mg PO BID 06/17/17
[2017-06-17] MEDS: COREG PO SCH ×2 (14:40→18:20)
[2017-06-17] MEDS: XANAX PO PRN ×2 (15:04→20:24)
[2017-06-17] MEDS ORDERED: NON-FORMULARY MEDICATION (Escitalopram Oxalate [Lexapro] 20 MG) PO SCH (15:45)
[2017-06-17] MEDS ORDERED: NON-FORMULARY MEDICATION (Duloxetine Hcl [Cymbalta] 60 MG) PO SCH (15:45)
[2017-06-17] MEDS ORDERED: NON-FORMULARY MEDICATION (Losartan Potassium 100 MG) PO SCH (15:45)
[2017-06-17 15:56] VITALS: BMI 17.7
[2017-06-17] MEDS ORDERED: DUONEB NEB SCH (18:00)
[2017-06-17] MEDS: MICRO-K CAP PO SCH (18:09)
[2017-06-17] MEDS: PLAVIX PO SCH (18:10)
[2017-06-17] MEDS: CYMBALTA PO SCH (18:10)
[2017-06-17] MEDS: DYAZIDE PO SCH (18:11)
[2017-06-17] MEDS: LEXAPRO PO SCH (18:11)
[2017-06-17] MEDS: ASPIRIN CHEWABLE PO SCH (18:12)
[2017-06-17] MEDS: COZAAR PO SCH (18:13)
[2017-06-17] MEDS: DALIRESP PO SCH (18:21)
[2017-06-17] MEDS: PLETAL PO SCH (18:23)
[2017-06-17] MEDS: CYANOCOBALAMIN 3000 MCG PO SCH (18:28)
[2017-06-17] MEDS: CATAPRES PO SCH (20:23)
[2017-06-17] MEDS: CRESTOR PO SCH (20:23)
[2017-06-17] MEDS: NORVASC PO SCH (20:23)
[2017-06-17] MEDS: LYRICA PO SCH (20:24)
[2017-06-17] MEDS: FERROUS SULFATE PO SCH (20:25)
[2017-06-17] MEDS: NON-FORMULARY MEDICATION (Fluticasone/Umeclidin/Vilanter [Trelegy Ellipta 100-62.5-25] 1 E IH SCH (20:26)
[2017-06-17] MEDS: NORCO 10-325 PO PRN (20:27)
[2017-06-17] MEDS ORDERED: NON-FORMULARY MEDICATION (Ferrous Sulfate [Ferrous Sulfate] 325 MG) PO SCH (21:00)
[2017-06-17] MEDS: SOLU-MEDROL 125 MG IVP SCH (21:59)
[2017-06-18] MEDS: XOPENEX 1.25 MG NEB SCH ×4 (00:03→16:55)
[2017-06-18] MEDS: PLETAL PO SCH ×2 (05:47→17:47)
[2017-06-18] MEDS: SOLU-MEDROL 125 MG IVP SCH (05:48)
[2017-06-18] MEDS ORDERED: PREDNISONE PO SCH (08:00)
[2017-06-18] MEDS: DYAZIDE PO SCH (09:48)
[2017-06-18] MEDS: COREG PO SCH ×2 (09:48→17:47)
[2017-06-18] MEDS: ASPIRIN CHEWABLE PO SCH (09:48)
[2017-06-18] MEDS: MICRO-K CAP PO SCH (09:49)
[2017-06-18] MEDS: LEXAPRO PO SCH (09:49)
[2017-06-18] MEDS: NORVASC PO SCH ×2 (09:49→21:05)
[2017-06-18] MEDS: LYRICA PO SCH ×2 (09:49→21:04)
[2017-06-18] MEDS: FERROUS SULFATE PO SCH ×2 (09:49→21:05)
[2017-06-18] MEDS: COZAAR PO SCH (09:49)
[2017-06-18] MEDS: CYMBALTA PO SCH (09:49)
[2017-06-18] MEDS: DALIRESP PO SCH (09:49)
[2017-06-18] MEDS: CYANOCOBALAMIN 3000 MCG PO SCH (09:50)
[2017-06-18] MEDS: DECADRON 4 MG/ML SDV IM SCH (09:50)
[2017-06-18] MEDS: PLAVIX PO SCH (09:50)
[2017-06-18] MEDS: CATAPRES PO SCH ×2 (09:50→21:05)
[2017-06-18] MEDS: NON-FORMULARY MEDICATION (Fluticasone/Umeclidin/Vilanter [Trelegy Ellipta 100-62.5-25] 1 E IH SCH ×2 (09:51→21:04)
[2017-06-18] MEDS: XANAX PO SCH ×3 (09:52→21:05)
--- NOTE | 2017-06-18 11:52 | PCM.PROG ---
Attending Provider: ATTENDING PROVIDER: Dr. SIDDHARTHA BRITO This patient is seen with Rupal Perez, Nurse Practitioner. DATE OF SERVICE: 06/18/17 SUBJECTIVE: This 72 year old WHITE/ F was hospitalized 06/17/17. The patient is lying in bed, alert. Shortness of breath is improved. Anxiety. She has been taking two Xanax only at home vs the prescribed three. REVIEW OF SYSTEMS: CONSTITUTIONAL: Weakness. No night sweats. No malaise, lethargy. No fever or chills. HEENT: Eyes: No visual changes. No eye pain. No eye discharge. ENT: No runny nose. No epistaxis. No sinus pain. No odynophagia. No congestion. RESPIRATORY: No cough, no congestion. No hemoptysis. Shortness of breath improving. CARDIOVASCULAR: No angina symptoms. No CHF symptoms. No atypical chest pain for CAD. No palpitations. No orthopnea. GASTROINTESTINAL: No abdominal pain. No nausea or vomiting. No diarrhea or constipation. No hematemesis. No hematochezia. GENITOURINARY: No urgency. No frequency. No dysuria. No hematuria. No obstructive symptoms. No discharge. No pain. No significant abnormal bleeding. MUSCULOSKELETAL: No musculoskeletal pain; no joint swelling. NEUROLOGICAL: Awake, alert, oriented to time, place and person. No headache. No neck pain. No syncope. No seizures. No dizziness. PSYCHIATRIC: Not anxious. No depression. No suicidal thoughts. No homicidal thoughts. SKIN: No rash. No lesions. No wounds. ENDOCRINE: No unexplained weight loss. No weight gain. HEMATOLOGIC/LYMPHATIC: No anemia. No purpura. No petechiae. No prolonged or excessive bleeding. No palpable lymph nodes. PHYSICAL EXAMINATION: GENERAL: The patient is awake, alert and oriented, lying in bed in no distress. VITAL SIGNS: Temperature 98.6 F, Pulse 84, Respiratory Rate 12, BP 137/73, Pulse Ox 100% HEENT: Head normocephalic, atraumatic. Eyes: Extraocular muscles are intact. Pupils are equal, round and reactive to light and accommodation. Ears: No lesions. Nose appeared normal. Throat: No exudate or erythema. NECK: Supple. No JVD, no carotid bruit. No lymphadenopathy or thyromegaly. LUNGS: Diminished breath sounds bilaterally. Clear to auscultation. Percussion note normal. Chest symmetrical. HEART: S1, S2, no S3. No murmurs. No cyanosis or clubbing. No ascites. Pulses: Dorsalis pedis and posterior tibial pulses +1 to +2 both sides. ABDOMEN: Soft. Non-tender. Bowel sounds active. No CVA tenderness. No mass felt. EXTREMITIES: No edema. Full range of motion of all extremities, equal. NEUROLOGIC: No focal deficit. Cranial nerves II through XII are grossly intact. No headache, no double vision or headache. SKIN: Not dry. Intact. Turgor-normal. LYMPHATIC: No palpable lymph nodes/no lymphedema. MUSCULOSKELETAL: Normal joints with no swelling. Muscle tone is normal. LAB REVIEW: 06/18/17 04:30 06/18/17 04:30 06/18/17 04:30: Sodium 140, Potassium 3.8, Chloride 96 L, Carbon Dioxide 32 H, Anion Gap 15.8, BUN 19 H, Creatinine 0.81, Estimated GFR (MDRD) 70.00, BUN/ Creatinine Ratio 23.45, Glucose 159 H, Calcium 9.8, Total Bilirubin 0.6, AST 13 L, ALT 14, Alkaline Phosphatase 50 L, Total Protein 6.2, Albumin 3.5, Globulin 2.7, Albumin/Globulin Ratio 1.30 06/18/17 04:30: WBC 9.26, RBC 3.86 L, Hgb 11.8 L, Hct 33.6 L, MCV 87.0, MCH 30.6 , MCHC 35.1, RDW Coeff of Tr 14.9 H, Plt Count 140, Immature Gran % (Auto) 1.0 , Neut % (Auto) 81.0, Lymph % (Auto) 15.4, [place] % (Auto) 2.5, Eos % (Auto) 0.0, Baso % (Auto) 0.1, Immature Gran # (Auto) 0.1, Neut # (Auto) 7.5 H, Lymph # ( Auto) 1.4, [place] # (Auto) 0.2 L, Eos # (Auto) 0.0, Baso # (Auto) 0.0 ASSESSMENT: 1. Chronic respiratory failure 2. Acute COPD exacerbation 3. Anxiety PLAN: 1. Decadron 1 cc IM this morning and daily 2. Make Xanax scheduled t.i.d. Plan and coordination of the patient's care discussed in the presence of Cardiopulmonary Technician and nurse. CONDITION: Stable SCRIBED BY: KENISHA FRY [employer] Manager scribed while in presence of service performed by Dr. Brito/Rupal Perez APRN on 06/18/17 (2017)
[2017-06-18] MEDS: CRESTOR PO SCH (21:04)
[2017-06-18] MEDS: NORCO 10-325 PO PRN (21:09)
[2017-06-19] MEDS: XOPENEX 1.25 MG NEB SCH ×4 (00:05→17:10)
[2017-06-19] MEDS: PLETAL PO SCH ×2 (06:08→17:36)
[2017-06-19] MEDS: ASPIRIN CHEWABLE PO SCH (09:39)
[2017-06-19] MEDS: COREG PO SCH ×2 (09:39→17:36)
[2017-06-19] MEDS: COZAAR PO SCH (09:39)
[2017-06-19] MEDS: CATAPRES PO SCH ×2 (09:39→21:24)
[2017-06-19] MEDS: DALIRESP PO SCH (09:41)
[2017-06-19] MEDS: CYMBALTA PO SCH (09:41)
[2017-06-19] MEDS: CYANOCOBALAMIN 3000 MCG PO SCH (09:41)
[2017-06-19] MEDS: DECADRON 4 MG/ML SDV IM SCH (09:42)
[2017-06-19] MEDS: FERROUS SULFATE PO SCH ×2 (09:44→21:25)
[2017-06-19] MEDS: LEXAPRO PO SCH (09:44)
[2017-06-19] MEDS: DYAZIDE PO SCH (09:44)
[2017-06-19] MEDS: NON-FORMULARY MEDICATION (Fluticasone/Umeclidin/Vilanter [Trelegy Ellipta 100-62.5-25] 1 E IH SCH ×2 (09:44→21:24)
[2017-06-19] MEDS: LYRICA PO SCH ×2 (09:45→21:26)
[2017-06-19] MEDS: MICRO-K CAP PO SCH (09:46)
[2017-06-19] MEDS: NORVASC PO SCH ×2 (09:46→21:25)
[2017-06-19] MEDS: XANAX PO SCH ×3 (09:46→21:28)
[2017-06-19] MEDS: PLAVIX PO SCH (09:46)
[2017-06-19] MEDS: NORCO 10-325 PO PRN ×2 (09:50→21:25)
[2017-06-19] MEDS: CRESTOR PO SCH (21:24)
[2017-06-20] MEDS: XOPENEX 1.25 MG NEB SCH ×5 (00:45→23:30)
[2017-06-20] MEDS: PLETAL PO SCH ×2 (05:44→17:47)
[2017-06-20] MEDS: COREG PO SCH ×2 (09:08→17:39)
[2017-06-20] MEDS: ASPIRIN CHEWABLE PO SCH (09:08)
[2017-06-20] MEDS: MICRO-K CAP PO SCH (09:08)
[2017-06-20] MEDS: CYMBALTA PO SCH (09:10)
[2017-06-20] MEDS: XANAX PO SCH ×3 (09:10→20:16)
[2017-06-20] MEDS: FERROUS SULFATE PO SCH ×2 (09:11→20:16)
[2017-06-20] MEDS: LYRICA PO SCH ×2 (09:11→20:15)
[2017-06-20] MEDS: CATAPRES PO SCH ×2 (09:11→20:16)
[2017-06-20] MEDS: NORVASC PO SCH ×2 (09:11→20:16)
[2017-06-20] MEDS: LEXAPRO PO SCH (09:11)
[2017-06-20] MEDS: PLAVIX PO SCH (09:11)
[2017-06-20] MEDS: DALIRESP PO SCH (09:12)
[2017-06-20] MEDS: DYAZIDE PO SCH (09:12)
[2017-06-20] MEDS: COZAAR PO SCH (09:12)
[2017-06-20] MEDS: CYANOCOBALAMIN 3000 MCG PO SCH (09:13)
[2017-06-20] MEDS: DECADRON 4 MG/ML SDV IM SCH (09:13)
[2017-06-20] MEDS: NON-FORMULARY MEDICATION (Fluticasone/Umeclidin/Vilanter [Trelegy Ellipta 100-62.5-25] 1 E IH SCH ×2 (09:15→20:21)
[2017-06-20] MEDS: NORCO 10-325 PO PRN ×2 (09:19→20:16)
[2017-06-20] MEDS: CRESTOR PO SCH (20:16)
[2017-06-21] MEDS: XOPENEX 1.25 MG NEB SCH ×2 (05:06→11:12)
[2017-06-21] MEDS: PLETAL PO SCH (05:51)
[2017-06-21] MEDS: ASPIRIN CHEWABLE PO SCH (09:47)
[2017-06-21] MEDS: CATAPRES PO SCH (09:47)
[2017-06-21] MEDS: XANAX PO SCH (09:48)
[2017-06-21] MEDS: DALIRESP PO SCH (09:48)
[2017-06-21] MEDS: COREG PO SCH (09:48)
[2017-06-21] MEDS: CYANOCOBALAMIN 3000 MCG PO SCH (09:49)
[2017-06-21] MEDS: CYMBALTA PO SCH (09:49)
[2017-06-21] MEDS: FERROUS SULFATE PO SCH (09:49)
[2017-06-21] MEDS: DYAZIDE PO SCH (09:49)
[2017-06-21] MEDS: COZAAR PO SCH (09:50)
[2017-06-21] MEDS: NORVASC PO SCH (09:50)
[2017-06-21] MEDS: PLAVIX PO SCH (09:50)
[2017-06-21] MEDS: LEXAPRO PO SCH (09:50)
[2017-06-21] MEDS: MICRO-K CAP PO SCH (09:51)
[2017-06-21] MEDS: DECADRON 4 MG/ML SDV IM SCH (09:51)
[2017-06-21] MEDS: NON-FORMULARY MEDICATION (Fluticasone/Umeclidin/Vilanter [Trelegy Ellipta 100-62.5-25] 1 E IH SCH (09:55)
[2017-06-21] MEDS: LYRICA PO SCH (09:55)
[2017-06-21 10:24] VITALS: BP 118/55; TEMP 98.9
--- NOTE | 2017-06-21 10:48 | PCM.PROG ---
Attending Provider: ATTENDING PROVIDER: Dr. SIDDHARTHA BRITO This patient is seen with Rupal Perez, Nurse Practitioner. DATE OF SERVICE: 06/21/17 SUBJECTIVE: This 72 year old WHITE/ F was hospitalized 06/17/17. The patient is lying in bed, alert. No acute shortness of breath. Labs have improved. She states she is ready to go home. REVIEW OF SYSTEMS: CONSTITUTIONAL: No night sweats. No fatigue, malaise, lethargy. No fever or chills. HEENT: Eyes: No visual changes. No eye pain. No eye discharge. ENT: No runny nose. No epistaxis. No sinus pain. No odynophagia. No congestion. RESPIRATORY: Cough. No congestion. No hemoptysis. No shortness of breath. CARDIOVASCULAR: No angina symptoms. No CHF symptoms. No atypical chest pain for CAD. No palpitations. No orthopnea.. GASTROINTESTINAL: No abdominal pain. No nausea or vomiting. No diarrhea or constipation. No hematemesis. No hematochezia. GENITOURINARY: No urgency. No frequency. No dysuria. No hematuria. No obstructive symptoms. No discharge. No pain. No significant abnormal bleeding. MUSCULOSKELETAL: No musculoskeletal pain; no joint swelling. NEUROLOGICAL: Awake, alert, oriented to time, place and person. No headache. No neck pain. No syncope. No seizures. No dizziness. PSYCHIATRIC: Not anxious. No depression. No suicidal thoughts. No homicidal thoughts. SKIN: No rash. No lesions. No wounds. ENDOCRINE: No unexplained weight loss. No weight gain. HEMATOLOGIC/LYMPHATIC: No anemia. No purpura. No petechiae. No prolonged or excessive bleeding. No palpable lymph nodes. PHYSICAL EXAMINATION: GENERAL: The patient is awake, alert and oriented, lying in bed in no distress. VITAL SIGNS: Temperature 97.9 F, Pulse 71, Respiratory Rate 16, BP 118/56, Pulse Ox 99% HEENT: Head normocephalic, atraumatic. Eyes: Extraocular muscles are intact. Pupils are equal, round and reactive to light and accommodation. Ears: No lesions. Nose appeared normal. Throat: No exudate or erythema. NECK: Supple. No JVD, no carotid bruit. No lymphadenopathy or thyromegaly. LUNGS: Diminished breath sounds bilaterally. Clear to auscultation. Percussion note normal. Chest symmetrical. HEART: S1, S2, no S3. No murmurs. No cyanosis or clubbing. No ascites. Pulses: Dorsalis pedis and posterior tibial pulses +1 to +2 both sides. ABDOMEN: Soft. Non-tender. Bowel sounds active. No CVA tenderness. No mass felt. EXTREMITIES: No edema. Full range of motion of all extremities, equal. NEUROLOGIC: No focal deficit. Cranial nerves II through XII are grossly intact. No headache, no double vision or headache. SKIN: Not dry. Intact. Turgor-normal. LYMPHATIC: No palpable lymph nodes/no lymphedema. MUSCULOSKELETAL: Normal joints with no swelling. Muscle tone is normal. LAB REVIEW: 06/21/17 05:00 06/21/17 05:00 06/21/17 05:00: Sodium 136, Potassium 4.2, Chloride 96 L, Carbon Dioxide 30, Anion Gap 14.2, BUN 45 H, Creatinine 1.97 H D, Estimated GFR (MDRD) 25.00, BUN/ Creatinine Ratio 22.84, Glucose 119 H, Calcium 9.3, Total Bilirubin 0.3, AST 14 L, ALT 18, Alkaline Phosphatase 38 L, Total Protein 4.9 L, Albumin 3.0 L, Globulin 1.9, Albumin/Globulin Ratio 1.58 06/21/17 05:00: WBC 12.22 H, RBC 3.13 L, Hgb 9.5 L, Hct 27.2 L, MCV 86.9, MCH 30.4, MCHC 34.9, RDW Coeff of Tr 14.8, Plt Count 133 L, Immature Gran % (Auto) 1.9, Neut % (Auto) 71.6, Lymph % (Auto) 16.0, [place] % (Auto) 10.4 H, Eos % (Auto ) 0.0, Baso % (Auto) 0.1, Immature Gran # (Auto) 0.2, Neut # (Auto) 8.8 H, Lymph # (Auto) 2.0, [place] # (Auto) 1.3, Eos # (Auto) 0.0, Baso # (Auto) 0.0 ASSESSMENT: 1. Chronic respiratory failure 2. Acute COPD exacerbation 3. Anxiety 4. Chronic kidney disease PLAN: 1. Xopenex 2. Prednisone 10 mg daily for 5 days, then 5 mg daily for 5 days 3. D/C Home 4. Take Xanax as scheduled at home Plan and coordination of the patient's care discussed in the presence of Deputy Insurance Commissioner and nurse. CONDITION: Stable SCRIBED BY: KENISHA FRY Video Game Script Writer scribed while in presence of service performed by Dr. Brito/Rupal Perez APRN on 06/21/17 ([id number])
--- NOTE | 2017-06-21 13:49 | CM.DICTOOL ---
ADMISSION: 06/17/17 14:31 DISCHARGE: 06/21/17 DATE OF SERVICE: 06/21/17 FINAL DIAGNOSIS COPD EXACERBATION ANXIETY/PANIC EPISODES CHRONIC RESPIRATORY FAILURE (OXYGEN DEPENDENT) COPD PULMONARY NODULE, [address] HYPERTENSION CAD S/P STENT APPLICATION CAROTID OCCLUSIVE DISEASE DYSLIPIDEMIA ANEMIA PERIPHERAL ARTERIAL DISEASE NEUROPATHY VASCULAR DEMENTIA DJD SPINE OSTEOARTHRITIS DEPRESSION ABDOMINAL AORTIC ANEURYSM, 1997 HYSTERECTOMY, 1989 AORTOILIAC BYPASS CHRONIC SMOKER LAST VITALS Temp Pulse Resp BP Pulse Ox 97.9 F 71 16 118/56 L 99 06/21/17 05:48 06/21/17 05:48 06/21/17 05:48 06/21/17 05:48 06/21/17 05:48 ACTIVE HOME MEDICATIONS Alprazolam (Xanax) 0.25 mg PO TID PRN ANXIETY, WHEEZING Last Admin: 06/20/17 20:16 Dose: 0.25 mg Amlodipine Besylate (Norvasc) 5 mg PO BID [facility] Last Admin: 06/20/17 20:16 Dose: 5 mg Aspirin (Aspirin Chewable) 81 mg PO DAILYWM [facility] Last Admin: 06/20/17 09:08 Dose: 81 mg Carvedilol (Coreg) 25 mg PO BIDWM [facility] Last Admin: 06/20/17 17:39 Dose: 25 mg Cilostazol (Pletal) 100 mg PO BIDAC [facility] Last Admin: 06/21/17 05:51 Dose: 100 mg Clonidine (Catapres) 0.1 mg PO BID [facility] Last Admin: 06/20/17 20:16 Dose: 0.1 mg Clopidogrel Bisulfate (Plavix) 75 mg PO DAILY [facility] Last Admin: 06/20/17 09:11 Dose: 75 mg Duloxetine HCl (Cymbalta) 60 mg PO DAILY [facility] Last Admin: 06/20/17 09:10 Dose: 60 mg Escitalopram Oxalate (Lexapro) 20 mg PO DAILY [facility] Last Admin: 06/20/17 09:11 Dose: 20 mg Ferrous Sulfate (Ferrous Sulfate) 324 mg PO BID [facility] Last Admin: 06/20/17 20:16 Dose: 324 mg Hydrocodone Bitart/Acetaminophen ([place] 10-325) 1 tab PO TID PRN PRN Reason: pain Last Admin: 06/20/17 20:16 Dose: 1 tab Losartan Potassium (Cozaar) 100 mg PO DAILY [facility] Last Admin: 06/20/17 09:12 Dose: 100 mg Cyanocobalamin (Vitamin B-12) [Vitamin B-12] 3,000 mcg PO DAILY [facility] Last Admin: 06/20/17 09:13 Dose: Not Given Fluticasone/Umeclidin/Vilanter [Trelegy Ellipta 100-62.5-25] 1 each IH BID [facility] Last Admin: 06/20/17 20:21 Dose: 1 each Potassium Chloride (Micro-K Cap) 10 meq PO DAILYWM [facility] Last Admin: 06/20/17 09:08 Dose: 10 meq Pregabalin (Lyrica) 200 mg PO BID [facility] Last Admin: 06/20/17 20:15 Dose: 200 mg Roflumilast (Daliresp) 500 mcg PO DAILY [facility] Last Admin: 06/20/17 09:12 Dose: 500 mcg Rosuvastatin Calcium (Crestor) 20 mg PO BEDTIME [facility] Last Admin: 06/20/17 20:16 Dose: 20 mg Triamterene/HCTZ (Dyazide) 1 cap PO DAILY [facility] Last Admin: 06/20/17 09:12 Dose: 1 cap ALLERGIES No Known Allergies Allergy (Verified 05/24/17 16:29) NEW PRESCRIPTIONS: XOPENEX NEBS, TAKE ONE NEB TREATMENT UP TO FOUR TIMES DAILY IF NEEDED (PRN) FOR WHEEZING PREDNISONE 5 MG, TAKE TWO TABS (10 MG) BY MOUTH DAILY FOR 5 DAYS, THEN ONE TAB ( 5 MG) BY MOUTH DAILY FOR 5 DAYS. TAKE THIS MEDICATION WITH FOOD PLEASE NOTE YOUR XANAX 0.25 MG IS ORDERED ONE TABLET BY MOUTH THREE TIMES DAILY NEEDED FOR ANXIETY SMOKING: CURRENT EVERY DAY SMOKER THE PATIENT HAS BEEN PROVIDED SMOKING CESSATION EDUCATION. SHE HAS BEEN MADE AWARE OF THE NEGATIVE EFFECTS TOBACCO PRODUCES FOR HER CARDIOPULMONARY/ CARDIOVASCULAR HEALTH. SHE HAS NOT VERBALIZED HER INTENTION TO STOP SMOKING. HOWEVER, SHE HAS CUT DOWN THE FREQUENCY OF SMOKING. SHE WOULD BENEFIT FROM CONTINUED ENCOURAGEMENT FOR COMPLETE CESSATION. DISEASE SPECIFIC EDUCATION: COPD ANXIETY HOME MEDICATIONS NEW PRESCRIPTIONS ADVERSE EFFECTS POSSIBLE WITH USP STEROID USE FOLLOW UP LAB REVIEW: 06/21/17 05:00 06/21/17 05:00 06/21/17 05:00: Sodium 136, Potassium 4.2, Chloride 96 L, Carbon Dioxide 30, Anion Gap 14.2, BUN 45 H, Creatinine 1.97 H D, Estimated GFR (MDRD) 25.00, BUN/ Creatinine Ratio 22.84, Glucose 119 H, Calcium 9.3, Total Bilirubin 0.3, AST 14 L, ALT 18, Alkaline Phosphatase 38 L, Total Protein 4.9 L, Albumin 3.0 L, Globulin 1.9, Albumin/Globulin Ratio 1.58 06/21/17 05:00: WBC 12.22 H, RBC 3.13 L, Hgb 9.5 L, Hct 27.2 L, MCV 86.9, MCH 30.4, MCHC 34.9, RDW Coeff of Tr 14.8, Plt Count 133 L, Immature Gran % (Auto) 1.9, Neut % (Auto) 71.6, Lymph % (Auto) 16.0, [place] % (Auto) 10.4 H, Eos % (Auto ) 0.0, Baso % (Auto) 0.1, Immature Gran # (Auto) 0.2, Neut # (Auto) 8.8 H, Lymph # (Auto) 2.0, [place] # (Auto) 1.3, Eos # (Auto) 0.0, Baso # (Auto) 0.0 PLAN: DISCHARGE HOME TODAY RETURN TO SEE DR. BRITO ON 06/28/17 RESUME [facility], PT/OT [phone] OR [phone] RESUME YOUR HOME MEDICATIONS PLEASE NOTE YOUR XANAX 0.25 MG, ONE TABLET BY MOUTH THREE TIMES DAILY NEEDED FOR ANXIETY NEW PRESCRIPTIONS XOPENEX NEBS, TAKE ONE NEB TREATMENT UP TO FOUR TIMES DAILY IF NEEDED (PRN) PREDNISONE 5 MG, TAKE TWO TABS (10 MG) BY MOUTH DAILY FOR 5 DAYS, THEN ONE TAB ( 5 MG) BY MOUTH DAILY FOR 5 DAYS. TAKE THIS MEDICATION WITH FOOD ACTIVITY GET PLENTY OF REST AT HOME. GRADUALLY INCREASE YOUR ACTIVITY LEVEL ACCORDING TO YOUR TOLERATION DIET HEALTHY HEART SUMMARY THE PATIENT CURRENTLY RESIDES AT HOME WITH HER SPOUSE. SHE HAS BEEN INDEPENDENT WITH ADL'S. HOWEVER, WITH EXACERBATION OF HER WORSENING COPD, SHE HAS BEGUN TO REQUIRE ASSISTANCE WITH FEW ADL'S. AT HOME SHE HAS OXYGEN FOR CONTINUOUS USE, NEBULIZER, ROLLING WALKER, SHOWER CHAIR AND AN AUTOMATIC BLOOD PRESSURE MONITOR. SHE HAS BEEN USING [facility]/ OCCUPATIONAL THERAPY. WE WILL REQUEST REFERRAL FOR NURSING SERVICES WITH RESUMPTION OF THE PT/OT. SHE DESIRES TO RETURN HOME AT DISCHARGE. THE PATIENT'S SKIN TURGOR IS INTACT. SHE HAS NO DECUBITUS ULCERS BUT HAS MULTIPLE AREAS OF BRUISING IN VARIOUS STAGES OF HEALING. HER HYDRATION AND NUTRITION STATUS ARE IMPROVED. SHE IS AWARE AND AGREEABLE FOR TODAY'S DISCHARGE PLANS. CURRENT CODE STATUS DO NOT RESUSCITATE MILDRED TRAN APRN SIDDHARTHA BRITO M.D.
--- NOTE | 2017-06-21 14:01 | HP ---
DATE OF SERVICE: 06/17/17 HISTORY OF PRESENT ILLNESS: 72-year-old white female came to the emergency room with shortness of air. The other thing that was noted was the patient's anxiety. The patient called the office in the morning stating that she needs to be in the hospital, she is not getting enough air. The patient, in the emergency room was noted by the ER attending that she was very anxious. PAST MEDICAL HISTORY: History of peripheral arterial disease Severe chronic lung disease Smoking - the patient is still smoking Hypertension Dyslipidemia Anxiety with depression PAST SURGICAL HISTORY: Hysterectomy Aortoiliac BYPASS REVIEW OF SYSTEMS: CONSTITUTIONAL: Positive for weakness and fatigue. No night sweats. No malaise , lethargy. No fever or chills. HEENT: Eyes: No visual changes. No eye pain. No eye discharge. ENT: No runny nose. No epistaxis. No sinus pain. No sore throat. No odynophagia. No ear pain. No congestion. RESPIRATORY: Mild cough as usual with whitish sputum production. No hemoptysis. Shortness of breath. CARDIOVASCULAR: No angina symptoms. No CHF symptoms. No atypical chest pain for CAD. No palpitations. No orthopnea. GASTROINTESTINAL: Good appetite. No abdominal pain. No nausea or vomiting. No diarrhea or constipation. No hematemesis. No hematochezia. GENITOURINARY: No urgency. No frequency. No dysuria. No hematuria. No obstructive symptoms. No discharge. No pain. No significant abnormal bleeding. MUSCULOSKELETAL: Generalized aches and pains as usual. NEUROLOGICAL: No headache. No neck pain. No syncope. No seizures. No dizziness. PSYCHIATRIC: The patient seems to be very anxious, mildly depressed. No suicidal or homicidal tendacies. SKIN: No rash. No lesions. No wounds. ENDOCRINE: No unexplained weight loss. No weight gain. HEMATOLOGIC/LYMPHATIC: No anemia. No purpura. No petechiae. No prolonged or excessive bleeding. No palpable lymph nodes. PERSONAL/FAMILY/SOCIAL HISTORY: The patient is , lives with , smokes. No alcohol abuse. Does all activity of daily living. She is on home oxygen. Multiple hospitalizations in the past 6 months, at least 5 to 6 of them for the same problem. MEDICATIONS: Pletal 100 mg p.o. b.i.d. Daliresp 500 mcg p.o. daily Cymbalta 60 mg p.o. daily Crestor 20 mg p.o. daily Coreg 25 mg p.o. twice a day Clonidine 0.1 mg twice a day. Lexapro 20 mg p.o. daily Microbid 10 mEq p.o. daily Losartan 100 mg p.o. daily Xanax 0.25 mg p.o. t.i.d. Amlodipine 5 mg p.o. twice a day Dyazide 1 capsule p.o. daily Aspirin 381 p.o. daily Plavix 75 mg p.o. daily Ferrous Sulfate 325 twice a day Hydrocodone 10/325 t.i.d. p.r.n. given by Pain Management Prednisone 10 mg daily Lyrica 200 mg p.o. twice a day ALLERGIES: NKDA PHYSICAL EXAMINATION: GENERAL: The patient is oriented to time, place and person, not in distress. VITAL SIGNS: Temperature 97.6, pulse 110/min, respiratory rate 25, BP 189/90, pulse ox 95% on 2L. HEENT: Head normocephalic, atraumatic. Eyes: Extraocular muscles are intact. Pupils are equal, round and reactive to light and accommodation. Ears: No lesions. Nose appeared normal. Throat: No exudate or erythema. NECK: Supple. No JVD, no carotid bruit. No lymphadenopathy or thyromegaly. LUNGS: Decreased breath sounds, good air entry with mild expiratory wheeze. Percussion note normal. Chest symmetrical. HEART: PMI not palpable. S1, S2, no S3. No murmurs. No cyanosis or clubbing. No ascites. Pulses: Dorsalis pedis and posterior tibial pulses feeble bilaterally. ABDOMEN: Soft. Nontender. Bowel sounds active. No CVA tenderness. No mass felt. EXTREMITIES: No pedal edema. Full range of motion of all extremities, equal. NEUROLOGIC: No focal deficit. Cranial nerves II through XII are grossly intact. No headache, no double vision or headache. SKIN: Not dry. Intact. Turgor - normal. LYMPHATIC: No palpable lymph nodes/no lymphedema. MUSCULOSKELETAL: Normal joints with no swelling. Muscle tone is normal. LABS: Hemoglobin 13, hematocrit 37, WBC 12,000, normal differential. Creatinine 0.7, BUN 14, potassium 3.5, procalcitonin normal. Influenza A and B negative. ABG p02 70, pc02 47, pH 7.5 with 95% saturation on 2L of oxygen. Lactic acid normal. ASSESSMENT: 1. RESPIRATORY INSUFFICIENCY WITH CHRONIC LUNG DISEASE 2. ANXIETY SYNDROME WITH MILD DEPRESSION 3. SEVERE CHRONIC LUNG DISEASE WITH SMOKING 4. PERIPHERAL ARTERIAL DISEASE 5. HYPERTENSION 6. DYSLIPIDEMIA 7. GENERALIZED OSTEOARTHRITIS PLAN: 1. The patient was given Xanax 0.5 p.o. She will be on 0.25 t.i.d. The patient is to continue on steroids IV, also neb treatment with Xopenex q.6. Telemetry. The patient's cardiovascular status is stable. Will continue patient on the rest of the medications she is on. I talked to the and the patient and explained to them that this is more like a panic type of disorder. The patient had received the call from insurance nurse and she advised patient to get to hematology/oncologist which was very stupid of her to say that because the patient's hemoglobin has been 13, hematocrit 37. She may have some anemia in the past for which she was given blood transfusion but she probably needs to followup with her sink cutter. She has history of refusing colonoscopy or EGD in the past. Also she asked her to up her medication for depression. The patient is already on Cymbalta 60 mg and Lexapro 20 mg. Both of them are a hefty dose. The patient needs to stop feeling sorry for herself, get up and attend pulmonary rehab. Advised to quit smoking and improve the lifetyle. TIME SPENT: More than 70 minutes. MTDD
--- NOTE | 2017-06-22 09:37 | PN ---
CODING FOR BILLING 06/17/17 LEVEL 5 06/18/17 INTERMEDIATE 06/19/17 INTERMEDIATE 06/20/17 DISCHARGE MTDD
--- NOTE | 2017-06-28 14:45 | PN ---
DATE OF SERVICE: 06/18/17 SUBJECTIVE: The patient was seen and examined with the nurse practitioner. The patient's condition has improved. She is looking a lot better than before. On 2L, oxygen saturation is more than 95% all the time. Her appetite has improved. REVIEW OF SYSTEMS: CONSTITUTIONAL: No night sweats. No fatigue, malaise, lethargy. No fever or chills. HEENT: Eyes: No visual changes. No eye pain. No eye discharge. ENT: No runny nose. No epistaxis. No sinus pain. No sore throat. No odynophagia. No congestion. RESPIRATORY: No cough, no congestion. No hemoptysis. No shortness of breath. CARDIOVASCULAR: No angina symptoms. No CHF symptoms. No atypical chest pain for CAD. No palpitations. No orthopnea. GASTROINTESTINAL: No abdominal pain. No nausea or vomiting. No diarrhea or constipation. No hematemesis. No hematochezia. GENITOURINARY: No urgency. No frequency. No dysuria. No hematuria. No obstructive symptoms. No discharge. No pain. No significant abnormal bleeding. MUSCULOSKELETAL: No musculoskeletal pain; no joint swelling. NEUROLOGICAL: No headache. No neck pain. No syncope. No seizures. No dizziness. PSYCHIATRIC: Not anxious. No depression. No suicidal thoughts. No homicidal thoughts. SKIN: No rash. No lesions. No wounds. ENDOCRINE: No unexplained weight loss. No weight gain. HEMATOLOGIC/LYMPHATIC: No anemia. No purpura. No petechiae. No prolonged or excessive bleeding. No palpable lymph nodes. PHYSICAL EXAMINATION: HEENT: Head normocephalic, atraumatic. Eyes: Extraocular muscles are intact. Pupils are equal, round and reactive to light and accommodation. Ears: No lesions. Nose appeared normal. Throat: No exudate or erythema. NECK: Supple. No JVD, no carotid bruit. No lymphadenopathy or thyromegaly. LUNGS: Clear to auscultation. Percussion note normal. Chest symmetrical. HEART: S1, S2, no S3. No murmurs. No cyanosis or clubbing. No ascites. Pulses: Dorsalis pedis and posterior tibial pulses +1 to +2 both sides. ABDOMEN: Soft. Nontender. Bowel sounds active. No CVA tenderness. No mass felt. EXTREMITIES: No edema. Full range of motion of all extremities, equal. NEUROLOGIC: No focal deficit. Cranial nerves II through XII are grossly intact. No headache, no double vision or headache. SKIN: Not dry. Intact. Turgor - normal. LYMPHATIC: No palpable lymph nodes/no lymphedema. MUSCULOSKELETAL: Normal joints with no swelling. Muscle tone is normal. The patient's condition is improving. Her respiratory status has improved. Since depression seems to be under control I will try to talk to her at length about her panic disorder. The patient has no suicidal or homocidal tendancy. The patient was seen and examined with the nurse practitioner. TIME SPENT: More than 30 minutes. Plan and coordination of the patient's care discussed in the presence of nurse. KEVIN
--- NOTE | 2017-06-28 14:50 | PN ---
DATE OF SERVICE: 06/19/17 SUBJECTIVE: 72-year-old white female hospitalized with acute bronchitis, COPD. The patient has panic disorder with shortness of breath. PHYSICAL EXAMINATION: VITAL SIGNS: Temperature 98, pulse 80, respiratory rate 18, BP 132/64, pulse ox 98%. HEENT: Head normocephalic, atraumatic. Eyes: Extraocular muscles are intact. Pupils are equal, round and reactive to light and accommodation. Ears: No lesions. Nose appeared normal. Throat: No exudate or erythema. NECK: Supple. No JVD, no carotid bruit. No lymphadenopathy or thyromegaly. LUNGS: Decreased breath sounds but clear to auscultation. Percussion note normal. Chest symmetrical. HEART: S1, S2, no S3. No murmurs. No cyanosis or clubbing. No ascites. Pulses: Dorsalis pedis and posterior tibial pulses +1 to +2 both sides. ABDOMEN: Soft. Nontender. Bowel sounds active. No CVA tenderness. No mass felt. EXTREMITIES: No edema. Full range of motion of all extremities, equal. NEUROLOGIC: No focal deficit. Cranial nerves II through XII are grossly intact. No headache, no double vision or headache. SKIN: Not dry. Intact. Turgor - normal. LYMPHATIC: No palpable lymph nodes/no lymphedema. MUSCULOSKELETAL: Normal joints with no swelling. Muscle tone is normal. ASSESSMENT: 1. ACUTE BRONCHITIS RESOLVING 2. SEVERE PERIPHERAL ARTERIAL DISEASE 3. COPD 4. HISTORY OF SMOKING, STILL SMOKES 5. THE PATIENT'S PANIC PROBLEM SEEMS TO BE UNDER CONTROL, SHE IS MORE CALM 6. RESPIRATORY STATUS CLINICALLY HAS IMPROVED REMARKABLY; OXYGEN SATURATION 98 % WITH TWO LITERS. SHE SAYS SHE IS FEELING A LOT BETTER, NOT SHORT OF BREATH LIKE SHE USE TO BE. CONDITION IS IMPROVING. STRONGLY ADVISED TO JOIN PULMONARY REHAB. INCREASE ACTIVTY. CONDITION: STABLE TIME SPENT: More than 30 minutes. Plan and coordination of the patient's care discussed in the presence of nurse. KEVIN
--- NOTE | 2017-06-29 08:58 | PN ---
DATE OF SERVICE: 06/20/17 SUBJECTIVE: 72-year-old white female hospitalized with acute bronchitis, respiratory failure. The patient had panic type of disorder. She seems to be very well maintained and has no panic problems. She is feeling better. REVIEW OF SYSTEMS: CONSTITUTIONAL: No night sweats. No fatigue, malaise, lethargy. No fever or chills. HEENT: Eyes: No visual changes. No eye pain. No eye discharge. ENT: No runny nose. No epistaxis. No sinus pain. No sore throat. No odynophagia. No congestion. RESPIRATORY: No cough, no congestion. No hemoptysis. Shortness of breath on exertion as usual. CARDIOVASCULAR: No angina symptoms. No CHF symptoms. No atypical chest pain for CAD. No palpitations. No orthopnea. GASTROINTESTINAL: No abdominal pain. No nausea or vomiting. No diarrhea or constipation. No hematemesis. No hematochezia. GENITOURINARY: No urgency. No frequency. No dysuria. No hematuria. No obstructive symptoms. No discharge. No pain. No significant abnormal bleeding. MUSCULOSKELETAL: No musculoskeletal pain; no joint swelling. NEUROLOGICAL: No headache. No neck pain. No syncope. No seizures. No dizziness. PSYCHIATRIC: Not anxious. No depression. No suicidal or homicidal tendancy. SKIN: No rash. No lesions. No wounds. ENDOCRINE: No unexplained weight loss. No weight gain. HEMATOLOGIC/LYMPHATIC: No anemia. No purpura. No petechiae. No prolonged or excessive bleeding. No palpable lymph nodes. PHYSICAL EXAMINATION: GENERAL: The patient is oriented to time, place and person. VITAL SIGNS: Temperature 97.7, pulse 76, respiratory rate 14, BP 135/67, pulse ox 96%. HEENT: Head normocephalic, atraumatic. Eyes: Extraocular muscles are intact. Pupils are equal, round and reactive to light and accommodation. Ears: No lesions. Nose appeared normal. Throat: No exudate or erythema. NECK: Supple. No JVD, no carotid bruit. No lymphadenopathy or thyromegaly. LUNGS: Decreased breath sounds but clear to auscultation. Percussion note normal. Chest symmetrical. HEART: S1, S2, no S3. No murmurs. No cyanosis or clubbing. No ascites. Pulses: Dorsalis pedis and posterior tibial pulses +1 to +2 both sides. ABDOMEN: Soft. Nontender. Bowel sounds active. No CVA tenderness. No mass felt. EXTREMITIES: No edema. Full range of motion of all extremities, equal. NEUROLOGIC: No focal deficit. Cranial nerves II through XII are grossly intact. No headache, no double vision or headache. SKIN: Not dry. Intact. Turgor - normal. LYMPHATIC: No palpable lymph nodes/no lymphedema. MUSCULOSKELETAL: Normal joints with no swelling. Muscle tone is normal. LABS: Hemoglobin 10.2, hematocrit 28, WBC 11,600, normal differential. Creatinine 0.8 , BUN 31, potassium 3.8. ASSESSMENT: 1. RESPIRATORY FAILURE, HYPOXEMIA SEEMS TO BE UNDER CONTROL 2. PANIC DISORDER SEEMS TO BE UNDER CONTROL 3. PERIPHERAL VASCULAR DISEASE 4. COPD WITH HISTORY OF SMOKING. PLAN: 1. COUNSELING FOR SMOKING DONE 2. ADVISED TO JOIN PULMONARY REHAB 3. ADVISED TO JOIN EXERCISE AND PHYSICAL ACTIVITY TO COMBAT THE PANIC CONDITION: Stable TIME SPENT: More than 30 minutes. Plan and coordination of the patient's care discussed in the presence of nurse. KEVIN
--- NOTE | 2017-06-29 09:03 | PN ---
DATE OF SERVICE: 06/21/17 SUBJECTIVE: The patient was hospitalized with respiratory failure and also panic type of disorder. The patient's condition has improved remarkably. She feels a lot better. She is going to go home with Xopenex, nebs treatment. PHYSICAL EXAMINATION: HEENT: Head normocephalic, atraumatic. Eyes: Extraocular muscles are intact. Pupils are equal, round and reactive to light and accommodation. Ears: No lesions. Nose appeared normal. Throat: No exudate or erythema. NECK: Supple. No JVD, no carotid bruit. No lymphadenopathy or thyromegaly. LUNGS: Decreased breath sounds but clear to auscultation. Percussion note normal. Chest symmetrical. HEART: S1, S2, no S3. No murmurs. No cyanosis or clubbing. No ascites. Pulses: Dorsalis pedis and posterior tibial pulses +1 to +2 both sides. ABDOMEN: Soft. Nontender. Bowel sounds active. No CVA tenderness. No mass felt. EXTREMITIES: No edema. Full range of motion of all extremities, equal. NEUROLOGIC: No focal deficit. Cranial nerves II through XII are grossly intact. No headache, no double vision or headache. PSYCHIATRIC: No suicidal or homicidal tendencies. SKIN: Not dry. Intact. Turgor - normal. LYMPHATIC: No palpable lymph nodes/no lymphedema. MUSCULOSKELETAL: Normal joints with no swelling. Muscle tone is normal. PLAN: 1. The patient has no suicidal or homicidal tendancies. 2. She is to join pulmonary rehab. 3. She is advised to walk at least 1/2 mile a day, 6 days a week. 4. The patient has continued to smoke, counseling for smoking done. CONDITION: Stable. PROGNOSIS: Poor. The patient was seen and examined with the nurse practitioner. TIME SPENT: More than 30 minutes. Plan and coordination of the patient's care discussed in the presence of nurse. KEVIN
--- NOTE | 2017-07-09 14:31 | DS ---
DATE OF SERVICE: 06/21/17 FINAL DIAGNOSIS: 1. COPD exacerbation 2. Anxiety/Panic episodes 3. Chronic respiratory failure (oxygen Dependent) 4. COPD 5. Pulmonary nodule, 4mm per CT 6. Hypertension 7. CAD status post stent application 8. Carotid occlusive disease 9. 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 DISCHARGE INSTRUCTIONS: Discharge home today. Return to see Dr. Dawson on 06/28/17. Resume [facility] for nursing services, PT/OT. Resume home medications. Please note Xanax 0.25mg, one tablet by mouth three times daily as needed for anxiety. MEDICATIONS AT DISCHARGE: Xanax 0.25mg PO three times a day PRN Norvasc 5mg PO twice d ay Aspirin chewable 81mg PO daily Coreg 25mg PO twice d ay Pletal 100mg PO twice a day Catapres 0.1mg PO twice a day Plavix 75mg PO daily Cymbalta 60mg PO daily Lexapro 20mg PO daily Ferrous Sulfate 324mg PO twice a day [place] 10-325mg PO tablet three times a day PRN Cozaar 100mg Po daily Vitamin B12 3,000mcg PO daily Trelegy Ellipta 100-62.5-25 one each IH twice a day Micro-K cap 10meq PO daily Lyrica 200mg PO twice a day Daliresp 500mcg PO daily Crestor 20mg PO bedtime Dyazide 1capsule PO daily ALLERGIES: No known allergies NEW PRESCRIPTIONS: Xopenex NEBS, take one NEB treatment up to four times daily if needed (PRN) for wheezing. Prednisone 5mg, take two tablets (10mg) by mouth daily for 5 days, then one tablet (5mg) by mouth daily for 5 days. Take this medication with food. Please not Xanax 0.25mg is ordered as one tablet by mouth three times daily as needed for anxiety. DIET INSTRUCTIONS: [facility] ACTIVITY: Get plenty of rest at home. Gradually increase activity level according to toleration. SMOKING: Current everyday smoker. The patient has been provided smoking cessation education. She has been made aware of the negative effects of tobacco produces for her cardiopulmonary/ Cardiovascular health. She has not verbalized her intention to stop smoking. However, She has cut down the frequency of smoking. She would benefit for continued encouragement for complete cessation. DISEASE SPECIFIC EDUCATION: COPD Anxiety Home medications New Prescription Adverse effects possible with care home steroid use Followup HOSPITAL COURSE: This is a 72 year old white female with a long history of severe COPD and chronic respiratory failure. She presented to the emergency room complaining of shortness of breath. Her ABG's were surprisingly normal for her however her Potassium was slightly low as was her hgb which has occurred in her history. Chest x-ray revealed that she just had underlining COPD, there was no pneumonia. She has had recurrent pneumonia in the past. She remained on three liters of oxygen via nasal cannula. She was started on Solu-Medrol 125mg IV Q 8 hours as well as Rocephin 1 gram IV daily. Rocephin was discontinued within 24 hours. Her Potassium normalized within 24 hours after admission. It is likely that her acute shortness of breath was related to anxiety. She has a long history of anxiety and hypertension. She has a prescription for Xanax 0.25mg three times a day and she states that she has only been taking them twice a day. It is though that her arriving to the emergency room was brought on by brief panic attack which made her feel short of breath. Her vital signs have remained stable. She does have a history of chronic kidney disease, her kidney function is slightly elevated at discharge with BUN of 45 and creatinine of 1.97. Her hgb is normalized at 9.5 which is her usual. WBC is 12,000, sodium 136 , potassium 4.2. She does state that she feels that the Xopenex NEB treatments helps her more than the DUO NEBS so we will send her home with a prescription of Xopenex to use with her nebulizer machine. Smoking cessation information has been provided to her. Again her shortness of breath was a short episode from her normal. She was not in acute respiratory failure after giving her Xanax we have controlled her anxiety being giving her Xanax scheduled three times a day 0.25mg. She has not been overly sedated and she has remained calm. She will continue her Lexapro 20mg. We discussed anxiety, stress management techniques and we have also encouraged her to try pulmonary rehab, this has been discussed at length with her in the past. Her blood pressure has remained normal during this hospitalization as well as her other vital signs. We will discharge her home in stable condition with Prednisone 10mg daily for the next 5 days and then 5mg daily times 5 days. She has a followup appointment with Dr. Skinner her regulatory consultant in the next couple weeks and she will see him then. TIME SPENT: More than 60 minutes. KEVIN
== END 2017-06-21 12:40 | disposition home or self-care (01) | DRG 191 ==
LOC: ED 12:45 → MEDSURG B 14:31
PROVIDERS: ADMIT Internal Medicine; ATTEND Internal Medicine
DX: J44.1 Chronic obstructive pulmonary disease with (acute) exacerbation (principal); J96.10 Chronic respiratory failure, unspecified whether with hypoxia or hypercapnia; F41.0 Panic disorder [episodic paroxysmal anxiety]; R06.02 Shortness of breath; F41.9 Anxiety disorder, unspecified; I10 Essential (primary) hypertension; R91.1 Solitary pulmonary nodule; I25.10 Atherosclerotic heart disease of native coronary artery without angina pectoris; I65.29 Occlusion and stenosis of unspecified carotid artery; E78.5 Hyperlipidemia, unspecified; D64.9 Anemia, unspecified; I73.9 Peripheral vascular disease, unspecified; F01.50 Vascular dementia, unspecified severity, without behavioral disturbance, psychotic disturbance, mood disturbance, and anxiety; N18.9 Chronic kidney disease, unspecified; G62.9 Polyneuropathy, unspecified; M47.9 Spondylosis, unspecified; M19.90 Unspecified osteoarthritis, unspecified site; F32.9 Major depressive disorder, single episode, unspecified; I71.4 Abdominal aortic aneurysm, without rupture; F17.210 Nicotine dependence, cigarettes, uncomplicated; Z95.1 Presence of aortocoronary bypass graft; Z79.02 Long term (current) use of antithrombotics/antiplatelets; Z79.899 Other long term (current) drug therapy; Z95.5 Presence of coronary angioplasty implant and graft; Z99.81 Dependence on supplemental oxygen
CPT/HCPCS: 36415; 80053; 82550; 82803; 83605; 84145; 84484; 85025; 87040; 87081; 87502; 87651; 93005; 93010; 94640; 96365; 96374; 96375; 99284; 99285

== ENCOUNTER 2017-07-19 09:09 | Outpatient (RCR) ==
[2017-08-12 13:21] VITALS: BP 138/54
== END 2017-08-16 23:59 ==
LOC: PUL.REHAB 09:09
PROVIDERS: ATTEND Internal Medicine
DX: J44.9 Chronic obstructive pulmonary disease, unspecified (principal)

== ENCOUNTER 2017-08-17 08:25 | Outpatient (RCR) ==
[2017-09-16 13:40] VITALS: BP 138/60
== END 2017-09-16 23:59 ==
LOC: PUL.REHAB 08:25
PROVIDERS: ATTEND Internal Medicine
DX: J44.9 Chronic obstructive pulmonary disease, unspecified (principal)
CPT/HCPCS: 93797

== ENCOUNTER 2017-09-17 08:12 | Outpatient (RCR) ==
[2017-10-14 13:22] VITALS: BP 150/56
== END 2017-10-16 23:59 ==
LOC: PUL.REHAB 08:12
PROVIDERS: ATTEND Internal Medicine
DX: J44.9 Chronic obstructive pulmonary disease, unspecified (principal)

== ENCOUNTER 2017-10-18 07:20 | Outpatient (RCR) | END 2017-11-16 23:59 | LOC: PUL.REHAB 07:20 | PROVIDERS: ATTEND Internal Medicine | DX: J44.9 Chronic obstructive pulmonary disease, unspecified (principal) ==

== ENCOUNTER 2017-11-17 07:18 | Outpatient (RCR) ==
[2017-12-06 13:27] VITALS: BP 138/54
== END 2017-12-17 23:59 ==
LOC: PUL.REHAB 07:18
PROVIDERS: ATTEND Internal Medicine
DX: J44.9 Chronic obstructive pulmonary disease, unspecified (principal)

== ENCOUNTER 2017-12-19 16:52 | Inpatient (IN) ==
[2017-12-19] MEDS ORDERED: SOLU-MEDROL 125 MG IVP STA (16:54)
[2017-12-19] MEDS ORDERED: XOPENEX 1.25 MG NEB STA (16:55)
[2017-12-19] MEDS ORDERED: DUONEB NEB STA (16:55)
[2017-12-19] MEDS ORDERED: ROCEPHIN 1 GM in SODIUM CHLORIDE 50 ML IV STA (16:56)
[2017-12-19] MEDS ORDERED: XOPENEX 1.25 MG NEB ONE (16:56)
[2017-12-19] MEDS ORDERED: ROCEPHIN ONE (17:04)
--- NOTE | 2017-12-19 17:21 | ED.PDOC ---
General ED Provider: Dr. KATT NEWMAN-ER Chief Complaint: Shortness of Air Stated Complaint: martha been coughing up yellow stuff and sob for 2-3 days Time Seen by Physician: 16:55 Mode of Arrival: Wheelchair Information Source: Patient Exam Limitations: No limitations Primary Care Provider: SIDDHARTHA VILLA Nursing and Triage Documentation Reviewed and Agree: Yes Does patient meet sepsis criteria?: No System Inflammatory Response Syndrome: Not Applicable Sepsis Protocol: For patient's 13 years and over: Temp is 96.8 and below OR 101 and greater Pulse >90 BPM Resp >20/minute Acutely Altered Mental Status Are patient's symptoms suggestive of a new infection, such as: -Pneumonia -Skin, Soft Tissue -Endocarditis -UTI -Bone, Joint Infection -Implantable Device -Acute Abdominal Infection -Wound Infection -Meningitis -Blood Stream Catheter Infection -Unknown Respiratory Complaint Exam - Respiratory Complaint/Exam Onset/Duration: 2-3 days Symptoms Are: Still present Timing: Constant Initial Severity: Mild Current Severity: Moderate Location: Chest Character: Reports: Productive cough Aggravating: Reports: URI, Passive smoke exposure Alleviating: Reports: None Associated Signs and Symptoms: Reports: Rapid breathing, Wheezing, URI, Decreased oral intake. Denies: Dyspnea, Fever, Chills, Chest pain, Pleuritic chest pain, Hemoptysis, Dizziness, Calf pain, Calf swelling, Edema Related History: Reports: Similar episode History of Healthcare-Acquired Pneumonia: No Pulmonary Embolism Risk Factors: Smoking Cardiac Risk Factors: Reports: Smoking Pseudomonas Risk Factors: Reports: Chronic Lung Disease Tuberculosis Risk Factors: Reports: Chronic Resp. Faliure Status Asthmaticus Risk Factors: Reports: None Home Oxygen Use: Yes Recent Stress Test: No Recent Echo/LV Function: No Current Antibiotic Use: No Current Asthma Medication Use: No Respiratory Distress: Mild Inadequate Respiratory Effort: Yes Dysphagia Present: No Stridor Present: No JVD Present: No Accessory Muscle Use: No Retractions: Not Present Diminished Breath Sounds: No Sinus Tenderness: None Grunting Respirations: No Kussmaul Respirations: No Differential Diagnoses: COPD Exacerbation Non-Traumatic Chest Pain Syncope: EKG Performed Review of Systems - Review Of Systems Constitutional: Reports: No symptoms Eyes: Reports: No symptoms Ears, Nose, Mouth, Throat: Reports: No symptoms Respiratory: Reports: Cough, Short of air, Wheezing Cardiac: Reports: No symptoms GI: Reports: No symptoms : Reports: No symptoms Musculoskeletal: Reports: No symptoms Skin: Reports: No symptoms Neurological: Reports: No symptoms Endocrine: Reports: No symptoms Hematologic/Lymphatic: Reports: No symptoms All Other Systems: Reviewed and Negative Past Medical History - Past Medical History Previously Healthy: Yes Endocrine: Reports: Dyslipidemia Cardiovascular: Reports: CAD, Hypertension, Other (PAD) Respiratory: Reports: COPD Hematological: Reports: None Gastrointestinal: Reports: None Genitourinary: Reports: None Neuro/Psych: Reports: Anxiety, Depression Musculoskeletal: Reports: Arthritis, Back Pain, Joint Pain Cancer: Reports: None Last Menstrual Period: na - Surgical History General Surgical History: Reports: Hysterectomy, Stent Placement - Family History Family History: Reports: Unknown - Social History Smoking Status: Current some day smoker Hx Substance Use: No Alcohol Screening: None Lives: With family - Immunizations Tetanus Shot up to Date: Yes Physical Exam - Physical Exam Appearance: Well-appearing, No pain distress, Well-nourished Eyes: ARIEL, EOMI, Conjunctiva clear ENT: Ears normal Neck: Supple Respiratory: Rhonchi, Wheezes Cardiovascular: RRR, Pulses normal, No rub, No murmur GI/: Soft, Nontender, No masses, Bowel sounds normal, No Organomegaly Musculoskeletal: Normal strength, ROM intact, No edema, No calf tenderness Skin: Warm, Dry, Normal color Neurological: Sensation intact, Motor intact, Reflexes intact, Cranial nerves intact, Alert, Oriented Psychiatric: Affect appropriate, Mood appropriate Interpretation - Radiology Interpretation Radiology Interpretation By: Radiologist Radiology Results: Negative Exam Interpreted: CT Scan - EKG Interpretation Time of EKG #1: 17:21 Rate: Normal Rhythm: Sinus Ectopy: None [place]: NL ST Segment: Normal Interpretation: nsr Physician Notification - Case Discussed Physician Notified: dr villa Time of Notification: 17:49 Critical Care Note - Critical Care Note Total Time (mins): 0 Course - Course Hematology/Chemistry: 12/19/17 17:10 12/19/17 17:10 Orders, Labs, Meds: Lab Review 12/19/17 12/19/17 12/19/17 16:53 17:10 17:10 WBC 8.63 RBC 3.28 L Hgb 9.3 L Hct 29.3 L MCV 89.3 MCH 28.4 MCHC 31.7 L RDW Coeff of Tr 13.9 Plt Count 150 Immature Gran % (Auto) 0.2 Neut % (Auto) 72.4 Lymph % (Auto) 19.7 [place] % (Auto) 6.0 Eos % (Auto) 1.5 Baso % (Auto) 0.2 Immature Gran # (Auto) 0.0 Neut # (Auto) 6.2 Lymph # (Auto) 1.7 [place] # (Auto) 0.5 Eos # (Auto) 0.1 Baso # (Auto) 0.0 Puncture Site Rrad O2 Saturation 93.0 L ABG pH 7.393 ABG pCO2 57.1 H ABG pO2 68.0 L ABG HCO3 34.8 H ABG Total CO2 37 H ABG Base Excess 10 H Miki Test + O2 Delivery Device Nc Oxygen Liter Flow 2.00 Sodium 140 Potassium 3.5 Chloride 99 Carbon Dioxide 34 H Anion Gap 10.5 BUN 11 Creatinine 0.84 Estimated GFR (MDRD) 67.00 BUN/Creatinine Ratio 13.09 Glucose 135 H Calcium 9.5 Total Bilirubin 0.3 AST 12 L ALT 7 L Alkaline Phosphatase 78 Total Creatine Kinase 41 Troponin I < 0.0100 Total Protein 6.4 Albumin 3.2 L Globulin 3.2 Albumin/Globulin Ratio 1.00 Orders Category Date Time Status ABG DRAW REQUEST Stat CARDIO 12/19/17 16:54 Completed EKG-(ED ONLY) Stat CARDIO 12/19/17 16:53 Completed NEBULIZER TREATMENT Stat CARDIO 12/19/17 16:55 Completed [employer] [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] .ONCE EMERGENCY 12/19/17 16:54 Active ABG Stat LAB 12/19/17 16:53 Completed BLOOD CULTURE (ED ONLY) Stat LAB 12/19/17 17:10 Received CBC W/ AUTO DIFF Stat LAB 12/19/17 17:10 Completed COMPREHENSIVE METABOLIC PANEL Stat LAB 12/19/17 17:10 Completed CREATINE KINASE Stat LAB 12/19/17 17:10 Completed TROPONIN I Stat LAB 12/19/17 17:10 Completed Ceftriaxone Sodium [Rocephin] MEDS 12/19/17 17:04 Discontinued 1 gm .ROUTE .STK-MED ONE Ceftriaxone Sodium [Rocephin] 1 gm MEDS 12/19/17 16:56 Discontinued 0.9 % Sodium Chloride [Sodium Chloride] 50 ml IV ONCE Ipratropium/Albuterol Neb [Duoneb] MEDS 12/19/17 16:55 Discontinued 1 vial NEB ONCE STA Levalbuterol HCl [Xopenex 1.25 mg] MEDS 12/19/17 16:56 Discontinued 1 vial NEB .STK-MED ONE Levalbuterol HCl [Xopenex 1.25 mg] MEDS 12/19/17 16:55 Discontinued 1 vial NEB ONCE STA Methylprednisolone Sod Succ/Pf [Solu-Medrol 125 mg] MEDS 12/19/17 16:54 Discontinued [address] CHEST W/O CONTRAST Stat RADS 12/19/17 16:56 Completed Medications Discontinued Medications Generic Name Dose Route Start Last Admin Trade Name Freq PRN Reason Stop Dose Admin Albuterol/Ipratropium 1 vial 12/19/17 16:55 12/19/17 17:25 Duoneb NEB 12/19/17 16:56 1 vial ONCE STA Administration Ceftriaxone Sodium 1 gm/ 50 mls @ 75 mls/hr 12/19/17 16:56 12/19/17 17:30 Sodium Chloride IV 12/19/17 17:35 75 mls/hr ONCE STA Administration Levalbuterol HCl 1 vial 12/19/17 16:55 12/19/17 17:10 Xopenex 1.25 Mg NEB 12/19/17 16:56 1 vial ONCE STA Administration Methylprednisolone Sodium Succinate 125 mg 12/19/17 16:54 12/19/17 17:29 Solu-Medrol 125 Mg IVP 12/19/17 16:55 125 mg ONCE STA Administration Vital Signs: Temp Pulse Resp BP Pulse Ox 12/19/17 16:54 98.3 F 89 22 134/80 92 L Departure - Departure Time of Disposition: 17:49 Disposition: ADMITTED INPATIENT Discharge Problem: COPD exacerbation Acute respiratory failure Qualifiers: Respiratory failure complication: hypoxia Qualified Code(s): J96.01 - Acute respiratory failure with hypoxia Instructions: COPD (Chronic Obstructive Pulmonary Disease) (ED) Condition: Fair Pt referred to PMD for follow-up: Yes IPMP verified?: No Allergies/Adverse Reactions: Allergies No Known Allergies Allergy (Verified 12/19/17 17:02) Home Medications: Ambulatory Orders Cilostazol [Pletal] 100 mg PO BIDAC 12/09/12 Roflumilast [Daliresp] 500 mcg PO DAILY 03/29/15 Duloxetine HCl [Cymbalta] 60 mg PO DAILY 06/18/15 Rosuvastatin Calcium [Crestor] 20 mg PO BEDTIME 12/27/15 Carvedilol [Coreg] 25 mg PO BIDWM 05/27/16 Clonidine HCl 0.1 mg PO BID #60 tablet 04/08/17 Escitalopram Oxalate [Lexapro] 20 mg PO DAILY #30 tablet 04/08/17 Potassium Chloride [Micro-K Cap] 10 meq PO DAILY #30 capsule.er 04/08/17 Losartan Potassium [Cozaar] 100 mg PO DAILY 04/20/17 Alprazolam [Xanax] 0.25 mg PO TID PRN 05/26/17 Cholecalciferol (Vitamin D3) [Vitamin D] 400 units PO DAILY 05/26/17 Triamterene/Hydrochlorothiazid [Dyazide 37.5-25 Capsule] 1 each PO DAILY Amlodipine Besylate 5 mg PO BID 06/17/17 Aspirin 81 mg PO DAILY 06/17/17 Clopidogrel Bisulfate [Plavix] 75 mg PO DAILY 06/17/17 Cyanocobalamin (Vitamin B-12) [Vitamin B-12] 3,000 mcg PO DAILY 06/17/17 Ferrous Sulfate 325 mg PO BID 06/17/17 Fluticasone/Umeclidin/Vilanter [Trelegy Ellipta 100-62.5-25] 1 each IH BID 06/17 Hydrocodone Bit/Acetaminophen [[place] 10-325] 1 tab PO TID PRN 06/17/17 Pregabalin [Lyrica] 200 mg PO BID 06/17/17 Levalbuterol HCl [Xopenex 1.25 mg] 1 vial NEB RTQ8H PRN #90 vial.neb 06/21/17 Disposition Discussed With: Patient, Family
--- NOTE | 2017-12-19 17:44 | CT ---
Exam: CT scan of the thorax without contrast. Date: 12/19/2017. Comparison: 05/24/2017. HISTORY: Dyspnea. TECHNIQUE: Helical scan of the thorax was performed without contrast. FINDINGS: The thoracic inlet and axillary regions are normal. There are granulomatous calcification s in the mediastinum. No suspicious mediastinal adenopathy is observed. There are extensive vascula r calcifications with the caliber of the thoracic aorta is within normal limits. There are coronary artery calcification but the chamber sizes are normal. There are granulomatous calcifications in the spleen. The spleen and upper liver have a uniform attenuation. The pancreas, adrenal glands and up per poles of the kidneys are normal. A bifurcated endovascular stent graft is seen in the upper abdo men but incompletely visualized. Minor multilevel degenerative changes are present throughout the thoracic spine. No acute osseous ab normalities are observed. Evaluation at lung window settings demonstrates centrolobular emphysematous changes. There are granu lomatous calcifications. No suspicious pulmonary nodules, pleural fluid or consolidation is present. Impression: No acute intrathoracic findings. Emphysematous changes with old granulomatous disease. ASVD. Coronary artery calcifications.
[2017-12-19] MEDS ORDERED: TYLENOL PO PRN (17:51)
[2017-12-19] MEDS ORDERED: ALBUTEROL 0.042% NEB NEB PRN (17:53)
[2017-12-19] MEDS ORDERED: XOPENEX 1.25 MG NEB PRN (17:55)
[2017-12-19] MEDS: MUCINEX PO SCH ×2 (18:19→20:48)
[2017-12-19] MEDS: SODIUM CHLORIDE 1,000 ML IV SCH (18:21)
[2017-12-19 18:22] VITALS: BMI 20.2
[2017-12-19] MEDS: DUONEB NEB SCH ×2 (18:28→23:55)
[2017-12-19] MEDS ORDERED: CATAPRES PO PRN (18:39)
[2017-12-19] MEDS: CRESTOR PO SCH (20:28)
[2017-12-19] MEDS: MICRO-K CAP PO SCH (20:28)
[2017-12-19] MEDS: SOLU-MEDROL 40 MG IVP SCH (20:29)
[2017-12-19] MEDS: LYRICA PO SCH (20:29)
[2017-12-19] MEDS: NORVASC PO SCH (20:29)
[2017-12-19] MEDS ORDERED: FERROUS SULFATE ONE (20:54)
[2017-12-19] MEDS: COLACE PO SCH (20:56)
[2017-12-19] MEDS ORDERED: NON-FORMULARY MEDICATION (Ferrous Sulfate [Ferrous Sulfate] 325 MG) PO SCH (21:00)
[2017-12-19] MEDS ORDERED: CATAPRES PO SCH (21:00)
[2017-12-19] MEDS ORDERED: NON-FORMULARY MEDICATION (Fluticasone/Umeclidin/Vilanter [Trelegy Ellipta 100-62.5-25] 1 E IH SCH (21:00)
[2017-12-20] MEDS: XANAX PO PRN ×2 (00:20→20:57)
[2017-12-20] MEDS: DUONEB NEB SCH ×4 (05:24→23:20)
[2017-12-20] MEDS: PLETAL PO SCH ×2 (05:53→16:45)
[2017-12-20] MEDS: SOLU-MEDROL 40 MG IVP SCH ×3 (05:53→20:53)
[2017-12-20] MEDS: NORCO 10-325 PO PRN ×3 (05:53→20:57)
[2017-12-20] MEDS ORDERED: NON-FORMULARY MEDICATION (Carvedilol [Coreg] 25 MG) PO SCH (08:00)
[2017-12-20] MEDS: LEXAPRO PO SCH (08:42)
[2017-12-20] MEDS: ROCEPHIN 1 GM in SODIUM CHLORIDE 50 ML IV SCH (08:42)
[2017-12-20] MEDS: LYRICA PO SCH ×2 (08:42→20:53)
[2017-12-20] MEDS: DYAZIDE PO SCH (08:42)
[2017-12-20] MEDS: DALIRESP PO SCH (08:42)
[2017-12-20] MEDS: ASPIRIN CHEWABLE PO SCH (08:42)
[2017-12-20] MEDS: VITAMIN D PO SCH (08:43)
[2017-12-20] MEDS: COZAAR PO SCH (08:43)
[2017-12-20] MEDS: NORVASC PO SCH ×2 (08:43→20:54)
[2017-12-20] MEDS: COREG PO SCH ×2 (08:43→16:44)
[2017-12-20] MEDS: MUCINEX PO SCH ×2 (08:43→20:53)
[2017-12-20] MEDS: PLAVIX PO SCH (08:43)
[2017-12-20] MEDS: FERROUS SULFATE PO SCH ×2 (08:43→20:53)
[2017-12-20] MEDS: LOVENOX SUBCUT SCH (08:44)
[2017-12-20] MEDS: CYANOCOBALAMIN 3000 MCG PO SCH (08:46)
[2017-12-20] MEDS ORDERED: NON-FORMULARY MEDICATION (Losartan Potassium 100 MG) PO SCH (09:00)
[2017-12-20] MEDS ORDERED: MICRO-K CAP PO SCH (09:00)
[2017-12-20] MEDS ORDERED: NON-FORMULARY MEDICATION (Escitalopram Oxalate [Lexapro] 20 MG) PO SCH (09:00)
[2017-12-20] MEDS ORDERED: NON-FORMULARY MEDICATION (Duloxetine Hcl [Cymbalta] 60 MG) PO SCH (09:00)
[2017-12-20] MEDS ORDERED: ESCITALOPRAM OXALATE 30 MG PO SCH (09:00)
[2017-12-20] MEDS: NON-FORMULARY MEDICATION (Fluticasone/Umeclidin/Vilanter [Trelegy Ellipta 100-62.5-25] 1 E IH SCH ×2 (17:32→21:02)
[2017-12-20] MEDS: COLACE PO SCH (20:53)
[2017-12-20] MEDS: MICRO-K CAP PO SCH (20:53)
[2017-12-20] MEDS: CRESTOR PO SCH (20:53)
[2017-12-21] MEDS: SODIUM CHLORIDE 1,000 ML IV SCH (02:31)
[2017-12-21] MEDS: DUONEB NEB SCH ×4 (05:20→23:02)
[2017-12-21] MEDS: PLETAL PO SCH ×2 (05:33→16:59)
[2017-12-21] MEDS: SOLU-MEDROL 40 MG IVP SCH ×3 (05:33→20:18)
[2017-12-21] MEDS: LYRICA PO SCH ×2 (08:37→20:19)
[2017-12-21] MEDS: ASPIRIN CHEWABLE PO SCH (08:38)
[2017-12-21] MEDS: VITAMIN D PO SCH (08:38)
[2017-12-21] MEDS: MUCINEX PO SCH ×2 (08:38→20:19)
[2017-12-21] MEDS: LEXAPRO PO SCH (08:38)
[2017-12-21] MEDS: COREG PO SCH ×2 (08:38→16:59)
[2017-12-21] MEDS: DYAZIDE PO SCH (08:39)
[2017-12-21] MEDS: FERROUS SULFATE PO SCH ×2 (08:39→20:18)
[2017-12-21] MEDS: PLAVIX PO SCH (08:39)
[2017-12-21] MEDS: COZAAR PO SCH (08:39)
[2017-12-21] MEDS: NORVASC PO SCH ×2 (08:39→20:19)
[2017-12-21] MEDS: LOVENOX SUBCUT SCH (08:39)
[2017-12-21] MEDS: ROCEPHIN 1 GM in SODIUM CHLORIDE 50 ML IV SCH (08:39)
[2017-12-21] MEDS: DALIRESP PO SCH (08:39)
[2017-12-21] MEDS: CYANOCOBALAMIN 3000 MCG PO SCH (09:03)
[2017-12-21] MEDS: NON-FORMULARY MEDICATION (Fluticasone/Umeclidin/Vilanter [Trelegy Ellipta 100-62.5-25] 1 E IH SCH ×2 (09:04→20:21)
--- NOTE | 2017-12-21 09:57 | PCM.PROG ---
Attending Provider: ATTENDING PROVIDER: Dr. SIDDHARTHA BRITO This patient is seen with Rupal Perez, Nurse Practitioner. DATE OF SERVICE: 12/21/17 SUBJECTIVE: This 72 year old WHITE/ F was hospitalized 12/19/17. The patient is lying in bed, alert. She has been sleeping and eating well. Shortness of breath is slowly improving. Encouraged to get up and about in the room today. REVIEW OF SYSTEMS: CONSTITUTIONAL: No night sweats. No fatigue, malaise, lethargy. No fever or chills. HEENT: Eyes: No visual changes. No eye pain. No eye discharge. ENT: No runny nose. No epistaxis. No sinus pain. No odynophagia. No congestion. RESPIRATORY: Cough. No congestion. No hemoptysis. Shortness of breath. CARDIOVASCULAR: No angina symptoms. No CHF symptoms. No atypical chest pain for CAD. No palpitations. No orthopnea. GASTROINTESTINAL: No abdominal pain. No nausea or vomiting. No diarrhea or constipation. No hematemesis. No hematochezia. GENITOURINARY: No urgency. No frequency. No dysuria. No hematuria. No obstructive symptoms. No discharge. No pain. No significant abnormal bleeding. MUSCULOSKELETAL: No musculoskeletal pain; no joint swelling. NEUROLOGICAL: Awake, alert, oriented to time, place and person. No headache. No neck pain. No syncope. No seizures. No dizziness. PSYCHIATRIC: Not anxious. No depression. No suicidal thoughts. No homicidal thoughts. SKIN: No rash. No lesions. No wounds. ENDOCRINE: No unexplained weight loss. No weight gain. HEMATOLOGIC/LYMPHATIC: No anemia. No purpura. No petechiae. No prolonged or excessive bleeding. No palpable lymph nodes. PHYSICAL EXAMINATION: GENERAL: The patient is awake, alert and oriented, lying in bed in no distress. VITAL SIGNS: Temperature 98.5 F, Pulse 97, Respiratory Rate 16, BP 150/63, Pulse Ox 99% HEENT: Head normocephalic, atraumatic. Eyes: Extraocular muscles are intact. Pupils are equal, round and reactive to light and accommodation. Ears: No lesions. Nose appeared normal. Throat: No exudate or erythema. NECK: Supple. No JVD, no carotid bruit. No lymphadenopathy or thyromegaly. LUNGS: Diminished breath sounds. Clear to auscultation. Percussion note normal. Chest symmetrical. HEART: S1, S2, no S3. No murmurs. No cyanosis or clubbing. No ascites. Pulses: Dorsalis pedis and posterior tibial pulses +1 to +2 both sides. ABDOMEN: Soft. Non-tender. Bowel sounds active. No CVA tenderness. No mass felt. EXTREMITIES: No edema. Full range of motion of all extremities, equal. NEUROLOGIC: No focal deficit. Cranial nerves II through XII are grossly intact. No headache, no double vision or headache. SKIN: Not dry. Intact. Turgor-normal. LYMPHATIC: No palpable lymph nodes/no lymphedema. MUSCULOSKELETAL: Normal joints with no swelling. Muscle tone is normal. LAB REVIEW: 12/21/17 05:01 12/21/17 05:01 12/21/17 05:01: Sodium 138, Potassium 3.6, Chloride 98, Carbon Dioxide 34 H, Anion Gap 9.6, BUN 18, Creatinine 0.78, Estimated GFR (MDRD) 73.00, BUN/ Creatinine Ratio 23.07, Glucose 167 H, Calcium 9.0, Total Bilirubin 0.2, AST 10 L, ALT 6 L, Alkaline Phosphatase 65, Total Protein 6.0, Albumin 3.0 L, Globulin 3.0, Albumin/Globulin Ratio 1.00 12/21/17 05:01: WBC 11.72 H D, RBC 2.92 L, Hgb 8.5 L, Hct 25.7 L, MCV 88.0, MCH 29.1, MCHC 33.1, RDW Coeff of Tr 14.1, Plt Count 136 L, Immature Gran % (Auto) 1.3, Neut % (Auto) 85.6, Lymph % (Auto) 9.8 L, Victoria % (Auto) 3.3, Eos % (Auto) 0.0, Baso % (Auto) 0.0, Immature Gran # (Auto) 0.2, Neut # (Auto) 10.0 H, Lymph # (Auto) 1.2, Victoria # (Auto) 0.4, Eos # (Auto) 0.0, Baso # (Auto) 0.0 ASSESSMENT: 1. Acute respiratory failure 2. COPD exacerbation 3. Anemia 4. Hypertension PLAN: 1. Will monitor hemoglobin. 2. D/C IV fluids. Plan and coordination of the patient's care discussed in the presence of [employer] and nurse. CONDITION: Stable SCRIBED BY: KENISHA FRY Retreader scribed while in presence of service performed by Dr. Brito/Rupal Perez APRN on 12/21/17 ([id number])
[2017-12-21] MEDS: NORCO 10-325 PO PRN ×2 (11:24→20:19)
[2017-12-21] MEDS: XANAX PO PRN ×2 (15:24→20:18)
[2017-12-21] MEDS: MICRO-K CAP PO SCH (20:19)
[2017-12-21] MEDS: CRESTOR PO SCH (20:19)
[2017-12-21] MEDS: COLACE PO SCH (20:20)
[2017-12-21] MEDS ORDERED: ALBUTEROL 0.042% NEB NEB PRN (22:46)
[2017-12-22] MEDS: DUONEB NEB SCH (04:40)
[2017-12-22] MEDS: SOLU-MEDROL 40 MG IVP SCH (05:31)
[2017-12-22] MEDS: PLETAL PO SCH (05:31)
--- NOTE | 2017-12-22 08:37 | PCM.PROG ---
Attending Provider: ATTENDING PROVIDER: Dr. SIDDHARTHA BRITO This patient is seen with Rupal Perez, Nurse Practitioner. DATE OF SERVICE: 12/22/17 SUBJECTIVE: This 72 year old WHITE/ F was hospitalized 12/19/17. The patient is resting comfortably. Shortness of breath is improved. She has been up and about eating well. Hemoglobin improved today. REVIEW OF SYSTEMS: CONSTITUTIONAL: Weakness. No night sweats. No fatigue, malaise, lethargy. No fever or chills. HEENT: Eyes: No visual changes. No eye pain. No eye discharge. ENT: No runny nose. No epistaxis. No sinus pain. No odynophagia. No congestion. RESPIRATORY: Cough. No congestion. No hemoptysis. No shortness of breath. CARDIOVASCULAR: No angina symptoms. No CHF symptoms. No atypical chest pain for CAD. No palpitations. No orthopnea.. GASTROINTESTINAL: No abdominal pain. No nausea or vomiting. No diarrhea or constipation. No hematemesis. No hematochezia. GENITOURINARY: No urgency. No frequency. No dysuria. No hematuria. No obstructive symptoms. No discharge. No pain. No significant abnormal bleeding. MUSCULOSKELETAL: No musculoskeletal pain; no joint swelling. NEUROLOGICAL: Awake, alert, oriented to time, place and person. No headache. No neck pain. No syncope. No seizures. No dizziness. PSYCHIATRIC: Not anxious. No depression. No suicidal thoughts. No homicidal thoughts. SKIN: No rash. No lesions. No wounds. ENDOCRINE: No unexplained weight loss. No weight gain. HEMATOLOGIC/LYMPHATIC: No anemia. No purpura. No petechiae. No prolonged or excessive bleeding. No palpable lymph nodes. PHYSICAL EXAMINATION: GENERAL: The patient is awake, alert and oriented, lying in bed in no distress. VITAL SIGNS: Temperature 97.6 F, Pulse 88, Respiratory Rate 20, BP 144/65, Pulse Ox 94% HEENT: Head normocephalic, atraumatic. Eyes: Extraocular muscles are intact. Pupils are equal, round and reactive to light and accommodation. Ears: No lesions. Nose appeared normal. Throat: No exudate or erythema. NECK: Supple. No JVD, no carotid bruit. No lymphadenopathy or thyromegaly. LUNGS: Diminished breath sounds. Clear to auscultation. Percussion note normal. Chest symmetrical. HEART: S1, S2, no S3. No murmurs. No cyanosis or clubbing. No ascites. Pulses: Dorsalis pedis and posterior tibial pulses +1 to +2 both sides. ABDOMEN: Soft. Non-tender. Bowel sounds active. No CVA tenderness. No mass felt. EXTREMITIES: No edema. Full range of motion of all extremities, equal. NEUROLOGIC: No focal deficit. Cranial nerves II through XII are grossly intact. No headache, no double vision or headache. SKIN: Not dry. Intact. Turgor-normal. LYMPHATIC: No palpable lymph nodes/no lymphedema. MUSCULOSKELETAL: Normal joints with no swelling. Muscle tone is normal. LAB REVIEW: 12/22/17 06:30 12/22/17 06:30 12/22/17 06:30: Sodium 137, Potassium 3.3 L, Chloride 99, Carbon Dioxide 37 H, Anion Gap 4.3, BUN 17, Creatinine 0.74, Estimated GFR (MDRD) 77.00, BUN/ Creatinine Ratio 22.97, Glucose 148 H, Calcium 9.1, Total Bilirubin 0.2, AST 23 , ALT 11, Alkaline Phosphatase 60, Total Protein 6.3, Albumin 3.4 L, Globulin 2.9, Albumin/Globulin Ratio 1.17 12/22/17 06:30: WBC 11.45 H, RBC 3.27 L, Hgb 9.3 L, Hct 28.8 L, MCV 88.1, MCH 28.4, MCHC 32.3, RDW Coeff of Tr 14.2, Plt Count 141, Immature Gran % (Auto) 2.6, Neut % (Auto) 83.1, Lymph % (Auto) 10.4, Boyle % (Auto) 3.8, Eos % (Auto) 0.0, Baso % (Auto) 0.1, Immature Gran # (Auto) 0.3, Neut # (Auto) 9.5 H, Lymph # (Auto) 1.2, Boyle # (Auto) 0.4, Eos # (Auto) 0.0, Baso # (Auto) 0.0 ASSESSMENT: 1. Acute respiratory failure resolved 2. COPD exacerbation improving 3. Anemia improving 4. Hypertension controlled 5. Hypokalemia - will give extra 40 of potassium at discharge PLAN: 1. Potassium 40 mEq daily 2. D/C home 3. Keflex 500 mg t.i.d. times 7 days 4. Prednisone 20 mg b.i.d. for four and daily for three Plan and coordination of the patient's care discussed in the presence of Job Coach/[employer] and nurse. CONDITION: Stable SCRIBED BY: KENISHA FRY Animal Nurse scribed while in presence of service performed by Dr. Brito/Rupal Perez APRN on 12/22/17 ([id number])
[2017-12-22] MEDS: ROCEPHIN 1 GM in SODIUM CHLORIDE 50 ML IV SCH (09:02)
[2017-12-22] MEDS: LYRICA PO SCH (09:02)
[2017-12-22] MEDS: COREG PO SCH (09:03)
[2017-12-22] MEDS: NORCO 10-325 PO PRN (09:03)
[2017-12-22] MEDS: COZAAR PO SCH (09:03)
[2017-12-22] MEDS: XANAX PO PRN (09:04)
[2017-12-22] MEDS: LEXAPRO PO SCH (09:04)
[2017-12-22] MEDS: MUCINEX PO SCH (09:04)
[2017-12-22] MEDS: PLAVIX PO SCH (09:05)
[2017-12-22] MEDS: VITAMIN D PO SCH (09:05)
[2017-12-22] MEDS: DYAZIDE PO SCH (09:05)
[2017-12-22] MEDS: ASPIRIN CHEWABLE PO SCH (09:05)
[2017-12-22] MEDS: CYANOCOBALAMIN 3000 MCG PO SCH (09:06)
[2017-12-22] MEDS: FERROUS SULFATE PO SCH (09:06)
[2017-12-22] MEDS: DALIRESP PO SCH (09:06)
[2017-12-22] MEDS: LOVENOX SUBCUT SCH (09:06)
[2017-12-22] MEDS: NORVASC PO SCH (09:06)
[2017-12-22] MEDS: NON-FORMULARY MEDICATION (Fluticasone/Umeclidin/Vilanter [Trelegy Ellipta 100-62.5-25] 1 E IH SCH (09:08)
--- NOTE | 2017-12-22 09:17 | PN ---
DATE OF SERVICE: 12/19/17 SUBJECTIVE: The patient was seen and examined. She was admitted through the emergency room with complaint of being short of breath, cough and congestion. The patient has continued to smoke. She is a heavy smoker. She has severe chronic end-stage disease. pc02 57, p02 56, normal pH. The patient will be admitted with IV antibiotics, steroids and nebs treatment, oxygen supplementation and telemetry. CONDITION: Stable PROGNOSIS: Guarded TIME SPENT: More than 30 minutes. Plan and coordination of the patient's care discussed in the presence of nurse. KEVIN
--- NOTE | 2017-12-22 09:29 | CM.DICTOOL ---
ADMISSION: 12/19/17 17:51 DISCHARGE: 12/22/17 DATE OF SERVICE: 12/22/17 FINAL DIAGNOSIS COPD EXACERBATION ACUTE RESPIRATORY FAILURE (OXYGEN DEPENDENT) HYPERTENSION CAD S/P STENT APPLICATION CAROTID OCCLUSIVE DISEASE DYSLIPIDEMIA ANEMIA PERIPHERAL ARTERIAL DISEASE NEUROPATHY VASCULAR DEMENTIA DJD SPINE OSTEOARTHRITIS DEPRESSION/ANXIETY/PANIC EPISODES ABDOMINAL AORTIC ANEURYSM, 1997 HYSTERECTOMY, 1989 AORTOILIAC BYPASS CARDIAC STENT APPLICATION CHRONIC SMOKER LAST VITALS Temp Pulse Resp BP Pulse Ox 97.6 F 88 20 144/65 H 94 L 12/22/17 05:27 12/22/17 05:27 12/22/17 05:27 12/22/17 05:27 12/22/17 05:27 TAKE THESE MEDICATIONS AT HOME Acetaminophen/Diphenhydramine (Tylenol PM Gel Tabs) 2 tabs PO BEDTIME Hydrocodone Bitart/Acetaminophen ([place] 10-325) 1 tab PO TID PRN PRN Reason: MODERATE PAIN Last Admin: 12/21/17 20:19 Dose: 1 tab Alprazolam (Xanax) 0.25 mg PO TID PRN PRN Reason: Anxiety Last Admin: 12/21/17 20:18 Dose: 0.25 mg Amlodipine Besylate (Norvasc) 5 mg PO BID [facility] Last Admin: 12/21/17 20:19 Dose: 5 mg Aspirin (Aspirin Chewable) 81 mg PO DAILYWM [facility] Last Admin: 12/21/17 08:38 Dose: 81 mg Carvedilol (Coreg) 25 mg PO BIDWM [facility] Last Admin: 12/21/17 16:59 Dose: 25 mg Cephalexin (Keflex) 500 MG, PO TID x7 DAYS Cholecalciferol (Vitamin D) 400 unit PO DAILY [facility] Last Admin: 12/21/17 08:38 Dose: 400 unit Cilostazol (Pletal) 100 mg PO BIDAC [facility] Last Admin: 12/22/17 05:31 Dose: 100 mg Clonidine (Catapres) 0.1 mg PO DAILY PRN PRN Reason: Blood Pressure Clopidogrel Bisulfate (Plavix) 75 mg PO DAILY [facility] Last Admin: 12/21/17 08:39 Dose: 75 mg Docusate Sodium (Colace) 200 mg PO BEDTIME [facility] Last Admin: 12/21/17 20:20 Dose: 200 mg Escitalopram Oxalate (Lexapro) 30 mg PO DAILY [facility] Last Admin: 12/21/17 08:38 Dose: 30 mg Ferrous Sulfate (Ferrous Sulfate) 324 mg PO BID [facility] Last Admin: 12/21/17 20:18 Dose: 324 mg Levalbuterol HCL (Xopenex 1.25 mg) 1 Vial NEB RT Q8 PRN Losartan Potassium (Cozaar) 100 mg PO DAILY [facility] Last Admin: 12/21/17 08:39 Dose: 100 mg Cyanocobalamin (Vitamin B-12) [Vitamin B-12] 3,000 mcg PO DAILY [facility] Last Admin: 12/21/17 09:03 Dose: Not Given Fluticasone/Umeclidin/Vilanter [Trelegy Ellipta 100-62.5-25] 1 each IH BID [facility] Last Admin: 12/21/17 20:21 Dose: Not Given Potassium Chloride (Micro-K Cap) 10 meq PO BEDTIME [facility] Last Admin: 12/21/17 20:19 Dose: 10 meq Prednisone 20 mg, 1 Tab PO BID x4 DAYS, then 1 TAB PO DAILY x3 DAYS, then STOP Pregabalin (Lyrica) 200 mg PO BID [facility] Last Admin: 12/21/17 20:19 Dose: 200 mg Roflumilast (Daliresp) 500 mcg PO DAILY [facility] Last Admin: 12/21/17 08:39 Dose: 500 mcg Rosuvastatin Calcium (Crestor) 20 mg PO BEDTIME [facility] Last Admin: 12/21/17 20:19 Dose: 20 mg Triamterene/HCTZ (Dyazide) 1 cap PO DAILY [facility] Last Admin: 12/21/17 08:39 Dose: 1 cap ALLERGIES No Known Allergies Allergy (Verified 12/19/17 17:02) NEW PRESCRIPTIONS: Cephalexin [Keflex] 500 mg PO TID #21 capsule 12/22/17 Prednisone 20 mg PO DIRECTED #11 tablet 12/22/17 SMOKING: CURRENT EVERYDAY SMOKER. THE PATIENT HAS RECEIVED SMOKING CESSATION EDUCATION/INFORMATION. SHE HAS A GOOD UNDERSTANDING OF THE ADDED DETRIMENT CONTINUATION POSES TO HER CARDIOPULMONARY HEALTH. SHE HAS NOT VERBALIZED HER INTENTION TO STOP OR CUT DOWN. WE WILL CONTINUE TO ENCOURAGE COMPLETE CESSATION AND PROVIDE REINFORCEMENT FOR SMOKING CESSATION IN THE OUTPATIENT SETTING. DISEASE SPECIFIC EDUCATION: COPD RESPIRATORY FAILURE SMOKING CESSATION HOME MEDICATIONS NEW PRESCRIPTIONS FOLLOW UP ACTIVITY LAB REVIEW: 12/22/17 06:30 12/22/17 06:30 12/22/17 06:30: Sodium 137, Potassium 3.3 L, Chloride 99, Carbon Dioxide 37 H, Anion Gap 4.3, BUN 17, Creatinine 0.74, Estimated GFR (MDRD) 77.00, BUN/ Creatinine Ratio 22.97, Glucose 148 H, Calcium 9.1, Total Bilirubin 0.2, AST 23 , ALT 11, Alkaline Phosphatase 60, Total Protein 6.3, Albumin 3.4 L, Globulin 2.9, Albumin/Globulin Ratio 1.17 12/22/17 06:30: WBC 11.45 H, RBC 3.27 L, Hgb 9.3 L, Hct 28.8 L, MCV 88.1, MCH 28.4, MCHC 32.3, RDW Coeff of Tr 14.2, Plt Count 141, Immature Gran % (Auto) 2.6, Neut % (Auto) 83.1, Lymph % (Auto) 10.4, Josephine % (Auto) 3.8, Eos % (Auto) 0.0, Baso % (Auto) 0.1, Immature Gran # (Auto) 0.3, Neut # (Auto) 9.5 H, Lymph # (Auto) 1.2, Josephine # (Auto) 0.4, Eos # (Auto) 0.0, Baso # (Auto) 0.0 PLAN: DISCHARGE HOME TODAY, 12/22/[address] BRITO/MILDRED IN THE OFFICE ON 12/29/17 AT 11 A.M. RESUME YOUR HOME MEDICATIONS PER LIST PROVIDED BY THE NURSING STAFF NEW PRESCRIPTIONS KEFLEX 500 MG, TAKE ONE CAPSULE BY MOUTH THREE TIMES DAILY X7 DAYS PREDNISONE 20 MG, TAKE ONE TABLET TWICE DAILY X4 DAYS, THEN DAILY X 3 DAYS. TAKE WITH FOOD. ACTIVITY GET PLENTY OF REST AT HOME. GRADUALLY INCREASE YOUR ACTIVITY LEVEL ACCORDING TO YOUR TOLERATION DIET TOLERATED SUMMARY THE PATIENT IS ALERT AND ORIENTED X3. SHE CURRENTLY RESIDES AT HOME AND REQUIRES LITTLE ASSIST WITH ADL'S. HER SPOUSE IS VERY SUPPORTIVE OF HER NEEDS WHEN NECESSARY. AT HOME SHE HAS OXYGEN, NEBULIZER, SHOWER CHAIR, ROLLING WALKER AND AUTOMATIC BLOOD PRESSURE MONITOR. SHE DESIRES TO RETURN HOME AT DISCHARGE. THE SKIN TURGOR SHOWS IMPROVEMENT IN HYDRATION. THERE ARE NO DECUBITUS ULCERS OR OPEN AREAS. APPETITE IS FAIR TO GOOD. THE PATIENT TELLS US SHE IS FEELING BETTER. SHE IS AWARE AND AGREEABLE FOR TODAY'S DISCHARGE PLANS. CURRENT CODE STATUS DO NOT INTUBATE, CPR ONLY MILDRED TRAN APRN SIDDHARTHA BRITO M.D.
--- NOTE | 2017-12-22 09:31 | PN ---
DATE OF SERVICE: 12/20/17 SUBJECTIVE: 72-year-old white female hospitalized with respiratory failure which is more or less chronic. The patient had some c02 retention on ABG on admission. The patient has acute bronchitis with severe chronic lung disease. She has continued to smoke. In fact, she has avoided hospitalization for the past 2 to 3 months which is something unusual. REVIEW OF SYSTEMS: CONSTITUTIONAL: No night sweats. No fatigue, malaise, lethargy. No fever or chills. HEENT: Eyes: No visual changes. No eye pain. No eye discharge. ENT: No runny nose. No epistaxis. No sinus pain. No sore throat. No odynophagia. No congestion. RESPIRATORY: Coughing with yellowish sputum. No hemoptysis. No shortness of breath. CARDIOVASCULAR: The patient has pleuritic pain on the back and lower part of the chest on coughing. No angina symptoms. No CHF symptoms. No atypical chest pain for CAD. No palpitations. No orthopnea. GASTROINTESTINAL: No abdominal pain. No nausea or vomiting. No diarrhea or constipation. No hematemesis. No hematochezia. GENITOURINARY: No urgency. No frequency. No dysuria. No hematuria. No obstructive symptoms. No discharge. No pain. No significant abnormal bleeding. MUSCULOSKELETAL: No musculoskeletal pain; no joint swelling. NEUROLOGICAL: No double vision. No headache. No neck pain. No syncope. No seizures. No dizziness. PSYCHIATRIC: Not anxious. No depression. No suicidal thoughts. No homicidal thoughts. SKIN: No rash. No lesions. No wounds. ENDOCRINE: No unexplained weight loss. No weight gain. HEMATOLOGIC/LYMPHATIC: No anemia. No purpura. No petechiae. No prolonged or excessive bleeding. No palpable lymph nodes. PHYSICAL EXAMINATION: GENERAL: The patient is oriented to time, place and person. VITAL SIGNS: Temperature 99, pulse 78, respiratory rate 16, BP 160/70, pulse ox 99%. HEENT: Head normocephalic, atraumatic. Eyes: Extraocular muscles are intact. Pupils are equal, round and reactive to light and accommodation. Ears: No lesions. Nose appeared normal. Throat: No exudate or erythema. NECK: Supple. No JVD, no carotid bruit. No lymphadenopathy or thyromegaly. LUNGS: Decreased breath sounds. More air entry than yesterday. Clear to auscultation. Percussion note normal. Chest symmetrical. HEART: S1, S2, no S3. No murmurs. No cyanosis or clubbing. No ascites. Pulses: Dorsalis pedis and posterior tibial pulses +1 to +2 both sides. ABDOMEN: Soft. Nontender. Bowel sounds active. No CVA tenderness. No mass felt. EXTREMITIES: No edema. Full range of motion of all extremities, equal. NEUROLOGIC: No focal deficit. Cranial nerves II through XII are grossly intact. No headache, no double vision or headache. SKIN: Not dry. Intact. Turgor - normal. LYMPHATIC: No palpable lymph nodes/no lymphedema. MUSCULOSKELETAL: Normal joints with no swelling. Muscle tone is normal. LABS: Hemoglobin 9, hematocrit 27, WBC 6,300, normal differential. Creatinine 0.7, BUN 13, potassium 3.5. ASSESSMENT: 1. Acute respiratory failure seems to be under control with some c02 retention. 2. Coronary artery disease. 3. Severe chronic lung disease. 4. Smoking. 5. Hypertension. 6. Vascular disease. 7. Hyperglycemia from steroid use. PLAN: 1. Repeat blood gases in the morning. 2. Counseling for smoking done 3. Continue antibiotics 4. Continue steroids 5. Continue nebs treatment 6. Telemetry CONDITION: Stable TIME SPENT: More than 30 minutes. Plan and coordination of the patient's care discussed in the presence of nurse. KEVIN
[2017-12-22] MEDS ORDERED: K-DUR PO STA (09:33)
--- NOTE | 2017-12-22 09:34 | PN ---
DATE OF SERVICE: 12/21/17 SUBJECTIVE: The patient was seen and examined with the nurse practitioner. The patient is being treated with IV antibiotics, steroids, nebs treatment. Telemetry doesn't show any arrhythmias. Again, counseling for smoking done. The patient was seen and examined with the nurse practitioner. TIME SPENT: More than 30 minutes. Plan and coordination of the patient's care discussed in the presence of nurse. KEVIN
[2017-12-22 10:10] VITALS: BP 139/61; TEMP 98
--- NOTE | 2017-12-23 07:28 | DS ---
DATE OF SERVICE: 12/22/17 FINAL DIAGNOSIS: COPD EXACERBATION ACUTE RESPIRATORY FAILURE (OXYGEN DEPENDENT) HYPERTENSION CAD S/P STENT APPLICATION CAROTID OCCLUSIVE DISEASE DYSLIPIDEMIA ANEMIA PERIPHERAL ARTERIAL DISEASE NEUROPATHY VASCULAR DEMENTIA DJD SPINE OSTEOARTHRITIS DEPRESSION/ANXIETY/PANIC EPISODES ABDOMINAL AORTIC ANEURYSM, 1997 HYSTERECTOMY, 1989 AORTOILIAC BYPASS CARDIAC STENT APPLICATION CHRONIC SMOKER LAST VITALS: Temp Pulse Resp BP Pulse Ox 97.6 F 88 20 144/65 H 94 L TAKE THESE MEDICATIONS AT HOME: Acetaminophen/Diphenhydramine (Tylenol PM Gel Tabs) 2 tabs PO BEDTIME Hydrocodone Bitart/Acetaminophen ([place] 10-325) 1 tab PO TID PRN Alprazolam (Xanax) 0.25 mg PO TID PRN Amlodipine Besylate (Norvasc) 5 mg PO BID [facility] Aspirin (Aspirin Chewable) 81 mg PO DAILYWM [facility] Carvedilol (Coreg) 25 mg PO BIDWM [facility] Cephalexin (Keflex) 500 MG, PO TID x7 DAYS Cholecalciferol (Vitamin D) 400 unit PO DAILY [facility] Cilostazol (Pletal) 100 mg PO BIDAC [facility] Clonidine (Catapres) 0.1 mg PO DAILY PRN Clopidogrel Bisulfate (Plavix) 75 mg PO DAILY [facility] Docusate Sodium (Colace) 200 mg PO BEDTIME [facility] Escitalopram Oxalate (Lexapro) 30 mg PO DAILY [facility] Ferrous Sulfate (Ferrous Sulfate) 324 mg PO BID [facility] Levalbuterol HCL (Xopenex 1.25 mg) 1 Vial NEB RT Q8 PRN Losartan Potassium (Cozaar) 100 mg PO DAILY [facility] Cyanocobalamin (Vitamin B-12) [Vitamin B-12] 3,000 mcg PO DAILY [facility] Fluticasone/Umeclidin/Vilanter [Trelegy Ellipta 100-62.5-25] 1 each IH BID [facility] Potassium Chloride (Micro-K Cap) 10 meq PO BEDTIME [facility] Prednisone 20 mg, 1 Tab PO BID x4 DAYS, then 1 TAB PO DAILY x3 DAYS, then STOP Pregabalin (Lyrica) 200 mg PO BID [facility] Roflumilast (Daliresp) 500 mcg PO DAILY [facility] Rosuvastatin Calcium (Crestor) 20 mg PO BEDTIME [facility] Triamterene/HCTZ (Dyazide) 1 cap PO DAILY [facility] ALLERGIES: No Known Allergies Allergy (Verified 12/19/17 17:02) NEW PRESCRIPTIONS: Cephalexin [Keflex] 500 mg PO TID #21 capsule 12/22/17 Prednisone 20 mg PO DIRECTED #11 tablet 12/22/17 SMOKING: CURRENT EVERYDAY SMOKER. THE PATIENT HAS RECEIVED SMOKING CESSATION EDUCATION/INFORMATION. SHE HAS A GOOD UNDERSTANDING OF THE ADDED DETRIMENT CONTINUATION POSES TO HER CARDIOPULMONARY HEALTH. SHE HAS NOT VERBALIZED HER INTENTION TO STOP OR CUT DOWN. WE WILL CONTINUE TO ENCOURAGE COMPLETE CESSATION AND PROVIDE REINFORCEMENT FOR SMOKING CESSATION IN THE OUTPATIENT SETTING. DISEASE SPECIFIC EDUCATION: COPD RESPIRATORY FAILURE SMOKING CESSATION HOME MEDICATIONS NEW PRESCRIPTIONS FOLLOW UP ACTIVITY PLAN: DISCHARGE HOME TODAY, 12/22/[address] BRITO/MILDRED IN THE OFFICE ON 12/29/17 AT 11 A.M. RESUME YOUR HOME MEDICATIONS PER LIST PROVIDED BY THE NURSING STAFF ACTIVITY: GET PLENTY OF REST AT HOME. GRADUALLY INCREASE YOUR ACTIVITY LEVEL ACCORDING TO YOUR TOLERATION DIET: TOLERATED HOSPITAL COURSE: This is a 72 year old white female who presented to the emergency room with shortness of breath, worsening cough with yellow sputum. Chest x-ray showed COPD exacerbation and no acute pneumonia. She does have a history. She is a heavy long-term smoker and is oxygen dependant. She has a history of chronic respiratory failure. ABG's were abnormal and she is admitted and placed on oxygen, Rocephin IV daily along with Solu-Medrol 100mg IV Q 8 hours. Over the course of the next three days her breathing steadily improved. Today on day of discharge she is no longer wheezing, she has been up and about in her room. She is eating well and she will be discharged in stable condition with Keflex 500mg PO three times a day for the next 7 days and Prednisone 20mg twice a day times four day and daily times three days. We will followup with her in office next week. Information is given regarding smoking cessation. We will follow closely. TIME SPENT: More than 60 minutes. MTDD
--- NOTE | 2017-12-23 08:41 | HP ---
DATE OF SERVICE: 12/20/17 (ADMITTED 12/19/17) HISTORY OF PRESENT ILLNESS: 72-year-old white female with severe COPD and chronic respiratory failure who was brought to the emergency room for worsening shortness of breath and yellow productive cough for two to three days. PAST MEDICAL HISTORY: Dyslipidemia Coronary artery disease Hypertension Peripheral arterial disease COPD - use to be a heavy smoker Anxiety/depression Chronic back pain Generalized osteoarthritis History of hyperkalemia Anemia Carotid stenosis Neuropathy Vascular dementia Degenerative joint disease History of aortic aneurysm PAST SURGICAL HISTORY: Hysterectomy Aortoiliac bypass Stent REVIEW OF SYSTEMS: CONSTITUTIONAL: Generalized weakness. No night sweats. No fatigue, malaise, lethargy. No fever or chills. HEENT: Eyes: No visual changes. No eye pain. No eye discharge. ENT: No runny nose. No epistaxis. No sinus pain. No sore throat. No odynophagia. No ear pain. No congestion. RESPIRATORY: Positive for shortness of breath. Cough and congestion. No hemoptysis. CARDIOVASCULAR: No angina symptoms. No CHF symptoms. No atypical chest pain for CAD. No palpitations. No PND. No orthopnea. GASTROINTESTINAL: No abdominal pain. No nausea or vomiting. No diarrhea or constipation. No hematemesis. No hematochezia. GENITOURINARY: No urgency. No frequency. No dysuria. No hematuria. No obstructive symptoms. No discharge. No pain. No significant abnormal bleeding. MUSCULOSKELETAL: No musculoskeletal pain. No joint swelling. No arthritis. NEUROLOGICAL: No headache. No neck pain. No syncope. No seizures. No dizziness. PSYCHIATRIC: Not anxious. No depression. No suicidal thoughts. No homicidal thoughts. SKIN: No rash. No lesions. No wounds. ENDOCRINE: No unexplained weight loss. No weight gain. HEMATOLOGIC/LYMPHATIC: No anemia. No purpura. No petechiae. No prolonged or excessive bleeding. No palpable lymph nodes. PERSONAL/FAMILY/SOCIAL HISTORY: The patient lives at home with her . She is a heavy chronic smoker. No alcohol or illicit drug use. MEDICATIONS: (HOME) Pletal 100 mg p.o. b.i.d. a.c. Daliresp 500 mcg p.o. daily Crestor 20 mg p.o. bedtime Coreg 25 mg p.o. b.i.d. with meal Cozaar 100 mg p.o. daily Triamterene/Hydrochlorothiazide one each p.o. daily Cholecalciferol (Vitamin D3) 400 units p.o. daily Xanax 0.25 mg p.o. t.i.d. p.r.n. Vitamin B12 3,000 mcg p.o. daily Aspirin 81 mg p.o. daily Plavix 75 mg p.o. daily Ferrous Sulfate 325 mg p.o. b.i.d. Amlodipine 5 mg p.o. b.i.d. Hydrocodone/Acetaminophen one tab p.o. t.i.d. p.r.n. Fluticasone/Umeclidinium/Vilanter one each IH b.i.d. Pregabalin 200 mg p.o. b.i.d. Levalbuterol one vial NEB RT q.8h p.r.n. Lexapro 30 mg p.o. daily Micro-K cap 10 mEq p.o. bedtime Catapres 0.1 mg p.o. daily p.r.n. Acetaminophen/Diphenhydramine two tab p.o. bedtime Docusate Sodium two cap p.o. bedtime ALLERGIES: NKDA PHYSICAL EXAMINATION: GENERAL: The patient is , lying/sitting in bed in mild respiratory distress. VITAL SIGNS: HEENT: Head normocephalic, atraumatic. Eyes: Extraocular muscles are intact. Pupils are equal, round and reactive to light and accommodation. Ears: No lesions. Nose appeared normal. Throat: No exudate or erythema. Pallor positive. NECK: Supple. No JVD, no carotid bruit. No lymphadenopathy or thyromegaly. LUNGS: Diminished breath sounds bilaterally. Inspiratory and expiratory wheezing. Percussion note normal. Chest symmetrical. HEART: S1, S2, no S3. No murmurs. No cyanosis or clubbing. No ascites. Pulses: Dorsalis pedis and posterior tibial pulses +1 to +2 bilaterally. ABDOMEN: Soft. Nontender. Bowel sounds active. No CVA tenderness. No mass felt. EXTREMITIES: No edema. Full range of motion of all extremities, equal. NEUROLOGIC: No focal deficit. Cranial nerves II through XII are grossly intact. No headache, no double vision or headache. SKIN: Not dry. Intact. Turgor - normal. LYMPHATIC: No palpable lymph nodes/no lymphedema. MUSCULOSKELETAL: Normal joints with no swelling. Muscle tone is normal. ASSESSMENT: 1. ACUTE RESPIRATORY FAILURE, OXYGEN DEPENDENT 2. COPD WITH ACUTE EXACERBATION 3. HYPERTENSION 4. CORONARY ARTERY DISEASE 5. DYSLIPIDEMIA 6. ANEMIA 7. PERIPHERAL ARTERIAL DISEASE 8. DEMENTIA 9. DEPRESSION/ANXIETY PLAN: 1. Admit to [facility] with routine telemetry orders. 2. CBC, CMP daily. 3. ABGs now. 4. Oxygen 1 to 3L as needed to keep 02 sat at least 90. 5. Chest x-ray. 6. Start on Rocephin 1 gm IV daily. 7. Solu-Medrol 100 mg IV q.8hr. 8. Regular diet. 9. Continue all home medications. 10. IV fluids at NS 30 cc/hr. 11. Follow closely. TIME SPENT: More than 70 minutes. KEVIN
== END 2017-12-22 10:49 | disposition home or self-care (01) | DRG 204 ==
LOC: ED 16:52 → SCU 17:51
PROVIDERS: ADMIT Internal Medicine; ATTEND Internal Medicine
DX: R05 Cough (principal); J96.01 Acute respiratory failure with hypoxia; J44.1 Chronic obstructive pulmonary disease with (acute) exacerbation; J06.9 Acute upper respiratory infection, unspecified; R06.2 Wheezing; I10 Essential (primary) hypertension; I25.10 Atherosclerotic heart disease of native coronary artery without angina pectoris; I65.29 Occlusion and stenosis of unspecified carotid artery; I73.9 Peripheral vascular disease, unspecified; I71.4 Abdominal aortic aneurysm, without rupture; M47.9 Spondylosis, unspecified; M19.90 Unspecified osteoarthritis, unspecified site; E78.5 Hyperlipidemia, unspecified; G62.9 Polyneuropathy, unspecified; D64.9 Anemia, unspecified; F41.8 Other specified anxiety disorders; F01.50 Vascular dementia, unspecified severity, without behavioral disturbance, psychotic disturbance, mood disturbance, and anxiety; Z72.0 Tobacco use; Z99.81 Dependence on supplemental oxygen
CPT/HCPCS: 36415; 80053; 82550; 82803; 84484; 85025; 87040; 87070; 93005; 93010; 94640; 96365; 96375; 99284

== ENCOUNTER 2017-12-21 07:21 | Outpatient (RCR) | END 2018-01-16 23:59 | LOC: EDBD → PUL.REHAB 07:21 | PROVIDERS: ATTEND Internal Medicine | DX: J44.9 Chronic obstructive pulmonary disease, unspecified (principal) ==

== ENCOUNTER 2017-12-30 16:38 | Inpatient (IN) ==
[2017-12-30 16:49] VITALS: BMI 20.5
[2017-12-30] MEDS ORDERED: DUONEB NEB STA (17:16)
[2017-12-30] MEDS ORDERED: PULMICORT 0.25 MG/2 ML NEB STA (17:18)
[2017-12-30] MEDS ORDERED: SOLU-MEDROL 125 MG ONE (17:44)
--- NOTE | 2017-12-30 17:53 | ED.PDOC ---
General ED Provider: Dr. KATT EAST Chief Complaint: Shortness of Air Stated Complaint: Short of breath.Worsening symptoms beginning last evening-all night and throughout today.Currently markedly dyspneic. Was hospitalized a week ago for 3 days Time Seen by Physician: 17:20 Mode of Arrival: Walk-In Information Source: Patient, Family, Assisted Living Exam Limitations: Clinical condition Primary Care Provider: ISDDHARTHA BRITO Referred to ED by: PCP Nursing and Triage Documentation Reviewed and Agree: Yes Does patient meet sepsis criteria?: No System Inflammatory Response Syndrome: Not Applicable Sepsis Protocol: For patient's 13 years and over: Temp is 96.8 and below OR 101 and greater Pulse >90 BPM Resp >20/minute Acutely Altered Mental Status Are patient's symptoms suggestive of a new infection, such as: -Pneumonia -Skin, Soft Tissue -Endocarditis -UTI -Bone, Joint Infection -Implantable Device -Acute Abdominal Infection -Wound Infection -Meningitis -Blood Stream Catheter Infection -Unknown Respiratory Complaint Exam - Shortness of Air Complaint/Exam Onset/Duration: Last evening Symptoms Are: Still present Timing: Constant Initial Severity: Severe Current Severity: Severe Character: Reports: Dyspnea at rest, Dyspnea on exertion Aggravating: Reports: None Alleviating: Reports: None Associated Signs and Symptoms: Reports: Cough, Wheezing, Rapid breathing, Labored breathing. Denies: Chest pain with cough, Chest pain, Fever, Chills, Diaphoresis, Nasal congestion, Dizziness, Calf pain, Calf swelling, Edema, Decreased intake Related History: Reports: Similar episode History of Healthcare-Acquired Pneumonia: No Pulmonary Embolism Risk Factors: Reports: None Cardiac Risk Factors: Reports: None Pseudomonas Risk Factors: Reports: None Tuberculosis Risk Factors: Reports: None Home Oxygen Use: Yes Recent Stress Test: No Respiratory Distress: Moderate Stridor Present: No Tracheal Deviation: No Subcutaneous Emphysema: No Accessory Muscle Use: Yes Retractions: Intercostal, Diaphragmatic Diminished Breath Sounds: Yes Prolonged Expiratory Phase: No Unable to Speak Full Sentences: Yes Fatigue: Yes Leg Swelling: No Enzo's Sign Present: No Grunting Respirations: No Kussmaul Respirations: No Quality Indicator For Non-Traumatic Chest Pain/Syncope: EKG Performed Review of Systems - Review Of Systems Constitutional: Reports: Weakness, Loss of appetite Eyes: Reports: No symptoms Ears, Nose, Mouth, Throat: Reports: No symptoms Respiratory: Reports: Cough, Orthopnea, Short of air, Wheezing Cardiac: Reports: No symptoms GI: Reports: No symptoms : Reports: No symptoms Musculoskeletal: Reports: No symptoms Skin: Reports: No symptoms Neurological: Reports: No symptoms Endocrine: Reports: No symptoms Hematologic/Lymphatic: Reports: No symptoms All Other Systems: Reviewed and Negative Past Medical History - Past Medical History Previously Healthy: No Endocrine: Reports: Dyslipidemia Cardiovascular: Reports: CAD, Hypertension, Other (PAD) Respiratory: Reports: COPD Hematological: Reports: None Gastrointestinal: Reports: None Genitourinary: Reports: None Neuro/Psych: Reports: Anxiety, Depression Musculoskeletal: Reports: Arthritis, Back Pain, Joint Pain Cancer: Reports: None Last Menstrual Period: HYSTERECTOMY - Surgical History General Surgical History: Reports: Hysterectomy, Stent Placement - Family History Family History: Reports: Unknown - Social History Smoking Status: Current some day smoker Hx Substance Use: No Alcohol Screening: None - Immunizations Tetanus Shot up to Date: Yes Physical Exam - Physical Exam Appearance: Ill-appearing, Thin Ill-appearing: Severe Pain Distress: None Eyes: ARIEL, EOMI, Conjunctiva clear ENT: Ears normal, Nose normal, Oropharynx normal Neck: Supple Respiratory: Airway patent, Breath sounds diminished, Rhonchi, Wheezes Cardiovascular: RRR, Pulses normal, No rub, No murmur GI/: Soft, Nontender, No masses, Bowel sounds normal, No Organomegaly Musculoskeletal: Normal strength, ROM intact, No edema, No calf tenderness Skin: Dry, Pale Neurological: Sensation intact, Motor intact, Reflexes intact, Cranial nerves intact, Alert, Oriented Psychiatric: Affect appropriate, Mood appropriate, Anxious Interpretation - Radiology Interpretation Radiology Interpretation By: Radiologist Radiology Results: No acute changes Xray Comments: chronic changes/copd Re-Evaluation - Re-Evaluation Time of Re-Evaluation: 18:30 Status: Improved Vital Signs Stable: Yes Appearance: Other Lungs: Other (diminished BS with improved wheezing) Skin: Warm and Dry Neuro: Alert and Oriented X3 CV: RRR Physician Notification - Case Discussed Physician Notified: Dr Brito Time of Notification: 18:50 (Admit for acute exacerbation COPD) Critical Care Note - Critical Care Note Total Time (mins): 30 Course - Course Hematology/Chemistry: 01/01/18 04:05 01/01/18 04:05 Orders, Labs, Meds: Lab Review 12/30/17 12/30/17 12/30/17 16:58 16:58 17:13 WBC 11.11 H RBC 3.92 L Hgb 11.6 L Hct 35.1 L MCV 89.5 MCH 29.6 MCHC 33.0 RDW Coeff of Tr 15.5 H Plt Count 130 L Immature Gran % (Auto) 0.8 Neut % (Auto) 87.2 Lymph % (Auto) 7.8 L [place] % (Auto) 4.0 Eos % (Auto) 0.1 Baso % (Auto) 0.1 Immature Gran # (Auto) 0.1 Neut # (Auto) 9.7 H Lymph # (Auto) 0.9 [place] # (Auto) 0.4 Eos # (Auto) 0.0 Baso # (Auto) 0.0 Puncture Site Rr O2 Saturation 92.0 L ABG pH 7.415 ABG pCO2 56.2 H ABG pO2 64.0 L ABG HCO3 36.1 H ABG Total CO2 38 H ABG Base Excess 12 H Miki Test + O2 Delivery Device Nc Oxygen Liter Flow 3.00 Sodium 136.1 L Potassium 3.56 Chloride 94.6 L Carbon Dioxide 36.7 H Anion Gap 8.36 BUN 15.5 Creatinine 0.79 Estimated GFR (MDRD) 72.00 BUN/Creatinine Ratio 19.62 Glucose 178.1 H Calcium 8.97 Magnesium 1.93 Total Bilirubin 0.18 L AST 33.8 ALT 41.5 H Alkaline Phosphatase 62.0 Total Protein 6.94 Albumin 3.98 Globulin 2.96 Albumin/Globulin Ratio 1.34 Orders Category Date Time Status ABG DRAW REQUEST Stat CARDIO 12/30/17 17:15 Completed EKG-(ED ONLY) Stat CARDIO 12/30/17 17:13 Completed NEBULIZER TREATMENT Routine CARDIO 12/30/17 19:37 Completed NEBULIZER TREATMENT Stat CARDIO 12/30/17 17:16 Completed NEBULIZER TREATMENT Stat CARDIO 12/30/17 17:18 Completed OXYGEN Routine CARDIO 12/30/17 19:07 Active BLOOD GLUCOSE MONITORING 0630,1100,1700,2100 CARE 12/30/17 19:36 Active INTAKE & OUTPUT Q8HR CARE 12/30/17 19:35 Active REGULAR DIET DIETARY 12/30/17 Dinner Ordered IV [ED IV/MEDIPORT/POWERPORT] .ONCE EMERGENCY 12/30/17 17:15 Active OXYGEN [ED APPLY O2] .ONCE EMERGENCY 12/30/17 17:15 Active ABG Stat LAB 12/30/17 17:13 Completed BLOOD CULTURE (ED ONLY) Stat LAB 12/30/17 17:32 Results CBC W/ AUTO DIFF DAILY@0600 LAB 12/31/17 01:40 Completed CBC W/ AUTO DIFF DAILY@0600 LAB 01/01/18 04:05 Completed CBC W/ AUTO DIFF Stat LAB 12/30/17 16:58 Completed CMP [COMPREHENSIVE METABOLIC PANEL] Stat LAB 12/30/17 16:58 Completed COMPREHENSIVE METABOLIC PANEL DAILY@0600 LAB 01/01/18 04:05 Completed MAGNESIUM Stat LAB 12/30/17 16:58 Completed TROPONIN I Q8H LAB 12/31/17 01:40 Completed TROPONIN I Q8H LAB 12/31/17 10:00 Completed 0.9 % Sodium Chloride [Saline Flush] MEDS 12/30/17 17:15 Active 1 syr IVF PRN PRN Acetaminophen [Tylenol] MEDS 12/30/17 19:07 Active 650 mg PO Q4H PRN Azithromycin [Zithromax] MEDS 12/31/17 19:39 Active 250 mg PO DAILY Azithromycin [Zithromax] MEDS 12/30/17 19:07 Discontinued 500 mg PO ONCE STA Budesonide [Pulmicort 0.25 mg/2 ml] MEDS 12/30/17 17:18 Discontinued 1 vial NEB ONCE STA Ceftriaxone Sodium [Rocephin] 1 gm MEDS 12/30/17 20:00 Active 0.9 % Sodium Chloride [Sodium Chloride] 50 ml IV DAILY Enoxaparin Sodium [Lovenox] MEDS 12/30/17 20:00 Discontinued 40 mg SUBCUT DAILY Ipratropium/Albuterol Neb [Duoneb] MEDS 12/30/17 17:16 Discontinued 1 vial NEB ONCE STA Levalbuterol HCl [Xopenex 0.63 mg] MEDS 12/30/17 19:07 Discontinued 1 vial NEB RTQ6H PRN Methylprednisolone Sod Succ/Pf [Solu-Medrol 125 mg] MEDS 12/30/17 18:04 Discontinued 125 mg IVP ONCE STA Methylprednisolone Sod Succ/Pf [Solu-Medrol 125 mg] MEDS 12/30/17 21:00 Discontinued 125 mg IVP Q8HR Ondansetron HCl/Pf [Zofran 4 mg/2 ml] MEDS 12/30/17 19:07 Active 4 mg IVP Q6H PRN RESUSCITATION STATUS Routine OTHERS 12/30/17 19:07 Ordered CHEST, 1V AP ONLY Stat RADS 12/30/17 17:13 Completed OT CONSULTATION Routine THERAPIES 12/30/17 Ordered PT CONSULT Routine THERAPIES 12/30/17 Ordered Medications Generic Name Dose Route Start Last Admin Trade Name Freq PRN Reason Stop Dose Admin Acetaminophen 650 mg 12/30/17 19:07 Tylenol PO Q4H PRN pain or fever Hydrocodone Bitart/Acetaminophen 1 tab 12/30/17 23:27 12/31/17 22:22 [place] 10-325 PO 1 tab TID PRN Administration MODERATE PAIN Albuterol Sulfate 1 vial 12/30/17 20:06 01/01/18 17:18 Albuterol 0.083% Neb NEB 1 vial RTQ2H PRN Administration Wheezing Alprazolam 0.25 mg 12/31/17 12:00 01/01/18 17:06 Xanax PO 0.25 mg Q6HR AYAD Administration Amlodipine Besylate 5 mg 12/30/17 23:30 01/01/18 09:48 Norvasc PO 5 mg BID AYAD Administration Aspirin 81 mg 12/31/17 09:00 01/01/18 09:47 Aspirin Chewable PO 81 mg DAILY AYAD Administration Azithromycin 250 mg 12/31/17 19:39 01/01/18 09:55 Zithromax PO 01/03/18 09:01 250 mg DAILY AYAD Administration Budesonide 1 vial 12/31/17 06:00 01/01/18 04:45 Pulmicort 0.5 Mg/2 Ml NEB 1 vial RTBID AYAD Administration Carvedilol 25 mg 12/31/17 08:00 01/01/18 17:06 Coreg PO 25 mg BIDWM AYAD Administration Cholecalciferol 400 unit 12/31/17 09:00 01/01/18 09:48 Vitamin D PO 400 unit DAILY AYAD Administration Cilostazol 100 mg 12/31/17 06:30 01/01/18 17:06 Pletal PO 100 mg BIDAC AYAD Administration Clonidine 0.1 mg 12/30/17 23:24 Catapres PO DAILY PRN Blood Pressure Clopidogrel Bisulfate 75 mg 12/31/17 09:00 01/01/18 09:48 Plavix PO 75 mg DAILY AYAD Administration Diphenhydramine HCl 25 mg 12/31/17 22:00 12/31/17 22:21 Benadryl PO 25 mg BEDTIME AYAD Administration Docusate Sodium 200 mg 12/31/17 21:00 12/31/17 21:27 Colace PO 200 mg BEDTIME AYAD Administration Enoxaparin Sodium 40 mg 12/31/17 21:00 12/31/17 21:31 Lovenox SUBCUT 40 mg BEDTIME AYAD Administration Escitalopram Oxalate 30 mg 12/31/17 09:00 01/01/18 09:48 Lexapro PO 30 mg DAILY AYAD Administration Ferrous Sulfate 324 mg 12/31/17 09:00 01/01/18 09:48 Ferrous Sulfate PO 324 mg BID AYAD Administration Ceftriaxone Sodium 1 gm/ 50 mls @ 75 mls/hr 12/30/17 20:00 01/01/18 09:47 Sodium Chloride IV 75 mls/hr DAILY AYAD Administration Insulin Human Regular 0 unit 12/31/17 11:33 01/01/18 11:21 Humulin R SUBCUT 6 unit PRN PRN Administration Hyperglycemica Protocol Levalbuterol HCl 1 vial 12/31/17 00:00 01/01/18 12:50 Xopenex 1.25 Mg NEB 1 vial RTQ6H AYAD Administration Losartan Potassium 100 mg 12/31/17 09:00 01/01/18 09:48 Cozaar PO 100 mg DAILY AYAD Administration Methylprednisolone Sodium Succinate 125 mg 12/31/17 12:00 01/01/18 17:30 Solu-Medrol 125 Mg IVP 125 mg Q6HR AYAD Administration Non-Formulary Medication 3,000 mcg 12/31/17 09:00 01/01/18 09:52 Cyanocobalamin (Vitamin B-12) [Vitamin B-12] PO Not Given DAILY AYAD Non-Formulary Medication 2 puff 01/01/18 09:00 01/01/18 09:47 Tiotropium Br/Olodaterol Hcl [Stiolto Respimat Inhal [place]] IH 2 puff DAILY AYAD Administration Ondansetron HCl 4 mg 12/30/17 19:07 Zofran 4 Mg/2 Ml IVP Q6H PRN nausea vomiting Potassium Chloride 10 meq 12/30/17 23:30 12/31/17 21:28 Micro-K Cap PO 10 meq BEDTIME AYAD Administration Pregabalin 200 mg 12/30/17 23:30 01/01/18 09:47 Lyrica PO 200 mg BID AYAD Administration Roflumilast 500 mcg 12/31/17 09:00 01/01/18 09:48 Daliresp PO 500 mcg DAILY AYAD Administration Rosuvastatin Calcium 20 mg 12/31/17 21:00 12/31/17 21:26 Crestor PO 20 mg BEDTIME AYAD Administration Sodium Chloride 1 syr 12/30/17 17:15 01/01/18 13:13 Saline Flush IVF 1 syr PRN PRN Administration To flush IV Sodium Chloride 1 syr 01/01/18 21:00 Saline Flush IVF Q8HR AYAD Triamterene/HCTZ 1 cap 12/31/17 09:00 01/01/18 09:49 Dyazide PO 1 cap DAILY AYAD Administration Discontinued Medications Generic Name Dose Route Start Last Admin Trade Name Freq PRN Reason Stop Dose Admin Albuterol/Ipratropium 1 vial 12/30/17 17:16 12/30/17 17:24 Duoneb NEB 12/30/17 17:17 1 vial ONCE STA Administration Alprazolam 0.25 mg 12/30/17 23:19 12/30/17 23:46 Xanax PO 0.25 mg TID PRN Administration Anxiety Alprazolam 0.25 mg 12/31/17 08:23 12/31/17 09:11 Xanax PO 12/31/17 08:24 0.25 mg ONCE STA Administration Azithromycin 500 mg 12/30/17 19:07 12/30/17 20:46 Zithromax PO 12/30/17 19:08 500 mg ONCE STA Administration Budesonide 1 vial 12/30/17 17:18 12/30/17 20:22 Pulmicort 0.25 Mg/2 Ml NEB 12/30/17 17:19 Not Given ONCE STA Enoxaparin Sodium 40 mg 12/30/17 20:00 12/30/17 20:43 Lovenox SUBCUT 40 mg DAILY AYAD Administration Levalbuterol HCl 1 vial 12/30/17 19:07 Xopenex 0.63 Mg NEB RTQ6H PRN Wheezing Methylprednisolone Sodium Succinate 125 mg 12/30/17 18:04 12/30/17 18:08 Solu-Medrol 125 Mg IVP 12/30/17 18:05 Not Given ONCE STA Methylprednisolone Sodium Succinate 125 mg 12/30/17 21:00 12/31/17 05:55 Solu-Medrol 125 Mg IVP 125 mg Q8HR AYAD Administration Non-Formulary Medication 2 tab 12/30/17 23:30 12/30/17 23:46 Acetaminophen/Diphenhydramine [Acetaminophen Pm Geltab] PO Not Given BEDTIME AYAD Non-Formulary Medication 1 each 12/31/17 09:00 12/31/17 22:00 Fluticasone/Umeclidin/Vilanter [Trelegy Ellipta 100-62.5-25] IH 1 each BID AYAD Administration Vital Signs: Temp Pulse Resp BP Pulse Ox 12/30/17 16:39 97.9 F 102 H 22 182/111 H 95 Departure - Departure Time of Disposition: 18:55 Disposition: ADMITTED INPATIENT Discharge Problem: Acute exacerbation of chronic obstructive airways disease Condition: Stable Pt referred to PMD for follow-up: Yes IPMP verified?: No Additional Instructions: Encouraged patient for compliance with treatment Allergies/Adverse Reactions: Allergies No Known Allergies Allergy (Verified 12/30/17 16:42) Home Medications: Ambulatory Orders Cilostazol [Pletal] 100 mg PO BIDAC 12/09/12 Roflumilast [Daliresp] 500 mcg PO DAILY 03/29/15 Rosuvastatin Calcium [Crestor] 20 mg PO BEDTIME 12/27/15 Carvedilol [Coreg] 25 mg PO BIDWM 05/27/16 Losartan Potassium [Cozaar] 100 mg PO DAILY 04/20/17 Alprazolam [Xanax] 0.25 mg PO TID PRN 05/26/17 Cholecalciferol (Vitamin D3) [Vitamin D] 400 units PO DAILY 05/26/17 Triamterene/Hydrochlorothiazid [Dyazide 37.5-25 Capsule] 1 each PO DAILY Amlodipine Besylate 5 mg PO BID 06/17/17 Aspirin 81 mg PO DAILY 06/17/17 Clopidogrel Bisulfate [Plavix] 75 mg PO DAILY 06/17/17 Cyanocobalamin (Vitamin B-12) [Vitamin B-12] 3,000 mcg PO DAILY 06/17/17 Ferrous Sulfate 325 mg PO BID 06/17/17 Hydrocodone Bit/Acetaminophen [[place] 10-325] 1 tab PO TID PRN 06/17/17 Pregabalin [Lyrica] 200 mg PO BID 06/17/17 Levalbuterol HCl [Xopenex 1.25 mg] 1 vial NEB RTQ8H PRN #90 vial.neb 06/21/17 Acetaminophen/Diphenhydramine [Acetaminophen Pm Geltab] 2 tab PO BEDTIME Clonidine HCl [Catapres] 0.1 mg PO DAILY PRN 12/19/17 Docusate Sodium 2 cap PO BEDTIME 12/19/17 Escitalopram Oxalate [Lexapro] 30 mg PO DAILY 12/19/17 Potassium Chloride [Micro-K Cap] 10 meq PO BEDTIME 12/19/17 Cephalexin [Keflex] 500 mg PO TID #21 capsule 12/22/17 Prednisone 20 mg PO DIRECTED #11 tablet 12/22/17 Tiotropium Br/Olodaterol HCl [Stiolto Respimat Inhal [place]] 2 puff IH DAILY Disposition Discussed With: Patient, Family Additional Comments Additional Comments: Discussed at length with patient and harmful effects oooof tobacco us and encouage both to discontine tobacco use be supportive of each other and donot allow others to smoke in there presence. substituting nicotede product s if necessary and go to pulmonary rehab.
[2017-12-30] MEDS ORDERED: SOLU-MEDROL 125 MG IVP STA (18:04)
[2017-12-30] MEDS ORDERED: ZITHROMAX PO STA (19:07)
[2017-12-30] MEDS ORDERED: ZOFRAN 4 MG/2 ML IVP PRN (19:07)
[2017-12-30] MEDS ORDERED: DUONEB NEB PRN (19:07)
[2017-12-30] MEDS ORDERED: TYLENOL PO PRN (19:07)
[2017-12-30] MEDS ORDERED: XOPENEX 0.63 MG NEB PRN (19:07)
[2017-12-30] MEDS ORDERED: LOVENOX SUBCUT SCH (20:00)
[2017-12-30] MEDS ORDERED: ROCEPHIN ONE (20:36)
[2017-12-30] MEDS: ROCEPHIN 1 GM in SODIUM CHLORIDE 50 ML IV SCH (20:42)
[2017-12-30] MEDS: SOLU-MEDROL 125 MG IVP SCH (20:43)
[2017-12-30] MEDS ORDERED: SOLU-MEDROL 125 MG IVP SCH (21:00)
[2017-12-30] MEDS: XOPENEX 1.25 MG NEB SCH (23:09)
[2017-12-30] MEDS ORDERED: XANAX PO PRN (23:19)
[2017-12-30] MEDS ORDERED: CATAPRES PO PRN (23:24)
[2017-12-30] MEDS ORDERED: [UNRECOGNIZED DRUG - OTHER] PO SCH (23:30)
[2017-12-30] MEDS ORDERED: ACETAMINOPHEN PO SCH (23:30)
[2017-12-30] MEDS ORDERED: DIPHENHYDRAMINE PO SCH (23:30)
[2017-12-30] MEDS ORDERED: K-DUR ONE (23:39)
[2017-12-30] MEDS: LYRICA PO SCH (23:45)
[2017-12-30] MEDS: NORCO 10-325 PO PRN (23:45)
[2017-12-30] MEDS: NORVASC PO SCH (23:45)
[2017-12-30] MEDS: MICRO-K CAP PO SCH (23:46)
[2017-12-31] MEDS: PULMICORT 0.5 MG/2 ML NEB SCH ×2 (05:01→16:45)
[2017-12-31] MEDS: XOPENEX 1.25 MG NEB SCH ×4 (05:01→23:00)
[2017-12-31] MEDS: SOLU-MEDROL 125 MG IVP SCH ×4 (05:55→23:12)
[2017-12-31] MEDS: PLETAL PO SCH ×2 (05:57→17:08)
--- NOTE | 2017-12-31 07:32 | DI ---
EXAM: CHEST FRONTAL VIEW HISTORY: Shortness of breath. COMPARISON: 06/17/2017 FINDINGS: Heart size remains within normal limits. Moderate atherosclerotic disease is suggested. Mild hyperinflation. Chronic appearing interstitial changes. No definite consolidated pneumonia is seen. Normal vascularity. No pleural fluid or pneumothorax IMPRESSION: Cannot exclude a component chronic obstructive pulmonary disease, correlate clinically. No definite acute infiltrates. If symptoms persist, consider follow up with full inspiration, standing two-view c hest radiography using PA and lateral technique.
[2017-12-31] MEDS ORDERED: NON-FORMULARY MEDICATION (Carvedilol [Coreg] 25 MG) PO SCH (08:00)
[2017-12-31] MEDS ORDERED: XANAX PO STA (08:23)
[2017-12-31] MEDS ORDERED: ESCITALOPRAM OXALATE 30 MG PO SCH (09:00)
[2017-12-31] MEDS ORDERED: NON-FORMULARY MEDICATION (Ferrous Sulfate [Ferrous Sulfate] 325 MG) PO SCH (09:00)
[2017-12-31] MEDS ORDERED: NON-FORMULARY MEDICATION (Losartan Potassium 100 MG) PO SCH (09:00)
[2017-12-31] MEDS: ASPIRIN CHEWABLE PO SCH (09:05)
[2017-12-31] MEDS: COREG PO SCH ×2 (09:06→17:08)
[2017-12-31] MEDS: COZAAR PO SCH (09:07)
[2017-12-31] MEDS: FERROUS SULFATE PO SCH ×2 (09:08→21:30)
[2017-12-31] MEDS: DALIRESP PO SCH (09:08)
[2017-12-31] MEDS: DYAZIDE PO SCH (09:08)
[2017-12-31] MEDS: LEXAPRO PO SCH (09:09)
[2017-12-31] MEDS: LYRICA PO SCH ×2 (09:09→21:29)
[2017-12-31] MEDS: PLAVIX PO SCH (09:10)
[2017-12-31] MEDS: NORVASC PO SCH ×2 (09:10→21:28)
[2017-12-31] MEDS: ROCEPHIN 1 GM in SODIUM CHLORIDE 50 ML IV SCH (09:11)
[2017-12-31] MEDS: VITAMIN D PO SCH (09:11)
[2017-12-31] MEDS: NON-FORMULARY MEDICATION (Fluticasone/Umeclidin/Vilanter [Trelegy Ellipta 100-62.5-25] 1 E IH SCH ×2 (09:26→22:00)
[2017-12-31] MEDS: CYANOCOBALAMIN 3000 MCG PO SCH (09:26)
--- NOTE | 2017-12-31 09:57 | PCM.PROG ---
Attending Provider: ATTENDING PROVIDER: Dr. SIDDHARTHA BRITO This patient is seen with Rupal Perez, Nurse Practitioner. DATE OF SERVICE: 12/31/17 SUBJECTIVE: This 72 year old WHITE/ F was hospitalized 12/30/17. The patient is lying in bed resting comfortably. She is still short of breath this morning. REVIEW OF SYSTEMS: CONSTITUTIONAL: Weakness. No night sweats. No malaise, lethargy. No fever or chills. HEENT: Eyes: No visual changes. No eye pain. No eye discharge. ENT: No runny nose. No epistaxis. No sinus pain. No odynophagia. No congestion. RESPIRATORY: Cough and wheezing. No hemoptysis. Shortness of breath. CARDIOVASCULAR: No angina symptoms. No CHF symptoms. No atypical chest pain for CAD. No palpitations. No orthopnea.. GASTROINTESTINAL: No abdominal pain. No nausea or vomiting. No diarrhea or constipation. No hematemesis. No hematochezia. GENITOURINARY: No urgency. No frequency. No dysuria. No hematuria. No obstructive symptoms. No discharge. No pain. No significant abnormal bleeding. MUSCULOSKELETAL: No musculoskeletal pain; no joint swelling. NEUROLOGICAL: Awake, alert, oriented to time, place and person. No headache. No neck pain. No syncope. No seizures. No dizziness. PSYCHIATRIC: Not anxious. No depression. No suicidal thoughts. No homicidal thoughts. SKIN: No rash. No lesions. No wounds. ENDOCRINE: No unexplained weight loss. No weight gain. HEMATOLOGIC/LYMPHATIC: No anemia. No purpura. No petechiae. No prolonged or excessive bleeding. No palpable lymph nodes. PHYSICAL EXAMINATION: GENERAL: The patient is awake, alert and oriented, lying in bed in no distress. VITAL SIGNS: Temperature 97.8 F, Pulse 78, Respiratory Rate 20, BP 143/70, Pulse Ox 97% HEENT: Head normocephalic, atraumatic. Eyes: Extraocular muscles are intact. Pupils are equal, round and reactive to light and accommodation. Ears: No lesions. Nose appeared normal. Throat: No exudate or erythema. NECK: Supple. No JVD, no carotid bruit. No lymphadenopathy or thyromegaly. LUNGS: Bilateral inspiratory and expiratory wheezing. Percussion note normal. Chest symmetrical. HEART: S1, S2, no S3. No murmurs. No cyanosis or clubbing. No ascites. Pulses: Dorsalis pedis and posterior tibial pulses +1 to +2 both sides. ABDOMEN: Soft. Non-tender. Bowel sounds active. No CVA tenderness. No mass felt. EXTREMITIES: No edema. Full range of motion of all extremities, equal. NEUROLOGIC: No focal deficit. Cranial nerves II through XII are grossly intact. No headache, no double vision or headache. SKIN: Not dry. Intact. Turgor-normal. LYMPHATIC: No palpable lymph nodes/no lymphedema. MUSCULOSKELETAL: Normal joints with no swelling. Muscle tone is normal. LAB REVIEW: 12/31/17 01:40 12/31/17 01:40 12/31/17 01:40: WBC 6.17, RBC 3.44 L, Hgb 10.0 L, Hct 30.8 L, MCV 89.5, MCH 29.1 , MCHC 32.5, RDW Coeff of Tr 15.3 H, Plt Count 103 L, Immature Gran % (Auto) 1.5, Neut % (Auto) 82.6, Lymph % (Auto) 13.1, Pierce % (Auto) 2.6, Eos % (Auto) 0.0, Baso % (Auto) 0.2, Immature Gran # (Auto) 0.1, Neut # (Auto) 5.1, Lymph # ( Auto) 0.8, Pierce # (Auto) 0.2 L, Eos # (Auto) 0.0, Baso # (Auto) 0.0 12/31/17 01:40: Sodium 134.7 L, Potassium 4.31, Chloride 94.3 L, Carbon Dioxide 36.6 H, Anion Gap 8.11, BUN 16.4, Creatinine 0.87, Estimated GFR (MDRD) 64.00, BUN/Creatinine Ratio 18.85, Glucose 165.8 H, Calcium 8.42, Total Bilirubin 0.11 L, AST 36.7 H, ALT 39.6 H, Alkaline Phosphatase 53.6, Troponin I 0.013, Total Protein 6.11 L, Albumin 3.41 L, Globulin 2.70, Albumin/Globulin Ratio 1.26 12/30/17 17:13: Puncture Site Rr, O2 Saturation 92.0 L, ABG pH 7.415, ABG pCO2 56.2 H, ABG pO2 64.0 L, ABG HCO3 36.1 H, ABG Total CO2 38 H, ABG Base Excess 12 H, Miki Test +, O2 Delivery Device Nc, Oxygen Liter Flow 3.00 12/30/17 16:58: Sodium 136.1 L, Potassium 3.56, Chloride 94.6 L, Carbon Dioxide 36.7 H, Anion Gap 8.36, BUN 15.5, Creatinine 0.79, Estimated GFR (MDRD) 72.00, BUN/Creatinine Ratio 19.62, Glucose 178.1 H, Calcium 8.97, Magnesium 1.93, Total Bilirubin 0.18 L, AST 33.8, ALT 41.5 H, Alkaline Phosphatase 62.0, Total Protein 6.94, Albumin 3.98, Globulin 2.96, Albumin/Globulin Ratio 1.34 12/30/17 16:58: WBC 11.11 H, RBC 3.92 L, Hgb 11.6 L, Hct 35.1 L, MCV 89.5, MCH 29.6, MCHC 33.0, RDW Coeff of Tr 15.5 H, Plt Count 130 L, Immature Gran % (Auto ) 0.8, Neut % (Auto) 87.2, Lymph % (Auto) 7.8 L, Pierce % (Auto) 4.0, Eos % (Auto ) 0.1, Baso % (Auto) 0.1, Immature Gran # (Auto) 0.1, Neut # (Auto) 9.7 H, Lymph # (Auto) 0.9, Pierce # (Auto) 0.4, Eos # (Auto) 0.0, Baso # (Auto) 0.0 ASSESSMENT: 1. Acute COPD exacerbation 2. Severe COPD 3. Smoker 4. Hypertension 5. Anemia 6. Anxiety 7. Depression 8. Peripheral arterial disease 9. CAD PLAN: 1. Solu-Cortef IV q.8hr 2. Xanax as she takes at home q.8h AYAD 3. [place] p.r.n. Plan and coordination of the patient's care discussed in the presence of Sheet Folder and nurse. CONDITION: Stable SCRIBED BY: KENISHA FRY, Cushion Cover Inspector scribed while in presence of service performed by Dr. Brito/Rupal Perez APRN on 12/31/17 ([id number])
--- NOTE | 2017-12-31 10:50 | RS.CSNOTE ---
PT Case Note Date of Note: 12/31/17 Note: pt refused to participate with PT this am due to not feeling well and SOA. pt emotional, stating "I am so tired of fighting to breath" Will check with pt this pm.
[2017-12-31] MEDS: XANAX PO SCH ×3 (11:08→23:13)
[2017-12-31] MEDS ORDERED: HUMULIN R ONE (11:41)
[2017-12-31] MEDS: HUMULIN R SUBCUT PRN ×2 (11:48→22:24)
[2017-12-31] MEDS: NORCO 10-325 PO PRN ×2 (11:51→22:22)
[2017-12-31] MEDS: ALBUTEROL 0.083% NEB NEB PRN ×2 (15:00→19:50)
[2017-12-31] MEDS: ZITHROMAX PO SCH (18:38)
[2017-12-31] MEDS ORDERED: ACETAMINOPHEN PO SCH (21:00)
[2017-12-31] MEDS ORDERED: DIPHENHYDRAMINE PO SCH (21:00)
[2017-12-31] MEDS ORDERED: [UNRECOGNIZED DRUG - OTHER] PO SCH (21:00)
[2017-12-31] MEDS: CRESTOR PO SCH (21:26)
[2017-12-31] MEDS: COLACE PO SCH (21:27)
[2017-12-31] MEDS: MICRO-K CAP PO SCH (21:28)
[2017-12-31] MEDS: LOVENOX SUBCUT SCH (21:31)
[2017-12-31] MEDS: BENADRYL PO SCH (22:21)
[2018-01-01] MEDS: PULMICORT 0.5 MG/2 ML NEB SCH ×2 (04:45→18:15)
[2018-01-01] MEDS: XOPENEX 1.25 MG NEB SCH ×4 (04:45→23:25)
[2018-01-01] MEDS: SOLU-MEDROL 125 MG IVP SCH ×5 (05:42→23:00)
[2018-01-01] MEDS: XANAX PO SCH ×4 (05:45→23:43)
[2018-01-01] MEDS: PLETAL PO SCH ×2 (05:46→17:06)
[2018-01-01] MEDS: ALBUTEROL 0.083% NEB NEB PRN ×3 (08:45→19:30)
[2018-01-01] MEDS ORDERED: [UNRECOGNIZED DRUG - OTHER] INH SCH (09:00)
[2018-01-01] MEDS: LYRICA PO SCH ×2 (09:47→20:43)
[2018-01-01] MEDS: NON-FORMULARY MEDICATION (Tiotropium Br/Olodaterol Hcl [Stiolto Respimat Inhal Spray] 2 PU IH SCH (09:47)
[2018-01-01] MEDS: ROCEPHIN 1 GM in SODIUM CHLORIDE 50 ML IV SCH (09:47)
[2018-01-01] MEDS: ASPIRIN CHEWABLE PO SCH (09:47)
[2018-01-01] MEDS: DALIRESP PO SCH (09:48)
[2018-01-01] MEDS: NORVASC PO SCH ×2 (09:48→21:42)
[2018-01-01] MEDS: PLAVIX PO SCH (09:48)
[2018-01-01] MEDS: VITAMIN D PO SCH (09:48)
[2018-01-01] MEDS: COZAAR PO SCH (09:48)
[2018-01-01] MEDS: LEXAPRO PO SCH (09:48)
[2018-01-01] MEDS: FERROUS SULFATE PO SCH ×2 (09:48→20:43)
[2018-01-01] MEDS: DYAZIDE PO SCH (09:49)
[2018-01-01] MEDS: COREG PO SCH ×2 (09:51→17:06)
[2018-01-01] MEDS: CYANOCOBALAMIN 3000 MCG PO SCH (09:52)
[2018-01-01] MEDS: ZITHROMAX PO SCH (09:55)
[2018-01-01] MEDS: HUMULIN R SUBCUT PRN ×2 (11:21→20:41)
[2018-01-01] MEDS: NORCO 10-325 PO PRN (19:32)
[2018-01-01] MEDS: COLACE PO SCH (20:42)
[2018-01-01] MEDS: LOVENOX SUBCUT SCH (20:42)
[2018-01-01] MEDS: MICRO-K CAP PO SCH (20:43)
[2018-01-01] MEDS: CRESTOR PO SCH (20:43)
[2018-01-01] MEDS: BENADRYL PO SCH (20:43)
[2018-01-02] MEDS: NORCO 10-325 PO PRN ×2 (01:50→17:22)
[2018-01-02] MEDS: PULMICORT 0.5 MG/2 ML NEB SCH ×2 (04:55→16:40)
[2018-01-02] MEDS: XOPENEX 1.25 MG NEB SCH ×4 (04:55→23:25)
[2018-01-02] MEDS: PLETAL PO SCH ×2 (05:34→17:17)
[2018-01-02] MEDS: XANAX PO SCH ×4 (05:34→23:35)
[2018-01-02] MEDS: SOLU-MEDROL 125 MG IVP SCH ×4 (06:16→23:35)
[2018-01-02] MEDS: HUMULIN R SUBCUT PRN ×4 (06:53→20:11)
[2018-01-02] MEDS: ALBUTEROL 0.083% NEB NEB PRN ×3 (09:05→20:45)
[2018-01-02] MEDS: ASPIRIN CHEWABLE PO SCH (09:43)
[2018-01-02] MEDS: DYAZIDE PO SCH (09:43)
[2018-01-02] MEDS: ROCEPHIN 1 GM in SODIUM CHLORIDE 50 ML IV SCH (09:43)
[2018-01-02] MEDS: LYRICA PO SCH ×2 (09:43→20:12)
[2018-01-02] MEDS: NON-FORMULARY MEDICATION (Tiotropium Br/Olodaterol Hcl [Stiolto Respimat Inhal Spray] 2 PU IH SCH (09:43)
[2018-01-02] MEDS: PLAVIX PO SCH (09:43)
[2018-01-02] MEDS: ZITHROMAX PO SCH (09:44)
[2018-01-02] MEDS: FERROUS SULFATE PO SCH ×2 (09:44→20:13)
[2018-01-02] MEDS: VITAMIN D PO SCH (09:44)
[2018-01-02] MEDS: DALIRESP PO SCH (09:44)
[2018-01-02] MEDS: LEXAPRO PO SCH (09:44)
[2018-01-02] MEDS: COZAAR PO SCH (09:44)
[2018-01-02] MEDS: COREG PO SCH ×2 (09:44→17:17)
[2018-01-02] MEDS: NORVASC PO SCH ×2 (09:44→20:12)
[2018-01-02] MEDS: CYANOCOBALAMIN 3000 MCG PO SCH (09:45)
[2018-01-02] MEDS: DEXTROSE 5%-1/2NS IV SOLUTION 1,000 ML IV SCH (15:21)
[2018-01-02] MEDS: LOVENOX SUBCUT SCH (20:12)
[2018-01-02] MEDS: COLACE PO SCH (20:12)
[2018-01-02] MEDS: MICRO-K CAP PO SCH (20:13)
[2018-01-02] MEDS: CRESTOR PO SCH (20:13)
[2018-01-02] MEDS: BENADRYL PO SCH (20:13)
[2018-01-02] MEDS ORDERED: MYLICON PO STA (20:49)
[2018-01-02] MEDS: MUCINEX PO SCH (21:02)
[2018-01-03] MEDS: NORCO 10-325 PO PRN ×2 (02:20→20:56)
[2018-01-03] MEDS: DEXTROSE 5%-1/2NS IV SOLUTION 1,000 ML IV SCH ×2 (04:41→16:48)
[2018-01-03] MEDS: PULMICORT 0.5 MG/2 ML NEB SCH ×2 (04:50→17:51)
[2018-01-03] MEDS: XOPENEX 1.25 MG NEB SCH ×3 (04:50→17:52)
[2018-01-03] MEDS: PLETAL PO SCH ×2 (05:32→16:48)
[2018-01-03] MEDS: XANAX PO SCH ×4 (05:33→20:54)
[2018-01-03] MEDS: SOLU-MEDROL 125 MG IVP SCH ×3 (05:49→20:53)
[2018-01-03] MEDS: HUMULIN R SUBCUT PRN ×2 (05:50→12:36)
[2018-01-03] MEDS ORDERED: XANAX PO SCH (09:00)
[2018-01-03] MEDS: NON-FORMULARY MEDICATION (Tiotropium Br/Olodaterol Hcl [Stiolto Respimat Inhal Spray] 2 PU IH SCH (09:05)
[2018-01-03] MEDS: ROCEPHIN 1 GM in SODIUM CHLORIDE 50 ML IV SCH (09:06)
[2018-01-03] MEDS: ASPIRIN CHEWABLE PO SCH (09:06)
[2018-01-03] MEDS: COREG PO SCH ×2 (09:07→16:49)
[2018-01-03] MEDS: NORVASC PO SCH ×2 (09:07→20:54)
[2018-01-03] MEDS: FERROUS SULFATE PO SCH ×2 (09:07→20:54)
[2018-01-03] MEDS: LEXAPRO PO SCH (09:07)
[2018-01-03] MEDS: DYAZIDE PO SCH (09:08)
[2018-01-03] MEDS: DALIRESP PO SCH (09:08)
[2018-01-03] MEDS: VITAMIN D PO SCH (09:09)
[2018-01-03] MEDS: ZITHROMAX PO SCH (09:10)
[2018-01-03] MEDS: MUCINEX PO SCH ×2 (09:10→20:54)
[2018-01-03] MEDS: LYRICA PO SCH ×2 (09:11→21:12)
[2018-01-03] MEDS: PLAVIX PO SCH (09:11)
[2018-01-03] MEDS: COZAAR PO SCH (09:11)
--- NOTE | 2018-01-03 09:11 | PCM.PROG ---
Attending Provider: ATTENDING PROVIDER: Dr. SIDDHARTHA BRITO This patient is seen with Rupal Perez, Nurse Practitioner. DATE OF SERVICE: 01/03/18 SUBJECTIVE: This 72 year old WHITE/ F was hospitalized 12/30/17. The patient is lying in bed resting comfortably. She is still feeling short of breath, has been more anxious likely due to steroids. Will increase Xanax and decrease Solu- Cortef from q.6hr to q.8hr. REVIEW OF SYSTEMS: CONSTITUTIONAL: No night sweats. No fatigue, malaise, lethargy. No fever or chills. HEENT: Eyes: No visual changes. No eye pain. No eye discharge. ENT: No runny nose. No epistaxis. No sinus pain. No odynophagia. No congestion. RESPIRATORY: Cough and shortness of breath. No hemoptysis. CARDIOVASCULAR: No angina symptoms. No CHF symptoms. No atypical chest pain for CAD. No palpitations. No orthopnea.. GASTROINTESTINAL: No abdominal pain. No nausea or vomiting. No diarrhea or constipation. No hematemesis. No hematochezia. GENITOURINARY: No urgency. No frequency. No dysuria. No hematuria. No obstructive symptoms. No discharge. No pain. No significant abnormal bleeding. MUSCULOSKELETAL: No musculoskeletal pain; no joint swelling. NEUROLOGICAL: Awake, alert, oriented to time, place and person. No headache. No neck pain. No syncope. No seizures. No dizziness. PSYCHIATRIC: Anxious. No depression. No suicidal thoughts. No homicidal thoughts. SKIN: No rash. No lesions. No wounds. ENDOCRINE: No unexplained weight loss. No weight gain. HEMATOLOGIC/LYMPHATIC: No anemia. No purpura. No petechiae. No prolonged or excessive bleeding. No palpable lymph nodes. PHYSICAL EXAMINATION: GENERAL: The patient is awake, alert and oriented, lying in bed in no distress. VITAL SIGNS: Temperature 97.4 F, Pulse 96, Respiratory Rate 24, BP 163/78, Pulse Ox 99% HEENT: Head normocephalic, atraumatic. Eyes: Extraocular muscles are intact. Pupils are equal, round and reactive to light and accommodation. Ears: No lesions. Nose appeared normal. Throat: No exudate or erythema. NECK: Supple. No JVD, no carotid bruit. No lymphadenopathy or thyromegaly. LUNGS: Bilateral wheezing, improved. Percussion note normal. Chest symmetrical. HEART: S1, S2, no S3. No murmurs. No cyanosis or clubbing. No ascites. Pulses: Dorsalis pedis and posterior tibial pulses +1 to +2 both sides. ABDOMEN: Soft. Non-tender. Bowel sounds active. No CVA tenderness. No mass felt. EXTREMITIES: No edema. Full range of motion of all extremities, equal. NEUROLOGIC: No focal deficit. Cranial nerves II through XII are grossly intact. No headache, no double vision or headache. SKIN: Not dry. Intact. Turgor-normal. LYMPHATIC: No palpable lymph nodes/no lymphedema. MUSCULOSKELETAL: Normal joints with no swelling. Muscle tone is normal. LAB REVIEW: 01/03/18 04:30 01/03/18 04:30 01/03/18 04:30: Sodium 136.6 L, Potassium 3.99, Chloride 97.8 L, Carbon Dioxide 35.9 H, Anion Gap 6.89, BUN 27.6 H, Creatinine 1.03, Estimated GFR (MDRD) 53.00 , BUN/Creatinine Ratio 26.79, Glucose 158.7 H, Calcium 8.41, Total Bilirubin 0.15 L, AST 19.8, ALT 28.9, Alkaline Phosphatase 48.4 L, Total Protein 5.89 L, Albumin 3.23 L, Globulin 2.66, Albumin/Globulin Ratio 1.21 01/03/18 04:30: WBC 13.99 H, RBC 3.53 L, Hgb 10.1 L, Hct 32.1 L, MCV 90.9, MCH 28.6, MCHC 31.5 L, RDW Coeff of Tr 15.5 H, Plt Count 138 L, Immature Gran % ( Auto) 2.4, Neut % (Auto) 89.1, Lymph % (Auto) 5.8 L, [place] % (Auto) 2.6, Eos % ( Auto) 0.0, Baso % (Auto) 0.1, Immature Gran # (Auto) 0.3, Neut # (Auto) 12.5 H, Lymph # (Auto) 0.8, [place] # (Auto) 0.4, Eos # (Auto) 0.0, Baso # (Auto) 0.0 ASSESSMENT: 1. Acute COPD exacerbation 2. Severe COPD 3. Smoker 4. Hypertension 5. Anemia 6. Anxiety 7. Depression 8. Peripheral arterial disease 9. CAD PLAN: 1. Increase Xanax 0.5 mg t.i.d. AYAD 2. Solu-Cortef decrease to q.8hr Plan and coordination of the patient's care discussed in the presence of Layer Off and nurse. CONDITION: Stable SCRIBED BY: KENISHA FRY Monotyper scribed while in presence of service performed by Dr. Brito/Rupal Perez APRN on 01/03/18 ([id number])
[2018-01-03] MEDS: ALBUTEROL 0.083% NEB NEB PRN ×2 (09:28→14:02)
[2018-01-03] MEDS: CYANOCOBALAMIN 3000 MCG PO SCH (09:32)
--- NOTE | 2018-01-03 10:36 | HP ---
DATE OF SERVICE: 12/31/17 HISTORY OF PRESENT ILLNESS: This 72-year-old white female was hospitalized 10 to 14 days ago for shortness of breath and COPD exacerbation. She does have severe COPD, is oxygen dependent , has recurrent exacerbation. She is unstaged. She reports today stating that she is short of breath having worsening symptoms at the beginning then evening last night and all throughout the day. PAST MEDICAL HISTORY: COPD Smoker Dyslipidemia Coronary artery disease Hypertension Peripheral arterial disease Anxiety Depression Anemia Arthritis Chronic back pain History of hypokalemia Dyslipidemia PAST SURGICAL HISTORY: Status post hysterectomy Coronary artery disease with stent placement REVIEW OF SYSTEMS: CONSTITUTIONAL: Weakness. No night sweats. No malaise, lethargy. No fever or chills. HEENT: Eyes: No visual changes. No eye pain. No eye discharge. ENT: No runny nose. No epistaxis. No sinus pain. No sore throat. No odynophagia. No ear pain. No congestion. RESPIRATORY: Cough and wheezing. No hemoptysis. Positive for shortness of breath. Mild respiratory distress. CARDIOVASCULAR: No angina symptoms. No CHF symptoms. No atypical chest pain for CAD. No palpitations. No PND. No orthopnea. GASTROINTESTINAL: No abdominal pain. No nausea or vomiting. No diarrhea or constipation. No hematemesis. No hematochezia. GENITOURINARY: No urgency. No frequency. No dysuria. No hematuria. No obstructive symptoms. No discharge. No pain. No significant abnormal bleeding. MUSCULOSKELETAL: No musculoskeletal pain. No joint swelling. No arthritis. NEUROLOGICAL: No headache. No neck pain. No syncope. No seizures. No dizziness. PSYCHIATRIC: Not anxious. No depression. No suicidal thoughts. No homicidal thoughts. SKIN: No rash. No lesions. No wounds. ENDOCRINE: No unexplained weight loss. No weight gain. HEMATOLOGIC/LYMPHATIC: No anemia. No purpura. No petechiae. No prolonged or excessive bleeding. No palpable lymph nodes. PERSONAL/FAMILY/SOCIAL HISTORY: The patient is a current daily heavy smoker. She lives with her . No alcohol or ilicit drug use. No family history reported. MEDICATIONS: (HOME) Pletal 100 mg p.o. b.i.d. a.c. Daliresp 500 mcg p.o. daily Crestor 20 mg p.o. bedtime Coreg 25 mg p.o. b.i.d. with meal Cozaar 100 mg p.o. daily Triamterene/Hydrochlorothiazide (Dyazide 37.5-25) one each p.o. daily Cholecalciferol 400 units p.o. daily Xanax 0.25 mg p.o. t.i.d. p.r.n. Cyanocobalamin 3,000 mcg p.o. daily Aspirin 81 mg p.o. daily Plavix 75 mg p.o. daily Ferrous Sulfate 325 mg p.o. b.i.d. Amlodipine 5 mg p.o. b.i.d. [place] one tab p.o. t.i.d. p.r.n. Lyrica 200 mg p.o.b .i.d. Xopenex 1.25 mg neb RT q.8h p.r.n. Lexapro 30 mg p.o. daily Micro-K 10 mEq p.o. bedtime Catapres 0.1 mg p.o. daily p.r.n. Acetaminophen/Diphenydramine two tab p.o. bedtime Docusate Sodium 100 mg two cap p.o. bedtime Keflex 500 mg p.o. t.i.d. Prednisone 20 mg p.o. as directed Tiotropium Br/Olodaterol two puff IH daily ALLERGIES: NKDA PHYSICAL EXAMINATION: GENERAL: The patient in mild respiratory distress. She is alert and oriented times three. HEENT: Head normocephalic, atraumatic. Eyes: Extraocular muscles are intact. Pupils are equal, round and reactive to light and accommodation. Ears: No lesions. Nose appeared normal. Throat: No exudate or erythema. NECK: Supple. No JVD, no carotid bruit. No lymphadenopathy or thyromegaly. LUNGS: Severely diminished breath sounds with significatn inspiratory and expiratory wheezing bilaterally. Percussion note normal. Chest symmetrical. HEART: Heart sounds normal. S1, S2, no S3. No murmurs. No cyanosis or clubbing. No ascites. Pulses: Dorsalis pedis and posterior tibial pulses +1 to +2 bilaterally. ABDOMEN: Soft. Nontender. Bowel sounds active. No CVA tenderness. No mass felt. EXTREMITIES: No leg edema. Full range of motion of all extremities, equal. NEUROLOGIC: No focal deficit. Cranial nerves II through XII are grossly intact. No headache, no double vision or headache. SKIN: Not dry. Intact. Turgor - normal. LYMPHATIC: No palpable lymph nodes/no lymphedema. MUSCULOSKELETAL: Normal joints with no swelling. Muscle tone is normal. Chest x-ray revealed significant COPD, no acute infiltrates. White count 11.11, hemoglobin 11.6, hematocrit 35.1, platelets 130. Sodium 136, potassium 3.5, BUN 15, creatinine 0.79, glucose 178. ABGs on 3L, 02 sat 92, pH 7.14, pc02 56, p02 64, bicarb 36.1, total c02 38, AST 33, ALT 41, total protein 6.9. ASSESSMENT: 1. ACUTE COPD EXACERBATION 2. SHORTNESS OF BREATH 3. SEVERE COPD, OXYGEN DEPENDENT 4. HYPERTENSION 5. ANXIETY 6. DEPRESSION 7. DYSLIPIDEMIA 8. CORONARY ARTERY DISEASE 9. HISTORY OF HYPOKALEMIA 10. ANEMIA 11. SMOKER 12. CHRONIC BACK PAIN PLAN: 1. We will admit 2. Routine telemetry orders 3. CBC, CMP daily 4. Xopenex neb treatments q.6hr p.r.n. 5. Albuterol neb treatments q.6hr [place] 6. Albuterol neb treatments q.2hr p.r.n. 7. Increase Solu-Cortef to 125 mg IV q.6 from q.8 8. Rocephin 1 gm IV daily 9. Zithromax 500 mg p.o. daily times three days 10. Oxygen at 1 to 3L as needed to keep sat greater than 90 11. Continue all home medications 12. Regular diet 13. Toradol 30 mg IV q.8hr p.r.n. for pain 14. Will follow closely TIME SPENT: More than 70 minutes. MTDD
--- NOTE | 2018-01-03 12:42 | PN ---
DATE OF SERVICE: 12/31/17 SUBJECTIVE: The patient was seen and examined for acute bronchitis, chronic lung disease. The patient's condition has improved. She is feeling better. I strongly advised her to quit smoking. She had recent hospitalization. She was seen and examined with the nurse practitioner. TIME SPENT: More than 30 minutes. Plan and coordination of the patient's care discussed in the presence of nurse. KEVIN
--- NOTE | 2018-01-03 14:24 | PN ---
DATE OF SERVICE: 01/01/18 SUBJECTIVE: Patient was hospitalized with acute bronchitis and COPD. The patient's condition has improved. The coughing is much less. Her oxygen saturation is 100% on 2L. The patient is anxious and had panic attack problems. She has been given extra Xanax. REVIEW OF SYSTEMS: CONSTITUTIONAL: No night sweats. No fatigue, malaise, lethargy. No fever or chills. HEENT: Eyes: No visual changes. No eye pain. No eye discharge. ENT: No runny nose. No epistaxis. No sinus pain. No sore throat. No odynophagia. No congestion. RESPIRATORY: No cough, no congestion. No hemoptysis. No shortness of breath. CARDIOVASCULAR: No angina symptoms. No CHF symptoms. No atypical chest pain for CAD. No palpitations. No orthopnea. GASTROINTESTINAL: No abdominal pain. No nausea or vomiting. No diarrhea or constipation. No hematemesis. No hematochezia. GENITOURINARY: No urgency. No frequency. No dysuria. No hematuria. No obstructive symptoms. No discharge. No pain. No significant abnormal bleeding. MUSCULOSKELETAL: No musculoskeletal pain; no joint swelling. NEUROLOGICAL: No headache. No neck pain. No syncope. No seizures. No dizziness. PSYCHIATRIC: Anxiety. SKIN: No rash. No lesions. No wounds. ENDOCRINE: No unexplained weight loss. No weight gain. HEMATOLOGIC/LYMPHATIC: No anemia. No purpura. No petechiae. No prolonged or excessive bleeding. No palpable lymph nodes. PHYSICAL EXAMINATION: GENERAL: The patient is alert and oriented to time, place and person. VITAL SIGNS: Temp 97.5, pulse 87, respiratory rate 22, blood pressure 160/70, pulse ox 100% HEENT: Head normocephalic, atraumatic. Eyes: Extraocular muscles are intact. Pupils are equal, round and reactive to light and accommodation. Ears: No lesions. Nose appeared normal. Throat: No exudate or erythema. NECK: Supple. No JVD, no carotid bruit. No lymphadenopathy or thyromegaly. LUNGS: Clear to auscultation. Percussion note normal. Chest symmetrical. HEART: S1, S2, no S3. No murmurs. No cyanosis or clubbing. No ascites. Pulses: Dorsalis pedis and posterior tibial pulses +1 to +2 both sides. ABDOMEN: Soft. Nontender. Bowel sounds active. No CVA tenderness. No mass felt. EXTREMITIES: No edema. Full range of motion of all extremities, equal. NEUROLOGIC: No focal deficit. Cranial nerves II through XII are grossly intact. No headache, no double vision or headache. SKIN: Not dry. Intact. Turgor - normal. LYMPHATIC: No palpable lymph nodes/no lymphedema. MUSCULOSKELETAL: Normal joints with no swelling. Muscle tone is normal. LABS: Hemoglobin 9.4, hematocrit 29, WBC 15,000, normal differential, creatinine 1.3, BUN 30, potassium 4.1 ASSESSMENT: 1. ACUTE BRONCHITIS, PNEUMONITIS. SEEMS TO BE RESOLVING 2. COPD 3. PERIPHERAL ARTERIAL DISEASE 4. ANXIETY DISORDER WITH DEPRESSION WITH PANIC TYPE OF DISORDER PLAN: 1. Continue Xanax, antibiotics, neb treatments, steroids 2. Counseling for smoking done, patient's main problem is continued smoking with continued deterioration of COPD TIME SPENT: More than 30 minutes. Plan and coordination of the patient's care discussed in the presence of nurse. KEVIN
--- NOTE | 2018-01-03 14:38 | PN ---
DATE OF SERVICE: 01/02/18 SUBJECTIVE: Patient is doing well. She was very panic ridden and mildly depressed but a lot better today. She is stable. REVIEW OF SYSTEMS: CONSTITUTIONAL: No night sweats. No fatigue, malaise, lethargy. No fever or chills. HEENT: Eyes: No visual changes. No eye pain. No eye discharge. ENT: No runny nose. No epistaxis. No sinus pain. No sore throat. No odynophagia. No congestion. RESPIRATORY: No cough, no congestion. No hemoptysis. No shortness of breath. CARDIOVASCULAR: Respiratory rate is stable. Oxygen saturation with 2L at 98%. No cardiac arrythmias noted. GASTROINTESTINAL: No abdominal pain. No nausea or vomiting. No diarrhea or constipation. No hematemesis. No hematochezia. GENITOURINARY: No urgency. No frequency. No dysuria. No hematuria. No obstructive symptoms. No discharge. No pain. No significant abnormal bleeding. MUSCULOSKELETAL: No musculoskeletal pain; no joint swelling. NEUROLOGICAL: No headache. No neck pain. No syncope. No seizures. No dizziness. PSYCHIATRIC: Not anxious. No depression. No suicidal thoughts. No homicidal thoughts. SKIN: No rash. No lesions. No wounds. ENDOCRINE: No unexplained weight loss. No weight gain. HEMATOLOGIC/LYMPHATIC: No anemia. No purpura. No petechiae. No prolonged or excessive bleeding. No palpable lymph nodes. PHYSICAL EXAMINATION: HEENT: Head normocephalic, atraumatic. Eyes: Extraocular muscles are intact. Pupils are equal, round and reactive to light and accommodation. Ears: No lesions. Nose appeared normal. Throat: No exudate or erythema. NECK: Supple. No JVD, no carotid bruit. No lymphadenopathy or thyromegaly. LUNGS: Decreased breath sounds with mild expiratory wheeze. HEART: S1, S2, no S3. Pulses: Dorsalis pedis and posterior tibial pulses +1 to +2 both sides. ABDOMEN: Soft. Nontender. Bowel sounds active. No CVA tenderness. No mass felt. EXTREMITIES: No edema. Full range of motion of all extremities, equal. NEUROLOGIC: No focal deficit. Cranial nerves II through XII are grossly intact. No headache, no double vision or headache. SKIN: Not dry. Intact. Turgor - normal. LYMPHATIC: No palpable lymph nodes/no lymphedema. MUSCULOSKELETAL: Normal joints with no swelling. Muscle tone is normal. ASSESSMENT: 1. BRONCHITIS SEEMS TO BE RESOLVING 2. PANIC DISORDER UNDER CONTROL WITH XANAX PLAN: 1. Again counseling for smoking done. 2. Pulmonary rehab discussed. The patient is not suicidal or homicidal. She wants DNR status, discussed. 3. Condition, stable. TIME SPENT: More than 30 minutes. Plan and coordination of the patient's care discussed in the presence of nurse. KEVIN
--- NOTE | 2018-01-03 14:45 | PN ---
DATE OF SERVICE: 01/03/18 SUBJECTIVE: The patient is doing well. She is still apprehensive to some extent with anxiety. PHYSICAL EXAMINATION: HEENT: Head normocephalic, atraumatic. Eyes: Extraocular muscles are intact. Pupils are equal, round and reactive to light and accommodation. Ears: No lesions. Nose appeared normal. Throat: No exudate or erythema. NECK: Supple. No JVD, no carotid bruit. No lymphadenopathy or thyromegaly. LUNGS: Decreased breath sounds but clear. HEART: S1, S2, no S3. No murmurs. No cyanosis or clubbing. No ascites. Pulses: Dorsalis pedis and posterior tibial pulses +1 to +2 both sides. ABDOMEN: Soft. Bowel sounds active. EXTREMITIES: No edema. Full range of motion of all extremities, equal. NEUROLOGIC: No focal deficit. Cranial nerves II through XII are grossly intact. No headache, no double vision or headache. SKIN: Not dry. Intact. Turgor - normal. LYMPHATIC: No palpable lymph nodes/no lymphedema. MUSCULOSKELETAL: Normal joints with no swelling. Muscle tone is normal. ASSESSMENT: 1. BRONCHITIS SEEMS TO BE UNDER CONTROL 2. MAIN PROBLEM IS ANXIETY WITH MILD DEPRESSION. SHE DOES NOT USE ADDERALL. The patient was seen and examined by the nurse practitioner. TIME SPENT: More than 30 minutes. Plan and coordination of the patient's care discussed in the presence of nurse. KEVIN
[2018-01-03] MEDS ORDERED: HALDOL PO STA (15:03)
[2018-01-03] MEDS: NYSTATIN ORAL SUSP PO SCH ×2 (16:48→20:53)
[2018-01-03] MEDS: LOVENOX SUBCUT SCH (20:53)
[2018-01-03] MEDS: MICRO-K CAP PO SCH (20:54)
[2018-01-03] MEDS: CRESTOR PO SCH (20:54)
[2018-01-03] MEDS: BENADRYL PO SCH (20:55)
[2018-01-03] MEDS: COLACE PO SCH (20:55)
[2018-01-04] MEDS: XOPENEX 1.25 MG NEB SCH ×5 (01:31→23:10)
[2018-01-04] MEDS: PULMICORT 0.5 MG/2 ML NEB SCH ×2 (04:40→17:49)
[2018-01-04] MEDS: PLETAL PO SCH ×2 (05:41→16:46)
[2018-01-04] MEDS: SOLU-MEDROL 125 MG IVP SCH ×3 (05:41→21:34)
[2018-01-04] MEDS: NYSTATIN ORAL SUSP PO SCH ×4 (05:41→21:33)
[2018-01-04] MEDS: DEXTROSE 5%-1/2NS IV SOLUTION 1,000 ML IV SCH ×2 (06:09→17:21)
[2018-01-04] MEDS: ROCEPHIN 1 GM in SODIUM CHLORIDE 50 ML IV SCH (09:08)
[2018-01-04] MEDS: LYRICA PO SCH ×2 (09:11→21:34)
[2018-01-04] MEDS: DYAZIDE PO SCH (09:11)
[2018-01-04] MEDS: XANAX PO SCH ×3 (09:11→21:35)
[2018-01-04] MEDS: PLAVIX PO SCH (09:12)
[2018-01-04] MEDS: VITAMIN D PO SCH (09:12)
[2018-01-04] MEDS: LEXAPRO PO SCH (09:12)
[2018-01-04] MEDS: MUCINEX PO SCH ×2 (09:12→21:35)
[2018-01-04] MEDS: COREG PO SCH ×2 (09:13→16:46)
[2018-01-04] MEDS: ASPIRIN CHEWABLE PO SCH (09:13)
[2018-01-04] MEDS: CATAPRES PO SCH ×2 (09:13→21:34)
[2018-01-04] MEDS: DALIRESP PO SCH (09:13)
[2018-01-04] MEDS: COZAAR PO SCH (09:14)
[2018-01-04] MEDS: FERROUS SULFATE PO SCH ×2 (09:14→21:34)
[2018-01-04] MEDS: NON-FORMULARY MEDICATION (Tiotropium Br/Olodaterol Hcl [Stiolto Respimat Inhal Spray] 2 PU IH SCH (09:14)
[2018-01-04] MEDS: NORVASC PO SCH ×2 (09:14→21:34)
[2018-01-04] MEDS: CYANOCOBALAMIN 3000 MCG PO SCH (09:20)
--- NOTE | 2018-01-04 09:27 | PCM.PROG ---
Attending Provider: ATTENDING PROVIDER: Dr. SIDDHARTHA BRITO DATE OF SERVICE: 01/04/18 SUBJECTIVE: This 72 year old WHITE/ F was hospitalized 12/30/17 COPD and acute exacerbation. The patient's main problem is panic disorder with mild depression. She is resting this morning. Haldol seems to have helped. I had a long talk with the patient last evening as she is afraid of dying. Also, existing problem is high systolic blood pressure, high BUN with normal creatinine. REVIEW OF SYSTEMS: CONSTITUTIONAL: No night sweats. No fatigue, malaise, lethargy. No fever or chills. HEENT: Eyes: No visual changes. No eye pain. No eye discharge. ENT: No runny nose. No epistaxis. No sinus pain. No odynophagia. No congestion. RESPIRATORY: No cough, no congestion at the present time. No hemoptysis. No shortness of breath. CARDIOVASCULAR: No angina symptoms. No CHF symptoms. No atypical chest pain for CAD. No palpitations. No orthopnea.. GASTROINTESTINAL: No abdominal pain. No nausea or vomiting. No diarrhea or constipation. No hematemesis. No hematochezia. GENITOURINARY: No urgency. No frequency. No dysuria. No hematuria. No obstructive symptoms. No discharge. No pain. No significant abnormal bleeding. MUSCULOSKELETAL: No musculoskeletal pain; no joint swelling. NEUROLOGICAL: Awake, alert, oriented to time, place and person. No headache. No neck pain. No syncope. No seizures. No dizziness. PSYCHIATRIC: Not anxious. No depression. No suicidal thoughts. No homicidal thoughts. SKIN: No rash. No lesions. No wounds. ENDOCRINE: No unexplained weight loss. No weight gain. HEMATOLOGIC/LYMPHATIC: No anemia. No purpura. No petechiae. No prolonged or excessive bleeding. No palpable lymph nodes. PHYSICAL EXAMINATION: GENERAL: The patient is awake, alert and oriented, lying flat in bed in no distress. VITAL SIGNS: Temperature 98.0 F, Pulse 90, Respiratory Rate 16, BP 196/82, Pulse Ox 99% HEENT: Head normocephalic, atraumatic. Eyes: Extraocular muscles are intact. Pupils are equal, round and reactive to light and accommodation. Ears: No lesions. Nose appeared normal. Throat: No exudate or erythema. NECK: Supple. No JVD, no carotid bruit. No lymphadenopathy or thyromegaly. LUNGS: Decreased breath sounds but clear to auscultation. Percussion note normal. Chest symmetrical. HEART: S1, S2, no S3. No murmurs. No cyanosis or clubbing. No ascites. Pulses: Dorsalis pedis and posterior tibial pulses +1 to +2 both sides. ABDOMEN: Soft. Non-tender. Bowel sounds active. No CVA tenderness. No mass felt. EXTREMITIES: No edema. Full range of motion of all extremities, equal. NEUROLOGIC: No focal deficit. Cranial nerves II through XII are grossly intact. No headache, no double vision or headache. SKIN: Warm and dry. Intact. Turgor-normal. LYMPHATIC: No palpable lymph nodes/no lymphedema. MUSCULOSKELETAL: Normal joints with no swelling. Muscle tone is normal. LAB REVIEW: 01/04/18 05:18 01/04/18 05:18 01/04/18 05:18: Sodium 135.0 L, Potassium 3.40 L, Chloride 93.0 L, Carbon Dioxide 40.0 H, Anion Gap 5.40, BUN 21.0 H, Creatinine 0.70, Estimated GFR (MDRD ) 82.00, BUN/Creatinine Ratio 30.00, Glucose 165.0 H, Calcium 8.60, Total Bilirubin 0.30, AST 18.0, ALT 28.0, Alkaline Phosphatase 48.0 L, Total Protein 6.30, Albumin 3.40 L, Globulin 2.90, Albumin/Globulin Ratio 1.17 01/04/18 05:18: WBC 12.17 H, RBC 3.86 L, Hgb 11.0 L, Hct 34.5 L, MCV 89.4, MCH 28.5, MCHC 31.9, RDW Coeff of Tr 14.9 H, Plt Count 147, Immature Gran % (Auto) 2.7, Neut % (Auto) 83.4, Lymph % (Auto) 9.6 L, [place] % (Auto) 4.1, Eos % (Auto) 0.0, Baso % (Auto) 0.2, Immature Gran # (Auto) 0.3, Neut # (Auto) 10.2 H, Lymph # (Auto) 1.2, [place] # (Auto) 0.5, Eos # (Auto) 0.0, Baso # (Auto) 0.0 01/03/18 14:55: Puncture Site R rad, O2 Saturation 92.0 L, ABG pH 7.397, ABG pCO2 58.8 H, ABG pO2 65.0 L, ABG HCO3 36.2 H, ABG Total CO2 38 H, ABG Base Excess 11 H, Miki Test +, O2 Delivery Device Nc, Oxygen Liter Flow 2.00 ASSESSMENT: 1. Acute bronchitis seems to be resolving. 2. Continued smoking; counseling for smoking done. 3. Peripheral arterial disease. 4. Panic disorder with depression. No suicidal or homicidal ideations. She wants to live. PLAN: 1. Continue Xanax 0.5 mg t.i.d. 2. Catapres one b.i.d. 3. Continue IV fluids. Plan and coordination of the patient's care discussed in the presence of Net Programmer Analyst and nurse. CONDITION: Stable SCRIBED BY: KENISHA FRY, Slasher Runner scribed while in presence of service performed by Dr. SIDDHARTHA BRITO on 01/04/18 ([id number])
[2018-01-04] MEDS: HUMULIN R SUBCUT PRN ×3 (11:33→21:33)
[2018-01-04] MEDS: LOVENOX SUBCUT SCH (21:33)
[2018-01-04] MEDS: COLACE PO SCH (21:34)
[2018-01-04] MEDS: BENADRYL PO SCH (21:34)
[2018-01-04] MEDS: MICRO-K CAP PO SCH (21:34)
[2018-01-04] MEDS: CRESTOR PO SCH (21:34)
[2018-01-05] MEDS: PULMICORT 0.5 MG/2 ML NEB SCH (04:55)
[2018-01-05] MEDS: XOPENEX 1.25 MG NEB SCH ×2 (04:55→11:15)
[2018-01-05] MEDS: SOLU-MEDROL 125 MG IVP SCH ×2 (05:43→13:11)
[2018-01-05] MEDS: PLETAL PO SCH (05:46)
[2018-01-05] MEDS: NYSTATIN ORAL SUSP PO SCH ×2 (05:47→12:28)
[2018-01-05] MEDS: HUMULIN R SUBCUT PRN ×2 (05:48→12:33)
[2018-01-05 06:00] VITALS: BP 158/68; TEMP 98.5
[2018-01-05] MEDS: DEXTROSE 5%-1/2NS IV SOLUTION 1,000 ML IV SCH (06:41)
[2018-01-05] MEDS: ROCEPHIN 1 GM in SODIUM CHLORIDE 50 ML IV SCH (09:20)
[2018-01-05] MEDS: LEXAPRO PO SCH (09:21)
[2018-01-05] MEDS: XANAX PO SCH ×2 (09:21→15:21)
[2018-01-05] MEDS: LYRICA PO SCH (09:21)
[2018-01-05] MEDS: CATAPRES PO SCH (09:23)
[2018-01-05] MEDS: DYAZIDE PO SCH (09:23)
[2018-01-05] MEDS: COREG PO SCH (09:23)
[2018-01-05] MEDS: NORVASC PO SCH (09:23)
[2018-01-05] MEDS: COZAAR PO SCH (09:23)
[2018-01-05] MEDS: NON-FORMULARY MEDICATION (Tiotropium Br/Olodaterol Hcl [Stiolto Respimat Inhal Spray] 2 PU IH SCH (09:24)
[2018-01-05] MEDS: DALIRESP PO SCH (09:27)
[2018-01-05] MEDS: PLAVIX PO SCH (09:27)
[2018-01-05] MEDS: VITAMIN D PO SCH (09:27)
[2018-01-05] MEDS: FERROUS SULFATE PO SCH (09:27)
[2018-01-05] MEDS: MUCINEX PO SCH (09:27)
[2018-01-05] MEDS: ASPIRIN CHEWABLE PO SCH (09:27)
[2018-01-05] MEDS: CYANOCOBALAMIN 3000 MCG PO SCH (09:28)
[2018-01-05] MEDS: NORCO 10-325 PO PRN (13:12)
[2018-01-05] MEDS ORDERED: K-DUR PO STA (13:26)
--- NOTE | 2018-01-05 14:38 | CM.DICTOOL ---
ADMISSION: 12/30/17 19:15 DISCHARGE: 01/05/18 FINAL DIAGNOSIS ACUTE BRONCHITIS COPD EXACERBATION - ACUTE DEPRESSION/ANXIETY/PANIC EPISODES CHRONIC RESPIRATORY FAILURE (OXYGEN DEPENDENT) PULMONARY NODULE, [address] HYPERTENSION CAD S/P STENT APPLICATION CAROTID OCCLUSIVE DISEASE DYSLIPIDEMIA ANEMIA PERIPHERAL ARTERIAL DISEASE NEUROPATHY VASCULAR DEMENTIA DJD SPINE OSTEOARTHRITIS ABDOMINAL AORTIC ANEURYSM, 1997 HYSTERECTOMY, 1989 AORTOILIAC BYPASS CARDIAC STENT APPLICATION CHRONIC SMOKER LAST VITALS Temp Pulse Resp BP Pulse Ox 98.5 F 76 22 158/68 H 99 01/05/18 05:59 01/05/18 05:59 01/05/18 05:59 01/05/18 05:59 01/05/18 05:59 TAKE THESE MEDICATIONS AT HOME Hydrocodone Bitart/Acetaminophen ([place] 10-325) 1 tab PO TID PRN PRN Reason: MODERATE PAIN Last Admin: 01/03/18 20:56 Dose: 1 tab Alprazolam (Xanax) 0.5 mg PO QID PRN Last Admin: 01/05/18 09:21 Dose: 0.5 mg Amlodipine Besylate (Norvasc) 5 mg PO BID FORMERLY [facility], [facility] Last Admin: 01/05/18 09:23 Dose: 5 mg Aspirin (Aspirin Chewable) 81 mg PO DAILY [facility], [facility] Last Admin: 01/05/18 09:27 Dose: 81 mg Carvedilol (Coreg) 25 mg PO BIDWM [facility], [facility] Last Admin: 01/05/18 09:23 Dose: 25 mg Cholecalciferol (Vitamin D) 400 unit PO DAILY [facility], [facility] Last Admin: 01/05/18 09:27 Dose: 400 unit Cilostazol (Pletal) 100 mg PO BIDAC [facility], [facility] Last Admin: 01/05/18 05:46 Dose: 100 mg Clonidine (Catapres) 0.1 mg PO DAILY PRN PRN Reason: Blood Pressure Last Admin: 01/04/18 06:11 Dose: 0.1 mg Clonidine (Catapres) 0.1 mg PO BID [facility], [facility] Last Admin: 01/05/18 09:23 Dose: 0.1 mg Clopidogrel Bisulfate (Plavix) 75 mg PO DAILY [facility], [facility] Last Admin: 01/05/18 09:27 Dose: 75 mg Docusate Sodium (Colace) 200 mg PO BEDTIME [facility] Last Admin: 01/04/18 21:34 Dose: 200 mg Escitalopram Oxalate (Lexapro) 30 mg PO DAILY [facility] Last Admin: 01/05/18 09:21 Dose: 30 mg Ferrous Sulfate (Ferrous Sulfate) 324 mg PO BID AYAD Last Admin: 01/05/18 09:27 Dose: 324 mg Levalbuterol HCl (Xopenex 1.25 Mg) 1 vial NEB RTQ8H PRN Last Admin: 01/05/18 11:15 Dose: 1 vial Losartan Potassium (Cozaar) 100 mg PO DAILY AYAD Last Admin: 01/05/18 09:23 Dose: 100 mg Non-Formulary Medication (Cyanocobalamin (Vitamin B-12) [Vitamin B-12]) 3,000 mcg PO DAILY AYAD Last Admin: 01/05/18 09:28 Dose: Not Given Non-Formulary Medication (Tiotropium Br/Olodaterol Hcl [Stiolto Respimat Inhal [place]]) 2 puff IH DAILY [facility], [facility] Last Admin: 01/05/18 09:24 Dose: 2 puff Potassium Chloride (Micro-K Cap) 10 meq PO BEDTIME AYAD Last Admin: 01/04/18 21:34 Dose: 10 meq Pregabalin (Lyrica) 200 mg PO BID [facility] Last Admin: 01/05/18 09:21 Dose: 200 mg Roflumilast (Daliresp) 500 mcg PO DAILY [facility] Last Admin: 01/05/18 09:27 Dose: 500 mcg Rosuvastatin Calcium (Crestor) 20 mg PO BEDTIME AYAD Last Admin: 01/04/18 21:34 Dose: 20 mg Triamterene/HCTZ (Dyazide) 1 cap PO DAILY [facility] Last Admin: 01/05/18 09:23 Dose: 1 cap ALLERGIES No Known Allergies Allergy (Verified 12/30/17 16:42) Discontinued Medications Albuterol/Ipratropium (Duoneb) 1 vial NEB ONCE STA Stop: 12/30/17 17:17 Last Admin: 12/30/17 17:24 Dose: 1 vial Alprazolam (Xanax) 0.25 mg PO TID PRN PRN Reason: Anxiety Last Admin: 12/30/17 23:46 Dose: 0.25 mg Alprazolam (Xanax) 0.25 mg PO Q6HR AYAD Last Admin: 01/03/18 05:33 Dose: 0.25 mg Alprazolam (Xanax) 0.25 mg PO ONCE STA Stop: 12/31/17 08:24 Last Admin: 12/31/17 09:11 Dose: 0.25 mg Alprazolam (Xanax) 0.5 mg PO TID AYAD Azithromycin (Zithromax) 500 mg PO ONCE STA Stop: 12/30/17 19:08 Last Admin: 12/30/17 20:46 Dose: 500 mg Azithromycin (Zithromax) 250 mg PO DAILY AYAD Stop: 01/03/18 09:01 Last Admin: 01/03/18 09:10 Dose: 250 mg Budesonide (Pulmicort 0.25 Mg/2 Ml) 1 vial NEB ONCE STA Stop: 12/30/17 17:19 Last Admin: 12/30/17 20:22 Dose: Not Given Enoxaparin Sodium (Lovenox) 40 mg SUBCUT DAILY [facility] Last Admin: 12/30/17 20:43 Dose: 40 mg Haloperidol (Haldol) 0.25 mg PO ONCE STA Stop: 01/03/18 15:04 Last Admin: 01/03/18 15:12 Dose: 0.25 mg Levalbuterol HCl (Xopenex 0.63 Mg) 1 vial NEB RTQ6H PRN PRN Reason: Wheezing Methylprednisolone Sodium Succinate (Solu-Medrol 125 Mg) 125 mg IVP ONCE STA Stop: 12/30/17 18:05 Last Admin: 12/30/17 18:08 Dose: Not Given Methylprednisolone Sodium Succinate (Solu-Medrol 125 Mg) 125 mg IVP Q8HR [facility] Last Admin: 12/31/17 05:55 Dose: 125 mg Methylprednisolone Sodium Succinate (Solu-Medrol 125 Mg) 125 mg IVP Q6HR [facility] Last Admin: 01/03/18 05:49 Dose: 125 mg Non-Formulary Medication (Acetaminophen/Diphenhydramine [Acetaminophen Pm Geltab ]) 2 tab PO BEDTIME [facility] Last Admin: 12/30/17 23:46 Dose: Not Given Non-Formulary Medication (Fluticasone/Umeclidin/Vilanter [Trelegy Ellipta 100- 62.5-25]) 1 each IH BID [facility] Last Admin: 12/31/17 22:00 Dose: 1 each Simethicone (Mylicon) 80 mg PO ONCE STA Stop: 01/02/18 20:50 Last Admin: 01/02/18 21:02 Dose: 80 mg Sodium Chloride (Saline Flush) 1 syr IVF Q8HR AYAD Last Admin: 01/02/18 13:16 Dose: 1 syr NEW PRESCRIPTIONS: NEW MEDICATIONS: 1. PREDNISONE 10MG TAKE 1 TABLET 2 TIMES A DAY FOR 5 DAYS THEN DAILY FOR 5 DAYS. TAKE WITH FOOD. 2. KEFLEX 500MG TAKE 1 CAPSULE 2 TIMES A DAY FOR 5 DAYS. SMOKING: STOP SMOKING. AVOID SECOND HAND SMOKE DISEASE SPECIFIC EDUCATION: COPD MEDICATIONS SMOKING CESSATION AVOIDANCE OF SECOND HAND SMOKE ACTIVITY DIET LAB REVIEW: 01/05/18 04:15 01/05/18 04:15 01/05/18 04:15: Sodium 132.6 L, Potassium 3.28 L, Chloride 90.0 L, Carbon Dioxide 40.4 H*, Anion Gap 5.48, BUN 21.9 H, Creatinine 0.72, Estimated GFR ( MDRD) 80.00, BUN/Creatinine Ratio 30.41, Glucose 160.7 H, Calcium 8.12 L, Total Bilirubin 0.29, AST 15.4, ALT 21.1, Alkaline Phosphatase 37.3 L, Total Protein 5.33 L, Albumin 2.95 L, Globulin 2.38, Albumin/Globulin Ratio 1.23 01/05/18 04:15: WBC 6.95 D, RBC 3.36 L, Hgb 9.6 L, Hct 29.5 L, MCV 87.8, MCH 28.6, MCHC 32.5, RDW Coeff of Tr 14.6, Plt Count 115 L, Immature Gran % (Auto) 2.4, Neut % (Auto) 85.4, Lymph % (Auto) 8.5 L, [place] % (Auto) 3.7, Eos % (Auto) 0.0, Baso % (Auto) 0.0, Immature Gran # (Auto) 0.2, Neut # (Auto) 5.9, Lymph # ( Auto) 0.6, [place] # (Auto) 0.3 L, Eos # (Auto) 0.0, Baso # (Auto) 0.0 PLAN: DISCHARGE HOME TODAY. 01/05/18 CONTINUE HOME MEDICATIONS PER NURSING SHEETS EXCEPT: 1. MAY TAKE HOME XANAX 4 TIMES A DAY NEEDED FOR ANXIETY. NEW MEDICATIONS: 1. PREDNISONE 10MG TAKE 1 TABLET 2 TIMES A DAY FOR 5 DAYS THEN DAILY FOR 5 DAYS. TAKE WITH FOOD. 2. KEFLEX 500MG TAKE 1 CAPSULE 2 TIMES A DAY FOR 5 DAYS. DIET TOLERATED. ACTIVITY GRADUALLY RESUME TO YOUR TOLERANCE. STOP SMOKING. AVOID SECOND HAND SMOKE. FOLLOW UP WITH DR. BRITO ON Wednesday AT 1100. IF UNABLE TO KEEP APPOINTMENT, PLEASE CALL TO RESCHEDULE. [phone]. PATIENT IS A DO NOT INTUBATE, CPR ONLY. SITTING UP IN BED. ALERT AND ORIENTED X 4. STATES FEELING BETTER. DR. BRITO INTO SEE PATIENT. PLAN OF CARE DISCUSSED PER DR. BRITO INCLUDING DISCHARGE, MEDICATIONS, ACTIVITY, DIET AND FOLLOW UP APPOINTMENT. VITAL SIGNS ARE STABLE. HAS BEEN AFEBRILE. POX 99% ON O2 AT 2.5L/C. HEART TONES ARE REGULAR WITH TELEMETRY REVEALING SINUS RHYTHM. NO C/O PAIN OR DISCOMFORT. LUNGS WITH WHEEZES. NO COUGH NOTED. HAS DYSPNEA WITH AND WITHOUT ACTIVITY. ABDOMEN IS SOFT , NON-TENDER WITH BOWEL SOUNDS POSITIVE IN ALL 4 QUADS. LAST BM 01/03/18. PEDAL PULSES POSITIVE WITHOUT EDEMA. HAS IV OF D51/2NS AT 83ML/HR IN LEFT FOREARM SITE IS CLEAR. IS INDEPENDENT WITH ACTIVITIES OF DAILY LIVING WITH STEADY SLOW GAIT. DR. SIDDHARTHA BRITO MD Bertha TRAN APRN
--- NOTE | 2018-01-06 14:55 | PN ---
DATE OF SERVICE: 01/05/18 SUBJECTIVE: The patient is doing very well. Oxygen saturation is 99% with 2L. She is sitting up and oriented to time, place and person. No suicidal or homicidal ideations. She wants to leave, in fact, she is afraid to . I had to explain to her that her cardiovascular and respiratory status is stable. Bronchitis is under control. Counseling for smoking is done. Strongly advised to quit smoking. REVIEW OF SYSTEMS: CONSTITUTIONAL: No night sweats. No fatigue, malaise, lethargy. No fever or chills. HEENT: Eyes: No visual changes. No eye pain. No eye discharge. ENT: No runny nose. No epistaxis. No sinus pain. No sore throat. No odynophagia. No congestion. RESPIRATORY: No cough, no congestion. No hemoptysis. No shortness of breath. CARDIOVASCULAR: No angina symptoms. No CHF symptoms. No atypical chest pain for CAD. No palpitations. No orthopnea. GASTROINTESTINAL: No abdominal pain. No nausea or vomiting. No diarrhea or constipation. No hematemesis. No hematochezia. GENITOURINARY: No urgency. No frequency. No dysuria. No hematuria. No obstructive symptoms. No discharge. No pain. No significant abnormal bleeding. MUSCULOSKELETAL: No musculoskeletal pain; no joint swelling. NEUROLOGICAL: No headache. No neck pain. No syncope. No seizures. No dizziness. PSYCHIATRIC: Not anxious. No depression. No suicidal thoughts. No homicidal thoughts. SKIN: No rash. No lesions. No wounds. ENDOCRINE: No unexplained weight loss. No weight gain. HEMATOLOGIC/LYMPHATIC: No anemia. No purpura. No petechiae. No prolonged or excessive bleeding. No palpable lymph nodes. PHYSICAL EXAMINATION: HEENT: Head normocephalic, atraumatic. Eyes: Extraocular muscles are intact. Pupils are equal, round and reactive to light and accommodation. Ears: No lesions. Nose appeared normal. Throat: No exudate or erythema. NECK: Supple. No JVD, no carotid bruit. No lymphadenopathy or thyromegaly. LUNGS: Decreased breath sounds. Good air entry. HEART: S1, S2. No murmurs. No cyanosis or clubbing. No ascites. Pulses: Dorsalis pedis and posterior tibial pulses +1 to +2 both sides. ABDOMEN: Soft. Nontender. Bowel sounds active. No CVA tenderness. No mass felt. EXTREMITIES: No edema. Full range of motion of all extremities, equal. NEUROLOGIC: No focal deficit. Cranial nerves II through XII are grossly intact. No headache, no double vision or headache. SKIN: Not dry. Intact. Turgor - normal. LYMPHATIC: No palpable lymph nodes/no lymphedema. MUSCULOSKELETAL: Normal joints with no swelling. Muscle tone is normal. ASSESSMENT: 1. ACUTE BRONCHITIS 2. SEVERE CHRONIC LUNG DISEASE 3. PERIPHERAL ARTERIAL DISEASE 4. DEPRESSION 5. PANIC DISORDER, NO SUICIDAL OR HOMICIDAL IDEATIONS I had a talk with her and the who is very understanding. He knows that she needs to quit smoking also. I advised the patient not to abuse any medication. Xanax has been increased to 0.25 QID and advised to walk, continue pulmonary rehab. The patient had done very well for three months and kept herself out of the hospital because of rehab. Advised to continue rehab. TIME SPENT: More than 30 minutes. Plan and coordination of the patient's care discussed in the presence of nurse. KEVIN
--- NOTE | 2018-01-06 15:05 | DS ---
DATE OF DISCHARGE: 01/05/18 DATE OF SERVICE: 01/05/18 DIET INSTRUCTIONS: Eat regularly DISEASE SPECIFIC EDUCATION: Advised to quit smoking Advised to continue pulmonary rehab HOSPITAL COURSE: Shannon Hernandez was hospitalized with acute bronchitis exacerbation. Patient was treated with IV steroids, antibiotics, nebs treatment. During the stay in the hospital she had a panic attacks which was controlled with extra dose of Xanax and also one time Haldol was used which helped it a lot. The patient has been panicking at times and counseling was done. Also counseling for smoking was done. She was advised to change her lifestyle and to eat regularly. Again , she was advised to continue pulmonary rehab which has helped her a lot. On discharge she was given antibiotics, steroids on tapering dose, Xanax has been increased to four times a day. She was advised not to abuse it. She is oriented to time, place and person. Her cardiovascular status was stable. PROGNOSIS: Poor TIME SPENT: More than 60 minutes. MTDD
--- NOTE | 2018-01-06 15:15 | PN ---
12/30/17 ADMISSION DAY LEVEL 5 12/31/17 INTERMEDIATE 01/01/18 INTERMEDIATE 01/02/18 INTERMEDIATE 01/03/18 INTERMEDIATE 01/04/18 INTERMEDIATE 01/05/18 DISCHARGE MTDD
== END 2018-01-05 16:30 | disposition home or self-care (01) | DRG 190 ==
LOC: EDBD → ED 16:38 → MEDSURG B 19:15
PROVIDERS: ADMIT Internal Medicine; ATTEND Internal Medicine
DX: J44.1 Chronic obstructive pulmonary disease with (acute) exacerbation (principal); J18.9 Pneumonia, unspecified organism; J40 Bronchitis, not specified as acute or chronic; R06.00 Dyspnea, unspecified; R53.1 Weakness; R63.0 Anorexia; I10 Essential (primary) hypertension; I73.9 Peripheral vascular disease, unspecified; I25.10 Atherosclerotic heart disease of native coronary artery without angina pectoris; F41.0 Panic disorder [episodic paroxysmal anxiety]; F41.8 Other specified anxiety disorders; E78.5 Hyperlipidemia, unspecified; D64.9 Anemia, unspecified; M54.9 Dorsalgia, unspecified; Z99.81 Dependence on supplemental oxygen; Z72.0 Tobacco use
CPT/HCPCS: 36415; 80053; 82803; 82962; 83735; 84484; 85025; 87040; 93005; 93010; 94640; 96375; 99285

== ENCOUNTER 2018-01-06 10:50 | Outpatient (CLI) | END 2018-01-06 10:51 | disposition home or self-care (01) | LOC: AMBL 10:50 | PROVIDERS: ATTEND Internal Medicine | DX: R06.9 Unspecified abnormalities of breathing (principal); R00.0 Tachycardia, unspecified ==

== ENCOUNTER 2018-01-17 07:42 | Outpatient (RCR) | END 2018-02-16 23:59 | LOC: PUL.REHAB 07:42 → EDBD 07:42 | PROVIDERS: ATTEND Internal Medicine | DX: J44.9 Chronic obstructive pulmonary disease, unspecified (principal) ==

== ENCOUNTER 2018-01-31 17:21 | Inpatient (IN) ==
--- NOTE | 2018-01-31 18:23 | ED.PDOC ---
General ED Provider: Dr. CHEN SHAIKH Chief Complaint: Non-specific Complaint Stated Complaint: ANEMIA ON THE OUT PT LABS Time Seen by Physician: 17:30 (SEEN WITH SAMIRA WAS TRANSFUSED 3 WEEKS AGO FOR SAME ISSUE ) Mode of Arrival: Wheelchair Information Source: Patient Exam Limitations: No limitations, Other (ON PLAVIX) Primary Care Provider: SIDDHARTHA BRITO Nursing and Triage Documentation Reviewed and Agree: Yes Does patient meet sepsis criteria?: No System Inflammatory Response Syndrome: Not Applicable Sepsis Protocol: For patient's 13 years and over: Temp is 96.8 and below OR 101 and greater Pulse >90 BPM Resp >20/minute Acutely Altered Mental Status Are patient's symptoms suggestive of a new infection, such as: -Pneumonia -Skin, Soft Tissue -Endocarditis -UTI -Bone, Joint Infection -Implantable Device -Acute Abdominal Infection -Wound Infection -Meningitis -Blood Stream Catheter Infection -Unknown Miscellaneous Complaint Exam - Complex/Multi-System Complaint/Exam Onset/Duration: CHRONIC ANEMIA Symptoms Are: Still present Episodes Lasting: Weeks Aggravating: NOTHING BUT IS ON PLAVIX Alleviating: NONE Associated Signs and Symptoms: Reports: Weakness, Cough. Denies: Decreased responsiveness, Confusion, Agitation, Dizziness, Syncope, Headache, Short of air , Wheezing, Hemoptysis, Chest pain, Palpitations, Edema, Nausea, Vomiting, Diarrhea, Abdominal pain, Back pain, Dysuria, Hematemesis, Melena, Decreased oral intake, Fever, Diaphoresis, Immunocompromised, Anticoagulation Therapy, Recent medication changes, Indwelling director of graduate medical education, Prior MRSA, Prior VRE, Recent trauma, Remote trauma Recent Echo/LV Function: No Respiratory Distress: None JVD Present: No Tachypnea Present: No Stridor Present: No Abdominal Findings: Present: Normal findings Glascow Coma Scale (see protocol): 15 Meningeal Signs Positive: No Focal Weakness: Present: None Focal Sensory Loss: Present: None Gait: Unable Gag Reflex Present: Yes Skin Findings: Present: Normal findings Joint Swelling Present: No In-Dwelling Device Present: No Differential Diagnosis: Other (ANEMIA) Quality Indicators for Cardiac Chest Pain: EKG in 10min. Quality Indicators for AMI: EKG in 10min. Quality Indicator For Non-Traumatic Chest Pain/Syncope: EKG Performed Review of Systems - Review Of Systems Constitutional: Reports: Malaise, Weakness Eyes: Reports: No symptoms Ears, Nose, Mouth, Throat: Reports: No symptoms Respiratory: Reports: Cough Cardiac: Reports: No symptoms GI: Reports: Abdominal pain : Reports: No symptoms Musculoskeletal: Reports: No symptoms Skin: Reports: No symptoms Neurological: Reports: No symptoms Endocrine: Reports: No symptoms Hematologic/Lymphatic: Reports: No symptoms All Other Systems: Reviewed and Negative Past Medical History - Past Medical History Previously Healthy: No (ON PLAVIX) Endocrine: Reports: Dyslipidemia Cardiovascular: Reports: CAD, Hypertension, Other (PAD) Respiratory: Reports: COPD Hematological: Reports: None Gastrointestinal: Reports: None Genitourinary: Reports: None Neuro/Psych: Reports: Anxiety, Depression Musculoskeletal: Reports: Arthritis, Back Pain, Joint Pain Cancer: Reports: None Last Menstrual Period: na - Surgical History General Surgical History: Reports: Hysterectomy, Stent Placement - Family History Family History: Reports: Unknown - Social History Smoking Status: Current some day smoker Hx Substance Use: No Alcohol Screening: None - Immunizations Tetanus Shot up to Date: Yes Physical Exam - Physical Exam Appearance: Well-appearing, No pain distress, Well-nourished Eyes: ARIEL, EOMI, Conjunctiva clear ENT: Ears normal, Nose normal, Oropharynx normal Respiratory: Airway patent, Breath sounds clear, Breath sounds equal, Respirations nonlabored Cardiovascular: RRR, Pulses normal, No rub, No murmur GI/: Soft, Nontender, No masses, Bowel sounds normal, No Organomegaly Musculoskeletal: Normal strength, ROM intact, No edema, No calf tenderness Skin: Warm, Dry, Normal color Neurological: Sensation intact, Motor intact, Reflexes intact, Cranial nerves intact, Alert, Oriented Psychiatric: Affect appropriate, Mood appropriate Critical Care Note - Critical Care Note Total Time (mins): 0 Course - Course Hematology/Chemistry: 02/02/18 05:30 02/02/18 05:30 Orders, Labs, Meds: Lab Review 01/31/18 01/31/18 01/31/18 18:35 18:35 18:35 WBC 4.17 L RBC 2.39 L Hgb 7.2 L Hct 22.5 L MCV 94.1 MCH 30.1 MCHC 32.0 RDW Coeff of Tr 18.9 H Plt Count 59 L Immature Gran % (Auto) 1.4 Neut % (Auto) 67.5 Lymph % (Auto) 19.4 [place] % (Auto) 11.5 H Eos % (Auto) 0.2 Baso % (Auto) 0.0 Immature Gran # (Auto) 0.1 Neut # (Auto) 2.8 Lymph # (Auto) 0.8 [place] # (Auto) 0.5 Eos # (Auto) 0.0 Baso # (Auto) 0.0 PT 8.9 L INR 0.89 APTT 31.1 Sodium 135.7 L Potassium 3.46 L Chloride 95.9 L Carbon Dioxide 38.7 H Anion Gap 4.56 BUN 13.9 Creatinine 0.74 Estimated GFR (MDRD) 77.00 BUN/Creatinine Ratio 18.78 Glucose 111.9 H Calcium 8.88 Total Bilirubin 0.24 AST 17.7 ALT 24.3 Alkaline Phosphatase 50.9 L Total Creatine Kinase 21.3 L Troponin I 0.012 Total Protein 5.85 L Albumin 3.29 L Globulin 2.56 Albumin/Globulin Ratio 1.28 Blood Type Antibody Screen Crossmatch ([facility]) 01/31/18 18:35 WBC RBC Hgb Hct MCV MCH MCHC RDW Coeff of Tr Plt Count Immature Gran % (Auto) Neut % (Auto) Lymph % (Auto) [place] % (Auto) Eos % (Auto) Baso % (Auto) Immature Gran # (Auto) Neut # (Auto) Lymph # (Auto) [place] # (Auto) Eos # (Auto) Baso # (Auto) PT INR APTT Sodium Potassium Chloride Carbon Dioxide Anion Gap BUN Creatinine Estimated GFR (MDRD) BUN/Creatinine Ratio Glucose Calcium Total Bilirubin AST ALT Alkaline Phosphatase Total Creatine Kinase Troponin I Total Protein Albumin Globulin Albumin/Globulin Ratio Blood Type A POSITIVE Antibody Screen Negative Crossmatch ([facility]) See Detail Orders Category Date Time Status EKG-(ED ONLY) Stat CARDIO 01/31/18 18:14 Completed EKG-(IP & OP ONLY) DAILY CARDIO 02/01/18 06:00 Completed EKG-(IP & OP ONLY) DAILY CARDIO 02/02/18 06:00 Completed EKG-(IP & OP ONLY) DAILY CARDIO 02/03/18 06:00 Ordered OXYGEN Routine CARDIO 01/31/18 18:41 Active ACTIVITY .Complete BR CARE 01/31/18 18:41 Active INTAKE & OUTPUT Q8HR CARE 01/31/18 18:41 Active ORDER H&H 1HR POST TRANSFUSION ONCE CARE 01/31/18 18:36 Active PRBC LEUKOREDUCED ONCE CARE 01/31/18 18:36 Active VITAL SIGNS Q4HR CARE 01/31/18 18:41 Active REGULAR DIET DIETARY 01/31/18 Dinner Ordered ED IV/MEDIPORT/POWERPORT .ONCE EMERGENCY 01/31/18 18:14 Active CBC W/ AUTO DIFF DAILY@0600 LAB 02/01/18 05:20 Completed CBC W/ AUTO DIFF DAILY@0600 LAB 02/02/18 05:30 Completed CBC W/ AUTO DIFF Stat LAB 01/31/18 18:35 Completed COMPREHENSIVE METABOLIC PANEL DAILY@0600 LAB 02/01/18 05:20 Completed COMPREHENSIVE METABOLIC PANEL DAILY@0600 LAB 02/02/18 05:30 Completed COMPREHENSIVE METABOLIC PANEL Stat LAB 01/31/18 18:35 Completed CREATINE KINASE Stat LAB 01/31/18 18:35 Completed PACKED CELLS Routine LAB 01/31/18 18:35 Completed PARTIAL THROMBOPLASTIN TIME Stat LAB 01/31/18 18:35 Completed PT WITH INR Stat LAB 01/31/18 18:35 Completed TROPONIN I Stat LAB 01/31/18 18:35 Completed TYPE AND SCREEN Routine LAB 01/31/18 18:35 Completed 0.9 % Sodium Chloride [Saline Flush] MEDS 01/31/18 18:14 Active 1 syr IVF PRN PRN Amlodipine Besylate [Norvasc] MEDS 01/31/18 21:00 Active 5 mg PO BID Cephalexin [Keflex] MEDS 01/31/18 21:00 Discontinued 500 mg PO Q12HR Potassium Chloride in 0.9%NaCl [Sodium Chloride 0.9%- MEDS 01/31/18 19:00 Discontinued KCl 20 Meq] 1,000 ml IV 75 mls/hr CT ABDOMEN/PELVIS WO CONTRAST Stat RADS 01/31/18 18:[address] CHEST W/O CONTRAST Stat RADS 01/31/18 18:19 Completed Medications Generic Name Dose Route Start Last Admin Trade Name Freq PRN Reason Stop Dose Admin Hydrocodone Bitart/Acetaminophen 1 tab 01/31/18 21:00 02/02/18 08:44 [place] 10-325 PO 1 tab TID AYAD Administration Alprazolam 0.25 mg 02/01/18 09:00 02/02/18 08:40 Xanax PO 0.25 mg TID AYAD Administration Amlodipine Besylate 5 mg 01/31/18 21:00 02/02/18 08:45 Norvasc PO 5 mg BID AYAD Administration Atorvastatin Calcium 40 mg 02/01/18 21:00 02/01/18 20:34 Lipitor PO 40 mg BEDTIME AYAD Administration Budesonide 1 vial 02/02/18 18:00 Pulmicort 0.5 Mg/2 Ml NEB RTBID AYAD Carvedilol 25 mg 02/01/18 08:00 02/02/18 08:45 Coreg PO 25 mg BIDWM AYAD Administration Clonidine 0.1 mg 01/31/18 20:29 02/01/18 20:55 Catapres PO 0.1 mg DAILY PRN Administration Blood Pressure Docusate Sodium 200 mg 02/01/18 09:00 02/02/18 08:44 Colace PO 200 mg BID AYAD Administration Duloxetine HCl 30 mg 02/02/18 09:00 02/02/18 08:45 Cymbalta PO 30 mg DAILY AYAD Administration Escitalopram Oxalate 30 mg 02/01/18 09:00 02/02/18 08:45 Lexapro PO 30 mg DAILY AYAD Administration Ferrous Sulfate 324 mg 02/01/18 09:00 02/02/18 08:44 Ferrous Sulfate PO 324 mg BID AYAD Administration Ceftriaxone Sodium 1 gm/ 50 mls @ 75 mls/hr 02/01/18 09:00 02/02/18 08:42 Sodium Chloride IV 75 mls/hr DAILY AYAD Administration Levalbuterol HCl 1 vial 02/01/18 12:00 02/02/18 11:14 Xopenex 1.25 Mg NEB 1 vial RTQ6H AYAD Administration Non-Formulary Medication 2 puff 02/01/18 09:00 02/02/18 12:13 Tiotropium Br/Olodaterol Hcl [Stiolto Respimat Inhal Anita] IH Not Given DAILY AYAD Pantoprazole Sodium 40 mg 02/01/18 17:00 02/02/18 06:19 Protonix PO 40 mg BIDAC AYAD Administration Potassium Chloride 20 meq 02/01/18 21:00 02/01/18 20:35 K-Dur PO 20 meq BEDTIME AYAD Administration Pregabalin 100 mg 02/02/18 21:00 Lyrica PO BID AYAD Roflumilast 500 mcg 02/01/18 09:00 02/02/18 08:46 Daliresp PO 500 mcg DAILY AYAD Administration Rosuvastatin Calcium 20 mg 01/31/18 21:00 02/01/18 20:33 Crestor PO 20 mg BEDTIME AYAD Administration Sodium Chloride 1 syr 01/31/18 18:14 Saline Flush IVF PRN PRN To flush IV Sucralfate 1 gm 02/01/18 07:30 02/02/18 12:13 Carafate PO Not Given ACHS AYAD Tramadol HCl 50 mg 01/31/18 20:29 Ultram PO Q12HR PRN MODERATE PAIN Discontinued Medications Generic Name Dose Route Start Last Admin Trade Name Freq PRN Reason Stop Dose Admin Alprazolam 0.25 mg 01/31/18 21:00 01/31/18 21:06 Xanax PO 0.25 mg Q12HR AYAD Administration Cephalexin 500 mg 01/31/18 21:00 01/31/18 21:07 Keflex PO 500 mg Q12HR AYAD Administration Dexamethasone Sodium Phosphate 4 mg 02/02/18 08:15 02/02/18 08:43 Decadron 4 Mg/Ml Sdv IM 02/02/18 08:16 4 mg ONCE STA Administration Docusate Sodium 200 mg 01/31/18 21:00 01/31/18 21:07 Colace PO 200 mg BEDTIME AYAD Administration Furosemide 40 mg 02/02/18 08:14 02/02/18 08:43 Lasix IVP 02/02/18 08:15 40 mg ONCE STA Administration Potassium Chloride/Sodium Chloride 1,000 mls @ 75 mls/hr 01/31/18 19:00 02/02 03:36 Sodium Chloride 0.9%-Kcl 20 Meq IV 75 mls/hr .[id number] AYAD Administration Levalbuterol HCl 1 vial 02/01/18 06:00 02/01/18 05:00 Xopenex 1.25 Mg NEB 1 vial RTQID AYAD Administration Levalbuterol HCl 1 vial 01/31/18 21:43 01/31/18 20:50 Xopenex 1.25 Mg NEB 01/31/18 21:44 1 vial ONCE STA Administration Magnesium Citrate 5 oz 02/01/18 08:19 02/01/18 09:02 Citrate Of Magnesia PO 02/01/18 08:20 5 oz ONCE STA Administration Non-Formulary Medication 180 mcg 01/31/18 21:00 10/15/18 22:16 Budesonide [Pulmicort Flexhaler] BUCCAL Not Given BID AYAD Non-Formulary Medication 325 mg 01/31/18 21:00 01/31/18 21:09 Ferrous Sulfate [Ferrous Sulfate] PO Not Given BID AYAD Non-Formulary Medication 40 mg 01/31/18 21:00 01/31/18 21:08 Atorvastatin Calcium [Atorvastatin Calcium] PO Not Given BEDTIME AYAD Non-Formulary Medication 180 mcg 02/01/18 09:00 02/02/18 12:13 Budesonide [Pulmicort Flexhaler] BUCCAL Not Given BID AYAD Pantoprazole Sodium 40 mg 01/31/18 21:00 01/31/18 21:07 Protonix PO 40 mg BID AYAD Administration Potassium Chloride 20 meq 01/31/18 21:00 01/31/18 21:06 Micro-K Cap PO 20 meq BEDTIME AYAD Administration Pregabalin 200 mg 01/31/18 21:00 02/02/18 08:41 Lyrica PO 200 mg BID AYAD Administration Sucralfate 1 gm 01/31/18 21:00 01/31/18 21:06 Carafate PO 1 gm QID AYAD Administration Vital Signs: Temp Pulse Resp BP Pulse Ox 01/31/18 17:22 97.2 F L 69 18 124/61 92 L Departure - Departure Time of Disposition: 21:00 Disposition: ADMITTED INPATIENT Discharge Problem: Anemia Qualifiers: Anemia type: unspecified type Qualified Code(s): D64.9 - Anemia, unspecified Condition: Good Pt referred to PMD for follow-up: Yes IPMP verified?: No Allergies/Adverse Reactions: Allergies No Known Allergies Allergy (Verified 12/30/17 16:42) Home Medications: Ambulatory Orders Roflumilast [Daliresp] 500 mcg PO DAILY 03/29/15 Rosuvastatin Calcium [Crestor] 20 mg PO BEDTIME 12/27/15 Carvedilol [Coreg] 25 mg PO BIDWM 05/27/16 Cholecalciferol (Vitamin D3) [Vitamin D] 400 units PO DAILY 05/26/17 Amlodipine Besylate 10 mg PO DAILY 06/17/17 Cyanocobalamin (Vitamin B-12) [Vitamin B-12] 3,000 mcg PO DAILY 06/17/17 Ferrous Sulfate 325 mg PO BID 06/17/17 Hydrocodone Bit/Acetaminophen [[place] 10-325] 1 tab PO TID PRN 06/17/17 Pregabalin [Lyrica] 200 mg PO BID 06/17/17 Levalbuterol HCl [Xopenex 1.25 mg] 1 vial NEB RTQ8H PRN #90 vial.neb 06/21/17 Clonidine HCl [Catapres] 0.1 mg PO DAILY PRN 12/19/17 Docusate Sodium 2 cap PO BEDTIME 12/19/17 Escitalopram Oxalate [Lexapro] 10 mg PO DAILY 12/19/17 Potassium Chloride [Micro-K Cap] 20 meq PO BEDTIME 12/19/17 Tiotropium Br/Olodaterol HCl [Stiolto Respimat Inhal Anita] 2 puff IH DAILY Alprazolam [Xanax] 0.25 mg PO Q12HR 01/31/18 Atorvastatin Calcium 40 mg PO BEDTIME 01/31/18 Budesonide [Pulmicort Flexhaler] 180 mcg BUCCAL BID 01/31/18 Guaifenesin [Guaifenesin ER] 600 mg PO BID 01/31/18 Hydrocodone/Acetaminophen [[place] 10-325 Tablet] 1 tab PO TID 01/31/18 Pantoprazole Sodium [Protonix] 40 mg PO BID 01/31/18 Sucralfate [Carafate] 1 gm PO QID 01/31/18 Tramadol HCl 50 mg PO Q12HR PRN 01/31/18 Disposition Discussed With: Patient, Family
[2018-01-31] MEDS ORDERED: XANAX PO PRN (18:37)
--- NOTE | 2018-01-31 19:05 | CT ---
EXAM: Noncontrast chest CT HISTORY: Cough COMPARISON: 12/30/2017 and Chest x-ray, 12/19/2017 CT TECHNIQUE: Axial noncontrast CT of the chest with sagittal and coronal reformats FINDINGS: Extensive emphysematous changes are again seen. There is now patchy consolidation of the right upper lobe. Minimal right upper lobe tree in bud opacities are now seen on axial image 27. Calcified gran ulomas are again seen. Patchy right lower lobe consolidation is also now seen and new compared to th e prior exam. There is stable minimal bilateral nodularity. No pneumothorax is seen. There is a sma ll right and trace left pleural effusion. The heart is borderline enlarged. Atherosclerotic calcifications are present including coronary ryanne mehrdad. There is focal aneurysmal dilation of the descending thoracic aorta measuring 3.2 cm on coronal image 54. No mediastinal lymphadenopathy is seen. Calcified mediastinal and hilar lymph nodes are s een. An abdominal aortic stent is partially imaged. There is a partially imaged left renal cyst. There is mild multilevel degenerative disc disease. IMPRESSION: Right upper lobe and right lower lobe pneumonia now seen. Extensive emphysematous changes. Small right and trace left pleural effusion. Focal aneurysmal dilation of the descending thoracic aorta measuring 3.2 cm. Atherosclerosis including coronary arteries.
--- NOTE | 2018-01-31 19:15 | CT ---
EXAM: CT abdomen pelvis without contrast TECHNIQUE: Helical axial CT of the abdomen and pelvis was performed without contrast with coronal an d sagittal reconstructions. COMPARISON: CT of the pelvis from 04/14/2017 HISTORY: Abdominal pain FINDINGS: There is no acute abnormality. Specifically there is no mesenteric inflammation, free air, free fluid or bowel wall thickening or edema or pathologic lymph nodes or obstruction or ileus. The appendix is not identified There are no inflamed colonic diverticula. There is a large amount of retained stool particularly in the right colon. There is some minimal edema in the mesentery which is unchanged and nonspecific. The liver, spleen, pancreas,and adrenal glands show no acute abnormality. There is some bibasilar at electasis. There is extremely advanced emphysema seen in the lung bases. There is no hiatal hernia. T he gallbladder is contracted. There is a tiny stone or some sludge in the gallbladder. There is no b iliary or pancreatic ductal dilatation. There are no suspicious renal masses or hydronephrosis. There are a few small exophytic lesions seen involving both kidneys which are unchanged probably cysts. There are no kidney stones. Both ureters demonstrate normal course and caliber. There is no filling defect in the urinary bladder. There are no abdominal wall hernias. There is extremely advanced calcific atherosclerosis with prior aortofemoral bypass. Also noted is a fair amount of calcification of the superior mesenteric artery a few centimeters beyond its origin. There are no acute osseous abnormalities. IMPRESSION: 1. No definite acute abnormality seen in the abdomen or pelvis. Specifically there is no free air f ree fluid or bowel wall thickening or edema. 2. Very advanced atherosclerosis with some calcific atherosclerosis of the superior mesenteric arter y. Would recommend correlation for possible mesenteric ischemia. No secondary signs however of that are seen. 3. Small stone or calcified sludge in the gallbladder with no evidence for associated inflammation. 4. Other nonacute findings as detailed above.
[2018-01-31 20:03] VITALS: BMI 20.2
[2018-01-31] MEDS ORDERED: ULTRAM PO PRN (20:29)
[2018-01-31] MEDS ORDERED: CATAPRES PO PRN (20:29)
[2018-01-31] MEDS ORDERED: XANAX ONE (20:57)
[2018-01-31] MEDS ORDERED: FERROUS SULFATE ONE (20:57)
[2018-01-31] MEDS ORDERED: LIPITOR ONE (20:58)
[2018-01-31] MEDS ORDERED: NON-FORMULARY MEDICATION (Ferrous Sulfate [Ferrous Sulfate] 325 MG) PO SCH (21:00)
[2018-01-31] MEDS ORDERED: CARAFATE PO SCH (21:00)
[2018-01-31] MEDS ORDERED: COLACE PO SCH (21:00)
[2018-01-31] MEDS ORDERED: MICRO-K CAP PO SCH (21:00)
[2018-01-31] MEDS ORDERED: BUDESONIDE 180 MCG BUCCAL SCH (21:00)
[2018-01-31] MEDS ORDERED: NON-FORMULARY MEDICATION (Atorvastatin Calcium [Atorvastatin Calcium] 40 MG) PO SCH (21:00)
[2018-01-31] MEDS ORDERED: KEFLEX PO SCH (21:00)
[2018-01-31] MEDS ORDERED: XANAX PO SCH (21:00)
[2018-01-31] MEDS ORDERED: PROTONIX PO SCH (21:00)
[2018-01-31] MEDS: LYRICA PO SCH (21:06)
[2018-01-31] MEDS: NORCO 10-325 PO SCH (21:06)
[2018-01-31] MEDS: CRESTOR PO SCH (21:07)
[2018-01-31] MEDS: NORVASC PO SCH (21:07)
[2018-01-31] MEDS ORDERED: XOPENEX 1.25 MG NEB STA (21:43)
[2018-01-31] MEDS: SODIUM CHLORIDE 0.9%-KCL 20 MEQ 1,000 ML IV SCH (22:17)
[2018-02-01] MEDS ORDERED: XOPENEX 1.25 MG NEB SCH (06:00)
[2018-02-01] MEDS ORDERED: NON-FORMULARY MEDICATION (Carvedilol [Coreg] 25 MG) PO SCH (08:00)
[2018-02-01] MEDS ORDERED: CITRATE OF MAGNESIA PO STA (08:19)
[2018-02-01] MEDS: ROCEPHIN 1 GM in SODIUM CHLORIDE 50 ML IV SCH (08:58)
[2018-02-01] MEDS: XANAX PO SCH ×3 (09:00→20:35)
[2018-02-01] MEDS: CARAFATE PO SCH ×4 (09:00→20:34)
[2018-02-01] MEDS ORDERED: ESCITALOPRAM OXALATE 30 MG PO SCH (09:00)
[2018-02-01] MEDS: NORVASC PO SCH ×2 (09:01→20:34)
[2018-02-01] MEDS: LEXAPRO PO SCH (09:01)
[2018-02-01] MEDS: FERROUS SULFATE PO SCH ×2 (09:01→20:35)
[2018-02-01] MEDS: NORCO 10-325 PO SCH ×3 (09:01→20:34)
[2018-02-01] MEDS: COREG PO SCH ×2 (09:01→17:16)
[2018-02-01] MEDS: LYRICA PO SCH ×2 (09:02→20:34)
[2018-02-01] MEDS: COLACE PO SCH ×2 (09:02→20:34)
[2018-02-01] MEDS: NON-FORMULARY MEDICATION (Tiotropium Br/Olodaterol Hcl [Stiolto Respimat Inhal Spray] 2 PU IH SCH (09:03)
[2018-02-01] MEDS: BUDESONIDE 180 MCG BUCCAL SCH ×2 (09:03→20:35)
[2018-02-01] MEDS: DALIRESP PO SCH (09:06)
[2018-02-01] MEDS: SODIUM CHLORIDE 0.9%-KCL 20 MEQ 1,000 ML IV SCH (09:54)
--- NOTE | 2018-02-01 11:00 | PCM.PROG ---
Attending Provider: ATTENDING PROVIDER: Dr. SIDDHARTHA DAWSON This patient is seen with Rupal Perez, Nurse Practitioner. DATE OF SERVICE: 02/01/18 SUBJECTIVE: This 72 year old WHITE/ F was hospitalized 01/31/18. The patient's hemoglobin has improved. She is complaining that she can't urinate. She has urinated only one time since admission. CT scan of abdomen shows constipation. Stool is negative for occult blood. REVIEW OF SYSTEMS: CONSTITUTIONAL: Positive for weakness. No night sweats. No malaise, lethargy. No fever or chills. HEENT: Eyes: No visual changes. No eye pain. No eye discharge. ENT: No runny nose. No epistaxis. No sinus pain. No odynophagia. No congestion. RESPIRATORY: Positive for cough and shortness of breath. No congestion. No hemoptysis. CARDIOVASCULAR: No angina symptoms. No CHF symptoms. No atypical chest pain for CAD. No palpitations. No orthopnea.. GASTROINTESTINAL: No abdominal pain. No nausea or vomiting. No diarrhea or constipation. No hematemesis. No hematochezia. GENITOURINARY: Positive for urinary hesitancy. No hematuria. No obstructive symptoms. No discharge. No pain. No significant abnormal bleeding. MUSCULOSKELETAL: No musculoskeletal pain; no joint swelling. NEUROLOGICAL: Awake, alert, oriented to time, place and person. No headache. No neck pain. No syncope. No seizures. No dizziness. PSYCHIATRIC: Not anxious. No depression. No suicidal thoughts. No homicidal thoughts. SKIN: No rash. No lesions. No wounds. ENDOCRINE: No unexplained weight loss. No weight gain. HEMATOLOGIC/LYMPHATIC: No anemia. No purpura. No petechiae. No prolonged or excessive bleeding. No palpable lymph nodes. PHYSICAL EXAMINATION: GENERAL: The patient is awake, alert and oriented, sitting in bed in no distress. VITAL SIGNS: Temperature 97.8 F, Pulse 92, Respiratory Rate 16, BP 179/84, Pulse Ox 99% HEENT: Head normocephalic, atraumatic. Eyes: Extraocular muscles are intact. Pupils are equal, round and reactive to light and accommodation. Ears: No lesions. Nose appeared normal. Throat: No exudate or erythema. NECK: Supple. No JVD, no carotid bruit. No lymphadenopathy or thyromegaly. LUNGS: Diminished breath sounds, more so on the right. Clear to auscultation. Percussion note normal. Chest symmetrical. HEART: S1, S2, no S3. No murmurs. No cyanosis or clubbing. No ascites. Pulses: Dorsalis pedis and posterior tibial pulses +1 to +2 both sides. ABDOMEN: Soft. Non-tender. Bowel sounds active. No CVA tenderness. No mass felt. EXTREMITIES: No edema. Full range of motion of all extremities, equal. NEUROLOGIC: No focal deficit. Cranial nerves II through XII are grossly intact. No headache, no double vision or headache. SKIN: Not dry. Intact. Turgor-normal. LYMPHATIC: No palpable lymph nodes/no lymphedema. MUSCULOSKELETAL: Normal joints with no swelling. Muscle tone is normal. LAB REVIEW: 02/01/18 05:20 02/01/18 05:20 02/01/18 05:20: Sodium 138.4, Potassium 3.56, Chloride 98.5, Carbon Dioxide 39.8 H, Anion Gap 3.66, BUN 11.3, Creatinine 0.63, Estimated GFR (MDRD) 93.00, BUN/Creatinine Ratio 17.93, Glucose 94.1, Calcium 9.20, Total Bilirubin 0.56, AST 25.2, ALT 26.7, Alkaline Phosphatase 60.7, Total Protein 6.19 L, Albumin 3.53, Globulin 2.66, Albumin/Globulin Ratio 1.32 02/01/18 05:20: WBC 5.10, RBC 3.72 L, Hgb 10.6 L D, Hct 33.7 L D, MCV 90.6, MCH 28.5, MCHC 31.5 L, RDW Coeff of Tr 17.9 H, Plt Count 64 L, Immature Gran % ( Auto) 2.0, Neut % (Auto) 60.5, Lymph % (Auto) 24.7, [place] % (Auto) 11.8 H, Eos % (Auto) 0.6, Baso % (Auto) 0.4, Immature Gran # (Auto) 0.1, Neut # (Auto) 3.1, Lymph # (Auto) 1.3, [place] # (Auto) 0.6, Eos # (Auto) 0.0, Baso # (Auto) 0.0 01/31/18 19:48: Stl Occult Blood (IFOB) Negative, Stool Occult Blood #2 No specimen received, Stool Occult Blood #3 No specimen received 01/31/18 18:35: Blood Type A POSITIVE, Antibody Screen Negative, Crossmatch ([facility] ) See Detail 01/31/18 18:35: Sodium 135.7 L, Potassium 3.46 L, Chloride 95.9 L, Carbon Dioxide 38.7 H, Anion Gap 4.56, BUN 13.9, Creatinine 0.74, Estimated GFR (MDRD) 77.00, BUN/Creatinine Ratio 18.78, Glucose 111.9 H, Calcium 8.88, Total Bilirubin 0.24, AST 17.7, ALT 24.3, Alkaline Phosphatase 50.9 L, Total Creatine Kinase 21.3 L, Troponin I 0.012, Total Protein 5.85 L, Albumin 3.29 L, Globulin 2.56, Albumin/Globulin Ratio 1.28 01/31/18 18:35: PT 8.9 L, INR 0.89, APTT 31.1 01/31/18 18:35: WBC 4.17 L, RBC 2.39 L, Hgb 7.2 L, Hct 22.5 L, MCV 94.1, MCH 30.1, MCHC 32.0, RDW Coeff of Tr 18.9 H, Plt Count 59 L, Immature Gran % (Auto ) 1.4, Neut % (Auto) 67.5, Lymph % (Auto) 19.4, [place] % (Auto) 11.5 H, Eos % ( Auto) 0.2, Baso % (Auto) 0.0, Immature Gran # (Auto) 0.1, Neut # (Auto) 2.8, Lymph # (Auto) 0.8, [place] # (Auto) 0.5, Eos # (Auto) 0.0, Baso # (Auto) 0.0 ASSESSMENT: 1. ANEMIA, IMPROVED 2. URINARY HESITANCY 3. RIGHT UPPER AND RIGHT LOWER LOBE PNEUMONIA 4. HYPERTENSION 5. ANXIETY AND DEPRESSION PLAN: 1. Xanax 0.25 mg t.i.d. AYAD 2. D/C Keflex 3. Rocephin 4. Colace 5. Mag Citrate 1/2 bottle 6. Bladder scan showed greater than 900, will insert Bonds 7. UA, catheterized specimen Plan and coordination of the patient's care discussed in the presence of [employer] and nurse. CONDITION: Stable SCRIBED BY: KENISHA FRY Softball Player scribed while in presence of service performed by Dr. Dawson/Rupal Perez APRN on 02/01/18 ([id number])
[2018-02-01] MEDS: XOPENEX 1.25 MG NEB SCH ×3 (11:13→23:05)
[2018-02-01] MEDS: PROTONIX PO SCH (17:16)
[2018-02-01] MEDS: CRESTOR PO SCH (20:33)
[2018-02-01] MEDS: LIPITOR PO SCH (20:34)
[2018-02-01] MEDS: K-DUR PO SCH (20:35)
[2018-02-02] MEDS: SODIUM CHLORIDE 0.9%-KCL 20 MEQ 1,000 ML IV SCH (03:36)
[2018-02-02] MEDS: XOPENEX 1.25 MG NEB SCH ×4 (04:33→23:20)
[2018-02-02] MEDS: PROTONIX PO SCH ×2 (06:19→17:04)
[2018-02-02] MEDS: CARAFATE PO SCH ×4 (06:19→20:32)
[2018-02-02] MEDS ORDERED: LASIX IVP STA (08:14)
[2018-02-02] MEDS ORDERED: DECADRON 4 MG/ML SDV IM STA (08:15)
[2018-02-02] MEDS: XANAX PO SCH ×3 (08:40→20:31)
[2018-02-02] MEDS: LYRICA PO SCH ×2 (08:41→20:30)
[2018-02-02] MEDS: ROCEPHIN 1 GM in SODIUM CHLORIDE 50 ML IV SCH (08:42)
[2018-02-02] MEDS: COLACE PO SCH ×2 (08:44→20:31)
[2018-02-02] MEDS: NORCO 10-325 PO SCH ×3 (08:44→20:31)
[2018-02-02] MEDS: FERROUS SULFATE PO SCH ×2 (08:44→21:06)
[2018-02-02] MEDS: LEXAPRO PO SCH (08:45)
[2018-02-02] MEDS: NORVASC PO SCH ×2 (08:45→20:32)
[2018-02-02] MEDS: CYMBALTA PO SCH (08:45)
[2018-02-02] MEDS: COREG PO SCH ×2 (08:45→17:03)
[2018-02-02] MEDS: DALIRESP PO SCH (08:46)
[2018-02-02] MEDS: NON-FORMULARY MEDICATION (Tiotropium Br/Olodaterol Hcl [Stiolto Respimat Inhal Spray] 2 PU IH SCH (12:13)
[2018-02-02] MEDS: BUDESONIDE 180 MCG BUCCAL SCH (12:13)
--- NOTE | 2018-02-02 13:01 | PCM.PROG ---
Attending Provider: ATTENDING PROVIDER: Dr. SIDDHARTHA BRITO This patient is seen with Rupal Perez, Nurse Practitioner. DATE OF SERVICE: 02/02/18 SUBJECTIVE: This 72 year old WHITE/ F was hospitalized 01/31/18. The patient is lying in bed resting comfortably. She has been slightly confused this morning. She states she feels slightly more short of breath. REVIEW OF SYSTEMS: CONSTITUTIONAL: Weakness. No night sweats. No fatigue, malaise, lethargy. No fever or chills. HEENT: Eyes: No visual changes. No eye pain. No eye discharge. ENT: No runny nose. No epistaxis. No sinus pain. No odynophagia. No congestion. RESPIRATORY: No cough, no congestion. No hemoptysis. Shortness of breath. CARDIOVASCULAR: No angina symptoms. No CHF symptoms. No atypical chest pain for CAD. No palpitations. No orthopnea. GASTROINTESTINAL: No abdominal pain. No nausea or vomiting. No diarrhea or constipation. No hematemesis. No hematochezia. GENITOURINARY: No urgency. No frequency. No dysuria. No hematuria. No obstructive symptoms. No discharge. No pain. No significant abnormal bleeding. MUSCULOSKELETAL: No musculoskeletal pain; no joint swelling. NEUROLOGICAL: Awake, alert, oriented, has been confused this morning. No headache. No neck pain. No syncope. No seizures. No dizziness. PSYCHIATRIC: Not anxious. No depression. No suicidal thoughts. No homicidal thoughts. SKIN: No rash. No lesions. No wounds. ENDOCRINE: No unexplained weight loss. No weight gain. HEMATOLOGIC/LYMPHATIC: No anemia. No purpura. No petechiae. No prolonged or excessive bleeding. No palpable lymph nodes. PHYSICAL EXAMINATION: GENERAL: The patient is awake, alert, lying in bed in no distress. VITAL SIGNS: Temperature 99.2 F, Pulse 70, Respiratory Rate 20, BP 156/71, Pulse Ox 93% HEENT: Head normocephalic, atraumatic. Eyes: Extraocular muscles are intact. Pupils are equal, round and reactive to light and accommodation. Ears: No lesions. Nose appeared normal. Throat: No exudate or erythema. Pallor positive. Facial puffiness. NECK: Supple. No JVD, no carotid bruit. No lymphadenopathy or thyromegaly. LUNGS: Wheezing bilaterally. Percussion note normal. Chest symmetrical. HEART: S1, S2, no S3. No murmurs. No cyanosis or clubbing. No ascites. Pulses: Dorsalis pedis and posterior tibial pulses +1 to +2 both sides. ABDOMEN: Soft. Non-tender. Bowel sounds active. No CVA tenderness. No mass felt. EXTREMITIES: No edema. Full range of motion of all extremities, equal. NEUROLOGIC: No focal deficit. Cranial nerves II through XII are grossly intact. No headache, no double vision or headache. SKIN: Not dry. Intact. Turgor-normal. LYMPHATIC: No palpable lymph nodes/no lymphedema. MUSCULOSKELETAL: Normal joints with no swelling. Muscle tone is normal. LAB REVIEW: 02/02/18 05:30 02/02/18 05:30 02/02/18 05:30: Sodium 141.5, Potassium 4.29, Chloride 103.1, Carbon Dioxide 39.8 H, Anion Gap 2.89, BUN 12.9, Creatinine 0.67, Estimated GFR (MDRD) 87.00, BUN/Creatinine Ratio 19.25, Glucose 113.8 H, Calcium 8.41, Total Bilirubin 0.42 , AST 39.8 H, ALT 33.1, Alkaline Phosphatase 69.2, Total Protein 5.61 L, Albumin 3.06 L, Globulin 2.55, Albumin/Globulin Ratio 1.20 02/02/18 05:30: WBC 4.85, RBC 3.32 L, Hgb 9.5 L, Hct 30.9 L, MCV 93.1, MCH 28.6 , MCHC 30.7 L, RDW Coeff of Tr 18.5 H, Plt Count 69 L, Immature Gran % (Auto) 1.4, Neut % (Auto) 68.1, Lymph % (Auto) 16.5, [place] % (Auto) 13.4 H, Eos % (Auto ) 0.4, Baso % (Auto) 0.2, Immature Gran # (Auto) 0.1, Neut # (Auto) 3.3, Lymph # (Auto) 0.8, [place] # (Auto) 0.7, Eos # (Auto) 0.0, Baso # (Auto) 0.0 02/01/18 08:20: Urine Color Yellow, Urine Clarity Clear, Urine pH 7.0, Ur Specific [place] 1.015, Urine Protein Trace, Urine Glucose (UA) Negative, Urine Ketones Negative, Urine Blood Negative, Urine Nitrite Negative, Urine Bilirubin Negative, Urine Urobilinogen 0.2, Ur Leukocyte Esterase Negative, Ur Squamous Epith Cells Not present, Urine Mucus Trace 02/01/18 05:30: Vitamin B12 > 1000 H ASSESSMENT: 1. ANEMIA, IMPROVED 2. URINARY HESITANCY 3. RIGHT UPPER AND RIGHT LOWER LOBE PNEUMONIA 4. SOB 5. HYPERTENSION 6. ANXIETY AND DEPRESSION PLAN: 1. Cymbalta 30 mg daily 2. ABGs 3. Stop IV fluids 4. Lasix 40 mg IV push one time 5. 1 cc Decadron today Plan and coordination of the patient's care discussed in the presence of Sales Porter and nurse. CONDITION: Stable SCRIBED BY: KENISHA FRY Instrument And Control Service Person scribed while in presence of service performed by Dr. Brito/Rupal Perez APRN on 02/02/18 (0200)
--- NOTE | 2018-02-02 13:11 | PN ---
DATE OF SERVICE: 02/01/18 SUBJECTIVE: The patient was seen and examined with the nurse practitioner. The patient has no active GI bleed. Two units of packed red cells given. The patient is feeling better. Hemoglobin is more than 10 with hematocrit of more than 30. PHYSICAL EXAMINATION: HEENT: Head normocephalic, atraumatic. Eyes: Extraocular muscles are intact. Pupils are equal, round and reactive to light and accommodation. Ears: No lesions. Nose appeared normal. Throat: No exudate or erythema. NECK: Supple. No JVD, no carotid bruit. No lymphadenopathy or thyromegaly. LUNGS: Decreased breath sounds but clear to auscultation. Percussion note normal. Chest symmetrical. HEART: S1, S2, no S3. No murmurs. No cyanosis or clubbing. No ascites. Pulses: Dorsalis pedis and posterior tibial pulses +1 to +2 both sides. ABDOMEN: Soft. Nontender. Bowel sounds active. No CVA tenderness. No mass felt. EXTREMITIES: No edema. Full range of motion of all extremities, equal. NEUROLOGIC: No focal deficit. Cranial nerves II through XII are grossly intact. No headache, no double vision or headache. SKIN: Not dry. Intact. Turgor - normal. LYMPHATIC: No palpable lymph nodes/no lymphedema. MUSCULOSKELETAL: Normal joints with no swelling. Muscle tone is normal. ASSESSMENT: Medical conditions are stable. The patient's daughter is in the room, explained about the findings. Condition is stable. TIME SPENT: More than 30 minutes. Plan and coordination of the patient's care discussed in the presence of nurse. KEVIN
--- NOTE | 2018-02-02 13:17 | PN ---
DATE OF SERVICE: 01/31/18 SUBJECTIVE: The patient was seen and examined and sent from the [facility] by Rupal Nurse Practitioner, because hemoglobin was noted to be 7.1. The patient has no evidence of active GI bleed. The patient will be given two units of packed red cells. Cardiovascular and respiratory status is stable. She is not in any distress. The patient is not on a nonsteroidal antiinflammatory. CONDITION: Stable. TIME SPENT: More than 30 minutes. Plan and coordination of the patient's care discussed in the presence of nurse. KEVIN
--- NOTE | 2018-02-02 13:21 | PN ---
DATE OF SERVICE: 02/02/18 SUBJECTIVE: The patient is doing very well. The patient was seen and examined with the nurse practitioner. Hemoglobin and hematocrit were stable. No evidence of active GI bleed. The has very poor understanding of the patient's problems. Time and time again he was explained of patient's overall critical status which has been deteriorating from neglect and poor lifestyle. The patient has severe chronic lung disease, has history of GI bleed, which she is being worked up by sidewalk inspector at [facility]. She had hospitalization at [facility] and was given 3 units of packed red cells. The patient had EGD done in June 2017 showing peptic ulcer disease with bleeding. TIME SPENT: More than 30 minutes. Plan and coordination of the patient's care discussed in the presence of nurse. KEVIN
--- NOTE | 2018-02-02 14:52 | HP ---
DATE OF SERVICE: 01/31/18 HISTORY OF PRESENT ILLNESS: 72-year-old white female who has been in [facility] for physical and occupational therapy. It was reported to me by telephone today that she was having increased confusion and I instructed her to go to the emergency room at this point for which she declined. I ordered STAT labs at the halfway and found her hemoglobin was 7.1 and sent her to the emergency room. PAST MEDICAL HISTORY: History of anemia History of hypokalemia Peripheral vascular disease Severe COPD, oxygen dependent Anxiety/depression Hypertension Dyslipidemia Anemia GERD Possible peptic ulcer disease Degenerative joint disease of the spine Osteoporosis PAST SURGICAL HISTORY: Status post hysterectomy Coronary artery disease with stent placement REVIEW OF SYSTEMS: CONSTITUTIONAL: Positive for pallor, weakness. No night sweats. No malaise, lethargy. No fever or chills. HEENT: Eyes: No visual changes. No eye pain. No eye discharge. ENT: No runny nose. No epistaxis. No sinus pain. No sore throat. No odynophagia. No ear pain. No congestion. RESPIRATORY: No cough, no congestion. No hemoptysis. Positive for shortness of breath as usual. CARDIOVASCULAR: No angina symptoms. No CHF symptoms. No atypical chest pain for CAD. No palpitations. No PND. No orthopnea. GASTROINTESTINAL: No abdominal pain. No nausea or vomiting. No diarrhea or constipation. No hematemesis. No hematochezia. GENITOURINARY: No urgency. No frequency. No dysuria. No hematuria. No obstructive symptoms. No discharge. No pain. No significant abnormal bleeding. MUSCULOSKELETAL: No musculoskeletal pain. No joint swelling. No arthritis. NEUROLOGICAL: No headache. No neck pain. No syncope. No seizures. No dizziness. PSYCHIATRIC: Not anxious. No depression. No suicidal thoughts. No homicidal thoughts. SKIN: No rash. No lesions. No wounds. ENDOCRINE: No unexplained weight loss. No weight gain. HEMATOLOGIC/LYMPHATIC: No anemia. No purpura. No petechiae. No prolonged or excessive bleeding. No palpable lymph nodes. SOCIAL HISTORY: Right now the patient is at [facility] for PT. She is and usually lives at home with . She is a smoker but she has cut down over the past several years. No alcohol or illicit drug use. She does have a history of overtaking her medication including her [place] and Xanax. MEDICATIONS: Daliresp 500 mcg p.o. daily Crestor 20 mg p.o. bedtime Coreg 25 mg p.o. b.i.d. with meal Cholecalciferol 400 units p.o. daily Cyanocobalamin 3,000 mcg p.o. daily Ferrous Sulfate 325 mg p.o. b.i.d. Amlodipine 10 mg p.o. daily Hydrocodone/Acetaminophen one tab p.o. t.i.d. p.r.n. Lyrica 200 mg p.o. b.i.d. Xopenex neb Lexapro 10 mg p.o. daily Micro-K 20 mEq p.o. bedtime Catapres 0.1 mg p.o. daily p.r.n. Docusate Sodium two cap p.o. bedtime Tiotropium two puff IH daily Atorvastatin 40 mg p.o. bedtime Xanax 0.25 mg p.o. q.12hr Tramadol 50 mg p.o. q.12h p.r.n. Carafate 1 gm p.o. q.i.d. Protonix 40 mg p.o. b.i.d. [place] 10-325 mg one tab p.o. t.i.d. Guaifenesin 600 mg p.o. b.i.d. Pulmicort flexhaler 180 mcg buccal b.i.d. ALLERGIES: NKDA PHYSICAL EXAMINATION: VITAL SIGNS: Temperature 97.9, pulse 96, BP 151/60, respiratory rate 15, 02 @ 2L/NC. 02 Sat 90L HEENT: Head normocephalic, atraumatic. Eyes: Extraocular muscles are intact. Pupils are equal, round and reactive to light and accommodation. Ears: No lesions. Nose appeared normal. Throat: No exudate or erythema. NECK: Supple. No JVD, no carotid bruit. No lymphadenopathy or thyromegaly. LUNGS: Severely diminished breath sounds bilaterally, worse on the right. Clear to auscultation. Percussion note normal. Chest symmetrical. HEART: S1, S2, no S3. No murmurs. No cyanosis or clubbing. No ascites. Pulses: Dorsalis pedis and posterior tibial pulses +1 to +2 bilaterally. ABDOMEN: Soft. Nontender. Bowel sounds active. No CVA tenderness. No mass felt. EXTREMITIES: No edema. Full range of motion of all extremities, equal. NEUROLOGIC: No focal deficit. Cranial nerves II through XII are grossly intact. No headache, no double vision or headache. SKIN: Not dry. Intact. Turgor - normal. LYMPHATIC: No palpable lymph nodes/no lymphedema. MUSCULOSKELETAL: Normal joints with no swelling. Muscle tone is normal. LABS: 01/31: Note: Hemoglobin 7.2. CT of the abdomen and pelvis shows no acute process. Stool was negative for occult blood. CT of the chest did show a new right upper and lower lobe pneumonia. No edema. Pale. Dry mucous membranes. ASSESSMENT: 1. ANEMIA 2. RIGHT UPPER AND LOWER LOBE PNEUMONIA 3. SEVERE COPD, OXYGEN DEPENDENT 4. HYPERTENSION 5. ANXIETY/DEPRESSION PLAN: 1. We will admit. 2. CBC, CMP daily. 3. Continue all home medications. 4. Continue neb treatments, Xopenex t.i.d. AYAD. 5. Continue Pulmicort nebs b.i.d. AYAD. 6. Type and cross, transfuse 2 units of packed red blood cells with H & H to follow. 7. Regular diet. 8. Oxygen from 1 to 3L to keep 02 sat greater than 90. 9. UA with culture if indicated. 10. Will start on Rocephin 1 gm IV daily for pneumonia. 11. Will follow closely. TIME SPENT: More than 70 minutes. MTDD
[2018-02-02] MEDS ORDERED: CATAPRES PO PRN (15:01)
[2018-02-02] MEDS: PULMICORT 0.5 MG/2 ML NEB SCH (16:57)
[2018-02-02] MEDS: LIPITOR PO SCH (20:30)
[2018-02-02] MEDS: K-DUR PO SCH (20:32)
[2018-02-02] MEDS: CRESTOR PO SCH (20:32)
--- NOTE | 2018-02-02 21:40 | CT ---
EXAM: CT Head with and without contrast. HISTORY: Confusion. COMPARISON: CT 04/14/2017. MRI 05/17/2015. TECHNIQUE: Multiple axial images of the brain were obtained from the skull base through the vertex p rior to and following intravenous administration of 75 mL of Omnipaque 350, low osmolar. Multiplanar reformats were provided. FINDINGS: There is no intracranial hemorrhage or extraaxial collection. Ovoid homogeneously enhanci ng extra-axial mass in the right sylvian fissure measuring 1.5 x 1.3 x 1.5 cm seen on postcontrast ax ial image 15 and coronal image 25 which is mildly increased in size since previous MRI. No adjacent mass effect or edema on the right cerebral hemisphere noted. The rowe-white differentiation is mainta ined without evidence for acute large vascular territory infarction. Cortical sulci and ventricles a re enlarged. Periventricular and subcortical white matter low attenuation seen throughout both cereb ral hemispheres. The cortical sulci and basal cisterns are well visualized. No areas of abnormal en hancement are identified. There is no hydrocephalus, mass effect, or midline shift. The paranasal s inuses and mastoid air cells are clear. The calvarium is intact. Atherosclerotic calcifications pres ent. Since the prior study, there has been no significant interval change. IMPRESSION: 1. No acute intracranial abnormality. 2. 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 Comparison with m ore recent CTs is difficult due to lack of intravenous contrast. No adjacent mass effect or edema.. 3. Stable chronic small vessel ischemic changes and atrophy.
[2018-02-03] MEDS: XOPENEX 1.25 MG NEB SCH ×2 (04:45→11:08)
[2018-02-03] MEDS: PULMICORT 0.5 MG/2 ML NEB SCH (04:45)
[2018-02-03] MEDS: CARAFATE PO SCH ×2 (06:09→11:03)
[2018-02-03] MEDS: PROTONIX PO SCH (06:09)
[2018-02-03] MEDS: NORCO 10-325 PO SCH (09:01)
[2018-02-03] MEDS: COREG PO SCH (09:01)
[2018-02-03] MEDS: CYMBALTA PO SCH (09:02)
[2018-02-03] MEDS: FERROUS SULFATE PO SCH (09:02)
[2018-02-03] MEDS: NORVASC PO SCH (09:02)
[2018-02-03] MEDS: DALIRESP PO SCH (09:03)
[2018-02-03] MEDS: XANAX PO SCH (09:03)
[2018-02-03] MEDS: LEXAPRO PO SCH (09:04)
[2018-02-03] MEDS: COLACE PO SCH (09:04)
[2018-02-03] MEDS: LYRICA PO SCH (09:05)
[2018-02-03] MEDS: ROCEPHIN 1 GM in SODIUM CHLORIDE 50 ML IV SCH (09:05)
[2018-02-03] MEDS: NON-FORMULARY MEDICATION (Tiotropium Br/Olodaterol Hcl [Stiolto Respimat Inhal Spray] 2 PU IH SCH (09:06)
--- NOTE | 2018-02-03 09:10 | PCM.PROG ---
Attending Provider: ATTENDING PROVIDER: Dr. SIDDHARTHA BRITO DATE OF SERVICE: 02/03/18 SUBJECTIVE: This 72 year old WHITE/ F was hospitalized 01/31/18. The patient is hospitalized with severe anemia requiring blood transfusion. The patient had similar problem three weeks ago for which she went to [facility] ([facility]) and was given several units of PRBCs. EGD showed bleeding ulcer. Neither or patient remembered that. Also, the daughter did not know about it. The problem is all are forgetful or not paying attention. In any case, the patient is stable, has no evidence of GI bleed. Hemoglobin and hematocrit are stable at 10 and 31 respectively. Appetite is improved. Cardiovascular status is stable. No evidence of pneumonia; chest x-ray suspect. In any case, she is being treated. Oxygen saturation is stable. REVIEW OF SYSTEMS: CONSTITUTIONAL: No night sweats. No fatigue, malaise, lethargy. No fever or chills. HEENT: Eyes: No visual changes. No eye pain. No eye discharge. ENT: No runny nose. No epistaxis. No sinus pain. No odynophagia. No congestion. RESPIRATORY: No cough, no congestion. No hemoptysis. No shortness of breath. CARDIOVASCULAR: No angina symptoms. No CHF symptoms. No atypical chest pain for CAD. No palpitations. No orthopnea.. GASTROINTESTINAL: No abdominal pain. No nausea or vomiting. No diarrhea or constipation. No hematemesis. No hematochezia. GENITOURINARY: No urgency. No frequency. No dysuria. No hematuria. No obstructive symptoms. No discharge. No pain. No significant abnormal bleeding. MUSCULOSKELETAL: No musculoskeletal pain; no joint swelling. NEUROLOGICAL: Awake, alert, oriented to place and person. No headache. No neck pain. No syncope. No seizures. No dizziness. PSYCHIATRIC: Not anxious. No depression. No suicidal thoughts. No homicidal thoughts. SKIN: No rash. No lesions. No wounds. ENDOCRINE: No unexplained weight loss. No weight gain. HEMATOLOGIC/LYMPHATIC: No anemia. No purpura. No petechiae. No prolonged or excessive bleeding. No palpable lymph nodes. PHYSICAL EXAMINATION: GENERAL: The patient is awake, alert and oriented, lying in bed in no distress. VITAL SIGNS: Temperature 97.9 F, Pulse 70, Respiratory Rate 14, BP 167/78, Pulse Ox 97% HEENT: Head normocephalic, atraumatic. Eyes: Extraocular muscles are intact. Pupils are equal, round and reactive to light and accommodation. Ears: No lesions. Nose appeared normal. Throat: No exudate or erythema. NECK: Supple. No JVD, no carotid bruit. No lymphadenopathy or thyromegaly. LUNGS: Clear to auscultation. Percussion note normal. Chest symmetrical. HEART: S1, S2, no S3. No murmurs. No cyanosis or clubbing. No ascites. Pulses: Dorsalis pedis and posterior tibial pulses +1 to +2 both sides. ABDOMEN: Soft. Non-tender. Bowel sounds active. No CVA tenderness. No mass felt. EXTREMITIES: No edema. Full range of motion of all extremities, equal. NEUROLOGIC: No focal deficit. Cranial nerves II through XII are grossly intact. No headache, no double vision or headache. SKIN: Warm and dry. Intact. Turgor-normal. LYMPHATIC: No palpable lymph nodes/no lymphedema. MUSCULOSKELETAL: Normal joints with no swelling. Muscle tone is normal. LAB REVIEW: 02/03/18 05:05 02/03/18 05:05 02/03/18 05:05: Sodium 139.4, Potassium 3.55, Chloride 98.5, Carbon Dioxide 38.5 H, Anion Gap 5.95, BUN 15.6, Creatinine 0.65, Estimated GFR (MDRD) 90.00, BUN/Creatinine Ratio 24.00, Glucose 102.1, Calcium 8.80, Total Bilirubin 0.32, AST 22.4, ALT 28.5, Alkaline Phosphatase 69.1, Total Protein 5.87 L, Albumin 3.20 L, Globulin 2.67, Albumin/Globulin Ratio 1.19 02/03/18 05:05: WBC 4.17 L, RBC 3.42 L, Hgb 9.9 L, Hct 31.1 L, MCV 90.9, MCH 28.9, MCHC 31.8, RDW Coeff of Tr 17.2 H, Plt Count 83 L, Immature Gran % (Auto ) 1.4, Neut % (Auto) 59.6, Lymph % (Auto) 26.6, [place] % (Auto) 12.2 H, Eos % ( Auto) 0.0, Baso % (Auto) 0.2, Immature Gran # (Auto) 0.1, Neut # (Auto) 2.5, Lymph # (Auto) 1.1, [place] # (Auto) 0.5, Eos # (Auto) 0.0, Baso # (Auto) 0.0 02/02/18 09:10: Puncture Site R rad, O2 Saturation 91.0 L, ABG pH 7.399, ABG pCO2 56.0 H, ABG pO2 64.0 L, ABG HCO3 34.6 H, ABG Total CO2 36 H, ABG Base Excess 10 H, Miki Test +, O2 Delivery Device Nc, Oxygen Liter Flow 2.00 ASSESSMENT/PLAN: 1. Anemia seems stable with no evidence of GI bleed. Will continue Protonix twice a day and Carafate four times a day. Will continue iron. 2. Bonds catheter inserted and 1000 mL of urine was found in the bladder. Bonds will be taken out and bladder training will be started. 3. Likely the patient will be discharged tomorrow. 4. Appointment is already scheduled for colonoscopy next month at [facility]. The patient is strongly advised to keep appointment. 5. The patient also has appointment with [facility] for panic disorder for which Xanax seems to be working. 6. The patient is encouraged to eat good, up and about. Plan and coordination of the patient's care discussed in the presence of Software Developer Manager and nurse. CONDITION: STABLE. PROGNOSIS IS POOR. SCRIBED BY: KENISHA FRY [employer]ision Aircraft Structure Assembler scribed while in presence of service performed by Dr. SIDDHARTHA BRITO on 02/03/18 ([id number])
[2018-02-03 09:56] VITALS: BP 179/76; TEMP 98
--- NOTE | 2018-02-03 12:42 | CM.DICTOOL ---
ADMISSION: 01/31/18 19:05 DISCHARGE: 02/03/18 DATE OF SERVICE: 02/03/18 FINAL DIAGNOSIS ANEMIA (H&H 7.2/22.5) (TRANSFUSED 2 UNITS PRBC'S ON 01/31/18) PEPTIC ULCER/UPPER GI BLEED, 01/04 ([facility]-DR. 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, [address] HYPERTENSION CAD S/P STENT APPLICATION CAROTID OCCLUSIVE DISEASE DYSLIPIDEMIA ANEMIA PERIPHERAL ARTERIAL DISEASE NEUROPATHY VASCULAR DEMENTIA DJD SPINE OSTEOARTHRITIS ABDOMINAL AORTIC ANEURYSM, 1997 (3[address] ABD/PELVIS AT [facility], 01/31/18) HYSTERECTOMY, 1989 AORTOILIAC BYPASS CARDIAC STENT APPLICATION CHRONIC SMOKER LAST VITALS Temp Pulse Resp BP Pulse Ox 98 F 72 20 179/76 H 97 02/03/18 09:55 02/03/18 09:55 02/03/18 09:55 02/03/18 09:55 02/03/18 09:55 TAKE THESE MEDICATIONS AT HOME Alprazolam (Xanax) 0.25 mg PO TID [facility] Last Admin: 02/03/18 09:03 Dose: 0.25 mg Amlodipine Besylate (Norvasc) 5 mg PO BID [facility] Last Admin: 02/03/18 09:02 Dose: 5 mg Atorvastatin Calcium (Lipitor) 40 mg PO BEDTIME [facility] Last Admin: 02/02/18 20:30 Dose: 40 mg Budesonide (Pulmicort 0.5 Mg/2 Ml) 1 vial NEB RTBID [facility] Last Admin: 02/03/18 04:45 Dose: 1 vial Carvedilol (Coreg) 25 mg PO BIDWM [facility] Last Admin: 02/03/18 09:01 Dose: 25 mg Cefalexin (Keflex) 500 mg PO TID x 10 DAYS Clonidine (Catapres) 0.1 mg PO DAILY PRN PRN Reason: systolic B/P greater than 160 Last Admin: 02/02/18 17:23 Dose: 0.1 mg Docusate Sodium (Colace) 200 mg PO HS [facility] Last Admin: 02/03/18 09:04 Dose: 200 mg Duloxetine HCl (Cymbalta) 30 mg PO DAILY [facility] Last Admin: 02/03/18 09:02 Dose: 30 mg Escitalopram Oxalate (Lexapro) 30 mg PO DAILY [facility] Last Admin: 02/03/18 09:04 Dose: 30 mg Ferrous Sulfate (Ferrous Sulfate) 324 mg PO BID [facility] Last Admin: 02/03/18 09:02 Dose: 324 mg Hydrocodone Bitart/Acetaminophen ([place] 10-325) 1 tab PO BID [facility] Last Admin: 02/03/18 09:01 Dose: 1 tab Levalbuterol HCl (Xopenex 1.25 Mg) 1 vial NEB RTQ8H [facility] Last Admin: 02/03/18 11:08 Dose: 1 vial Pantoprazole Sodium (Protonix) 40 mg PO BIDAC [facility] Last Admin: 02/03/18 06:09 Dose: 40 mg Potassium Chloride (K-Dur) 20 meq PO BEDTIME [facility] Last Admin: 02/02/18 20:32 Dose: 20 meq Pregabalin (Lyrica) 50 mg PO BID [facility] Last Admin: 02/03/18 09:05 Dose: 100 mg Roflumilast (Daliresp) 500 mcg PO DAILY [facility] Last Admin: 02/03/18 09:03 Dose: 500 mcg Rosuvastatin Calcium (Crestor) 20 mg PO BEDTIME [facility] Last Admin: 02/02/18 20:32 Dose: 20 mg Sucralfate (Carafate) 1 gm PO ACHS [facility] Last Admin: 02/03/18 11:03 Dose: 1 gm Tiotropium Br/Olodaterol Hcl [Stiolto Respimat Inhal [place]] 2 puff IH DAILY [facility] Last Admin: 02/03/18 09:06 Dose: 2 puff Tramadol HCl (Ultram) 50 mg PO Q12HR PRN PRN Reason: MODERATE PAIN Last Admin: 02/02/18 23:53 Dose: 50 mg ALLERGIES No Known Allergies Allergy (Verified 12/30/17 16:42) DISCONTINUED MEDICATIONS Alprazolam (Xanax) 0.25 mg PO BID Amlodipine Besylate (Norvasc) 10 mg PO Daily Escitalopram Oxalate (Lexapro) 10 mg PO Daily Hydrocodone Bitart/Acetaminophen 10-325 mg PO TID PRN Pregabalin (Lyrica) 200 mg PO BID NEW PRESCRIPTIONS: Alprazolam 0.25 mg PO TID 30 Days tablet 02/03/18 Amlodipine Besylate [Norvasc] 5 mg PO BID 30 Days tablet 02/03/18 Cephalexin [Keflex] 500 mg PO TID #30 capsule 02/03/18 Duloxetine HCl [Cymbalta] 30 mg PO DAILY 30 Days capsule. 02/03/18 Escitalopram Oxalate 30 mg PO DAILY 30 Days tablet 02/03/18 Pregabalin [Lyrica] 50 mg PO BID 30 Days capsule 02/03/18 SMOKING: CURRENT DAILY SMOKER THE PATIENT HAS RECEIVED A PLETHORA OF INFORMATION ON MULTIPLE OCCASIONS, INCLUDING THIS STAY, REGARDING THE BENEFITS OF COMPLETE SMOKING CESSATION. SHE HAS BEEN MADE WELL AWARE OF THE RISKS ASSOCIATED WITH CONTINUING THIS HABIT. SHE HAS CUT DOWN THE FREQUENCY OF SMOKING BUT HAS BEEN UNABLE TO STOP COMPLETELY. WE WILL CONTINUE TO PROVIDE ENCOURAGEMENT FOR COMPLETE CESSATION DURING OUTPATIENT VISITS. DISEASE SPECIFIC EDUCATION: UPPER GI ULCERS GASTROINTESTINAL BLEED ANEMIA PRBC TRANSFUSION HYPERTENSION HOME MEDICATIONS AND CHANGES MADE DURING THIS STAY NEW MEDICATIONS FOLLOW UP REFERRAL APPOINTMENTS LAB REVIEW: 02/03/18 05:05 02/03/18 05:05 02/03/18 05:05: Sodium 139.4, Potassium 3.55, Chloride 98.5, Carbon Dioxide 38.5 H, Anion Gap 5.95, BUN 15.6, Creatinine 0.65, Estimated GFR (MDRD) 90.00, BUN/Creatinine Ratio 24.00, Glucose 102.1, Calcium 8.80, Total Bilirubin 0.32, AST 22.4, ALT 28.5, Alkaline Phosphatase 69.1, Total Protein 5.87 L, Albumin 3.20 L, Globulin 2.67, Albumin/Globulin Ratio 1.19 02/03/18 05:05: WBC 4.17 L, RBC 3.42 L, Hgb 9.9 L, Hct 31.1 L, MCV 90.9, MCH 28.9, MCHC 31.8, RDW Coeff of Tr 17.2 H, Plt Count 83 L, Immature Gran % (Auto ) 1.4, Neut % (Auto) 59.6, Lymph % (Auto) 26.6, Rooks % (Auto) 12.2 H, Eos % ( Auto) 0.0, Baso % (Auto) 0.2, Immature Gran # (Auto) 0.1, Neut # (Auto) 2.5, Lymph # (Auto) 1.1, Rooks # (Auto) 0.5, Eos # (Auto) 0.0, Baso # (Auto) 0.0 PLAN: [facility]CHARGE TO [facility] TODAY, 02/03/[address] BRITO IN HIS OFFICE FOR FOLLOW-UP ON 02/11/18 AT 1:30 P.M. OR AT THE SENIOR LIVING DURING USUAL SENIOR LIVING ROUNDS IN APPROX ONE WEEK KEEP YOUR APPOINTMENT WITH DR. MOSER/LANA ELY APRN, ON 04/06/18 AT 9:40 A.M. [facility] [address] [place] [address], [address] [place] [address] PHONE# [phone] THAT OFFICE MAY PHONE YOU TO RESCHEDULE THIS APPOINTMENT IF AN EARLIER TIME SLOT BECOMES AVAILABLE THROUGH CANCELLATION KEEP YOUR APPOINTMENT WITH [facility]/GIGI LEÓN ON AT 10:[address] [place] [address] PH# [phone] CRISIS LINE# TAKE [facility] MEDICAL RECORDS PROVIDED AT DISCHARGE TO THIS APPOINTMENT PARKING IS DIFFICULT. GO EARLY TO FIND A PARKING SPOT BEHIND THE [facility] ENTER THROUGH THE [place] DOORS TO THE FAR RIGHT. GO TO THE FIRST OFFICE ON THE RIGHT RESUME YOUR HOME MEDICATIONS PER LIST PROVIDED BY THE NURSING STAFF PLEASE NOTE THE FOLLOWING CHANGES: ALPRAZOLAM (XANAX) 0.25 MG THREE TIMES DAILY (WAS TWICE DAILY) AMLODIPINE BESYLATE (NORVASC) 5 MG TWICE DAILY (WAS 10 MG DAILY) DULOXETINE HCL (CYMBALTA) 30 MG DAILY HAS BEEN ADDED BACK TO YOUR MEDICATIONS ESCITALOPRAM OXALATE (LEXAPRO) 30 MG DAILY (WAS 10 MG DAILY) HYDROCODONE BITART/ACETAMINOPHEN (NORCO 10-325 MG) 1 TAB PO TWICE DAILY SCHEDULED DISCONTINUE THE [place] 10-325 MG THREE TIMES DAILY PRN PREGABALIN (LYRICA) 50 MG TWICE DAILY (WAS 200 MG TWICE DAILY) NEW MEDICATIONS KEFLEX 500 MG, TAKE ONE CAPSULE BY MOUTH THREE TIMES DAILY FOR 10 DAYS ACTIVITY RESUME PHYSICAL THERAPY/OCCUPATIONAL THERAPY AT THE SENIOR LIVING DIET TOLERATED SUMMARY THE PATIENT IS ALERT AND ORIENTED X3 THIS MORNING. DURING THIS HOSPITALIZATION , SHE HAS OCCASIONALLY BECOME CONFUSED AND AGITATED. SHE WAS REORIENTED EASILY AND RECOGNIZED THAT SHE WAS CONFUSED. SHE REQUIRES ASSISTANCE WITH ADL'S AND IS WEAKENED DUE TO MULTIPLE MEDICAL ISSUES AND FREQUENT HOSPITALIZATIONS. [facility] SO THAT SHE MAY RETURN HOME. SHE DESIRES TO RETURN THERE TO COMPLETE HER REHABILITATION. AT HOME MS. BERMUDEZ HAS OXYGEN FOR CONTINUOUS USE, NEBULIZER, WALKER, SHOWER CHAIR AND AUTOMATIC BLOOD PRESSURE MONITOR. THE SKIN TURGOR IS INTACT BUT HAS MULTIPLE AREAS OF BRUISING IN VARIOUS STAGES OF HEALING. THERE IS NO EDEMA. MS. BERMUDEZ HAS A FAIR TO GOOD APPETITE AND HYDRATION STATUS. WE HAVE MADE ARRANGEMENTS FOR HER TO SEE A CREW CALLER, DR. MOSER/LANA ELY APRN AND A MENTAL HEALTH SPECIALIST, MAHOGANY LEÓN, AT [facility]. DR. MOSER PROVIDED CARE FOR MS. BERMUDEZ DURING HER RECENT STAY AT [facility] IN [place], [place]. ACCORDING TO HIS OFFICE, SHE WAS DIAGNOSED WITH GASTRIC ULCER/GI BLEED AND RECEIVED BLOOD TRANSFUSIONS DURING THAT STAY. SHE ALSO UNDERWENT ENDOSCOPY ON 01/13/[address] MOSER. AT OUR REQUEST, HIS OFFICE HAS PLACED MS. BERMUDEZ ON THE APPOINTMENT CANCELLATION LIST SO THAT HER APPOINTMENT MAY BE RESCHEDULED FOR AN EARLIER DATE. TODAY SHE AND HER SPOUSE ARE AWARE AND AGREEABLE FOR DISCHARGE. CURRENT CODE STATUS DO NOT INTUBATE, CPR ONLY SIDDHARTHA BRITO M.D.
--- NOTE | 2018-02-04 09:11 | ECHOCOLOR ---
Date of Exam: 02/02/18 Ordering Physician: DR. SIDDHARTHA BRITO Reason for Echo: RESPIRATORY FAILURE, HISTORY OF ARTERIOSCLEROTIC HEART DISEASE M-Mode Normal Adult Results LV Dimensions Normal Adult Results AoV Opening excursions >1.6 >1.6 LVEDD-base- 3.5-5.8 4.5 Ao root dimensions 2.0-3.7 3.0 LVESD-base- 3.1-4.6 L. Atrium dimensions 1.9-3.8 4.3 Post. Wall thickness 0.8-1.1 1.2 IV septum (thickness) 0.7-1.2 1.3 Post. Wall excursion 0.72-1.3 NORMAL Septal motion NORMAL Systolic motion R. Ventricular cavity 1.5-2.0 3.0 LVEF 60% 64% Paradoxical septal wall motion NORMAL 2-D: 2-D M Mode Echocardiogram was performed using apical four chamber and left parasternal long and short axis views. Mitral, tricuspid and aortic valves appear to be normal. Contractility of the left ventricle seems to be normal, so is the cavity size. Enlarged Left atrial cavity size and enlarged right ventricle cavity. Aortic root appears to be normal. There is no pericardial effusion. There is no thrombus noted in the left ventricular or left aortic cavity. No mitral valve prolapse noted. DOPPLER WITH COLOR FLOW: Moderate tricuspid regurgitation--trivial to mild tricuspid regurgitation and mitral regurgitation. valvular flow indices normal. Inferior vena cava collapses well. M-MODE: MV: NORMAL AV: NORMAL TV: NORMAL PV: CHAMBER SIZE: ENLARGED LEFT ATRIAL AND RIGHT VENTRICLE CAVITIES WALL MOTION: NORMAL PERICARDIUM: NORMAL INTERPRETATION: 1. LEFT VENTRICULAR HYPERTROPHY WITH ENLARGED LEFT ATRIAL CAVITY 2. ENLARGED RIGHT VENTRICLE CAVITY AND MODERATE TRICUSPID REGURGITATION 3. TRIVIAL TRICUSPID REGURGITATION AND MITRAL REGURGITATION 4. EVIDENCE OF PULMONARY HYPERTENSION MTDD
--- NOTE | 2018-02-04 11:37 | DS ---
DATE OF SERVICE: 02/03/18 FINAL DIAGNOSIS: 1. ANEMIA (H&H 7.2/22.5) (TRANSFUSED 2 UNITS PRBC'S ON 01/31/18) 2. PEPTIC ULCER/UPPER GI BLEED, 01/04 ([facility] - DR. MOSER) 3. PNEUMONIA, RIGHT UPPER AND RIGHT LOWER LOBES 4. URINARY HESITANCY 5. CONSTIPATION 6. COPD 7. DEPRESSION/ANXIETY/PANIC EPISODES 8. CHRONIC RESPIRATORY FAILURE (OXYGEN DEPENDENT) 9. PULMONARY NODULE, [address] 10. HYPERTENSION 11. CAD, S/P STENT APPLICATION 12. CAROTID OCCLUSIVE DISEASE 13. DYSLIPIDEMIA 14. ANEMIA 15. PERIPHERAL ARTERIAL DISEASE 16. NEUROPATHY 17. VASCULAR DEMENTIA 18. DJD SPINE 19. OSTEOARTHRITIS 20. ABDOMINAL AORTIC ANEURYSM, 1997 ([address] ABDOMEN/PELVIS AT [facility], ) 21. HYSTERECTOMY, 1989 22. AORTOILIAC BYPASS 23. CARDIAC STENT APPLICATYION 24. CHRONIC SMOKER DISCHARGE INSTRUCTIONS: Followup appointment with Dr. Dawson in his office on 02/11/18 at 1:30 p.m. or at the assisted during usual assisted rounds in approximately one week. Keep your appointment with Dr. Moser/Tammie Iqbal APRN on 04/06/18 at 9:40 a.m. [facility], [address] [place] [address], [address], [place] [address]. . That office may phone you to reschedule this appointment if an earlier time slot becomes available through cancellation. Take [facility] Medical Records provided at discharge to this appointment. MEDICATIONS AT DISCHARGE: Xanax 0.25 mg p.o. t.i.d. AYAD Norvasc 5 mg p.o. b.i.d. AYAD Lipitor 40 mg p.o. bedtime AYAD Pulmicort 0.5 mg/2 mL Neb b.i.d. AYAD Coreg 25 mg p.o. b.i.d. with meal AYAD Keflex 500 mg p.o. t.i.d. times 10 days Catapres 0.1 mg p.o. daily p.r.n. Colace 200 mg p.o. h.s. AYAD Cymbalta 30 mg p.o. daily AYAD Lexapro 30 mg p.o. daily AYAD Ferrous Sulfate 324 mg p.o. b.i.d. AYAD [place] 10-325 one tab p.o. b.i.d. AYAD Xopenex 1.25 mg neb q.8h AYAD Protonix 40 mg p.o. b.i.d. a.c. AYAD K-Dur 20 mEq p.o. bedtime AYAD Lyrica 50 mg p.o. b.i.d. AYAD Daliresp 500 mcg p.o. daily AYAD Crestor 20 mg p.o. bedtime AYAD Carafate 1 gm p.o. a.c. h.s. AYAD Stiolto Respimat two puff IH daily AYAD Tramadol 50 mg p.o. q.12h p.r.n. MEDICATION CHANGES: Xanax 0.25 mg three times daily (was twice daily) Norvasc 5 mg twice daily (was 10 mg daily) Cymbalta 30 mg daily has been added back to your medications Lexapro 30 mg daily (was 10 mg daily) Hydrocodone/Bitart/Acetaminophen ([place] 10-325 mg) one tab p.o. twice daily scheduled Discontinue the [place] 10-325 mg three times daily p.r.n. Lyrica 50 mg twice daily (was 200 mg twice daily) DISCONTINUED MEDICATIONS: Xanax 0.25 mg p.o. b.i.d. Norvasc 10 mg p.o. daily Lexapro 10 mg p.o. daily Hydrocodone/Acetaminophen 10-325 mg p.o. t.i.d. p.r.n. Pregabalin/Lyrica 200 mg p.o. b.i.d. NEW PRESCRIPTIONS: Keflex 500 mg take one capsule by mouth three times daily for 10 days Alprazolam 0.25 mg p.o. t.i.d. 30 days Norvasc 5 mg p.o. b.i.d. 30 days Cymbalta 30 mg p.o. daily Escitalopram Oxalate 30 mg p.o. daily Pregabalin (Lyrica) 50 mg p.o. b.i.d. 30 days DIET INSTRUCTIONS: As tolerated. ACTIVITY: Resume Physical Therapy/Occupational Therapy at the assisted. SMOKING: Current daily smoker. The patient has received a plethora of information on multiple occasions including the stay, regarding the benefits of complete smoking cessation. She has been made well aware of the risks associated with continuing this habit. She has cut down the frequency of smoking but has been unable to stop completely. We will continue to provide encouragement for complete cessation during outpatient visits. DISEASE SPECIFIC EDUCATION: Upper GI ulcers Gastrointestinal bleed Anemia PRBC transfusion Hypertension Home medication and changes made during this stay New medications Follow up Referral appointments HOSPITAL COURSE: This is a 72-year-old White/ female hospitalized with severe anemia. The patient was given 2 units of packed red blood cells. Hemoglobin and hematocrit were stable after blood transfusion. No evidence of active GI bleed. The patient had hospitalization for GI bleed with blood transfusion at [facility]. EGD was done which showed bleeding ulcer; that was 3 to 4 weeks ago. The patient was discharged on Protonix and is now going to be on Protonix and Carafate. Colonoscopy will be done next week. The patient is in stable condition. Also referred to Kee Galaviz for panic disorder which seems to be under control at present time. Xanax is helping some. She is referred to GI for colonoscopy and is strongly advised to followup with solution sales senior executive. The patient's had no idea of patient having an EGD several weeks ago; both are forgetful. The is not able to take care of her the way he should and is doing his best. The family is not much help. The patient has early stage dementia, is oriented times three but depends on help from family. After her days from Medicare runs out she will be home. Prognosis is not good considering noncompliance and poor support structure. Condition stable. TIME SPENT: More than 60 minutes. [facility]
--- NOTE | 2018-02-04 11:39 | PN ---
CODING FOR BILLING 01/31/18 LEVEL 5 - ADMISSION 02/01/18 INTERMEDIATE 02/02/18 INTERMEDIATE 02/03/18 DISCHARGE MTDD
== END 2018-02-03 13:40 | DRG 947 ==
LOC: ED 17:21 → MEDSURG B 19:05
PROVIDERS: ADMIT Internal Medicine; ATTEND Internal Medicine
PROC: 30233N1 Transfusion of Nonautologous Red Blood Cells into Peripheral Vein, Percutaneous Approach (ICD-10-PCS; principal; 2018-01-31)
PROC: 30233N1 Transfusion of Nonautologous Red Blood Cells into Peripheral Vein, Percutaneous Approach (ICD-10-PCS; 2018-02-01)
DX: R53.1 Weakness (principal); J18.9 Pneumonia, unspecified organism; J96.10 Chronic respiratory failure, unspecified whether with hypoxia or hypercapnia; J44.9 Chronic obstructive pulmonary disease, unspecified; I10 Essential (primary) hypertension; I25.10 Atherosclerotic heart disease of native coronary artery without angina pectoris; I73.9 Peripheral vascular disease, unspecified; R39.11 Hesitancy of micturition; R91.1 Solitary pulmonary nodule; R06.02 Shortness of breath; K59.00 Constipation, unspecified; F41.8 Other specified anxiety disorders; F01.50 Vascular dementia, unspecified severity, without behavioral disturbance, psychotic disturbance, mood disturbance, and anxiety; E78.5 Hyperlipidemia, unspecified; G62.9 Polyneuropathy, unspecified; M47.9 Spondylosis, unspecified; M19.90 Unspecified osteoarthritis, unspecified site; Z99.81 Dependence on supplemental oxygen
CPT/HCPCS: 36415; 36430; 80053; 81001; 82272; 82550; 82607; 82803; 84484; 85025; 85610; 85730; 86850; 86900; 86922; 87081; 93005; 93010; 94640; 99223; 99232; 99239; 99284

== ENCOUNTER 2018-02-11 22:20 | Outpatient (CLI) | END 2018-02-11 22:48 | disposition short-term general hospital (02) | LOC: AMBL 22:20 | PROVIDERS: ATTEND Family Medicine | DX: S79.912A Unspecified injury of left hip, initial encounter (principal); W19.XXXA Unspecified fall, initial encounter; J44.9 Chronic obstructive pulmonary disease, unspecified; Z99.81 Dependence on supplemental oxygen ==

== ENCOUNTER 2018-02-21 18:19 | Outpatient (CLI) | END 2018-02-21 18:37 | LOC: AMBL 18:19 | PROVIDERS: ATTEND Family Medicine | DX: S72.92XA Unspecified fracture of left femur, initial encounter for closed fracture (principal); R41.0 Disorientation, unspecified; J44.9 Chronic obstructive pulmonary disease, unspecified; Z99.81 Dependence on supplemental oxygen ==

== ENCOUNTER 2018-02-26 16:01 | Outpatient (CLI) | END 2018-02-26 16:18 | disposition short-term general hospital (02) | LOC: AMBL 16:01 | PROVIDERS: ATTEND Internal Medicine Geriatric Medicine | DX: D64.9 Anemia, unspecified (principal); J44.9 Chronic obstructive pulmonary disease, unspecified; Z99.81 Dependence on supplemental oxygen ==